=== PATIENT | female | born 1960 | race African-American/Black ===

== ENCOUNTER 2017-07-01 05:39 | Inpatient (IN) | payer MEDICARE, MEDICAID ==
[2017-07-01] VITALS (9 sets, daily range): BP systolic 105–140; BP diastolic 58–97
[~2017-07-01] VITALS: Ht 162.6 cm; Wt 155.6 kg
[~2017-07-01 05:39] MED LIST: DIPH25CA6 PO; ESCI20TA45 PO; FLUT16SP22 NSEACH; HYDR25TA4 PO; POTA10CA43 PO
[2017-07-01] MEDS ORDERED: RT-ALBUTEROL SULF 2.5 MG/3 ML PRE-MIX VIAL INH STA (05:53)
[2017-07-01 06:09] LABS: BASOPHILS % (AUTO) 0 % (0-10); EOSINOPHILS # (AUTO) 0.1 10^3/uL (0.0-0.3); EOSINOPHILS % (AUTO) 1 % (0-10); LYMPHOCYTES # (AUTO) 1.3 X 10^3 (1.0-4.0); LYMPHOCYTES % (AUTO) 9 % (12-44); MEAN CORPUSCULAR HEMOGLOBIN 28 PG (25-34); MEAN CORPUSCULAR HGB CONC 33 G/DL (32-36); MEAN CORPUSCULAR VOLUME 84 FL (80-99); MEAN PLATELET VOLUME 9.3 FL (7.4-10.4); MONOCYTES # (AUTO) 0.5 X 10^3 (0.0-1.0); MONOCYTES % (AUTO) 4 % (0-12); NEUTROPHILS % (AUTO) 86 % (42-75); PLATELET COUNT 298 10^3/uL (130-400); RED BLOOD COUNT 4.79 10^6/uL (4.35-5.85); WHITE BLOOD COUNT 13.9 10^3/uL (4.3-11.0)
[2017-07-01 06:10] LABS: BILIRUBIN,URINE NEGATIVE (NEGATIVE); KETONES,URINE NEGATIVE (NEGATIVE); LEUKOCYTE ESTERASE ,URINE 1+ (NEGATIVE); NITRITE,URINE POSITIVE (NEGATIVE); PH,URINE 6 (5-9); PROTEIN,URINE NEGATIVE (NEGATIVE); UROBILINOGEN,URINE NORMAL (NORMAL)
[2017-07-01] MEDS ORDERED: NS IV 1000 ML 1,000 ML IV ONE (06:19)
[2017-07-01 06:21] LABS: PROTHROMBIN TIME PATIENT 12.8 SEC (12.2-14.7)
--- NOTE | 2017-07-01 06:26 | ED Respiratory ---
General Chief Complaint: Respiratory Problems Stated Complaint: SOB Source: patient, old records (ONLY OTHER VISIT IS 06/18/17--ADMITTED FOR OBSERVATION FOR CHEST PAIN-WORK UP NEGATIVE AT THAT TIME. ) History of Present Illness Time seen by provider: 06:00 Initial Comments ASSUMED CARE FROM DR. STACK PT ARRIVED VIA EMS FROM HOME PT STATES SHE BEGAN HAVING DIFFICULTY BREATHING AROUND 0300 THIS AM--CLAIMS SHE FELT FINE YESTERDAY ( THANKSGIVING ) PT HAS SARCOIDOSIS AND HAS A PERMANENT TRACH AND WEARS O2 AT 3L CONTINUOUSLY-- REPORTEDLY WAS ALMOST OUT OF OXYGEN AT HOME, YET HAS AN OXYGEN CONCENTRATOR. PT HAD NEB TREATMENT PRIOR TO ARRIVAL O2 SAT 88% ON O2 AT SCENE, PER EMS. PT HAS HAD A MILD COUGH PT UNAWARE THAT SHE HAD FEVER--WAS 101.5 ON ARRIVAL TO ER NO SWELLING IN LEGS/FEET PT WAS ADMITTED HERE 06/18/17 FOR CHEST PAIN--WORK UP NEGATIVE AT THAT TIME PCP: DR. VELASCO AT [facility] PT JUST MOVED HERE IN FEBRUARY FROM [place], [place] Allergies and Home Medications Allergies Coded Allergies: No Known Drug Allergies (Unverified , 06/18/17) Home Medications Diphenhydramine HCl 25 Mg Capsule, 25 MG PO HS PRN for ITCHING, (Reported) Escitalopram Oxalate 20 Mg Tablet, 20 MG PO DAILY PRN for ANXIETY, (Reported) Fluticasone Propionate 16 Gm [place].susp, 2 SPRAYS NSEACH HS PRN for ALLERGIES, ( Reported) Hydrochlorothiazide 25 Mg Tablet, 25 MG PO DAILY, (Reported) Potassium Chloride 10 Meq Capsule.er, 10 MEQ PO DAILY, (Reported) Constitutional: weakness EENTM: no symptoms reported Respiratory: see HPI, cough, short of breath Cardiovascular: no symptoms reported, No chest pain, No edema Gastrointestinal: no symptoms reported Genitourinary: no symptoms reported Musculoskeletal: no symptoms reported Skin: no symptoms reported Psychiatric/Neurological: No Symptoms Reported Hematologic/Lymphatic: No Symptoms Reported Immunological/Allergic: no symptoms reported Past Dndwxxm-Etdfiq-Jmkhyw Hx Patient Social History Alcohol Use: Occasionally Uses (HISTORY OF ALCOHOLISM/ABUSE--1/2 PINT TO A QUART OF GIN A DAY PLUS BEER, NOW ONLY DRINKS "OCCASIONALLY"--LAST ETOH WAS A FEW WEEKS AGO, PER PT ON 07/01/17) Recreational Drug Use: Yes (SMOKED CRACK COCAINE. DENIES IV USE. LAST USED 2016, PER PT ON 07/01/17) Smoking Status: Former Smoker (2 PPD, QUIT IN 2003) Type Used: Cigarettes Former Smoker, Quit: December 10, 2003 Recent Foreign Travel: No Contact w/Someone Who Travel: No Recent Hopitalizations: No Physical Abuse: No Sexual Abuse: No Mistreated: No Fear: No Immunizations Up To Date PED Vaccines UTD: Yes Seasonal Allergies Seasonal Allergies: No Surgeries History of Surgeries: Yes (PORT RIGHT CHEST/REMOVED; ABSCESS I&D LEFT AXILLA; PERMANENT TRACHEOSTOMY) Surgeries: Tracheostomy Respiratory History of Respiratory Disorde: Yes (PT HAS TRACH D/T SARCOIDOSIS) Respiratory Disorders: Pneumonia, Chronic Bronchitis, COPD Currently Using CPAP: No Currently Using BIPAP: No Cardiovascular History of Cardiac Disorders: Yes Cardiac Disorders: High Cholesterol, Hypertension Neurological History of Neurological Disord: No Reproductive System HEDDLER TIER History: Menopausal Genitourinary History of Genitourinary Disor: No Gastrointestinal History of Gastrointestinal Di: Yes (hepatitis C treated with Harvoni in 2015- 2016; ANAL CANCER--2011) Gastrointestinal Disorders: Hepatitis Musculoskeletal History of Musculoskeletal Dis: Yes (SARCOIDOSIS) Endocrine History of Endocrine Disorders: Yes ("BORDERLINE DIABETIC"; MORBID OBESITY) HEENT History of HEENT Disorders: Yes (PERMANENT TRACH; EDENTULOUS) Cancer History of Cancer: Yes (RECTAL/ANAL CANCER IN 2011-NO SURGERY--TREATED WITH CHEMO + RADIATION) Cancer: Rectal Did You Recieve Any Treatments: Yes Type of Tx Receive: Chemotherapy, Radiation Psychosocial History of Psychiatric Problem: Yes Behavioral Health Disorders: Anxiety, Depression Suicide Risk Score: 0 Integumentary History of Skin or Integumenta: No Blood Transfusions History of Blood Disorders: No Adverse Reaction to a Blood Tr: No Family Medical History Significant Family History: Hypertension, Lung Disease Family Medial History: Patient reports no known family medical history. Physical Exam Vital Signs Vital Sign - Last 12Hours Capillary Refill : General Appearance: mild distress, obese HEENT: PERRL/EOMI Neck: other (TRACH IN PLACE) Respiratory: respiratory distress, decreased breath sounds, accessory muscle use, wheezing (EXPIRATORY WHEEZING BILATERALLY), other (MILD DISTRESS--SPEAKS IN 1-2 WORD SENTENCES, ) Cardiovascular: no murmur, tachycardia Gastrointestinal: non tender, soft Extremities: no pedal edema, normal capillary refill Neurologic/Psychiatric: wwe wrestler II-XII nml as tested, no motor/sensory deficits, alert, normal mood/affect, oriented x 3 Skin: normal color, warm/dry Focused Exam Evaluation Lactate Level Laboratory Tests 07/01/17 05:54: Lactic Acid Level 1.69 Lactic Acid Level Laboratory Tests Test 07/01/17 05:54 Lactic Acid Level 1.69 MMOL/L (0.50-2.00) Progress/Results/Core Measures Suspected Sepsis SIRS Temperature: Pulse: Respiratory Rate: Laboratory Tests 07/01/17 05:54: White Blood Count 13.9H Blood Pressure / Mean: Laboratory Tests 07/01/17 05:54: Lactic Acid Level 1.69 Laboratory Tests 07/01/17 05:54: Creatinine 0.92, INR Comment 1.0, Platelet Count 298, Total Bilirubin 0.4 Results/Orders Lab Results Laboratory Tests Test 07/01/17 05:50 07/01/17 05:54 07/01/17 06:40 Range/Units Urine Color YELLOW Urine Clarity CLEAR Urine pH 6 5-9 Urine Specific [place] 1.010 L 1.016-1.022 Urine Protein NEGATIVE NEGATIVE Urine Glucose (UA) NEGATIVE NEGATIVE Urine Ketones NEGATIVE NEGATIVE Urine Nitrite POSITIVE H NEGATIVE Urine Bilirubin NEGATIVE NEGATIVE Urine Urobilinogen NORMAL NORMAL MG/DL Urine Leukocyte Esterase 1+ H NEGATIVE Urine RBC (Auto) 1+ H NEGATIVE Urine RBC 2-5 H /HPF Urine WBC 25-50 H /HPF Urine Crystals NONE /LPF Urine Bacteria MODERATE H /HPF Urine Casts NONE /LPF Urine Mucus NEGATIVE /LPF Urine Culture Indicated YES Urine Opiates Screen NEGATIVE NEGATIVE Urine Oxycodone Screen NEGATIVE NEGATIVE Urine Methadone Screen NEGATIVE NEGATIVE Urine Propoxyphene Screen NEGATIVE NEGATIVE Urine Barbiturates Screen NEGATIVE NEGATIVE Ur Tricyclic Antidepressants Screen NEGATIVE NEGATIVE Urine Phencyclidine Screen NEGATIVE NEGATIVE Urine Amphetamines Screen NEGATIVE NEGATIVE Urine Methamphetamines Screen NEGATIVE NEGATIVE Urine Benzodiazepines Screen NEGATIVE NEGATIVE Urine Cocaine Screen NEGATIVE NEGATIVE Urine Cannabinoids Screen NEGATIVE NEGATIVE White Blood Count 13.9 H 4.3-11.0 10^3/uL Red Blood Count 4.79 4.35-5.85 10^6/uL Hemoglobin 13.2 11.5-16.0 G/DL Hematocrit 40 35-52 % Mean Corpuscular Volume 84 80-99 FL Mean Corpuscular Hemoglobin 28 25-34 PG Mean Corpuscular Hemoglobin Concent 33 32-36 G/DL Red Cell Distribution Width 15.0 H 10.0-14.5 % Platelet Count 298 130-400 10^3/uL Mean Platelet Volume 9.3 7.4-10.4 FL Neutrophils (%) (Auto) 86 H 42-75 % Lymphocytes (%) (Auto) 9 L 12-44 % Monocytes (%) (Auto) 4 0-12 % Eosinophils (%) (Auto) 1 0-10 % Basophils (%) (Auto) 0 0-10 % Neutrophils # (Auto) 12.0 H 1.8-7.8 X 10^3 Lymphocytes # (Auto) 1.3 1.0-4.0 X 10^3 Monocytes # (Auto) 0.5 0.0-1.0 X 10^3 Eosinophils # (Auto) 0.1 0.0-0.3 10^3/uL Basophils # (Auto) 0.0 0.0-0.1 10^3/uL Prothrombin Time 12.8 12.2-14.7 SEC INR Comment 1.0 0.8-1.4 Activated Partial Thromboplast Time 28 24-35 SEC Sodium Level 141 135-145 MMOL/L Potassium Level 3.2 L 3.6-5.0 MMOL/L Chloride Level 105 98-107 MMOL/L Carbon Dioxide Level 24 21-32 MMOL/L Anion Gap 12 5-14 MMOL/L Blood Urea Nitrogen 17 7-18 MG/DL Creatinine 0.92 0.60-1.30 MG/DL Estimat Glomerular Filtration Rate > 60 BUN/Creatinine Ratio 18 Glucose Level 111 H 70-105 MG/DL Lactic Acid Level 1.69 0.50-2.00 MMOL/L Calcium Level 9.1 8.5-10.1 MG/DL Magnesium Level 1.7 L 1.8-2.4 MG/DL Total Bilirubin 0.4 0.1-1.0 MG/DL Aspartate Amino Transf (AST/SGOT) 17 5-34 U/L Alanine Aminotransferase (ALT/SGPT) 20 0-55 U/L Alkaline Phosphatase 126 40-136 U/L Troponin I < 0.30 <0.30 NG/ML B-Type Natriuretic Peptide 16.7 <100.0 PG/ML Total Protein 8.3 H 6.4-8.2 GM/DL Albumin 3.6 3.2-4.5 GM/DL Serum Alcohol < 10 <10 MG/DL Blood Gas Puncture Site LT RADIAL Blood Gas Patient Temperature 101.8 Arterial Blood pH 7.39 7.37-7.43 Arterial Blood Partial Pressure CO2 44 35-45 MMHG Arterial Blood Partial Pressure O2 99 H 79-93 MMHG Arterial Blood HCO3 25 23-27 MMOL/L Arterial Blood Total CO2 26.6 21.0-31.0 MMOL/L Arterial Blood Oxygen Saturation 98 94-100 % Arterial Blood Base Excess 1.3 -2.5-2.5 MMOL/L Aj Test YES-POS Blood Gas Ventilator Setting NO Blood Gas Inspired Oxygen 6 (TRACH) Micro Results Microbiology 07/01/17 Influenza Types A,B Antigen (YAMILETH) - Final, Complete My Orders Orders - CHARITY ESPINOZA DO Methylprednisolone Sod Succ (Solu-Medrol (07/01/17 06:30) Arterial Blood Gas (07/01/17 06:19) Influenza A And B Antigens (07/01/17 06:19) Saline Lock/Iv-Start (07/01/17 06:19) Ns Iv 1000 Ml (Sodium Chloride 0.9%) (07/01/17 06:19) Acetaminophen Tablet (Tylenol Tablet) (07/01/17 06:30) Ibuprofen Tablet (Motrin Tablet) (07/01/17 06:30) Albuterol Pre-Mix Nebs (Rt) (Proventil (07/01/17 06:30) Ipratropium 0.02% Neb Solution (Atrovent (07/01/17 06:30) Svn Sm Volume Nebulizer Rt-Rfs (07/01/17 06:22) Alcohol (07/01/17 06:47) Drug Screen Stat (Urine) (07/01/17 06:47) BNP (07/01/17 06:47) Magnesium (07/01/17 06:47) Troponin I (07/01/17 06:47) Ceftriaxone Injection (Rocephin Injectio (07/01/17 07:45) Medications Given in ED Current Medications Medications Dose Ordered Sig/Sandra Route Start Time Stop Time Status Last Admin Dose Admin Acetaminophen 1,000 mg ONCE ONCE PO 07/01/17 06:30 07/01/17 06:50 DC 07/01/17 06:32 1,000 MG Ceftriaxone Sodium 1000 mg/ Sodium Chloride 50 ml @ 100 mls/hr ONCE ONCE IV 07/01/17 07:45 07/01/17 08:14 DC 07/01/17 08:20 100 MLS/HR Ibuprofen 800 mg ONCE ONCE PO 07/01/17 06:30 07/01/17 06:50 DC 07/01/17 06:32 800 MG Ipratropium Farrell 0.5 mg ONCE ONCE IH 07/01/17 06:30 07/01/17 06:50 DC 07/01/17 06:32 0.5 MG Methylprednisolone Sodium Succinate 125 mg ONCE ONCE IVP 07/01/17 06:30 07/01/17 06:31 DC 07/01/17 06:31 125 MG Sodium Chloride 1,000 ml @ 0 mls/hr Q0M ONCE IV 07/01/17 06:19 07/01/17 06:21 DC 07/01/17 06:32 1,000 MLS/HR Vital Signs/I&O Vital Sign - Last 12Hours 07/01/17 07/01/17 07/01/17 07/01/17 05:40 05:40 06:00 06:33 Temp 101.5 Pulse 169 Resp 28 B/P (MAP) 133/97 Pulse Ox 96 96 96 97 O2 Delivery OxyMask OxyMask Trach Collar Trach Collar O2 Flow Rate 6.00 6.00 6.00 6.00 Capillary Refill : Progress Note : Progress Note O2 SATS UP TO 96% DURING NEB TREATMENT., THEN UP TO 98% FOR REMAINDER OF ER STAY AFTER NEB TREATMENT, PT IS LESS DYSPNEIC, INCREASED AERATION, AND PT NOW ABLE TO TALK IN 4-7 WORD SENTENCES. TEMP DOWN TO 99 HEART RATE DOWN TO 130'S NO HYPOTENSION AT ANY TIME. NO DETERIORATION IN PT'S CONDITION DURING ER STAY ECG Initial ECG Impression Time: 06:07 Initial ECG Rate: 157 Initial ECG Rhythm: S.Tach Initial ECG Comparisson: Unchanged (EXCEPT FOR RATE) Diagnostic Imaging Comments CXR--NONSPECIFIC PATCHY BIBASILAR INFILTRATES, INFILTRATES VS EDEMA. POSSIBLY INCREASED IN SIZE FROM PREVIOUS, BUT COULD BE DUE TO BODY HABITUS OR MOTION ARTIFACT--PER RADIOLOGIST REPORT @ 0659 Reviewed: Reviewed by Me Departure Communication (Admissions) Progress Notes 0730--ATTEMPTING TO CONTACT DR. Nishant BULLOCK, [facility] FOR [facility]. MESSAGE LEFT ON CELL ( [facility] PHONE FORWARDS TO HER CELL PHONE ) 0750--ATTEMPTING TO CONTACT DR. Nishant BULLOCK, MESSAGE LEFT ON CELL 0800--ATTEMPTING TO CONTACT DR. Nishant BULLOCK, MESSAGE LEFT ON CELL. CALLED ICU AND MEDICAL FLOORS AND THEY HAVE NOT SEEN HER THIS MORNING 08--CALLED [facility], NO PHYSICIAN IS THERE YET. VERIFIED THAT DR. BULLOCK IS [facility]. THEY HAVE NOT SPOKEN WITH HER THIS MORNING 08--ATTEMPTING TO CONTACT DR. Nishant BULLOCK. MESSAGE LEFT ON CELL. 0815--CALLED [facility] AGAIN. THEY WILL CONTACT DR. AVILA AND HAVE HER CALL ER. 0835--ATTEMPTING TO CONTACT DR. BULLOCK, MESSAGE LEFT ON CELL PHONE 0836--ATTEMPTING TO CONTACT DR. AVILA, MESSAGE LEFT ON CELL PHONE 0837--SPOKE WITH DR. SANCHEZ, HOSPITALIST, ACCEPTS PT FOR ADMIT ON BEHALF OF DR. CANELA. [phone]--DR. Nishant BULLOCK CALLED, ACCEPTS PT FOR ADMIT 0845--CALLED DR. SANCHEZ AND INFORMED HER THAT DR. BULLOCK HAD BEEN CONTACTED AND SHE HAS ACCEPTED PT FOR ADMIT Impression Impression: Primary Impression: Pneumonia Additional Impressions: Hypoxia SARCOIDOSIS WITH PERMANENT TRACHEOSTOMY UTI (urinary tract infection) Sepsis Hypokalemia Hypomagnesemia History of COPD Morbid obesity Disposition: ADMITTED INPATIENT Condition: Improved Admissions Decision to Admit Reason: Admit from ER (General) Decision to Admit/Date: Jul 01, 2017 Time/Decision to Admit Time: 07:35 Departure-Patient Inst. Referrals: BRITT VELASCO MD (PCP/Family) Primary Care Physician CHARITY ESPINOZA DO Jul 01, 2017 06:26
[2017-07-01 06:29] LABS: ALANINE AMINOTRANSFERASE 20 U/L (0-55); ALBUMIN 3.6 GM/DL (3.2-4.5); ANION GAP 12 MMOL/L (5-14); ASPARTATE AMINO TRANSFERASE 17 U/L (5-34); BILIRUBIN,TOTAL 0.4 MG/DL (0.1-1.0); BLOOD UREA NITROGEN 17 MG/DL (7-18); BUN/CREATININE RATIO 18; CALCIUM 9.1 MG/DL (8.5-10.1); CARBON DIOXIDE 24 MMOL/L (21-32); CHLORIDE 105 MMOL/L (98-107); CREATININE SERUM 0.92 MG/DL (0.60-1.30); GFR ESTIMATED > 60; GLUCOSE 111 MG/DL (70-105); POTASSIUM 3.2 MMOL/L (3.6-5.0); SODIUM 141 MMOL/L (135-145); TOTAL PROTEIN 8.3 GM/DL (6.4-8.2)
[2017-07-01 06:29] LABS: WBC,URINE 25-50 /HPF
[2017-07-01] MEDS ORDERED: IBUPROFEN 800 MG (MOTRIN) TAB PO ONE (06:30)
[2017-07-01] MEDS ORDERED: methylPREDNISolone 125 MG (Solu-MEDROL) VIAL IVP ONE (06:30)
[2017-07-01] MEDS ORDERED: RT-IPRATROPIUM (ATROVENT) 0.5MG/2.5ML AMP IH ONE (06:30)
[2017-07-01] MEDS ORDERED: ACETAMINOPHEN 500 MG TAB (TYLENOL) PO ONE (06:30)
[2017-07-01] MEDS ORDERED: RT-ALBUTEROL SULF 2.5 MG/3 ML PRE-MIX VIAL IH SCH (06:30)
[2017-07-01 06:48] LABS: ABG BASE EXCESS 1.3 MMOL/L (-2.5-2.5); ABG HCO3 25 MMOL/L (23-27); ABG OXYGEN SATURATION 98 % (94-100); ABG PCO2 44 MMHG (35-45); ABG PH 7.39 (7.37-7.43); ABG PO2 99 MMHG (79-93); ABG TCO2 26.6 MMOL/L (21.0-31.0)
[2017-07-01 06:50] LABS: ALLENS TEST YES-POS; PATIENT TEMP 101.8
--- NOTE | 2017-07-01 06:55 | Diagnostic Imaging Report ---
INDICATION: Difficulty breathing. COMPARISON: 06/18/2017. FINDINGS: Patchy bibasilar pulmonary opacities appear to mildly progressed, although this could be due to respiratory motion artifact and patient body habitus. No pleural effusion or pneumothorax. Heart is borderline enlarged. Stable tracheostomy. IMPRESSION: 1. Patchy basilar opacities have mildly progressed, although this may be secondary to respiratory motion artifact and summation of soft tissues of patient's large body habitus. Multifocal pneumonia or edema could have this similar appearance in the appropriate setting. Dictated by: Dictated on workstation # [id number]
[2017-07-01 07:16] LABS: ALCOHOL < 10 MG/DL (<10); MAGNESIUM 1.7 MG/DL (1.8-2.4)
[2017-07-01 07:25] LABS: TROPONIN I < 0.30 NG/ML (<0.30)
[2017-07-01] MEDS ORDERED: cefTRIAXone INJECTION 1,000 MG in NS (IVPB) 50 ML IV ONE (07:45)
[2017-07-01] MEDS ORDERED: IBUPROFEN 800 MG (MOTRIN) TAB PO PRN (09:30)
[2017-07-01] MEDS ORDERED: AZITHROMYCIN 500 MG/NS 250 ML IVPB IV NR ×2 (09:30)
[2017-07-01] MEDS ORDERED: ACETAMINOPHEN 500 MG TAB (TYLENOL) PO PRN (09:30)
[2017-07-01] MEDS: D5 1/2 NS W/KCL 20 MEQ/L 1,000 ML IV SCH ×3 (09:46→21:30)
[2017-07-01] MEDS ORDERED: FURO20TA4 PO (10:36)
[2017-07-01] MEDS ORDERED: OMEP20CA12 PO (10:36)
[2017-07-01] MEDS: MAGNESIUM 1 GM/D5W 100 ML IVPB IV SCH ×2 (10:59→12:20)
[2017-07-01] MEDS ORDERED: RT-ALBUTEROL SULF 2.5 MG/3 ML PRE-MIX VIAL IH PRN (11:30)
[2017-07-01] MEDS: methylPREDNISolone 125 MG (Solu-MEDROL) VIAL IV SCH ×2 (12:20→18:38)
--- NOTE | 2017-07-01 14:21 | History & Physicial (CHS) ---
HPI History of Present Illness: 56yo woman with a history of sarcoidosis, trach dependent at 3L, presented to ER via EMS due to shortness of breath and fever. Patient states that her sarcoid acts up around weather changes and that she often requires hospitalizations around this time. She has an increasing cough above her norm. She has had some blood-tinged sputum. Fever to 101 when she arrived. Patient was recently hospitalized for chest pain. She moved to the area in February to live with her daughter. Source: patient Exam Limitations: no limitations Date seen by provider: Jul 01, 2017 Time Seen by Provider: 10:00 Attending Physician Sharifa Bullock MD PCP Britt Dobson MD Consult Date of Admission Jul 01, 2017 at 07:35 Home Medications Home Medications Reviewed patient Home Medication Reconciliation Form Allergies Coded Allergies: No Known Drug Allergies (Unverified , 06/18/17) UIX-Jozekc-Ybmcfy Hx Patient Social History Alcohol Use: Occasionally Uses Recreational Drug Use: Yes (SMOKED CRACK COCAINE. DENIES IV USE. LAST USED 2016, PER PT ON 07/01/17) Drug of Choice: COCAINE Smoking Status: Former Smoker Type Used: Cigarettes Recent Foreign Travel: No Contact w/other who traveled: No Recent Hopitalizations: No Recent Infectious Disease Expo: No Physical Abuse Screen: No Sexual Abuse: No Immunizations Up To Date Date of Influenza Vaccine: Jun 08, 2017 Family Medical History Significant Family History: Hypertension, Lung Disease Family History: Patient reports no known family medical history. Review of Systems (CHC) Constitutional: see HPI All Other Systems Reviewed Negative Unless Noted: Yes (Negative excepted noted.) Reviewed Test Results Reviewed Test Results Lab Laboratory Tests Test 07/01/17 05:50 07/01/17 05:54 07/01/17 06:40 07/02/17 05:00 Range/Units Urine Color YELLOW Urine Clarity CLEAR Urine pH 6 5-9 Urine Specific [place] 1.010 L 1.016-1.022 Urine Protein NEGATIVE NEGATIVE Urine Glucose (UA) NEGATIVE NEGATIVE Urine Ketones NEGATIVE NEGATIVE Urine Nitrite POSITIVE H NEGATIVE Urine Bilirubin NEGATIVE NEGATIVE Urine Urobilinogen NORMAL NORMAL MG/DL Urine Leukocyte Esterase 1+ H NEGATIVE Urine RBC (Auto) 1+ H NEGATIVE Urine RBC 2-5 H /HPF Urine WBC 25-50 H /HPF Urine Crystals NONE /LPF Urine Bacteria MODERATE H /HPF Urine Casts NONE /LPF Urine Mucus NEGATIVE /LPF Urine Culture Indicated YES Urine Opiates Screen NEGATIVE NEGATIVE Urine Oxycodone Screen NEGATIVE NEGATIVE Urine Methadone Screen NEGATIVE NEGATIVE Urine Propoxyphene Screen NEGATIVE NEGATIVE Urine Barbiturates Screen NEGATIVE NEGATIVE Ur Tricyclic Antidepressants Screen NEGATIVE NEGATIVE Urine Phencyclidine Screen NEGATIVE NEGATIVE Urine Amphetamines Screen NEGATIVE NEGATIVE Urine Methamphetamines Screen NEGATIVE NEGATIVE Urine Benzodiazepines Screen NEGATIVE NEGATIVE Urine Cocaine Screen NEGATIVE NEGATIVE Urine Cannabinoids Screen NEGATIVE NEGATIVE White Blood Count 13.9 H 20.7 H 4.3-11.0 10^3/uL Red Blood Count 4.79 4.45 4.35-5.85 10^6/uL Hemoglobin 13.2 12.3 11.5-16.0 G/DL Hematocrit 40 37 35-52 % Mean Corpuscular Volume 84 83 80-99 FL Mean Corpuscular Hemoglobin 28 28 25-34 PG Mean Corpuscular Hemoglobin Concent 33 33 32-36 G/DL Red Cell Distribution Width 15.0 H 15.1 H 10.0-14.5 % Platelet Count 298 305 130-400 10^3/uL Mean Platelet Volume 9.3 9.9 7.4-10.4 FL Neutrophils (%) (Auto) 86 H 93 H 42-75 % Lymphocytes (%) (Auto) 9 L 5 L 12-44 % Monocytes (%) (Auto) 4 2 0-12 % Eosinophils (%) (Auto) 1 0 0-10 % Basophils (%) (Auto) 0 0 0-10 % Neutrophils # (Auto) 12.0 H 19.3 H 1.8-7.8 X 10^3 Lymphocytes # (Auto) 1.3 1.0 1.0-4.0 X 10^3 Monocytes # (Auto) 0.5 0.4 0.0-1.0 X 10^3 Eosinophils # (Auto) 0.1 0.0 0.0-0.3 10^3/uL Basophils # (Auto) 0.0 0.0 0.0-0.1 10^3/uL Prothrombin Time 12.8 12.2-14.7 SEC INR Comment 1.0 0.8-1.4 Activated Partial Thromboplast Time 28 24-35 SEC Sodium Level 141 137 135-145 MMOL/L Potassium Level 3.2 L 3.3 L 3.6-5.0 MMOL/L Chloride Level 105 104 98-107 MMOL/L Carbon Dioxide Level 24 22 21-32 MMOL/L Anion Gap 12 11 5-14 MMOL/L Blood Urea Nitrogen 17 16 7-18 MG/DL Creatinine 0.92 0.84 0.60-1.30 MG/DL Estimat Glomerular Filtration Rate > 60 > 60 BUN/Creatinine Ratio 18 19 Glucose Level 111 H 205 H 70-105 MG/DL Lactic Acid Level 1.69 0.50-2.00 MMOL/L Calcium Level 9.1 9.1 8.5-10.1 MG/DL Magnesium Level 1.7 L 2.4 1.8-2.4 MG/DL Total Bilirubin 0.4 0.4 0.1-1.0 MG/DL Aspartate Amino Transf (AST/SGOT) 17 11 5-34 U/L Alanine Aminotransferase (ALT/SGPT) 20 16 0-55 U/L Alkaline Phosphatase 126 107 40-136 U/L Troponin I < 0.30 <0.30 NG/ML B-Type Natriuretic Peptide 16.7 <100.0 PG/ML Total Protein 8.3 H 7.9 6.4-8.2 GM/DL Albumin 3.6 3.4 3.2-4.5 GM/DL Serum Alcohol < 10 <10 MG/DL Blood Gas Puncture Site LT RADIAL Blood Gas Patient Temperature 101.8 Arterial Blood pH 7.39 7.37-7.43 Arterial Blood Partial Pressure CO2 44 35-45 MMHG Arterial Blood Partial Pressure O2 99 H 79-93 MMHG Arterial Blood HCO3 25 23-27 MMOL/L Arterial Blood Total CO2 26.6 21.0-31.0 MMOL/L Arterial Blood Oxygen Saturation 98 94-100 % Arterial Blood Base Excess 1.3 -2.5-2.5 MMOL/L Aj Test YES-POS Blood Gas Ventilator Setting NO Blood Gas Inspired Oxygen 6 (TRACH) Neutrophils % (Manual) 87 % Lymphocytes % (Manual) 4 % Monocytes % (Manual) 2 % Band Neutrophils 7 % Blood Morphology Comment NORMAL Radiology Date of Exam: 07/01/17 CHEST 1 VIEW, AP/PA ONLY INDICATION: Difficulty breathing. COMPARISON: 06/18/2017. FINDINGS: Patchy bibasilar pulmonary opacities appear to mildly progressed, although this could be due to respiratory motion artifact and patient body habitus. No pleural effusion or pneumothorax. Heart is borderline enlarged. Stable tracheostomy. IMPRESSION: 1. Patchy basilar opacities have mildly progressed, although this may be secondary to respiratory motion artifact and summation of soft tissues of patient's large body habitus. Multifocal pneumonia or edema could have this similar appearance in the appropriate setting. Physical Exam-([facility]) Physical Exam Vital Signs VS - Last 72 Hours, by Label 07/01/17 07/01/17 07/01/17 07/01/17 05:40 05:40 06:00 06:33 Temp 101.5 Pulse 169 Resp 28 B/P (MAP) 133/97 Pulse Ox 96 96 96 97 O2 Delivery OxyMask OxyMask Trach Collar Trach Collar O2 Flow Rate 6.00 6.00 6.00 6.00 07/01/17 07/01/17 07/01/17 07/01/17 09:00 09:30 10:30 11:10 Temp 99.1 97.6 Pulse 115 117 138 Resp 22 20 B/P (MAP) 105/60 126/76 Pulse Ox 97 97 97 O2 Delivery Trach Collar Non Rebreather Trach Collar O2 Flow Rate 6.00 6.00 FiO2 45 07/01/17 07/01/17 07/01/17 07/01/17 11:10 11:30 11:51 12:30 Pulse 131 126 110 B/P (MAP) 116/71 108/76 Pulse Ox 97 96 95 95 O2 Delivery Non Rebreather Trach Collar Non Rebreather O2 Flow Rate 6.00 12.00 6.00 FiO2 45 07/01/17 07/01/17 07/01/17 07/01/17 12:35 14:53 16:03 18:07 Temp 97.2 Pulse 120 99 Resp 20 B/P (MAP) 106/58 Pulse Ox 96 96 95 O2 Delivery Trach Collar Trach Collar FiO2 30 30 07/01/17 07/01/17 07/01/17 07/01/17 18:50 19:00 20:30 21:00 Temp 96.9 96.3 Pulse 101 118 96 Resp 22 20 B/P (MAP) 127/82 131/81 Pulse Ox 97 94 O2 Delivery Non Rebreather Non Rebreather Trach Collar O2 Flow Rate 6.00 6.00 8.00 07/01/17 07/01/17 07/02/17 07/02/17 22:07 23:11 01:00 03:22 Temp 96.9 Pulse 106 88 Resp 22 B/P (MAP) 140/97 Pulse Ox 96 91 96 O2 Delivery Trach Collar Non Rebreather Trach Collar O2 Flow Rate 6.00 FiO2 30 30 07/02/17 07/02/17 07/02/17 07/02/17 04:00 07:00 07:30 08:00 Temp 96.8 97.1 Pulse 89 82 75 Resp 24 20 B/P (MAP) 124/66 134/72 Pulse Ox 97 95 95 O2 Delivery Non Rebreather Trach Collar Non Rebreather O2 Flow Rate 6.00 6.00 6.00 FiO2 30 07/02/17 07/02/17 07/02/17 09:00 11:11 12:00 Temp 97.3 Pulse 84 Resp 20 B/P (MAP) 144/82 Pulse Ox 95 95 96 O2 Delivery Non Rebreather Trach Collar Non Rebreather O2 Flow Rate 6.00 6.00 6.00 FiO2 30 Capillary Refill : Less Than 3 Seconds General Appearance: WD/WN, mild distress (short of breath), obese HEENT: PERRL/EOMI, normal ENT inspection, pharynx normal Neck: non-tender, full range of motion, supple, normal inspection, other ( trach clean, clear) Respiratory: respiratory distress (mild), decreased breath sounds, rhonchi Cardiovascular: regular rate, rhythm, no edema, no gallop, no JVD, no murmur Gastrointestinal: normal bowel sounds, non tender, soft, no organomegaly, no pulsatile mass Back: normal inspection, no CVA tenderness, no vertebral tenderness Extremities: normal range of motion, non-tender, normal inspection, no pedal edema, no calf tenderness, normal capillary refill Neurologic/Psychiatric: pss delivery professional II-XII nml as tested, no motor/sensory deficits, alert, normal mood/affect, oriented x 3 Skin: normal color, warm/dry Clinical Quality Measures DVT/VTE Risk/Contraindication: Risk Factor Score Per Nursin RFS Level Per Nursing on Admit: 4+=Very High Copy Copies To 1: BRITT DOBSON MD Assessment/Plan Assessment/Plan Admission Dx BILATERAL PNEUMONIA, ATYPICAL SARCOIDOSIS TRACH DEPENDENCY ADM: Patient was admitted for bilateral pneumonia. WE will give her steroids as well as Rocephin/Zmax. Our mainspring winder and oiler is not in house, but we will consult him if she is still in hospital when he returns on Tuesday. She appears to be improving already. No sign of sepsis at presentation. ATRIAL FIBRILLATION ADM: metoprolol prn with good response earlier today. DVT PROPH: SCDs ,early ambulation Plan BILATERAL PNEUMONIA, ATYPICAL SARCOIDOSIS TRACH DEPENDENCY ADM: Patient was admitted for bilateral pneumonia. WE will give her steroids as well as Rocephin/Zmax. Our mainspring winder and oiler is not in house, but we will consult him if she is still in hospital when he returns on Tuesday. She appears to be improving already. No sign of sepsis at presentation. ATRIAL FIBRILLATION ADM: metoprolol prn with good response earlier today. DVT PROPH: SCDs ,early ambulation SHARIFA BULLOCK MD Jul 01, 2017 2:21 pm
[2017-07-01] MEDS ORDERED: meTOprolol TARTRATE 25 MG (LOPRESSOR) TABLET PO NR (14:30)
[2017-07-01] MEDS ORDERED: FLUTICASONE NASAL SPRAY (FLONASE) 16 GM BTL NS PRN (14:30)
[2017-07-01] MEDS ORDERED: NON-FORMULARY MEDICATION 1 EA EA (Escitalopram Oxalate 20 MG) PO PRN (14:30)
[2017-07-01] MEDS: RT-ALBUTEROL/IPRATROPIUM 3 ML (DUONEB) VIAL INH SCH ×3 (14:53→22:06)
[2017-07-02] MEDS: methylPREDNISolone 125 MG (Solu-MEDROL) VIAL IV SCH ×3 (00:24→12:01)
[2017-07-02] MEDS: RT-ALBUTEROL/IPRATROPIUM 3 ML (DUONEB) VIAL INH SCH ×6 (03:19→22:24)
[2017-07-02 04:00] VITALS: BP 124/66
[2017-07-02] MEDS: PANTOPRAZOLE 20 MG TABLET (PROTONIX) PO SCH (05:37)
[2017-07-02] MEDS: cefTRIAXone 1 GM/NS 50 ML IVPB IV SCH ×2 (05:37)
[2017-07-02 05:43] LABS: BASOPHILS % (AUTO) 0 % (0-10); EOSINOPHILS % (AUTO) 0 % (0-10); LYMPHOCYTES % (AUTO) 5 % (12-44); MEAN CORPUSCULAR HEMOGLOBIN 28 PG (25-34); MEAN CORPUSCULAR HGB CONC 33 G/DL (32-36); MEAN CORPUSCULAR VOLUME 83 FL (80-99); MEAN PLATELET VOLUME 9.9 FL (7.4-10.4); MONOCYTES # (AUTO) 0.4 X 10^3 (0.0-1.0); MONOCYTES % (AUTO) 2 % (0-12); NEUTROPHILS # (AUTO) 19.3 X 10^3 (1.8-7.8); NEUTROPHILS % (AUTO) 93 % (42-75); PLATELET COUNT 305 10^3/uL (130-400); RED BLOOD COUNT 4.45 10^6/uL (4.35-5.85); RED CELL DISTRIBUTION WIDTH 15.1 % (10.0-14.5); WHITE BLOOD COUNT 20.7 10^3/uL (4.3-11.0)
[2017-07-02 05:46] LABS: ALANINE AMINOTRANSFERASE 16 U/L (0-55); ALBUMIN 3.4 GM/DL (3.2-4.5); ANION GAP 11 MMOL/L (5-14); ASPARTATE AMINO TRANSFERASE 11 U/L (5-34); BILIRUBIN,TOTAL 0.4 MG/DL (0.1-1.0); BLOOD UREA NITROGEN 16 MG/DL (7-18); BUN/CREATININE RATIO 19; CALCIUM 9.1 MG/DL (8.5-10.1); CARBON DIOXIDE 22 MMOL/L (21-32); CHLORIDE 104 MMOL/L (98-107); CREATININE SERUM 0.84 MG/DL (0.60-1.30); GFR ESTIMATED > 60; GLUCOSE 205 MG/DL (70-105); MAGNESIUM 2.4 MG/DL (1.8-2.4); POTASSIUM 3.3 MMOL/L (3.6-5.0); SODIUM 137 MMOL/L (135-145); TOTAL PROTEIN 7.9 GM/DL (6.4-8.2)
[2017-07-02 06:36] LABS: BAND NEUTROPHILS 7 %; LYMPHOCYTES % (MANUAL) 4 %; NEUTROPHILS % (MANUAL) 87 %
[2017-07-02 08:00] VITALS: BP 134/72
[2017-07-02] MEDS ORDERED: OMEPRAZOLE 20 MG (PriLOSEC) CAP NON-FORMULARY PO SCH (09:00)
[2017-07-02] MEDS: AZITHROMYCIN 250 MG TAB (ZITHROMAX) PO SCH (09:02)
[2017-07-02] MEDS: D5 1/2 NS W/KCL 20 MEQ/L 1,000 ML IV SCH ×3 (11:32→23:02)
--- NOTE | 2017-07-02 11:40 | Diagnostic Imaging Report ---
INDICATION: Pneumonia followup. FINDINGS: Two views show heart size and vascularity to be upper normal. There is bilateral discoid atelectasis with no infiltrates or effusions seen. Tracheostomy tube is present. IMPRESSION: There is discoid atelectasis with no infiltrate seen. Dictated by: Dictated on workstation # [id number]
[2017-07-02 12:00] VITALS: BP 144/82
--- NOTE | 2017-07-02 14:51 | Progress Note (SOAP) ---
Subjective Subjective/Events-last exam Patient states she is feeling better this morning. When approached about assisted living, says this is not necessary as she has had the trach for 15 years. Having minor amounts of blood tinged sputum, mostly dark brown sputum. Review of Systems Date Seen by Provider: Jul 02, 2017 Time Seen by Provider: 09:30 Pulmonary: No Dyspnea, Cough Cardiovascular: No: Chest Pain Objective Exam Last Set of Vital Signs Vital Signs Date Time Temp Pulse Resp B/P (MAP) Pulse Ox O2 Delivery O2 Flow Rate FiO2 07/02/17 13:00 89 07/02/17 12:00 97.3 20 144/82 96 Non Rebreather 6.00 07/02/17 11:11 30 Capillary Refill : Less Than 3 Seconds I&O Intake and Output 07/03/17 00:00 Intake Total 1040 ml Balance 1040 ml Intake Oral 1040 ml # Voids 4 General: Alert, Oriented X3, Cooperative, No Acute Distress Lungs: Clear to Auscultation, Normal Air Movement Heart: Regular Rate, Normal S1, Normal S2, No Murmurs, Gallops, Rubs Abdomen: Normal Bowel Sounds, Soft, No Tenderness, No Hepatosplenomegaly, No Masses Extremities: No Clubbing, No Cyanosis, No Edema Psych/Mental Status: Mental Status NL, Mood NL Results/Procedures Lab Laboratory Tests 07/02/17 05:00: White Blood Count 20.7H, Red Blood Count 4.45, Hemoglobin 12.3, Hematocrit 37, Mean Corpuscular Volume 83, Mean Corpuscular Hemoglobin 28, Mean Corpuscular Hemoglobin Concent 33, Red Cell Distribution Width 15.1H, Platelet Count 305, Mean Platelet Volume 9.9, Neutrophils (%) (Auto) 93H, Lymphocytes (%) (Auto) 5L , Monocytes (%) (Auto) 2, Eosinophils (%) (Auto) 0, Basophils (%) (Auto) 0, Neutrophils # (Auto) 19.3H, Lymphocytes # (Auto) 1.0, Monocytes # (Auto) 0.4, Eosinophils # (Auto) 0.0, Basophils # (Auto) 0.0, Neutrophils % (Manual) 87, Lymphocytes % (Manual) 4, Monocytes % (Manual) 2, Band Neutrophils 7, Blood Morphology Comment NORMAL, Sodium Level 137, Potassium Level 3.3L, Chloride Level 104, Carbon Dioxide Level 22, Anion Gap 11, Blood Urea Nitrogen 16, Creatinine 0.84, Estimat Glomerular Filtration Rate > 60, BUN/Creatinine Ratio 19, Glucose Level 205H, Calcium Level 9.1, Magnesium Level 2.4, Total Bilirubin 0.4, Aspartate Amino Transf (AST/SGOT) 11, Alanine Aminotransferase (ALT/SGPT) 16, Alkaline Phosphatase 107, Total Protein 7.9, Albumin 3.4 Microbiology 07/01/17 Influenza Types A,B Antigen (YAMILETH) - Final, Complete 07/01/17 Urine Culture - Final, Complete Escherichia Coli Radiology Date of Exam: 07/01/17 CHEST 1 VIEW, AP/PA ONLY INDICATION: Difficulty breathing. COMPARISON: 06/18/2017. FINDINGS: Patchy bibasilar pulmonary opacities appear to mildly progressed, although this could be due to respiratory motion artifact and patient body habitus. No pleural effusion or pneumothorax. Heart is borderline enlarged. Stable tracheostomy. IMPRESSION: 1. Patchy basilar opacities have mildly progressed, although this may be secondary to respiratory motion artifact and summation of soft tissues of patient's large body habitus. Multifocal pneumonia or edema could have this similar appearance in the appropriate setting. Assessment/Plan Assessment/Plan Plan BILATERAL PNEUMONIA, ATYPICAL SARCOIDOSIS TRACH DEPENDENCY ADM: Patient was admitted for bilateral pneumonia. WE will give her steroids as well as Rocephin/Zmax. Our marketing regional consultant is not in house, but we will consult him if she is still in hospital when he returns on Tuesday. She appears to be improving already. No sign of sepsis at presentation. 07/02 - CXR shows infiltrates resolved. pt improved. wean solumdrol to 40 q8h. GNR, probable Pseudomonas, would be c/w [facility] trach. As pt clinically improved, will contiue w Rocephin and Zmax for now. Will change if Pseudomonas is resistant. ACUTE CYSTITIS 07/02 - present on admission, E coli sens to ceftriaxone. ATRIAL FIBRILLATION ADM: metoprolol prn with good response earlier today. 07/02 - NSR today DVT PROPH: SCDs ,early ambulation Clinical Quality Measures DVT/VTE Risk/Contraindication: Risk Factor Score Per Nursin RFS Level Per Nursing on Admit: 4+=Very High SHARIFA BULLOCK MD Jul 02, 2017 2:51 pm
[2017-07-02 15:34] VITALS: BP 128/72
[2017-07-02 19:11] VITALS: BP 130/83
[2017-07-02] MEDS: methylPREDNISolone 40 MG/ML (Solu-MEDROL) VIAL IV SCH (19:56)
[2017-07-02] MEDS ORDERED: methylPREDNISolone 125 MG (Solu-MEDROL) VIAL IV SCH (20:00)
[2017-07-02 23:30] VITALS: BP 118/65
[2017-07-03] MEDS: RT-ALBUTEROL/IPRATROPIUM 3 ML (DUONEB) VIAL INH SCH ×6 (02:25→21:13)
[2017-07-03] MEDS: methylPREDNISolone 40 MG/ML (Solu-MEDROL) VIAL IV SCH ×3 (04:12→23:51)
[2017-07-03 04:20] VITALS: BP 125/69
[2017-07-03 06:00] LABS: MEAN PLATELET VOLUME 9.7 FL (7.4-10.4); RED BLOOD COUNT 4.28 10^6/uL (4.35-5.85); RED CELL DISTRIBUTION WIDTH 15.5 % (10.0-14.5); WHITE BLOOD COUNT 23.3 10^3/uL (4.3-11.0)
[2017-07-03] MEDS: cefTRIAXone 1 GM/NS 50 ML IVPB IV SCH ×2 (06:01)
[2017-07-03] MEDS: PANTOPRAZOLE 20 MG TABLET (PROTONIX) PO SCH (06:01)
[2017-07-03 06:18] LABS: ANION GAP 7 MMOL/L (5-14); BLOOD UREA NITROGEN 16 MG/DL (7-18); BUN/CREATININE RATIO 20; CALCIUM 8.8 MG/DL (8.5-10.1); CARBON DIOXIDE 24 MMOL/L (21-32); CHLORIDE 108 MMOL/L (98-107); CREATININE SERUM 0.82 MG/DL (0.60-1.30); GFR ESTIMATED > 60; GLUCOSE 233 MG/DL (70-105); SODIUM 139 MMOL/L (135-145)
[2017-07-03] MEDS: D5 1/2 NS W/KCL 20 MEQ/L 1,000 ML IV SCH ×2 (07:33→15:43)
[2017-07-03 08:00] VITALS: BP 130/74
[2017-07-03] MEDS: AZITHROMYCIN 250 MG TAB (ZITHROMAX) PO SCH (08:37)
[2017-07-03] MEDS ORDERED: PREPARATION H OINTMENT 57 GR TUBE PR PRN (11:15)
--- NOTE | 2017-07-03 11:26 | Progress Note (SOAP) ---
Subjective Subjective/Events-last exam Pt sitting up in bed, reports she is doing very well today. Still having dark brown sputum. States her grandkids were all sick last week and she was the last to get it. Has never had Pseudomonas in the past that she is aware of. Review of Systems Date Seen by Provider: Jul 03, 2017 Time Seen by Provider: 10:30 Pulmonary: No Dyspnea Cardiovascular: No: Chest Pain Objective Exam Last Set of Vital Signs Vital Signs Date Time Temp Pulse Resp B/P (MAP) Pulse Ox O2 Delivery O2 Flow Rate FiO2 07/03/17 09:00 96 Trach Collar 8.00 07/03/17 08:00 96.0 77 24 130/74 07/03/17 07:18 30 Capillary Refill : Less Than 3 Seconds I&O Intake and Output 07/04/17 00:00 Intake Total 1150 ml Output Total 100 ml Balance 1050 ml Intake Oral 100 ml IV Total 1050 ml Output Urine Total 100 ml # Voids 1 # Bowel Movements 1 Daily Weight Change No General: Alert, Oriented X3, Cooperative, No Acute Distress Lungs: Clear to Auscultation, Normal Air Movement Heart: Regular Rate, Normal S1, Normal S2, No Murmurs, Gallops, Rubs Abdomen: Normal Bowel Sounds, Soft, No Tenderness, No Hepatosplenomegaly, No Masses Extremities: No Clubbing, No Cyanosis, No Edema Psych/Mental Status: Mental Status NL, Mood NL Results/Procedures Lab Laboratory Tests 07/03/17 05:20: White Blood Count 23.3H, Red Blood Count 4.28L, Hemoglobin 11.8, Hematocrit 36, Mean Corpuscular Volume 84, Mean Corpuscular Hemoglobin 28, Mean Corpuscular Hemoglobin Concent 33, Red Cell Distribution Width 15.5H, Platelet Count 325, Mean Platelet Volume 9.7, Sodium Level 139, Potassium Level 4.0, Chloride Level 108H, Carbon Dioxide Level 24, Anion Gap 7, Blood Urea Nitrogen 16, Creatinine 0.82, Estimat Glomerular Filtration Rate > 60, BUN/Creatinine Ratio 20, Glucose Level 233H, Calcium Level 8.8 Microbiology 07/01/17 Blood Culture - Preliminary, Resulted No growth 07/01/17 Influenza Types A,B Antigen (YAMILETH) - Final, Complete 07/01/17 Urine Culture - Final, Complete Escherichia Coli Radiology Date of Exam: 07/01/17 CHEST 1 VIEW, AP/PA ONLY INDICATION: Difficulty breathing. COMPARISON: 06/18/2017. FINDINGS: Patchy bibasilar pulmonary opacities appear to mildly progressed, although this could be due to respiratory motion artifact and patient body habitus. No pleural effusion or pneumothorax. Heart is borderline enlarged. Stable tracheostomy. IMPRESSION: 1. Patchy basilar opacities have mildly progressed, although this may be secondary to respiratory motion artifact and summation of soft tissues of patient's large body habitus. Multifocal pneumonia or edema could have this similar appearance in the appropriate setting. Assessment/Plan Assessment/Plan Plan BILATERAL PNEUMONIA, ATYPICAL SARCOIDOSIS TRACH DEPENDENCY ADM: Patient was admitted for bilateral pneumonia. WE will give her steroids as well as Rocephin/Zmax. Our artist's representative is not in house, but we will consult him if she is still in hospital when he returns on Tuesday. She appears to be improving already. No sign of sepsis at presentation. 07/02 - CXR shows infiltrates resolved. pt improved. wean solumdrol to 40 q8h. GNR, probable Pseudomonas, would be c/w retirement trach. As pt clinically improved, will contiue w Rocephin and Zmax for now. Will change if Pseudomonas is resistant. 07/03 - Pseudomonas and proteus. Change to levaquin 750 q24h. Wean solumedrol to 40 q12h. Plan for DC tomorrow. Pt states she had home health in [place], will arrange at DC. ACUTE CYSTITIS 07/02 - present on admission, E coli sens to ceftriaxone. 07/03 - sens to levaquin. ATRIAL FIBRILLATION ADM: metoprolol prn with good response earlier today. 07/02 - NSR today DVT PROPH: SCDs ,early ambulation Clinical Quality Measures DVT/VTE Risk/Contraindication: Risk Factor Score Per Nursin RFS Level Per Nursing on Admit: 4+=Very High SHARIFA BULLOCK MD Jul 03, 2017 11:26 am
[2017-07-03 12:00] VITALS: BP 116/75
[2017-07-03 15:46] VITALS: BP 137/71
[2017-07-03] MEDS ORDERED: PRED10TA22 PO (16:20)
[2017-07-03] MEDS ORDERED: LEVO750T9 PO (16:20)
[2017-07-03] MEDS ORDERED: LEVOFLOXACIN 750 MG TAB (LEVAQUIN) PO SCH (16:30)
[2017-07-03 19:51] VITALS: BP 133/72
[2017-07-04 00:37] VITALS: BP 126/75
[2017-07-04] MEDS: RT-ALBUTEROL/IPRATROPIUM 3 ML (DUONEB) VIAL INH SCH ×3 (01:44→10:23)
[2017-07-04 04:12] VITALS: BP 140/71
[2017-07-04] MEDS: PANTOPRAZOLE 20 MG TABLET (PROTONIX) PO SCH (06:04)
[2017-07-04 06:25] LABS: MEAN PLATELET VOLUME 9.5 FL (7.4-10.4); RED BLOOD COUNT 4.3 10^6/uL (4.35-5.85); RED CELL DISTRIBUTION WIDTH 15.7 % (10.0-14.5); WHITE BLOOD COUNT 17.1 10^3/uL (4.3-11.0)
[2017-07-04 06:41] LABS: ANION GAP 8 MMOL/L (5-14); BLOOD UREA NITROGEN 18 MG/DL (7-18); BUN/CREATININE RATIO 23; CALCIUM 8.6 MG/DL (8.5-10.1); CARBON DIOXIDE 23 MMOL/L (21-32); CHLORIDE 109 MMOL/L (98-107); GFR ESTIMATED > 60; GLUCOSE 174 MG/DL (70-105); POTASSIUM 4.2 MMOL/L (3.6-5.0); SODIUM 140 MMOL/L (135-145)
[2017-07-04 08:00] VITALS: BP 132/77
--- NOTE | 2017-07-04 11:12 | D/C HH Face to Face Order ---
D/C Face to Face Orders Instructions for Patient Patient Instructions/FollowUp: --[facility] WILL MAKE AN APPOINTMENT WITH DR OGDEN, THE LUNG SPECIALIST IN [place] --THE NURSE FROM [facility] WILL CALL YOU WITH AN APPOINTMENT WITH DR BULLOCK WELL Physician to follow Patient: KOBE Discharge Diet for Home: Cardiac Diet Patient Problems: SARCOIDOSIS OSAS MORBID OBESITY Goals for Patient: REDUCED HOSPITALIZATIONS INCREASED INDEPENDENCE OF ADL'S AT HOME Patient Data-Allergies,Ht & Wt Patient Allergies: Coded Allergies: No Known Drug Allergies (Unverified , 06/18/17) Height (Feet): 5 Height (Inches): 4.00 Weight (Pounds): 343 Weight (Ounces): 0.0 Home Health Need/Face to Face Date of Face to Face: Jul 04, 2017 Clinical Findings: Immune-compromised, Shortness of breath I have seen Pt [id number]: Yes Discharged To: Home Diagnosis/Conditions: SARCOIDOSIS PROBABLE COPD OSAS Problems/Diagnosis/Condition: Patient is Homebound due to: Shortness of breath/distress OXYGEN AND TRACH DEPENDENT Homebound Status Due to the above stated illness, injury or surgical procedure (medical condition or diagnosis) and associated clinical findings, the patient is homebound because of his/her inability to leave home except with aid of a supportive device and/or person AND leaving the home requires a considerable and taxing effort or is medically contraindicated. Pt req the following assistanc: Aid of another person Home Health Nursing Orders Home Health Services Order: Nursing Services, Investment Banking Associate-Evaluate & Treat, Physical Therapy-Evaluate & Treat Home Health Infusion Therapy Line Start Date: Jul 01, 2017 Line Start Time: 0554 Line Type: Site Location: Therapy Orders Therapy Orders: OT (must have SN or PT order), Physical Therapy, PT to assess for OT Therapy Specific Orders: Eval assistive deivces, Increase strength/endurance Certify Stmt I certify that this patient is under my care and that I, a nurse practitioner or a physician; a assistant import manager working with me, had a face to face encounter that - meets the physician face to face encounter requirements with this patient as dated. Copy Copies To 1: SHARIFA BULLOCK MD, JULIE A MD Jul 03, 2017 4:24 pm
--- NOTE | 2017-07-04 11:18 | Discharge Summary ---
Diagnosis/Chief Complaint Date of Admission Jul 01, 2017 at 7:35 am Date of Discharge July 04, 2017 Admission Diagnosis Admission Diagnosis SEE BELOW Discharge Diagnosis BILATERAL PNEUMONIA, ATYPICAL SARCOIDOSIS TRACH DEPENDENCY ADM: Patient was admitted for bilateral pneumonia. WE will give her steroids as well as Rocephin/Zmax. Our fishing accessories maker is not in house, but we will consult him if she is still in hospital when he returns on Tuesday. She appears to be improving already. No sign of sepsis at presentation. 07/02 - CXR shows infiltrates resolved. pt improved. wean solumdrol to 40 q8h. GNR, probable Pseudomonas, would be c/w [facility] trach. As pt clinically improved, will contiue w Rocephin and Zmax for now. Will change if Pseudomonas is resistant. 07/03 - Pseudomonas and proteus. Change to levaquin 750 q24h. Wean solumedrol to 40 q12h. Plan for DC tomorrow. Pt states she had home health in [place], will arrange at DC. DIS - will DC today. arrange follow up with Dr Menezes as an outpatient and with myself. Steroid taper as well as Levaquin. ACUTE CYSTITIS 07/02 - present on admission, E coli sens to ceftriaxone. 07/03 - sens to levaquin. DIS - levaquin at discharge. ATRIAL FIBRILLATION ADM: metoprolol prn with good response earlier today. 07/02 - NSR today DIS - no further events while in house. Chief Complaint/HPI Chief Complaint/HPI 56yo woman with a history of sarcoidosis, trach dependent at 3L, presented to ER via EMS due to shortness of breath and fever. Patient states that her sarcoid acts up around weather changes and that she often requires hospitalizations around this time. She has an increasing cough above her norm. She has had some blood-tinged sputum. Fever to 101 when she arrived. Patient was recently hospitalized for chest pain. She moved to the area in February to live with her daughter. Discharge Summary-Simple/Stand Consultations Discharge Physical Examination Allergies: Coded Allergies: No Known Drug Allergies (Unverified , 06/18/17) Vitals & I&Os Vital Sign - Last 12Hours Date Time Temp Pulse Resp B/P (MAP) Pulse Ox O2 Delivery O2 Flow Rate FiO2 07/04/17 10:23 96 Trach Collar 8.00 30 07/04/17 08:00 96.0 80 20 132/77 General Appearance: Alert, Oriented X3, Cooperative, No Acute Distress Respiratory: Clear to Auscultation, Normal Air Movement Cardiovascular: Regular Rate, Normal S1, Normal S2, No Murmurs, Gallops, Rubs Abdominal: Normal Bowel Sounds, Soft, No Tenderness, No Hepatosplenomegaly, No Masses Extremities: No Clubbing, No Cyanosis, No Edema Hospital Course See final discharge diagnosis. Labs Laboratory Tests Test 07/02/17 05:00 07/03/17 05:20 07/04/17 06:17 Range/Units White Blood Count 20.7 H 23.3 H 17.1 H 4.3-11.0 10^3/uL Red Blood Count 4.45 4.28 L 4.30 L 4.35-5.85 10^6/uL Hemoglobin 12.3 11.8 11.8 11.5-16.0 G/DL Hematocrit 37 36 37 35-52 % Mean Corpuscular Volume 83 84 85 80-99 FL Mean Corpuscular Hemoglobin 28 28 27 25-34 PG Mean Corpuscular Hemoglobin Concent 33 33 32 32-36 G/DL Red Cell Distribution Width 15.1 H 15.5 H 15.7 H 10.0-14.5 % Platelet Count 305 325 335 130-400 10^3/uL Mean Platelet Volume 9.9 9.7 9.5 7.4-10.4 FL Neutrophils (%) (Auto) 93 H 42-75 % Lymphocytes (%) (Auto) 5 L 12-44 % Monocytes (%) (Auto) 2 0-12 % Eosinophils (%) (Auto) 0 0-10 % Basophils (%) (Auto) 0 0-10 % Neutrophils # (Auto) 19.3 H 1.8-7.8 X 10^3 Lymphocytes # (Auto) 1.0 1.0-4.0 X 10^3 Monocytes # (Auto) 0.4 0.0-1.0 X 10^3 Eosinophils # (Auto) 0.0 0.0-0.3 10^3/uL Basophils # (Auto) 0.0 0.0-0.1 10^3/uL Neutrophils % (Manual) 87 % Lymphocytes % (Manual) 4 % Monocytes % (Manual) 2 % Band Neutrophils 7 % Blood Morphology Comment NORMAL Sodium Level 137 139 140 135-145 MMOL/L Potassium Level 3.3 L 4.0 4.2 3.6-5.0 MMOL/L Chloride Level 104 108 H 109 H 98-107 MMOL/L Carbon Dioxide Level 22 24 23 21-32 MMOL/L Anion Gap 11 7 8 5-14 MMOL/L Blood Urea Nitrogen 16 16 18 7-18 MG/DL Creatinine 0.84 0.82 0.80 0.60-1.30 MG/DL Estimat Glomerular Filtration Rate > 60 > 60 > 60 BUN/Creatinine Ratio 19 20 23 Glucose Level 205 H 233 H 174 H 70-105 MG/DL Calcium Level 9.1 8.8 8.6 8.5-10.1 MG/DL Magnesium Level 2.4 1.8-2.4 MG/DL Total Bilirubin 0.4 0.1-1.0 MG/DL Aspartate Amino Transf (AST/SGOT) 11 5-34 U/L Alanine Aminotransferase (ALT/SGPT) 16 0-55 U/L Alkaline Phosphatase 107 40-136 U/L Total Protein 7.9 6.4-8.2 GM/DL Albumin 3.4 3.2-4.5 GM/DL Radiology Reviewed Date of Exam: 07/01/17 CHEST 1 VIEW, AP/PA ONLY INDICATION: Difficulty breathing. COMPARISON: 06/18/2017. FINDINGS: Patchy bibasilar pulmonary opacities appear to mildly progressed, although this could be due to respiratory motion artifact and patient body habitus. No pleural effusion or pneumothorax. Heart is borderline enlarged. Stable tracheostomy. IMPRESSION: 1. Patchy basilar opacities have mildly progressed, although this may be secondary to respiratory motion artifact and summation of soft tissues of patient's large body habitus. Multifocal pneumonia or edema could have this similar appearance in the appropriate setting. Discharge Instructions to patient/family Please see electronic discharge instructions given to patient. Discharge Medications Reviewed and agree with Discharge Medication list on patient's Discharge Instruction sheet Clinical Quality Measures DVT/VTE Risk/Contraindication: Risk Factor Score Per Nursin RFS Level Per Nursing on Admit: 4+=Very High Copy Copies To 1: STEPHEN MENEZES DO Copies To 2: SHARIFA BULLOCK MD, JULIE A MD Jul 04, 2017 11:18 am
[2017-07-04] MEDS: methylPREDNISolone 40 MG/ML (Solu-MEDROL) VIAL IV SCH (11:24)
[2017-07-04 12:00] VITALS: BP 146/78
[2017-07-04 14:25] VITALS: BP 146/78
--- NOTE | 2017-07-06 08:08 | Physician Query-Pneumonia ---
Physician Query-Pneumonia Query to Physician: We need your assistance to accurately assign a code / DRG. Physician participation is requested in all cases of travel sales consultant uncertainty to minimize errors in code assignment and to avoid compliance issues. Based on documentation of pneumonia in the record, a review of the record revealed: Risk Factors: Permanent Tracheostomy Sarcoidosis Positive sputum culture for: Proteus Mirabilis, Pseudomonas Aeruginosa Treatment: Rocephin, Zithromax, Levaquin and Solu Medrol PHYSICIAN RESPONSE: Specific type of pneumonia: Pseudomonas, Proteus If you have questions please contact: Hardware Engineer: Elin Stallings [facility] Ext:[phone] or [phone] Thank you for your time and cooperation. Clinical Quantitative Analyst/Hardware Engineer This is a permanent part of the medical record ELIN STALLINGS Jul 06, 2017 08:08 SHARIFA BULLOCK MD Jul 09, 2017 12:37
== END 2017-07-04 14:25 | disposition home health service (06) | DRG 178 ==
LOC: EDUNIT# 05:39 → ER 05:40 → 4TH 07:35
PROVIDERS: ADMIT Pediatrics; ATTEND Pediatrics
DX: J15.1 Pneumonia due to Pseudomonas (principal); J15.6 Pneumonia due to other Gram-negative bacteria; R04.2 Hemoptysis; D86.9 Sarcoidosis, unspecified; Z93.0 Tracheostomy status; N30.00 Acute cystitis without hematuria; B96.20 Unspecified Escherichia coli [E. coli] as the cause of diseases classified elsewhere; Z68.43 Body mass index [BMI] 50.0-59.9, adult; R06.03 Acute respiratory distress; R09.02 Hypoxemia; I48.91 Unspecified atrial fibrillation; E87.6 Hypokalemia; E83.42 Hypomagnesemia; J44.9 Chronic obstructive pulmonary disease, unspecified; E66.01 Morbid (severe) obesity due to excess calories; I10 Essential (primary) hypertension; E78.00 Pure hypercholesterolemia, unspecified; F10.20 Alcohol dependence, uncomplicated; F14.10 Cocaine abuse, uncomplicated; K08.109 Complete loss of teeth, unspecified cause, unspecified class; R73.03 Prediabetes; F41.9 Anxiety disorder, unspecified; F32.9 Major depressive disorder, single episode, unspecified; Z99.81 Dependence on supplemental oxygen; Z87.891 Personal history of nicotine dependence; Z86.19 Personal history of other infectious and parasitic diseases; Z85.048 Personal history of other malignant neoplasm of rectum, rectosigmoid junction, and anus; Z92.3 Personal history of irradiation; Z92.21 Personal history of antineoplastic chemotherapy
CPT/HCPCS: 36415; 71010; 71020; 80048; 80053; 80306; 80320; 81000; 82805; 83605; 83735; 83880; 84484; 85007; 85025; 85027; 85610; 85730; 87040; 87070; 87077; 87088; 87186; 87205; 87804; 93005; 94640; 94760; 96361; 96365; 96375

== ENCOUNTER → 2017-07-12 | Outpatient (CLI) | payer MEDICARE, MEDICAID ==
[~2017-07-12] MED LIST changes: +FURO20TA4 PO; +LEVO750T9 PO; +OMEP20CA12 PO; +PRED10TA22 PO
--- NOTE | 2017-07-12 14:05 | Diagnostic Imaging Report ---
EXAMINATION: Hepatic ultrasound. INDICATION: History of hepatitis C. FINDINGS: The visualized portions of the pancreas appear unremarkable. The liver is fairly homogeneous without focal lesion. The craniocaudal diagonal measurement is 20 cm, mildly enlarged. There are multiple gallstones seen with borderline gallbladder wall thickness of 3.4 mm. No pericholecystic fluid. Sonographic Munguia's sign is reportedly positive however. The CBD is obscured by bowel gas. The right kidney is 8 cm in length. No hydronephrosis or focal lesion seen. No fluid collection in the upper right abdomen is noted. IMPRESSION: 1. Cholelithiasis. Sonographic Munguia sign is reportedly positive without pericholecystic fluid. Correlate clinically for possible early mild acute or chronic cholecystitis. 2. Hepatomegaly. Report was faxed to office of Dr. Odilia Dobson by olivia at 2:05 pm. Dictated by: Dictated on workstation # [id number]
== END ==
LOC: RAD 09:32
PROVIDERS: ATTEND Family Medicine
DX: K80.20 Calculus of gallbladder without cholecystitis without obstruction (principal); R16.0 Hepatomegaly, not elsewhere classified; B19.20 Unspecified viral hepatitis C without hepatic coma
CPT/HCPCS: 76705

== ENCOUNTER → 2017-08-17 | Outpatient (CLI) | payer MEDICARE, MEDICAID | LOC: RAD 08:55 | PROVIDERS: ATTEND Physician Assistant | DX: Z12.31 Encounter for screening mammogram for malignant neoplasm of breast (principal) | CPT/HCPCS: 77067 ==

== ENCOUNTER → 2017-08-17 | Outpatient (CLI) | payer MEDICARE, MEDICAID ==
--- NOTE | 2017-08-17 12:53 | Diagnostic Imaging Report ---
EXAMINATION: PA and lateral chest at 12:10 p.m. INDICATION: Shortness of breath. FINDINGS: The borderline cardiomegaly noted on the prior exam of 07/02/2017 is again evident and essentially no different; however, the strands of atelectasis involving the lung bases seen on the prior study have resolved. The central pulmonary vascularity does not seem quite as prominent as on the prior exam either. There is no sign of pneumonia, failure, or of a pleural effusion at this time. The mediastinum is not widened. The osseous structures are intact. The tracheostomy tube seen previously remains in good position. IMPRESSION: The appearance to the chest has improved as both lungs are better aerated. There is still borderline cardiomegaly, but there is no acute cardiopulmonary abnormality identified. Dictated by: Dictated on workstation # [id number]
== END ==
LOC: RAD 11:25
PROVIDERS: ATTEND Nurse Practitioner Family
DX: R06.00 Dyspnea, unspecified (principal); D86.9 Sarcoidosis, unspecified; J44.9 Chronic obstructive pulmonary disease, unspecified
CPT/HCPCS: 71046

== ENCOUNTER → 2017-12-14 | Outpatient (CLI) | payer MEDICARE, MEDICAID ==
[2017-12-14 12:21] LABS: ABG BASE EXCESS 6.2 MMOL/L (-2.5-2.5); ABG OXYGEN SATURATION 99 % (94-100); ABG PCO2 45 MMHG (35-45); ABG PH 7.44 (7.37-7.43); ABG PO2 90 MMHG (79-93); ABG TCO2 31.9 MMOL/L (21.0-31.0)
[2017-12-14 12:24] LABS: ALLENS TEST YES-POS; INSPIRED O2 3; PATIENT TEMP 97.4; VENTILATOR NO
== END ==
LOC: RT 11:56
PROVIDERS: ATTEND Nurse Practitioner Family
DX: J44.9 Chronic obstructive pulmonary disease, unspecified (principal)
CPT/HCPCS: 36600; 82805

== ENCOUNTER 2018-05-23 13:00 | Outpatient (RCR) | payer MEDICARE, MEDICAID ==
[2018-03-28 13:00] VITALS: BP 121/68
[2018-03-30 12:50] VITALS: BP 120/60
[2018-03-30 13:55] VITALS: BP 118/64
[2018-04-06 13:00] VITALS: BP 120/70
[2018-04-06 13:40] VITALS: BP 110/80
[2018-04-13 13:00] VITALS: BP 125/80
[2018-04-13 14:00] VITALS: BP 140/60
[2018-04-18 13:00] VITALS: BP 120/60
[2018-04-18 14:00] VITALS: BP 120/60
[2018-04-20 13:00] VITALS: BP 123/60
[2018-04-20 14:00] VITALS: BP 143/60
[2018-04-25 13:00] VITALS: BP 127/51
[2018-04-25 13:55] VITALS: BP 125/60
[2018-04-27 13:05] VITALS: BP 100/70
[2018-04-27 13:58] VITALS: BP 140/50
[2018-05-04 12:45] VITALS: BP 135/50
[2018-05-04 13:50] VITALS: BP 125/50
[2018-05-18 13:00] VITALS: BP 142/64
[2018-05-18 14:00] VITALS: BP 121/70
[2018-05-23 13:00] VITALS: BP 115/60
[2018-05-23 14:00] VITALS: BP 120/70
[2018-05-30 13:00] VITALS: BP 116/74
[2018-05-30 14:00] VITALS: BP 175/40
== END 2018-05-28 | disposition home or self-care (01) ==
LOC: PULM 13:00
PROVIDERS: ATTEND Nurse Practitioner Family
DX: J45.909 Unspecified asthma, uncomplicated (principal); J44.9 Chronic obstructive pulmonary disease, unspecified; R09.02 Hypoxemia
CPT/HCPCS: 99211

== ENCOUNTER 2018-06-22 13:00 | Outpatient (RCR) | payer MEDICARE, MEDICAID ==
[2018-06-01 13:00] VITALS: BP 158/60
[2018-06-01 13:51] VITALS: BP 125/80
[2018-06-06 13:00] VITALS: BP 145/70
[2018-06-06 14:00] VITALS: BP 122/80
[2018-06-08 13:00] VITALS: BP 132/82
[2018-06-08 14:00] VITALS: BP 136/82
[2018-06-13 13:00] VITALS: BP 118/70
[2018-06-13 13:54] VITALS: BP 110/80
[2018-06-22 13:00] VITALS: BP 136/87
[2018-06-22 14:05] VITALS: BP_SYST 136; BP_SYST 138; BP_DIAS 60; BP_DIAS 87
== END 2018-08-30 | disposition home or self-care (01) ==
LOC: PULM 13:00
PROVIDERS: ATTEND Nurse Practitioner Family
DX: J45.909 Unspecified asthma, uncomplicated (principal); J44.9 Chronic obstructive pulmonary disease, unspecified; R09.02 Hypoxemia

== ENCOUNTER → 2018-09-25 | Outpatient (CLI) | payer MEDICARE, MEDICAID ==
--- NOTE | 2018-09-25 10:44 | Diagnostic Imaging Report ---
INDICATION: Routine screening. Comparison is made with prior mammogram from 08/17/2017 and 03/09/2012. 2-D and 3-D bilateral screening mammography was performed with a Computer Aided Detection (CAD) system. FINDINGS: Both breasts are primarily involutional. There are biopsy marker clips in the left breast. No mass or malignant appearing microcalcifications are seen. Axillae are unremarkable. IMPRESSION: No mammographic features suspicious for malignancy are identified. ACR BI-RADS Category 2: Benign findings. Result letter will be mailed to the patient. Note: At least 10% of breast cancer is not imaged by mammography. Dictated by: Dictated on workstation # [id number]
== END ==
LOC: RAD 08:48
PROVIDERS: ATTEND Pediatrics
DX: Z12.31 Encounter for screening mammogram for malignant neoplasm of breast (principal)
CPT/HCPCS: 77067

== ENCOUNTER 2018-11-25 22:12 | Emergency (ER) | payer MEDICARE, MEDICAID ==
[~2018-11-25] VITALS: Ht 165.1 cm; Wt 152.0 kg
--- OUTSIDE RECORDS SUMMARY | 2018-11-25 22:17 | XMS REPORT ---
Author Author SHARIFA BULLOCK Organization [facility] Address [address] 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 Active 137604582255 Problem Chronic hepatitis C without hepatic coma B18.2 Active 320935212 Problem Rotator cuff syndrome of left shoulder M75.102 Active 923727187166767 Problem Urge incontinence of urine N39.41 Active 47210402 Problem Major depression, chronic F34.1 Active 866794745 Problem Chronic pain G89.29 Active 95846435 Problem Gait instability R26.81 Active 06548629 Problem Body mass index (BMI) of 50-59.9 in adult Z68.43 Active 715115324 Problem Morbid (severe) obesity due to excess calories E66.01 Active 963011065 Problem Sarcoidosis of lung D86.0 Active 94666318 Problem 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 Active 928150877 Problem Essential hypertension I10 Active 03209123 ALLERGIES No Information ENCOUNTERS Encounter Location Date Diagnosis [facility] [id number] [address] Jul, [facility] [id number], [place] [address] Jun, Rotator cuff syndrome of left shoulder M75.102 and Essential hypertension I10 [facility] [id number] [place] [address] 89170- 5948 Jun, Essential hypertension I10 and Chronic hepatitis C without hepatic coma B18.2 [facility] [id number], [place] [address] Jun, Essential hypertension I10 [facility] [id number] [place] [address] 15647- 6037 May, [facility] [address] [address]- [address] May, Essential hypertension I10 ; Sarcoidosis of lung D86.0 ; Major depression, chronic F34.1 ; Morbid (severe) obesity due to excess calories E66.01 ; Reflux esophagitis K21.0 and Left anterior shoulder pain M25.512 [place] [address] [address]- [address] Apr, [place] [address] [address]- 3435 Mar, [place] [address] [address]- 4285 Mar, [place] [address] 57265- 8603 Mar, Sarcoidosis of lung D86.0 ; 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 ; Gait instability R26.81 ; Other complicated headache syndrome G44.59 ; Chronic pain G89.29 and BMI 50.0-59.9, adult Z68.43 [facility] [id number] [place] [address] 20122 -9687 Feb, Shortness of breath R06.02 ; Cough R05 and Bronchitis J40 [facility] [id number] [place] [address] 28513- 0240 Feb, At risk for falls Z91.81 ; Gait instability R26.81 and Urge incontinence of urine N39.41 [facility] [address] [address]- 4486 Feb, [place] [address] [address]- 1227 Feb, [facility] [address] 28414- 7475 Feb, [place] [id number] [place] [address] 62848- 2194 Jan, [place] [address] 29341- 1310 Jan, Sarcoidosis of lung D86.0 ; 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 ; 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 and BMI 50.0-59.9, adult Z68.43 [place] [address] 764[address]- 2027 Jan, [address] [address]- 8166 Jan, Sarcoidosis of lung D86.0 [place] [id number] [place] [address] 35092- 8868 Nov, Medicare annual wellness visit, initial Z00.00 ; Morbid ( severe) obesity due to excess calories E66.01 ; Sarcoidosis of lung D86.0 ; 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 ; Essential hypertension I10 ; Reflux esophagitis K21.0 ; History of anal cancer Z85.048 ; 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 ; Major depression, chronic F34.1 ; Screening for osteoporosis Z13.820 and BMI 50.0-59.9, adult Z68.43 [place] [id number] [place] [address] 23074- 4153 Nov, Sarcoidosis of lung D86.0 [place] [id number] [place] [address] 94562- 9240 Nov, Sarcoidosis of lung D86.0 [place] [id number] [place] [address] 45145- 3474 Oct, Urge incontinence of urine N39.41 ; Sarcoidosis of lung D86.0 ; History of anal cancer Z85.048 ; Dermatitis L30.9 and BMI 50.0-59.9, adult Z68.43 [place] [id number] [place] [address] 49265- 0619 Sep, [facility] [id number] [place] [address] 90829- 2265 29 Jul, 2017 Rash and nonspecific skin eruption R21 ; Skin change R23.9 ; Screening for breast cancer Z12.31 and BMI 50.0-59.9, adult Z68.43 [facility] [id number] [place] [address] 34601- 2422 20 Jul, 2017 History of anal cancer Z85.048 ; Encounter for immunization Z23 ; Sarcoidosis of lung D86.0 ; Essential hypertension I10 and BMI 50.0-59.9, adult Z68.[address] 13671- 0269 05 Jul, 2017 [facility] [address] 37542- 7659 30 Jun, [address] 31059- 1140 14 Jun, 2017 Atypical chest pain R07.89 ; Body mass index (BMI) of 50- 59.9 in adult Z68.43 ; Morbid (severe) obesity due to excess calories E66.01 ; Elevated LFTs R79.89 ; Reflux esophagitis K21.0 and 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 [facility] [id number] [place] [address] 04457- 2196 Jun, [facility] [id number] [place] [address] 64765 -6576 May, Acute exacerbation of chronic obstructive pulmonary disease (COPD) J44.1 [facility] [address] [place] [id number] [place] [address]- 1980 May, [address] 16432- 2047 May, Chronic hepatitis C without hepatic coma B18.2 [place] [id number] [place] [address] 09695- 1133 May, Chronic hepatitis C without hepatic coma B18.2 [facility] [address] [facility] [id number] [place] [address] Apr, Chronic hepatitis C without hepatic coma B18.2 ; 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 ; Sarcoidosis of lung D86.0 ; Screening for diabetes mellitus (DM) Z13.1 ; Screening for lipid disorders Z13.220 ; Essential hypertension I10 ; Body mass index (BMI) of 50-59.9 in adult Z68.43 ; Morbid (severe) obesity due to excess calories E66.01 and Nasal congestion R09.81 [facility] [address] [facility] [id number] [place] [address] Apr, IMMUNIZATIONS No Known Immunizations SOCIAL HISTORY Never Assessed REASON FOR VISIT Lab (walk-in) PLAN OF CARE Activity Details Pending Test LIPID PANEL Pending Test CMP Pending Test CBC Pending Test TSH VITAL SIGNS MEDICATIONS Unknown Medications RESULTS No Results PROCEDURES Procedure Date Ordered Result Body Site LAB NOT BILLED BY [facility] Jun 15, 2018 VENTIM, ROUTINE* Jun 15, 2018 INSTRUCTIONS MEDICATIONS ADMINISTERED No Known Medications MEDICAL (GENERAL) HISTORY Type Description Date Medical History sarcoidosis - trach/oxygen dependent Medical History asthma Medical History hypertension Medical History anemia Medical History depression Medical History 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
--- OUTSIDE RECORDS SUMMARY | 2018-11-25 22:17 | XMS REPORT ---
Author Author SHARIFA BULLOCK Organization [facility] Address [address] 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 Active 532462046136 Problem Chronic hepatitis C without hepatic coma B18.2 Active 864647309 Problem Rotator cuff syndrome of left shoulder M75.102 Active 451671323959712 Problem Urge incontinence of urine N39.41 Active 09922694 Problem Major depression, chronic F34.1 Active 454080490 Problem Chronic pain G89.29 Active 72451835 Problem Gait instability R26.81 Active 92596053 Problem Body mass index (BMI) of 50-59.9 in adult Z68.43 Active 081086699 Problem Morbid (severe) obesity due to excess calories E66.01 Active 931094146 Problem Sarcoidosis of lung D86.0 Active 71297211 Problem 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 Active 912803107 Problem Essential hypertension I10 Active 20306410 ALLERGIES No Information ENCOUNTERS Encounter Location Date Diagnosis [facility] [id number] [address] Jul, [facility] [id number], [place] [address] Jun, Rotator cuff syndrome of left shoulder M75.102 and Essential hypertension I10 [facility] [id number] [place] [address] 36876- 0302 Jun, Essential hypertension I10 and Chronic hepatitis C without hepatic coma B18.2 [facility] [id number], [place] [address] Jun, Essential hypertension I10 [facility] [id number] [place] [address] 19136- 6439 May, [facility] [address] [address]- 6708 May, Essential hypertension I10 ; Sarcoidosis of lung D86.0 ; Major depression, chronic F34.1 ; Morbid (severe) obesity due to excess calories E66.01 ; Reflux esophagitis K21.0 and Left anterior shoulder pain M25.512 [place] [address] [address]- [address]60 Apr, [place] [address] 93756- 0749 Mar, [place] [address] 208[address]- 2742 Mar, [place] [address] 29880- 3762 Mar, Sarcoidosis of lung D86.0 ; 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 ; Gait instability R26.81 ; Other complicated headache syndrome G44.59 ; Chronic pain G89.29 and BMI 50.0-59.9, adult Z68.43 [facility] [id number] [place] [address] 72974 -6830 Feb, Shortness of breath R06.02 ; Cough R05 and Bronchitis J40 [facility] [id number] [place] [address] 60148- 4054 Feb, At risk for falls Z91.81 ; Gait instability R26.81 and Urge incontinence of urine N39.41 [facility] [address] 86101- 1440 Feb, [place] [address] 56802- 1133 Feb, [facility] [address] 36593- 7155 Feb, [place] [id number] [place] [address] 64571- 8015 Jan, [place] [address] 19639- 8767 Jan, Sarcoidosis of lung D86.0 ; 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 ; 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 and BMI 50.0-59.9, adult Z68.43 [place] [address] 20409- 7948 Jan, [address] 7[address]76- 4786 Jan, Sarcoidosis of lung D86.0 [place] [id number] [place] [address] 08910- 2936 Nov, Medicare annual wellness visit, initial Z00.00 ; Morbid ( severe) obesity due to excess calories E66.01 ; Sarcoidosis of lung D86.0 ; 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 ; Essential hypertension I10 ; Reflux esophagitis K21.0 ; History of anal cancer Z85.048 ; 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 ; Major depression, chronic F34.1 ; Screening for osteoporosis Z13.820 and BMI 50.0-59.9, adult Z68.43 [place] [id number] [place] [address] 02558- 7025 Nov, Sarcoidosis of lung D86.0 [place] [id number] [place] [address] 20439- 2266 Nov, Sarcoidosis of lung D86.0 [place] [id number] [place] [address] 90951- 5387 Oct, Urge incontinence of urine N39.41 ; Sarcoidosis of lung D86.0 ; History of anal cancer Z85.048 ; Dermatitis L30.9 and BMI 50.0-59.9, adult Z68.43 [place] [id number] [place] [address] 20312- 3952 Sep, [facility] [id number] [place] [address] 57037- 8103 29 Jul, 2017 Rash and nonspecific skin eruption R21 ; Skin change R23.9 ; Screening for breast cancer Z12.31 and BMI 50.0-59.9, adult Z68.43 [facility] [id number] [place] [address] 82752- 9784 20 Jul, 2017 History of anal cancer Z85.048 ; Encounter for immunization Z23 ; Sarcoidosis of lung D86.0 ; Essential hypertension I10 and BMI 50.0-59.9, adult Z68.[address] 26050- 8875 05 Jul, 2017 [facility] [address] 92265- 7288 30 Jun, [address] 39852- 3154 14 Jun, 2017 Atypical chest pain R07.89 ; Body mass index (BMI) of 50- 59.9 in adult Z68.43 ; Morbid (severe) obesity due to excess calories E66.01 ; Elevated LFTs R79.89 ; Reflux esophagitis K21.0 and 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 [facility] [id number] [place] [address] 70928- 9357 Jun, [facility] [id number] [place] [address] 73890 -4984 May, Acute exacerbation of chronic obstructive pulmonary disease (COPD) J44.1 [facility] [address] [place] [id number] [place] [address] 91007- 2014 May, [address] 55961- 7875 May, Chronic hepatitis C without hepatic coma B18.2 [place] [id number] [place] [address] 90400- 3596 May, Chronic hepatitis C without hepatic coma B18.2 [facility] [address] [facility] [id number] [place] [address] Apr, Chronic hepatitis C without hepatic coma B18.2 ; 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 ; Sarcoidosis of lung D86.0 ; Screening for diabetes mellitus (DM) Z13.1 ; Screening for lipid disorders Z13.220 ; Essential hypertension I10 ; Body mass index (BMI) of 50-59.9 in adult Z68.43 ; Morbid (severe) obesity due to excess calories E66.01 and Nasal congestion R09.81 [facility] [address] [facility] [id number] [place] [address] Apr, IMMUNIZATIONS No Known Immunizations SOCIAL HISTORY Never Assessed REASON FOR VISIT DME Order PLAN OF CARE VITAL SIGNS MEDICATIONS Unknown Medications RESULTS No Results PROCEDURES No Known procedures INSTRUCTIONS MEDICATIONS ADMINISTERED No Known Medications MEDICAL [...] History hepatitis C - successfully treated in [place] Medical History chronic obstructive pulmonary disease (COPD) Surgical History trachiotomy 2003 Surgical History [place] Hospitalization History Surgery(s)/Childbirth(s) Hospitalization History Chest pain - [facility] 06/19/17 Hospitalization History pneumonia, sepsis, hypoxia, uTI, sarcoidosis - [facility] 07/01/17
--- OUTSIDE RECORDS SUMMARY | 2018-11-25 22:17 | XMS REPORT ---
Author Author SHARIFA BULLOCK Organization [facility] Address [address] 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 Active 378581762601 Problem Chronic hepatitis C without hepatic coma B18.2 Active 613218089 Problem Rotator cuff syndrome of left shoulder M75.102 Active 637412780522184 Problem Urge incontinence of urine N39.41 Active 30017744 Problem Major depression, chronic F34.1 Active 681633138 Problem Chronic pain G89.29 Active 18023874 Problem Gait instability R26.81 Active 76144558 Problem Body mass index (BMI) of 50-59.9 in adult Z68.43 Active 847904156 Problem Morbid (severe) obesity due to excess calories E66.01 Active 492483888 Problem Sarcoidosis of lung D86.0 Active 45586868 Problem 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 Active 830934640 Problem Essential hypertension I10 Active 07088477 ALLERGIES No Information ENCOUNTERS Encounter Location Date Diagnosis [facility] [id number], [place] [address] Aug, [facility] [id number], [place] [address]- [address] Jul, Reflux esophagitis K21.0 [facility] [id number] [place] [address] 21014- 2614 Jun, Rotator cuff syndrome of left shoulder M75.102 and Essential hypertension I10 [facility] [id number], [place] [address]- 2374 Jun, Essential hypertension I10 and Chronic hepatitis C without hepatic coma B18.2 [facility] [id number] [place] [address] 14777- 9499 Jun, Essential hypertension I10 [facility] [id number] [place] [address] 49723- 9685 May, [place] [id number] [place] [address] 35367- 7110 May, Essential hypertension I10 ; Sarcoidosis of lung D86.0 ; Major depression, chronic F34.1 ; Morbid (severe) obesity due to excess calories E66.01 ; Reflux esophagitis K21.0 and Left anterior shoulder pain M25.512 [place] [address] 67574- 3858 Apr, [place] [address] 10396- 8804 Mar, [place] [address] 94360- 4114 Mar, [place] [address] 42723- 6635 Mar, Sarcoidosis of lung D86.0 ; 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 ; Gait instability R26.81 ; Other complicated headache syndrome G44.59 ; Chronic pain G89.29 and BMI 50.0-59.9, adult Z68.43 [facility] [id number] [place] [address] 77685 -1707 Feb, Shortness of breath R06.02 ; Cough R05 and Bronchitis J40 [place] [address] 31558- 7763 Feb, At risk for falls Z91.81 ; Gait instability R26.81 and Urge incontinence of urine N39.41 [facility] [address] 18960- 8018 Feb, [place] [address] [place] [address]- 2235 Feb, [facility] [id number] [place] [address] 88362- 2002 Feb, [facility] [id number] [place] [address] 26986- 9835 Jan, [place] [id number] [place] [address] 53311- 9281 Jan, Sarcoidosis of lung D86.0 ; 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 ; 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 and BMI 50.0-59.9, adult Z68.43 [place] [address] 18232- 3231 Jan, [place] [id number] [place] [address] 48300- 7148 Jan, Sarcoidosis of lung D86.0 [place] [id number] [place] [address] 57411- 5504 Nov, Medicare annual wellness visit, initial Z00.00 ; Morbid ( severe) obesity due to excess calories E66.01 ; Sarcoidosis of lung D86.0 ; 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 ; Essential hypertension I10 ; Reflux esophagitis K21.0 ; History of anal cancer Z85.048 ; 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 ; Major depression, chronic F34.1 ; Screening for osteoporosis Z13.820 and BMI 50.0-59.9, adult Z68.43 [place] [address] [place] [address] 64439- 6228 Nov, Sarcoidosis of lung D86.0 [place] [id number] [place] [address] 46734- 8631 Nov, Sarcoidosis of lung D86.0 [place] [id number] [place] [address] 38020- 5139 Oct, Urge incontinence of urine N39.41 ; Sarcoidosis of lung D86.0 ; History of anal cancer Z85.048 ; Dermatitis L30.9 and BMI 50.0-59.9, adult Z68.43 [place] [id number] [place] [address] 22463- 5413 Sep, [place] [address] 27765- 2017 Jul, Rash and nonspecific skin eruption R21 ; Skin change R23.9 ; Screening for breast cancer Z12.31 and BMI 50.0-59.9, adult Z68.43 [place] [address] 85082- 2668 Jul, History of anal cancer Z85.048 ; Encounter for immunization Z23 ; Sarcoidosis of lung D86.0 ; Essential hypertension I10 and BMI 50.0-59.9, adult Z68.43 [place] [address] 95886- 1363 Jul, [address] 20523- 6666 Jun, [address] 98545- 9482 14 Jun, 2017 Atypical chest pain R07.89 ; Body mass index (BMI) of 50- 59.9 in adult Z68.43 ; Morbid (severe) obesity due to excess calories E66.01 ; Elevated LFTs R79.89 ; Reflux esophagitis K21.0 and 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 [place] [id number] [place] [address] 26157- 1819 Jun, [facility] [id number] [place] [address] 99933 -7207 May, Acute exacerbation of chronic obstructive pulmonary disease (COPD) J44.[address] 73722- 4805 May, [address] 05802- 9082 May, Chronic hepatitis C without hepatic coma B18.2 [facility] [address] [facility] [id number] [place] [address] 6483 May, Chronic hepatitis C without hepatic coma B18.2 [facility] [address] [facility] [id number] [address]- 7809 Apr, Chronic hepatitis C without hepatic coma B18.2 ; 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 ; Sarcoidosis of lung D86.0 ; Screening for diabetes mellitus (DM) Z13.1 ; Screening for lipid disorders Z13.220 ; Essential hypertension I10 ; Body mass index (BMI) of 50-59.9 in adult Z68.43 ; Morbid (severe) obesity due to excess calories E66.01 and Nasal congestion R09.81 [facility] [address] [facility] [id number] [address]115 Apr, IMMUNIZATIONS No Known Immunizations SOCIAL HISTORY Never Assessed REASON FOR VISIT [facility] call PLAN OF CARE VITAL SIGNS MEDICATIONS Medication Instructions Dosage Frequency Start Date End Date Duration Status Omeprazole 20 mg Orally Once a day 1 capsule 24h May, 90 days Active RESULTS No Results PROCEDURES No Known procedures [...] History hepatitis C - successfully treated in [place] Medical History chronic obstructive pulmonary disease (COPD) Surgical History trachiotomy 2003 Surgical History [facility] Hospitalization History Surgery(s)/Childbirth(s) Hospitalization History Chest pain - [facility] 06/19/17 Hospitalization History pneumonia, sepsis, hypoxia, uTI, sarcoidosis - [facility] 07/01/17
--- OUTSIDE RECORDS SUMMARY | 2018-11-25 22:18 | XMS REPORT ---
Author Author SHARIFA BULLOCK Organization [facility] Address [address] 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 263460133 Problem Body mass index (BMI) of 50-59.9 in adult Z68.43 Active 003872801 Problem Morbid (severe) obesity due to excess calories E66.01 Active 272509375 Problem Chronic pain G89.29 Active 35250888 Problem Gait instability R26.81 Active 26746939 Problem History of anal cancer Z85.048 Active 789629502947876 Problem 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 Active 602539626248 Problem Urge incontinence of urine N39.41 Active 77305096 Problem Major depression, chronic F34.1 Active 712992960 ALLERGIES No Known Allergies ENCOUNTERS Encounter Location Date Diagnosis [place] [id number] [place] [address] 36439- 3659 Apr, [facility] [address] [place] [address] 10866- 6761 Mar, [facility] [id number] [place] [address] 84916- 0668 Mar, [facility] [address] 15164- 9973 Mar, Sarcoidosis of lung D86.0 ; 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 ; Gait instability R26.81 ; Other complicated headache syndrome G44.59 ; Chronic pain G89.29 and BMI 50.0-59.9, adult Z68.43 [facility] [address] [address] Feb, Shortness of breath R06.02 ; Cough R05 and Bronchitis J40 [facility] [id number] [place] [address] 26686- 0162 Feb, At risk for falls Z91.81 ; Gait instability R26.81 and Urge incontinence of urine N39.41 [place] [address] [id number] [place] [address] 85939- 5271 Feb, [place] [address] [place] [id number] [place] [address] 97507- 3807 Feb, [place] [address] [id number] [place] [address] 58015- 1215 Feb, [place] [address] [address] [id number] [place] [address] 37234- 8740 Jan, [place] [address] [id number] [place] [address] 73013- 4270 Jan, Sarcoidosis of lung D86.0 ; 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 ; 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 and BMI 50.0-59.9, adult Z68.43 [facility] [id number] [place] [address] 97256- 4558 Jan, [place] [address] [address] [id number] [place] [address] 38366- 5227 Jan, Sarcoidosis of lung D86.0 [place] [address] [address] [id number] [place] [address] 44253- 1065 Nov, Medicare annual wellness visit, initial Z00.00 ; Morbid ( severe) obesity due to excess calories E66.01 ; Sarcoidosis of lung D86.0 ; 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 ; Essential hypertension I10 ; Reflux esophagitis K21.0 ; History of anal cancer Z85.048 ; 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 ; Major depression, chronic F34.1 ; Screening for osteoporosis Z13.820 and BMI 50.0-59.9, adult Z68.43 [place] [address] 22607- 0127 Nov, Sarcoidosis of lung D86.0 [place] [address] 02050- 1109 Nov, Sarcoidosis of lung D86.0 [place] [address] 54230- 2218 Oct, Urge incontinence of urine N39.41 ; Sarcoidosis of lung D86.0 ; History of anal cancer Z85.048 ; Dermatitis L30.9 and BMI 50.0-59.9, adult Z68.43 [place] [address] 91036- 2252 Sep, [place] [address] 06711- 4437 Jul, Rash and nonspecific skin eruption R21 ; Skin change R23.9 ; Screening for breast cancer Z12.31 and BMI 50.0-59.9, adult Z68.43 [place] [address] 51357- 5848 20 Jul, 2017 History of anal cancer Z85.048 ; Encounter for immunization Z23 ; Sarcoidosis of lung D86.0 ; Essential hypertension I10 and BMI 50.0-59.9, adult Z68.43 [place] [address] 57489- 4415 Jul, [place] [address] 74529- 1387 Jun, [address] [address]98- 5319 14 Jun, 2017 Atypical chest pain R07.89 ; Body mass index (BMI) of 50- 59.9 in adult Z68.43 ; Morbid (severe) obesity due to excess calories E66.01 ; Elevated LFTs R79.89 ; Reflux esophagitis K21.0 and 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 [facility] [address] [place] [id number] [address] Jun, [facility] [address] [address] May, Acute exacerbation of chronic obstructive pulmonary disease (COPD) J44.1 [facility] [address] [address] 5[address] May, [facility] [id number] [place] [address] 31223- 7124 May, Chronic hepatitis C without hepatic coma B18.2 [place] [address] [id number] [place] [address] 41790- 3645 May, Chronic hepatitis C without hepatic coma B18.2 [facility] [address], [place] [address] 0[address] Apr, Chronic hepatitis C without hepatic coma B18.2 ; 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 pt has had a head injury in 2011 PLAN OF CARE Activity Details Follow Up July Reason: VITAL SIGNS Height 5'7" in 2018-03-15 Weight 325.2 lbs 2018-03-15 Temperature 98.8 degrees Fahrenheit 2018-03-15 Heart Rate 85 bpm 2018-03-15 Respiratory Rate 24 2018-03-15 Oximetry w/ oxygen:95 % 2018-03-15 BMI 50.93 kg/m2 2018-03-15 Blood pressure systolic 118 mmHg 2018-03-15 Blood pressure diastolic 74 mmHg 2018-03-15 MEDICATIONS Medication Instructions Dosage Frequency Start Date End Date Duration Status Oxygen 3LT Active Albuterol (2.5 MG/3ML) 0.083% Inhalation 4 times a day as needed for SOB 2 puffs Jan, Active Bactrim DS 800-160 MG Orally Twice a day 1 tablet 12h Feb,Mar 10 day(s) Active Escitalopram Oxalate 20 MG Orally Once a day 0.5 tablet 24h Active Hydrochlorothiazide 25 MG Orally Once a day 1 tablet in the morning 24h 90 days Active Depend Pant Extra Large - as directed Oct, Active Cyclobenzaprine HCl 5 mg Orally PRN 1 tablet as needed Active Fluticasone Propionate 50 MCG/ACT Nasally Once a day 1 spray in each nostril 24h Active Ibuprofen 800 MG Orally Three times a day 1 tablet with food or milk as needed 8h Active Lasix 20 mg Orally Once a day 1 tablet 24h 90 days Active Ranitidine HCl 150 MG Orally twice a day 1 tablet 12h Active Potassium Bicarb-Citric Acid 10 MEQ Orally Once a day 1 tablet 24h Active Albuterol Sulfate (2.5 MG/3ML) 0.083% Inhalation Three times a day 3 ml 8h 30 days Active RESULTS No Results PROCEDURES Procedure Date Ordered Result Body Site [facility] VISIT ESTABLISHED PATIENT Mar 15, 2018 INSTRUCTIONS MEDICATIONS ADMINISTERED No Known [...] History hepatitis C - successfully treated in [place] Medical History chronic obstructive pulmonary disease (COPD) Surgical History trachiotomy 2003 Surgical History [place] [facility] Hospitalization History Surgery(s)/Childbirth(s) Hospitalization History Chest pain - [facility] 06/19/17 Hospitalization History pneumonia, sepsis, hypoxia, uTI, sarcoidosis - [facility] 07/01/17
--- OUTSIDE RECORDS SUMMARY | 2018-11-25 22:18 | XMS REPORT ---
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 999324868 Problem Body mass index (BMI) of 50-59.9 in adult Z68.43 Active 783620595 Problem Morbid (severe) obesity due to excess calories E66.01 Active 564619652 Problem Chronic pain G89.29 Active 83431650 Problem Gait instability R26.81 Active 16966201 Problem History of anal cancer Z85.048 Active 431885785619455 Problem 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 Active 215943952769 Problem Urge incontinence of urine N39.41 Active 54305848 Problem Major depression, chronic F34.1 Active 804296406 ALLERGIES No Information ENCOUNTERS Encounter Location Date Diagnosis [place] [address] [place] [address] 33109- 4395 Apr, [facility] [address] [id number] [place] [address] 48094- 4134 Mar, [facility] [address] [id number] [place] [address] 88810- 2923 Mar, [facility] [address] 48303- 5135 Mar, Sarcoidosis of lung D86.0 ; 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 ; Gait instability R26.81 ; Other complicated headache syndrome G44.59 ; Chronic pain G89.29 and BMI 50.0-59.9, adult Z68.43 [facility] [address], [place] [address] Feb, Shortness of breath R06.02 ; Cough R05 and Bronchitis J40 [facility] [address] [place] [address] [id number] [place] [address] 45366- 7820 Feb, At risk for falls Z91.81 ; Gait instability R26.81 and Urge incontinence of urine N39.41 [place] [address] [address] [id number] [place] [address] 13918- 2527 Feb, [place] [address] [place] [address] [id number] [place] [address] 94209- 2511 Feb, [place] [address] [place] [address] [id number] [place] [address] 60187- 2906 Feb, [place] [address] [place] [address] [id number] [place] [address] 54221- 6629 Jan, [place] [address] [place] [address] [id number] [place] [address] 89331- 5492 Jan, Sarcoidosis of lung D86.0 ; 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 ; 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 and BMI 50.0-59.9, adult Z68.43 [facility] [address] [address] [id number] [place] [address] 01342- 9254 Jan, [place] [address] [place] [address] [id number] [place] [address] 14109- 0947 Jan, Sarcoidosis of lung D86.0 [place] [address] [place] [address] [id number] [place] [address] 98177- 1212 Nov, Medicare annual wellness visit, initial Z00.00 ; Morbid ( severe) obesity due to excess calories E66.01 ; Sarcoidosis of lung D86.0 ; 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 ; Essential hypertension I10 ; Reflux esophagitis K21.0 ; History of anal cancer Z85.048 ; 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 ; Major depression, chronic F34.1 ; Screening for osteoporosis Z13.820 and BMI 50.0-59.9, adult Z68.43 [place] [address] 79180- 4396 Nov, Sarcoidosis of lung D86.0 [place] [address] 76400- 1796 Nov, Sarcoidosis of lung D86.0 [place] [address] 71469- 7267 Oct, Urge incontinence of urine N39.41 ; Sarcoidosis of lung D86.0 ; History of anal cancer Z85.048 ; Dermatitis L30.9 and BMI 50.0-59.9, adult Z68.43 [place] [address] 09260- 6250 Sep, [place] [address] 75573- 6391 Jul, Rash and nonspecific skin eruption R21 ; Skin change R23.9 ; Screening for breast cancer Z12.31 and BMI 50.0-59.9, adult Z68.43 [place] [address] 83605- 8481 20 Jul, 2017 History of anal cancer Z85.048 ; Encounter for immunization Z23 ; Sarcoidosis of lung D86.0 ; Essential hypertension I10 and BMI 50.0-59.9, adult Z68.43 [place] [address] 93261- 1229 Jul, [place] [address] 42996- 8659 Jun, [address] 56[address]- 6850 14 Jun, 2017 Atypical chest pain R07.89 ; Body mass index (BMI) of 50- 59.9 in adult Z68.43 ; Morbid (severe) obesity due to excess calories E66.01 ; Elevated LFTs R79.89 ; Reflux esophagitis K21.0 and 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 [facility] [address] [place] [id number] [address] Jun, [facility] [address], [place] [address] May, Acute exacerbation of chronic obstructive pulmonary disease (COPD) J44.1 [facility] [address] [place] [address] 87596- 3765 May, [facility] [address] [place] [address] 14211- 5244 May, Chronic hepatitis C without hepatic coma B18.2 [place] [address] [place] [id number] [place] [address] 56520- 8305 May, Chronic hepatitis C without hepatic coma B18.2 [facility] [address], [place] [address]- 3864 Apr, Chronic hepatitis C without hepatic coma B18.2 ; 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 ; Sarcoidosis of lung D86.0 ; Screening for diabetes mellitus (DM) Z13.1 ; Screening for lipid disorders Z13.220 ; Essential hypertension I10 ; Body mass index (BMI) of 50-59.9 in adult Z68.43 ; Morbid (severe) obesity due to excess calories E66.01 and Nasal congestion R09.81 [facility] [address], [place] [address]- 9045 Apr, IMMUNIZATIONS No Known Immunizations SOCIAL HISTORY Never Assessed REASON FOR VISIT Signature on Order needed PLAN OF CARE VITAL SIGNS MEDICATIONS Unknown [...] History hepatitis C - successfully treated in [place] Medical History chronic obstructive pulmonary disease (COPD) Surgical History trachiotomy 2003 Surgical History [place] cath Hospitalization History Surgery(s)/Childbirth(s) Hospitalization History Chest pain - [facility] 06/19/17 Hospitalization History pneumonia, sepsis, hypoxia, uTI, sarcoidosis - [facility] 07/01/17
--- OUTSIDE RECORDS SUMMARY | 2018-11-25 22:18 | XMS REPORT ---
Author Author SHARIFA BULLOCK Organization [facility] Address [address] 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 045998733 Problem Body mass index (BMI) of 50-59.9 in adult Z68.43 Active 541158768 Problem Morbid (severe) obesity due to excess calories E66.01 Active 502067068 Problem Chronic pain G89.29 Active 80827120 Problem Gait instability R26.81 Active 97469376 Problem History of anal cancer Z85.048 Active 793282241162581 Problem 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 Active 165032603648 Problem Urge incontinence of urine N39.41 Active 97494504 Problem Major depression, chronic F34.1 Active 656444190 ALLERGIES No Information ENCOUNTERS Encounter Location Date Diagnosis [facility] [address] [place] [address] 73531- 1197 Mar, [facility] [address] [place] [id number] [place] [address] 80758- 1327 Mar, [facility] [address] [id number] [place] [address] 19944- 6288 Mar, Sarcoidosis of lung D86.0 ; 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 ; Gait instability R26.81 ; Other complicated headache syndrome G44.59 ; Chronic pain G89.29 and BMI 50.0-59.9, adult Z68.43 [facility] [address] [place] [address] 58905 -4067 Feb, Shortness of breath R06.02 ; Cough R05 and Bronchitis J40 [place] [address] [place] [address] [id number] [place] [address] 16862- 9637 Feb, At risk for falls Z91.81 ; Gait instability R26.81 and Urge incontinence of urine N39.41 [place] [address] [place] [id number] [place] [address] 04879- 9072 Feb, [place] [address] 27945- 5866 Feb, [place] [address] 98478- 6119 Feb, [place] [address] 79961- 6203 Jan, [place] [address] [place] [id number] [place] [address] 48157- 4222 Jan, Sarcoidosis of lung D86.0 ; 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 ; 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 and BMI 50.0-59.9, adult Z68.43 [place] [address] 90770- 4814 Jan, [place] [address] [place] [id number] [place] [address] 20946- 6199 Jan, Sarcoidosis of lung D86.0 [place] [address] [place] [id number] [place] [address] 62717- 5152 Nov, Medicare annual wellness visit, initial Z00.00 ; Morbid ( severe) obesity due to excess calories E66.01 ; Sarcoidosis of lung D86.0 ; 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9 and BMI 50.0-59.9, adult Z68.43 [place] [address] 09166- 7018 Sep, [place] [address] 04709- 9368 Jul, Rash and nonspecific skin eruption R21 ; Skin change R23.9 ; Screening for breast cancer Z12.31 and BMI 50.0-59.9, adult Z68.43 [place] [address] 77549- 8705 20 Jul, 2017 History of anal cancer Z85.048 ; Encounter for immunization Z23 ; Sarcoidosis of lung D86.0 ; Essential hypertension I10 and BMI 50.0-59.9, adult Z68.43 [place] [address] 95546- 6396 05 Jul, 2017 [place] [address] 73894- 1500 30 Jun, 2017 [place] [address] 93827- 2170 14 Jun, 2017 Atypical chest pain R07.89 ; Body mass index (BMI) of 50- 59.9 in adult Z68.43 ; Morbid (severe) obesity due to excess calories E66.01 ; Elevated LFTs R79.89 ; Reflux esophagitis K21.0 and 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 [place] [address] 87616- 0669 Jun, [facility] [address] [facility] [id number] [address] May, Acute exacerbation of chronic obstructive pulmonary disease (COPD) J44.1 [facility] [address] [place] [id number] [address]- 3976 May, [facility] [address] [place] [id number]68 May, Chronic hepatitis C without hepatic coma B18.2 [facility] [address] [place] [address] [id number]12 May, Chronic hepatitis C without hepatic coma B18.2 [facility] [address] [address] Apr, Chronic hepatitis C without hepatic coma B18.2 ; 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 ; Sarcoidosis of lung D86.0 ; Screening for diabetes mellitus (DM) Z13.1 ; Screening for lipid disorders Z13.220 ; Essential hypertension I10 ; Body mass index (BMI) of 50-59.9 in adult Z68.43 ; Morbid (severe) obesity due to excess calories E66.01 and Nasal congestion R09.81 [facility] [address] [place] [id number] [address]- 3997 Apr, IMMUNIZATIONS No Known Immunizations SOCIAL HISTORY Never Assessed REASON FOR VISIT CCM note re mobility PLAN OF CARE VITAL SIGNS MEDICATIONS Unknown [...] History hepatitis C - successfully treated in [place] Medical History chronic obstructive pulmonary disease (COPD) Surgical History trachiotomy 2003 Surgical History [place] a cath Hospitalization History Surgery(s)/Childbirth(s) Hospitalization History Chest pain - [facility] 06/19/17 Hospitalization History pneumonia, sepsis, hypoxia, uTI, sarcoidosis - [facility] 07/01/17
--- OUTSIDE RECORDS SUMMARY | 2018-11-25 22:18 | XMS REPORT ---
Author Author SHARIFA BULLOCK Organization [facility] Address [address] 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 086675935 Problem Body mass index (BMI) of 50-59.9 in adult Z68.43 Active 805048842 Problem Morbid (severe) obesity due to excess calories E66.01 Active 028357430 Problem Chronic pain G89.29 Active 10820175 Problem Gait instability R26.81 Active 27595537 Problem History of anal cancer Z85.048 Active 202664733975902 Problem 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 Active 157128238656 Problem Urge incontinence of urine N39.41 Active 09591558 Problem Major depression, chronic F34.1 Active 960151818 ALLERGIES No Information ENCOUNTERS Encounter Location Date Diagnosis [facility] [id number] [place] [address] 99850- 1320 May, [facility] [address] [place] [address] 65108- 2953 Apr, [facility] [address] [place] [address] 47260- 9716 Mar, [facility] [id number] [place] [address] 58772- 1955 Mar, [facility] [address] [place] [address] 24886- 0719 Mar, Sarcoidosis of lung D86.0 ; 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 ; Gait instability R26.81 ; Other complicated headache syndrome G44.59 ; Chronic pain G89.29 and BMI 50.0-59.9, adult Z68.43 [facility] [address] [address] Feb, Shortness of breath R06.02 ; Cough R05 and Bronchitis J40 [facility] [address] 31848- 6275 Feb, At risk for falls Z91.81 ; Gait instability R26.81 and Urge incontinence of urine N39.41 [place] [address] 77063- 9294 Feb, [place] [address] 20649- 7066 Feb, [facility] [address] 46627- 3284 Feb, [facility] [address] 64892- 3664 Jan, [facility] [id number] [place] [address] 06059- 6757 Jan, Sarcoidosis of lung D86.0 ; 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 ; 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 and BMI 50.0-59.9, adult Z68.43 [facility] [id number] [place] [address] 99876- 0850 Jan, [facility] [id number] [place] [address] 20866- 2694 Jan, Sarcoidosis of lung D86.0 [place] [address] 49341- 5044 Nov, Medicare annual wellness visit, initial Z00.00 ; Morbid ( severe) obesity due to excess calories E66.01 ; Sarcoidosis of lung D86.0 ; 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 ; Essential hypertension I10 ; Reflux esophagitis K21.0 ; History of anal cancer Z85.048 ; 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 ; Major depression, chronic F34.1 ; Screening for osteoporosis Z13.820 and BMI 50.0-59.9, adult Z68.[address] 57388- 9673 Nov, Sarcoidosis of lung D86.[address] 88114- 6848 Nov, Sarcoidosis of lung D86.[address] 39271- 7456 Oct, Urge incontinence of urine N39.41 ; Sarcoidosis of lung D86.0 ; History of anal cancer Z85.048 ; Dermatitis L30.9 and BMI 50.0-59.9, adult Z68.[address] 89076- 8112 Sep, [address] 36972- 1211 Jul, Rash and nonspecific skin eruption R21 ; Skin change R23.9 ; Screening for breast cancer Z12.31 and BMI 50.0-59.9, adult Z68.43 [place] [id number] [place] [address] 12321- 9843 Jul, History of anal cancer Z85.048 ; Encounter for immunization Z23 ; Sarcoidosis of lung D86.0 ; Essential hypertension I10 and BMI 50.0-59.9, adult Z68.43 [place] [id number] [place] [address] 72975- 1744 Jul, [address] 75255- 4495 Jun, [address] 85538- 7761 Jun, Atypical chest pain R07.89 ; Body mass index (BMI) of 50- 59.9 in adult Z68.43 ; Morbid (severe) obesity due to excess calories E66.01 ; Elevated LFTs R79.89 ; Reflux esophagitis K21.0 and 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 [facility] [address] [place] [address] 03265- 5689 Jun, [facility] [address] [place] [address] 33467 -7198 May, Acute exacerbation of chronic obstructive pulmonary disease (COPD) J44.1 [facility] [id number] [place] [address] 32973- 2396 May, [facility] [id number] [place] [address] 60684- 6444 May, Chronic hepatitis C without hepatic coma B18.2 [place] [id number] [place] [address] 31098- 0761 May, Chronic hepatitis C without hepatic coma B18.2 [facility] [id number] [place] [address] 54410- 6332 Apr, Chronic hepatitis C without hepatic coma B18.2 ; 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 ; Sarcoidosis of lung D86.0 ; Screening for diabetes mellitus (DM) Z13.1 ; Screening for lipid disorders Z13.220 ; Essential hypertension I10 ; Body mass index (BMI) of 50-59.9 in adult Z68.43 ; Morbid (severe) obesity due to excess calories E66.01 and Nasal congestion R09.81 [facility] [address] [place] [address] 95436- 1685 Apr, IMMUNIZATIONS No Known Immunizations SOCIAL HISTORY Never Assessed REASON FOR VISIT [facility] PLAN OF CARE VITAL SIGNS MEDICATIONS Unknown [...] History hepatitis C - successfully treated in [place] Medical History chronic obstructive pulmonary disease (COPD) Surgical History trachiotomy 2003 Surgical History [place] [facility] Hospitalization History Surgery(s)/Childbirth(s) Hospitalization History Chest pain - [facility] 06/19/17 Hospitalization History pneumonia, sepsis, hypoxia, uTI, sarcoidosis - [facility] 07/01/17
--- OUTSIDE RECORDS SUMMARY | 2018-11-25 22:18 | XMS REPORT ---
Author Author SHARIFA BULLOCK Organization [facility] Address [address] 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 479604321 Problem Body mass index (BMI) of 50-59.9 in adult Z68.43 Active 154824353 Problem Morbid (severe) obesity due to excess calories E66.01 Active 012352415 Problem Chronic pain G89.29 Active 47075035 Problem Gait instability R26.81 Active 49649342 Problem History of anal cancer Z85.048 Active 457183392181068 Problem 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 Active 460522300576 Problem Urge incontinence of urine N39.41 Active 61663017 Problem Major depression, chronic F34.1 Active 434545647 ALLERGIES No Information ENCOUNTERS Encounter Location Date Diagnosis [facility] [id number] [address] 0443 Jun, [facility] [address] [place] [address] 74314- 2822 Jun, Essential hypertension I10 [facility] [id number] [address]- 6311 May, [facility] [address] [place] [address] 30705- 6894 May, Essential hypertension I10 ; Sarcoidosis of lung D86.0 ; Major depression, chronic F34.1 ; Morbid (severe) obesity due to excess calories E66.01 ; Reflux esophagitis K21.0 and Left anterior shoulder pain M25.512 [facility] [id number] [place] [address] 93980- 6555 Apr, [facility] [address] 13977- 9284 Mar, [place] [address] 62640- 6880 Mar, [facility] [address] 36080- 5711 Mar, Sarcoidosis of lung D86.0 ; 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 ; Gait instability R26.81 ; Other complicated headache syndrome G44.59 ; Chronic pain G89.29 and BMI 50.0-59.9, adult Z68.43 [facility] [id number] [place] [address] 03913 -8219 Feb, Shortness of breath R06.02 ; Cough R05 and Bronchitis J40 [place] [address] 89621- 5277 Feb, At risk for falls Z91.81 ; Gait instability R26.81 and Urge incontinence of urine N39.41 [place] [address] 63498- 4664 Feb, [place] [address] 69628- 5429 Feb, [place] [address] 47927- 0200 Feb, [facility] [id number] [place] [address] 44955- 2752 Jan, [place] [address] 08748- 2735 Jan, Sarcoidosis of lung D86.0 ; 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 ; 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 and BMI 50.0-59.9, adult Z68.43 [facility] [address] [place] [address]- 7326 Jan, [place] [id number] [place] [address] 30938- 9857 Jan, Sarcoidosis of lung D86.0 [place] [id number] [place] [address] 01280- 5269 Nov, Medicare annual wellness visit, initial Z00.00 ; Morbid ( severe) obesity due to excess calories E66.01 ; Sarcoidosis of lung D86.0 ; 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 ; Essential hypertension I10 ; Reflux esophagitis K21.0 ; History of anal cancer Z85.048 ; 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 ; Major depression, chronic F34.1 ; Screening for osteoporosis Z13.820 and BMI 50.0-59.9, adult Z68.43 [place] [id number] [place] [address] 15632- 5446 Nov, Sarcoidosis of lung D86.0 [place] [id number] [place] [address] 11574- 4790 Nov, Sarcoidosis of lung D86.0 [place] [address] 30788- 5342 Oct, Urge incontinence of urine N39.41 ; Sarcoidosis of lung D86.0 ; History of anal cancer Z85.048 ; Dermatitis L30.9 and BMI 50.0-59.9, adult Z68.43 [place] [id number] [place] [address] 73455- 2911 Sep, [place] [address] [id number] [place] [address] 29436- 7506 Jul, Rash and nonspecific skin eruption R21 ; Skin change R23.9 ; Screening for breast cancer Z12.31 and BMI 50.0-59.9, adult Z68.43 [place] [id number] [place] [address] 37438- 4642 Jul, History of anal cancer Z85.048 ; Encounter for immunization Z23 ; Sarcoidosis of lung D86.0 ; Essential hypertension I10 and BMI 50.0-59.9, adult Z68.43 [facility] [id number] [place] [address] 78817- 3663 05 Jul, 2017 [facility] [id number] [place] [address] 47609- 3419 30 Jun, 2017 [place] [address] 18236- 8744 14 Jun, 2017 Atypical chest pain R07.89 ; Body mass index (BMI) of 50- 59.9 in adult Z68.43 ; Morbid (severe) obesity due to excess calories E66.01 ; Elevated LFTs R79.89 ; Reflux esophagitis K21.0 and 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 [place] [id number] [place] [address] 39756- 1553 Jun, [facility] [id number] [place] [address] 49696 -4153 May, Acute exacerbation of chronic obstructive pulmonary disease (COPD) J44.1 [place] [id number] [place] [address] 00191- 4194 May, [facility] [id number] [place] [address] 87147- 6844 May, Chronic hepatitis C without hepatic coma B18.2 [place] [id number] [place] [address] 21820- 5728 May, Chronic hepatitis C without hepatic coma B18.2 [facility] [id number] [place] [address] 95119- 3661 Apr, Chronic hepatitis C without hepatic coma B18.2 ; 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 [id number] [address]- 5775 Apr, IMMUNIZATIONS No Known Immunizations SOCIAL HISTORY Never Assessed REASON FOR VISIT [facility] call PLAN OF CARE VITAL SIGNS MEDICATIONS Unknown [...] History hepatitis C - successfully treated in [place] Medical History chronic obstructive pulmonary disease (COPD) Surgical History trachiotomy 2003 Surgical History [place] Hospitalization History Surgery(s)/Childbirth(s) Hospitalization History Chest pain - [facility] 06/19/17 Hospitalization History pneumonia, sepsis, hypoxia, uTI, sarcoidosis - [facility] 07/01/17
--- OUTSIDE RECORDS SUMMARY | 2018-11-25 22:18 | XMS REPORT ---
Author Author SHARIFA BULLOCK Organization [facility] Address [address] 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 322019185 Problem Body mass index (BMI) of 50-59.9 in adult Z68.43 Active 619736951 Problem Morbid (severe) obesity due to excess calories E66.01 Active 523819254 Problem Chronic pain G89.29 Active 84180758 Problem Gait instability R26.81 Active 68967226 Problem History of anal cancer Z85.048 Active 821060230207321 Problem 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 Active 054583989995 Problem Urge incontinence of urine N39.41 Active 33614971 Problem Major depression, chronic F34.1 Active 515015359 ALLERGIES No Information ENCOUNTERS Encounter Location Date Diagnosis [facility] [address] [place] [address] 84141- 7471 Apr, [facility] [id number] [place] [address] 23496- 8957 Mar, [facility] [id number] [place] [address] 92244- 8498 Mar, [facility] [address] 80092- 8012 Mar, Sarcoidosis of lung D86.0 ; 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 ; Gait instability R26.81 ; Other complicated headache syndrome G44.59 ; Chronic pain G89.29 and BMI 50.0-59.9, adult Z68.43 [facility] [address] [place] [address] 14978 -2179 Feb, Shortness of breath R06.02 ; Cough R05 and Bronchitis J40 [facility] [address] [place] [address] [id number] [place] [address] 97040- 2617 Feb, At risk for falls Z91.81 ; Gait instability R26.81 and Urge incontinence of urine N39.41 [place] [id number] [place] [address] 39724- 8939 Feb, [place] [address] [id number] [place] [address] 92461- 3637 Feb, [place] [address] [id number] [place] [address] 12774- 9756 Feb, [place] [id number] [place] [address] 13956- 6288 Jan, [place] [id number] [place] [address] 49455- 0825 Jan, Sarcoidosis of lung D86.0 ; 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 ; 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 and BMI 50.0-59.9, adult Z68.43 [place] [id number] [place] [address] 13208- 4002 Jan, [place] [address] [id number] [place] [address] 43418- 7432 Jan, Sarcoidosis of lung D86.0 [place] [id number] [place] [address] 76641- 2504 Nov, Medicare annual wellness visit, initial Z00.00 ; Morbid ( severe) obesity due to excess calories E66.01 ; Sarcoidosis of lung D86.0 ; 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 ; Essential hypertension I10 ; Reflux esophagitis K21.0 ; History of anal cancer Z85.048 ; 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 ; Major depression, chronic F34.1 ; Screening for osteoporosis Z13.820 and BMI 50.0-59.9, adult Z68.43 [place] [address] 36457- 7217 Nov, Sarcoidosis of lung D86.0 [place] [address] 85512- 6878 Nov, Sarcoidosis of lung D86.0 [place] [address] 81232- 3804 Oct, Urge incontinence of urine N39.41 ; Sarcoidosis of lung D86.0 ; History of anal cancer Z85.048 ; Dermatitis L30.9 and BMI 50.0-59.9, adult Z68.43 [place] [address] 20213- 9025 Sep, [place] [address] 20375- 9788 Jul, Rash and nonspecific skin eruption R21 ; Skin change R23.9 ; Screening for breast cancer Z12.31 and BMI 50.0-59.9, adult Z68.43 [place] [address] 97337- 5699 20 Jul, 2017 History of anal cancer Z85.048 ; Encounter for immunization Z23 ; Sarcoidosis of lung D86.0 ; Essential hypertension I10 and BMI 50.0-59.9, adult Z68.43 [place] [address] 33822- 0910 Jul, [place] [address] 93920- 7292 Jun, [address] 28699- 2279 14 Jun, 2017 Atypical chest pain R07.89 ; Body mass index (BMI) of 50- 59.9 in adult Z68.43 ; Morbid (severe) obesity due to excess calories E66.01 ; Elevated LFTs R79.89 ; Reflux esophagitis K21.0 and 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 [facility] [id number], [place] [address]- 3577 Jun, [facility] [address] [place] [address] -7269 May, Acute exacerbation of chronic obstructive pulmonary disease (COPD) J44.1 [facility] [address] [place] [address] 71026- 6332 May, [facility] [address] [place] [address] 53268- 8241 May, Chronic hepatitis C without hepatic coma B18.2 [place] [id number] [place] [address] 90013- 9966 May, Chronic hepatitis C without hepatic coma B18.2 [facility] [address] [place] [address] 54578- 8895 Apr, Chronic hepatitis C without hepatic coma B18.2 ; 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 ; Sarcoidosis of lung D86.0 ; Screening for diabetes mellitus (DM) Z13.1 ; Screening for lipid disorders Z13.220 ; Essential hypertension I10 ; Body mass index (BMI) of 50-59.9 in adult Z68.43 ; Morbid (severe) obesity due to excess calories E66.01 and Nasal congestion R09.81 [facility] [address] [address]- 4177 Apr, IMMUNIZATIONS No Known Immunizations SOCIAL HISTORY Never Assessed REASON FOR VISIT [facility] PLAN OF CARE VITAL SIGNS MEDICATIONS Unknown [...] History hepatitis C - successfully treated in [place] Medical History chronic obstructive pulmonary disease (COPD) Surgical History trachiotomy 2003 Surgical History [place] Hospitalization History Surgery(s)/Childbirth(s) Hospitalization History Chest pain - [facility] 06/19/17 Hospitalization History pneumonia, sepsis, hypoxia, uTI, sarcoidosis - [facility] 07/01/17
--- OUTSIDE RECORDS SUMMARY | 2018-11-25 22:19 | XMS REPORT ---
Author Author SHARIFA BULLOCK Organization [facility] Address [address] 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 486624008 Problem Body mass index (BMI) of 50-59.9 in adult Z68.43 Active 872120293 Problem Morbid (severe) obesity due to excess calories E66.01 Active 305212170 Problem Chronic pain G89.29 Active 79122213 Problem Gait instability R26.81 Active 38233547 Problem History of anal cancer Z85.048 Active 745006159340787 Problem 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 Active 200081725271 Problem Urge incontinence of urine N39.41 Active 30117676 Problem Major depression, chronic F34.1 Active [id number] ALLERGIES No Information ENCOUNTERS Encounter Location Date Diagnosis [facility] [address] [place] [address] 07653- 3146 Mar, [facility] [id number] [place] [address] 00584- 3943 Mar, [facility] [id number] [place] [address] 16357- 3664 Mar, Sarcoidosis of lung D86.0 ; 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 ; Gait instability R26.81 ; Other complicated headache syndrome G44.59 ; Chronic pain G89.29 and BMI 50.0-59.9, adult Z68.43 [facility] [address] [place] [address]290 -0055 Feb, Shortness of breath R06.02 ; Cough R05 and Bronchitis J40 [place] [id number] [place] [address] 28905- 9954 Feb, At risk for falls Z91.81 ; Gait instability R26.81 and Urge incontinence of urine N39.41 [place] [id number] [place] [address] 22509- 6823 Feb, [place] [address] [address]- 7487 Feb, [place] [address] 0[address]46- 7045 Feb, [place] [address] 80607- 5613 Jan, [place] [id number] [place] [address] 75096- 5026 Jan, Sarcoidosis of lung D86.0 ; 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 ; 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 and BMI 50.0-59.9, adult Z68.43 [place] [address] [address]32- 3920 Jan, [place] [id number] [place] [address] 77736- 5269 Jan, Sarcoidosis of lung D86.0 [place] [id number] [place] [address] 21286- 1480 Nov, Medicare annual wellness visit, initial Z00.00 ; Morbid ( severe) obesity due to excess calories E66.01 ; Sarcoidosis of lung D86.0 ; 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 ; Essential hypertension I10 ; Reflux esophagitis K21.0 ; History of anal cancer Z85.048 ; 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 ; Major depression, chronic F34.1 ; Screening for osteoporosis Z13.820 and BMI 50.0-59.9, adult Z68.43 [place] [id number] [place] [address] 35705- 0192 Nov, Sarcoidosis of lung D86.0 [place] [address] 18928- 9415 Nov, Sarcoidosis of lung D86.0 [place] [address] 95416- 8810 Oct, Urge incontinence of urine N39.41 ; Sarcoidosis of lung D86.0 ; History of anal cancer Z85.048 ; Dermatitis L30.9 and BMI 50.0-59.9, adult Z68.43 [place] [address] 90559- 7151 Sep, [place] [address] 50520- 7963 Jul, Rash and nonspecific skin eruption R21 ; Skin change R23.9 ; Screening for breast cancer Z12.31 and BMI 50.0-59.9, adult Z68.43 [place] [address] 02003- 4269 20 Jul, 2017 History of anal cancer Z85.048 ; Encounter for immunization Z23 ; Sarcoidosis of lung D86.0 ; Essential hypertension I10 and BMI 50.0-59.9, adult Z68.43 [place] [address] 16675- 8617 05 Jul, 2017 [place] [address] 55482- 3232 30 Jun, 2017 [place] [address] 58950- 5743 14 Jun, 2017 Atypical chest pain R07.89 ; Body mass index (BMI) of 50- 59.9 in adult Z68.43 ; Morbid (severe) obesity due to excess calories E66.01 ; Elevated LFTs R79.89 ; Reflux esophagitis K21.0 and 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 [place] [address] 76124- 4678 Jun, [facility] [address] [facility] [id number] [address] May, Acute exacerbation of chronic obstructive pulmonary disease (COPD) J44.1 [facility] [id number] [address] May, [facility] [id number] [address] 5[address] May, Chronic hepatitis C without hepatic coma B18.2 [facility] [id number] May, Chronic hepatitis C without hepatic coma B18.2 [facility] [address] [place] [address] Apr, Chronic hepatitis C without hepatic coma B18.2 ; 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 ; Sarcoidosis of lung D86.0 ; Screening for diabetes mellitus (DM) Z13.1 ; Screening for lipid disorders Z13.220 ; Essential hypertension I10 ; Body mass index (BMI) of 50-59.9 in adult Z68.43 ; Morbid (severe) obesity due to excess calories E66.01 and Nasal congestion R09.81 [facility] [address] [facility] [id number] [address] Apr, IMMUNIZATIONS No Known Immunizations SOCIAL HISTORY Never Assessed REASON FOR VISIT Eye Exam PLAN OF CARE VITAL SIGNS MEDICATIONS Unknown [...] History hepatitis C - successfully treated in [place] Medical History chronic obstructive pulmonary disease (COPD) Surgical History trachiotomy 2003 Surgical History [place] [facility] Hospitalization History Surgery(s)/Childbirth(s) Hospitalization History Chest pain - [facility] 06/19/17 Hospitalization History pneumonia, sepsis, hypoxia, uTI, sarcoidosis - [facility] 07/01/17
--- OUTSIDE RECORDS SUMMARY | 2018-11-25 22:19 | XMS REPORT ---
Author Author SHARIFA BULLOCK Organization [facility] Address [address] 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 416614940 Problem Body mass index (BMI) of 50-59.9 in adult Z68.43 Active 183060055 Problem Morbid (severe) obesity due to excess calories E66.01 Active 908125575 Problem Chronic pain G89.29 Active 82951135 Problem Gait instability R26.81 Active 62689572 Problem History of anal cancer Z85.048 Active 868225739164115 Problem 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 Active 723346798361 Problem Urge incontinence of urine N39.41 Active 95469573 Problem Major depression, chronic F34.1 Active [id number] ALLERGIES No Information ENCOUNTERS Encounter Location Date Diagnosis [facility] [address] [place] [address] 76076- 2326 Mar, [facility] [id number] [place] [address] 59432- 3025 Mar, [facility] [id number] [place] [address] 22523- 5275 Mar, Sarcoidosis of lung D86.0 ; 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 ; Gait instability R26.81 ; Other complicated headache syndrome G44.59 ; Chronic pain G89.29 and BMI 50.0-59.9, adult Z68.43 [facility] [address] [place] [address] 69638 -1243 Feb, Shortness of breath R06.02 ; Cough R05 and Bronchitis J40 [place] [id number] [place] [address] 29017- 1439 Feb, At risk for falls Z91.81 ; Gait instability R26.81 and Urge incontinence of urine N39.41 [place] [id number] [place] [address] 88750- 6444 Feb, [place] [address] 24852- 3502 Feb, [place] [address] 9[address]30- 2329 Feb, [place] [address] 64922- 2647 Jan, [place] [id number] [place] [address] 30197- 4085 Jan, Sarcoidosis of lung D86.0 ; 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 ; 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 and BMI 50.0-59.9, adult Z68.43 [place] [address] 41466- 9719 Jan, [place] [id number] [place] [address] 80387- 2625 Jan, Sarcoidosis of lung D86.0 [place] [id number] [place] [address] 29876- 4169 Nov, Medicare annual wellness visit, initial Z00.00 ; Morbid ( severe) obesity due to excess calories E66.01 ; Sarcoidosis of lung D86.0 ; 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 ; Essential hypertension I10 ; Reflux esophagitis K21.0 ; History of anal cancer Z85.048 ; 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 ; Major depression, chronic F34.1 ; Screening for osteoporosis Z13.820 and BMI 50.0-59.9, adult Z68.43 [place] [id number] [place] [address] 95303- 6112 Nov, Sarcoidosis of lung D86.0 [place] [address] 78512- 3991 Nov, Sarcoidosis of lung D86.0 [place] [address] 19759- 0014 Oct, Urge incontinence of urine N39.41 ; Sarcoidosis of lung D86.0 ; History of anal cancer Z85.048 ; Dermatitis L30.9 and BMI 50.0-59.9, adult Z68.43 [place] [address] 11919- 2980 Sep, [place] [address] 13721- 4399 Jul, Rash and nonspecific skin eruption R21 ; Skin change R23.9 ; Screening for breast cancer Z12.31 and BMI 50.0-59.9, adult Z68.43 [place] [address] 09552- 1396 20 Jul, 2017 History of anal cancer Z85.048 ; Encounter for immunization Z23 ; Sarcoidosis of lung D86.0 ; Essential hypertension I10 and BMI 50.0-59.9, adult Z68.43 [place] [address] 31505- 1027 05 Jul, 2017 [place] [address] 35861- 3881 30 Jun, 2017 [place] [address] 39917- 5975 14 Jun, 2017 Atypical chest pain R07.89 ; Body mass index (BMI) of 50- 59.9 in adult Z68.43 ; Morbid (severe) obesity due to excess calories E66.01 ; Elevated LFTs R79.89 ; Reflux esophagitis K21.0 and 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 [place] [address] 27448- 2892 Jun, [facility] [address] [facility] [id number] [address] May, Acute exacerbation of chronic obstructive pulmonary disease (COPD) J44.1 [facility] [id number] [address]- 8[address] May, [facility] [id number] [address]- 3314 May, Chronic hepatitis C without hepatic coma B18.2 [facility] [address] [address] May, Chronic hepatitis C without hepatic coma B18.2 [facility] [address] [place] [address] 82005- 0798 Apr, Chronic hepatitis C without hepatic coma B18.2 ; 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 ; Sarcoidosis of lung D86.0 ; Screening for diabetes mellitus (DM) Z13.1 ; Screening for lipid disorders Z13.220 ; Essential hypertension I10 ; Body mass index (BMI) of 50-59.9 in adult Z68.43 ; Morbid (severe) obesity due to excess calories E66.01 and Nasal congestion R09.81 [facility] [id number] [address]- [address] Apr, IMMUNIZATIONS No Known Immunizations SOCIAL HISTORY Never Assessed REASON FOR VISIT CCM call/acute appt PLAN OF CARE VITAL SIGNS MEDICATIONS Medication Instructions Dosage Frequency Start Date End Date Duration Status Incontinence Brief Large - as directed 8h Mar, 90 days Active Roller Walker - With seat as directed Mar, Active RESULTS No Results PROCEDURES No Known [...] History Surgery(s)/Childbirth(s) Hospitalization History Chest pain - [facility] 06/19/17 Hospitalization History pneumonia, sepsis, hypoxia, uTI, sarcoidosis - [facility] 07/01/17
--- OUTSIDE RECORDS SUMMARY | 2018-11-25 22:19 | XMS REPORT ---
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 323689879 Problem Body mass index (BMI) of 50-59.9 in adult Z68.43 Active 184906991 Problem Morbid (severe) obesity due to excess calories E66.01 Active 347007718 Problem Chronic pain G89.29 Active 47466418 Problem Gait instability R26.81 Active 33669347 Problem History of anal cancer Z85.048 Active 963902497763747 Problem 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 Active 774926476603 Problem Urge incontinence of urine N39.41 Active 79713586 Problem Major depression, chronic F34.1 Active 174414600 ALLERGIES No Known Allergies ENCOUNTERS Encounter Location Date Diagnosis [facility] [address] [address] Mar, [facility] [id number] [place] [address] 05070- 0843 Mar, [facility] [address] [place] [address] 58113- 2842 Mar, Sarcoidosis of lung D86.0 ; 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 [address] [place] [address] 75809 -5482 Feb, Shortness of breath R06.02 ; Cough R05 and Bronchitis J40 [place] [id number] [place] [address] 87275- 5830 Feb, At risk for falls Z91.81 ; Gait instability R26.81 and Urge incontinence of urine N39.41 [place] [address] 56282- 8801 Feb, [place] [address] 40466- 6199 Feb, [place] [address] 99091- 7080 Feb, [place] [address] 53386- 9635 Jan, [place] [address] 31915- 8529 Jan, Sarcoidosis of lung D86.0 ; 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 ; 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 and BMI 50.0-59.9, adult Z68.43 [place] [address] 62816- 6151 Jan, [place] [id number] [place] [address] 84220- 9921 Jan, Sarcoidosis of lung D86.0 [place] [id number] [place] [address] 81988- 6002 Nov, Medicare annual wellness visit, initial Z00.00 ; Morbid ( severe) obesity due to excess calories E66.01 ; Sarcoidosis of lung D86.0 ; 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 ; Essential hypertension I10 ; Reflux esophagitis K21.0 ; History of anal cancer Z85.048 ; 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 ; Major depression, chronic F34.1 ; Screening for osteoporosis Z13.820 and BMI 50.0-59.9, adult Z68.43 [place] [id number] [place] [address] 63983- 1507 Nov, Sarcoidosis of lung D86.0 [place] [id number] [place] [address] 99724- 6816 Nov, Sarcoidosis of lung D86.0 [place] [id number] [place] [address] 80819- 6420 Oct, Urge incontinence of urine N39.41 ; Sarcoidosis of lung D86.0 ; History of anal cancer Z85.048 ; Dermatitis L30.9 and BMI 50.0-59.9, adult Z68.43 [place] [id number] [place] [address] 89453- 7039 Sep, [place] [address] 38275- 7593 Jul, Rash and nonspecific skin eruption R21 ; Skin change R23.9 ; Screening for breast cancer Z12.31 and BMI 50.0-59.9, adult Z68.43 [place] [id number] [place] [address] 69958- 2408 20 Jul, 2017 History of anal cancer Z85.048 ; Encounter for immunization Z23 ; Sarcoidosis of lung D86.0 ; Essential hypertension I10 and BMI 50.0-59.9, adult Z68.43 [place] [id number] [place] [address] 59805- 8494 05 Jul, 2017 [place] [id number] [place] [address] 84715- 0486 30 Jun, 2017 [place] [id number] [place] [address] 00743- 6253 14 Jun, 2017 Atypical chest pain R07.89 ; Body mass index (BMI) of 50- 59.9 in adult Z68.43 ; Morbid (severe) obesity due to excess calories E66.01 ; Elevated LFTs R79.89 ; Reflux esophagitis K21.0 and 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 [place] [id number] [place] [address] 92333- 5234 Jun, [facility] [id number] [address] May, Acute exacerbation of chronic obstructive pulmonary disease (COPD) J44.1 [facility] [address] [address]- 3687 May, [facility] [id number] [place] [address] 92949- 4827 May, Chronic hepatitis C without hepatic coma B18.2 [facility] [address] [place] [address] 15148- 4689 May, Chronic hepatitis C without hepatic coma B18.2 [facility] [address] [address]- 6942 Apr, Chronic hepatitis C without hepatic coma B18.2 ; 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 ; Sarcoidosis of lung D86.0 ; Screening for diabetes mellitus (DM) Z13.1 ; Screening for lipid disorders Z13.220 ; Essential hypertension I10 ; Body mass index (BMI) of 50-59.9 in adult Z68.43 ; Morbid (severe) obesity due to excess calories E66.01 and Nasal congestion R09.81 [facility] [address] [address]- 5762 Apr, IMMUNIZATIONS No Known Immunizations SOCIAL HISTORY Never Assessed REASON FOR VISIT coug/congestion and green phlegm coming from trach x 4-5 days.--FROYLAN Zhou PLAN OF CARE Activity Details Follow Up prn Reason: VITAL SIGNS Height 5'7" in 2018-03-07 Weight 319.2 lbs 2018-03-07 Temperature 99.0 degrees Fahrenheit 2018-03-07 Heart Rate 84 bpm 2018-03-07 Respiratory Rate 24 2018-03-07 BMI 49.99 kg/m2 2018-03-07 Blood pressure systolic 98 mmHg 2018-03-07 Blood pressure diastolic 64 mmHg 2018-03-07 MEDICATIONS Medication Instructions Dosage Frequency Start Date End Date Duration Status Depend Pant Extra Large - as directed Oct, Active Bactrim DS 800-160 MG Orally Twice a day 1 tablet 12h Feb,Mar 10 day(s) Active Escitalopram Oxalate 20 MG Orally Once a day 0.5 tablet 24h Active Ibuprofen 800 MG Orally Three times a day 1 tablet with food or milk as needed 8h Active Cetirizine HCl 10 mg Orally Once a day 1 tablet 24h Jul, Not -Taking PredniSONE 20 mg Orally twice a day 1 tablet 12h Feb, Mar, 05 days Active Potassium Bicarb-Citric Acid 10 MEQ Orally Once a day 1 tablet 24h Active Albuterol (2.5 MG/3ML) 0.083% Inhalation 4 times a day as needed for SOB 2 puffs Jan, Active Lasix 20 mg Orally Once a day 1 tablet 24h 90 days Active Albuterol Sulfate (2.5 MG/3ML) 0.083% Inhalation Three times a day 3 ml 8h 30 days Not-Taking Cyclobenzaprine HCl 5 mg Orally PRN 1 tablet as needed Active Oxygen 3LT Active Hydrochlorothiazide 25 MG Orally Once a day 1 tablet in the morning 24h 90 days Active Ranitidine HCl 150 MG Orally twice a day 1 tablet 12h Active Fluticasone Propionate 50 MCG/ACT Nasally Once a day 1 spray in each nostril 24h Active RESULTS Name Result Date Reference Range Xray : Chest 2 View (IN HOUSE) 2018-03-07 PROCEDURES Procedure Date Ordered Result Body Site X-RAY EXAM CHEST 2 VIEWS March 07, 2018 [facility] VISIT ESTABLISHED PATIENT March 07, 2018 INSTRUCTIONS MEDICATIONS ADMINISTERED No Known Medications [...] History pneumonia, sepsis, hypoxia, uTI, sarcoidosis - [facility] 07/01/17
--- OUTSIDE RECORDS SUMMARY | 2018-11-25 22:19 | XMS REPORT ---
Author Author SHARIFA BULLOCK Organization [facility] Address [address] 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 408585050 Problem Body mass index (BMI) of 50-59.9 in adult Z68.43 Active 598734179 Problem Morbid (severe) obesity due to excess calories E66.01 Active 295934928 Problem Chronic pain G89.29 Active 88462951 Problem Gait instability R26.81 Active 22521545 Problem History of anal cancer Z85.048 Active 332432769224558 Problem 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 Active 317510431743 Problem Urge incontinence of urine N39.41 Active 48640887 Problem Major depression, chronic F34.1 Active 271004081 ALLERGIES No Information ENCOUNTERS Encounter Location Date Diagnosis [facility] [address] [place] [address] 63810- 1100 Mar, [facility] [id number] [place] [address] 58840- 3041 Mar, [facility] [id number] [place] [address] 85162- 0716 Mar, Sarcoidosis of lung D86.0 ; 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 ; Gait instability R26.81 ; Other complicated headache syndrome G44.59 ; Chronic pain G89.29 and BMI 50.0-59.9, adult Z68.43 [facility] [address] [place] [address] 09079 -9240 Feb, Shortness of breath R06.02 ; Cough R05 and Bronchitis J40 [place] [id number] [place] [address] 58104- 9640 Feb, At risk for falls Z91.81 ; Gait instability R26.81 and Urge incontinence of urine N39.41 [place] [id number] [place] [address] 91737- 0276 Feb, [place] [address] 75198- 5311 Feb, [place] [address] 22592- 3085 Feb, [place] [address] 13194- 4830 Jan, [place] [id number] [place] [address] 49327- 3440 Jan, Sarcoidosis of lung D86.0 ; 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 ; 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 and BMI 50.0-59.9, adult Z68.43 [place] [address] 84228- 6569 Jan, [place] [id number] [place] [address] 30219- 5367 Jan, Sarcoidosis of lung D86.0 [facility] [id number] [place] [address] 50431- 5466 Nov, Medicare annual wellness visit, initial Z00.00 ; Morbid ( severe) obesity due to excess calories E66.01 ; Sarcoidosis of lung D86.0 ; 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 ; Essential hypertension I10 ; Reflux esophagitis K21.0 ; History of anal cancer Z85.048 ; 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 ; Major depression, chronic F34.1 ; Screening for osteoporosis Z13.820 and BMI 50.0-59.9, adult Z68.43 [place] [id number] [place] [address] 63429- 5502 Nov, Sarcoidosis of lung D86.0 [place] [address] 21762- 3905 Nov, Sarcoidosis of lung D86.0 [place] [address] 93753- 9840 Oct, Urge incontinence of urine N39.41 ; Sarcoidosis of lung D86.0 ; History of anal cancer Z85.048 ; Dermatitis L30.9 and BMI 50.0-59.9, adult Z68.43 [place] [address] 80482- 9069 Sep, [place] [address] 80419- 0004 Jul, Rash and nonspecific skin eruption R21 ; Skin change R23.9 ; Screening for breast cancer Z12.31 and BMI 50.0-59.9, adult Z68.43 [place] [address] 14925- 9410 20 Jul, 2017 History of anal cancer Z85.048 ; Encounter for immunization Z23 ; Sarcoidosis of lung D86.0 ; Essential hypertension I10 and BMI 50.0-59.9, adult Z68.43 [place] [address] 49273- 4349 05 Jul, 2017 [place] [address] 70265- 3075 30 Jun, 2017 [place] [address] 40778- 9802 14 Jun, 2017 Atypical chest pain R07.89 ; Body mass index (BMI) of 50- 59.9 in adult Z68.43 ; Morbid (severe) obesity due to excess calories E66.01 ; Elevated LFTs R79.89 ; Reflux esophagitis K21.0 and 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 [place] [address] 97360- 7755 Jun, [facility] [address] [facility] [id number] [address] May, Acute exacerbation of chronic obstructive pulmonary disease (COPD) J44.1 [facility] [id number] [address] May, [facility] [id number] May, Chronic hepatitis C without hepatic coma B18.2 [facility] [id number] [address] May, Chronic hepatitis C without hepatic coma B18.2 [facility] [address] [place] [address] 010561- 4415 Apr, Chronic hepatitis C without hepatic coma B18.2 ; 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 ; Sarcoidosis of lung D86.0 ; Screening for diabetes mellitus (DM) Z13.1 ; Screening for lipid disorders Z13.220 ; Essential hypertension I10 ; Body mass index (BMI) of 50-59.9 in adult Z68.43 ; Morbid (severe) obesity due to excess calories E66.01 and Nasal congestion R09.81 [facility] [id number], [place] [address] Apr, IMMUNIZATIONS No Known Immunizations SOCIAL HISTORY Never Assessed REASON FOR VISIT CCM note re scooter/pulm rehab PLAN OF CARE VITAL SIGNS MEDICATIONS Unknown [...] History Surgery(s)/Childbirth(s) Hospitalization History Chest pain - [facility] 06/19/17 Hospitalization History pneumonia, sepsis, hypoxia, uTI, sarcoidosis - [facility] 07/01/17
--- OUTSIDE RECORDS SUMMARY | 2018-11-25 22:19 | XMS REPORT ---
Author Author SHARIFA BULLOCK Organization [facility] Address [address] 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 826691487 Problem Body mass index (BMI) of 50-59.9 in adult Z68.43 Active 646696984 Problem Morbid (severe) obesity due to excess calories E66.01 Active 577250773 Problem Chronic pain G89.29 Active 47891319 Problem Gait instability R26.81 Active 92033952 Problem History of anal cancer Z85.048 Active 805545982432814 Problem 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 Active 599600371070 Problem Urge incontinence of urine N39.41 Active 17149303 Problem Major depression, chronic F34.1 Active 335164116 ALLERGIES No Known Allergies ENCOUNTERS Encounter Location Date Diagnosis [facility] [id number] [place] [address] 53315- 9449 Mar, [facility] [address] [place] [address] 45819- 8704 Mar, [facility] [id number] [place] [address] 29292- 0040 Mar, Sarcoidosis of lung D86.0 ; 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 ; Gait instability R26.81 ; Other complicated headache syndrome G44.59 ; Chronic pain G89.29 and BMI 50.0-59.9, adult Z68.43 [facility] [address] [place] [address] 05414 -5108 Feb, Shortness of breath R06.02 ; Cough R05 and Bronchitis J40 [place] [id number] [place] [address] 14627- 0732 Feb, At risk for falls Z91.81 ; Gait instability R26.81 and Urge incontinence of urine N39.41 [place] [id number] [place] [address] 16113- 8245 Feb, [place] [address] 53147- 6362 Feb, [place] [address] 09106- 4671 Feb, [place] [address] 95399- 8681 Jan, [place] [id number] [place] [address] 46154- 4436 Jan, Sarcoidosis of lung D86.0 ; 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 ; 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 and BMI 50.0-59.9, adult Z68.[address] 55817- 3856 Jan, [place] [id number] [place] [address] 40952- 3938 Jan, Sarcoidosis of lung D86.0 [place] [id number] [place] [address] 67627- 6311 Nov, Medicare annual wellness visit, initial Z00.00 ; Morbid ( severe) obesity due to excess calories E66.01 ; Sarcoidosis of lung D86.0 ; 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 ; Essential hypertension I10 ; Reflux esophagitis K21.0 ; History of anal cancer Z85.048 ; 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 ; Major depression, chronic F34.1 ; Screening for osteoporosis Z13.820 and BMI 50.0-59.9, adult Z68.[address] 38323- 9414 Nov, Sarcoidosis of lung D86.0 [place] [address] 84406- 1139 Nov, Sarcoidosis of lung D86.0 [place] [address] 16634- 7569 Oct, Urge incontinence of urine N39.41 ; Sarcoidosis of lung D86.0 ; History of anal cancer Z85.048 ; Dermatitis L30.9 and BMI 50.0-59.9, adult Z68.43 [place] [address] 04859- 3602 Sep, [place] [address] 75413- 2505 Jul, Rash and nonspecific skin eruption R21 ; Skin change R23.9 ; Screening for breast cancer Z12.31 and BMI 50.0-59.9, adult Z68.43 [place] [address] 43576- 9728 20 Jul, 2017 History of anal cancer Z85.048 ; Encounter for immunization Z23 ; Sarcoidosis of lung D86.0 ; Essential hypertension I10 and BMI 50.0-59.9, adult Z68.43 [place] [address] 33809- 5280 05 Jul, 2017 [place] [address] 79043- 1595 30 Jun, 2017 [place] [address] 25213- 1360 14 Jun, 2017 Atypical chest pain R07.89 ; Body mass index (BMI) of 50- 59.9 in adult Z68.43 ; Morbid (severe) obesity due to excess calories E66.01 ; Elevated LFTs R79.89 ; Reflux esophagitis K21.0 and 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 [place] [address] 71782- 3222 Jun, [facility] [address] [facility] [id number] [address] May, Acute exacerbation of chronic obstructive pulmonary disease (COPD) J44.1 [facility] [address] [address] May, [facility] [address] [place] [address] 86196- 5027 May, Chronic hepatitis C without hepatic coma B18.2 [facility] [address] [place] [address] 57977- 5074 May, Chronic hepatitis C without hepatic coma B18.2 [facility] [address] [place] [address] 32438- 7952 Apr, Chronic hepatitis C without hepatic coma B18.2 ; 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 ; Sarcoidosis of lung D86.0 ; Screening for diabetes mellitus (DM) Z13.1 ; Screening for lipid disorders Z13.220 ; Essential hypertension I10 ; Body mass index (BMI) of 50-59.9 in adult Z68.43 ; Morbid (severe) obesity due to excess calories E66.01 and Nasal congestion R09.81 [facility] [address] [address] Apr, IMMUNIZATIONS No Known Immunizations SOCIAL HISTORY Never Assessed REASON FOR VISIT Sarcoidosis JASON-FROYLAN, PT is requesting paperwork for the equipment she is currently using for her [employer], PT is requesting a scooter PLAN OF CARE Activity Details Follow Up 3 Months Reason:sarcoidosis VITAL SIGNS Height 5'7" in 2018-01-23 Weight 328 lbs 2018-01-23 Temperature 97.4 degrees Fahrenheit 2018-01-23 Heart Rate 94 bpm 2018-01-23 Respiratory Rate 22 2018-01-23 BMI 51.37 kg/m2 2018-01-23 Blood pressure systolic 118 mmHg 2018-01-23 Blood pressure diastolic 74 mmHg 2018-01-23 MEDICATIONS Medication Instructions Dosage Frequency Start Date End Date Duration Status Oxygen 3LT Active Potassium Bicarb-Citric Acid 10 MEQ Orally Once a day 1 tablet 24h Active Fluticasone Propionate 50 MCG/ACT Nasally Once a day 1 spray in each nostril 24h Active Ibuprofen 800 MG Orally Three times a day 1 tablet with food or milk as needed 8h Active Cyclobenzaprine HCl 5 mg Orally PRN 1 tablet as needed Active Albuterol Sulfate (2.5 MG/3ML) 0.083% Inhalation Three times a day 3 ml 8h 30 days Active Lasix 20 mg Orally Once a day 1 tablet 24h 90 days Active Hydrochlorothiazide 25 MG Orally Once a day 1 tablet in the morning 24h 90 days Active Depend Pant Extra Large - as directed Oct, Active Albuterol (2.5 MG/3ML) 0.083% Inhalation 4 times a day as needed for SOB 2 puffs Jan, Active Escitalopram Oxalate 20 MG Orally Once a day 0.5 tablet 24h Active Ranitidine HCl 150 MG Orally twice a day 1 tablet 12h Active Cetirizine HCl 10 mg Orally Once a day 1 tablet 24h Jul, Not -Taking RESULTS No Results PROCEDURES Procedure Date Ordered Result Body Site [facility] VISIT ESTABLISHED PATIENT January 23, 2018 INSTRUCTIONS MEDICATIONS ADMINISTERED No Known Medications [...] History hepatitis C - successfully treated in [place] Medical History chronic obstructive pulmonary disease (COPD) Surgical History trachiotomy 2003 Surgical History [facility] Hospitalization History Surgery(s)/Childbirth(s) Hospitalization History Chest pain - [facility] 06/19/17 Hospitalization History pneumonia, sepsis, hypoxia, uTI, sarcoidosis - [facility] 07/01/17
--- OUTSIDE RECORDS SUMMARY | 2018-11-25 22:20 | XMS REPORT ---
Author Author SHARIFA BULLOCK Organization [facility] Address [address] 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 845992185 Problem Urge incontinence of urine N39.41 Active 49055312 Problem Major depression, chronic F34.1 Active 247299456 Problem Reflux esophagitis K21.0 Active 986455854 Problem Essential hypertension I10 Active 03908325 Problem History of anal cancer Z85.048 Active 144288082831568 Problem 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 Active 366836588460 ALLERGIES No Information ENCOUNTERS Encounter Location Date Diagnosis [facility] [address] [place] [address] 65822- 0128 Feb, [facility] [address] [place] [address] 63735- 8457 Feb, [facility] [id number] [place] [address] 37160- 7829 Feb, [facility] [id number] [place] [address] 86618- 8222 Jan, [place] [address] [address]- 3450 Jan, Sarcoidosis of lung D86.0 ; 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 ; 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 and BMI 50.0-59.9, adult Z68.43 [facility] [id number] [place] [address] 05028- 7803 Jan, [place] [id number] [place] [address] 57212- 8815 Jan, Sarcoidosis of lung D86.0 [place] [id number] [place] [address] 21699- 6211 Nov, Medicare annual wellness visit, initial Z00.00 ; Morbid ( severe) obesity due to excess calories E66.01 ; Sarcoidosis of lung D86.0 ; 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 ; Essential hypertension I10 ; Reflux esophagitis K21.0 ; History of anal cancer Z85.048 ; 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 ; Major depression, chronic F34.1 ; Screening for osteoporosis Z13.820 and BMI 50.0-59.9, adult Z68.43 [place] [id number] [place] [address] 93495- 5635 Nov, Sarcoidosis of lung D86.0 [place] [id number] [place] [address] 52439- 1274 Nov, Sarcoidosis of lung D86.0 [place] [id number] [place] [address] 94187- 2292 Oct, Urge incontinence of urine N39.41 ; Sarcoidosis of lung D86.0 ; History of anal cancer Z85.048 ; Dermatitis L30.9 and BMI 50.0-59.9, adult Z68.43 [place] [id number] [place] [address] 09362- 2454 Sep, [place] [id number] [place] [address] 96514- 2769 Jul, Rash and nonspecific skin eruption R21 ; Skin change R23.9 ; Screening for breast cancer Z12.31 and BMI 50.0-59.9, adult Z68.43 [place] [address] [place] [address] 64731- 3401 Jul, History of anal cancer Z85.048 ; Encounter for immunization Z23 ; Sarcoidosis of lung D86.0 ; Essential hypertension I10 and BMI 50.0-59.9, adult Z68.43 [facility] [id number] [place] [address] 59011- 9960 05 Jul, 2017 [facility] [id number] [place] [address] 15685- 9973 30 Jun, 2017 [place] [address] 62609- 2643 14 Jun, 2017 Atypical chest pain R07.89 ; Body mass index (BMI) of 50- 59.9 in adult Z68.43 ; Morbid (severe) obesity due to excess calories E66.01 ; Elevated LFTs R79.89 ; Reflux esophagitis K21.0 and 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 [place] [id number] [place] [address] 81793- 8196 Jun, [facility] [id number] [place] [address] 51400 -0273 May, Acute exacerbation of chronic obstructive pulmonary disease (COPD) J44.1 [place] [id number] [place] [address] 18160- 8881 May, [facility] [id number] [place] [address] 34517- 4365 May, Chronic hepatitis C without hepatic coma B18.2 [place] [id number] [place] [address] 47577- 6602 May, Chronic hepatitis C without hepatic coma B18.2 [facility] [id number] [place] [address] 13069- 5512 Apr, Chronic hepatitis C without hepatic coma B18.2 ; 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 ; Sarcoidosis of lung D86.0 ; Screening for diabetes mellitus (DM) Z13.1 ; Screening for lipid disorders Z13.220 ; Essential hypertension I10 ; Body mass index (BMI) of 50-59.9 in adult Z68.43 ; Morbid (severe) obesity due to excess calories E66.01 and Nasal congestion R09.81 [facility] [address] [facility] [id number] [address] Apr, IMMUNIZATIONS No Known Immunizations SOCIAL HISTORY Never Assessed REASON FOR VISIT PLAN OF CARE VITAL SIGNS MEDICATIONS Medication Instructions Dosage Frequency Start Date End Date Duration Status Albuterol Sulfate (2.5 MG/3ML) 0.083% Inhalation Three times a day 3 ml 8h 30 days Active RESULTS No Results PROCEDURES No [...] hepatitis C - successfully treated in [place] Medical History chronic obstructive pulmonary disease (COPD) Surgical History trachiotomy 2003 Surgical History [place] a cath Hospitalization History Surgery(s)/Childbirth(s) Hospitalization History Chest pain - [facility] 06/19/17 Hospitalization History pneumonia, sepsis, hypoxia, uTI, sarcoidosis - [facility] 07/01/17
--- OUTSIDE RECORDS SUMMARY | 2018-11-25 22:20 | XMS REPORT ---
Author Author SHARIFA BULLOCK Organization [facility] Address [address] 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 Active 348725761 Problem Urge incontinence of urine N39.41 Active 43832410 Problem Major depression, chronic F34.1 Active 588045775 Problem Reflux esophagitis K21.0 Active 710588590 Problem Essential hypertension I10 Active 26089549 Problem History of anal cancer Z85.048 Active 055521352444138 Problem 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 Active [id number] ALLERGIES No Information ENCOUNTERS Encounter Location Date Diagnosis [facility] [id number] [place] [address] 58523- 0757 Feb, [facility] [id number] [place] [address] 63437- 8869 Feb, [facility] [id number] [place] [address] 02604- 4994 Jan, [facility] [id number] [place] [address] 66322- 5371 Jan, Sarcoidosis of lung D86.0 ; 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 ; 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 and BMI 50.0-59.9, adult Z68.43 [facility] [id number] [place] [address] 24595- 0254 07 Jan, 2018 [facility] [address] 32535- 8834 Jan, Sarcoidosis of lung D86.0 [place] [address] 38969- 9022 Nov, Medicare annual wellness visit, initial Z00.00 ; Morbid ( severe) obesity due to excess calories E66.01 ; Sarcoidosis of lung D86.0 ; 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 ; Essential hypertension I10 ; Reflux esophagitis K21.0 ; History of anal cancer Z85.048 ; 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 ; Major depression, chronic F34.1 ; Screening for osteoporosis Z13.820 and BMI 50.0-59.9, adult Z68.[address] 5[address]25- 0346 Nov, Sarcoidosis of lung D86.[address] 50650- 3240 Nov, Sarcoidosis of lung D86.0 [place] [address] 18742- 8674 Oct, Urge incontinence of urine N39.41 ; Sarcoidosis of lung D86.0 ; History of anal cancer Z85.048 ; Dermatitis L30.9 and BMI 50.0-59.9, adult Z68.[address] 07459- 3972 Sep, [place] [address] 33660- 9103 Jul, Rash and nonspecific skin eruption R21 ; Skin change R23.9 ; Screening for breast cancer Z12.31 and BMI 50.0-59.9, adult Z68.43 [place] [id number] [place] [address] 59090- 3414 Jul, History of anal cancer Z85.048 ; Encounter for immunization Z23 ; Sarcoidosis of lung D86.0 ; Essential hypertension I10 and BMI 50.0-59.9, adult Z68.43 [place] [id number] [place] [address] 96862- 8821 05 Jul, 2017 [place] [address] 74594- 0755 Jun, [place] [id number] [place] [address] 38778- 3955 Jun, Atypical chest pain R07.89 ; Body mass index (BMI) of 50- 59.9 in adult Z68.43 ; Morbid (severe) obesity due to excess calories E66.01 ; Elevated LFTs R79.89 ; Reflux esophagitis K21.0 and 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 23808- 4124 Jun, [facility] [address] [place], [place] [id number] [place] [address] 14476 -0630 May, Acute exacerbation of chronic obstructive pulmonary disease (COPD) J44.1 [place] [id number] [place] [address] 81510- 0691 May, [address] 77664- 5939 May, Chronic hepatitis C without hepatic coma B18.2 [place] [id number] [place] [address] 20607- 9649 May, Chronic hepatitis C without hepatic coma B18.2 [place] [id number] [place] [address] 68744- 9956 Apr, Chronic hepatitis C without hepatic coma B18.2 ; 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 ; Sarcoidosis of lung D86.0 ; Screening for diabetes mellitus (DM) Z13.1 ; Screening for lipid disorders Z13.220 ; Essential hypertension I10 ; Body mass index (BMI) of 50-59.9 in adult Z68.43 ; Morbid (severe) obesity due to excess calories E66.01 and Nasal congestion R09.81 [place] [id number] [place] [address] [id number] 9066 Apr, IMMUNIZATIONS No Known Immunizations SOCIAL HISTORY Never Assessed REASON FOR VISIT Refill request PLAN OF CARE VITAL SIGNS MEDICATIONS Medication [...] History hepatitis C - successfully treated in [place] Medical History chronic obstructive pulmonary disease (COPD) Surgical History trachiotomy 2003 Surgical History [place] [facility] Hospitalization History Surgery(s)/Childbirth(s) Hospitalization History Chest pain - [facility] 06/19/17 Hospitalization History pneumonia, sepsis, hypoxia, uTI, sarcoidosis - [facility] 07/01/17
--- OUTSIDE RECORDS SUMMARY | 2018-11-25 22:20 | XMS REPORT ---
Author Author SHARIFA BULLOCK Organization [facility] Address [address] 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 Active 613889416 Problem Body mass index (BMI) of 50-59.9 in adult Z68.43 Active 612304635 Problem Morbid (severe) obesity due to excess calories E66.01 Active 271879078 Problem Chronic pain G89.29 Active 69536839 Problem Gait instability R26.81 Active 11439838 Problem History of anal cancer Z85.048 Active 473685509951039 Problem 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 Active 845165882661 Problem Urge incontinence of urine N39.41 Active 19177104 Problem Major depression, chronic F34.1 Active 570989512 ALLERGIES No Information ENCOUNTERS Encounter Location Date Diagnosis [facility] [address] [place] [address] 33806- 4677 Mar, [facility] [id number] [place] [address] 28267- 0222 Mar, [facility] [id number] [place] [address] 69891- 6172 Mar, Sarcoidosis of lung D86.0 ; 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 ; Gait instability R26.81 ; Other complicated headache syndrome G44.59 ; Chronic pain G89.29 and BMI 50.0-59.9, adult Z68.43 [facility] [address] [place] [address] 74971 -5227 Feb, Shortness of breath R06.02 ; Cough R05 and Bronchitis J40 [place] [address] [id number] [place] [address] 84688- 6344 Feb, At risk for falls Z91.81 ; Gait instability R26.81 and Urge incontinence of urine N39.41 [place] [address] [address] [id number] [place] [address] 74457- 6845 Feb, [place] [address] 14519- 4875 Feb, [place] [address] 17115- 4241 Feb, [place] [address] 32081- 7217 Jan, [place] [address] [place] [id number] [place] [address] 38539- 9917 Jan, Sarcoidosis of lung D86.0 ; 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 ; 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 and BMI 50.0-59.9, adult Z68.43 [place] [address] 23635- 9257 Jan, [place] [address] [place] [id number] [place] [address] 67343- 0141 Jan, Sarcoidosis of lung D86.0 [place] [address] [address] [id number] [place] [address] 90590- 0404 Nov, Medicare annual wellness visit, initial Z00.00 ; Morbid ( severe) obesity due to excess calories E66.01 ; Sarcoidosis of lung D86.0 ; 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 ; Essential hypertension I10 ; Reflux esophagitis K21.0 ; History of anal cancer Z85.048 ; 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 ; Major depression, chronic F34.1 ; Screening for osteoporosis Z13.820 and BMI 50.0-59.9, adult Z68.43 [place] [id number] [place] [address] 19100- 9453 Nov, Sarcoidosis of lung D86.0 [place] [address] 21377- 4598 Nov, Sarcoidosis of lung D86.0 [place] [address] 23025- 6063 Oct, Urge incontinence of urine N39.41 ; Sarcoidosis of lung D86.0 ; History of anal cancer Z85.048 ; Dermatitis L30.9 and BMI 50.0-59.9, adult Z68.43 [place] [address] 49734- 3158 Sep, [place] [address] 64996- 4216 Jul, Rash and nonspecific skin eruption R21 ; Skin change R23.9 ; Screening for breast cancer Z12.31 and BMI 50.0-59.9, adult Z68.43 [place] [address] 19940- 9302 20 Jul, 2017 History of anal cancer Z85.048 ; Encounter for immunization Z23 ; Sarcoidosis of lung D86.0 ; Essential hypertension I10 and BMI 50.0-59.9, adult Z68.43 [place] [address] 97045- 7763 05 Jul, 2017 [place] [address] 83780- 4002 30 Jun, 2017 [place] [address] 82961- 6516 14 Jun, 2017 Atypical chest pain R07.89 ; Body mass index (BMI) of 50- 59.9 in adult Z68.43 ; Morbid (severe) obesity due to excess calories E66.01 ; Elevated LFTs R79.89 ; Reflux esophagitis K21.0 and 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 [place] [address] 07023- 5820 Jun, [facility] [address] [facility] [id number] [address] May, Acute exacerbation of chronic obstructive pulmonary disease (COPD) J44.1 [facility] [address] [place] [id number] [address]- 5313 May, [facility] [address] [place] [id number] [address]- 5824 May, Chronic hepatitis C without hepatic coma B18.2 [facility] [address] [place] [id number] [address]- 3094 May, Chronic hepatitis C without hepatic coma B18.2 [facility] [address] [address] 6901 Apr, Chronic hepatitis C without hepatic coma B18.2 ; 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 ; Sarcoidosis of lung D86.0 ; Screening for diabetes mellitus (DM) Z13.1 ; Screening for lipid disorders Z13.220 ; Essential hypertension I10 ; Body mass index (BMI) of 50-59.9 in adult Z68.43 ; Morbid (severe) obesity due to excess calories E66.01 and Nasal congestion R09.81 [facility] [address] [place] [address] [id number] [address]- 3057 Apr, IMMUNIZATIONS No Known Immunizations SOCIAL HISTORY Never Assessed REASON FOR VISIT Enrolled in [facility] PLAN OF CARE VITAL SIGNS MEDICATIONS Unknown [...] History hepatitis C - successfully treated in [place] Medical History chronic obstructive pulmonary disease (COPD) Surgical History trachiotomy 2003 Surgical History [place] Hospitalization History Surgery(s)/Childbirth(s) Hospitalization History Chest pain - [facility] 06/19/17 Hospitalization History pneumonia, sepsis, hypoxia, uTI, sarcoidosis - [facility] 07/01/17
--- OUTSIDE RECORDS SUMMARY | 2018-11-25 22:20 | XMS REPORT ---
Author Author SHARIFA BULLOCK Organization [facility] Address [address] 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 Active 880558221 Problem Body mass index (BMI) of 50-59.9 in adult Z68.43 Active 068396262 Problem Morbid (severe) obesity due to excess calories E66.01 Active 733926218 Problem Chronic pain G89.29 Active 72263324 Problem Gait instability R26.81 Active 84484812 Problem History of anal cancer Z85.048 Active 763918411756316 Problem 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 Active 853625073067 Problem Urge incontinence of urine N39.41 Active 40941613 Problem Major depression, chronic F34.1 Active 805047836 ALLERGIES No Information ENCOUNTERS Encounter Location Date Diagnosis [facility] [address] [place] [address] 28003- 5677 Mar, [facility] [id number] [place] [address] 96673- 3825 Mar, Sarcoidosis of lung D86.0 ; 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 ; Gait instability R26.81 ; Other complicated headache syndrome G44.59 ; Chronic pain G89.29 and BMI 50.0-59.9, adult Z68.43 [facility] [address] [place] [address] 78614 -7940 Feb, Shortness of breath R06.02 ; Cough R05 and Bronchitis J40 [facility] [address] [id number] [place] [address] 48093- 2780 Feb, At risk for falls Z91.81 ; Gait instability R26.81 and Urge incontinence of urine N39.41 [place] [address] [place] [id number] [place] [address] 83162- 7157 Feb, [place] [address] [place] [id number] [place] [address] 03381- 7917 Feb, [place] [address] 29740- 5310 Feb, [place] [address] 46452- 6459 Jan, [place] [address] [place] [id number] [place] [address] 65623- 3060 Jan, Sarcoidosis of lung D86.0 ; 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 ; 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 and BMI 50.0-59.9, adult Z68.43 [place] [address] [place] [id number] [place] [address] 12015- 2572 Jan, [place] [address] 51408- 5884 Jan, Sarcoidosis of lung D86.0 [place] [address] [place] [id number] [place] [address] 90625- 8966 Nov, Medicare annual wellness visit, initial Z00.00 ; Morbid ( severe) obesity due to excess calories E66.01 ; Sarcoidosis of lung D86.0 ; 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 ; Essential hypertension I10 ; Reflux esophagitis K21.0 ; History of anal cancer Z85.048 ; 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 ; Major depression, chronic F34.1 ; Screening for osteoporosis Z13.820 and BMI 50.0-59.9, adult Z68.43 [place] [address] [place] [address] 80109- 3077 Nov, Sarcoidosis of lung D86.0 [place] [address] [place] [address] 67598- 0174 Nov, Sarcoidosis of lung D86.0 [place] [address] 38475- 2243 Oct, Urge incontinence of urine N39.41 ; Sarcoidosis of lung D86.0 ; History of anal cancer Z85.048 ; Dermatitis L30.9 and BMI 50.0-59.9, adult Z68.43 [place] [address] 80198- 8046 Sep, [place] [address] 78834- 5214 29 Jul, 2017 Rash and nonspecific skin eruption R21 ; Skin change R23.9 ; Screening for breast cancer Z12.31 and BMI 50.0-59.9, adult Z68.43 [place] [address] 27060- 0341 20 Jul, 2017 History of anal cancer Z85.048 ; Encounter for immunization Z23 ; Sarcoidosis of lung D86.0 ; Essential hypertension I10 and BMI 50.0-59.9, adult Z68.43 [place] [address] 64408- 8603 05 Jul, 2017 [place] [address] 12767- 2318 30 Jun, 2017 [place] [address] 52843- 1811 14 Jun, 2017 Atypical chest pain R07.89 ; Body mass index (BMI) of 50- 59.9 in adult Z68.43 ; Morbid (severe) obesity due to excess calories E66.01 ; Elevated LFTs R79.89 ; Reflux esophagitis K21.0 and 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 [place] [address] 85917- 7611 13 Jun, 2017 [facility] [address] 97745 -3661 May, Acute exacerbation of chronic obstructive pulmonary disease (COPD) J44.1 [place] [address] [place] [id number] [address]- 7285 May, [place] [address] [place] [address] 66761- 6723 May, Chronic hepatitis C without hepatic coma B18.2 [place] [address] [place] [address] 57900- 3079 May, Chronic hepatitis C without hepatic coma B18.2 [place] [address] [place] [address] 34952- 4713 Apr, Chronic hepatitis C without hepatic coma B18.2 ; 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 ; Sarcoidosis of lung D86.0 ; Screening for diabetes mellitus (DM) Z13.1 ; Screening for lipid disorders Z13.220 ; Essential hypertension I10 ; Body mass index (BMI) of 50-59.9 in adult Z68.43 ; Morbid (severe) obesity due to excess calories E66.01 and Nasal congestion R09.81 [place] [address] [place] [address] 24947- 1590 Apr, IMMUNIZATIONS No Known Immunizations SOCIAL HISTORY Never Assessed REASON FOR VISIT Medication refill request PLAN OF CARE VITAL SIGNS MEDICATIONS Medication Instructions Dosage Frequency Start Date End Date Duration Status Hydrochlorothiazide 25 MG Orally Once a day 1 tablet in the morning 24h 90 days Active Albuterol Sulfate (2.5 MG/3ML) 0.083% Inhalation Three times a day 3 ml 8h 30 days Active Lasix 20 mg Orally Once a day 1 tablet 24h 90 days Active RESULTS No Results PROCEDURES [...] History Surgery(s)/Childbirth(s) Hospitalization History Chest pain - [facility] 06/19/17 Hospitalization History pneumonia, sepsis, hypoxia, uTI, sarcoidosis - [facility] 07/01/17
--- OUTSIDE RECORDS SUMMARY | 2018-11-25 22:20 | XMS REPORT ---
Author Author SHARIFA BULLOCK Organization [facility] Address [address] [place] [address] Care Team Providers Care U.S. 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 274666979 Problem Body mass index (BMI) of 50-59.9 in adult Z68.43 Active 853635499 Problem Gait instability R26.81 Active 12007807 Problem Urge incontinence of urine N39.41 Active 91406838 Problem 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 Active 744079376544 Problem Reflux esophagitis K21.0 Active 049073422 Problem Major depression, chronic F34.1 Active 615694658 Problem History of anal cancer Z85.048 Active [id number] ALLERGIES No Known Allergies ENCOUNTERS Encounter Location Date Diagnosis [facility] [id number] [place] [address] 48756[address]600 Mar, [facility] [id number] [place] [address]32 -[phone] Feb, Shortness of breath R06.02 ; Cough R05 and Bronchitis J40 [facility] [id number] [place] [address] 08405- 4821 Feb, At risk for falls Z91.81 ; Gait instability R26.81 and Urge incontinence of urine N39.41 [facility] [id number] [place] [address] 90838- 9903 Feb, [facility] [address] [address] Feb, [facility] [address] [place] [address] 76146- 2143 Feb, [facility] [id number] [place] [address] 49963- 1211 Jan, [place] [id number] [place] [address] 15824- 7137 Jan, Sarcoidosis of lung D86.0 ; 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0 ; History of anal cancer Z85.048 ; 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 ; Major depression, chronic F34.1 ; Screening for osteoporosis Z13.820 and BMI 50.0-59.9, adult Z68.43 [place] [address] [place] [address] 56740- 9105 Nov, Sarcoidosis of lung D86.0 [place] [id number] [place] [address] 60757- 6407 Nov, Sarcoidosis of lung D86.0 [place] [id number] [place] [address] [id number]- 4081 Oct, Urge incontinence of urine N39.41 ; Sarcoidosis of lung D86.0 ; History of anal cancer Z85.048 ; Dermatitis L30.9 and BMI 50.0-59.9, adult Z68.43 [place] [id number] [place] [address] 62077- 9664 Sep, [address] [address]- [address] Jul, Rash and nonspecific skin eruption R21 ; Skin change R23.9 ; Screening for breast cancer Z12.31 and BMI 50.0-59.9, adult Z68.[address] 55009- 5978 Jul, History of anal cancer Z85.048 ; Encounter for immunization Z23 ; Sarcoidosis of lung D86.0 ; Essential hypertension I10 and BMI 50.0-59.9, adult Z68.43 [place] [id number] [place] [address] 41498- 6325 Jul, [address] [address]37- 3594 Jun, [place] [id number] [place] [address] 55055- 8333 14 Jun, 2017 Atypical chest pain R07.89 ; Body mass index (BMI) of 50- 59.9 in adult Z68.43 ; Morbid (severe) obesity due to excess calories E66.01 ; Elevated LFTs R79.89 ; Reflux esophagitis K21.0 and 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 [place] [id number] [place] [address] 80266- 6753 Jun, [facility] [address] [place] [address] 32100 -5251 May, Acute exacerbation of chronic obstructive pulmonary disease (COPD) J44.[address] 76637- 5528 May, [place] [id number] [place] [address] 02685- 7832 May, Chronic hepatitis C without hepatic coma B18.[address] [facility] [id number] [place] [address] May, Chronic hepatitis C without hepatic coma B18.2 [place] [address] [facility] [id number] [address] Apr, Chronic hepatitis C without hepatic coma B18.2 ; 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 ; Sarcoidosis of lung D86.0 ; Screening for diabetes mellitus (DM) Z13.1 ; Screening for lipid disorders Z13.220 ; Essential hypertension I10 ; Body mass index (BMI) of 50-59.9 in adult Z68.43 ; Morbid (severe) obesity due to excess calories E66.01 and Nasal congestion R09.81 [place] [address] [facility] [id number] [place] [address] Apr, IMMUNIZATIONS No Known Immunizations SOCIAL HISTORY Never Assessed REASON FOR VISIT Medicare AWV - Initial Visit-[facility] PLAN OF CARE Activity Details Follow Up 1 Year Reason: VITAL SIGNS Height 5'7" in 2017-11-30 Weight 329.9 lbs 2017-11-30 Temperature 98.7 degrees Fahrenheit 2017-11-30 Heart Rate 84 bpm 2017-11-30 Respiratory Rate 22 2017-11-30 Oximetry w/ oxygen @ 3L:98 % 2017-11-30 BMI 51.66 kg/m2 2017-11-30 Blood pressure systolic 128 mmHg 2017-11-30 Blood pressure diastolic 82 mmHg 2017-11-30 MEDICATIONS Medication Instructions Dosage Frequency Start Date End Date Duration Status Potassium Bicarb-Citric Acid 10 MEQ Orally Once a day 1 tablet 24h Active Escitalopram Oxalate 20 MG Orally Once a day 0.5 tablet 24h Active Ibuprofen 800 MG Orally Three times a day 1 tablet with food or milk as needed 8h Active Ranitidine HCl 150 MG Orally twice a day 1 tablet 12h Active Oxygen 3LT Active Hydrochlorothiazide 25 MG Orally Once a day 1 tablet in the morning 24h Active Cyclobenzaprine HCl 5 mg Orally PRN 1 tablet as needed Active Cetirizine HCl 10 mg Orally Once a day 1 tablet 24h Jul, Not -Taking Albuterol Sulfate (2.5 MG/3ML) 0.083% Inhalation Three times a day 3 ml 8h 30 days Active Fluticasone Propionate 50 MCG/ACT Nasally Once a day 1 spray in each nostril 24h Active Lasix 20 MG Orally Once a day 1 tablet 24h Active Depend Pant Extra Large - as directed Oct, Active RESULTS Name Result Date Reference Range DEXA 2018-01-26 PROCEDURES Procedure Date Ordered Result Body Site [facility] VISIT IPPE/AWV November 30, 2017 ANNUAL STONE VST; PERSNL PPS INIT November 30, 2017 PT TOBACCO SCREEN RCVD TLK November 30, 2017 FALL RISK ASSESSMENT DOCD November 30, 2017 NEG SCR D PT NOT ELIG F/U/PLN DOC November 30, 2017 INSTRUCTIONS MEDICATIONS ADMINISTERED No Known Medications MEDICAL [...] History hepatitis C - successfully treated in [place] Medical History chronic obstructive pulmonary disease (COPD) Surgical History trachiotomy 2003 Surgical History Port a cath Hospitalization History Surgery(s)/Childbirth(s) Hospitalization History Chest pain - [facility] 06/19/17 Hospitalization History pneumonia, sepsis, hypoxia, uTI, sarcoidosis - [facility] 07/01/17
--- OUTSIDE RECORDS SUMMARY | 2018-11-25 22:20 | XMS REPORT ---
Author Author SHARIFA BULLOCK Organization [facility] Address [address] 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 Active 241827873 Problem Urge incontinence of urine N39.41 Active 90748437 Problem Major depression, chronic F34.1 Active 638259059 Problem Reflux esophagitis K21.0 Active 013031085 Problem Essential hypertension I10 Active 18868866 Problem History of anal cancer Z85.048 Active 451251834634229 Problem 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 Active 180205243499 ALLERGIES No Known Allergies ENCOUNTERS Encounter Location Date Diagnosis [facility] [address] [address]- [address] Feb, [facility] [id number] [place] [address] 54567- 2666 Jan, [facility] [address] [address]- 9510 Jan, Sarcoidosis of lung D86.0 ; 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 ; 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 and BMI 50.0-59.9, adult Z68.43 [facility] [address] 42374- 9136 Jan, [facility] [id number] [place] [address] 79873- 9857 Jan, Sarcoidosis of lung D86.0 [place] [address] [address]- 6427 Nov, Medicare annual wellness visit, initial Z00.00 ; Morbid ( severe) obesity due to excess calories E66.01 ; Sarcoidosis of lung D86.0 ; 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 ; Essential hypertension I10 ; Reflux esophagitis K21.0 ; History of anal cancer Z85.048 ; 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 ; Major depression, chronic F34.1 ; Screening for osteoporosis Z13.820 and BMI 50.0-59.9, adult Z68.43 [place] [address] [address]66- 0232 Nov, Sarcoidosis of lung D86.0 [place] [address] 31740- 0855 Nov, Sarcoidosis of lung D86.[address] 47[address]- 8505 Oct, Urge incontinence of urine N39.41 ; Sarcoidosis of lung D86.0 ; History of anal cancer Z85.048 ; Dermatitis L30.9 and BMI 50.0-59.9, adult Z68.[address] 42934- [address] Sep, [place] [address] 8[address]- 8799 Jul, Rash and nonspecific skin eruption R21 ; Skin change R23.9 ; Screening for breast cancer Z12.31 and BMI 50.0-59.9, adult Z68.[address] 732[address]- 6074 20 Jul, 2017 History of anal cancer Z85.048 ; Encounter for immunization Z23 ; Sarcoidosis of lung D86.0 ; Essential hypertension I10 and BMI 50.0-59.9, adult Z68.[address] 54[address]- 6109 Jul, [facility] [address] [place] [address] 26745- 0832 Jun, [place] [id number] [place] [address] 21110- 2783 Jun, Atypical chest pain R07.89 ; Body mass index (BMI) of 50- 59.9 in adult Z68.43 ; Morbid (severe) obesity due to excess calories E66.01 ; Elevated LFTs R79.89 ; Reflux esophagitis K21.0 and 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 [place] [id number] [place] [address] 86100- 0363 Jun, [facility] [address] [place] [id number] [place] [address] 17125 -1114 May, Acute exacerbation of chronic obstructive pulmonary disease (COPD) J44.1 [place] [id number] [place] [address] 76782- 5967 May, [place] [id number] [place] [address] 78748- 5891 May, Chronic hepatitis C without hepatic coma B18.2 [place] [id number] [place] [address] 72081- 9031 May, Chronic hepatitis C without hepatic coma B18.2 [address] [place] [address] 32789- 3538 Apr, Chronic hepatitis C without hepatic coma B18.2 ; 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 ; Sarcoidosis of lung D86.0 ; Screening for diabetes mellitus (DM) Z13.1 ; Screening for lipid disorders Z13.220 ; Essential hypertension I10 ; Body mass index (BMI) of 50-59.9 in adult Z68.43 ; Morbid (severe) obesity due to excess calories E66.01 and Nasal congestion R09.81 [address] [place] [address] 09525- 5620 Apr, IMMUNIZATIONS No Known Immunizations SOCIAL HISTORY Never Assessed REASON FOR VISIT [facility] PLAN OF CARE Activity Details Follow Up 3 Months Reason:sarcoidosis VITAL SIGNS Height 5'7" in 2017-10-06 Weight 335 lbs 2017-10-06 Temperature 98.5 degrees Fahrenheit 2017-10-06 Heart Rate 96 bpm 2017-10-06 Respiratory Rate 22 2017-10-06 Oximetry w/ oxygen @ 3L:96 % 2017-10-06 BMI 52.46 kg/m2 2017-10-06 Blood pressure systolic 100 mmHg 2017-10-06 Blood pressure diastolic 70 mmHg 2017-10-06 MEDICATIONS Medication Instructions Dosage Frequency Start Date End Date Duration Status Fluticasone Propionate 50 MCG/ACT Nasally Once a day 1 spray in each nostril 24h Active Cyclobenzaprine HCl 5 mg Orally PRN 1 tablet as needed Active Albuterol Sulfate (2.5 MG/3ML) 0.083% Inhalation Three times a day 3 ml 8h Active Depend Pant Extra Large - as directed Oct, Active Cetirizine HCl 10 mg Orally Once a day 1 tablet 24h Jul, Not -Taking Ranitidine HCl 150 MG Orally twice a day 1 tablet 12h Active Lasix 20 MG Orally Once a day 1 tablet 24h Active Potassium Bicarb-Citric Acid 10 MEQ Orally Once a day 1 tablet 24h Active Escitalopram Oxalate 20 MG Orally Once a day 0.5 tablet 24h Active Hydrochlorothiazide 25 MG Orally Once a day 1 tablet in the morning 24h Active Ibuprofen 800 MG Orally Three times a day 1 tablet with food or milk as needed 8h Active Oxygen 3LT Active RESULTS No Results PROCEDURES Procedure Date Ordered Result Body Site [facility] VISIT ESTABLISHED PATIENT October 06, 2017 INSTRUCTIONS MEDICATIONS ADMINISTERED No Known Medications [...] History hepatitis C - successfully treated in [place] Medical History chronic obstructive pulmonary disease (COPD) Surgical History trachiotomy 2003 Surgical History Port a cath Hospitalization History Surgery(s)/Childbirth(s) Hospitalization History Chest pain - [facility] 06/19/17 Hospitalization History pneumonia, sepsis, hypoxia, uTI, sarcoidosis - [facility] 07/01/17
--- OUTSIDE RECORDS SUMMARY | 2018-11-25 22:21 | XMS REPORT ---
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00 ; Morbid ( severe) obesity due to excess calories E66.01 ; Sarcoidosis of lung D86.0 ; 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 ; Essential hypertension I10 ; Reflux esophagitis K21.0 ; History of anal cancer Z85.048 ; 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 ; Major depression, chronic F34.1 ; Screening for osteoporosis Z13.820 and BMI 50.0-59.9, adult Z68.43 [facility] [place] [id number] [place] [address] 36360- 2363 Nov, Sarcoidosis of lung D86.0 [facility] [place] [address] [id number] [address] Nov, Sarcoidosis of lung D86.0 [facility] [place] [address] [address] Oct, Urge incontinence of urine N39.41 ; Sarcoidosis of lung D86.0 ; History of anal cancer Z85.048 ; Dermatitis L30.9 and BMI 50.0-59.9, adult Z68.43 [place] [address] [address]- [address] Sep, [facility] [place] [address] [address]- [address] Jul, Rash and nonspecific skin eruption R21 ; Skin change R23.9 ; Screening for breast cancer Z12.31 and BMI 50.0-59.9, adult Z68.43 [place] [address] 9[address]- 0471 20 Jul, 2017 History of anal cancer Z85.048 ; Encounter for immunization Z23 ; Sarcoidosis of lung D86.0 ; Essential hypertension I10 and BMI 50.0-59.9, adult Z68.43 [place] [address] [address]- [address] 05 Jul, 2017 [place] [address] 00[address]- 9866 30 Jun, 2017 [place] [address] 645[address]- 7977 14 Jun, 2017 Atypical chest pain R07.89 ; Body mass index (BMI) of 50- 59.9 in adult Z68.43 ; Morbid (severe) obesity due to excess calories E66.01 ; Elevated LFTs R79.89 ; Reflux esophagitis K21.0 and 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 [place] [address] 279[address]- 2489 13 Jun, 2017 [facility] [address] [address] May, Acute exacerbation of chronic obstructive pulmonary disease (COPD) J44.1 [place] [address] [facility] [id number] [address]- [address] May, [place] [address] [address]- [address] May, Chronic hepatitis C without hepatic coma B18.2 [place] [address] [address]- 6115 May, Chronic hepatitis C without hepatic coma B18.2 [place] [address] [address]- 4275 Apr, Chronic hepatitis C without hepatic coma B18.2 ; 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 ; Sarcoidosis of lung D86.0 ; Screening for diabetes mellitus (DM) Z13.1 ; Screening for lipid disorders Z13.220 ; Essential hypertension I10 ; Body mass index (BMI) of 50-59.9 in adult Z68.43 ; Morbid (severe) obesity due to excess calories E66.01 and Nasal congestion R09.81 [place] [address] [facility] [id number] [place] [address]- 0580 Apr, IMMUNIZATIONS No Known Immunizations SOCIAL HISTORY Never Assessed REASON FOR VISIT deferred lab PLAN OF CARE VITAL SIGNS MEDICATIONS Unknown [...] History hepatitis C - successfully treated in [place] Medical History chronic obstructive pulmonary disease (COPD) Surgical History trachiotomy 2003 Surgical History Port a cath Hospitalization History Surgery(s)/Childbirth(s) Hospitalization History Chest pain - [facility] 06/19/17 Hospitalization History pneumonia, sepsis, hypoxia, uTI, sarcoidosis - [facility] 07/01/17
--- OUTSIDE RECORDS SUMMARY | 2018-11-25 22:21 | XMS REPORT ---
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 Active 288074564 Problem Urge incontinence of urine N39.41 Active 31347210 Problem Major depression, chronic F34.1 Active 773231953 Problem Reflux esophagitis K21.0 Active 835163111 Problem Essential hypertension I10 Active 96239118 Problem History of anal cancer Z85.048 Active 384311443965432 Problem 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 Active [id number] ALLERGIES No Known Allergies ENCOUNTERS Encounter Location Date Diagnosis [place] [address] [place] [address] 77122- 2710 Jan, [place] [address] [place] [id number] [place] [address] 22419- 1051 Jan, [facility] [address] [place] [id number] [place] [address] 80725- 9007 Jan, [facility] [address] [place] [id number] [place] [address] 19469- 2229 Jan, Sarcoidosis of lung D86.0 [facility] [address] [place] [id number] [place] [address] 38289- 4334 Nov, Medicare annual wellness visit, initial Z00.00 ; Morbid ( severe) obesity due to excess calories E66.01 ; Sarcoidosis of lung D86.0 ; 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 ; Essential hypertension I10 ; Reflux esophagitis K21.0 ; History of anal cancer Z85.048 ; 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 ; Major depression, chronic F34.1 ; Screening for osteoporosis Z13.820 and BMI 50.0-59.9, adult Z68.43 [place] [address] [place] [id number] [place] [address] 46637- 8016 Nov, Sarcoidosis of lung D86.0 [place] [address] 38166- 3296 Nov, Sarcoidosis of lung D86.0 [place] [address] 22240- 1667 Oct, Urge incontinence of urine N39.41 ; Sarcoidosis of lung D86.0 ; History of anal cancer Z85.048 ; Dermatitis L30.9 and BMI 50.0-59.9, adult Z68.43 [place] [address] 31360- 0[address] Sep, [place] [address] 0[address]- 459[address] Jul, Rash and nonspecific skin eruption R21 ; Skin change R23.9 ; Screening for breast cancer Z12.31 and BMI 50.0-59.9, adult Z68.43 [place] [address] 65[address]- 6885 20 Jul, 2017 History of anal cancer Z85.048 ; Encounter for immunization Z23 ; Sarcoidosis of lung D86.0 ; Essential hypertension I10 and BMI 50.0-59.9, adult Z68.43 [place] [address] 64207- 3712 Jul, [place] [address] 52699- 0690 Jun, [place] [address] 70076- 3614 Jun, Atypical chest pain R07.89 ; Body mass index (BMI) of 50- 59.9 in adult Z68.43 ; Morbid (severe) obesity due to excess calories E66.01 ; Elevated LFTs R79.89 ; Reflux esophagitis K21.0 and 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 [facility] [address] [place] [id number] [place] [address] 37566- 5391 Jun, [facility] [address] [place] [id number] [place] [address] 02148 -4756 May, Acute exacerbation of chronic obstructive pulmonary disease (COPD) J44.1 [place] [address] 54626- 3446 May, [facility] [address] [place] [id number] [place] [address] 11822- 5179 May, Chronic hepatitis C without hepatic coma B18.2 [place] [address] [place] [id number] [place] [address] 48503- 0543 May, Chronic hepatitis C without hepatic coma B18.2 [facility] [address] [place] [id number] [place] [address] 85135- 6916 Apr, Chronic hepatitis C without hepatic coma B18.2 ; 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 ; Sarcoidosis of lung D86.0 ; Screening for diabetes mellitus (DM) Z13.1 ; Screening for lipid disorders Z13.220 ; Essential hypertension I10 ; Body mass index (BMI) of 50-59.9 in adult Z68.43 ; Morbid (severe) obesity due to excess calories E66.01 and Nasal congestion R09.81 [facility] [address] [place] [id number] [place] [address] 73247- 3190 Apr, IMMUNIZATIONS No Known Immunizations SOCIAL HISTORY Never Assessed REASON FOR VISIT Rash all over that started 3-4 days ago [facility] PLAN OF CARE Activity Details Follow Up prn Reason: VITAL SIGNS Height 5'7" in 2017-08-05 Weight 340 lbs 2017-08-05 Temperature 97.4 degrees Fahrenheit 2017-08-05 Heart Rate 96 bpm 2017-08-05 Respiratory Rate 24 2017-08-05 BMI 53.25 kg/m2 2017-08-05 Blood pressure systolic 90 mmHg 2017-08-05 Blood pressure diastolic 56 mmHg 2017-08-05 MEDICATIONS Medication Instructions Dosage Frequency Start Date End Date Duration Status Hydrochlorothiazide 25 MG Orally Once a day 1 tablet in the morning 24h Active Lasix 20 MG Orally Once a day 1 tablet 24h Active Ranitidine HCl 150 MG Orally twice a day 1 tablet 12h Active Omeprazole 20 mg Orally Once a day 1 capsule 24h Jun, 30 day(s ) Not-Taking Cetirizine HCl 10 mg Orally Once a day 1 tablet 24h Jul, Active Cyclobenzaprine HCl 5 mg Orally PRN 1 tablet as needed Active Spiriva HandiHaler 18 MCG Inhalation Once a day 1 capsule 24h Not- Taking Escitalopram Oxalate 20 MG Orally Once a day 0.5 tablet 24h Active Albuterol Sulfate (2.5 MG/3ML) 0.083% Inhalation Three times a day 3 ml 8h Active Potassium Bicarb-Citric Acid 10 MEQ Orally Once a day 1 tablet 24h Active Fluticasone Propionate 50 MCG/ACT Nasally Once a day 1 spray in each nostril 24h Active RESULTS Name Result Date Reference Range Mammogram, Bilateral Screening 2017-08-17 PROCEDURES Procedure Date Ordered Result Body Site [facility] VISIT ESTABLISHED PATIENT Aug 05, 2017 INSTRUCTIONS MEDICATIONS ADMINISTERED No Known Medications [...] History hepatitis C - successfully treated in [place] [facility] History chronic obstructive pulmonary disease (COPD) Surgical History trachiotomy 2003 Surgical History [facility] Hospitalization History Surgery(s)/Childbirth(s) Hospitalization History Chest pain - [facility] 06/19/17 Hospitalization History pneumonia, sepsis, hypoxia, uTI, sarcoidosis - [facility] 07/01/17
--- OUTSIDE RECORDS SUMMARY | 2018-11-25 22:21 | XMS REPORT ---
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 574945219 Problem Urge incontinence of urine N39.41 Active 48712668 Problem Major depression, chronic F34.1 Active 350870841 Problem Reflux esophagitis K21.0 Active 300244094 Problem Essential hypertension I10 Active 46894085 Problem History of anal cancer Z85.048 Active 023649198646333 Problem 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 Active [id number] ALLERGIES No Information ENCOUNTERS Encounter Location Date Diagnosis [facility] [address] [place] [address] 31716- 5338 Nov, Medicare annual wellness visit, initial Z00.00 ; Morbid ( severe) obesity due to excess calories E66.01 ; Sarcoidosis of lung D86.0 ; 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 ; Essential hypertension I10 ; Reflux esophagitis K21.0 ; History of anal cancer Z85.048 ; 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 ; Major depression, chronic F34.1 ; Screening for osteoporosis Z13.820 and BMI 50.0-59.9, adult Z68.43 [facility] [address] [place] [id number] [place] [address] 60864- 7031 Nov, Sarcoidosis of lung D86.0 [facility] [address] [place] [id number] [address] Nov, Sarcoidosis of lung D86.0 [facility] [address] 34590- 6541 Oct, Urge incontinence of urine N39.41 ; Sarcoidosis of lung D86.0 ; History of anal cancer Z85.048 ; Dermatitis L30.9 and BMI 50.0-59.9, adult Z68.43 [place] [address] 31627- 4085 Sep, [facility] [address] 94098- 4918 Jul, Rash and nonspecific skin eruption R21 ; Skin change R23.9 ; Screening for breast cancer Z12.31 and BMI 50.0-59.9, adult Z68.43 [place] [address] 79713- 2241 20 Jul, 2017 History of anal cancer Z85.048 ; Encounter for immunization Z23 ; Sarcoidosis of lung D86.0 ; Essential hypertension I10 and BMI 50.0-59.9, adult Z68.43 [place] [address] 29290- 3028 05 Jul, 2017 [place] [address] 19792- 9016 30 Jun, 2017 [place] [address] 96143- 4173 14 Jun, 2017 Atypical chest pain R07.89 ; Body mass index (BMI) of 50- 59.9 in adult Z68.43 ; Morbid (severe) obesity due to excess calories E66.01 ; Elevated LFTs R79.89 ; Reflux esophagitis K21.0 and 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 [place] [address] 09077- 9179 13 Jun, 2017 [facility] [address] 745[address] -1159 May, Acute exacerbation of chronic obstructive pulmonary disease (COPD) J44.1 [place] [address] [facility] [id number] [address] May, [place] [address] [address] 1204 May, Chronic hepatitis C without hepatic coma B18.2 [place] [address] [place] [id number] [address]- 0370 May, Chronic hepatitis C without hepatic coma B18.2 [place] [address] [address] 0769 Apr, Chronic hepatitis C without hepatic coma B18.2 ; 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 ; Sarcoidosis of lung D86.0 ; Screening for diabetes mellitus (DM) Z13.1 ; Screening for lipid disorders Z13.220 ; Essential hypertension I10 ; Body mass index (BMI) of 50-59.9 in adult Z68.43 ; Morbid (severe) obesity due to excess calories E66.01 and Nasal congestion R09.81 [place] [address] [facility] [id number] [address] Apr, IMMUNIZATIONS No Known Immunizations SOCIAL HISTORY Never Assessed REASON FOR VISIT Requests return call PLAN OF CARE VITAL SIGNS MEDICATIONS [...] History Surgery(s)/Childbirth(s) Hospitalization History Chest pain - [facility] 06/19/17 Hospitalization History pneumonia, sepsis, hypoxia, uTI, sarcoidosis - [facility] 07/01/17
--- OUTSIDE RECORDS SUMMARY | 2018-11-25 22:21 | XMS REPORT ---
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 819105796 Problem Urge incontinence of urine N39.41 Active 10366096 Problem Major depression, chronic F34.1 Active 995549751 Problem Reflux esophagitis K21.0 Active 299093722 Problem Essential hypertension I10 Active 33943103 Problem History of anal cancer Z85.048 Active 537867690925270 Problem 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 Active [id number] ALLERGIES No Information ENCOUNTERS Encounter Location Date Diagnosis [facility] [address] [place] [address] 49632- 5784 Jan, [facility] [address] [place] [address] 92301- 6081 18 Jan, 2018 [place] [address] [place] [id number] [place] [address] 45284- 8849 Jan, [facility] [address] [place] [id number] [place] [address] 96615- 7528 Nov, Medicare annual wellness visit, initial Z00.00 ; Morbid ( severe) obesity due to excess calories E66.01 ; Sarcoidosis of lung D86.0 ; 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 ; Essential hypertension I10 ; Reflux esophagitis K21.0 ; History of anal cancer Z85.048 ; 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 ; Major depression, chronic F34.1 ; Screening for osteoporosis Z13.820 and BMI 50.0-59.9, adult Z68.[address] 112[address]- 5338 Nov, Sarcoidosis of lung D86.[address] 55872- 9261 Nov, Sarcoidosis of lung D86.[address] 71020- 0989 Oct, Urge incontinence of urine N39.41 ; Sarcoidosis of lung D86.0 ; History of anal cancer Z85.048 ; Dermatitis L30.9 and BMI 50.0-59.9, adult Z68.[address] 77102- 4260 Sep, [address] 92855- 6762 Jul, Rash and nonspecific skin eruption R21 ; Skin change R23.9 ; Screening for breast cancer Z12.31 and BMI 50.0-59.9, adult Z68.[address] 24834- 5907 Jul, History of anal cancer Z85.048 ; Encounter for immunization Z23 ; Sarcoidosis of lung D86.0 ; Essential hypertension I10 and BMI 50.0-59.9, adult Z68.[address] 93027- 3542 Jul, [address] 279[address]- 1944 Jun, [address] 24350- 5117 Jun, Atypical chest pain R07.89 ; Body mass index (BMI) of 50- 59.9 in adult Z68.43 ; Morbid (severe) obesity due to excess calories E66.01 ; Elevated LFTs R79.89 ; Reflux esophagitis K21.0 and 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 [facility] [address] [place] [address] 26528- 9515 Jun, [facility] [address] [place] [address] 29857 -8595 May, Acute exacerbation of chronic obstructive pulmonary disease (COPD) J44.1 [facility] [address] [place] [id number] [place] [address] 10799- 0622 May, [facility] [address] [place] [id number] [place] [address] 30207- 4977 May, Chronic hepatitis C without hepatic coma B18.2 [place] [address] [place] [id number] [place] [address] 08294- 0921 May, Chronic hepatitis C without hepatic coma B18.2 [facility] [address] [place] [id number] [place] [address] 31347- 1251 Apr, Chronic hepatitis C without hepatic coma B18.2 ; 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 ; Sarcoidosis of lung D86.0 ; Screening for diabetes mellitus (DM) Z13.1 ; Screening for lipid disorders Z13.220 ; Essential hypertension I10 ; Body mass index (BMI) of 50-59.9 in adult Z68.43 ; Morbid (severe) obesity due to excess calories E66.01 and Nasal congestion R09.81 [facility] [address] [place] [address] 21316- 5845 Apr, IMMUNIZATIONS No Known Immunizations SOCIAL HISTORY Never Assessed REASON FOR VISIT FY PLAN OF CARE VITAL SIGNS MEDICATIONS Unknown [...] History Surgery(s)/Childbirth(s) Hospitalization History Chest pain - [facility] 06/19/17 Hospitalization History pneumonia, sepsis, hypoxia, uTI, sarcoidosis - [facility] 07/01/17
--- OUTSIDE RECORDS SUMMARY | 2018-11-25 22:21 | XMS REPORT ---
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 Active 869958552 Problem Urge incontinence of urine N39.41 Active 54233644 Problem Major depression, chronic F34.1 Active 197119540 Problem Reflux esophagitis K21.0 Active 929954928 Problem Essential hypertension I10 Active 27994796 Problem History of anal cancer Z85.048 Active 832934132820922 Problem 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 Active [id number] ALLERGIES No Information ENCOUNTERS Encounter Location Date Diagnosis [facility] [address] [place] [address] 73671- 3199 Nov, Medicare annual wellness visit, initial Z00.00 ; Morbid ( severe) obesity due to excess calories E66.01 ; Sarcoidosis of lung D86.0 ; 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 ; Essential hypertension I10 ; Reflux esophagitis K21.0 ; History of anal cancer Z85.048 ; 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 ; Major depression, chronic F34.1 ; Screening for osteoporosis Z13.820 and BMI 50.0-59.9, adult Z68.43 [facility] [address] [place] [id number] [place] [address] 31830- 5549 Nov, Sarcoidosis of lung D86.0 [facility] [address] [place] [id number] [address]- 8642 Nov, Sarcoidosis of lung D86.0 [facility] [address] 79336- 5773 Oct, Urge incontinence of urine N39.41 ; Sarcoidosis of lung D86.0 ; History of anal cancer Z85.048 ; Dermatitis L30.9 and BMI 50.0-59.9, adult Z68.43 [place] [address] 34441- 3507 Sep, [facility] [address] 03110- 5686 Jul, Rash and nonspecific skin eruption R21 ; Skin change R23.9 ; Screening for breast cancer Z12.31 and BMI 50.0-59.9, adult Z68.43 [place] [address] 78824- 3207 20 Jul, 2017 History of anal cancer Z85.048 ; Encounter for immunization Z23 ; Sarcoidosis of lung D86.0 ; Essential hypertension I10 and BMI 50.0-59.9, adult Z68.43 [place] [address] 18167- 0014 05 Jul, 2017 [place] [address] 23695- 5898 30 Jun, 2017 [place] [address] 37938- 5733 14 Jun, 2017 Atypical chest pain R07.89 ; Body mass index (BMI) of 50- 59.9 in adult Z68.43 ; Morbid (severe) obesity due to excess calories E66.01 ; Elevated LFTs R79.89 ; Reflux esophagitis K21.0 and 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 [place] [address] 86839- 7291 13 Jun, 2017 [facility] [address] [address] May, Acute exacerbation of chronic obstructive pulmonary disease (COPD) J44.1 [place] [address] [facility] [id number] [address] May, [place] [address] [place] [id number] [address] 3020 May, Chronic hepatitis C without hepatic coma B18.2 [place] [address] [place] [id number] [address]- 2643 May, Chronic hepatitis C without hepatic coma B18.2 [place] [address] [place] [id number] [address]- 6537 Apr, Chronic hepatitis C without hepatic coma B18.2 ; 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 ; Sarcoidosis of lung D86.0 ; Screening for diabetes mellitus (DM) Z13.1 ; Screening for lipid disorders Z13.220 ; Essential hypertension I10 ; Body mass index (BMI) of 50-59.9 in adult Z68.43 ; Morbid (severe) obesity due to excess calories E66.01 and Nasal congestion R09.81 [place] [address] [facility] [id number] [address]- 7435 Apr, IMMUNIZATIONS No Known Immunizations SOCIAL HISTORY Never Assessed REASON FOR VISIT Lab (walk-in) PLAN OF CARE VITAL SIGNS MEDICATIONS Unknown Medications RESULTS Name Result Date Reference Range HEP C RNA QUANT ([facility] ONLY) 2017-05-16 PROCEDURES Procedure Date Ordered Result Body Site HEP C RNA QUANT ([place] ONLY) May 16, 2017 VENIPUNCT, ROUTINE* May 16, 2017 INSTRUCTIONS MEDICATIONS ADMINISTERED No Known Medications [...] History Surgery(s)/Childbirth(s) Hospitalization History Chest pain - [facility] 06/19/17 Hospitalization History pneumonia, sepsis, hypoxia, uTI, sarcoidosis - [facility] 07/01/17
--- OUTSIDE RECORDS SUMMARY | 2018-11-25 22:21 | XMS REPORT ---
Author Author SHARIFA BULLOCK Organization [facility] Address [address] 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 Active 886320397 Problem Urge incontinence of urine N39.41 Active 58013332 Problem Major depression, chronic F34.1 Active 752928323 Problem Reflux esophagitis K21.0 Active 372277691 Problem Essential hypertension I10 Active 18213375 Problem History of anal cancer Z85.048 Active 233587786593989 Problem 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 Active [id number] ALLERGIES No Information ENCOUNTERS Encounter Location Date Diagnosis [facility] [id number] [place] [address] 30457- 2410 Jan, [facility] [address] [place] [place] [id number] [place] [address] 75384- 3171 18 Jan, 2018 Sarcoidosis of lung D86.0 ; 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 and 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 [facility] [id number] [place] [address] 42877- 5643 Jan, [facility] [id number] [place] [address] 30999- 3788 Jan, Sarcoidosis of lung D86.0 [facility] [id number] [place] [address] 86602- 5713 Nov, Medicare annual wellness visit, initial Z00.00 ; Morbid ( severe) obesity due to excess calories E66.01 ; Sarcoidosis of lung D86.0 ; 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 ; Essential hypertension I10 ; Reflux esophagitis K21.0 ; History of anal cancer Z85.048 ; 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 ; Major depression, chronic F34.1 ; Screening for osteoporosis Z13.820 and BMI 50.0-59.9, adult Z68.43 [place] [address] [address]- [address] Nov, Sarcoidosis of lung D86.0 [place] [address] 9[address]- 9714 Nov, Sarcoidosis of lung D86.0 [place] [address] 22429- 0682 Oct, Urge incontinence of urine N39.41 ; Sarcoidosis of lung D86.0 ; History of anal cancer Z85.048 ; Dermatitis L30.9 and BMI 50.0-59.9, adult Z68.43 [place] [address] 33[address]- 9501 Sep, [place] [address] 9[address]- 5808 Jul, Rash and nonspecific skin eruption R21 ; Skin change R23.9 ; Screening for breast cancer Z12.31 and BMI 50.0-59.9, adult Z68.43 [place] [address] [address]- [address] Jul, History of anal cancer Z85.048 ; Encounter for immunization Z23 ; Sarcoidosis of lung D86.0 ; Essential hypertension I10 and BMI 50.0-59.9, adult Z68.43 [place] [address] 9[address]- 3423 Jul, [place] [address] [address]- 8658 Jun, [address] [place] [address] 14 Jun, 2017 Atypical chest pain R07.89 ; Body mass index (BMI) of 50- 59.9 in adult Z68.43 ; Morbid (severe) obesity due to excess calories E66.01 ; Elevated LFTs R79.89 ; Reflux esophagitis K21.0 and 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 [facility] [id number] [place] [address] 26815- 9558 Jun, [facility] [id number] [place] [address] 87142 -1457 May, Acute exacerbation of chronic obstructive pulmonary disease (COPD) J44.1 [place] [address] 43677- 3099 May, [facility] [address] 35068- 0[address] May, Chronic hepatitis C without hepatic coma B18.2 [place] [address] 87714- 3657 May, Chronic hepatitis C without hepatic coma B18.2 [place] [id number] [place] [address] 25845- 9906 Apr, Chronic hepatitis C without hepatic coma B18.2 ; 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 ; Sarcoidosis of lung D86.0 ; Screening for diabetes mellitus (DM) Z13.1 ; Screening for lipid disorders Z13.220 ; Essential hypertension I10 ; Body mass index (BMI) of 50-59.9 in adult Z68.43 ; Morbid (severe) obesity due to excess calories E66.01 and Nasal congestion R09.81 [facility] [id number] [place] [address] 71536- 1688 Apr, IMMUNIZATIONS No Known Immunizations SOCIAL HISTORY Never Assessed REASON FOR VISIT Depends rx PLAN OF CARE VITAL SIGNS MEDICATIONS Unknown [...] History hepatitis C - successfully treated in [place] Medical History chronic obstructive pulmonary disease (COPD) Surgical History trachiotomy 2003 Surgical History [place] Hospitalization History Surgery(s)/Childbirth(s) Hospitalization History Chest pain - [facility] 06/19/17 Hospitalization History pneumonia, sepsis, hypoxia, uTI, sarcoidosis - [facility] 07/01/17
--- OUTSIDE RECORDS SUMMARY | 2018-11-25 22:21 | XMS REPORT ---
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 Active 477239892 Problem Urge incontinence of urine N39.41 Active 37334779 Problem Major depression, chronic F34.1 Active 476832141 Problem Reflux esophagitis K21.0 Active 667382933 Problem Essential hypertension I10 Active 94465631 Problem History of anal cancer Z85.048 Active 825183391295207 Problem 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 Active 227044940534 ALLERGIES No Known Allergies ENCOUNTERS Encounter Location Date Diagnosis [place] [id number] [address] Feb, [facility] [id number] [place] [address] 14304- 5634 Jan, [facility] [address] [address]- [address] Jan, Sarcoidosis of lung D86.0 ; 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1 ; Screening for osteoporosis Z13.820 and BMI 50.0-59.9, adult Z68.43 [place] [address] 20104- 1013 Nov, Sarcoidosis of lung D86.0 [place] [address] 34924- 8181 Nov, Sarcoidosis of lung D86.[address] 9[address]62- 3968 Oct, Urge incontinence of urine N39.41 ; Sarcoidosis of lung D86.0 ; History of anal cancer Z85.048 ; Dermatitis L30.9 and BMI 50.0-59.9, adult Z68.[address] 8[address]79- 5220 Sep, [place] [address] 90442- 2518 Jul, Rash and nonspecific skin eruption R21 ; Skin change R23.9 ; Screening for breast cancer Z12.31 and BMI 50.0-59.9, adult Z68.[address] [address]- [address]80 20 Jul, 2017 History of anal cancer Z85.048 ; Encounter for immunization Z23 ; Sarcoidosis of lung D86.0 ; Essential hypertension I10 and BMI 50.0-59.9, adult Z68.[address] 0[address]- 2783 Jul, [facility] [address] [place] [address] 96914- 6429 Jun, [place] [id number] [place] [address] 77391- 3680 Jun, Atypical chest pain R07.89 ; Body mass index (BMI) of 50- 59.9 in adult Z68.43 ; Morbid (severe) obesity due to excess calories E66.01 ; Elevated LFTs R79.89 ; Reflux esophagitis K21.0 and 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 [place] [id number] [place] [address] 07112- 5566 Jun, [facility] [address] [place] [id number] [place] [address] 81589 -3408 May, Acute exacerbation of chronic obstructive pulmonary disease (COPD) J44.1 [place] [id number] [place] [address] 83127- 1712 May, [place] [id number] [place] [address] 32470- 2534 May, Chronic hepatitis C without hepatic coma B18.2 [place] [id number] [place] [address] 95151- 5230 May, Chronic hepatitis C without hepatic coma B18.2 [address] [place] [address] 28638- 2102 Apr, Chronic hepatitis C without hepatic coma B18.2 ; 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 ; Sarcoidosis of lung D86.0 ; Screening for diabetes mellitus (DM) Z13.1 ; Screening for lipid disorders Z13.220 ; Essential hypertension I10 ; Body mass index (BMI) of 50-59.9 in adult Z68.43 ; Morbid (severe) obesity due to excess calories E66.01 and Nasal congestion R09.81 [address] [place] [address] 72754- 4761 Apr, IMMUNIZATIONS No Known Immunizations SOCIAL HISTORY Never Assessed REASON FOR VISIT ER f/u-VC -- mzaldana, ma PLAN OF CARE Activity Details Follow Up 4 Weeks with PCP [place] Reason: VITAL SIGNS Height 5'7" in 2017-06-21 Weight 333.0 lbs 2017-06-21 Temperature 97.8 degrees Fahrenheit 2017-06-21 Heart Rate 125 bpm 2017-06-21 Respiratory Rate 24 2017-06-21 Oximetry 92 % 2017-06-21 BMI 52.15 kg/m2 2017-06-21 Blood pressure systolic 117 mmHg 2017-06-21 Blood pressure diastolic 83 mmHg 2017-06-21 MEDICATIONS Medication Instructions Dosage Frequency Start Date End Date Duration Status Fluticasone Propionate 50 MCG/ACT Nasally Once a day 1 spray in each nostril 24h Active Albuterol Sulfate (2.5 MG/3ML) 0.083% Inhalation Three times a day 3 ml 8h Active Omeprazole 20 mg Orally Once a day 1 capsule 24h Jun, 30 day(s ) Active Spiriva HandiHaler 18 MCG Inhalation Once a day 1 capsule 24h Active Escitalopram Oxalate 20 MG Orally Once a day 0.5 tablet 24h Active Ranitidine HCl 150 MG Orally twice a day 1 tablet at bedtime 12h Active Cyclobenzaprine HCl 5 mg Orally PRN 1 tablet as needed Active Potassium Bicarb-Citric Acid 10 MEQ Orally Once a day 1 tablet 24h Active Lasix 20 MG Orally Once a day 1 tablet 24h Active Hydrochlorothiazide 25 MG Orally Once a day 1 tablet in the morning 24h Active RESULTS Name Result Date Reference Range Ultrasound : Abdomen, LIMITED (specify organ) 2017-07-12 PROCEDURES Procedure Date Ordered Result Body Site MEASURE BLOOD OXYGEN LEVEL Jun 21, 2017 [facility] VISIT ESTABLISHED PATIENT Jun 21, 2017 INSTRUCTIONS MEDICATIONS ADMINISTERED No Known Medications [...] History pneumonia, sepsis, hypoxia, uTI, sarcoidosis - [facility] 07/01/17
--- OUTSIDE RECORDS SUMMARY | 2018-11-25 22:22 | XMS REPORT | Continuity of Care Document ---
Author Organization Unknown Address Unknown Allergies There is no data. Medications There is no data. Problems There is no data. Procedures There is no data. Results Test Result Range HEPATITIS PROFILE - 05/04/17 10:31 Hep A Ab, IgM Negative Negative HBsAg Screen Negative Negative Hep B Core Ab, IgM Negative Negative Hep C Virus Ab 10.1 s/co ratio 0.0-0.9 TSH - 06/15/18 13:14 TSH 3.12 mIU/L NRG Encounters ACCT No. Visit Date/Time Discharge Status Pt. Type Provider Facility Loc./Unit Complaint [id number] 11/22/2018 10:00:00 11/22/2018 23:59:59 [facility] Outpatient PARDEEP DOWD, SHARIFA Frausto [facility] [id number] 06/15/2018 13:00:00 Document Registration [id number] 05/04/2017 09:20:00 Document Registration
--- OUTSIDE RECORDS SUMMARY | 2018-11-25 22:22 | XMS REPORT ---
Author Author SHARIFA BULLOCK Organization [facility] Address [address] 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 Active 519700102 Problem Urge incontinence of urine N39.41 Active 47013999 Problem Major depression, chronic F34.1 Active 187881624 Problem Reflux esophagitis K21.0 Active 661169416 Problem Essential hypertension I10 Active 08604640 Problem History of anal cancer Z85.048 Active 310568870769616 Problem 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 Active 280697661590 ALLERGIES No Known Allergies ENCOUNTERS Encounter Location Date Diagnosis [facility] [address] [place] [address] 40802- [address]90 Jan, [facility] [id number] [place] [address] 83212- 6349 18 Jan, 2018 [facility] [id number] [place] [address] 14056- 6864 Jan, [facility] [id number] [place] [address] 71188- 5895 Jan, Sarcoidosis of lung D86.0 [facility] [id number] [place] [address] 42112- 2123 Nov, Medicare annual wellness visit, initial Z00.00 ; Morbid ( severe) obesity due to excess calories E66.01 ; Sarcoidosis of lung D86.0 ; 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 ; Essential hypertension I10 ; Reflux esophagitis K21.0 ; History of anal cancer Z85.048 ; 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 ; Major depression, chronic F34.1 ; Screening for osteoporosis Z13.820 and BMI 50.0-59.9, adult Z68.43 [place] [address] [id number] [place] [address] 62783- 3658 Nov, Sarcoidosis of lung D86.0 [place] [address] [address]246- [address] Nov, Sarcoidosis of lung D86.[address] [address]- [address] Oct, Urge incontinence of urine N39.41 ; Sarcoidosis of lung D86.0 ; History of anal cancer Z85.048 ; Dermatitis L30.9 and BMI 50.0-59.9, adult Z68.43 [place] [address] [address]- [address] Sep, [place] [address] 25901- 9504 Jul, Rash and nonspecific skin eruption R21 ; Skin change R23.9 ; Screening for breast cancer Z12.31 and BMI 50.0-59.9, adult Z68.43 [place] [address] [id number] [place] [address] 87330- 3199 20 Jul, 2017 History of anal cancer Z85.048 ; Encounter for immunization Z23 ; Sarcoidosis of lung D86.0 ; Essential hypertension I10 and BMI 50.0-59.9, adult Z68.43 [place] [address] 72052- 9478 Jul, [place] [address] 9[address]09- 3323 30 Jun, 2017 [place] [address] 45[address]- 3010 14 Jun, 2017 Atypical chest pain R07.89 ; Body mass index (BMI) of 50- 59.9 in adult Z68.43 ; Morbid (severe) obesity due to excess calories E66.01 ; Elevated LFTs R79.89 ; Reflux esophagitis K21.0 and 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 [facility] [address] [place] [address] 58455- 9802 Jun, [facility] [address] [id number] [place] [address] 16893 -7531 May, Acute exacerbation of chronic obstructive pulmonary disease (COPD) J44.1 [facility] [address] [id number] [place] [address] 91004- 7411 May, [place] [address] [place] [id number] [place] [address] 03366- 5136 May, Chronic hepatitis C without hepatic coma B18.2 [place] [address] [id number] [place] [address] 08806- 6193 May, Chronic hepatitis C without hepatic coma B18.2 [facility] [address] [id number] [place] [address] 58161- 1443 Apr, Chronic hepatitis C without hepatic coma B18.2 ; 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 ; Sarcoidosis of lung D86.0 ; Screening for diabetes mellitus (DM) Z13.1 ; Screening for lipid disorders Z13.220 ; Essential hypertension I10 ; Body mass index (BMI) of 50-59.9 in adult Z68.43 ; Morbid (severe) obesity due to excess calories E66.01 and Nasal congestion R09.81 [facility] [address] [place] [address] 35357- 0807 Apr, IMMUNIZATIONS Vaccine Route Administration Date Status PPSV23 (PNEUMOVAX) IM Intramuscular Jul 27, 2017 Administered SOCIAL HISTORY Never Assessed REASON FOR VISIT Establish Care----DBennettRN PLAN OF CARE Activity Details Follow Up 3 Months Reason:sarcoidosis VITAL SIGNS Height 5'7" in 2017-07-27 Weight 336 lbs 2017-07-27 Temperature 98.7 degrees Fahrenheit 2017-07-27 Heart Rate 90 bpm 2017-07-27 Respiratory Rate 24 2017-07-27 Oximetry w/ oxygen @ 3L:95 % 2017-07-27 BMI 52.62 kg/m2 2017-07-27 Blood pressure systolic 104 mmHg 2017-07-27 Blood pressure diastolic 70 mmHg 2017-07-27 MEDICATIONS Medication Instructions Dosage Frequency Start Date [...] capsule 24h Jun, 30 day(s ) Not-Taking Cyclobenzaprine HCl 5 mg Orally PRN 1 tablet as needed Active Albuterol Sulfate (2.5 MG/3ML) 0.083% Inhalation Three times a day 3 ml 8h Active Potassium Bicarb-Citric Acid 10 MEQ Orally Once a day 1 tablet 24h Active Spiriva HandiHaler 18 MCG Inhalation Once a day 1 capsule 24h Not- Taking Fluticasone Propionate 50 MCG/ACT Nasally Once a day 1 spray in each nostril 24h Active RESULTS No Results PROCEDURES Procedure Date Ordered Result Body Site MEASURE BLOOD OXYGEN LEVEL Jul 27, 2017 PPSV23 (PNEUMOVAX) Jul 27, 2017 SINGLE IMMUNIZATION ADMIN Jul 27, 2017 ADMN PNEUMCOC VAC NO FEE DAY Jul 27, 2017 [facility] VISIT ESTABLISHED PATIENT Jul 27, 2017 INSTRUCTIONS MEDICATIONS ADMINISTERED No Known Medications [...] History hepatitis C - successfully treated in [place] Medical History chronic obstructive pulmonary disease (COPD) Surgical History trachiotomy 2003 Surgical History [place] Hospitalization History Surgery(s)/Childbirth(s) Hospitalization History Chest pain - [facility] 06/19/17 Hospitalization History pneumonia, sepsis, hypoxia, uTI, sarcoidosis - [facility] 07/01/17
--- OUTSIDE RECORDS SUMMARY | 2018-11-25 22:22 | XMS REPORT ---
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 Active 593267233 Problem Urge incontinence of urine N39.41 Active 11866846 Problem Major depression, chronic F34.1 Active 194476603 Problem Reflux esophagitis K21.0 Active 936846076 Problem Essential hypertension I10 Active 51770457 Problem History of anal cancer Z85.048 Active 680572610583759 Problem 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 Active [id number] ALLERGIES No Known Allergies ENCOUNTERS Encounter Location Date Diagnosis [facility] [address] [place] [address] Nov, Medicare annual wellness visit, initial Z00.00 ; Morbid ( severe) obesity due to excess calories E66.01 ; Sarcoidosis of lung D86.0 ; 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 ; Essential hypertension I10 ; Reflux esophagitis K21.0 ; History of anal cancer Z85.048 ; 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 ; Major depression, chronic F34.1 ; Screening for osteoporosis Z13.820 and BMI 50.0-59.9, adult Z68.43 [facility] [id number] [address] Nov, Sarcoidosis of lung D86.0 [facility] [id number] [place] [address] Nov, Sarcoidosis of lung D86.0 [place] [address] [address] Oct, Urge incontinence of urine N39.41 ; Sarcoidosis of lung D86.0 ; History of anal cancer Z85.048 ; Dermatitis L30.9 and BMI 50.0-59.9, adult Z68.43 [place] [address] [address] Sep, [facility] [address] [address] Jul, Rash and nonspecific skin eruption R21 ; Skin change R23.9 ; Screening for breast cancer Z12.31 and BMI 50.0-59.9, adult Z68.43 [place] [address] [address] 20 Jul, 2017 History of anal cancer Z85.048 ; Encounter for immunization Z23 ; Sarcoidosis of lung D86.0 ; Essential hypertension I10 and BMI 50.0-59.9, adult Z68.43 [place] [address] [address] 05 Jul, 2017 [place] [address] [address] 30 Jun, 2017 [place] [address] [address] 14 Jun, 2017 Atypical chest pain R07.89 ; Body mass index (BMI) of 50- 59.9 in adult Z68.43 ; Morbid (severe) obesity due to excess calories E66.01 ; Elevated LFTs R79.89 ; Reflux esophagitis K21.0 and 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 [place] [address] [address] 13 Jun, 2017 [facility] IN [facility] [address] [address] May, Acute exacerbation of chronic obstructive pulmonary disease (COPD) J44.1 [place] [address] [address] [facility] [id number] [address] May, [place] [id number] [address] May, Chronic hepatitis C without hepatic coma B18.2 [place] [id number], [place] [address] May, Chronic hepatitis C without hepatic coma B18.2 [place] [address] [address] [facility] [id number], [place] [address] Apr, Chronic hepatitis C without hepatic coma B18.2 ; 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 States she is coughing up green phlegm which usually indicates an infection in her trach. , Also reports chest pain that happens periodically denies any now. FROYLAN Antonio PLAN OF CARE Activity Details Follow Up prn Reason: VITAL SIGNS Height 5'7" in 2017-05-27 Weight 333 lbs 2017-05-27 Temperature 97.6 degrees Fahrenheit 2017-05-27 Heart Rate 104 bpm 2017-05-27 Respiratory Rate 24 2017-05-27 Oximetry 95 % 2017-05-27 BMI 52.15 kg/m2 2017-05-27 Blood pressure systolic 104 mmHg 2017-05-27 Blood pressure diastolic 78 mmHg 2017-05-27 MEDICATIONS Medication Instructions Dosage Frequency Start Date End Date Duration Status Ranitidine HCl 150 MG Orally twice a day 1 tablet at bedtime 12h Active Hydrochlorothiazide 25 MG Orally Once a day 1 tablet in the morning 24h Active Lasix 20 MG Orally Once a day 1 tablet 24h Active Cyclobenzaprine HCl 5 mg Orally PRN 1 tablet as needed Active Escitalopram Oxalate 20 MG Orally Once a day 0.5 tablet 24h Active PredniSONE 20 MG Orally Once a day 2 tablet 24h May, May, 5 days Active Albuterol Sulfate (2.5 MG/3ML) 0.083% Inhalation Three times a day 3 ml 8h Active Spiriva HandiHaler 18 MCG Inhalation Once a day 1 capsule 24h Active Doxycycline Monohydrate 100 MG Orally every 12 hrs 1 capsule 12h May, May, 7 days Active Potassium Bicarb-Citric Acid 10 MEQ Orally Once a day 1 tablet 24h Active Fluticasone Propionate 50 MCG/ACT Nasally Once a day 1 spray in each nostril 24h Active RESULTS No Results PROCEDURES Procedure Date Ordered Result Body Site MEASURE BLOOD OXYGEN LEVEL May 27, 2017 [facility] VISIT ESTABLISHED PATIENT May 27, 2017 INSTRUCTIONS MEDICATIONS ADMINISTERED No Known [...] History hepatitis C - successfully treated in [place] Medical History chronic obstructive pulmonary disease (COPD) Surgical History trachiotomy 2003 Surgical History Port a cath Hospitalization History Surgery(s)/Childbirth(s) Hospitalization History Chest pain - [facility] 06/19/17 Hospitalization History pneumonia, sepsis, hypoxia, uTI, sarcoidosis - [facility] 07/01/17
--- OUTSIDE RECORDS SUMMARY | 2018-11-25 22:22 | XMS REPORT ---
Author Author SHARIFA BULLOCK Organization [facility] [place] Address [address] 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 Active 285895820 Problem Urge incontinence of urine N39.41 Active 68405426 Problem Major depression, chronic F34.1 Active 497110243 Problem Reflux esophagitis K21.0 Active 220422458 Problem Essential hypertension I10 Active 23790597 Problem History of anal cancer Z85.048 Active 665844805431674 Problem 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 Active 220054757231 ALLERGIES No Information ENCOUNTERS Encounter Location Date Diagnosis [place] [address] [place] [address] Jan, [facility] [place] [address] [place] [address] Jan, [place] [address] [place] [id number] [place] [address] Jan, [place] [address] [place] [id number] [place] [address] Nov, Medicare annual wellness visit, initial Z00.00 ; Morbid ( severe) obesity due to excess calories E66.01 ; Sarcoidosis of lung D86.0 ; 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 ; Essential hypertension I10 ; Reflux esophagitis K21.0 ; History of anal cancer Z85.048 ; 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 ; Major depression, chronic F34.1 ; Screening for osteoporosis Z13.820 and BMI 50.0-59.9, adult Z68.43 [place] [address] [address] Nov, Sarcoidosis of lung D86.0 [place] [address] [address] Nov, Sarcoidosis of lung D86.[address] [address] Oct, Urge incontinence of urine N39.41 ; Sarcoidosis of lung D86.0 ; History of anal cancer Z85.048 ; Dermatitis L30.9 and BMI 50.0-59.9, adult Z68.43 [place] [address] [address] Sep, [address] [address] Jul, Rash and nonspecific skin eruption R21 ; Skin change R23.9 ; Screening for breast cancer Z12.31 and BMI 50.0-59.9, adult Z68.[address] [address] Jul, History of anal cancer Z85.048 ; Encounter for immunization Z23 ; Sarcoidosis of lung D86.0 ; Essential hypertension I10 and BMI 50.0-59.9, adult Z68.43 [place] [address] [address] Jul, [place] [address] [address] Jun, [address] [address] 14 Jun, 2017 Atypical chest pain R07.89 ; Body mass index (BMI) of 50- 59.9 in adult Z68.43 ; Morbid (severe) obesity due to excess calories E66.01 ; Elevated LFTs R79.89 ; Reflux esophagitis K21.0 and 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 [facility] [address] [place] [address] Jun, [facility] IN [facility] [address] [place] [address] May, Acute exacerbation of chronic obstructive pulmonary disease (COPD) J44.1 [facility] [id number] [place] [address] May, [facility] [place] [address] [id number] [place] [address] May, Chronic hepatitis C without hepatic coma B18.2 [place] [address] [id number] [place] [address] May, Chronic hepatitis C without hepatic coma B18.2 [facility] [place] [id number] [place] [address] Apr, Chronic hepatitis C without hepatic coma B18.2 ; 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 ; Sarcoidosis of lung D86.0 ; Screening for diabetes mellitus (DM) Z13.1 ; Screening for lipid disorders Z13.220 ; Essential hypertension I10 ; Body mass index (BMI) of 50-59.9 in adult Z68.43 ; Morbid (severe) obesity due to excess calories E66.01 and Nasal congestion R09.81 [facility] [place] [address] [place] [address] Apr, IMMUNIZATIONS No Known Immunizations SOCIAL HISTORY Never Assessed REASON FOR VISIT PLAN OF CARE VITAL SIGNS MEDICATIONS Unknown [...] History hepatitis C - successfully treated in [place] Medical History chronic obstructive pulmonary disease (COPD) Surgical History trachiotomy 2003 Surgical History Port a cath Hospitalization History Surgery(s)/Childbirth(s) Hospitalization History Chest pain - [facility] 06/19/17 Hospitalization History pneumonia, sepsis, hypoxia, uTI, sarcoidosis - [facility] 07/01/17
--- OUTSIDE RECORDS SUMMARY | 2018-11-25 22:22 | XMS REPORT ---
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 Active 820281522 Problem Urge incontinence of urine N39.41 Active 55513897 Problem Major depression, chronic F34.1 Active 123878329 Problem Reflux esophagitis K21.0 Active 057685083 Problem Essential hypertension I10 Active 82588727 Problem History of anal cancer Z85.048 Active 427231274520578 Problem 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 Active 877390287188 ALLERGIES No Known Allergies ENCOUNTERS Encounter Location Date Diagnosis [facility] [address] [place] [address] Nov, Medicare annual wellness visit, initial Z00.00 ; Morbid ( severe) obesity due to excess calories E66.01 ; Sarcoidosis of lung D86.0 ; 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 ; Essential hypertension I10 ; Reflux esophagitis K21.0 ; History of anal cancer Z85.048 ; 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 ; Major depression, chronic F34.1 ; Screening for osteoporosis Z13.820 and BMI 50.0-59.9, adult Z68.43 [facility] [id number] [place] [address] Nov, Sarcoidosis of lung D86.0 [facility] [id number] [place] [address] Nov, Sarcoidosis of lung D86.0 [facility] [address] [address] Oct, Urge incontinence of urine N39.41 ; Sarcoidosis of lung D86.0 ; History of anal cancer Z85.048 ; Dermatitis L30.9 and BMI 50.0-59.9, adult Z68.43 [place] [address] [address] Sep, [facility] [address] [address] 29 Jul, 2017 Rash and nonspecific skin eruption R21 ; Skin change R23.9 ; Screening for breast cancer Z12.31 and BMI 50.0-59.9, adult Z68.43 [place] [address] [address] 20 Jul, 2017 History of anal cancer Z85.048 ; Encounter for immunization Z23 ; Sarcoidosis of lung D86.0 ; Essential hypertension I10 and BMI 50.0-59.9, adult Z68.43 [place] [address] [address] 05 Jul, 2017 [place] [address] [address] 30 Jun, 2017 [place] [address] [address] 14 Jun, 2017 Atypical chest pain R07.89 ; Body mass index (BMI) of 50- 59.9 in adult Z68.43 ; Morbid (severe) obesity due to excess calories E66.01 ; Elevated LFTs R79.89 ; Reflux esophagitis K21.0 and 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 [place] [address] [address] 13 Jun, 2017 [facility] [id number] [place] [address] May, Acute exacerbation of chronic obstructive pulmonary disease (COPD) J44.1 [place] [address] [facility] [id number] [address] May, [place] [address], [place] [address] May, Chronic hepatitis C without hepatic coma B18.2 [place] [address], [place] [address] May, Chronic hepatitis C without hepatic coma B18.2 [place] [address] [address] Apr, Chronic hepatitis C without hepatic coma B18.2 ; 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 ; Sarcoidosis of lung D86.0 ; Screening for diabetes mellitus (DM) Z13.1 ; Screening for lipid disorders Z13.220 ; Essential hypertension I10 ; Body mass index (BMI) of 50-59.9 in adult Z68.43 ; Morbid (severe) obesity due to excess calories E66.01 and Nasal congestion R09.81 [place] [address] [facility] [id number], [place] [address] Apr, IMMUNIZATIONS No Known Immunizations SOCIAL HISTORY Never Assessed REASON FOR VISIT Establish Care -- félix molina PLAN OF CARE Activity Details Follow Up 3 Months with Olya VASQUEZ Reason: VITAL SIGNS Height 5'7" in 2017-05-04 Weight 331.0 lbs 2017-05-04 Temperature 98.7 degrees Fahrenheit 2017-05-04 Heart Rate 108 bpm 2017-05-04 Respiratory Rate 2017-05-04 BMI 51.84 kg/m2 2017-05-04 Blood pressure systolic 121 mmHg 2017-05-04 Blood pressure diastolic 74 mmHg 2017-05-04 MEDICATIONS Medication Instructions Dosage Frequency Start Date End Date Duration Status Lasix 20 MG Orally Once a day 1 tablet 24h Active Ranitidine HCl 150 MG Orally twice a day 1 tablet at bedtime 12h Active Hydrochlorothiazide 25 MG Orally Once a day 1 tablet in the morning 24h Active Cyclobenzaprine HCl 5 mg Orally PRN 1 tablet as needed Active Augmentin 875-125 MG Orally every 12 hrs 1 tablet 12h Apr, May, 10 day(s) Active Spiriva HandiHaler 18 MCG Inhalation Once a day 1 capsule 24h Active Albuterol Sulfate (2.5 MG/3ML) 0.083% Inhalation Three times a day 3 ml 8h Active Escitalopram Oxalate 20 MG Orally Once a day 0.5 tablet 24h Active Fluticasone Propionate 50 MCG/ACT Nasally Once a day 1 spray in each nostril 24h Active Potassium Bicarb-Citric Acid 10 MEQ Orally Once a day 1 tablet 24h Active RESULTS Name Result Date Reference Range TSH W/ FREE T4 2017-05-04 TSH 3.210 0.450-4.500 T4,Free(Direct) 1.22 0.82-1.77 A1C 2017-05-04 Hemoglobin A1c 6.1 4.8-5.6 CBC 2017-05-04 WBC 4.8 3.4-10.8 RBC 5.13 3.77-5.28 Hemoglobin 14.0 11.1-15.9 Hematocrit 42.9 34.0-46.6 MCV 84 79-97 MCH 27.3 26.6-33.0 MCHC 32.6 31.5-35.7 RDW 14.5 12.3-15.4 Platelets 313 150-379 Neutrophils 53 Lymphs 34 Monocytes 7 Eos 5 Basos 1 Neutrophils (Absolute) 2.6 1.4-7.0 Lymphs (Absolute) 1.7 0.7-3.1 Monocytes(Absolute) 0.3 0.1-0.9 Eos (Absolute) 0.2 0.0-0.4 Baso (Absolute) 0.0 0.0-0.2 Immature Granulocytes 0 Immature Grans (Abs) 0.0 0.0-0.1 MICROALBUMIN/CREATININE RATIO, URINE 2017-05-04 Creatinine, Urine 312.2 Not Estab. Microalbumin, Urine 11.6 Not Estab. Microalb/Creat Ratio 3.7 0.0-30.0 LIPID PANEL 2017-05-04 Cholesterol, Total 221 100-199 Triglycerides 135 0-149 HDL Cholesterol 37 >39 VLDL Cholesterol Umer 27 5-40 LDL Cholesterol Calc 157 0-99 CMP 2017-05-04 Glucose, Serum 94 65-99 BUN 15 6-24 Creatinine, Serum 0.95 0.57-1.00 eGFR If NonAfricn Am 68 >59 eGFR If Africn Am 79 >59 BUN/Creatinine Ratio 16 9-23 Sodium, Serum 143 134-144 Potassium, Serum 3.4 3.5-5.2 Chloride, Serum 97 96-106 Carbon Dioxide, Total 26 18-29 Calcium, Serum 9.4 8.7-10.2 Protein, Total, Serum 8.2 6.0-8.5 Albumin, Serum 4.1 3.5-5.5 Globulin, Total 4.1 1.5-4.5 A/G Ratio 1.0 1.2-2.2 Bilirubin, Total 0.4 0.0-1.2 Alkaline Phosphatase, S 121 39-117 AST (SGOT) 18 0-40 ALT (SGPT) 13 0-32 HEPATITIS PROFILE 2017-05-04 Hep A Ab, IgM Negative Negative HBsAg Screen Negative Negative Hep B Core Ab, IgM Negative Negative Hep C Virus Ab 10.1 0.0-0.9 PROCEDURES Procedure Date Ordered Result Body Site MICROALBUMIN, QUANTITATIVE May 04, 2017 COMPLETE CBC W/AUTO DIFF WBC May 04, 2017 COMPREHEN METABOLIC PANEL May 04, 2017 VENIPUNCT, ROUTINE* May 04, 2017 ASSAY OF FREE THYROXINE May 04, 2017 ASSAY OF URINE CREATININE May 04, 2017 LIPID PANEL May 04, 2017 Hemoglobin Test Send Out 0 dollar May 04, 2017 ASSAY THYROID STIM HORMONE May 04, 2017 ACUTE HEPATITIS PANEL May 04, 2017 INSTRUCTIONS MEDICATIONS ADMINISTERED No Known Medications [...] History hepatitis C - successfully treated in [place] Medical History chronic obstructive pulmonary disease (COPD) Surgical History trachiotomy 2003 Surgical History Port a cath Hospitalization History Surgery(s)/Childbirth(s) Hospitalization History Chest pain - [facility] 06/19/17 Hospitalization History pneumonia, sepsis, hypoxia, uTI, sarcoidosis - [facility] 07/01/17
[2018-11-25] MEDS ORDERED: RT-ALBUTEROL SULF 2.5 MG/3 ML PRE-MIX VIAL ONE (22:29)
[2018-11-25] MEDS ORDERED: RT-ALBUTEROL SULF 2.5 MG/3 ML PRE-MIX VIAL INH STA (22:30)
[2018-11-25] MEDS ORDERED: ONDANSETRON 4 MG/2 ML (SDV) Z0FRAN IVP ONE (22:30)
[2018-11-25] MEDS ORDERED: KETOROLAC 30 MG/ML VIAL IVP STA (22:30)
--- NOTE | 2018-11-25 22:41 | ED General ---
General Chief Complaint: Respiratory Problems Stated Complaint: SOA Nursing Triage Note: PATIENT BROUGHT TO ER ROOM 5 VIA [facility] WITH COMPLAINT OF SHORTNESS OF BREATH THAT BEGAN YESTERDAY. PATIENT IS ALSO COMPLAINING OF A HEADACHE. PATIENT HAS A TRACHEOSTOMY AND WAS GIVEN A DUONEB BY EMS [facility]. PATIENT STATES SHE ALSO TOOK A BREATHING TREATMENT APPROXIMATELY 2 HOURS BEFORE CALLING EMS. PATIENT STATES SHE DOES WEAR OXYGEN AT HOME VIA TRACH MASK. Nursing Sepsis Screen: Possible Sepsis Risk Source of Information: Patient Exam Limitations: No Limitations History of Present Illness Date Seen by Provider: Nov 25, 2018 Time Seen by Provider: 22:26 Initial Comments Here with report of shortness of air and cough with fever over the last 24 hours. Does have tracheostomy in place due to history of tracheomalacia. She tried breathing treatment at home and that wasn't working. She describes overall chest tightness and pain. Complains of constipation but denies vomiting or diarrhea. Does have some nausea. EMS gave duo neb in route and that did help a little bit. Timing/Duration: 1-2 Days Severity: Moderate Modifying Factors: improves with Rest Associated Systoms: Chest Pain (overall tightness with breathing), Cough, Fever /Chills; No Headaches; Nausea/Vomiting; No Rash; Shortness of Air Allergies and Home Medications Allergies Coded Allergies: No Known Drug Allergies (Unverified , 06/18/17) Home Medications Diphenhydramine HCl 25 Mg Capsule, 25 MG PO HS PRN for ITCHING, (Reported) Escitalopram Oxalate 20 Mg Tablet, 20 MG PO DAILY PRN for ANXIETY, (Reported) Fluticasone Propionate 16 Gm [place].susp, 2 SPRAYS NSEACH HS PRN for ALLERGIES, ( Reported) Furosemide 20 Mg Tablet, 20 MG PO DAILY PRN for FLUID RETENTION, (Reported) TAKES FOR WEIGHT GAIN MORE THAN 8 POUNDS IN 3-4 DAYS Hydrochlorothiazide 25 Mg Tablet, 25 MG PO DAILY, (Reported) Levofloxacin 750 Mg Tablet, 750 MG PO DAILY Prescribed by: SHARIFA BULLOCK on 07/03/17 1620 Omeprazole 20 Mg Capsule.dr, 20 MG PO DAILY, (Reported) Potassium Chloride 10 Meq Capsule.er, 10 MEQ PO DAILY, (Reported) Prednisone 10 Mg Tab.ds.pk, 10 MG PO DAILY Take 6 tabs(60mg)daily,decrease by 1 tab(10mg)every other day. Prescribed by: SHARIFA BULLOCK on 07/03/17 1620 Prednisone 20 Mg Tab, 40 MG PO DAILY Prescribed by: TOM STACK on 11/26/18 0026 Patient Home Medication List Home Medication List Reviewed: Yes Review of Systems Review of Systems Constitutional: see HPI; No chills, No diaphoresis EENTM: nose congestion; No throat pain Respiratory: cough, short of breath, wheezing Cardiovascular: see HPI; No palpitations Gastrointestinal: see HPI Genitourinary: no symptoms reported Musculoskeletal: No back pain; muscle pain Skin: no symptoms reported Psychiatric/Neurological: No Symptoms Reported All Other Systems Reviewed Negative Unless Noted: Yes Past Melwnrv-Sjyjnx-Xqtpnr Hx Past Med/Social Hx: Reviewed Nursing Past Med/Soc Hx Patient Social History Alcohol Use: Denies Use Recreational Drug Use: No Drug of Choice: COCAINE Smoking Status: Never a Smoker Type Used: Cigarettes Former Smoker, Quit: December 10, 2003 2nd Hand Smoke Exposure: No Recent Foreign Travel: No Contact w/Someone Who Travel: No Recent Infectious Disease Expo: No Recent Hopitalizations: No Immunizations Up To Date PED Vaccines UTD: Yes Date of Influenza Vaccine: Jun 08, 2017 Seasonal Allergies Seasonal Allergies: No Past Medical History Surgeries: Yes (PORT RIGHT CHEST/REMOVED; ABSCESS I&D LEFT AXILLA; PERMANENT TRACHEOSTOMY) Tracheostomy Respiratory: Yes (PT HAS TRACH D/T SARCOIDOSIS, WEAR OXYGEN AT HOME) Asthma, Pneumonia, Chronic Bronchitis, COPD Currently Using CPAP: No Currently Using BIPAP: No Cardiac: Yes High Cholesterol, Hypertension 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 Genitourinary: No Gastrointestinal: Yes (hepatitis C treated with Harvoni in [id number]; ANAL CANCER--2011) Hepatitis Musculoskeletal: Yes (SARCOIDOSIS) Endocrine: Yes ("BORDERLINE DIABETIC"; MORBID OBESITY) HEENT: Yes (PERMANENT TRACH; EDENTULOUS) Cancer: Yes (RECTAL/ANAL CANCER IN 2011-NO SURGERY--TREATED WITH CHEMO + RADIATION) Rectal Did You Recieve Any Treatments: Yes What Type of Treatment Did You: Chemotherapy, Radiation Psychosocial: Yes Anxiety, Depression Integumentary: No Blood Disorders: No Adverse Reaction/Blood Tranf: No Family Medical History Reviewed Nursing Family Hx Patient reports no known family medical history. Hypertension, Lung Disease Physical Exam-Suspected Sepsis Physical Exam Vital Signs Vital Signs - First Documented 11/25/18 11/25/18 22:12 22:30 Temp 99.7 Pulse 97 Resp 24 B/P (MAP) 143/104 (117) Pulse Ox 99 O2 Delivery Trach Collar O2 Flow Rate 12.00 FiO2 28 Capillary Refill : Less Than 3 Seconds Blood Pressure Mean: 117 Height, Weight, BMI Height: 5'5.00" Weight: 335lbs. 0.4oz. 151.552056px; 53.4 BMI Method:Actual General Appearance: No Apparent Distress, WD/WN, Obese HEENT: PERRL/EOMI, Pharynx Normal Neck: Non Tender, Supple, Other (tracheostomy midline) Respiratory: Decreased Breath Sounds, Expiration, Wheezing Cardiovascular: Regular Rate, Rhythm, No Murmur Gastrointestinal: Non Tender, Soft Back: Normal Inspection, No CVA Tenderness, No Vertebral Tenderness Extremity: Normal Capillary Refill, Normal Range of Motion, Non Tender Neurologic/Psychiatric: Alert, Oriented x3 Skin: normal color, warm/dry Focused Exam Lactate Level 11/25/18 22:30: Lactic Acid Level 1.62 Lactic Acid Level Progress/Results/Core Measures Suspected Sepsis Recent Fever Within 48 Hours: Yes Infection Criteria Present: Suspected New Infection New/Unexplained Altered Menta: No Sepsis Screen: Possible Sepsis Risk SIRS Temperature:99.7 Pulse: 97 Respiratory Rate: 24 Laboratory Tests 11/25/18 22:30: White Blood Count 8.0 Blood Pressure 143 /104 Mean: 117 11/25/18 22:30: Lactic Acid Level 1.62 Laboratory Tests 11/25/18 22:30: Creatinine 1.02, INR Comment 0.9, Platelet Count 268, Total Bilirubin 0.8 Results/Orders Lab Results Laboratory Tests Test 11/25/18 22:30 Range/Units White Blood Count 8.0 4.3-11.0 10^3/uL Red Blood Count 4.80 4.35-5.85 10^6/uL Hemoglobin 13.0 11.5-16.0 G/DL Hematocrit 40 35-52 % Mean Corpuscular Volume 84 80-99 FL Mean Corpuscular Hemoglobin 27 25-34 PG Mean Corpuscular Hemoglobin Concent 32 32-36 G/DL Red Cell Distribution Width 15.4 H 10.0-14.5 % Platelet Count 268 130-400 10^3/uL Mean Platelet Volume 9.5 7.4-10.4 FL Neutrophils (%) (Auto) 67 42-75 % Lymphocytes (%) (Auto) 23 12-44 % Monocytes (%) (Auto) 8 0-12 % Eosinophils (%) (Auto) 2 0-10 % Basophils (%) (Auto) 0 0-10 % Neutrophils # (Auto) 5.4 1.8-7.8 X 10^3 Lymphocytes # (Auto) 1.8 1.0-4.0 X 10^3 Monocytes # (Auto) 0.6 0.0-1.0 X 10^3 Eosinophils # (Auto) 0.1 0.0-0.3 10^3/uL Basophils # (Auto) 0.0 0.0-0.1 10^3/uL Prothrombin Time 12.8 12.2-14.7 SEC INR Comment 0.9 0.8-1.4 Activated Partial Thromboplast Time 25 24-35 SEC Sodium Level 135 135-145 MMOL/L Potassium Level 3.8 3.6-5.0 MMOL/L Chloride Level 100 98-107 MMOL/L Carbon Dioxide Level 23 21-32 MMOL/L Anion Gap 12 5-14 MMOL/L Blood Urea Nitrogen 13 7-18 MG/DL Creatinine 1.02 0.60-1.30 MG/DL Estimat Glomerular Filtration Rate > 60 BUN/Creatinine Ratio 13 Glucose Level 105 70-105 MG/DL Lactic Acid Level 1.62 0.50-2.00 MMOL/L Calcium Level 9.5 8.5-10.1 MG/DL Corrected Calcium 9.4 8.5-10.1 MG/DL Total Bilirubin 0.8 0.1-1.0 MG/DL Aspartate Amino Transf (AST/SGOT) 20 5-34 U/L Alanine Aminotransferase (ALT/SGPT) 20 0-55 U/L Alkaline Phosphatase 111 40-136 U/L B-Type Natriuretic Peptide < 10.0 <100.0 PG/ML Total Protein 8.2 6.4-8.2 GM/DL Albumin 4.1 3.2-4.5 GM/DL Micro Results Microbiology 11/25/18 Influenza Types A,B Antigen (YAMILETH) - Final, Complete My Orders Orders - TOM STACK MD Ondansetron Injection (Zofran Injectio (11/25/18 22:30) Albuterol Pre-Mix Nebs (Rt) (Proventil (11/25/18 22:30) Ketorolac Injection (Toradol Injection) (11/25/18 22:30) Cbc With Automated Diff (11/25/18 22:30) Comprehensive Metabolic Panel (11/25/18 22:30) Blood Culture (11/25/18 22:30) Sputum Culture (11/25/18 22:30) Protime With Inr (11/25/18 22:30) Partial Thromboplastin Time (11/25/18 22:30) Chest 1 View, Ap/Pa Only (11/25/18 22:30) Ed Iv/Invasive Line Start (11/25/18 22:30) Vital Signs Adult Sepsis Patie Q15M (11/25/18 22:30) O2 (11/25/18 22:30) Remove Rings In Anticipation O (11/25/18:30) Lactic Acid Analyzer (11/25/18 22:30) Influenza A And B Antigens (11/25/18 22:30) Svn Small Volume Nebulizer (11/25/18 22:30) BNP (11/25/18 23:04) Fentanyl Injection (Sublimaze Injection (11/25/18 23:24) Methylprednisolone Sod Succ (Solu-Medrol (11/25/18 23:24) Prednisone Tablet (Deltasone Tablet) (11/26/18 00:30) Medications Given in ED Current Medications Medications Dose Ordered Sig/Sandra Route Start Time Stop Time Status Last Admin Dose Admin Ondansetron HCl 4 mg ONCE ONCE IVP 11/25/18 22:30 11/25/18 22:32 DC 11/25/18 22:38 4 MG Prednisone 40 mg ONCE ONCE PO 11/26/18 00:30 11/26/18 00:31 DC 11/26/18 00:36 40 MG Vital Signs/I&O 11/25/18 11/25/18 11/25/18 11/26/18 22:12 22:30 22:48 00:42 Temp 99.7 99.7 Pulse 97 89 86 Resp 24 18 18 B/P (MAP) 143/104 (117) 129/97 (108) 132/85 (101) Pulse Ox 99 98 99 98 O2 Delivery Trach Collar Trach Collar Trach Collar O2 Flow Rate 12.00 10.00 FiO2 28 Capillary Refill : Less Than 3 Seconds Blood Pressure Mean: 117 Progress Note : Progress Note Seen and evaluated. Sepsis order set initiated. Albuterol neb 3 ordered. Zofran 4 mg IV ordered. Monitor patient. 2345: Better after nebs. She did receive Solu-Medrol 125 mg IV. Fentanyl 50 g IV. Return for headache. BNP added after looking chest x-ray. Monitor patient. 0022: Headache is improved. Overall no acute findings for pneumonia or other significant findings. Likely COPD exacerbation in the setting of viral upper respiratory infection. She will need steroids for a few days and I will write a prescription that. She will take it to her doctor on Tuesday. We will initiate prednisone 40 mg by mouth now. She has a few doses of prednisone at home if needed until she can get prescription verified by her doctor. She is due to see Dr. Diaz on Tuesday morning. Discharged home with return precautions. Patient verbalize understanding instructions and agreement with plan. Departure Impression Primary Impression: Upper respiratory infection, viral Additional Impression: COPD exacerbation Disposition: HOME, SELF-CARE Condition: Improved Departure-Patient Inst. Decision time for Depature: 00:24 Referrals: SHARIFA BULLOCK MD (PCP/Family) Primary Care Physician Patient Instructions: Exacerbation of COPD (DC), Viral Upper Respiratory Infection, Adult (DC) Add. Discharge Instructions: All discharge instructions reviewed with patient and/or family. Voiced understanding. Continue home medications as previously prescribed. Initiate new medications as prescribed. Follow-up with your doctor on Tuesday as scheduled.You may take ibuprofen 600 mg every 8 hours as needed for pain or fever. You may also take Tylenol/acetaminophen 1000 mg every 8 hours as needed for pain or fever. Return for worse pain, fever, vomiting, weakness, breathing problems or other concerns as needed. Scripts Prednisone (Prednisone) 20 Mg Tab 40 MG PO DAILY, #8 TAB 0 Refills Prov: TOM STACK MD 11/26/18 Copy Copies To 1: SHARIFA BULLOCK MD, TIMOTHY D MD Nov 25, 2018 22:41
[2018-11-25 22:48] VITALS: BP 129/97
[2018-11-25 22:49] LABS: BASOPHILS % (AUTO) 0 % (0-10); EOSINOPHILS # (AUTO) 0.1 10^3/uL (0.0-0.3); EOSINOPHILS % (AUTO) 2 % (0-10); HEMATOCRIT 40 % (35-52); LYMPHOCYTES # (AUTO) 1.8 X 10^3 (1.0-4.0); LYMPHOCYTES % (AUTO) 23 % (12-44); MEAN CORPUSCULAR HEMOGLOBIN 27 PG (25-34); MEAN CORPUSCULAR HGB CONC 32 G/DL (32-36); MEAN CORPUSCULAR VOLUME 84 FL (80-99); MEAN PLATELET VOLUME 9.5 FL (7.4-10.4); MONOCYTES # (AUTO) 0.6 X 10^3 (0.0-1.0); MONOCYTES % (AUTO) 8 % (0-12); NEUTROPHILS # (AUTO) 5.4 X 10^3 (1.8-7.8); NEUTROPHILS % (AUTO) 67 % (42-75); PLATELET COUNT 268 10^3/uL (130-400); RED CELL DISTRIBUTION WIDTH 15.4 % (10.0-14.5)
[2018-11-25 23:00] LABS: INR 0.9 (0.8-1.4); PROTHROMBIN TIME PATIENT 12.8 SEC (12.2-14.7)
[2018-11-25 23:08] LABS: BUN/CREATININE RATIO 13; CARBON DIOXIDE 23 MMOL/L (21-32); CHLORIDE 100 MMOL/L (98-107); CREATININE SERUM 1.02 MG/DL (0.60-1.30); POTASSIUM 3.8 MMOL/L (3.6-5.0); SODIUM 135 MMOL/L (135-145)
[2018-11-25 23:09] LABS: ALANINE AMINOTRANSFERASE 20 U/L (0-55); ALBUMIN 4.1 GM/DL (3.2-4.5); ALKALINE PHOSPHATASE 111 U/L (40-136); BILIRUBIN,TOTAL 0.8 MG/DL (0.1-1.0); CALCIUM 9.5 MG/DL (8.5-10.1); GFR ESTIMATED > 60; GLUCOSE 105 MG/DL (70-105); TOTAL PROTEIN 8.2 GM/DL (6.4-8.2)
[2018-11-25] MEDS ORDERED: fentaNYL INJECTION 100 MCG/2 ML AMP IVP STA (23:24)
[2018-11-25] MEDS ORDERED: methylPREDNISolone 125 MG (Solu-MEDROL) VIAL IV STA (23:24)
[2018-11-26] MEDS ORDERED: PRD20T PO (00:26)
[2018-11-26] MEDS ORDERED: predniSONE 20 MG TAB PO ONE (00:30)
[2018-11-26 00:42] VITALS: BP 132/85
--- NOTE | 2018-11-26 01:00 | NUR ---
Cab services called for the patient, RT will be setting up the patient to go home on oxygen.
--- NOTE | 2018-11-26 08:36 | Diagnostic Imaging Report ---
INDICATION: Shortness of breath. COMPARISON: 08/17/2017 FINDINGS: There is cardiomegaly. There is no pleural effusion or pneumothorax. The mediastinum is unremarkable. Tracheostomy tube is in place. IMPRESSION: 1. No acute cardiopulmonary abnormality. 2. Mild cardiomegaly. Dictated by: Dictated on workstation # [id number]
== END 2018-11-26 01:37 | disposition home or self-care (01) ==
LOC: EDUNIT# 22:12 → ER 22:13
DX: J06.9 Acute upper respiratory infection, unspecified (principal); J44.1 Chronic obstructive pulmonary disease with (acute) exacerbation; Q32.0 Congenital tracheomalacia; E78.00 Pure hypercholesterolemia, unspecified; B19.20 Unspecified viral hepatitis C without hepatic coma; E66.01 Morbid (severe) obesity due to excess calories; D86.9 Sarcoidosis, unspecified; I10 Essential (primary) hypertension; F41.9 Anxiety disorder, unspecified; F32.9 Major depressive disorder, single episode, unspecified; F14.10 Cocaine abuse, uncomplicated; Z87.891 Personal history of nicotine dependence; Z92.21 Personal history of antineoplastic chemotherapy; Z82.49 Family history of ischemic heart disease and other diseases of the circulatory system; Z85.048 Personal history of other malignant neoplasm of rectum, rectosigmoid junction, and anus; Z87.19 Personal history of other diseases of the digestive system; Z93.0 Tracheostomy status; Z87.01 Personal history of pneumonia (recurrent); Z79.51 Long term (current) use of inhaled steroids; Z79.52 Long term (current) use of systemic steroids
CPT/HCPCS: 36415; 71045; 80053; 83605; 83880; 85025; 85610; 85730; 87040; 87070; 87077; 87186; 87205; 87804; 94640; 94799

== ENCOUNTER → 2019-03-20 | Outpatient (CLI) | payer MEDICARE, MEDICAID ==
[~2019-03-20] MED LIST changes: +HOLD METFORMIN - RECEIVED CONTRAST 20 ML VIAL IV SCH; +IOHEXOL 350 MG/ML 100 ML (OMNIPAQUE 350) VIAL IV ONE; +NS 100 ML (IVPB) BAG IV ONE; -OMEP20CA12 PO; +OMEP20CA13 PO; +PRD20T PO
[2019-03-20 11:53] LABS: BUN/CREATININE RATIO 12; CREATININE SERUM 0.89 MG/DL (0.60-1.30); GFR ESTIMATED > 60
--- NOTE | 2019-03-20 13:36 | Diagnostic Imaging Report ---
PROCEDURE: CT chest with contrast only. TECHNIQUE: Multiple contiguous axial images were obtained through the chest after administration of intravenous contrast. Auto Exposure Controls were utilized during the CT exam to meet ALARA standards for radiation dose reduction. INDICATION: COPD, asthma, dyspnea, and sarcoidosis. COMPARISON: Study compared with 06/18/2017. FINDINGS: Trach tube tip is above the kimmie. There has been reduction in groundglass opacities bilaterally, suggestive of resolution of prior pneumonitis or mild edema. No alveolar consolidation. No mass or lymphadenopathy. No thoracic effusion or pneumothorax. No acute or suspect chest wall pathology. Visualized upper abdomen shows either stone or calcifications associated with the gallbladder wall partially visualized. No biliary dilatation. IMPRESSION: Trach tube in good position. No acute pulmonary infiltrate or adverse development with generalized clearing of previous groundglass opacity, stones, and/or porcelain gallbladder partially visualized. No acute finding is apparent. Dictated by: Dictated on workstation # [id number]
== END ==
LOC: RAD 11:28
PROVIDERS: ATTEND Nurse Practitioner Family
DX: J44.9 Chronic obstructive pulmonary disease, unspecified (principal); D86.9 Sarcoidosis, unspecified; E66.01 Morbid (severe) obesity due to excess calories; R09.02 Hypoxemia; Z93.0 Tracheostomy status
CPT/HCPCS: 36415; 71260; 82565; 84520

== ENCOUNTER → 2019-10-08 | Outpatient (CLI) | payer MEDICARE, MEDICAID ==
[~2019-10-08] MED LIST changes: +DIPH25CA48 PO; -DIPH25CA6 PO; -HOLD METFORMIN - RECEIVED CONTRAST 20 ML VIAL IV SCH; -IOHEXOL 350 MG/ML 100 ML (OMNIPAQUE 350) VIAL IV ONE; -NS 100 ML (IVPB) BAG IV ONE; -OMEP20CA13 PO; +OMEP20CA18 PO
--- NOTE | 2019-10-08 17:58 | Diagnostic Imaging Report ---
EXAMINATION: Digital mammogram bilateral screening. The current study was also evaluated with a Computer Aided Detection (CAD) system. 3-D tomosynthesis was also performed and reviewed. INDICATION: Breast cancer screening. This study was compared to the prior exams of 09/25/2018 and 08/17/2017. At this time, there are no current complaints. FINDINGS: The breasts are predominantly fatty. When compared to the previous studies, there has been no significant change. There is no primary or secondary sign of malignancy noted. The stereotactic clips in the left breast seen previously are again evident and no different. IMPRESSION: There is no evidence for malignancy. ACR BI-RADS Category 1: Negative. Result letter will be mailed to the patient. Note: At least 10% of breast cancer is not imaged by mammography. Dictated by: Dictated on workstation # [id number]
== END ==
LOC: RAD 11:11
PROVIDERS: ATTEND Pediatrics
DX: Z12.31 Encounter for screening mammogram for malignant neoplasm of breast (principal)
CPT/HCPCS: 77067

== ENCOUNTER 2020-08-27 20:25 | Emergency (ER) | payer MEDICARE, MEDICAID ==
[~2020-08-27] VITALS: Ht 165 cm; Wt 153.0 kg
[~2020-08-27 20:25] MED LIST changes: -ESCI20TA45 PO; +ESCI20TA56 PO
[2020-08-27] MEDS ORDERED: ASPIRIN 81 MG CHEW (CHILDREN'S ASA) PO ONE (20:30)
[2020-08-27 20:43] LABS: BASOPHILS % (AUTO) 0 % (0-10); EOSINOPHILS # (AUTO) 0.2 10^3/uL (0.0-0.3); EOSINOPHILS % (AUTO) 2 % (0-10); HEMATOCRIT 39 % (35-52); HEMOGLOBIN 12.3 g/dL (11.5-16.0); LYMPHOCYTES # (AUTO) 2.1 10^3/uL (1.0-4.0); LYMPHOCYTES % (AUTO) 27 % (12-44); MEAN CORPUSCULAR HEMOGLOBIN 27 pg (25-34); MEAN CORPUSCULAR HGB CONC 32 g/dL (32-36); MEAN CORPUSCULAR VOLUME 86 fL (80-99); MEAN PLATELET VOLUME 9.4 fL (9.0-12.2); MONOCYTES # (AUTO) 0.5 10^3/uL (0.0-1.0); MONOCYTES % (AUTO) 6 % (0-12); NEUTROPHILS # (AUTO) 5.1 10^3/uL (1.8-7.8); NEUTROPHILS % (AUTO) 64 % (42-75); PLATELET COUNT 249 10^3/uL (130-400)
--- NOTE | 2020-08-27 20:46 | Diagnostic Imaging Report ---
INDICATION: Chest pain, tracheostomy tube. FINDINGS: Frontal view of the chest is compared to an exam from November 25. Tracheostomy tube remains in place. Heart size within normal limits. Lungs are clear. The vascularity is normal. There are no pleural effusions. IMPRESSION: Tracheostomy tube remains in place with no acute findings. Dictated by: Dictated on workstation # [id number]
--- NOTE | 2020-08-27 20:58 | ED Chest Pain ---
General Chief Complaint: Chest Pain Stated Complaint: CHEST PAIN Nursing Triage Note: BROUGHT IN BY [facility] C/O INTERMITTANT CHEST PAIN RADIATING TO BACK SINCE 1500 324 ASA/NTG X1 GIVEN BY EMS Nursing Sepsis Screen: No Definite Risk Source: patient Exam Limitations: no limitations History of Present Illness Date Seen by Provider: Aug 27, 2020 Time Seen by Provider: 20:28 Initial Comments Here by EMS with report of left-sided chest pain that started at about 3 PM and radiated to her back. It is worse when lying down and better when standing up. Does have history of tracheostomy. Denies fever, chills, sore throat, runny nose, nausea, vomiting or diarrhea. Does have slight cough which is not uncommon for her and states that she has a little bit of green mucus. Does not have significant interactions with the community although does occasionally have to shop for food. She always wears her mask. Chest pain did improve after 1 nitro given by EMS. They also did give 324 mg p.o. of aspirin. Overall doing better currently. Timing/Duration: 4-6 hours, getting worse, gone now Severity/Quality: moderate, sharp Location: central (Left-sided) Radiation: back Activities at Onset: other (Cooking chicken) Prior CP/Workup: no prior cardiac workup ASA po PAPER CLEANER: Yes NTG SL PAPER CLEANER: Yes Associated Symptoms: No abdominal pain; back pain; No diaphoresis, No fever/chills, No nausea/vomiting, No shortness of breath, No weakness Allergies and Home Medications Allergies Coded Allergies: No Known Drug Allergies (Unverified , 06/18/17) Home Medications Diphenhydramine HCl 25 Mg Capsule, 25 MG PO HS PRN for ITCHING, (Reported) Escitalopram Oxalate 20 Mg Tablet, 20 MG PO DAILY PRN for ANXIETY, (Reported) Fluticasone Propionate 16 Gm [place].susp, 2 SPRAYS NSEACH HS PRN for ALLERGIES, (Reported) Furosemide 20 Mg Tablet, 20 MG PO DAILY PRN for FLUID RETENTION, (Reported) TAKES FOR WEIGHT GAIN MORE THAN 8 POUNDS IN 3-4 DAYS Hydrochlorothiazide 25 Mg Tablet, 25 MG PO DAILY, (Reported) Levofloxacin 750 Mg Tablet, 750 MG PO DAILY Prescribed by: SHARIFA BULLOCK on 07/03/17 1620 Omeprazole 20 Mg Capsule.dr, 20 MG PO DAILY, (Reported) Potassium Chloride 10 Meq Capsule.er, 10 MEQ PO DAILY, (Reported) Prednisone 10 Mg Tab.ds.pk, 10 MG PO DAILY Take 6 tabs(60mg)daily,decrease by 1 tab(10mg)every other day. Prescribed by: SHARIFA BULLOCK on 07/03/17 1620 Prednisone 20 Mg Tab, 40 MG PO DAILY Prescribed by: TOM STACK on 11/26/18 0026 Patient Home Medication List Home Medication List Reviewed: Yes Review of Systems Review of Systems Constitutional: see HPI; No chills, No fever EENTM: See HPI Respiratory: See HPI, Cough; Denies Shortness of Air Cardiovascular: Chest Pain; Denies Irregular Heart Rate Gastrointestinal: No Symptoms Reported, See HPI Genitourinary: No Symptoms Reported Musculoskeletal: back pain; No muscle weakness Skin: no symptoms reported Psychiatric/Neurological: No Symptoms Reported All Other Systems Reviewed Negative Unless Noted: Yes Past Edvyajf-Kokgcq-Wuxfrx Hx Past Med/Social Hx: Reviewed Nursing Past Med/Soc Hx Patient Social History Alcohol Use: Denies Use Drug of Choice: DENIES Smoking Status: Former Smoker Type Used: Cigarettes Former Smoker, Quit: December 10, 2003 2nd Hand Smoke Exposure: No Recent Infectious Disease Expo: No Recent Hopitalizations: No Immunizations Up To Date Tetanus Booster (TDap): Unknown PED Vaccines UTD: Yes Date of Influenza Vaccine: Jun 08, 2017 Seasonal Allergies Seasonal Allergies: No Past Medical History Surgeries: Yes (PORT RIGHT CHEST/REMOVED; ABSCESS I&D LEFT AXILLA; PERMANENT TRACHEOSTOMY) Tracheostomy Respiratory: Yes (PT HAS TRACH D/T SARCOIDOSIS, WEAR OXYGEN AT HOME) Asthma, Pneumonia, Chronic Bronchitis, COPD Currently Using CPAP: No Currently Using BIPAP: No Cardiac: Yes High Cholesterol, Hypertension Neurological: No : No 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 Genitourinary: No Gastrointestinal: Yes (hepatitis C treated with Harvoni in [id number]; ANAL CANCER--2011) Hepatitis Musculoskeletal: Yes (SARCOIDOSIS) Endocrine: Yes ("BORDERLINE DIABETIC"; MORBID OBESITY) HEENT: Yes (PERMANENT TRACH; EDENTULOUS) Cancer: Yes (RECTAL/ANAL CANCER IN 2011-NO SURGERY--TREATED WITH CHEMO + RADIATION) Rectal Did You Recieve Any Treatments: Yes What Type of Treatment Did You: Chemotherapy, Radiation Psychosocial: Yes Anxiety, Depression Integumentary: No Blood Disorders: No Adverse Reaction/Blood Tranf: No Family Medical History Reviewed Nursing Family Hx Patient reports no known family medical history. Hypertension, Lung Disease Physical Exam Vital Signs Vital Signs - First Documented Capillary Refill : Less Than 3 Seconds Height, Weight, BMI Height: 5'5.00" Weight: 335lbs. 0.4oz. 151.529128lp; 56.00 BMI Method:Actual General Appearance: No Apparent Distress, WD/WN, Obese HEENT: PERRL/EOMI, Pharynx Normal, Moist Mucous Membranes Neck: Non Tender, Supple Respiratory: Lungs Clear, Normal Breath Sounds Cardiovascular: Regular Rate, Rhythm, No Murmur Gastrointestinal: Non Tender, Soft Extremity: Normal Range of Motion, Non Tender, No Calf Tenderness, No Pedal Edema Neurologic/Psychiatric: Alert, Oriented x3 Skin: Normal Color, Warm/Dry Progress/Results/Core Measures Results/Orders Lab Results Laboratory Tests Test 08/27/20 20:30 08/27/20 22:23 Range/Units White Blood Count 8.0 4.3-11.0 10^3/uL Red Blood Count 4.56 3.80-5.11 10^6/uL Hemoglobin 12.3 11.5-16.0 g/dL Hematocrit 39 35-52 % Mean Corpuscular Volume 86 80-99 fL Mean Corpuscular Hemoglobin 27 25-34 pg Mean Corpuscular Hemoglobin Concent 32 32-36 g/dL Red Cell Distribution Width 14.7 H 10.0-14.5 % Platelet Count 249 130-400 10^3/uL Mean Platelet Volume 9.4 9.0-12.2 fL Immature Granulocyte % (Auto) 1 % Neutrophils (%) (Auto) 64 42-75 % Lymphocytes (%) (Auto) 27 12-44 % Monocytes (%) (Auto) 6 0-12 % Eosinophils (%) (Auto) 2 0-10 % Basophils (%) (Auto) 0 0-10 % Neutrophils # (Auto) 5.1 1.8-7.8 10^3/uL Lymphocytes # (Auto) 2.1 1.0-4.0 10^3/uL Monocytes # (Auto) 0.5 0.0-1.0 10^3/uL Eosinophils # (Auto) 0.2 0.0-0.3 10^3/uL Basophils # (Auto) 0.0 0.0-0.1 10^3/uL Immature Granulocyte # (Auto) 0.0 0.0-0.1 10^3/uL Prothrombin Time 13.5 12.2-14.7 SEC INR Comment 1.0 0.8-1.4 Activated Partial Thromboplast Time 29 24-35 SEC D-Dimer 0.82 H 0.00-0.49 UG/ML Sodium Level 141 135-145 MMOL/L Potassium Level 3.3 L 3.6-5.0 MMOL/L Chloride Level 101 98-107 MMOL/L Carbon Dioxide Level 31 21-32 MMOL/L Anion Gap 9 5-14 MMOL/L Blood Urea Nitrogen 15 7-18 MG/DL Creatinine 0.93 0.60-1.30 MG/DL Estimat Glomerular Filtration Rate > 60 BUN/Creatinine Ratio 16 Glucose Level 108 H 70-105 MG/DL Calcium Level 9.2 8.5-10.1 MG/DL Corrected Calcium 9.3 8.5-10.1 MG/DL Magnesium Level 2.1 1.6-2.4 MG/DL Total Bilirubin 0.8 0.1-1.0 MG/DL Aspartate Amino Transf (AST/SGOT) 186 H 5-34 U/L Alanine Aminotransferase (ALT/SGPT) 56 H 0-55 U/L Alkaline Phosphatase 172 H 40-136 U/L Myoglobin 57.4 10.0-92.0 NG/ML Troponin I < 0.028 < 0.028 <0.028 NG/ML C-Reactive Protein High Sensitivity 1.77 H 0.00-0.50 MG/DL Total Protein 7.7 6.4-8.2 GM/DL Albumin 3.9 3.2-4.5 GM/DL Procalcitonin 0.02 <0.10 NG/ML My Orders Orders - TOM STACK MD Cbc With Automated Diff (08/27/20 20:29) Magnesium (08/27/20 20:29) Chest 1 View, Ap/Pa Only (08/27/20 20:29) Ekg Tracing (08/27/20 20:29) Comprehensive Metabolic Panel (08/27/20 20:29) Myoglobin Serum (08/27/20 20:29) Protime With Inr (08/27/20 20:29) Partial Thromboplastin Time (08/27/20 20:29) O2 (08/27/20 20:29) Monitor-Rhythm Ecg Trace Only (08/27/20 20:29) Lipid Panel (08/28/20 06:00) Ed Iv/Invasive Line Start (08/27/20 20:29) Troponin I (08/27/20 20:29) Aspirin Chewable Tablet (Baby Aspirin Ch (08/27/20 20:30) Hs C Reactive Protein (08/27/20 20:38) Procalcitonin (Pct) (08/27/20 20:38) Fibrin Degradation Products (08/27/20 20:30) Famotidine Injection (Pepcid Injection) (08/27/20 22:07) Troponin I (08/27/20 22:07) Prednisone Tablet (Deltasone Tablet) (08/27/20 23:00) Vital Signs/I&O 08/27/20 08/27/20 08/27/20 20:26 20:26 20:26 Temp 35.5 Pulse 90 Resp 18 B/P (MAP) 151/101 (118) Pulse Ox 98 98 O2 Delivery Trach Collar Trach Collar Trach Collar O2 Flow Rate 3.0 3.0 3.00 Blood Pressure Mean: 118 Progress Progress Note : Progress Note Seen and evaluated. IV by EMS, labs, EKG and chest x-ray ordered. ASA ordered but held as she had had that per EMS. No concerns for Covid or sepsis currently. Pain currently resolved after nitro by EMS. Monitor patient. 2200: Patient without pain and initial sats are negative. No concerning findings so far. No findings of pneumonia. This may be related to patient's sarcoid. Repeat troponin ordered. Monitor patient. 7: Repeat troponin negative. Pr ednisone 40 mg p.o. ordered. Patient is overall feeling better. She will follow up with her primary care doctor, Dr. Sharifa Bullock for further evaluation. Patient may need outpatient stress test. Again this may be related to her sarcoidosis. She has not been on steroids for over a year. We will do a burst dose. I did discuss this with her and she [facility] she will call her doctor to get it authorized. I did let her know that we are not prescribers for there but she felt confident that she can get it authorized after talking with her doctor. I will send the prescription there as requested. First dose given now. Discharged home with return precautions. Patient verbalized understanding of instructions and agreement with plan. Initial ECG Impression Date: Aug 27, 2020 Initial ECG Impression Time: 20:28 Initial ECG Rate: 78 Initial ECG Rhythm: Normal Sinus Comment Sinus rhythm with normal axis. No evidence of ST elevation [place]. Change from previous of 07/01/2017 which was SVT. Interpreted by me. Diagnostic Imaging Diagonstic Imaging: Xray Plain Films/CT/US/NM/MRI: chest Comments [facility] [place], [place] NAME: MARYLOU FLAHERTY [facility] REC#: [id number] PT STATUS: REG ER : 1960 PHYSICIAN: TOM STACK MD ADMIT DATE: 08/27/20/ER Signed Date of Exam:08/27/20 CHEST 1 VIEW, AP/PA ONLY INDICATION: Chest pain, tracheostomy tube. FINDINGS: Frontal view of the chest is compared to an exam from November 25. Tracheostomy tube remains in place. Heart size within normal limits. Lungs are clear. The vascularity is normal. There are no pleural effusions. IMPRESSION: Tracheostomy tube remains in place with no acute findings. Dictated by: Dictated on workstation # [id number] Dict: 08/27/202042 Trans: 08/27/202058 [facility] [id number] Interpreted by: MERLE DE JESUS MD Electronically signed by: MERLE DE JESUS MD 08/27/202058 Reviewed: Reviewed by Me Departure Impression Primary Impression: Chest pain Qualified Codes: R07.9 - Chest pain, unspecified Additional Impression: Sarcoidosis of lung Disposition: HOME, SELF-CARE Condition: Improved Departure-Patient Inst. Decision time for Depature: 23:01 Referrals: SHARIFA BULLOCK MD (PCP/Family) Primary Care Physician Patient Instructions: Sarcoidosis (DC) Add. Discharge Instructions: All discharge instructions reviewed with patient and/or family. Voiced understanding. Take medications as directed. Call your physician tomorrow for follow-up and for approval of your prescription. Return for worse pain, fever, vomiting, weakness, breathing problems, chest pain or other concerns as needed. Scripts Prednisone (Prednisone) 20 Mg Tab 40 MG PO DAILY, #12 TAB 0 Refills Prov: TOM STACK MD 08/27/20 Copy Copies To 1: SHARIFA BULLOCK MD, TIMOTHY D MD Aug 27, 2020 20:58
[2020-08-27 21:00] LABS: ALBUMIN 3.9 GM/DL (3.2-4.5); CHLORIDE 101 MMOL/L (98-107); POTASSIUM 3.3 MMOL/L (3.6-5.0); SODIUM 141 MMOL/L (135-145)
[2020-08-27 21:01] LABS: CALCIUM 9.2 MG/DL (8.5-10.1)
[2020-08-27 21:02] LABS: GLUCOSE 108 MG/DL (70-105); TOTAL PROTEIN 7.7 GM/DL (6.4-8.2)
[2020-08-27 21:03] LABS: FIBRIN DEGRADATION PRODUCTS 0.82 UG/ML (0.00-0.49); PROTHROMBIN TIME PATIENT 13.5 SEC (12.2-14.7)
[2020-08-27 21:04] LABS: BILIRUBIN,TOTAL 0.8 MG/DL (0.1-1.0); CARBON DIOXIDE 31 MMOL/L (21-32)
[2020-08-27 21:06] LABS: ALKALINE PHOSPHATASE 172 U/L (40-136); CREATININE SERUM 0.93 MG/DL (0.60-1.30); GFR ESTIMATED > 60
[2020-08-27 21:07] LABS: BUN/CREATININE RATIO 16
[2020-08-27 21:09] LABS: ALANINE AMINOTRANSFERASE 56 U/L (0-55); MAGNESIUM 2.1 MG/DL (1.6-2.4)
[2020-08-27] MEDS ORDERED: FAMOTIDINE 20MG/2ML IV (PEPCID) IV STA (22:07)
[2020-08-27] MEDS ORDERED: predniSONE 20 MG TAB PO ONE (23:00)
[2020-08-27] MEDS ORDERED: PRD20T PO (23:03)
[2020-08-27 23:08] VITALS: BP 113/82
== END 2020-08-27 23:25 | disposition home or self-care (01) ==
LOC: EDUNIT# 20:25 → ER 20:26
DX: D86.0 Sarcoidosis of lung (principal); I10 Essential (primary) hypertension; J44.9 Chronic obstructive pulmonary disease, unspecified; F41.9 Anxiety disorder, unspecified; F32.9 Major depressive disorder, single episode, unspecified; E66.01 Morbid (severe) obesity due to excess calories; Z68.43 Body mass index [BMI] 50.0-59.9, adult; Z87.891 Personal history of nicotine dependence; Z85.048 Personal history of other malignant neoplasm of rectum, rectosigmoid junction, and anus; Z79.51 Long term (current) use of inhaled steroids; Z79.52 Long term (current) use of systemic steroids
CPT/HCPCS: 36415; 71045; 80053; 83735; 83874; 84145; 84484; 85025; 85379; 85610; 85730; 86141; 93005; 93041

== ENCOUNTER → 2020-09-10 | Outpatient (CLI) | payer MEDICARE, MEDICAID ==
--- NOTE | 2020-09-10 08:52 | Diagnostic Imaging Report ---
INDICATION: PROCEDURE: Ultrasound abdomen complete. TECHNIQUE: Multiple real-time grayscale images were obtained of the abdomen in various projections. INDICATION: Elevated liver enzymes. Cholelithiasis The liver appears normal. The gallbladder is filled with gallstones with no gallbladder wall thickening seen. The wall is upper normal at 2.7 mm. There is no pericholecystic fluid evident. The bile ducts are not dilated. Pancreas appears normal. The tail is obscured by bowel gas. The spleen is normal. No acute abnormality of the aorta or IVC is seen. Kidneys are normal. There is no ascites. IMPRESSION: Cholelithiasis. No acute abnormality is seen. Dictated by: Dictated on workstation # [id number]
== END ==
LOC: RAD 08:00
PROVIDERS: ATTEND Pediatrics
DX: K80.20 Calculus of gallbladder without cholecystitis without obstruction (principal); R74.01 Elevation of levels of liver transaminase levels
CPT/HCPCS: 76700

== ENCOUNTER 2020-09-15 06:25 | Outpatient (RCR) | payer MEDICARE, MEDICAID ==
[~2020-09-15] VITALS: Ht 162.6 cm; Wt 152.3 kg
[2020-09-15] MEDS ORDERED: ROSU40TA23 PO (12:51)
[2020-09-15] MEDS ORDERED: FLUO40CA12 PO (12:51)
[2020-09-15] MEDS ORDERED: RT-ALBUINH INH (12:51)
== END 2020-09-15 14:19 | disposition home or self-care (01) ==
LOC: PREOP 06:25
PROVIDERS: ATTEND Surgery
DX: Z01.812 Encounter for preprocedural laboratory examination (principal); K29.70 Gastritis, unspecified, without bleeding; Z85.048 Personal history of other malignant neoplasm of rectum, rectosigmoid junction, and anus

== ENCOUNTER 2020-09-19 05:33 | Outpatient (RCR) | payer MEDICARE, MEDICAID ==
[~2020-09-19] VITALS: Ht 165.1 cm; Wt 152.3 kg
[~2020-09-19 05:33] MED LIST changes: +ESCI20TA39 PO; -ESCI20TA56 PO; +FLUO40CA12 PO; +ROSU40TA23 PO; +RT-ALBUINH INH
== END 2020-09-23 10:58 | disposition home or self-care (01) ==
LOC: PREOP 05:33
PROVIDERS: ATTEND Surgery
DX: Z01.818 Encounter for other preprocedural examination (principal)

== ENCOUNTER 2020-10-06 07:21 | Day surgery (SDC) | payer MEDICARE, MEDICAID ==
[~2020-10-06] VITALS: Ht 162.6 cm; Wt 152.3 kg
[2020-10-06] VITALS (7 sets, daily range): BP systolic 119–131; BP diastolic 71–85
[2020-10-06] MEDS ORDERED: KETAMINE/NaCl 50 MG/5 ML SYRINGE (ED ONLY) ONE ×2 (07:34→08:54)
[2020-10-06] MEDS ORDERED: MIDAZOLAM 2 MG/2 ML (VERSED) VIAL ONE ×2 (07:34→09:08)
[2020-10-06] MEDS ORDERED: LACTATED RINGERS 1,000 ML IV ONE (07:49)
[2020-10-06] MEDS ORDERED: ceFAZolin INJECTION 0 MG ONE (08:06)
[2020-10-06] MEDS ORDERED: proPOfol 200 MG/20 ML (DIPRIVAN) VIAL IV ONE ×2 (08:06→09:19)
[2020-10-06] MEDS ORDERED: ceFAZolin 2 GM IV Premixed 50 ML ONE (08:08)
--- NOTE | 2020-10-06 08:11 | Progress Note-Pre Operative ---
Pre-Operative Progress Note H&P Reviewed The H&P was reviewed, patient examined and no changes noted. Time Seen by Provider: 08:07 Date H&P Reviewed: Oct 06, 2020 Time H&P Reviewed: 08:08 Pre-Operative Diagnosis: GERD, Hx of anal CA BRENNEN HERCULES DO Oct 06, 2020 08:11
[2020-10-06] MEDS ORDERED: ceFAZolin 2 GM IV Premixed 50 ML IV ONE (08:15)
[2020-10-06] MEDS ORDERED: LACTATED RINGERS 1,000 ML IV PRN (08:15)
[2020-10-06] MEDS ORDERED: HURRICAINE EXT TUBE (BENZOCAINE) XX ONE (08:45)
--- NOTE | 2020-10-06 09:33 | Progress Note-Post Operative ---
Post-Operative Progess Note Surgeon (s)/Music Copyist (s) Surgeon BRENNEN HERCULES DO Music Copyist: CHULA RashidII Pre-Operative Diagnosis GERD, Hx of anal CA Post-Operative Diagnosis Gastritis Gastric Polyp Colon polyp diverticula int hemorrhoids Procedure & Operative Findings Date of Procedure 10/06/20 Procedure Performed/Findings EGD with bx EGD with snare polypectomy Colon with snare Anesthesia Type IV sedation by SOCIAL MEDIA ANALYST Estimated Blood Loss Estimated blood loss (mL): scant Specimens/Packing Specimens Removed Antral bx Body of stomach bx GE jxn bx Gastric polyp x 2 Descending colon polyp BRENNEN HERCULES DO Oct 06, 2020 09:33
--- NOTE | 2020-10-06 09:34 | Endoscopy Discharge Instruct ---
Endo Procedure/Findings Findings 1.: Gastritis, Other Findings (Gasric Polyps) 2.: Polyp 3.: Diverticulosis 4.: Internal Hemorrhoids Discharge Instructions - Activity: You might feel a little sleepy until tomorrow. This is due to the medicine you received to relax you. Until tomorrow, you should: NOT drive a car, operate machinery or power tools. NOT drink any alcoholic beverages. NOT make any important decisions or sign importortant papers. Do not return to work until tomorrow, unless otherwise instructed. Resume previous activities tomorrow. Diet: Start by taking liquids. If you tolerate liquids, advance to solid food. 1.: EGD in 6-8 weeks 2.: Colonscopy in 5 years Notify Physician - If you experience excessive bleeding, unusual abdominal pain, fever, or chest pain, contact your doctor immediately. BRENNEN HERCULES DO Oct 06, 2020 09:34
--- NOTE | 2020-10-06 12:39 | Anesthesia-General Post-Op ---
MAC Patient Condition Mental Status/LOC: Same as Preop Cardiovascular: Satisfactory Nausea/Vomiting: Absent Respiratory: Satisfactory Pain: Controlled Complications: Absent Post Op Complications Complications None Follow Up Care/Instructions Patient Instructions None needed. Anesthesiology Discharge Order Discharge Order Patient is doing well, no complaints, stable vital signs, no apparent adverse anesthesia problems. No complications reported per nursing. MADAI MERINO CRNA Oct 06, 2020 12:39
--- NOTE | 2020-10-07 18:03 | OPERATIVE REPORT ---
DATE OF SERVICE: 10/06/2020 PREOPERATIVE DIAGNOSES: 1. Gastroesophageal reflux disease. 2. History of anal cancer. POSTOPERATIVE DIAGNOSES: Gastritis, gastric polyp, colon polyps, diverticula, internal hemorrhoids. PROCEDURES: 1. EGD with biopsy. 2. EGD with snare polypectomy with heat. 3. Colonoscopy with snare polypectomy. SURGEON: Boyd Danielson DO CHILDREN TEACHER: Jose Sommer MS3. SPECIMEN: 1. Gastric polyps x2. 2. Biopsy of body of stomach, biopsy of the antrum, biopsy of GE junction as well as then a descending colon polyp. BLOOD LOSS: Scant. FLUIDS: Per anesthesia. POSTOPERATIVE CONDITION: Stable. INDICATION FOR PROCEDURE: The patient is a 59-year-old female who has been having some GERD and she has a history of anal cancer, needed a workup. FINDINGS: The patient had a pretty severe gastritis and had polyps in the stomach that did not look necessary like a normal fundic gland polyps, they may have inflammatory and she had a polyp in the descending colon as well as some diverticula and internal hemorrhoids. PROCEDURE NOTE: After informed consent was obtained, the patient was brought to the endoscopy suite, placed in bed in left lateral decubitus position. She was administered IV sedation by the APARTMENT MAINTENANCE SUPERVISOR who then monitored her vitals the entire time, heart rate, blood pressure and pulse ox and we started with placing with the EGD, placed the scope down the mouth through the esophagus into the stomach, noted some pretty severe gastritis and then large polyps that looked like they may have been inflammatory, they did not look like normal fundic gland polyps. Pushing the duodenum, took a picture of this. Pulled back, elected to remove a couple of these pretty severe looking polyps with a snare polypectomy with heat, removed these with a snare and then elected to do biopsies of the antrum, body of the stomach, retroflexed the scope and then took a picture and then pulled the scope into the GE junction, did a biopsy here as well and then pushed the scope back into the stomach, suctioned all the air out. Switched camera, switched gloves, went down below, started the colonoscopy, pushed in to about 160 cm, able to get all the way to the cecum. On the way in, noted a polyp in the descending colon, able to remove this with a snare polypectomy. Pushed all the way to the cecum, took a picture of appendiceal orifice, noted the ileocecal valve, and then slowly withdrew the scope insufflating the circumferential talbert looking the cecum, up the ascending colon to the hepatic flexure, then down the transverse colon, splenic flexure, into the descending colon, saw a polyp here, did a snare polypectomy of this, continued down into the rectum, retroflexed in the rectal vault, saw some minimal internal hemorrhoids, took a picture of this. Also saw some diverticula in the descending and sigmoid colon. Pictures were taken. The patient tolerated the procedure. She was recovered in endoscopy suite. Job ID: [id number] DocumentID: [id number] Dictated Date: 10/07/2020 13:10:34 Accountant Tax Date: 10/07/2020 18:03:00 Dictated By: DO MYRON HERNANDEZ
== END 2020-10-06 10:40 | disposition home or self-care (01) ==
LOC: ENDO 07:21
PROVIDERS: ATTEND Surgery
DX: K31.7 Polyp of stomach and duodenum (principal); K29.50 Unspecified chronic gastritis without bleeding; D12.4 Benign neoplasm of descending colon; K21.00 Gastro-esophageal reflux disease with esophagitis, without bleeding; K57.30 Diverticulosis of large intestine without perforation or abscess without bleeding; K64.8 Other hemorrhoids; I10 Essential (primary) hypertension; J44.9 Chronic obstructive pulmonary disease, unspecified; F41.9 Anxiety disorder, unspecified; F32.9 Major depressive disorder, single episode, unspecified; G47.33 Obstructive sleep apnea (adult) (pediatric); G47.10 Hypersomnia, unspecified; K80.10 Calculus of gallbladder with chronic cholecystitis without obstruction; E66.01 Morbid (severe) obesity due to excess calories; Z68.43 Body mass index [BMI] 50.0-59.9, adult; Z79.51 Long term (current) use of inhaled steroids; Z79.899 Other long term (current) drug therapy; Z85.048 Personal history of other malignant neoplasm of rectum, rectosigmoid junction, and anus

== ENCOUNTER 2020-10-08 06:42 | Day surgery (SDC) | payer MEDICARE, MEDICAID ==
[2020-10-08] VITALS (11 sets, daily range): BP systolic 105–138; BP diastolic 70–97
[~2020-10-08] VITALS: Ht 165 cm; Wt 152.3 kg
[2020-10-08] MEDS ORDERED: ceFAZolin 2 GM IV Premixed 50 ML IV ONE (07:00)
[2020-10-08] MEDS ORDERED: IOPAMIDOL 61% 30 ML (ISOVUE 300) VIAL ONE (07:12)
[2020-10-08] MEDS ORDERED: LIDOCAINE/EPI 1%-1:200,000 (XYLOCAINE) 10 ML VIAL ONE (07:13)
[2020-10-08 07:18] LABS: BASOPHILS % (AUTO) 1 % (0-10); EOSINOPHILS # (AUTO) 0.2 10^3/uL (0.0-0.3); EOSINOPHILS % (AUTO) 3 % (0-10); HEMATOCRIT 39 % (35-52); HEMOGLOBIN 12.4 g/dL (11.5-16.0); LYMPHOCYTES # (AUTO) 1.6 10^3/uL (1.0-4.0); LYMPHOCYTES % (AUTO) 29 % (12-44); MEAN CORPUSCULAR HEMOGLOBIN 27 pg (25-34); MEAN CORPUSCULAR HGB CONC 32 g/dL (32-36); MEAN CORPUSCULAR VOLUME 85 fL (80-99); MEAN PLATELET VOLUME 9.3 fL (9.0-12.2); MONOCYTES # (AUTO) 0.4 10^3/uL (0.0-1.0); MONOCYTES % (AUTO) 7 % (0-12); NEUTROPHILS # (AUTO) 3.4 10^3/uL (1.8-7.8); NEUTROPHILS % (AUTO) 60 % (42-75); PLATELET COUNT 250 10^3/uL (130-400); WHITE BLOOD COUNT 5.7 10^3/uL (4.3-11.0)
[2020-10-08] MEDS ORDERED: SEVOFLURANE (ULTANE) 15 ML INHAL SOLN ONE ×3 (07:19→09:23)
[2020-10-08] MEDS ORDERED: ROCURONIUM 10 MG/ML 5 ML SYRINGE IV ONE (07:19)
[2020-10-08] MEDS ORDERED: proPOfol 200 MG/20 ML (DIPRIVAN) VIAL IV ONE (07:19)
[2020-10-08] MEDS ORDERED: fentaNYL INJECTION 100 MCG/2 ML AMP ONE ×2 (07:20→09:38)
[2020-10-08] MEDS ORDERED: MIDAZOLAM 2 MG/2 ML (VERSED) VIAL ONE (07:20)
[2020-10-08] MEDS ORDERED: ONDANSETRON 4 MG/2 ML (SDV) Z0FRAN ONE ×2 (07:23→09:37)
[2020-10-08] MEDS: LACTATED RINGERS 1,000 ML IV PRN ×2 (07:31→09:59)
[2020-10-08] MEDS ORDERED: KETAMINE/NaCl 50 MG/5 ML SYRINGE (ED ONLY) ONE (07:48)
--- NOTE | 2020-10-08 08:12 | Progress Note-Pre Operative ---
Pre-Operative Progress Note H&P Reviewed The H&P was reviewed, patient examined and no changes noted. Time Seen by Provider: 08:07 Date H&P Reviewed: Oct 08, 2020 Time H&P Reviewed: 08:08 Pre-Operative Diagnosis: cholelithiasis/cholecystitis BRENNEN HERCULES DO Oct 08, 2020 08:11
[2020-10-08] MEDS ORDERED: LIDOCAINE JELLY 2% 6 ML SYRINGE ONE (08:22)
[2020-10-08] MEDS ORDERED: LIDOCAINE PF 2% 5 ML (XYLOCAINE) VIAL ONE (08:22)
[2020-10-08] MEDS ORDERED: ACHYD1T PO (09:24)
--- NOTE | 2020-10-08 09:24 | Progress Note-Post Operative ---
Post-Operative Progess Note Surgeon (s)/Hydro Pneumatic Tester (s) Surgeon BRENNEN HERCULES DO Hydro Pneumatic Tester: Jose Pre-Operative Diagnosis cholelithiasis/cholecystitis Post-Operative Diagnosis same Procedure & Operative Findings Date of Procedure 10/08/20 Procedure Performed/Findings PROCEDURE: Laparoscopic cholecystectomy with intraoperative cholangiogram. COMPLICATIONS: None. PROCEDURE: The patient was taken to the operating suite and was prepped and draped in sterile fashion. A surgical pause was performed. Just superior to the umbilicus, a 12 mm incision was made. Dissection was taken down to the fascia, which was then scored and grasped with a Amanda and the abdomen was then entered. A 0 Vicryl suture was placed in a [id number] fashion and a Null trocar was placed and secured. Pneumoperitoneum was achieved. A 5mm trochar place in the subxyphoid and 2 in the right upper quadrant. The gallbladder was then grasped and elevated. It looked like there was a large stone in the gallbladder making it hard to grasp. There were adhesions noted to the gallbladder which usually indicates previous gallbladder attacks. The cystic duct, and cystic artery were then dissected out. Clip was placed on the distal portion of the cystic duct which was then partially transected. An arrow catheter was inserted into the duct. The cholangiogram was then performed. No filing defects and contrast made its way into the duodenum. Catheter removed. Clips were placed on proximal portion of the cystic duct and then the duct was then transected. Clips were placed along the proximal and distal portion of the cystic artery which was then transected. Hook cautery was used to dissect the gallbladder from the gallbladder fossa achieving hemostasis. The gallbladder was placed in an Endobag and removed through the 12 mm trocar site. The abdomen was then reinspected. Copious amounts of irrigation were used to irrigate the abdomen and there were no signs of active bleeding. Hemostasis had been achieved. The 12 mm fascial defect was then closed with 0 Vicryl suture that had been placed in a [id number] fashion. The abdomen was then desufflated, the trocars were removed. The abdomen was then washed and dried. The skin was then closed using 4-0 Monocryl in a subcuticular fashion. The abdomen was washed and dried and Skin Affix was place over incisions. Patient tolerated the procedure well without any complications and was taken to the recovery room in stable condition. Dr. Garcia assisted on this case helping to make incisions, close incisions, identify anatomy and hold anatomy out of the way. Anesthesia Type GET Estimated Blood Loss Estimated blood loss (mL): appx 20ml Specimens/Packing Specimens Removed GB and contents BRENNEN HERCULES DO Oct 08, 2020 09:24
--- NOTE | 2020-10-08 09:25 | Discharge Inst-Surgical ---
Discharge Inst-Surgical Depart Medication/Instructions New, Converted or Re-Newed RX: RX Given to Pt/Family Patient Instructions Follow up Appt: Make appointment for 1 week. [phone] Instructions: No lifting greater than 20 pounds. No strenuous activity. May shower in 24 hours, no tub bath or soaking. Use incentive spirometer at home as directed. No Smoking Skin/Wound Care: May remove bandages in am. You need to leave the Dermabond on incision it will fall off on it's own. Symptoms to Report: Appetite Changes, Extremity Discoloration, Numbness/Tingling, Swelling Increased, Bleeding Excessive, Eyesight Changes, Pain Increased, Urine Color Change, Constipation(Persistent), Fever over 101 degree F, Pain/Pressure in chest, Urinating Difficulty, Cough Up/Vomit Blood, Heart Beat Irreg/Pounding, Pain/Pressure in jaw, Cramps in feet or legs, Lightheadedness, Pain/Pressure in shoulder, Diarrhea(Persistent), Memory Changes Suddenly, Questions/Concerns, Weight gain consecutive days, Dizziness/Fainting, Nausea/Vomiting, Shortness of Breath, Weight gain over 2 pounds If questions or concerns contact your physician Or seek help at emergency department. Activity Activity as Tolerated: Yes Activity Instructions: Avoid Stress to Incision Driving Instructions: No Driving/Refer to Diet Discharge Diet: Avoid Fatty Foods, Low Fat/Low Cholesterol Diet After 24 Hours: Clear Liquid if Nauseous If Any Problems/Questions/Issu: Contact Your Physician, Go to Emergency Room Skin/Wound Care Infection Signs and Symptoms: Increased Redness, Foul Odor of Wound, Increased Drainage, Skin Itchy or Has a Rash, Increased Swelling, Temperature Above 101 F Wound Care Comment: heating pad to shoulder or neck tonight for pain Bathing Instructions: Shower Stitches/[place]/Dermabond Dis: Dermabond Ice Pack: Ice On and Off Site (as needed for pain at incision sites) BRENNEN HERCULES DO Oct 08, 2020 09:25
[2020-10-08] MEDS ORDERED: fentaNYL INJECTION 100 MCG/2 ML AMP IVP ONE (09:45)
[2020-10-08] MEDS: ONDANSETRON 4 MG/2 ML (SDV) Z0FRAN IVP PRN ×3 (09:49→10:49)
[2020-10-08] MEDS ORDERED: PHENYLEPHRINE 100 MCG/ML 10 ML (ANESTHESIA) SYR ONE (09:49)
--- NOTE | 2020-10-08 10:03 | Diagnostic Imaging Report ---
INDICATION: Cholecystitis. FINDINGS: Intraoperative fluoroscopy was utilized for cholangiogram. Images for review with cine loop shows good opacification of the common duct. There is free flow of contrast into the duodenum. There are no filling defects or strictures. IMPRESSION: Normal-appearing intraoperative cholangiogram. Fluoroscopic time of 13 seconds reported. Dictated by: Dictated on workstation # [id number]
--- NOTE | 2020-10-13 07:21 | Anesthesia-General Post-Op ---
General Significant Intra-Op Events Notes late entry 10/08@ 1030 Patient Condition Mental Status/LOC: Same as Preop Cardiovascular: Satisfactory Nausea/Vomiting: Absent Respiratory: Satisfactory Pain: Controlled Complications: Absent Post Op Complications Complications None Follow Up Care/Instructions Patient Instructions None needed. Anesthesia/Patient Condition Patient Condition Patient is doing well, no complaints, stable vital signs, no apparent adverse anesthesia problems. No complications reported per nursing. QUINN TURNER CRNA Oct 13, 2020 07:20
== END 2020-10-08 12:30 | disposition home or self-care (01) ==
LOC: SDC 06:42
PROVIDERS: ATTEND Surgery
DX: K80.10 Calculus of gallbladder with chronic cholecystitis without obstruction (principal); I10 Essential (primary) hypertension; J44.9 Chronic obstructive pulmonary disease, unspecified; F32.9 Major depressive disorder, single episode, unspecified; K21.9 Gastro-esophageal reflux disease without esophagitis; E66.01 Morbid (severe) obesity due to excess calories; Z68.43 Body mass index [BMI] 50.0-59.9, adult; Z79.899 Other long term (current) drug therapy; Z79.51 Long term (current) use of inhaled steroids; Z85.048 Personal history of other malignant neoplasm of rectum, rectosigmoid junction, and anus
CPT/HCPCS: 36415; 76000; 85025; 87081; 88304

== ENCOUNTER → 2020-10-15 | Outpatient (CLI) | payer MEDICARE, MEDICAID ==
[~2020-10-15] MED LIST changes: +ACHYD1T PO
--- NOTE | 2020-10-15 19:45 | Diagnostic Imaging Report ---
INDICATION: Routine screening. COMPARISON: Prior mammograms from 10/08/2019 and 09/25/2018. EXAMINATION: 2D and 3D bilateral screening mammography was performed with CAD. 3D tomographic images were obtained and reviewed. FINDINGS: Both breasts are primarily involutional. There is a focal density in the central left breast best seen on the CC view just lateral to the nipple line. This appears to be superiorly located on the tomographic images. Additional views are recommended. There are clips in the left breast. Right breast is unremarkable. There are no malignant appearing microcalcifications. Axillae are unremarkable. IMPRESSION: Left breast density. Additional views recommended for further evaluation. ACR BI-RADS Category 0: Incomplete. (Needs additional imaging evaluation). Result letter will be mailed to the patient. Note: At least 10% of breast cancer is not imaged by mammography. Dictated by: Dictated on workstation # [id number]
== END ==
LOC: RAD 10:25
PROVIDERS: ATTEND Pediatrics
DX: Z12.31 Encounter for screening mammogram for malignant neoplasm of breast (principal)
CPT/HCPCS: 77063; 77067

== ENCOUNTER → 2020-10-24 | Outpatient (CLI) | payer MEDICARE, MEDICAID ==
--- NOTE | 2020-10-24 12:28 | Diagnostic Imaging Report ---
INDICATION: Left breast density. Patient presents for additional views. CORRELATION is made with screening study from 10/15/2020. Unilateral left 2-D and 3-D diagnostic mammography was performed with CAD. This includes spot compression CC and ML views as well as conventional 90 degrees lateral views. Additional views confirm the presence of a tiny circumscribed ovoid lesion in the upper left breast at mid to posterior depth. This has fairly benign features. No other abnormalities are seen. IMPRESSION: BI-RADS 0 Tiny ovoid density in the upper left breast mid to posterior depth. Further evaluation with ultrasound is recommended and will be performed today. ACR BI-RADS Category 0: Incomplete. (Needs additional imaging evaluation). Result letter will be mailed to the patient. Note: At least 10% of breast cancer is not imaged by mammography. Dictated by: Dictated on workstation # [id number]
--- NOTE | 2020-10-24 13:52 | Diagnostic Imaging Report ---
Indication: Left breast nodule. Patient presents for further evaluation. Correlation is made with diagnostic mammogram 10/24/2020 and screening mammogram from 10/15/2020. Sonographic interrogation upper left breast demonstrates a tiny hypoechoic nodule at the 11:00 location, 14 cm from the nipple. This does show some thin surrounding peripheral echogenicity measuring 8 mm x 4 mm x 5 mm. This has benign features. No internal vascularity is seen. IMPRESSION: BI-RADS Category 2 Tiny hypoechoic nodule 11:00 location left breast, 14 cm from the nipple. This has benign features. Patient may return to routine annual screening mammography. ACR BI-RADS Category 2: Benign findings. Dictated by: Dictated on workstation # [id number]
== END ==
LOC: RAD 13:45
PROVIDERS: ATTEND Pediatrics
DX: N63.20 Unspecified lump in the left breast, unspecified quadrant (principal); R92.2 Inconclusive mammogram
CPT/HCPCS: 76642; 77065; G0279

== ENCOUNTER 2020-11-06 11:04 | Inpatient (IN) | payer MEDICARE, MEDICAID ==
[~2020-11-06] VITALS: Ht 165 cm; Wt 145.0 kg
[2020-11-06] MEDS ORDERED: VANCOMYCIN INJECTION 2,000 MG in NS IV 500 ML 500 ML IV ONE (11:23)
[2020-11-06] MEDS ORDERED: ALBUTEROL/IPRATROP (COMBIVENT RESPIMAT) 4 GM INHALER IH STA (11:23)
[2020-11-06] MEDS ORDERED: ACETAMINOPHEN 500 MG TAB (TYLENOL) PO PRN (11:30)
[2020-11-06] MEDS ORDERED: CEFEPIME INJECTION 1,000 MG in WATER (STERILE) FOR INJECTION 10 ML IV ONE (11:30)
[2020-11-06] MEDS ORDERED: LACTATED RINGERS 1,000 ML IV ONE ×2 (11:30)
--- NOTE | 2020-11-06 11:31 | ED General ---
General Chief Complaint: Respiratory Problems Stated Complaint: DEHYDRATION, LOW O2 Source of Information: Patient Exam Limitations: No Limitations History of Present Illness Date Seen by Provider: Nov 06, 2020 Time Seen by Provider: 11:19 Initial Comments The patient presents to the ER by private conveyance from [facility] Dr. Sharifa Bullock called ahead and gave report. Patient is on oxygen at 3 L by trachea mask at baseline and usually her oxygen sats are in the upper 90s however in the clinic she is having lots of productive cough for the past 4 days and her oxygen sats are 90 to 94% on her baseline. The patient says she is had to turn her oxygen up at home as well as she has been using her breathing treatments for her asthma/COPD/sarcoid more frequently and does not feel like they are helping as much. She does not feel wheezy just short of breath, headache, malaise, chills and subjective fever. She does not smoke cigarettes. She got her first dose of Covid vaccine on the and 3 or 4 days later over the weekend she started feeling symptoms. She is not on blood thinners and does not have a history of pulmonary embolism. She has had some nausea off and on but is not having any now. She is having no chest pain diarrhea constipation however she does have decreased appetite and fluid intake. She was started on an antibiotic by Dr. Menezes, pulmonology on Tuesday but she said she was unable to keep it down because it caused nausea so she is not taking it. She has not been on steroids recently. She is not on any immunocompromising medication Allergies and Home Medications Allergies Coded Allergies: No Known Drug Allergies (Unverified , 06/18/17) Home Medications Albuterol Sulfate 1 Puff Puff, 2 PUFF INH Q4H, (Reported) 1 PUFF = 90 MCG Fluoxetine HCl 40 Mg Capsule, 40 MG PO DAILY, (Reported) Furosemide 20 Mg Tablet, 20 MG PO DAILY PRN for FLUID RETENTION, (Reported) TAKES FOR WEIGHT GAIN MORE THAN 8 POUNDS IN 3-4 DAYS Hydrochlorothiazide 25 Mg Tablet, 25 MG PO DAILY, (Reported) Hydrocodone Bit/Acetaminophen 1 Ea Tab, 1 TAB PO Q6H Prescribed by: BRENNEN HERCULES on 10/08/20 0924 Rosuvastatin Calcium 40 Mg Tablet, 40 MG PO DAILY, (Reported) Patient Home Medication List Home Medication List Reviewed: Yes Review of Systems Review of Systems Constitutional: chills; No diaphoresis; fever, malaise EENTM: No ear discharge, No ear pain Respiratory: cough, phlegm, short of breath; No wheezing Cardiovascular: No chest pain, No Hx of Intervention, No palpitations Gastrointestinal: No abdominal pain, No constipation, No diarrhea Genitourinary: No discharge, No dysuria Musculoskeletal: No back pain, No joint pain All Other Systems Reviewed Negative Unless Noted: Yes Past [id number] Hx Patient Social History Alcohol Use: Denies Use Drug of Choice: DENIES/ hx of drug use Smoking Status: Former Smoker Type Used: Cigarettes Former Smoker, Quit: December 10, 2003 2nd Hand Smoke Exposure: No Recent Hopitalizations: No Immunizations Up To Date Tetanus Booster (TDap): Unknown PED Vaccines UTD: Yes Date of Influenza Vaccine: Aug 19, 2020 Seasonal Allergies Seasonal Allergies: No Past Medical History Surgeries: Yes (PORT RIGHT CHEST/REMOVED; ABSCESS I&D LEFT AXILLA; PERMANENT TRACHEOSTOMY) Tracheostomy Respiratory: Yes (PT HAS TRACH D/T SARCOIDOSIS, WEAR OXYGEN AT HOME) Asthma, Pneumonia, Chronic Bronchitis, COPD Currently Using CPAP: No Currently Using BIPAP: No Cardiac: Yes High Cholesterol, Hypertension Neurological: No Female Reproductive Disorders: Denies 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 Genitourinary: No Gastrointestinal: Yes (hepatitis C treated with Harvoni in [id number]; ANAL CANCER--2011) Hepatitis Musculoskeletal: Yes (SARCOIDOSIS) Endocrine: Yes ("BORDERLINE DIABETIC"; MORBID OBESITY) HEENT: Yes (PERMANENT TRACH; EDENTULOUS) Loss of Vision: Denies Hearing Impairment: Denies Cancer: Yes (RECTAL/ANAL CANCER IN 2011-NO SURGERY--TREATED WITH CHEMO + RADIATION) Rectal Did You Recieve Any Treatments: Yes What Type of Treatment Did You: Chemotherapy, Radiation Psychosocial: Yes Anxiety, Depression Integumentary: No Blood Disorders: No Adverse Reaction/Blood Tranf: No Family Medical History Patient reports no known family medical history. Hypertension, Lung Disease Physical Exam-Suspected Sepsis Physical Exam Vital Signs Vital Signs - First Documented 11/06/20 11/06/20 11:17 12:00 Temp 39.6 Pulse 114 Resp 26 B/P (MAP) 107/79 (88) Pulse Ox 98 O2 Delivery Nasal Cannula O2 Flow Rate 3.00 FiO2 99 Capillary Refill : Height, Weight, BMI Height: 5'5.00" Weight: 335lbs. 0.4oz. 151.958456xl; 55.94 BMI Method:Actual General Appearance: Moderate Distress, Obese Eyes: Bilateral Eye Normal Inspection, Bilateral Eye PERRL, Bilateral Eye EOMI HEENT: PERRL/EOMI, TMs Normal, Normal ENT Inspection; No Moist Mucous Membranes Neck: Full Range of Motion, Normal Inspection Respiratory: Accessory Muscle Use (Mild); No Rales; Respiratory Distress (Moderate distress with increased work of breathing and respiratory rate of 25 to 30 breaths/min with a trach shield and a fenestrated trach running at 3 L and 97%.), Wheezing (Mild, prolonged expiratory wheeze) Cardiovascular: Regular Rate, Rhythm, No Edema, Normal Peripheral Pulses, Tachycardia (115-120) Gastrointestinal: Normal Bowel Sounds, Non Tender, Soft Extremity: Normal Capillary Refill, Normal Inspection Neurologic/Psychiatric: Alert, Oriented x3 Skin: normal color, warm/dry Focused Exam Lactate Level 11/06/20 11:25: Lactic Acid Level 1.53 Lactic Acid Level Laboratory Tests Test 11/06/20 11:25 Lactic Acid Level 1.53 MMOL/L (0.50-2.00) Progress/Results/Core Measures Suspected Sepsis SIRS Temperature: Pulse: Respiratory Rate: Laboratory Tests 11/06/20 11:25: White Blood Count 12.7H Blood Pressure / Mean: 11/06/20 11:25: Lactic Acid Level 1.53 Laboratory Tests 11/06/20 11:25: Creatinine 1.32H, INR Comment 1.2, Platelet Count 249, Total Bilirubin 0.8 Results/Orders Lab Results Laboratory Tests Test 11/06/20 11:25 11/06/20 11:35 Range/Units White Blood Count 12.7 H 4.3-11.0 10^3/uL Red Blood Count 4.56 3.80-5.11 10^6/uL Hemoglobin 12.4 11.5-16.0 g/dL Hematocrit 39 35-52 % Mean Corpuscular Volume 85 80-99 fL Mean Corpuscular Hemoglobin 27 25-34 pg Mean Corpuscular Hemoglobin Concent 32 32-36 g/dL Red Cell Distribution Width 15.0 H 10.0-14.5 % Platelet Count 249 130-400 10^3/uL Mean Platelet Volume 10.9 9.0-12.2 fL Immature Granulocyte % (Auto) 1 % Neutrophils (%) (Auto) 77 H 42-75 % Lymphocytes (%) (Auto) 13 12-44 % Monocytes (%) (Auto) 9 0-12 % Eosinophils (%) (Auto) 0 0-10 % Basophils (%) (Auto) 1 0-10 % Neutrophils # (Auto) 9.7 H 1.8-7.8 10^3/uL Lymphocytes # (Auto) 1.7 1.0-4.0 10^3/uL Monocytes # (Auto) 1.1 H 0.0-1.0 10^3/uL Eosinophils # (Auto) 0.0 0.0-0.3 10^3/uL Basophils # (Auto) 0.1 0.0-0.1 10^3/uL Immature Granulocyte # (Auto) 0.1 0.0-0.1 10^3/uL Prothrombin Time 15.3 H 12.2-14.7 SEC INR Comment 1.2 0.8-1.4 Activated Partial Thromboplast Time 28 24-35 SEC D-Dimer 3.85 H 0.00-0.49 UG/ML Sodium Level 137 135-145 MMOL/L Potassium Level 3.3 L 3.6-5.0 MMOL/L Chloride Level 95 L 98-107 MMOL/L Carbon Dioxide Level 28 21-32 MMOL/L Anion Gap 14 5-14 MMOL/L Blood Urea Nitrogen 9 7-18 MG/DL Creatinine 1.32 H 0.60-1.30 MG/DL Estimat Glomerular Filtration Rate 50 BUN/Creatinine Ratio 7 Glucose Level 109 H 70-105 MG/DL Lactic Acid Level 1.53 0.50-2.00 MMOL/L Calcium Level 9.1 8.5-10.1 MG/DL Corrected Calcium 9.3 8.5-10.1 MG/DL Total Bilirubin 0.8 0.1-1.0 MG/DL Aspartate Amino Transf (AST/SGOT) 45 H 5-34 U/L Alanine Aminotransferase (ALT/SGPT) 26 0-55 U/L Alkaline Phosphatase 103 40-136 U/L C-Reactive Protein High Sensitivity 29.72 H 0.00-0.50 MG/DL Total Protein 8.7 H 6.4-8.2 GM/DL Albumin 3.8 3.2-4.5 GM/DL Procalcitonin 0.24 H <0.10 NG/ML Coronavirus 2019 (VIVIANE) Negative Negative Blood Gas Puncture Site UNK Blood Gas Patient Temperature 103.1 Arterial Blood pH 7.34 *L 7.37-7.43 Arterial Blood Partial Pressure CO2 65 H 35-45 MMHG Arterial Blood Partial Pressure O2 35 *L 79-93 MMHG Arterial Blood HCO3 33 H 23-27 MMOL/L Arterial Blood Total CO2 34.4 H 21.0-31.0 MMOL/L Arterial Blood Oxygen Saturation 38 L 94-100 % Arterial Blood Base Excess 7.5 H -2.5-2.5 MMOL/L Aj Test YES-POS Blood Gas Ventilator Setting NO Blood Gas Inspired Oxygen 3 Micro Results Microbiology 11/06/20 Influenza Types A,B Antigen (YAMILETH) - Final, Complete My Orders Orders - FAUSTINA MATA Cbc With Automated Diff (11/06/20 11:23) Comprehensive Metabolic Panel (11/06/20 11:23) Blood Culture (11/06/20 11:23) Sputum Culture (11/06/20 11:23) Urinalysis (11/06/20 11:23) Urine Culture (11/06/20 11:23) Protime With Inr (11/06/20 11:23) Partial Thromboplastin Time (11/06/20 11:23) Chest 1 View, Ap/Pa Only (11/06/20 11:23) Acetaminophen Tablet (Tylenol Tablet) (11/06/20 11:30) Ed Iv/Invasive Line Start (11/06/20 11:23) Ed Iv/Invasive Line Start (11/06/20 11:23) Vital Signs Adult Sepsis Patie Q15M (11/06/20 11:23) O2 (11/06/20 11:23) Remove Rings In Anticipation O (11/06/20 11:23) Lactic Acid Analyzer (11/06/20 11:23) Influenza A And B Antigens (11/06/20 11:23) Lactated Ringers (Lr 1000 Ml Iv Solution (11/06/20 11:30) Cefepime Injection (Maxipime Injection) (11/06/20 11:30) Vancomycin Injection (Vancomycin Injecti (11/06/20 11:23) Ed Iv/Invasive Line Start (11/06/20 11:23) Lactated Ringers (Lr 1000 Ml Iv Solution (11/06/20 11:30) Covid 19 Inhouse Test (11/06/20 11:23) Arterial Blood Gas (11/06/20 11:23) Dexamethasone Injection (Decadron Inje (11/06/20 11:30) Albuterol/Ipratropium Inhaler (Combivent (11/06/20 11:23) Fibrin Degradation Products (11/06/20 11:31) Hs C Reactive Protein (11/06/20 11:31) Procalcitonin (Pct) (11/06/20 11:31) Coronavirus Sars-Cov-2 So 2018 (11/06/20 11:25) Coronavirus Sars-Cov-2 So 2018 (11/06/20 12:31) Medications Given in ED Current Medications Medications Dose Ordered Sig/Sandra Route Start Time Stop Time Status Last Admin Dose Admin Acetaminophen 1,000 mg ONCE PRN PO 11/06/20 11:30 11/06/20 11:53 DC 11/06/20 11:42 1,000 MG Cefepime HCl 1000 mg/Sterile Water 10 ml @ 200 mls/hr ONCE ONCE IV 11/06/20 11:30 11/06/20 11:32 DC 11/06/20 11:57 200 MLS/HR Dexamethasone Sodium Phosphate 6 mg ONCE ONCE IV 11/06/20 11:30 11/06/20 11:31 DC 11/06/20 11:41 6 MG Lactated Ringer's 1,000 ml @ 0 mls/hr Q0M ONCE IV 11/06/20 11:30 11/06/20 11:31 DC 11/06/20 11:41 0 MLS/HR Vancomycin HCl 2000 mg/Sodium Chloride 500 ml @ 260 mls/hr 1123 ONCE IV 11/06/20 11:23 11/06/20 13:18 11/06/20 12:05 260 MLS/HR Vital Signs/I&O 11/06/20 11/06/20 11/06/20 11/06/20 11:17 12:00 12:06 12:43 Temp 39.6 Pulse 114 113 117 Resp 26 20 20 B/P (MAP) 107/79 (88) 124/49 (74) 126/89 Pulse Ox 98 99 100 95 O2 Delivery Nasal Cannula Trach Collar Trach Collar Trach Collar O2 Flow Rate 3.00 3.00 FiO2 99 Capillary Refill : Progress Note #1: Time: 11:37 Progress Note Septic work-up, 2 L of fluid which is greater than 20 mL/kg based on an adjusted ideal body weight of 92 kg. Suspect pneumonia versus viral atypical pneumonia so were going to go ahead and cover her with antibiotics cefepime and vancomycin 2 g to start. We will get a swab for Covid influenza and an ABG. Combivent 2 puffs through a spacer as she does have a little bit of expiratory wheeze. Because of suspicion for atypical pneumonia will also get a CRP, procalcitonin and a D-dimer. 6 mg Decadron IV x1. Progress Note #2: Time: 12:05 Progress Note The blood gas appears to be venous however it demonstrates sufficient information. Diagnostic Imaging Diagonstic Imaging: Xray Plain Films/CT/US/NM/MRI: chest Comments No acute cardiopulmonary process noted on 1 view chest x-ray compared to previous x-ray. Reviewed: Reviewed by Me Departure Communication (Admissions) Time/Spoke to Admitting Phy: 13:00 Discussed the case with Dr. Diaz and she agrees to admit the patient to the floor on her baseline oxygen with Lovenox broad-spectrum antibiotics and she will see the patient. Impression Primary Impression: Sepsis Qualified Codes: A41.9 - Sepsis, unspecified organism Additional Impressions: Pneumonia Qualified Codes: J18.9 - Pneumonia, unspecified organism Person under investigation for COVID-19 Disposition: ADMITTED INPATIENT Condition: Stable Admissions Decision to Admit Reason: Admit from ER (General) Decision to Admit/Date: Nov 06, 2020 Time/Decision to Admit Time: 12:00 Departure-Patient Inst. Referrals: SHARIFA BULLOCK MD (PCP/Family) Primary Care Physician FAUSTINA MATA Nov 06, 2020 11:30
[2020-11-06 11:50] LABS: ABG BASE EXCESS 7.5 MMOL/L (-2.5-2.5); ABG OXYGEN SATURATION 38 % (94-100); ABG PCO2 65 MMHG (35-45); ABG TCO2 34.4 MMOL/L (21.0-31.0)
[2020-11-06 11:51] LABS: BASOPHILS # (AUTO) 0.1 10^3/uL (0.0-0.1); BASOPHILS % (AUTO) 1 % (0-10); EOSINOPHILS % (AUTO) 0 % (0-10); HEMATOCRIT 39 % (35-52); HEMOGLOBIN 12.4 g/dL (11.5-16.0); LYMPHOCYTES # (AUTO) 1.7 10^3/uL (1.0-4.0); LYMPHOCYTES % (AUTO) 13 % (12-44); MEAN CORPUSCULAR HEMOGLOBIN 27 pg (25-34); MEAN CORPUSCULAR HGB CONC 32 g/dL (32-36); MEAN CORPUSCULAR VOLUME 85 fL (80-99); MEAN PLATELET VOLUME 10.9 fL (9.0-12.2); MONOCYTES # (AUTO) 1.1 10^3/uL (0.0-1.0); MONOCYTES % (AUTO) 9 % (0-12); NEUTROPHILS # (AUTO) 9.7 10^3/uL (1.8-7.8); NEUTROPHILS % (AUTO) 77 % (42-75); PLATELET COUNT 249 10^3/uL (130-400); WHITE BLOOD COUNT 12.7 10^3/uL (4.3-11.0)
[2020-11-06 11:59] LABS: ABG PH 7.34 (7.37-7.43); ABG PO2 35 MMHG (79-93); ALLENS TEST YES-POS
[2020-11-06 12:00] LABS: INSPIRED O2 3; PATIENT TEMP 103.1; VENTILATOR NO
[2020-11-06 12:14] LABS: FIBRIN DEGRADATION PRODUCTS 3.85 UG/ML (0.00-0.49); INR 1.2 (0.8-1.4); PROTHROMBIN TIME PATIENT 15.3 SEC (12.2-14.7)
[2020-11-06 12:16] LABS: ALBUMIN 3.8 GM/DL (3.2-4.5); BILIRUBIN,TOTAL 0.8 MG/DL (0.1-1.0); CALCIUM 9.1 MG/DL (8.5-10.1); CREATININE SERUM 1.32 MG/DL (0.60-1.30); POTASSIUM 3.3 MMOL/L (3.6-5.0); TOTAL PROTEIN 8.7 GM/DL (6.4-8.2)
--- NOTE | 2020-11-06 13:02 | Diagnostic Imaging Report ---
INDICATION: Shortness of air. Sepsis. COMPARISON: 08/27/2020 FINDINGS: Single frontal radiograph view of the chest was obtained and demonstrates mild enlargement of the cardiac silhouette. This may be exaggerated by portable technique. Pulmonary vasculature is within normal limits. Indwelling tracheostomy tube is also seen with tip at the clavicular heads. Lungs are clear. There is no focal consolidation, large effusion, nor pneumothorax. Osseous structures show no gross acute abnormalities. IMPRESSION: 1. Mild enlargement of the cardiac silhouette, which may be exaggerated by portable technique. There is otherwise no evidence of failure or focal infiltrate. Dictated by: Dictated on workstation # [id number]
[2020-11-06] MEDS ORDERED: ONDANSETRON 4 MG/2 ML (SDV) Z0FRAN IV PRN (14:15)
[2020-11-06] MEDS ORDERED: IBUPROFEN 600 MG (MOTRIN) TAB PO PRN (14:15)
[2020-11-06] MEDS ORDERED: ACETAMINOPHEN 325 MG TABLET PO PRN (14:15)
[2020-11-06 14:24] VITALS: BP 110/71
[2020-11-06] MEDS ORDERED: CATHETER FLUSH 10 ML SYR IV PRN (14:30)
[2020-11-06] MEDS: LACTATED RINGERS 1,000 ML IV SCH (14:35)
[2020-11-06 16:23] VITALS: BP 108/66
[2020-11-06 16:40] VITALS: BP 108/66
[2020-11-06] MEDS ORDERED: RT-ALBUTEROL/IPRATROPIUM 3 ML (DUONEB) VIAL INH PRN (17:00)
[2020-11-06] MEDS ORDERED: CEFEPIME 1,000 MG/SWFI 10 ML IV PUSH IV SCH ×2 (18:00)
[2020-11-06] MEDS: ENOXAPARIN 60 MG/0.6 ML (LOVENOX) SYR SC SCH (18:12)
[2020-11-06 19:53] VITALS: BP 140/66
[2020-11-06] MEDS: CEFDINIR 300 MG (OMNICEF) CAP PO SCH (20:28)
[2020-11-06] MEDS: RT-ALBUTEROL/IPRATROPIUM 3 ML (DUONEB) VIAL INH SCH (21:09)
[2020-11-06 23:50] VITALS: BP 103/65
[2020-11-06] MEDS: VANCOMYCIN 1500 MG/NS 500 ML IVPB IV SCH ×2 (23:53)
[2020-11-07] MEDS: RT-ALBUTEROL/IPRATROPIUM 3 ML (DUONEB) VIAL INH SCH ×4 (02:25→18:43)
[2020-11-07] MEDS: ENOXAPARIN 60 MG/0.6 ML (LOVENOX) SYR SC SCH ×2 (04:09→17:50)
[2020-11-07 04:11] VITALS: BP 114/73
[2020-11-07 05:42] LABS: BASOPHILS % (AUTO) 0 % (0-10); EOSINOPHILS % (AUTO) 0 % (0-10); HEMATOCRIT 39 % (35-52); HEMOGLOBIN 12.3 g/dL (11.5-16.0); LYMPHOCYTES % (AUTO) 7 % (12-44); MEAN CORPUSCULAR HEMOGLOBIN 27 pg (25-34); MEAN CORPUSCULAR HGB CONC 32 g/dL (32-36); MEAN CORPUSCULAR VOLUME 84 fL (80-99); MEAN PLATELET VOLUME 10.3 fL (9.0-12.2); MONOCYTES # (AUTO) 0.7 10^3/uL (0.0-1.0); MONOCYTES % (AUTO) 5 % (0-12); NEUTROPHILS # (AUTO) 12.1 10^3/uL (1.8-7.8); NEUTROPHILS % (AUTO) 87 % (42-75); PLATELET COUNT 232 10^3/uL (130-400)
[2020-11-07 05:58] LABS: ALBUMIN 3.5 GM/DL (3.2-4.5)
[2020-11-07 05:59] LABS: POTASSIUM 3.3 MMOL/L (3.6-5.0)
[2020-11-07 06:01] LABS: TOTAL PROTEIN 8.1 GM/DL (6.4-8.2)
[2020-11-07 06:03] LABS: BILIRUBIN,TOTAL 0.5 MG/DL (0.1-1.0)
[2020-11-07 06:05] LABS: CREATININE SERUM 1.32 MG/DL (0.60-1.30)
--- NOTE | 2020-11-07 07:33 | Diagnostic Imaging Report ---
INDICATION: Pneumonia. COMPARISON: 11/06/2020 FINDINGS: Single frontal radiograph view of the chest was obtained and demonstrates indwelling tracheostomy tube with tip just below the clavicular heads. Cardiac silhouette remains moderately enlarged. Pulmonary vasculature, however is within normal limits. Lungs remain clear. There is no focal consolidation, large effusion, nor pneumothorax. Osseous structures are stable. IMPRESSION: 1. Moderate cardiomegaly, but no evidence of failure or focal infiltrate. Dictated by: Dictated on workstation # [id number]
[2020-11-07] MEDS: LACTATED RINGERS 1,000 ML IV SCH ×3 (07:44→22:19)
[2020-11-07] MEDS ORDERED: KCL 20 MEQ TAB (K-DUR) PO NR (07:48)
[2020-11-07 08:00] VITALS: BP 100/67
[2020-11-07] MEDS: CEFDINIR 300 MG (OMNICEF) CAP PO SCH ×2 (09:42→19:50)
[2020-11-07] MEDS: FLUoxetine HCL 20 MG (PROzac) CAP PO SCH (09:43)
[2020-11-07] MEDS ORDERED: ALBU2.5V4 NEB (10:01)
[2020-11-07] MEDS ORDERED: FLUO40CA PO (10:01)
[2020-11-07] MEDS ORDERED: LIDO700A45 TD (10:01)
[2020-11-07] MEDS ORDERED: CEFU250T80 PO (10:01)
[2020-11-07] MEDS ORDERED: TIOT18CA2 INH (10:01)
[2020-11-07] MEDS ORDERED: POTASSIUM CL 10% PO (10:01)
[2020-11-07] MEDS ORDERED: ACET-2267 PO (10:01)
--- NOTE | 2020-11-07 10:46 | History & Physical ---
HPI History of Present Illness: 59 yo female came to ER due to persistent worsening of symptoms of malaise that started 6 days ago, started feeling tired and weaker. Yesterday was so exhausted and couldn't get up at all, felt dazed, couldn't eat and got dehydrated. Threw up a couple of times. Has had diarrhea as well. Noted her tongue was turning wh ite. She went to see Dr. Aaron at clinic yesterday and she sent her to the ER. She also has been coughing up mucous, possibly blood tinged/brownish from her trach. Has walker but typically doesn't use it most of the time and has needed to use it with this. She was prescribed cefuroxime by Dr. Yuan on 11/03 for her increased sputum and was taking it. She normally uses 3 lpm of supplemental oxygen. She has a tracheostomy secondary to sarcoidosis. She feels much better today. She also notes she had her first dose of COVID vaccine on 10/27. Source: patient Date seen by provider: Nov 07, 2020 Time Seen by Provider: 10:42 Attending Physician Marcia Diaz MD PCP Dorcas Aaron MD Consult Date of Admission Nov 06, 2020 at 12:40 Home Medications Home Medications Reviewed patient Home Medication Reconciliation performed by pharmacy medication reconciliations application technician and/or nursing. Patients Allergies have been reviewed. Allergies Coded Allergies: No Known Drug Allergies (Unverified , 06/18/17) VVU-Lzihaj-Mpwdsg Hx Patient Social History Drug of Choice: DENIES/ hx of drug use Smoking Status: Former Smoker Former smoker/When Quit: Aug 08, 2003 2nd Hand Smoke Exposure: No Recent Hopitalizations: No Alcohol Use?: No (history of alcoholism, quit in 2006) Substance type: Other (history of cocaine, last use February 2017) Have you traveled recently?: No Immunizations Up To Date Tetanus Booster (TDap): Unknown Date of Influenza Vaccine: Jun 08, 2021 Past Medical History PMHx: Sarcoidosis with tracheostomy COPD Asthma HTN Prediabetes SurgHx: Trachostomy placement Family Medical History Significant Family History: Hypertension, Lung Disease Review of Systems ([facility]) Constitutional: chills, fever, malaise, weakness Respiratory: cough Cardiovascular: No chest pain Gastrointestinal: No abdominal pain; diarrhea, nausea, vomiting Genitourinary: dysuria Musculoskeletal: No joint pain, No muscle pain Skin: No rash Reviewed Test Results Reviewed Test Results Lab Laboratory Tests Test 11/06/20 11:25 11/06/20 11:35 11/07/20 05:32 Range/Units White Blood Count 12.7 H 14.0 H 4.3-11.0 10^3/uL Red Blood Count 4.56 4.63 3.80-5.11 10^6/uL Hemoglobin 12.4 12.3 11.5-16.0 g/dL Hematocrit 39 39 35-52 % Mean Corpuscular Volume 85 84 80-99 fL Mean Corpuscular Hemoglobin 27 27 25-34 pg Mean Corpuscular Hemoglobin Concent 32 32 32-36 g/dL Red Cell Distribution Width 15.0 H 14.6 H 10.0-14.5 % Platelet Count 249 232 130-400 10^3/uL Mean Platelet Volume 10.9 10.3 9.0-12.2 fL Immature Granulocyte % (Auto) 1 1 % Neutrophils (%) (Auto) 77 H 87 H 42-75 % Lymphocytes (%) (Auto) 13 7 L 12-44 % Monocytes (%) (Auto) 9 5 0-12 % Eosinophils (%) (Auto) 0 0 0-10 % Basophils (%) (Auto) 1 0 0-10 % Neutrophils # (Auto) 9.7 H 12.1 H 1.8-7.8 10^3/uL Lymphocytes # (Auto) 1.7 1.0 1.0-4.0 10^3/uL Monocytes # (Auto) 1.1 H 0.7 0.0-1.0 10^3/uL Eosinophils # (Auto) 0.0 0.0 0.0-0.3 10^3/uL Basophils # (Auto) 0.1 0.0 0.0-0.1 10^3/uL Immature Granulocyte # (Auto) 0.1 0.1 0.0-0.1 10^3/uL Prothrombin Time 15.3 H 12.2-14.7 SEC INR Comment 1.2 0.8-1.4 Activated Partial Thromboplast Time 28 24-35 SEC D-Dimer 3.85 H 0.00-0.49 UG/ML Sodium Level 137 137 135-145 MMOL/L Potassium Level 3.3 L 3.3 L 3.6-5.0 MMOL/L Chloride Level 95 L 98 98-107 MMOL/L Carbon Dioxide Level 28 25 21-32 MMOL/L Anion Gap 14 14 5-14 MMOL/L Blood Urea Nitrogen 9 19 H 7-18 MG/DL Creatinine 1.32 H 1.32 H 0.60-1.30 MG/DL Estimat Glomerular Filtration Rate 50 50 BUN/Creatinine Ratio 7 14 Glucose Level 109 H 144 H 70-105 MG/DL Lactic Acid Level 1.53 0.50-2.00 MMOL/L Calcium Level 9.1 9.0 8.5-10.1 MG/DL Corrected Calcium 9.3 9.4 8.5-10.1 MG/DL Total Bilirubin 0.8 0.5 0.1-1.0 MG/DL Aspartate Amino Transf (AST/SGOT) 45 H 58 H 5-34 U/L Alanine Aminotransferase (ALT/SGPT) 26 35 0-55 U/L Alkaline Phosphatase 103 107 40-136 U/L C-Reactive Protein High Sensitivity 29.72 H 0.00-0.50 MG/DL Total Protein 8.7 H 8.1 6.4-8.2 GM/DL Albumin 3.8 3.5 3.2-4.5 GM/DL Procalcitonin 0.24 H <0.10 NG/ML Coronavirus (COVID-19)(PCR) Negative Negative Coronavirus 2019 (VIVIANE) Negative Negative Blood Gas Puncture Site UNK Blood Gas Patient Temperature 103.1 Arterial Blood pH 7.34 *L 7.37-7.43 Arterial Blood Partial Pressure CO2 65 H 35-45 MMHG Arterial Blood Partial Pressure O2 35 *L 79-93 MMHG Arterial Blood HCO3 33 H 23-27 MMOL/L Arterial Blood Total CO2 34.4 H 21.0-31.0 MMOL/L Arterial Blood Oxygen Saturation 38 L 94-100 % Arterial Blood Base Excess 7.5 H -2.5-2.5 MMOL/L Aj Test YES-POS Blood Gas Ventilator Setting NO Blood Gas Inspired Oxygen 3 Radiology CXR 11/06: IMPRESSION: 1. Mild enlargement of the cardiac silhouette, which may be exaggerated by portable technique. There is otherwise no evidence of failure or focal infiltrate. Physical Exam-([facility]) Physical Exam Vital Signs VS - Last 72 Hours, by Label 11/06/20 11/06/20 11/06/20 11/06/20 11:17 12:00 12:06 12:43 Temp 39.6 Pulse 114 113 117 Resp 26 20 20 B/P (MAP) 107/79 (88) 124/49 (74) 126/89 Pulse Ox 98 99 100 95 O2 Delivery Nasal Cannula Trach Collar Trach Collar Trach Collar O2 Flow Rate 3.00 3.00 FiO2 99 11/06/20 11/06/20 11/06/20 11/06/20 12:58 14:24 16:23 16:30 Temp 36.4 36.4 Pulse 108 98 92 Resp 20 26 18 B/P (MAP) 129/85 110/71 (84) 108/66 (80) Pulse Ox 96 96 100 O2 Delivery Trach Collar Trach Collar Trach Collar Trach Collar O2 Flow Rate 3.00 5.00 5.00 5.00 11/06/20 11/06/20 11/06/20 11/06/20 16:40 19:53 20:00 21:09 Temp 36.4 30.4 Pulse 92 81 Resp 18 B/P (MAP) 140/66 (90) Pulse Ox 100 96 93 O2 Delivery Trach Collar Trach Collar FI02 O2 Flow Rate 8.00 5.00 FiO2 30 30 11/06/20 11/07/20 11/07/20 11/07/20 23:50 02:25 04:11 08:00 Temp 36.3 36.0 36.0 Pulse 76 84 78 Resp 16 16 20 B/P (MAP) 103/65 (78) 114/73 (87) 100/67 (78) Pulse Ox 93 93 93 91 O2 Delivery Trach Collar FI02 Trach Collar Trach Collar O2 Flow Rate 8.00 8.00 9.00 FiO2 30 11/07/20 11/07/20 11/07/20 08:00 09:00 14:18 Pulse Ox 97 97 95 O2 Delivery Trach Collar Trach Collar Trach Collar O2 Flow Rate 10.00 10.00 10.00 FiO2 99 28 28 Capillary Refill : Less Than 3 Seconds General Appearance: no apparent distress Neck: other (tracheostomy in place) Respiratory: rhonchi Cardiovascular: regular rate, rhythm, no murmur Gastrointestinal: normal bowel sounds, non tender, soft Extremities: No pedal edema Neurologic/Psychiatric: alert, normal mood/affect Skin: normal color, warm/dry Assessment/Plan Assessment/Plan Admission Status: Inpatient Order (span 2 midnights) Reason for Inpatient Admission: Pneumonia with sepsis and severe underlying comorbidities (1) Sepsis Status: Acute Assessment & Plan: Suspect secondary to pneumonia. Qualifiers: Qualified Codes: A41.9 - Sepsis, unspecified organism (2) Pneumonia Status: Acute Assessment & Plan: Started on cefepime and vancomycin, but IV access lost and unable to be recovered last night, given cefdinir PO last night, will resume cefepime and vanc. Qualifiers: Qualified Codes: J18.9 - Pneumonia, unspecified organism (3) Hypertension Status: Chronic Qualifiers: Qualified Codes: I10 - Essential (primary) hypertension (4) COPD (chronic obstructive pulmonary disease) Status: Chronic (5) Person under investigation for COVID-19 Status: Resolved Assessment & Plan: Negative rapid and send-out PCR. (6) Sarcoidosis of lung Status: Chronic (7) Elevated d-dimer Status: Acute Assessment & Plan: Check CTA given worsening hypoxia. (8) Acute and chronic respiratory failure with hypoxia Status: Acute Assessment & Plan: Requiring marked increase in baseline supplemental oxygen. Suspect pneumonia related, but will check CTA also as noted. (9) DVT prophylaxis Status: Acute Assessment & Plan: Enoxaparin MARCIA DIAZ MD Nov 07, 2020 10:46
[2020-11-07] MEDS ORDERED: LIDOCAINE 4% (SALONPAS) PATCH TOP PRN (11:00)
[2020-11-07] MEDS ORDERED: IOHEXOL 350 MG/ML 100 ML (OMNIPAQUE 350) VIAL IV ONE (11:15)
[2020-11-07] MEDS ORDERED: NS 100 ML (IVPB) BAG IV ONE (11:15)
[2020-11-07] MEDS ORDERED: HOLD METFORMIN - RECEIVED CONTRAST 20 ML VIAL IV SCH (11:15)
[2020-11-07 12:00] VITALS: BP 108/47
--- NOTE | 2020-11-07 12:41 | Diagnostic Imaging Report ---
PROCEDURE: CT angiography of the chest with contrast. TECHNIQUE: Multiple contiguous axial images were obtained through the chest after uneventful bolus administration of intravenous contrast. 3D reconstructed CTA MIP acquisitions were also performed. Auto Exposure Controls were utilized during the CT exam to meet ALARA standards for radiation dose reduction. INDICATION: Shortness of breath, hypoxia, elevated D-dimer. FINDINGS: Pulmonary arterial branch is widely patent. No filling defect. No PE. There is an infiltrate in the right lower lobe consistent with pneumonia. There is no effusion or pneumothorax. There is a trach tube tip above the kimmie. A right upper paratracheal mediastinal lymph node measured 1.7 x 1.5 cm. One cm lower right paratracheal mediastinal nodes and 1.5 cm subcarinal nodes partially calcified present. These are not substantially changed. There is some diffuse integumentary edema having become apparent as well as mild adenopathy in the right axilla, the largest node 2.1 x 1.8 cm. No acute bony abnormality. No suspicious soft tissue density lung mass. No suspicious lytic or sclerotic lesion. Visualized upper abdomen nonacute. IMPRESSION: Findings of right lower lobe pneumonia. Negative for PE or acute aortic disease. Mild adenopathy in the mediastinum, not significantly changed. New mild right axillary adenopathy. No soft tissue density lung mass. No chest effusion or pneumothorax. No suspicious bony finding. Dictated by: Dictated on workstation # [id number]
[2020-11-07] MEDS: VANCOMYCIN 1500 MG/NS 500 ML IVPB IV SCH ×4 (12:58→23:29)
[2020-11-07 16:00] VITALS: BP 115/73
[2020-11-07] MEDS: ROSUVASTATIN 20 MG (CRESTOR) TABLET PO SCH (19:50)
[2020-11-07 20:00] VITALS: BP 106/73
[2020-11-07 23:31] VITALS: BP 107/62
[2020-11-08] MEDS: RT-ALBUTEROL/IPRATROPIUM 3 ML (DUONEB) VIAL INH SCH ×4 (02:17→21:23)
[2020-11-08] MEDS: ENOXAPARIN 60 MG/0.6 ML (LOVENOX) SYR SC SCH ×2 (04:24→17:51)
[2020-11-08 04:25] VITALS: BP 128/75
[2020-11-08 04:41] LABS: BASOPHILS % (AUTO) 0 % (0-10); EOSINOPHILS % (AUTO) 0 % (0-10); HEMATOCRIT 36 % (35-52); HEMOGLOBIN 11.4 g/dL (11.5-16.0); LYMPHOCYTES # (AUTO) 1.6 10^3/uL (1.0-4.0); LYMPHOCYTES % (AUTO) 9 % (12-44); MEAN CORPUSCULAR HEMOGLOBIN 27 pg (25-34); MEAN CORPUSCULAR HGB CONC 32 g/dL (32-36); MEAN CORPUSCULAR VOLUME 84 fL (80-99); MEAN PLATELET VOLUME 10.4 fL (9.0-12.2); MONOCYTES # (AUTO) 0.9 10^3/uL (0.0-1.0); MONOCYTES % (AUTO) 6 % (0-12); NEUTROPHILS # (AUTO) 14.3 10^3/uL (1.8-7.8); NEUTROPHILS % (AUTO) 84 % (42-75); PLATELET COUNT 275 10^3/uL (130-400)
[2020-11-08 04:57] LABS: BUN/CREATININE RATIO 20; CALCIUM 8.5 MG/DL (8.5-10.1); CARBON DIOXIDE 25 MMOL/L (21-32); CHLORIDE 101 MMOL/L (98-107); GFR ESTIMATED > 60; GLUCOSE 131 MG/DL (70-105); POTASSIUM 3.4 MMOL/L (3.6-5.0); SODIUM 138 MMOL/L (135-145)
[2020-11-08] MEDS: LACTATED RINGERS 1,000 ML IV SCH ×3 (05:15→11:50)
[2020-11-08 05:41] LABS: BAND NEUTROPHILS 14 %; LYMPHOCYTES % (MANUAL) 6 %; MONOCYTES % (MANUAL) 6 %; NEUTROPHILS % (MANUAL) 74 %
[2020-11-08 05:42] LABS: RBC MORPH NORMAL; TOXIC GRANULATION/VACUOLAZATIO 2+
[2020-11-08 08:00] VITALS: BP 115/66
[2020-11-08] MEDS: CEFDINIR 300 MG (OMNICEF) CAP PO SCH ×2 (09:00→20:30)
[2020-11-08] MEDS: FLUoxetine HCL 20 MG (PROzac) CAP PO SCH (09:00)
[2020-11-08] MEDS: VANCOMYCIN 1500 MG/NS 500 ML IVPB IV SCH ×2 (11:50)
[2020-11-08 12:00] VITALS: BP 106/57
--- NOTE | 2020-11-08 12:20 | Progress Note - Hospitalist ---
Subjective HPI/CC On Admission Date Seen by Provider: Nov 08, 2020 Time Seen by Provider: 11:45 Subjective/Events-last exam Patient is feeling much better and has a lot of her strength back. She does complain of weight gain and increased of edema of her feet and request that the IV fluids be stopped and that she be restarted on her Lasix. Review of Systems Pulmonary: Dyspnea Neurological: Weakness Focused Exam Lactate Level 11/06/20 11:25: Lactic Acid Level 1.53 Objective Exam Vital Signs Vital Signs Date Time Temp Pulse Resp B/P (MAP) Pulse Ox O2 Delivery O2 Flow Rate FiO2 11/08/20 12:00 36.0 71 16 106/57 (73) 93 Trach Collar 9.00 11/08/20 08:46 28 Capillary Refill : Less Than 3 Seconds General Appearance: No Apparent Distress, WD/WN, Obese Neck: Limited Range of Motion Respiratory: Lungs Clear, Normal Breath Sounds, No Accessory Muscle Use, No Respiratory Distress Cardiovascular: Regular Rate, Rhythm, No Gallop, No Murmur Gastrointestinal: Soft Extremity: Pedal Edema Results/Procedures Lab Laboratory Tests 11/08/20 04:25 Patient resulted labs reviewed. Assessment/Plan Assessment and Plan Assess & Plan/Chief Complaint Sepsis resolving Right lower lobe pneumonia day #3 vancomycin and cefdinir-cultures negative Sarcoidosis Edema will Hep-Lock IV fluids give one dose of Lasix Morbid obesity CAROL MAYA MD Nov 08, 2020 12:20
[2020-11-08] MEDS ORDERED: FUROSEMIDE 40 MG/4 ML INJ (LASIX) IVP ONE (14:00)
[2020-11-08 16:03] VITALS: BP 109/66
[2020-11-08 19:06] VITALS: BP 112/67
[2020-11-08] MEDS: ROSUVASTATIN 20 MG (CRESTOR) TABLET PO SCH (20:30)
[2020-11-09 00:19] VITALS: BP 94/58
[2020-11-09] MEDS: VANCOMYCIN 1500 MG/NS 500 ML IVPB IV SCH ×2 (00:23)
[2020-11-09] MEDS: RT-ALBUTEROL/IPRATROPIUM 3 ML (DUONEB) VIAL INH SCH ×4 (03:05→20:54)
[2020-11-09 04:42] VITALS: BP 115/77
[2020-11-09 05:06] LABS: BASOPHILS % (AUTO) 0 % (0-10); EOSINOPHILS # (AUTO) 0.1 10^3/uL (0.0-0.3); EOSINOPHILS % (AUTO) 1 % (0-10); HEMATOCRIT 32 % (35-52); HEMOGLOBIN 10.1 g/dL (11.5-16.0); LYMPHOCYTES # (AUTO) 2.3 10^3/uL (1.0-4.0); LYMPHOCYTES % (AUTO) 22 % (12-44); MEAN CORPUSCULAR HEMOGLOBIN 27 pg (25-34); MEAN CORPUSCULAR HGB CONC 32 g/dL (32-36); MEAN CORPUSCULAR VOLUME 85 fL (80-99); MEAN PLATELET VOLUME 10.1 fL (9.0-12.2); MONOCYTES % (AUTO) 9 % (0-12); NEUTROPHILS # (AUTO) 6.8 10^3/uL (1.8-7.8); NEUTROPHILS % (AUTO) 66 % (42-75); PLATELET COUNT 246 10^3/uL (130-400); WHITE BLOOD COUNT 10.4 10^3/uL (4.3-11.0)
[2020-11-09] MEDS: ENOXAPARIN 60 MG/0.6 ML (LOVENOX) SYR SC SCH ×2 (05:11→17:06)
[2020-11-09 05:28] LABS: ALBUMIN 2.8 GM/DL (3.2-4.5); BILIRUBIN,TOTAL 0.3 MG/DL (0.1-1.0); CREATININE SERUM 1.2 MG/DL (0.60-1.30); TOTAL PROTEIN 6.2 GM/DL (6.4-8.2)
[2020-11-09 08:00] VITALS: BP 105/61
[2020-11-09] MEDS: FLUoxetine HCL 20 MG (PROzac) CAP PO SCH (08:43)
[2020-11-09] MEDS: CEFDINIR 300 MG (OMNICEF) CAP PO SCH ×2 (08:43→19:35)
[2020-11-09 12:00] VITALS: BP 159/67
--- NOTE | 2020-11-09 12:14 | Progress Note - Hospitalist ---
Subjective HPI/CC On Admission Date Seen by Provider: Nov 09, 2020 Time Seen by Provider: 11:30 Subjective/Events-last exam Patient's biggest complaint is about her diet. She agrees to go on a heart healthy diet. Otherwise she is feeling much stronger Review of Systems Pulmonary: Dyspnea Neurological: Weakness Objective Exam Vital Signs Vital Signs Date Time Temp Pulse Resp B/P (MAP) Pulse Ox O2 Delivery O2 Flow Rate FiO2 11/09/20 12:00 36.0 69 24 159/67 (97) 97 Trach Collar 7.00 11/09/20 10:25 28 Capillary Refill : Less Than 3 Seconds General Appearance: No Apparent Distress, Obese Neck: Limited Range of Motion Respiratory: Chest Non Tender, Normal Breath Sounds, No Accessory Muscle Use, No Respiratory Distress, Decreased Breath Sounds Cardiovascular: Regular Rate, Rhythm, No Gallop, No Murmur Gastrointestinal: Normal Bowel Sounds, Soft Extremity: Non Tender, Pedal Edema Results/Procedures Lab Laboratory Tests 11/09/20 04:55 Patient resulted labs reviewed. Assessment/Plan Assessment and Plan Assess & Plan/Chief Complaint Sepsis resolving Right lower lobe pneumonia day #4 vancomycin and cefdinir-cultures negative Sarcoidosis Edema will Hep-Lock IV fluids give one dose of Lasix Morbid obesity We will recheck chest x-ray tomorrow probable discharge Tuesday CAROL MAYA MD Nov 09, 2020 12:14
[2020-11-09 16:00] VITALS: BP 110/52
[2020-11-09 19:19] VITALS: BP 101/66
[2020-11-09] MEDS: ROSUVASTATIN 20 MG (CRESTOR) TABLET PO SCH (19:35)
[2020-11-10] VITALS: BP 109/72
[2020-11-10] MEDS: RT-ALBUTEROL/IPRATROPIUM 3 ML (DUONEB) VIAL INH SCH ×2 (02:24→07:14)
[2020-11-10 03:30] VITALS: BP 102/64
[2020-11-10] MEDS: ENOXAPARIN 60 MG/0.6 ML (LOVENOX) SYR SC SCH (04:44)
[2020-11-10 05:07] LABS: BASOPHILS # (AUTO) 0.1 10^3/uL (0.0-0.1); BASOPHILS % (AUTO) 1 % (0-10); EOSINOPHILS # (AUTO) 0.2 10^3/uL (0.0-0.3); EOSINOPHILS % (AUTO) 2 % (0-10); HEMATOCRIT 34 % (35-52); HEMOGLOBIN 10.6 g/dL (11.5-16.0); LYMPHOCYTES # (AUTO) 2.3 10^3/uL (1.0-4.0); LYMPHOCYTES % (AUTO) 27 % (12-44); MEAN CORPUSCULAR HEMOGLOBIN 26 pg (25-34); MEAN CORPUSCULAR HGB CONC 31 g/dL (32-36); MEAN CORPUSCULAR VOLUME 85 fL (80-99); MEAN PLATELET VOLUME 10.2 fL (9.0-12.2); MONOCYTES # (AUTO) 0.7 10^3/uL (0.0-1.0); MONOCYTES % (AUTO) 8 % (0-12); NEUTROPHILS # (AUTO) 5.1 10^3/uL (1.8-7.8); NEUTROPHILS % (AUTO) 59 % (42-75); PLATELET COUNT 292 10^3/uL (130-400); WHITE BLOOD COUNT 8.7 10^3/uL (4.3-11.0)
[2020-11-10 05:26] LABS: ALBUMIN 3.1 GM/DL (3.2-4.5); BILIRUBIN,TOTAL 0.3 MG/DL (0.1-1.0); CALCIUM 8.1 MG/DL (8.5-10.1); CREATININE SERUM 1.17 MG/DL (0.60-1.30); TOTAL PROTEIN 6.6 GM/DL (6.4-8.2)
[2020-11-10 07:34] VITALS: BP 112/65
[2020-11-10] MEDS: CEFDINIR 300 MG (OMNICEF) CAP PO SCH (08:50)
[2020-11-10] MEDS: FLUoxetine HCL 20 MG (PROzac) CAP PO SCH (08:50)
--- NOTE | 2020-11-10 10:04 | Progress Note - Hospitalist ---
Subjective HPI/CC On Admission Date Seen by Provider: Nov 10, 2020 Objective Exam Vital Signs Vital Signs Date Time Temp Pulse Resp B/P (MAP) Pulse Ox O2 Delivery O2 Flow Rate FiO2 11/10/20 08:00 Trach Collar 10.00 11/10/20 07:34 36.0 78 20 112/65 (81) 96 11/10/20 07:14 28 Capillary Refill : Less Than 3 Seconds Results/Procedures Lab Laboratory Tests 11/10/20 04:45 Patient resulted labs reviewed. ROBINA MELLO DO Nov 10, 2020 10:04
[2020-11-10] MEDS ORDERED: KCL 10 MEQ TAB (MICRO K) PO ONE (10:15)
--- NOTE | 2020-11-10 10:15 | Diagnostic Imaging Report ---
INDICATION: Pneumonia, follow-up. Time of exam 9:40 AM Correlation is made with prior chest from 11/07/2020. Tracheostomy tube has tip above the kimmie. There is some patchy airspace infiltrate in the right lung base, similar to prior exam. There is some linear atelectasis or scarring at the left mid to lower lung field. Otherwise left lung is clear. The pulmonary vascularity is normal. No effusion is detected. There is no pneumothorax. IMPRESSION: Patchy air space pneumonia right lung base, similar to examination from 3 days earlier. Dictated by: Dictated on workstation # [id number]
[2020-11-10] MEDS ORDERED: CEFD300C3 PO (10:27)
--- NOTE | 2020-11-10 10:28 | Discharge Summary ---
Discharge Summary Hospital Course Was the Problem List Reviewed?: Yes Problems/Dx: (1) Acute and chronic respiratory failure with hypoxia Status: Acute (2) Sarcoidosis of lung Status: Chronic (3) Pneumonia Status: Acute Qualifiers: Qualified Codes: J18.9 - Pneumonia, unspecified organism (4) COPD (chronic obstructive pulmonary disease) Status: Chronic (5) Hypertension Status: Chronic Qualifiers: Qualified Codes: I10 - Essential (primary) hypertension (6) Sepsis Status: Acute Qualifiers: Qualified Codes: A41.9 - Sepsis, unspecified organism (7) DVT prophylaxis Status: Acute (8) Elevated d-dimer Status: Acute (9) Person under investigation for COVID-19 Status: Resolved Hospital Course Date of Admission: Nov 06, 2020 at 12:40 Admission Diagnosis : Family Physician/Provider: Dorcas Aaron MD Date of Discharge: 11/10/20 Discharge Diagnosis: acute on chronic resp failure, sepsis, PNA, sarcoidosis, trach in place Hospital Course: Hospital Course: Pt had an uneventful hospital course after she was admitted, ruled out Covid, she remained on oxygen via her trach that she has in place for severe sleep apnea and sarcoidosis. She was placed on antibiotics for right lower lobe pneumonia and she denied any need for PT and OT and she does have skilled and home care that will be restarted and pt overall had no needs at time of DC. Labs and Pending Lab Test: Laboratory Tests 11/10/20 04:45: White Blood Count 8.7, Red Blood Count 4.03, Hemoglobin 10.6L, Hematocrit 34L, Mean Corpuscular Volume 85, Mean Corpuscular Hemoglobin 26, Mean Corpuscular Hemoglobin Concent 31L, Red Cell Distribution Width 15.6H, Platelet Count 292, Mean Platelet Volume 10.2, Immature Granulocyte % (Auto) 4, Neutrophils (%) (Auto) 59, Lymphocytes (%) (Auto) 27, Monocytes (%) (Auto) 8, Eosinophils (%) ( Auto) 2, Basophils (%) (Auto) 1, Neutrophils # (Auto) 5.1, Lymphocytes # (Auto) 2.3, Monocytes # (Auto) 0.7, Eosinophils # (Auto) 0.2, Basophils # (Auto) 0.1, Immature Granulocyte # (Auto) 0.4H, Sodium Level 145, Potassium Level 3.0L, Chloride Level 106, Carbon Dioxide Level 26, Anion Gap 13, Blood Urea Nitrogen 20H, Creatinine 1.17, Estimat Glomerular Filtration Rate 58, BUN/Creatinine Ratio 17, Glucose Level 93, Calcium Level 8.1L, Corrected Calcium 8.8, Total Bilirubin 0.3, Aspartate Amino Transf (AST/SGOT) 17, Alanine Aminotransferase (ALT/SGPT) 25, Alkaline Phosphatase 91, Total Protein 6.6, Albumin 3.1L Microbiology 11/06/20 Blood Culture - Preliminary, Resulted No growth 11/06/20 Influenza Types A,B Antigen (YAMILETH) - Final, Complete Home Meds Active Reported Tylenol Extra Strength (Acetaminophen) 500 Mg Tablet 1,000 Mg PO Q8H PRN [Potassium Cl 10%] 20MEQ/15ML Soln 15 Ml PO DAILY Fluoxetine HCl 40 Mg Capsule 40 Mg PO DAILY Albuterol Sulfate 2.5 Mg/3 Ml Vial.neb 3 Ml NEB Q6H PRN Spiriva (Tiotropium [employer]) 1 Inh Aerp 1 Puff INH DAILY Lidocaine 5% Patch (Lidocaine) 1 Each Adh..patch 1 Patch TD DAILY PRN APPLIES TO SHOULDER OR BACK Cefuroxime (Cefuroxime Axetil) 250 Mg Tablet 250 Mg PO BID FILLED 11-03-2020 #20/10 DAY SUPPLY Rosuvastatin Calcium 40 Mg Tablet 40 Mg PO DAILY Furosemide 20 Mg Tablet 20 Mg PO DAILY Hydrochlorothiazide 25 Mg Tablet 25 Mg PO DAILY Assessment/Pt Instructions [facility] 1 week Discharge Planning: <30 minutes discharge planning Discharge Instructions Discharge Diet: No Restrictions Discharge Physical Examination Vital Signs Vital Signs Date Time Temp Pulse Resp B/P (MAP) Pulse Ox O2 Delivery O2 Flow Rate FiO2 11/10/20 08:00 Trach Collar 10.00 11/10/20 07:34 36.0 78 20 112/65 (81) 96 11/10/20 07:14 28 General Appearance: No Apparent Distress, WD/WN Respiratory: Lungs Clear Cardiovascular: Regular Rate, Rhythm Neurologic/Psychiatric: Alert, Oriented x3, No Motor/Sensory Deficits, Normal Mood/Affect Allergies: Coded Allergies: No Known Drug Allergies (Unverified , 06/18/17) Discharge Summary Date of Admission Nov 06, 2020 at 12:40 Date of Discharge Discharge Date: Nov 10, 2020 ROBINA MELLO DO Nov 10, 2020 10:27
[2020-11-10] MEDS ORDERED: KCL 10 MEQ TAB (MICRO K) PO SCH (18:00)
== END 2020-11-10 11:30 | disposition home or self-care (01) | DRG 871 ==
LOC: EDUNIT# 11:04 → ER 11:05 → 4TH 12:40
PROVIDERS: ADMIT Family Medicine; ATTEND Internal Medicine
DX: A41.9 Sepsis, unspecified organism (principal); J18.9 Pneumonia, unspecified organism; J96.21 Acute and chronic respiratory failure with hypoxia; J44.0 Chronic obstructive pulmonary disease with (acute) lower respiratory infection; C20 Malignant neoplasm of rectum; Z68.43 Body mass index [BMI] 50.0-59.9, adult; Z20.822 Contact with and (suspected) exposure to COVID-19; E78.00 Pure hypercholesterolemia, unspecified; I10 Essential (primary) hypertension; D86.9 Sarcoidosis, unspecified; E66.01 Morbid (severe) obesity due to excess calories; F41.9 Anxiety disorder, unspecified; F32.9 Major depressive disorder, single episode, unspecified; R60.9 Edema, unspecified; G47.39 Other sleep apnea; Z87.891 Personal history of nicotine dependence; Z92.21 Personal history of antineoplastic chemotherapy; Z93.0 Tracheostomy status
CPT/HCPCS: 36410; 36415; 71045; 71046; 71275; 76937; 80048; 80053; 82805; 83605; 84145; 85007; 85025; 85027; 85379; 85610; 85730; 86141; 87040; 87635; 87804; 94640; 94760

== ENCOUNTER → 2021-02-25 | Outpatient (CLI) | payer MEDICARE, MEDICAID ==
[~2021-02-25] MED LIST changes: +ACET-2267 PO; +ALBU2.5V4 NEB; +CEFD300C3 PO; +CEFU250T80 PO; +FLUO40CA PO; +LIDO700A45 TD; +POTASSIUM CL 10% PO; +TIOT18CA2 INH
--- NOTE | 2021-02-25 10:35 | Diagnostic Imaging Report ---
INDICATION: Infiltrates COMPARISON: Radiograph 11/10/2020 FINDINGS: Right basilar infiltrate present on prior has resolved. The lungs clear follow-up. Trach tube above the kimmie. No effusion, pneumothorax or failure pattern. IMPRESSION: Clearance of the right basilar infiltrate, clear lungs at follow-up with no adverse development. Dictated by: Dictated on workstation # [id number]
== END ==
LOC: RAD 09:44
PROVIDERS: ATTEND Nurse Practitioner Family
DX: R91.8 Other nonspecific abnormal finding of lung field (principal)
CPT/HCPCS: 71046

== ENCOUNTER 2021-11-05 06:06 | Outpatient (CLI) | payer MEDICARE, MEDICAID ==
[~2021-11-05] VITALS: Ht 162.6 cm; Wt 153.3 kg
== END 2021-11-06 07:02 | disposition home or self-care (01) ==
LOC: PREOP 06:06
PROVIDERS: ATTEND Surgery
DX: Z01.818 Encounter for other preprocedural examination (principal)

== ENCOUNTER 2021-11-16 11:31 | Day surgery (SDC) | payer MEDICARE, MEDICAID ==
[~2021-11-16] VITALS: Ht 162.6 cm; Wt 153.3 kg
--- NOTE | 2021-11-16 11:45 | Progress Note-Pre Operative ---
Pre-Operative Progress Note H&P Reviewed The H&P was reviewed, patient examined and no changes noted. Time Seen by Provider: 11:42 Date H&P Reviewed: Nov 16, 2021 Time H&P Reviewed: 11:42 Pre-Operative Diagnosis: Rectal pain, Hx of metaplasia of Gastric polyps, c hronic gastritis BRENNEN HERCULES DO Nov 16, 2021 11:45
[2021-11-16] MEDS ORDERED: LACTATED RINGERS 1,000 ML IV STA (12:03)
[2021-11-16] MEDS ORDERED: HURRICAINE EXT TUBE (BENZOCAINE) XX PRN (12:15)
[2021-11-16 12:25] VITALS: BP 131/85
[2021-11-16] MEDS ORDERED: MIDAZOLAM 2 MG/2 ML (VERSED) VIAL ONE (12:36)
[2021-11-16] MEDS ORDERED: HURRICAINE EXT TUBE (BENZOCAINE) ONE (12:42)
[2021-11-16] MEDS ORDERED: proPOfol 200 MG/20 ML (DIPRIVAN) VIAL IV ONE (12:47)
--- NOTE | 2021-11-16 13:07 | Progress Note-Post Operative ---
Post-Operative Progess Note Surgeon (s)/Electrostatic Powder Coating Technician (s) Surgeon BRENNEN HERCULES DO Electrostatic Powder Coating Technician: none Pre-Operative Diagnosis Rectal pain, Hx of metaplasia of Gastric polyps, chronic gastritis Post-Operative Diagnosis Gastritis Gastric polyps Int hemorrhoids Procedure & Operative Findings Date of Procedure 11/16/21 Procedure Performed/Findings EGD with bx Proctoscopy PROCEDURE NOTE: After informed consent was obtained, the patient was brought to the endoscopy suite, placed in bed in supine position. She was administered IV sedation and General anesthesia by the DEVELOPMENT TEAM LEAD (plus the anesthesiologist) who then monitored vitals the entire time, heart rate, blood pressure and pulse ox and the scope was inserted down the mouth through the esophagus into the stomach. Pushed into the stomach and noted some moderate gastritis and polyps. Pushed into the duodenum which looked good. Pulled back and did a biopsy of antrum. Then did a biopsy of polyps just outside antrum and two in the upper portion of stomach. Then retroflexed the scope, did not really see a hiatal hernia, took a picture and then pulled the scope into the GE junction, took a picture of some mild esophagitis. Pushed the scope back into the stomach, suctioned all the air out of the stomach. At this point pulled the scope up the esophagus and out the mouth. Went down below and started the proctoscopy. Pushed into the rectum, did not see any polyps or inflammation. Saw some minimal internal hemorrhoids and took a picture of this. No masses seen or felt near anal opening The patient tolerated the procedure and she recovered in the endoscopy suite. Anesthesia Type General Estimated Blood Loss Estimated blood loss (mL): scant Specimens/Packing Specimens Removed antral bx Body of stomach bx Fundal bx GE jxn bx BRNENEN HERCULES DO Nov 16, 2021 13:06
--- NOTE | 2021-11-16 13:08 | Endoscopy Discharge Instruct ---
Endo Procedure/Findings Findings 1.: Gastritis 2.: Polyp 3.: Internal Hemorrhoids Discharge Instructions - Activity: You might feel a little sleepy until tomorrow. This is due to the medicine you received to relax you. Until tomorrow, you should: NOT drive a car, operate machinery or power tools. NOT drink any alcoholic beverages. NOT make any important decisions or sign importortant papers. Do not return to work until tomorrow, unless otherwise instructed. Resume previous activities tomorrow. Diet: Start by taking liquids. If you tolerate liquids, advance to solid food. 1.: Colonscopy in 5 years 2.: EGD in 1 year Notify Physician - If you experience excessive bleeding, unusual abdominal pain, fever, or chest pain, contact your doctor immediately. BRENNEN HERCULES DO Nov 16, 2021 13:08
[2021-11-16 13:10] VITALS: BP 124/74
[2021-11-16 13:15] VITALS: BP 122/78
--- NOTE | 2021-11-16 13:28 | Anesthesia-General Post-Op ---
General Patient Condition Mental Status/LOC: Same as Preop Cardiovascular: Satisfactory Nausea/Vomiting: Absent Respiratory: Satisfactory Pain: Controlled Complications: Absent Post Op Complications Complications None Follow Up Care/Instructions Patient Instructions None needed. Anesthesia/Patient Condition Patient Condition Patient is doing well, no complaints, stable vital signs, no apparent adverse anesthesia problems. No complications reported per nursing. MADAI MERINO CRNA Nov 16, 2021 13:28
[2021-11-16 13:45] VITALS: BP 129/83
== END 2021-11-16 14:15 | disposition home or self-care (01) ==
LOC: ENDO 11:31
PROVIDERS: ATTEND Surgery
DX: K29.50 Unspecified chronic gastritis without bleeding (principal); K21.00 Gastro-esophageal reflux disease with esophagitis, without bleeding; K31.7 Polyp of stomach and duodenum; K62.89 Other specified diseases of anus and rectum; K64.8 Other hemorrhoids; E66.01 Morbid (severe) obesity due to excess calories; Z93.0 Tracheostomy status; Z85.048 Personal history of other malignant neoplasm of rectum, rectosigmoid junction, and anus; Z68.43 Body mass index [BMI] 50.0-59.9, adult

== ENCOUNTER 2021-12-01 16:19 | Inpatient (IN) | payer MEDICARE, MEDICAID ==
[~2021-12-01] VITALS: Ht 165.1 cm; Wt 155.0 kg
[2021-12-01 16:44] LABS: BASOPHILS % (AUTO) 1 % (0-10); EOSINOPHILS # (AUTO) 0.2 10^3/uL (0.0-0.3); EOSINOPHILS % (AUTO) 3 % (0-10); HEMATOCRIT 41 % (35-52); HEMOGLOBIN 12.6 g/dL (11.5-16.0); LYMPHOCYTES # (AUTO) 2.1 10^3/uL (1.0-4.0); LYMPHOCYTES % (AUTO) 28 % (12-44); MEAN CORPUSCULAR HEMOGLOBIN 27 pg (25-34); MEAN CORPUSCULAR HGB CONC 31 g/dL (32-36); MEAN CORPUSCULAR VOLUME 86 fL (80-99); MEAN PLATELET VOLUME 9.8 fL (9.0-12.2); MONOCYTES # (AUTO) 0.5 10^3/uL (0.0-1.0); MONOCYTES % (AUTO) 7 % (0-12); NEUTROPHILS # (AUTO) 4.5 10^3/uL (1.8-7.8); NEUTROPHILS % (AUTO) 61 % (42-75); PLATELET COUNT 249 10^3/uL (130-400); WHITE BLOOD COUNT 7.4 10^3/uL (4.3-11.0)
[2021-12-01] MEDS ORDERED: RT-ALBUTEROL/IPRATROPIUM 3 ML (DUONEB) VIAL INH ONE (16:45)
--- NOTE | 2021-12-01 17:22 | ED Respiratory ---
General Chief Complaint: Respiratory Problems Stated Complaint: SOB Nursing Triage Note: ARRIVES VIA EMS FROM [facility] TO ROOM 02. A&O X3 EMS ESTABLISHED IV OF A 22 GUAGE IN LEFT WRIST. OXYGEN IS ON AND TO TRACH AT 3 LITERS. Source: patient Exam Limitations: no limitations History of Present Illness Date Seen by Provider: Dec 01, 2021 Time Seen by Provider: 16:20 Initial Comments Here by EMS after being seen at [facility] for shortness of breath. Patient has significant history of sarcoidosis. She has had increasing cough and congestion that is not better despite breathing treatments at home. Symptoms have been going on over the last 1 to 2 weeks but worse over the last 1 to 2 days. She presented for evaluation. She has had COVID vaccination. Denies fever chills. Denies nausea or vomiting. Does not have a history of heart failure. Denies chest pain. 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 Reports that she has not been on steroids recently. Timing/Duration: getting worse, other (Few days) Severity: moderate Prior Episodes/Possible Cause: occasional episodes Modifying Factors: Worse With Activity, Worse With Coughing; Improves With Oxygen, Improves With Rest Associated Symptoms: No chest pain/soreness; cough; No fever/chills, No muscle aches; nasal congestion, shortness of breath, sore throat Allergies and Home Medications Allergies Coded Allergies: No Known Drug Allergies (Unverified , 06/18/17) Patient Home Medication List Home Medication List Reviewed: Yes Acetaminophen (Tylenol Extra Strength) 500 Mg Tablet, 1,000 MG PO Q8H PRN for PAIN-MILD (1-4), (Reported) Entered as Reported by: MIRANDA CRISTOBAL on 11/07/20 1001 Albuterol Sulfate (Albuterol Sulfate) 2.5 Mg/3 Ml Vial.neb, 3 ML NEB Q6H PRN for SHORTNESS OF BREATH, (Reported) Entered as Reported by: MIRANDA CRISTOBAL on 11/07/20 1001 Fluoxetine HCl (Fluoxetine HCl) 40 Mg Capsule, 40 MG PO DAILY, (Reported) Entered as Reported by: MIRANDA CRISTOBAL on 11/07/20 1001 Hydrochlorothiazide (Hydrochlorothiazide) 25 Mg Tablet, 25 MG PO DAILY, (Reported) Entered as Reported by: VIKKI CHOI on 06/19/17 1130 Lidocaine (Lidocaine 5% Patch) 1 Each Adh..patch, 1 PATCH TD DAILY PRN for PAIN- BREAKTHROUGH, (Reported) Entered as Reported by: MIRANDA CRISTOBAL on 11/07/20 1001 Rosuvastatin Calcium (Rosuvastatin Calcium) 40 Mg Tablet, 40 MG PO DAILY, (Reported) Entered as Reported by: SHARIFA GONZÁLES on 09/15/20 1251 Tiotropium [place] (Spiriva) 1 Inh Aerp, 1 PUFF INH DAILY, (Reported) Entered as Reported by: MIRANDA CRISTOBAL on 11/07/20 1001 [Potassium Cl 10%] 20MEQ/15ML SOLN, 15 ML PO DAILY, (Reported) Entered as Reported by: MIRANDA CRISTOBAL on 11/07/20 1001 Review of Systems Review of Systems Constitutional: see HPI; No chills, No fever EENTM: nose congestion, throat pain Respiratory: cough, short of breath, wheezing Cardiovascular: No chest pain, No edema, No palpitations Gastrointestinal: No nausea, No vomiting Genitourinary: no symptoms reported Musculoskeletal: No back pain, No joint pain Skin: no symptoms reported All Other Systems Reviewed Negative Unless Noted: Yes Past Ffqfkmi-Wikmyq-Zyjmky Hx Patient Social History Tobacco Use?: No Use of E-Cig and/or Vaping dev: No Substance use?: No Immunizations Up To Date Tetanus Booster (TDap): Unknown PED Vaccines UTD: Yes First/Initial COVID19 Vaccinat: YES Second COVID19 Vaccination Mickey: YES Third COVID19 Vaccination Date: NO Seasonal Allergies Seasonal Allergies: No Past Medical History Surgeries: Yes (PORT RIGHT CHEST/REMOVED; ABSCESS I&D LEFT AXILLA; PERMANENT TRACHEOSTOMY) Gallbladder, Tracheostomy Respiratory: Yes (PT HAS TRACH D/T SARCOIDOSIS, WEAR OXYGEN AT HOME) Asthma, Pneumonia, Chronic Bronchitis, COPD Currently Using CPAP: No Currently Using BIPAP: No Cardiac: Yes High Cholesterol, Hypertension Neurological: No Female Reproductive Disorders: Denies 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 Genitourinary: No Gastrointestinal: Yes (hepatitis C treated with Harvoni in [id number]; ANAL CANCER--2011) Hepatitis Musculoskeletal: Yes (SARCOIDOSIS) Endocrine: Yes ("BORDERLINE DIABETIC"; MORBID OBESITY) HEENT: Yes (PERMANENT TRACH; EDENTULOUS) Loss of Vision: Denies Hearing Impairment: Denies Cancer: Yes (RECTAL/ANAL CANCER IN 2012-NO SURGERY--TREATED WITH CHEMO + RADIATION) Rectal Did You Recieve Any Treatments: Yes What Type of Treatment Did You: Chemotherapy, Radiation Psychosocial: Yes Anxiety, Depression Integumentary: No Blood Disorders: No Adverse Reaction/Blood Tranf: No Family Medical History Reviewed Nursing Family Hx Patient reports no known family medical history. Hypertension, Lung Disease Physical Exam Vital Signs - First Documented 12/01/21 16:20 Temp 36.8 Pulse 80 Resp 20 B/P (MAP) 139/95 (110) Pulse Ox 98 O2 Delivery Trach Collar O2 Flow Rate 3.00 3.00 Capillary Refill : Height: 5'5.00" Weight: 335lbs. 0.4oz. 151.967793gy; 56.00 BMI Method:Actual General Appearance: WD/WN, no apparent distress HEENT: PERRL/EOMI, other (Mild pharyngeal erythema) Neck: full range of motion, supple Respiratory: crackles, wheezing (Throughout mild but worse in the lower bases bilateral) Cardiovascular: regular rate, rhythm, no murmur Gastrointestinal: non tender, soft Extremities: non-tender Neurologic/Psychiatric: alert, oriented x 3 Skin: normal color, warm/dry Progress/Results/Core Measures Suspected Sepsis SIRS Temperature: Pulse: 80 Respiratory Rate: 20 Laboratory Tests 12/01/21 16:30: White Blood Count 7.4 Blood Pressure 139 /95 Mean: 110 Laboratory Tests 12/01/21 16:30: Platelet Count 249 Results/Orders Lab Results Laboratory Tests Test 12/01/21 16:30 Range/Units White Blood Count 7.4 4.3-11.0 10^3/uL Red Blood Count 4.72 3.80-5.11 10^6/uL Hemoglobin 12.6 11.5-16.0 g/dL Hematocrit 41 35-52 % Mean Corpuscular Volume 86 80-99 fL Mean Corpuscular Hemoglobin 27 25-34 pg Mean Corpuscular Hemoglobin Concent 31 L 32-36 g/dL Red Cell Distribution Width 14.7 H 10.0-14.5 % Platelet Count 249 130-400 10^3/uL Mean Platelet Volume 9.8 9.0-12.2 fL Immature Granulocyte % (Auto) 0 % Neutrophils (%) (Auto) 61 42-75 % Lymphocytes (%) (Auto) 28 12-44 % Monocytes (%) (Auto) 7 0-12 % Eosinophils (%) (Auto) 3 0-10 % Basophils (%) (Auto) 1 0-10 % Neutrophils # (Auto) 4.5 1.8-7.8 10^3/uL Lymphocytes # (Auto) 2.1 1.0-4.0 10^3/uL Monocytes # (Auto) 0.5 0.0-1.0 10^3/uL Eosinophils # (Auto) 0.2 0.0-0.3 10^3/uL Basophils # (Auto) 0.0 0.0-0.1 10^3/uL Immature Granulocyte # (Auto) 0.0 0.0-0.1 10^3/uL B-Type Natriuretic Peptide < 10.0 <100.0 PG/ML My Orders Orders - TMO STACK MD Ed Iv/Invasive Line Start (12/01/21 16:37) Ekg Tracing (12/01/21 16:37) O2 (12/01/21 16:37) Monitor-Rhythm Ecg Trace Only (12/01/21 16:37) Bnp Lay (12/01/21 16:37) Cbc With Automated Diff (12/01/21 16:37) Comprehensive Metabolic Panel (12/01/21 16:37) Hs C Reactive Protein (12/01/21 16:37) Troponin I [place] (12/01/21 16:37) Chest 1 View, Ap/Pa Only (12/01/21 16:37) Albuterol/Ipra Inhalation Soln (Duoneb I (12/01/21 16:45) Svn Small Volume Nebulizer (12/01/21 16:37) Albuterol Pre-Mix Nebs (Rt) (Proventil (12/01/21 18:09) Svn Small Volume Nebulizer (12/01/21 18:09) Methylprednisolone Sod Succ (Solu-Medrol (12/01/21 18:48) Medications Given in ED Current Medications Medications Dose Ordered Sig/Sandra Route Start Time Stop Time Status Last Admin Dose Admin Albuterol/ Ipratropium 3 ml ONCE ONCE INH 12/01/21 16:45 12/01/21 16:46 DC 12/01/21 17:08 3 ML Vital Signs/I&O 12/01/21 12/01/2122 16:20 16:20 18:20 Temp 36.8 Pulse 80 Resp 20 B/P (MAP) 139/95 (110) Pulse Ox 98 100 O2 Delivery Trach Collar Trach Collar O2 Flow Rate 3.00 3.00 3.00 3.00 Capillary Refill : Blood Pressure Mean: 110 Progress Note : Progress Note Seen and evaluated. IV, labs, chest x-ray and EKG ordered. DuoNeb ordered. Monitor patient. 1850: Patient partially responded to DuoNeb. Albuterol nebulizer treatments x3 given. Patient is still dyspneic. She does have significant lung history with sarcoidosis. I believe this is acute exacerbation. Solu-Medrol 125 mg IV ordered. I did discuss the case with Dr. Dobson and she accepts patient for admission, inpatient status. Findings and concerns discussed with patient who agrees with plan. Chemistry specimen hemolyzed but will be followed by inpatient team. This was discussed with Dr. Dobson. ECG Initial ECG Impression Date: Dec 01, 2021 Initial ECG Impression Time: 17:06 Initial ECG Rate: 76 Initial ECG Rhythm: Normal Sinus Initial ECG Comparisson: Unchanged Comment Sinus rhythm with normal axis. No evidence of ST elevation [place]. Similar to previous of 08/27/2020. Interpreted by me. Diagnostic Imaging Diagonstic Imaging: Xray Plain Films/CT/US/NM/MRI: chest Comments [facility]. [place], [place] NAME: MARYLOU FLAHERTY [facility] REC#: [id number] PT STATUS: REG ER : 1960 PHYSICIAN: TOM STACK MD ADMIT DATE: 12/01/21/ER Draft Date of Exam:12/01/21 CHEST 1 VIEW, AP/PA ONLY INDICATION: Shortness of air. TIME OF EXAM: 5:20 p.m. Comparison is made with prior chest from 11/07/2020. FINDINGS: Heart is enlarged but stable. Tracheostomy tube is still above the kimmie. Central congestion is noted. There is no overt failure. No effusion or pneumothorax is seen. IMPRESSION: Cardiomegaly and central congestion. Dictated on workstation # [id number] Dict: 12/01/21 172 Trans: 12/01/21 172 [id number] Interpreted by: BARBARA ELIZABETH MD Electronically signed by: Departure Communication (Admissions) Time/Spoke to Admitting Phy: 18:50 Impression Primary Impression: COPD (chronic obstructive pulmonary disease) Qualified Codes: J44.1 - Chronic obstructive pulmonary disease with (acute) exacerbation Additional Impression: Sarcoidosis of lung Disposition: ADMITTED INPATIENT Condition: Stable Admissions Decision to Admit Reason: Admit from ER (General) Decision to Admit/Date: Dec 01, 2021 Time/Decision to Admit Time: 18:50 Departure-Patient Inst. Referrals: SHARIFA BULLOCK MD (PCP/Family) Primary Care Physician TOM STACK MD Dec 01, 2021 17:22
[2021-12-01] MEDS ORDERED: RT-ALBUTEROL SULF 2.5 MG/3 ML PRE-MIX VIAL INH STA (18:09)
[2021-12-01] MEDS ORDERED: methylPREDNISolone 125 MG (Solu-MEDROL) VIAL IV STA (18:48)
[2021-12-01 19:28] LABS: CHLORIDE 105 MMOL/L (98-107); POTASSIUM 3.9 MMOL/L (3.6-5.0); SODIUM 144 MMOL/L (135-145)
[2021-12-01 19:29] LABS: CALCIUM 9.2 MG/DL (8.5-10.1)
[2021-12-01 19:30] LABS: GLUCOSE 93 MG/DL (70-105); TOTAL PROTEIN 7.9 GM/DL (6.4-8.2)
[2021-12-01 19:31] LABS: CARBON DIOXIDE 24 MMOL/L (21-32)
[2021-12-01 19:32] LABS: BILIRUBIN,TOTAL 0.3 MG/DL (0.1-1.0)
[2021-12-01 19:34] LABS: ALKALINE PHOSPHATASE 88 U/L (40-136); CREATININE SERUM 0.93 MG/DL (0.60-1.30); GFR ESTIMATED 71
[2021-12-01 19:35] LABS: BUN/CREATININE RATIO 12
[2021-12-01 19:37] LABS: ALANINE AMINOTRANSFERASE 19 U/L (0-55)
[2021-12-01 20:21] VITALS: BP 139/95
[2021-12-01] MEDS ORDERED: RT-ALBUTEROL/IPRATROPIUM 3 ML (DUONEB) VIAL INH PRN (20:30)
[2021-12-01] MEDS ORDERED: RT-ALBUTEROL/IPRATROPIUM 3 ML (DUONEB) VIAL ONE (21:34)
[2021-12-01] MEDS: RT-ALBUTEROL/IPRATROPIUM 3 ML (DUONEB) VIAL INH SCH (21:37)
[2021-12-01] MEDS: methylPREDNISolone 40 MG/ML (Solu-MEDROL) VIAL IV SCH (23:25)
[2021-12-02 00:12] VITALS: BP 126/89
[2021-12-02] MEDS: RT-ALBUTEROL/IPRATROPIUM 3 ML (DUONEB) VIAL INH SCH ×6 (01:48→21:27)
[2021-12-02] MEDS ORDERED: ACETAMINOPHEN 500 MG TAB (TYLENOL) ONE (03:08)
[2021-12-02] MEDS ORDERED: ACETAMINOPHEN 500 MG TAB (TYLENOL) PO PRN (03:15)
[2021-12-02 03:55] VITALS: BP 163/77
[2021-12-02] MEDS: CATHETER FLUSH 10 ML SYR IVP SCH ×3 (05:36→21:18)
[2021-12-02] MEDS: methylPREDNISolone 40 MG/ML (Solu-MEDROL) VIAL IV SCH ×3 (05:36→17:48)
[2021-12-02 07:41] VITALS: BP 133/76
[2021-12-02] MEDS ORDERED: FURO20TA4 PO (10:03)
[2021-12-02] MEDS ORDERED: IBUP-1780 PO (10:03)
[2021-12-02] MEDS ORDERED: NAPR220T66 PO (10:03)
[2021-12-02] MEDS ORDERED: CYCL5TAB PO (10:03)
[2021-12-02] MEDS ORDERED: GABA300C PO (10:03)
[2021-12-02] MEDS ORDERED: ALBU18HF2 INH (10:03)
[2021-12-02 10:06] LABS: BASOPHILS % (AUTO) 0 % (0-10); EOSINOPHILS % (AUTO) 0 % (0-10); HEMATOCRIT 42 % (35-52); HEMOGLOBIN 13.1 g/dL (11.5-16.0); LYMPHOCYTES # (AUTO) 0.9 10^3/uL (1.0-4.0); LYMPHOCYTES % (AUTO) 10 % (12-44); MEAN CORPUSCULAR HEMOGLOBIN 27 pg (25-34); MEAN CORPUSCULAR HGB CONC 31 g/dL (32-36); MEAN CORPUSCULAR VOLUME 87 fL (80-99); MEAN PLATELET VOLUME 9.6 fL (9.0-12.2); MONOCYTES # (AUTO) 0.1 10^3/uL (0.0-1.0); MONOCYTES % (AUTO) 1 % (0-12); NEUTROPHILS # (AUTO) 8.4 10^3/uL (1.8-7.8); NEUTROPHILS % (AUTO) 89 % (42-75); PLATELET COUNT 248 10^3/uL (130-400); WHITE BLOOD COUNT 9.5 10^3/uL (4.3-11.0)
[2021-12-02 10:20] LABS: CALCIUM 9.5 MG/DL (8.5-10.1); CREATININE SERUM 0.97 MG/DL (0.60-1.30); POTASSIUM 3.8 MMOL/L (3.6-5.0)
[2021-12-02 11:05] LABS: BAND NEUTROPHILS 0 %; BASOPHILS % (MANUAL) 0 %; EOSINOPHILS % (MANUAL) 0 %; LYMPHOCYTES % (MANUAL) 11 %; MONOCYTES % (MANUAL) 1 %; NEUTROPHILS % (MANUAL) 88 %; RBC MORPH NORMAL
[2021-12-02 11:31] VITALS: BP 132/83
[2021-12-02] MEDS ORDERED: AZITHROMYCIN 250 MG TAB (ZITHROMAX) PO NR (12:00)
[2021-12-02] MEDS: cefTRIAXone 1 GM PRE-MIX 50 ML IV SCH (14:06)
[2021-12-02 16:00] VITALS: BP 167/70
[2021-12-02] MEDS ORDERED: NON-FORMULARY MEDICATION 1 EA EA (Cyclobenzaprine HCl 5 MG) PO PRN (18:45)
--- NOTE | 2021-12-02 18:46 | History & Physical ---
HPI History of Present Illness: 61 yo F that presented to ER with increasing shortness of breath for the last 10 days. States that she had a EGD on the and since then she has had a decompensation of lung function. Patient has a h/o sarcoid lung and is trach dependent. She has not had any recent admissions. Denies any sick contacts. Denies any fever or chills. States that she has had increase in secretions and they are thicker then her normal. Source: patient, RN/MD Exam Limitations: no limitations Date seen by provider: Dec 02, 2021 Time Seen by Provider: 10:15 Attending Physician Odilia Dobson MD PCP Sharifa Bullock MD Consult Date of Admission Dec 01, 2021 at 18:53 Home Medications Home Medications Reviewed patient Home Medication Reconciliation performed by pharmacy medication reconciliations altitude chamber technician and/or nursing. Patients Allergies have been reviewed. Allergies Coded Allergies: No Known Drug Allergies (Unverified , 06/18/17) BRM-Jecdmk-Kisxjn Hx Patient Social History Living Status: independently at home Drug of Choice: DENIES/ hx of drug use Smoking Status: Former Smoker Former smoker/When Quit: Aug 08, 2003 2nd Hand Smoke Exposure: No Recent Hopitalizations: No Alcohol Use?: No Have you traveled recently?: No Immunizations Up To Date Tetanus Booster (TDap): Unknown Influenza Vaccine Up-to-Date: Yes; Up-to-Date First/Initial COVID19 Vaccinat: YES Second COVID19 Vaccination Mickey: YES Third COVID19 Vaccination Date: NO COVID19 Vaccine Inbound Ingredient Logistics Specialist: MODERNA Past Medical History PMHx: Sarcoidosis with tracheostomy COPD Asthma HTN Prediabetes SurgHx: Trachostomy placement Family Medical History Significant Family History: Hypertension, Lung Disease Family History: Patient reports no known family medical history. Review of Systems (CHC) Constitutional: malaise EENTM: nose congestion, throat pain Respiratory: cough, phlegm, short of breath Cardiovascular: no symptoms reported Gastrointestinal: no symptoms reported Genitourinary: no symptoms reported Musculoskeletal: no symptoms reported Skin: no symptoms reported Psychiatric/Neurological: No Symptoms Reported Reviewed Test Results Reviewed Test Results Lab Laboratory Tests Test 12/01/21 19:15 12/02/21 09:50 Range/Units Sodium Level 144 142 135-145 MMOL/L Potassium Level 3.9 3.8 3.6-5.0 MMOL/L Chloride Level 105 106 98-107 MMOL/L Carbon Dioxide Level 24 22 21-32 MMOL/L Anion Gap 15 H 14 5-14 MMOL/L Blood Urea Nitrogen 11 12 7-18 MG/DL Creatinine 0.93 0.97 0.60-1.30 MG/DL Estimat Glomerular Filtration Rate 71 67 BUN/Creatinine Ratio 12 12 Glucose Level 93 287 H 70-105 MG/DL Calcium Level 9.2 9.5 8.5-10.1 MG/DL Corrected Calcium 9.2 8.5-10.1 MG/DL Total Bilirubin 0.3 0.1-1.0 MG/DL Aspartate Amino Transf (AST/SGOT) 16 5-34 U/L Alanine Aminotransferase (ALT/SGPT) 19 0-55 U/L Alkaline Phosphatase 88 40-136 U/L Troponin I < 0.028 <0.028 NG/ML C-Reactive Protein High Sensitivity 2.25 H 0.00-0.50 MG/DL Total Protein 7.9 6.4-8.2 GM/DL Albumin 4.0 3.2-4.5 GM/DL White Blood Count 9.5 4.3-11.0 10^3/uL Red Blood Count 4.82 3.80-5.11 10^6/uL Hemoglobin 13.1 11.5-16.0 g/dL Hematocrit 42 35-52 % Mean Corpuscular Volume 87 80-99 fL Mean Corpuscular Hemoglobin 27 25-34 pg Mean Corpuscular Hemoglobin Concent 31 L 32-36 g/dL Red Cell Distribution Width 14.6 H 10.0-14.5 % Platelet Count 248 130-400 10^3/uL Mean Platelet Volume 9.6 9.0-12.2 fL Immature Granulocyte % (Auto) 1 % Neutrophils (%) (Auto) 89 H 42-75 % Lymphocytes (%) (Auto) 10 L 12-44 % Monocytes (%) (Auto) 1 0-12 % Eosinophils (%) (Auto) 0 0-10 % Basophils (%) (Auto) 0 0-10 % Neutrophils # (Auto) 8.4 H 1.8-7.8 10^3/uL Lymphocytes # (Auto) 0.9 L 1.0-4.0 10^3/uL Monocytes # (Auto) 0.1 0.0-1.0 10^3/uL Eosinophils # (Auto) 0.0 0.0-0.3 10^3/uL Basophils # (Auto) 0.0 0.0-0.1 10^3/uL Immature Granulocyte # (Auto) 0.1 0.0-0.1 10^3/uL Neutrophils % (Manual) 88 % Lymphocytes % (Manual) 11 % Monocytes % (Manual) 1 % Eosinophils % (Manual) 0 % Basophils % (Manual) 0 % Band Neutrophils 0 % Blood Morphology Comment NORMAL Physical Exam-(CHC) Physical Exam Vital Signs VS - Last 72 Hours, by Label 12/01/21 12/01/21 12/01/21 12/01/21 16:20 16:20 18:20 19:57 Temp 36.8 Pulse 80 85 Resp 20 20 B/P (MAP) 139/95 (110) 112/62 Pulse Ox 98 100 87 O2 Delivery Trach Collar Trach Collar Trach Collar O2 Flow Rate 3.00 3.00 3.00 3.00 3.00 3.00 12/01/21 12/01/21 12/01/21 12/02/21 20:21 20:38 21:39 00:12 Temp 36.8 36.4 Pulse 80 90 Resp 20 B/P (MAP) 126/89 (101) Pulse Ox 98 96 95 O2 Delivery Simple Mask Nasal Cannula Trach Collar O2 Flow Rate 5.00 3.00 12/02/21 12/02/21 12/02/21 12/02/21 01:48 03:55 06:16 07:41 Temp 36.3 36.2 Pulse 96 87 Resp 20 18 B/P (MAP) 163/77 (105) 133/76 (95) Pulse Ox 97 95 97 95 O2 Delivery Nasal Cannula Trach Collar Trach Collar Trach Collar O2 Flow Rate 3.00 3.00 3.00 12/02/21 12/02/21 12/02/21 12/02/21 08:00 10:19 11:31 14:41 Temp 36.1 Pulse 107 Resp 18 B/P (MAP) 132/83 (99) Pulse Ox 95 96 97 98 O2 Delivery Trach Collar Trach Collar Trach Collar Trach Collar O2 Flow Rate 3.00 3.00 3.00 3.00 12/02/21 12/02/21 16:00 18:09 Temp 36.0 Pulse 88 Resp 18 B/P (MAP) 167/70 (102) Pulse Ox 93 99 O2 Delivery Trach Collar Trach Collar O2 Flow Rate 3.00 3.00 Capillary Refill : General Appearance: no apparent distress, obese HEENT: PERRL/EOMI Neck: other (Trach with shield in place with mild secretions present) Respiratory: no respiratory distress, no accessory muscle use, wheezing, expiration Cardiovascular: normal peripheral pulses, regular rate, rhythm, no murmur Gastrointestinal: normal bowel sounds, non tender, soft Back: no CVA tenderness, no vertebral tenderness Extremities: normal range of motion, non-tender, no pedal edema, no calf tenderness, normal capillary refill Neurologic/Psychiatric: procurement coordinator II-XII nml as tested, no motor/sensory deficits, alert, oriented x 3 Skin: normal color, warm/dry Lymphatic: no adenopathy Assessment/Plan Assessment/Plan Admission Status: Inpatient Order (span 2 midnights) Reason for Inpatient Admission: Patient requiring aggressive RT treatments and suctioning not able to do at home (1) COPD exacerbation Status: Acute Assessment & Plan: - Started on IV steroids and antibiotics, MAT protocol (2) Sarcoidosis of lung Status: Chronic (3) Tracheostomy dependent Status: Chronic (4) HTN (hypertension) Status: Chronic Assessment & Plan: - Restarted home meds Qualifiers: Qualified Codes: I10 - Essential (primary) hypertension (5) BMI 50.0-59.9, adult Status: Chronic (6) DVT prophylaxis Status: Acute Assessment & Plan: - Leixir Copy Copies To 1: SHARIFA BULLOCK MD, HOLLY R MD Dec 02, 2021 18:46
[2021-12-02] MEDS ORDERED: CYCLOBENZAPRINE 10 MG (FLEXERIL) TAB PO PRN (19:00)
[2021-12-02] MEDS ORDERED: ENOXAPARIN 40 MG/0.4 ML (LOVENOX) SYR SQ SCH (19:00)
[2021-12-02] MEDS: ENOXAPARIN 60 MG/0.6 ML (LOVENOX) SYR SC SCH (19:39)
[2021-12-02] MEDS: GABAPENTIN 300 MG (NEURONTIN) CAP PO SCH (19:39)
[2021-12-02] MEDS: ROSUVASTATIN 20 MG (CRESTOR) TABLET PO SCH (19:39)
[2021-12-02 20:00] VITALS: BP 124/70
[2021-12-02] MEDS ORDERED: NON-FORMULARY MEDICATION 1 EA EA (Rosuvastatin Calcium 40 MG) PO SCH (21:00)
[2021-12-03] VITALS: BP 144/82
[2021-12-03] MEDS: methylPREDNISolone 40 MG/ML (Solu-MEDROL) VIAL IV SCH ×4 (00:05→17:42)
[2021-12-03] MEDS: RT-ALBUTEROL/IPRATROPIUM 3 ML (DUONEB) VIAL INH SCH ×4 (02:01→21:45)
[2021-12-03 04:26] VITALS: BP 110/63
[2021-12-03] MEDS: ENOXAPARIN 60 MG/0.6 ML (LOVENOX) SYR SC SCH ×2 (05:57→17:42)
[2021-12-03] MEDS: CATHETER FLUSH 10 ML SYR IVP SCH ×3 (06:09→20:55)
[2021-12-03 07:41] VITALS: BP 144/76
[2021-12-03] MEDS: cefTRIAXone 1 GM PRE-MIX 50 ML IV SCH (08:57)
[2021-12-03] MEDS: AZITHROMYCIN 250 MG TAB (ZITHROMAX) PO SCH (08:57)
[2021-12-03] MEDS: GABAPENTIN 300 MG (NEURONTIN) CAP PO SCH ×3 (08:58→20:55)
[2021-12-03] MEDS: FLUoxetine HCL 20 MG (PROzac) CAP PO SCH (08:58)
[2021-12-03] MEDS ORDERED: NON-FORMULARY MEDICATION 1 EA EA (Fluoxetine HCl 40 MG) PO SCH (09:00)
[2021-12-03 11:13] VITALS: BP 128/74
[2021-12-03] MEDS: guaiFENesin (MUCINEX) 600 MG TAB PO SCH ×2 (13:44→20:55)
[2021-12-03 15:57] VITALS: BP 115/59
--- NOTE | 2021-12-03 17:34 | Progress Note ---
Subjective Subjective/Events-last exam Patient states she is having alot of mucus but she is not able to suction it out. She is breathing at baseline. Tolerating PO diet and ambulating around the room on her own. Review of Systems Pulmonary: Dyspnea, Cough Objective Exam Last Set of Vital Signs Vital Signs Date Time Temp Pulse Resp B/P (MAP) Pulse Ox O2 Delivery O2 Flow Rate FiO2 12/03/21 15:57 36.4 91 18 115/59 (77) 97 Trach Collar 7.50 12/03/21 11:09 32 Capillary Refill : I&O Intake and Output 12/03/21 00:00 Intake Total 1370 ml Output Total 200 ml Balance 1170 ml Intake Oral 1370 ml Output Urine Total 200 ml # Voids 8 # Bowel Movements 1 General: Alert, Oriented X3, No Acute Distress, Other (morbid obesity) Lungs: Clear to Auscultation, Normal Air Movement Heart: Regular Rate, No Murmurs Abdomen: Normal Bowel Sounds, Soft, No Tenderness, No Masses Extremities: No Edema, No Tenderness/Swelling Neuro: Normal Speech, Cranial Nerves 3-12 NL Assessment/Plan Assessment/Plan (1) COPD exacerbation Status: Acute Assessment & Plan: - Started on IV steroids and antibiotics, MAT protocol 12/03: Added mucinex today to help break up mucus, continue with routine suction, IV steroids and antibiotics, encouraged ambulation (2) Sarcoidosis of lung Status: Chronic (3) Tracheostomy dependent Status: Chronic (4) HTN (hypertension) Status: Chronic Assessment & Plan: - Restarted home meds Qualifiers: Qualified Codes: I10 - Essential (primary) hypertension (5) BMI 50.0-59.9, adult Status: Chronic (6) DVT prophylaxis Status: Acute Assessment & Plan: - BRITT Hernández MD Dec 03, 2021 17:34
[2021-12-03 19:54] VITALS: BP 136/80
[2021-12-03] MEDS: ROSUVASTATIN 20 MG (CRESTOR) TABLET PO SCH (20:55)
[2021-12-04] MEDS: methylPREDNISolone 40 MG/ML (Solu-MEDROL) VIAL IV SCH ×3 (00:20→11:13)
[2021-12-04 00:21] VITALS: BP 118/61
[2021-12-04] MEDS: RT-ALBUTEROL/IPRATROPIUM 3 ML (DUONEB) VIAL INH SCH ×3 (02:17→10:45)
[2021-12-04 04:04] VITALS: BP 131/76
[2021-12-04] MEDS: CATHETER FLUSH 10 ML SYR IVP SCH (06:00)
[2021-12-04] MEDS: ENOXAPARIN 60 MG/0.6 ML (LOVENOX) SYR SC SCH (06:01)
[2021-12-04 06:07] LABS: POTASSIUM 4.2 MMOL/L (3.6-5.0)
[2021-12-04 06:09] LABS: CALCIUM 8.6 MG/DL (8.5-10.1)
[2021-12-04 06:13] LABS: CREATININE SERUM 0.83 MG/DL (0.60-1.30)
[2021-12-04 07:41] VITALS: BP 151/91
[2021-12-04] MEDS: guaiFENesin (MUCINEX) 600 MG TAB PO SCH (08:17)
[2021-12-04] MEDS: AZITHROMYCIN 250 MG TAB (ZITHROMAX) PO SCH (08:17)
[2021-12-04] MEDS: GABAPENTIN 300 MG (NEURONTIN) CAP PO SCH ×2 (08:17→12:36)
[2021-12-04] MEDS: FLUoxetine HCL 20 MG (PROzac) CAP PO SCH (08:17)
[2021-12-04] MEDS: cefTRIAXone 1 GM PRE-MIX 50 ML IV SCH (08:17)
--- NOTE | 2021-12-04 10:47 | Discharge Summary ---
Diagnosis/Chief Complaint Date of Admission Dec 01, 2021 at 18:53 Date of Discharge 12/04/21 Admission Diagnosis Admission Diagnosis See problem list Discharge Diagnosis See below Problems/Diagnosis: (1) COPD exacerbation Assessment & Plan: - Started on IV steroids and antibiotics, MAT protocol 12/03: Added mucinex today to help break up mucus, continue with routine suction, IV steroids and antibiotics, encouraged ambulation 12/04: Doing better with the mucinex, she is ready to d/c home Status: Acute (2) Sarcoidosis of lung Status: Chronic (3) Tracheostomy dependent Status: Chronic (4) HTN (hypertension) Assessment & Plan: - Restarted home meds Qualifiers: Qualified Codes: I10 - Essential (primary) hypertension Status: Chronic (5) BMI 50.0-59.9, adult Status: Chronic (6) DVT prophylaxis Assessment & Plan: - Lovenox Status: Acute Chief Complaint/HPI Chief Complaint/HPI 61 yo F that presented to ER with increasing shortness of breath for the last 10 days. States that she had a EGD on the and since then she has had a decompensation of lung function. Patient has a h/o sarcoid lung and is trach dependent. She has not had any recent admissions. Denies any sick contacts. Denies any fever or chills. States that she has had increase in secretions and they are thicker then her normal. Discharge Summary-Simple/Stand Consultations Discharge Physical Examination Allergies: Coded Allergies: No Known Drug Allergies (Unverified , 06/18/17) Vitals & I&Os Vital Sign - Last 12Hours Date Time Temp Pulse Resp B/P (MAP) Pulse Ox O2 Delivery O2 Flow Rate FiO2 12/04/21 08:00 Trach Collar 7.00 30 12/04/21 07:41 36.4 79 20 151/91 (111) 96 Intake and Output 12/04/21 00:00 Intake Total 2490 ml Balance 2490 ml General Appearance: Alert, Oriented X3, Cooperative, No Acute Distress Respiratory: Clear to Auscultation, Normal Air Movement Cardiovascular: Regular Rate, No Murmurs Abdominal: Normal Bowel Sounds, Soft, No Tenderness, No Masses Extremities: No Edema, No Tenderness/Swelling Neuro: Normal Speech Hospital Course See final discharge diagnosis. Discussion & Recommendations 61 yo F that is tracheostomy dependent that presented with increasing shortness of breath. Patient was started on aggressive RT treatments. She was placed on IV antibiotics and steroids. They were able to suction alot of mucus and patient was feeling much better at time of discharge. Discharge Condition at discharge stable Instructions to patient/family Please see electronic discharge instructions given to patient. Discharge Medications Reviewed and agree with Discharge Medication list on patient's Discharge Instruction sheet BRITT VELASCO MD Dec 04, 2021 10:47
[2021-12-04] MEDS ORDERED: AZIT250T12 PO (10:54)
[2021-12-04] MEDS ORDERED: PRD50T PO (10:54)
[2021-12-04] MEDS ORDERED: GUAI600T43 PO (10:54)
--- NOTE | 2021-12-04 10:55 | Discharge Summary ---
Discharge [facility] Reconcile Patient Problems Problems Reviewed?: Yes Discharge Medications New, Converted or Re-Newed RX: Transmitted to Pharmacy New Medications: Prednisone (Prednisone) 50 Mg Tab 50 MG PO DAILY, #5 TAB Take 1 tab for 3 days and 1/2 tab for 4 days Azithromycin (Azithromycin) 250 Mg Tablet 250 MG PO DAILY, #4 TAB Guaifenesin (Mucinex) 600 Mg Tab.er.12h 600 MG PO BID, #60 TAB Continued Medications: Albuterol Sulfate (Albuterol Sulfate) 2.5 Mg/3 Ml Vial.neb 3 ML NEB Q6H PRN for SHORTNESS OF BREATH, ML Albuterol Sulfate (Ventolin Hfa) 90 Mcg Hfa.aer.ad 2 PUFF INH Q6H PRN for SHORTNESS OF BREATH, EA Cyclobenzaprine HCl (Cyclobenzaprine HCl) 5 Mg Tablet 5 MG PO TID PRN for MUSCLE SPASMS, TAB Fluoxetine HCl (Fluoxetine HCl) 40 Mg Capsule 40 MG PO DAILY, CAP Furosemide (Furosemide) 20 Mg Tablet 20 MG PO DAILY PRN for FLUID RETENTION, TAB Gabapentin (Neurontin) 300 Mg Capsule 300 MG PO TID, CAP Hydrochlorothiazide (Hydrochlorothiazide) 25 Mg Tablet 25 MG PO DAILY, TAB Lidocaine (Lidocaine 5% Patch) 1 Each Adh..patch 1 PATCH TD DAILY PRN for PAIN-BREAKTHROUGH, PATCH APPLIES TO SHOULDER OR BACK Naproxen Sodium (Aleve) 220 Mg Tablet 220-440 MG PO Q8H PRN for PAIN-MILD (1-4), TAB [Potassium Cl 10%] () 20MEQ/15ML SOLN 15 ML PO DAILY PRN for TAKE WITH FUROSEMIDE, ML Rosuvastatin Calcium (Rosuvastatin Calcium) 40 Mg Tablet 40 MG PO HS, TAB Tiotropium [place] (Spiriva) 1 Inh Aerp 1 PUFF INH DAILY PRN for SHORTNESS OF BREATH, EA Discontinued Medications: Ibuprofen (Ibuprofen) 800 Mg Tablet 800 MG PO TID PRN for PAIN-MILD (1-4), TAB Patient Instructions Goal/Follow Up Appt: [address] Dorcas Aaron Patient Instructions: - Make sure to complete you antibiotics and steroids Activity & Diet Discharge Diet: Cardiac Diet Activity as Tolerated: Yes BRITT VELASCO MD Dec 04, 2021 10:55
[2021-12-04 11:09] VITALS: BP 136/79
[2021-12-04 12:41] VITALS: BP 136/79
== END 2021-12-04 13:30 | disposition home or self-care (01) | DRG 191 ==
LOC: EDUNIT# 16:19 → ER 16:22 → 4TH 18:53
PROVIDERS: ADMIT Family Medicine; ATTEND Family Medicine
DX: J44.1 Chronic obstructive pulmonary disease with (acute) exacerbation (principal); Z68.43 Body mass index [BMI] 50.0-59.9, adult; D86.0 Sarcoidosis of lung; Z93.0 Tracheostomy status; E78.00 Pure hypercholesterolemia, unspecified; I10 Essential (primary) hypertension; Z86.19 Personal history of other infectious and parasitic diseases; Z85.048 Personal history of other malignant neoplasm of rectum, rectosigmoid junction, and anus; Z92.3 Personal history of irradiation; Z92.21 Personal history of antineoplastic chemotherapy; F41.9 Anxiety disorder, unspecified; F32.A Depression, unspecified; R73.03 Prediabetes; E66.01 Morbid (severe) obesity due to excess calories
CPT/HCPCS: 36415; 71045; 80048; 80053; 83880; 84484; 85007; 85025; 85027; 86141; 93005; 93041; 94640; 94760

== ENCOUNTER → 2021-12-24 | Outpatient (CLI) | payer MEDICARE, MEDICAID ==
[~2021-12-24] MED LIST changes: +ALBU18HF2 INH; +AZIT250T12 PO; +CYCL5TAB PO; +GABA300C PO; +GUAI600T43 PO; +IBUP-1780 PO; +NAPR220T66 PO; +PRD50T PO
--- NOTE | 2021-12-28 14:40 | Diagnostic Imaging Report ---
Indication: Routine screening. Comparison is made with prior mammogram from 10/15/2020 and 10/08/2019. 2-D and 3-D bilateral screening mammography was performed with CAD. CAD is utilized. The current study was also evaluated with a Computer Aided Detection (CAD) system. Scattered fibroglandular densities are identified bilaterally. Biopsy marker clips in the left breast are again noted. No spiculated mass or malignant-appearing microcalcifications are seen. Axillae are unremarkable. IMPRESSION: BI-RADS Category 2 No mammographic features suspicious for malignancy are identified. ACR BI-RADS Category 2: Benign findings. Result letter will be mailed to the patient. Note: At least 10% of breast cancer is not imaged by mammography. Dictated by: Dictated on workstation # [id number]
== END ==
LOC: RAD 09:04
PROVIDERS: ATTEND Pediatrics
DX: Z12.31 Encounter for screening mammogram for malignant neoplasm of breast (principal)
CPT/HCPCS: 77063; 77067

== ENCOUNTER → 2022-04-02 | Outpatient (CLI) | payer MEDICARE, MEDICAID ==
[~2022-04-02] MED LIST changes: +CATHETER FLUSH 10 ML SYR IV PRN; +HOLD METFORMIN - RECEIVED CONTRAST 20 ML VIAL IV SCH; +IOHEXOL 350 MG/ML 100 ML (OMNIPAQUE 350) VIAL IV ONE; +NS 100 ML (IVPB) BAG IV ONE
--- NOTE | 2022-04-02 12:31 | Diagnostic Imaging Report ---
PROCEDURE: CT chest, abdomen, and pelvis with contrast. TECHNIQUE: Multiple contiguous axial images were obtained through the chest, abdomen, and pelvis after the administration of intravenous contrast. Auto Exposure Controls were utilized during the CT exam to meet ALARA standards for radiation dose reduction. INDICATION: Adenocarcinoma the uterus. Compared with CT angiogram chest 11/07/2020. No prior abdominal pelvic imaging. CHEST: A trach tube tip above the kimmie. Thoracic aorta patent and nonaneurysmal and nonacute. Some slight bibasilar deep dependent partial pulmonary atelectasis with the right lower lobe infiltrate on the prior previous study having resolved. No findings to suggest acute pneumonia or edema. At today's study some heterogeneous air trapping chronic. No pathological-appearing hilar, mediastinal or axillary lymph nodes. No acute or suspect chest wall lesion. ABDOMEN PELVIS: Uterus and adnexa CT appeared unremarkable. There is no bowel, biliary or urinary tract obstruction. No omental infiltration or ascites. Gallbladder absent. The liver and bile ducts appeared normal. Spleen, adrenals and pancreas nonfocal and nonacute. The kidneys unobstructed. Urinary bladder unremarkable. The pelvic sidewalls and ileo-inguinal lymph node chains appeared unremarkable. The right common iliac chain node measuring 8mm long axis is not pathologically enlarged. Inguinal canals normal. The vascular structures appeared patent. No pneumatosis. No free gas. No focal inflammatory changes. No suspicious lytic or sclerotic bony lesion. IMPRESSION: No findings of metastatic disease to the chest, abdomen or pelvis. Resolution of prior right lower lobe pneumonia. No acute chest disease. Abdominal pelvic portion showed no obstructive features, inflammatory processes or acute appearing abnormalities. Dictated by: Dictated on workstation # [id number]
== END ==
LOC: RAD 11:18
PROVIDERS: ATTEND Obstetrics & Gynecology Gynecologic Oncology
DX: C54.1 Malignant neoplasm of endometrium (principal)
CPT/HCPCS: 71260; 74177

== ENCOUNTER 2022-06-04 23:19 | Inpatient (IN) | payer MEDICARE, MEDICAID ==
[~2022-06-04] VITALS: Ht 165 cm; Wt 156.2 kg
[~2022-06-04 23:19] MED LIST changes: -ALBU2.5V4 NEB; +ALBU2.5V4 PO; -CATHETER FLUSH 10 ML SYR IV PRN; -HOLD METFORMIN - RECEIVED CONTRAST 20 ML VIAL IV SCH; -IOHEXOL 350 MG/ML 100 ML (OMNIPAQUE 350) VIAL IV ONE; -NS 100 ML (IVPB) BAG IV ONE
[2022-06-04] MEDS ORDERED: LACTATED RINGERS 1,000 ML IV ONE (23:30)
[2022-06-04] MEDS ORDERED: RT-ALBUTEROL HFA 8.5 GM INHALER IH STA (23:43)
[2022-06-04] MEDS ORDERED: ACETAMINOPHEN 500 MG TAB (TYLENOL) PO ONE (23:45)
[2022-06-04 23:49] LABS: PROTHROMBIN TIME PATIENT 13.7 SEC (12.2-14.7)
[2022-06-04 23:55] LABS: BASOPHILS # (AUTO) 0.1 10^3/uL (0.0-0.1); BASOPHILS % (AUTO) 1 % (0-10); EOSINOPHILS # (AUTO) 0.1 10^3/uL (0.0-0.3); EOSINOPHILS % (AUTO) 1 % (0-10); HEMATOCRIT 35 % (35-52); HEMOGLOBIN 11.2 g/dL (11.5-16.0); LYMPHOCYTES # (AUTO) 0.9 10^3/uL (1.0-4.0); LYMPHOCYTES % (AUTO) 9 % (12-44); MEAN CORPUSCULAR HEMOGLOBIN 27 pg (25-34); MEAN CORPUSCULAR HGB CONC 32 g/dL (32-36); MEAN CORPUSCULAR VOLUME 83 fL (80-99); MEAN PLATELET VOLUME 9.8 fL (9.0-12.2); MONOCYTES # (AUTO) 0.2 10^3/uL (0.0-1.0); MONOCYTES % (AUTO) 2 % (0-12); NEUTROPHILS # (AUTO) 8.1 10^3/uL (1.8-7.8); NEUTROPHILS % (AUTO) 79 % (42-75); PLATELET COUNT 302 10^3/uL (130-400); WHITE BLOOD COUNT 10.2 10^3/uL (4.3-11.0)
[2022-06-04 23:59] LABS: ALBUMIN 3.3 GM/DL (3.2-4.5); BILIRUBIN,TOTAL 0.4 MG/DL (0.1-1.0); CALCIUM 8.7 MG/DL (8.5-10.1); CREATININE SERUM 0.87 MG/DL (0.60-1.30); MAGNESIUM 1.9 MG/DL (1.6-2.4); POTASSIUM 2.9 MMOL/L (3.6-5.0); TOTAL PROTEIN 7.3 GM/DL (6.4-8.2)
[2022-06-05 00:11] LABS: BAND NEUTROPHILS 19 %; BASOPHILS % (MANUAL) 1 %; EOSINOPHILS % (MANUAL) 5 %; LYMPHOCYTES % (MANUAL) 14 %; MONOCYTES % (MANUAL) 1 %; NEUTROPHILS % (MANUAL) 57 %; PROLYMPHOCYTE % 3 %; RBC MORPH NORMAL
[2022-06-05 00:41] LABS: CLARITY,URINE CLEAR; COLOR,URINE YELLOW; PH,URINE 5.5 (5-9)
[2022-06-05 00:42] LABS: BILIRUBIN,URINE NEGATIVE (NEGATIVE); GLUCOSE, URINE (UA) NEGATIVE (NEGATIVE); KETONES,URINE NEGATIVE (NEGATIVE); LEUKOCYTE ESTERASE ,URINE 1+ (NEGATIVE); NITRITE,URINE NEGATIVE (NEGATIVE); PROTEIN,URINE NEGATIVE (NEGATIVE); RBC,URINE 0-2 /HPF
[2022-06-05 00:43] LABS: BACTERIA,URINE TRACE /HPF; SQUAMOUS EPITHELIAL CELL,UR 0-2 /HPF
[2022-06-05] MEDS ORDERED: RT-ALBUTEROL/IPRATROPIUM 3 ML (DUONEB) VIAL INH ONE (01:00)
[2022-06-05] MEDS ORDERED: NS IV 1000 ML 1,000 ML IV ONE (01:00)
[2022-06-05] MEDS ORDERED: CEFEPIME INJECTION 2,000 MG in NS (IVPB) 50 ML IV ONE ×2 (01:00→03:45)
[2022-06-05] MEDS ORDERED: POTASSIUM CL 10MEQ/50ML IVPB 50 ML IV ONE (01:00)
--- NOTE | 2022-06-05 01:30 | ED General ---
General Chief Complaint: Respiratory Problems Stated Complaint: SOA Nursing Triage Note: PT ARRIVED BY [facility] WITH COMPLAINTS OF FEVER, COUGH, AND SOB. PT HAD A HYSTERECTOMY ON May. Source of Information: Patient, EMS, Old Records Exam Limitations: No Limitations History of Present Illness Date Seen by Provider: Jun 04, 2022 Time Seen by Provider: 23:20 Initial Comments This 61 yo woman presents to the ER with high fever, cough and SOA about 10 days after hysterectomy at [facility]. She has COPD, sarcoidosis and a tracheostomy. Hysterectomy was performed by Dr. Cornelius for uterine cancer. She has a general oncology referral for July 05. There were some inaccessible lymphnodes not removed during surgery. Patient uses O2 at 3 lpm via tracheostomy. Patient reports she was prescribed anticoagulation after surgery which she has not yet picked up from pharmacy. According to filling record this was lovenox 40 mg. She is wheezing but is currently stable on her usual 3 lpm. Allergies and Home Medications Allergies Coded Allergies: No Known Drug Allergies (Unverified , 06/18/17) Patient Home Medication List Home Medication List Reviewed: Yes Albuterol Sulfate (Albuterol Sulfate) 2.5 Mg/3 Ml Vial.neb, 3 ML NEB Q6H PRN for SHORTNESS OF BREATH, (Reported) Entered as Reported by: MIRANDA CRISTOBAL on 11/07/20 1001 Albuterol Sulfate (Ventolin Hfa) 90 Mcg Hfa.aer.ad, 2 PUFF INH Q6H PRN for SHORTNESS OF BREATH, (Reported) Entered as Reported by: MIRANDA CRISTOBAL on 12/02/21 1003 Azithromycin (Azithromycin) 250 Mg Tablet, 250 MG PO DAILY Prescribed by: BRITT VELASCO on 12/04/21 1054 Cyclobenzaprine HCl (Cyclobenzaprine HCl) 5 Mg Tablet, 5 MG PO TID PRN for MUSCLE SPASMS, (Reported) Entered as Reported by: MIRANDA CRISTOBAL on 12/02/21 1003 Fluoxetine HCl (Fluoxetine HCl) 40 Mg Capsule, 40 MG PO DAILY, (Reported) Entered as Reported by: MIRANDA CRISTOBAL on 11/07/20 1001 Furosemide (Furosemide) 20 Mg Tablet, 20 MG PO DAILY PRN for FLUID RETENTION, (Reported) Entered as Reported by: MIRANDA CRISTOBAL on 12/02/21 1003 Gabapentin (Neurontin) 300 Mg Capsule, 300 MG PO TID, (Reported) Entered as Reported by: MIRANDA CRISTOBAL on 12/02/21 1003 Guaifenesin (Mucinex) 600 Mg Tab.er.12h, 600 MG PO BID Prescribed by: BRITT VELASCO on 12/04/21 1054 Hydrochlorothiazide (Hydrochlorothiazide) 25 Mg Tablet, 25 MG PO DAILY, (Reported) Entered as Reported by: VIKKI CHOI on 06/19/17 1130 Lidocaine (Lidocaine 5% Patch) 1 Each Adh..patch, 1 PATCH TD DAILY PRN for PAIN- BREAKTHROUGH, (Reported) Entered as Reported by: MIRANDA CRISTOBAL on 11/07/20 1001 Naproxen Sodium (Aleve) 220 Mg Tablet, 220-440 MG PO Q8H PRN for PAIN-MILD (1- 4), (Reported) Entered as Reported by: MIRANDA CRISTOBAL on 12/02/21 1003 Prednisone (Prednisone) 50 Mg Tab, 50 MG PO DAILY Prescribed by: BRITT VELASCO on 12/04/21 1054 Rosuvastatin Calcium (Rosuvastatin Calcium) 40 Mg Tablet, 40 MG PO HS, (Reported) Entered as Reported by: SHARIFA GONZÁLES on 09/15/20 1251 Tiotropium Alfred (Spiriva) 1 Inh Aerp, 1 PUFF INH DAILY PRN for SHORTNESS OF BREATH, (Reported) Entered as Reported by: MIRANDA CRISTOBAL on 11/07/20 1001 [Potassium Cl 10%] 20MEQ/15ML SOLN, 15 ML PO DAILY PRN for TAKE WITH FUROSEMIDE, (Reported) Entered as Reported by: MIRANDA CRISTOBAL on 11/07/20 1001 Review of Systems Review of Systems Constitutional: see HPI EENTM: see HPI Respiratory: see HPI Cardiovascular: see HPI Gastrointestinal: see HPI Genitourinary: see HPI : No Musculoskeletal: no symptoms reported Skin: no symptoms reported Psychiatric/Neurological: No Symptoms Reported Hematologic/Lymphatic: See HPI Past Hpjcclx-Miniwz-Weayaj Hx Patient Social History Tobacco Use?: No Substance use?: No Alcohol Use?: No Immunizations Up To Date Tetanus Booster (TDap): Unknown PED Vaccines UTD: Yes Influenza Vaccine Up-to-Date: Yes; Up-to-Date First/Initial COVID19 Vaccinat: YES Second COVID19 Vaccination Mickey: YES Third COVID19 Vaccination Date: NO Seasonal Allergies Seasonal Allergies: No Past Medical History Surgery/Hospitalization HX: Cholesystectomy (2020) Surgeries: Yes (PORT RIGHT CHEST/REMOVED; ABSCESS I&D LEFT AXILLA; PERMANENT TRACHEOSTOMY) Gallbladder, Hysterectomy, Tracheostomy Respiratory: Yes (PT HAS TRACH D/T SARCOIDOSIS, WEAR OXYGEN AT HOME) Asthma, Pneumonia, Chronic Bronchitis, COPD Currently Using CPAP: No Currently Using BIPAP: No Cardiac: Yes High Cholesterol, Hypertension Neurological: No Female Reproductive Disorders: Denies PARTS PULLER History: Menopausal Genitourinary: No Gastrointestinal: Yes (hepatitis C treated with Harvoni in [id number]; ANAL CANCER--2011) Hepatitis Musculoskeletal: Yes (SARCOIDOSIS) Endocrine: Yes ("BORDERLINE DIABETIC"; MORBID OBESITY) HEENT: Yes (PERMANENT TRACH; EDENTULOUS) Loss of Vision: Denies Hearing Impairment: Denies Cancer: Yes (RECTAL/ANAL CANCER IN 2011-NO SURGERY--TREATED WITH CHEMO + RADIATION) Rectal, Uterine Did You Recieve Any Treatments: Yes What Type of Treatment Did You: Chemotherapy, Radiation, Surgical Intervention Psychosocial: Yes Anxiety, Depression Integumentary: No Blood Disorders: No Adverse Reaction/Blood Tranf: No Family Medical History Patient reports no known family medical history. Hypertension, Lung Disease Physical Exam-Suspected Sepsis Physical Exam Vital Signs Vital Signs - First Documented 06/05/22 06/05/22 01:37 02:04 Resp 24 FiO2 26 Capillary Refill : Blood Pressure Mean: 100 Height, Weight, BMI Height: 5'5.00" Weight: 335lbs. 0.4oz. 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 Norm as Tested Skin: normal color, warm/dry Focused Exam Lactate Level 06/04/22 23:20: Lactic Acid Level 1.32 Lactic Acid Level Progress/Results/Core Measures Suspected Sepsis SIRS Temperature: Pulse: 120 Respiratory Rate: Laboratory Tests 06/04/22 23:20: White Blood Count 10.2 06/05/22 05:20: White Blood Count 11.8H Blood Pressure 112 /94 Mean: 100 06/04/22 23:20: Lactic Acid Level 1.32 Laboratory Tests 06/04/22 23:20: Creatinine 0.87, INR Comment 1.0, Platelet Count 302, Total Bilirubin 0.4 06/05/22 05:20: Creatinine 0.96, Platelet Count 282, Total Bilirubin 0.3 Results/Orders Lab Results Laboratory Tests Test 06/04/22 23:20 06/04/22 23:31 06/04/22 23:50 06/05/22 01:40 Range/Units White Blood Count 10.2 4.3-11.0 10^3/uL Red Blood Count 4.21 3.80-5.11 10^6/uL Hemoglobin 11.2 L 11.5-16.0 g/dL Hematocrit 35 35-52 % Mean Corpuscular Volume 83 80-99 fL Mean Corpuscular Hemoglobin 27 25-34 pg Mean Corpuscular Hemoglobin Concent 32 32-36 g/dL Red Cell Distribution Width 15.2 H 10.0-14.5 % Platelet Count 302 130-400 10^3/uL Mean Platelet Volume 9.8 9.0-12.2 fL Immature Granulocyte % (Auto) 9 % Neutrophils (%) (Auto) 79 H 42-75 % Lymphocytes (%) (Auto) 9 L 12-44 % Monocytes (%) (Auto) 2 0-12 % Eosinophils (%) (Auto) 1 0-10 % Basophils (%) (Auto) 1 0-10 % Neutrophils # (Auto) 8.1 H 1.8-7.8 10^3/uL Lymphocytes # (Auto) 0.9 L 1.0-4.0 10^3/uL Monocytes # (Auto) 0.2 0.0-1.0 10^3/uL Eosinophils # (Auto) 0.1 0.0-0.3 10^3/uL Basophils # (Auto) 0.1 0.0-0.1 10^3/uL Immature Granulocyte # (Auto) 0.9 H 0.0-0.1 10^3/uL Neutrophils % (Manual) 57 % Lymphocytes % (Manual) 14 % Prolymphocyte % 3 % Monocytes % (Manual) 1 % Eosinophils % (Manual) 5 % Basophils % (Manual) 1 % Band Neutrophils 19 % Blood Morphology Comment NORMAL Prothrombin Time 13.7 12.2-14.7 SEC INR Comment 1.0 0.8-1.4 Activated Partial Thromboplast Time 29 24-35 SEC Sodium Level 139 135-145 MMOL/L Potassium Level 2.9 L 3.6-5.0 MMOL/L Chloride Level 99 98-107 MMOL/L Carbon Dioxide Level 26 21-32 MMOL/L Anion Gap 14 5-14 MMOL/L Blood Urea Nitrogen 8 7-18 MG/DL Creatinine 0.87 0.60-1.30 MG/DL Estimat Glomerular Filtration Rate 77 BUN/Creatinine Ratio 9 Glucose Level 123 H 70-105 MG/DL Lactic Acid Level 1.32 0.50-2.00 MMOL/L Calcium Level 8.7 8.5-10.1 MG/DL Corrected Calcium 9.3 8.5-10.1 MG/DL Magnesium Level 1.9 1.6-2.4 MG/DL Total Bilirubin 0.4 0.1-1.0 MG/DL Aspartate Amino Transf (AST/SGOT) 22 5-34 U/L Alanine Aminotransferase (ALT/SGPT) 18 0-55 U/L Alkaline Phosphatase 113 40-136 U/L C-Reactive Protein High Sensitivity 12.59 H 0.00-0.50 MG/DL Total Protein 7.3 6.4-8.2 GM/DL Albumin 3.3 3.2-4.5 GM/DL Procalcitonin 0.16 H <0.10 NG/ML Influenza Type A (RT-PCR) Not Detected Not Detecte Influenza Type B (RT-PCR) Not Detected Not Detecte SARS-CoV-2 RNA (RT-PCR) Not Detected Not Detecte Urine Color YELLOW Urine Clarity CLEAR Urine pH 5.5 5-9 Urine Specific Jewell 1.015 L 1.016-1.022 Urine Protein NEGATIVE NEGATIVE Urine Glucose (UA) NEGATIVE NEGATIVE Urine Ketones NEGATIVE NEGATIVE Urine Nitrite NEGATIVE NEGATIVE Urine Bilirubin NEGATIVE NEGATIVE Urine Urobilinogen 1.0 < = 1.0 MG/DL Urine Leukocyte Esterase 1+ H NEGATIVE Urine RBC (Auto) 1+ H NEGATIVE Urine RBC 0-2 /HPF Urine WBC 2-5 /HPF Urine Squamous Epithelial Cells 0-2 /HPF Urine Crystals NONE /LPF Urine Bacteria TRACE /HPF Urine Casts NONE /LPF Urine Mucus NEGATIVE /LPF Urine Culture Indicated NO D-Dimer 9.98 H 0.00-0.49 UG/ML Test 06/05/22 05:20 Range/Units White Blood Count 11.8 H 4.3-11.0 10^3/uL Red Blood Count 3.90 3.80-5.11 10^6/uL Hemoglobin 10.5 L 11.5-16.0 g/dL Hematocrit 33 L 35-52 % Mean Corpuscular Volume 84 80-99 fL Mean Corpuscular Hemoglobin 27 25-34 pg Mean Corpuscular Hemoglobin Concent 32 32-36 g/dL Red Cell Distribution Width 15.3 H 10.0-14.5 % Platelet Count 282 130-400 10^3/uL Mean Platelet Volume 9.7 9.0-12.2 fL Immature Granulocyte % (Auto) 5 % Neutrophils (%) (Auto) 80 H 42-75 % Lymphocytes (%) (Auto) 12 12-44 % Monocytes (%) (Auto) 3 0-12 % Eosinophils (%) (Auto) 1 0-10 % Basophils (%) (Auto) 0 0-10 % Neutrophils # (Auto) 9.5 H 1.8-7.8 10^3/uL Lymphocytes # (Auto) 1.4 1.0-4.0 10^3/uL Monocytes # (Auto) 0.3 0.0-1.0 10^3/uL Eosinophils # (Auto) 0.1 0.0-0.3 10^3/uL Basophils # (Auto) 0.1 0.0-0.1 10^3/uL Immature Granulocyte # (Auto) 0.5 H 0.0-0.1 10^3/uL Sodium Level 139 135-145 MMOL/L Potassium Level 2.9 L 3.6-5.0 MMOL/L Chloride Level 102 98-107 MMOL/L Carbon Dioxide Level 26 21-32 MMOL/L Anion Gap 11 5-14 MMOL/L Blood Urea Nitrogen 7 7-18 MG/DL Creatinine 0.96 0.60-1.30 MG/DL Estimat Glomerular Filtration Rate 68 BUN/Creatinine Ratio 7 Glucose Level 136 H 70-105 MG/DL Calcium Level 8.1 L 8.5-10.1 MG/DL Corrected Calcium 8.9 8.5-10.1 MG/DL Phosphorus Level 2.7 2.3-4.7 MG/DL Magnesium Level 2.1 1.6-2.4 MG/DL Total Bilirubin 0.3 0.1-1.0 MG/DL Aspartate Amino Transf (AST/SGOT) 25 5-34 U/L Alanine Aminotransferase (ALT/SGPT) 16 0-55 U/L Alkaline Phosphatase 92 40-136 U/L Total Protein 6.5 6.4-8.2 GM/DL Albumin 3.0 L 3.2-4.5 GM/DL My Orders Orders - CHELSEA DOUGLAS MD Cbc With Automated Diff (06/04/22 23:) Comprehensive Metabolic Panel (06/04/22 23:) Blood Culture (06/04/22 23:) Sputum Culture (06/04/22:) Urinalysis (06/04/22:) Urine Culture (06/04/22:27) Protime With Inr (06/04/22:) Partial Thromboplastin Time (06/04/22 23:27) Ed Iv/Invasive Line Start (06/04/22:27) O2 (06/04/22:) Remove Rings In Anticipation O (06/04/22 23:) Lactic Acid Analyzer (06/04/22 23:27) Hs C Reactive Protein (06/04/22:) Magnesium (06/04/22 23:27) Procalcitonin (Pct) (06/04/22 23:27) Covid 19 Inhouse Test (06/04/22 23:27) Influenza A And B By Pcr (06/04/22 23:27) Lactated Ringers (Lr 1000 Ml Iv Solution (06/04/22 23:30) Albuterol Inhaler (Albuterol) (06/04/22 23:43) Acetaminophen Tablet (Tylenol Tablet) (06/04/22 23:45) Chest 1 View, Ap/Pa Only (06/05/22 00:01) Manual Differential (06/04/22 23:20) Albuterol/Ipra Inhalation Soln (Duoneb I (06/05/22 01:00) Svn Small Volume Nebulizer (06/05/22 00:46) Potassium Cl 10meq/50ml Ivpb (Kcl 10 Meq (06/05/22 01:00) Ns Iv 1000 Ml (Sodium Chloride 0.9%) (06/05/22 01:00) Cefepime Injection (Maxipime Injection) (06/05/22 01:00) Fibrin Degradation Products (06/05/22 01:37) Cefepime Injection (Maxipime Injection) (06/05/22 03:45) Ns Iv 1000 Ml (Sodium Chloride 0.9%) (06/05/22 05:00) Potassium Cl 10meq/50ml Ivpb (Kcl 10 Meq (06/05/22 04:30) Medications Given in ED Current Medications Medications Dose Ordered Sig/Sandra Route Start Time Stop Time Status Last Admin Dose Admin Acetaminophen 1,000 mg ONCE ONCE PO 06/04/22 23:45 06/04/22 23:46 DC 06/04/22 23:58 1,000 MG Albuterol/ Ipratropium 3 ml ONCE ONCE INH 06/05/22 01:00 06/05/22 01:01 DC 06/05/22 01:37 3 ML Lactated Ringer's 1,000 ml @ 0 mls/hr Q0M ONCE IV 06/04/22 23:30 06/04/22 23:32 DC 06/04/22 23:36 0 MLS/HR Potassium Chloride 50 ml @ 50 mls/hr ONCE ONCE IV 06/05/22 01:00 06/05/22 01:59 DC 06/05/22 01:10 50 MLS/HR Sodium Chloride 1,000 ml @ 100 mls/hr Q10H ONCE IV 06/05/22 01:00 06/05/22 05:07 DC 06/05/22 01:10 100 MLS/HR Vital Signs/I&O 06/04/22 06/04/22 06/04/22 06/05/22 23:20 23:20 23:20 01:11 Temp 39.4 Pulse 120 B/P (MAP) 112/94 (100) Pulse Ox 94 94 98 O2 Delivery Nasal Cannula Trach Collar Trach Collar Trach Collar O2 Flow Rate 2.00 2.00 10/29/06/05/22 06/05/22 06/05/22 01:37 02:04 02:15 02:28 Pulse 117 110 108 Resp 24 B/P (MAP) 103/76 129/84 (99) Pulse Ox 96 95 95 O2 Delivery Trach Collar Room Air Nasal Cannula Venturi Mask O2 Flow Rate 3.00 28.00 FiO2 26 06/05/22 06/05/22 06/05/22 06/05/22 02:30 02:30 02:39 02:45 Temp 39.4 Pulse 110 120 112 Resp 24 20 B/P (MAP) 85/63 (70) 89/54 (66) Pulse Ox 95 93 94 96 O2 Delivery Nasal Cannula Trach Collar Nasal Cannula Venturi Mask Venturi Mask O2 Flow Rate 3.00 3.00 28.00 28.00 FiO2 28 06/05/22 06/05/22 06/05/22 06/05/22 03:00 03:30 04:00 04:00 Pulse 108 105 104 Resp 21 B/P (MAP) 90/43 (59) 81/43 (56) 108/69 (82) Pulse Ox 92 92 94 96 O2 Delivery Nasal Cannula Nasal Cannula Trach Collar Nasal Cannula Venturi Mask Venturi Mask Venturi Mask O2 Flow Rate 3.00 3.00 3.00 28.00 28.00 28.00 FiO2 28 06/05/22 06/05/22 05:00 06:00 Pulse 100 98 Resp 21 19 B/P (MAP) 120/82 (95) 106/72 (83) Pulse Ox 96 96 O2 Delivery Nasal Cannula Nasal Cannula Venturi Mask Venturi Mask O2 Flow Rate 3.00 3.00 28.00 28.00 Capillary Refill : Blood Pressure Mean: 100 Progress Note : Progress Note Patient was first treated with albuterol inhaler. She was later treated with DuoNeb after COVID-19 swab returned negative. She was negative for both COVID- 19 and influenza. There were no symptoms to suggest infection was from her surgical sites. Source is more likely pneumonia. Antibiotic therapy was started with cefepime. Hypokalemia was noted and potassium replacement was started by IV route. After discussion with Dr. Lynne, D-dimer was ordered. Result was pending at the time of admission. It was later noted D-dimer was elevated and Dr. Lynne was notified. I discussed CODE STATUS with the patient, and she elected full code. Report was given to eICU. Diagnostic Imaging Diagonstic Imaging: Xray Plain Films/CT/US/NM/MRI: chest Comments Chest x-ray viewed by me. Report not yet available. There appears to be right lower lobe infiltrate when compared with prior. Departure Communication (Admissions) Time/Spoke to Admitting Phy: 01:30 Dr. Lynne Impression Primary Impression: Sepsis Qualified Codes: A41.9 - Sepsis, unspecified organism Additional Impressions: Right lower lobe pneumonia Qualified Codes: J18.9 - Pneumonia, unspecified organism COPD exacerbation Hypokalemia Elevated d-dimer Disposition: ADMITTED INPATIENT Condition: Improved Admissions Decision to Admit Reason: Admit from ER (General) Decision to Admit/Date: Jun 05, 2022 Time/Decision to Admit Time: 01:30 Departure-Patient Inst. Referrals: SHARIFA BULLOCK MD (PCP/Family) Primary Care Physician Copy Copies To 1: SHARIFA BULLOCK MD, JOSHUA T MD Jun 05, 2022 01:30
[2022-06-05] MEDS ORDERED: NS IV 1000 ML 1,000 ML ONE (02:35)
[2022-06-05 02:39] VITALS: BP 112/94
[2022-06-05] MEDS ORDERED: POTASSIUM CL 10MEQ/50ML IVPB 200 ML IV ONE (02:40)
[2022-06-05] MEDS: POTASSIUM CL 10MEQ/50ML IVPB 50 ML IV SCH ×4 (04:45→06:52)
[2022-06-05] MEDS: NS IV 1000 ML 1,000 ML IV SCH ×3 (05:00→21:58)
[2022-06-05 05:28] LABS: BASOPHILS # (AUTO) 0.1 10^3/uL (0.0-0.1); BASOPHILS % (AUTO) 0 % (0-10); EOSINOPHILS # (AUTO) 0.1 10^3/uL (0.0-0.3); EOSINOPHILS % (AUTO) 1 % (0-10); HEMATOCRIT 33 % (35-52); HEMOGLOBIN 10.5 g/dL (11.5-16.0); LYMPHOCYTES # (AUTO) 1.4 10^3/uL (1.0-4.0); LYMPHOCYTES % (AUTO) 12 % (12-44); MEAN CORPUSCULAR HEMOGLOBIN 27 pg (25-34); MEAN CORPUSCULAR HGB CONC 32 g/dL (32-36); MEAN CORPUSCULAR VOLUME 84 fL (80-99); MEAN PLATELET VOLUME 9.7 fL (9.0-12.2); MONOCYTES # (AUTO) 0.3 10^3/uL (0.0-1.0); MONOCYTES % (AUTO) 3 % (0-12); NEUTROPHILS # (AUTO) 9.5 10^3/uL (1.8-7.8); NEUTROPHILS % (AUTO) 80 % (42-75); PLATELET COUNT 282 10^3/uL (130-400); WHITE BLOOD COUNT 11.8 10^3/uL (4.3-11.0)
[2022-06-05 05:47] LABS: POTASSIUM 2.9 MMOL/L (3.6-5.0)
[2022-06-05 05:49] LABS: CALCIUM 8.1 MG/DL (8.5-10.1)
[2022-06-05 05:50] LABS: TOTAL PROTEIN 6.5 GM/DL (6.4-8.2)
[2022-06-05 05:52] LABS: BILIRUBIN,TOTAL 0.3 MG/DL (0.1-1.0)
[2022-06-05 05:53] LABS: CREATININE SERUM 0.96 MG/DL (0.60-1.30); PHOSPHORUS 2.7 MG/DL (2.3-4.7)
[2022-06-05 05:56] LABS: MAGNESIUM 2.1 MG/DL (1.6-2.4)
[2022-06-05] MEDS: MAGNESIUM 1 GM/100 ML IVPB 100 ML IV SCH (06:00)
[2022-06-05] MEDS: KCL 20 MEQ TAB (K-DUR) PO SCH (06:00)
[2022-06-05] MEDS ORDERED: NS IV 500 ML 500 ML IV PRN (06:00)
[2022-06-05] MEDS ORDERED: POTASSIUM CL 10 MEQ/50 ML IVPB (PRE-MIX) IV SCH ×2 (06:30→08:30)
[2022-06-05] MEDS ORDERED: ACETAMINOPHEN 500 MG TAB (TYLENOL) PO PRN (06:30)
[2022-06-05] MEDS ORDERED: CEFEPIME 1,000 MG/NS 50 ML IVPB IV SCH ×2 (06:30)
[2022-06-05] MEDS ORDERED: NS IV 1000 ML 1,000 ML IV SCH ×2 (06:30→10:00)
[2022-06-05] MEDS ORDERED: ONDANSETRON 4 MG/2 ML (SDV) Z0FRAN IV PRN (06:30)
[2022-06-05] MEDS: RT-ALBUTEROL/IPRATROPIUM 3 ML (DUONEB) VIAL INH SCH ×5 (07:10→21:46)
--- NOTE | 2022-06-05 07:17 | Diagnostic Imaging Report ---
EXAMINATION: Chest radiograph, portable AP view. DATE: 06/05/2022 12:09 AM INDICATION: 61-year-old female, fever. COMPARISON: December 01, 2021. FINDINGS: There is a tracheostomy tube again noted. Heart size and mediastinal contours are unchanged. There is no identified pneumothorax. There is no large pleural effusion. There is no identified interval focal airspace consolidation. There are technical limitations of the exam relating to patient body habitus and difficulties with exposure. IMPRESSION: 1. No radiographically apparent interval acute cardiopulmonary abnormality. Dictated by: Dictated on workstation # [id number]
--- NOTE | 2022-06-05 08:11 | History & Physical-Hospitalist ---
History of Present Illness HPI/Chief Complaint Chief complaint: Respiratory failure acute on chronic HPI: This is a 61-year-old female who presented to the ER with shortness of breath and found to have pneumonia and respiratory failure superimposed on chronic respiratory failure with tracheostomy due to sarcoidosis end-stage. Patient is currently much improved. Labs reviewed. Antibiotics maintained. Elevated D-dimer will require CT angiogram and I did give therapeutic dose Lovenox until that result is back. Source: patient Exam Limitations: no limitations Date Seen 06/05/22 Time Seen by a Provider: 11:00 Attending Physician Dorcas Aaron MD PCP Admitting Physician: Coretta Lynne DO Attending Physician: Coretta Lynne DO Referring Physician Date of Admission Jun 05, 2022 at 01:30 Home Medications & Allergies Home Medications Reviewed patient Home Medication Reconciliation performed by pharmacy medication reconciliations research technician and/or nursing. Patients Allergies have been reviewed. Allergies Allergies Coded Allergies No Known Drug Allergies (Gdayjddkug64/11/17) Past Bvmzaxg-Lgdzio-Idpczi Hx Patient Social History Marrital Status: single Employed/Student: unemployed Tobacco Use?: No Smoking Status: Never a Smoker Smokeless Tobacco Frequency: Never a User Use of E-Cig and/or Vaping dev: No Substance use?: No Alcohol Use?: No Pt feels they are or have been: No Immunizations Up To Date Date of Influenza Vaccine: May 08, 2022 First/Initial COVID19 Vaccinat: YES Second COVID19 Vaccination Mickey: YES Tetanus Booster (TDap): Unknown Hepatitis A: No Hepatitis B: No PED Vaccines UTD: Yes Seasonal Allergies Seasonal Allergies: No Current Status status: No status: No Advance Directives: No Communicates: Verbally Primary Language: Iranian Preferred Spoken Language: Iranian Is interpretation needed?: No Implanted or Applied Medical D: Other Past Medical History Surgeries: Gallbladder, Hysterectomy, Tracheostomy Asthma, Pneumonia, Chronic Bronchitis, COPD Currently Using CPAP: No Currently Using BIPAP: No 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 Hypertension, Lung Disease Review of Systems Constitutional: see HPI Respiratory: cough, dyspnea on exertion, short of breath Physical Exam Physical Exam Vital Signs Vital Signs - First Documented 06/05/22 06/05/22 01:37 02:04 Resp 24 FiO2 26 Capillary Refill : Height, Weight, BMI Height: 5'5.00" Weight: 335lbs. 0.4oz. 151.612200oe; 57.19 BMI Method:Actual General Appearance: No Apparent Distress, Chronically ill, Obese Eyes: Right Eye Normal Inspection, Right Eye PERRL HEENT: PERRL/EOMI, Normal ENT Inspection, Pharynx Normal, Moist Mucous Membranes Neck: Full Range of Motion, Normal Inspection, Non Tender, Other (trach) Respiratory: Chest Non Tender, Lungs Clear, No Accessory Muscle Use, No Respiratory Distress, Decreased Breath Sounds Cardiovascular: Regular Rate, Rhythm, No Edema, No Gallop, No JVD, No Murmur, Normal Peripheral Pulses Gastrointestinal: Normal Bowel Sounds, No Organomegaly, No Pulsatile Mass, Non Tender, Soft Back: Normal Inspection, No CVA Tenderness, No Vertebral Tenderness Extremity: Normal Capillary Refill, Normal Inspection, Normal Range of Motion, Non Tender, No Calf Tenderness, No Pedal Edema Neurologic/Psychiatric: Alert, Oriented x3, No Motor/Sensory Deficits, Normal Mood/Affect Skin: Normal Color, Warm/Dry Lymphatic: No Adenopathy Results Results/Procedures Labs Laboratory Tests 06/04/22 23:20 06/05/22 05:20 06/05/22 09:54 Patient resulted labs reviewed. Assessment/Plan Admission Diagnosis Assessment: Acute on chronic respiratory failure Pneumonia Tracheostomy status Sarcoidosis severe Obesity Hypertension Elevated D-dimer with no DVT on venous Doppler ultrasound and no PE on CT angiogram Plan: Supportive care Monitor closely Admission Status: Inpatient Order (span 2 midnights) Reason for Inpatient Admission: Respiratory failure CORETTA LYNNE DO Jun 05, 2022 08:11
[2022-06-05] MEDS ORDERED: guaiFENesin/CODEINE (ROBITUSSIN AC) 10ML UDC PO PRN (08:30)
[2022-06-05] MEDS ORDERED: DOCUSATE SODIUM 100 MG (COLACE) CAP PO PRN (08:30)
[2022-06-05] MEDS ORDERED: ACETAMINOPHEN 325 MG TABLET PO PRN (08:30)
[2022-06-05] MEDS ORDERED: morphine INJ 10 MG/ML 1ML (SYR OR VIAL) IVP PRN (08:30)
[2022-06-05] MEDS ORDERED: ONDANSETRON 4 MG (ZOFRAN) ORAL DISSOLVE TAB PO PRN (08:30)
[2022-06-05] MEDS ORDERED: FLEET ENEMA ADULT 1 EA BTL PR PRN (08:30)
[2022-06-05] MEDS ORDERED: ONDANSETRON 4 MG/2 ML (SDV) Z0FRAN IVP PRN (08:30)
[2022-06-05] MEDS ORDERED: ALPRAZolam 0.25 MG (XANAX) TAB PO PRN (08:30)
[2022-06-05] MEDS ORDERED: LOPERAMIDE 2 MG (IMODIUM) TABLET PO PRN (08:30)
[2022-06-05] MEDS ORDERED: MENTHOL/ZINC OXIDE (CALMOSEPTINE) 113 GM TUBE TP PRN (08:30)
[2022-06-05] MEDS ORDERED: LACTULOSE SYRUP 10GM/15ML (ENULOSE) 30ML UDC PO PRN (08:30)
[2022-06-05] MEDS ORDERED: BISACODYL 10 MG SUPP (DULCOLAX) PR PRN (08:30)
[2022-06-05] MEDS ORDERED: MELATONIN 3 MG TABLET PO PRN (08:30)
[2022-06-05] MEDS ORDERED: HYDROcodone/APAP 5 MG/325 MG (LORTAB) TAB PO PRN (08:30)
[2022-06-05] MEDS ORDERED: diphenhydrAMINE 25 MG TAB (BENADRYL) PO PRN (08:30)
[2022-06-05] MEDS ORDERED: CALCIUM CARBONATE 500 MG (TUMS) TAB.CHEW PO PRN (08:30)
[2022-06-05] MEDS ORDERED: ENOXAPARIN 150 MG/ML (LOVENOX) SYR SQ SCH (09:00)
[2022-06-05 09:14] VITALS: BP 109/79
[2022-06-05] MEDS ORDERED: IOHEXOL 350 MG/ML 100 ML (OMNIPAQUE 350) VIAL IV ONE (09:30)
[2022-06-05] MEDS ORDERED: HOLD METFORMIN - RECEIVED CONTRAST 20 ML VIAL IV SCH (09:30)
[2022-06-05] MEDS ORDERED: NS 100 ML (IVPB) BAG IV ONE (09:30)
[2022-06-05] MEDS ORDERED: CATHETER FLUSH 10 ML SYR IV PRN (09:30)
--- NOTE | 2022-06-05 09:52 | Diagnostic Imaging Report ---
EXAM: US VENOUS LOWER EXT LOGAN INDICATION: Lower extremity pain bilaterally. COMPARISON: None. TECHNIQUE: Duplex, garcia-scale and color-flow imaging of the bilateral lower extremities venous system was performed FINDINGS: The bilateral common femoral vein, superficial femoral vein, profunda femoris, and popliteal veins are normal. These vessels show normal compressibility, color flow, and doppler augmentation. The deep calf veins demonstrate no distinct intraluminal thrombus where seen. IMPRESSION: No evidence of deep venous thrombosis in the bilateral lower extremities. Dictated by: Dictated on workstation # [id number]
[2022-06-05] MEDS: CEFEPIME 1,000 MG/NS 50 ML IVPB IV SCH ×6 (10:13→21:57)
[2022-06-05] MEDS: SENNA W/DOCUSATE (SENOKOT S) TABLET PO SCH ×2 (10:14→21:00)
[2022-06-05] MEDS: polyethylene glycoL POWDER 17 GM (MIRALAX) PACK PO SCH ×2 (10:14→21:00)
[2022-06-05 10:22] LABS: CREATININE SERUM 0.89 MG/DL (0.60-1.30)
--- NOTE | 2022-06-05 10:28 | Tele-ICU Consult ---
History of Present Illness History of Present Illness Date Seen by Provider: Jun 05, 2022 Time Seen by Provider: 10:26 Date of Admission (Tele-ICU Physician , consultation as per request of PCP Service provided via interactive audio and video telecommunications E-CARE system to a patient admitted to ICU bed in [facility]. Available chart/ vitals / labs / Images reviewed H&P is from ER notes Patient's information available about PMH, Shx, Fhx allergy reviewed inEMR. ROS as per chart and RN report Now in ICU, hemodynamically stable Video assessment done using teleICU camera, rest of exam as per RN Discussed with RN. Consultants: Hospital course: (06/05) 61yr F admitted for Sepsis Pneumonia. A/P Acute resp failure - s/p recent sx/ + CA and elev Ddimer - at risk for PE , = asper chart : prescribed lovenox 40 after surgery which she has not yet picked up from pharm acy - to r/o PE - ct chest pending , US - 06/05 neg for dvt - on full dose lovenox now - reassess after CT chronic hypoxix resp failure - O2 at 3 lpm via tracheostom - baseline needs AECOPD - Started on nebs and antibiotics _ MIGHT NEED STEROIDS , id wheezing or steroids dependent Fever, LRTI suspected. possible PNA - NEG covid, flu - cont abx - will review CT images for PNA signs h/o Sarcoidosis of lung - not on immunomodulators , ? chronic steroids s/p Tracheostomy - not vent dependent Hypokalemia Replace lytes s/p 10 days after hysterectomy or uterine cancer - pain coplans as per oncology / pcpc ntroled - h/o RECTAL/ANAL CANCER IN 2011-NO SURGERY--TREATED WITH CHEMO + RADIATION Lines : , (Central Line Necessity Reviewed) Espinal: OG: Nutrition: Analgesia: Anxiety/ delirium VTE Prophylaxis: Stress Ulcer Prophylaxis: Glycemic Control: Plans in collaboration with bedside consultants and IM MDs. Discussed with RN to reach out if any questions or concerns A total of _ minutes of critical care time was devoted to this patient today, required to treat and/or prevent further deterioration of critical care condition ( as above ) . I am remotely monitoring this patient from another state. I am unable to do the bedside exam, and history/physical and pertinent information is taken from other notes in the computer and bedside staff. Allergies and Home Medications Allergies Coded Allergies: No Known Drug Allergies (Unverified , 06/18/17) Home Medications Albuterol Sulfate 2.5 Mg/3 Ml Vial.neb, 3 ML NEB Q6H PRN for SHORTNESS OF BREATH, (Reported) Albuterol Sulfate 90 Mcg Hfa.aer.ad, 2 PUFF INH Q6H PRN for SHORTNESS OF BREATH, (Reported) Azithromycin 250 Mg Tablet, 250 MG PO DAILY Prescribed by: BRITT VELASCO on 12/04/21 105 Cyclobenzaprine HCl 5 Mg Tablet, 5 MG PO TID PRN for MUSCLE SPASMS, (Reported) Fluoxetine HCl 40 Mg Capsule, 40 MG PO DAILY, (Reported) Furosemide 20 Mg Tablet, 20 MG PO DAILY PRN for FLUID RETENTION, (Reported) Gabapentin 300 Mg Capsule, 300 MG PO TID, (Reported) Guaifenesin 600 Mg Tab.er.12h, 600 MG PO BID Prescribed by: BRITT VELASCO on 12/04/21 105 Hydrochlorothiazide 25 Mg Tablet, 25 MG PO DAILY, (Reported) Lidocaine 1 Each Adh..patch, 1 PATCH TD DAILY PRN for PAIN-BREAKTHROUGH, (Reported) APPLIES TO SHOULDER OR BACK Naproxen Sodium 220 Mg Tablet, 220-440 MG PO Q8H PRN for PAIN-MILD (1-4), (Reported) Prednisone 50 Mg Tab, 50 MG PO DAILY Take 1 tab for 3 days and 1/2 tab for 4 days Prescribed by: BRITT VELASCO on 12/04/21 105 Rosuvastatin Calcium 40 Mg Tablet, 40 MG PO HS, (Reported) Tiotropium [place] 1 Inh Aerp, 1 PUFF INH DAILY PRN for SHORTNESS OF BREATH, (Reported) [Potassium Cl 10%] 20MEQ/15ML SOLN, 15 ML PO DAILY PRN for TAKE WITH FUROSEMIDE, (Reported) Past Medical/Social/Family Hx Patient Social History Tobacco Use?: No Smoking Status: Never a Smoker Smokeless Tobacco Frequency: Never a User Use of E-Cig and/or Vaping dev: No Substance use?: No Alcohol Use?: No Pt stated abuse/neglect: No Immunizations Up To Date Influenza Vaccine Up-to-Date: Yes; Up-to-Date First/Initial COVID19 Vaccinat: YES Second COVID19 Vaccination Mickey: YES Tetanus Booster (TDap): Unknown Hepatitis A: No Hepatitis B: No TB Skin Test: None Current Status status: No status: No Advance Directives: No Communicates: Verbally Primary Language: Burmese Preferred Spoken Language: Burmese Is interpretation needed?: No Implanted or Applied Medical D: Other Past Medical History PMHx: Sarcoidosis with tracheostomy COPD Asthma HTN Prediabetes SurgHx: Trachostomy placement Review of Systems Constitutional: see HPI Focused Exam Lactate Level 06/04/22 23:20: Lactic Acid Level 1.32 Height, Weight, BMI Height: 5'5.00" Weight: 335lbs. 0.4oz. 151.400002aq; 57.19 BMI Method:Actual Exam Exam Patient acknowledged, consented, and participated in this virtual visit which was conducted using real time audio/video Vital Signs Date Time Temp Pulse Resp B/P (MAP) Pulse Ox O2 Delivery O2 Flow Rate FiO2 06/05/22 09:14 36.2 92 97 06/05/22 09:00 100 26 111/72 (85) 95 Nasal Cannula 3.00 Venturi Mask 28.00 06/05/22 08:00 92 22 109/79 (89) 98 Nasal Cannula 3.00 Venturi Mask 28.00 06/05/22 08:00 97 Trach Collar 28 06/05/22 08:00 36.2 06/05/22 08:00 96 Trach Collar 10.00 35 06/05/22 07:00 98 23 110/72 (85) 99 Nasal Cannula 3.00 Venturi Mask 28.00 06/05/22 07:00 92 06/05/22 06:00 98 19 106/72 (83) 96 Nasal Cannula 3.00 Venturi Mask 28.00 06/05/22 05:00 100 21 120/82 (95) 96 Nasal Cannula 3.00 Venturi Mask 28.00 06/05/22 04:00 104 21 108/69 (82) 96 Nasal Cannula 3.00 Venturi Mask 28.00 06/05/22 04:00 94 Trach Collar 28 06/05/22 03:30 105 22 81/43 (56) 92 Nasal Cannula 3.00 Venturi Mask 28.00 06/05/22 03:00 108 21 90/43 (59) 92 Nasal Cannula 3.00 Venturi Mask 28.00 06/05/22 02:45 112 20 89/54 (66) 96 Nasal Cannula 3.00 Venturi Mask 28.00 06/05/22 02:39 39.4 120 94 26 06/05/22 02:30 93 Trach Collar 28 06/05/22 02:30 110 24 85/63 (70) 95 Nasal Cannula 3.00 Venturi Mask 28.00 06/05/22 02:28 108 06/05/22 02:15 110 24 129/84 (99) 95 Nasal Cannula 3.00 Venturi Mask 28.00 06/05/22 02:04 117 24 103/76 95 Room Air 06/05/22 01:37 96 Trach Collar 26 06/05/22 01:11 98 Trach Collar 06/04/22 23:20 94 Trach Collar 2.00 06/04/22 23:20 39.4 120 112/94 (100) 94 Trach Collar 06/04/22 23:20 Nasal Cannula 2.00 I & O 06/05/22 07:00 Intake Total 130 ml Output Total 550 ml Balance -420 ml Height & Weight Height: 5'5.00" Weight: 335lbs. 0.4oz. 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
--- NOTE | 2022-06-05 11:32 | Diagnostic Imaging Report ---
PROCEDURE: CT angiography of the chest with contrast. TECHNIQUE: Multiple contiguous axial images were obtained through the chest after uneventful bolus administration of intravenous contrast. 3D reconstructed CTA MIP acquisitions were also performed. Auto Exposure Controls were utilized during the CT exam to meet ALARA standards for radiation dose reduction. DATE: June 05, 2022. COMPARISON: CT chest, abdomen and pelvis April 02, 2022. INDICATION: 61-year-old female, concern for pulmonary embolus. FINDINGS: There are linear opacities in the right and left lower lobes compatible with atelectasis. There is no identified pulmonary nodule or lung mass. There is no additional focal airspace consolidation. There is no pneumothorax. There is no pleural effusion. There is no identified pulmonary embolus. The heart is not enlarged. There is no pericardial effusion. There is no identified abnormally enlarged mediastinal, hilar, or axillary lymph node meeting CT size criteria for adenopathy. The gallbladder is surgically absent. There are multilevel degenerative changes of the spine. There is no identified acute bony abnormality. IMPRESSION: CT CHEST. 1. No identified pulmonary embolus or other acute cardiopulmonary abnormality. Dictated by: Dictated on workstation # [id number]
[2022-06-05] MEDS ORDERED: CYCLOBENZAPRINE 10 MG (FLEXERIL) TAB PO PRN (20:45)
[2022-06-05] MEDS: ROSUVASTATIN 20 MG (CRESTOR) TABLET PO SCH (21:57)
[2022-06-06] MEDS: CEFEPIME 1,000 MG/NS 50 ML IVPB IV SCH ×8 (04:45→22:40)
[2022-06-06 05:20] LABS: BASOPHILS % (AUTO) 0 % (0-10); EOSINOPHILS # (AUTO) 0.3 10^3/uL (0.0-0.3); EOSINOPHILS % (AUTO) 4 % (0-10); HEMATOCRIT 32 % (35-52); LYMPHOCYTES % (AUTO) 29 % (12-44); MEAN CORPUSCULAR HEMOGLOBIN 27 pg (25-34); MEAN CORPUSCULAR HGB CONC 31 g/dL (32-36); MEAN CORPUSCULAR VOLUME 86 fL (80-99); MEAN PLATELET VOLUME 9.9 fL (9.0-12.2); MONOCYTES # (AUTO) 0.6 10^3/uL (0.0-1.0); MONOCYTES % (AUTO) 9 % (0-12); NEUTROPHILS # (AUTO) 3.9 10^3/uL (1.8-7.8); NEUTROPHILS % (AUTO) 57 % (42-75); PLATELET COUNT 284 10^3/uL (130-400)
[2022-06-06 05:48] LABS: BILIRUBIN,TOTAL 0.2 MG/DL (0.1-1.0); CALCIUM 8.3 MG/DL (8.5-10.1); CREATININE SERUM 0.82 MG/DL (0.60-1.30); MAGNESIUM 2.1 MG/DL (1.6-2.4); POTASSIUM 3.2 MMOL/L (3.6-5.0); TOTAL PROTEIN 6.5 GM/DL (6.4-8.2)
[2022-06-06] MEDS: MAGNESIUM 1 GM/100 ML IVPB 100 ML IV SCH (06:00)
[2022-06-06] MEDS: POTASSIUM CL 10MEQ/50ML IVPB 50 ML IV SCH (06:00)
[2022-06-06] MEDS: KCL 20 MEQ TAB (K-DUR) PO SCH ×3 (06:00→08:17)
[2022-06-06] MEDS ORDERED: POTASSIUM CL 10MEQ/50ML IVPB 50 ML IV SCH (06:00)
[2022-06-06] MEDS: PANTOPRAZOLE 40 MG (PROTONIX) TAB PO SCH (06:25)
--- NOTE | 2022-06-06 06:29 | Progress Note - Hospitalist ---
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 Patient is currently much improved. Labs reviewed. Antibiotics maintained. Elevated D-dimer will require CT angiogram and I did give therapeutic dose Lovenox until that result is back. Subjective/Events-last exam Patient doing a little better Flare of sarcoidosis will require IV steroids No other pain reported Bowels are moving Review of Systems General: Fatigue, Malaise Pulmonary: Dyspnea Focused Exam Lactate Level 06/04/22 23:20: Lactic Acid Level 1.32 Objective Exam Vital Signs Vital Signs Date Time Temp Pulse Resp B/P (MAP) Pulse Ox O2 Delivery O2 Flow Rate FiO2 06/06/22 14:43 97 Trach Collar 10.00 35 06/06/22 14:00 65 131/84 (100) 06/06/22 12:48 36.8 06/06/22 04:00 23 Capillary Refill : General Appearance: No Apparent Distress, WD/WN, Chronically ill Respiratory: No Accessory Muscle Use, No Respiratory Distress, Decreased Breath Sounds, Wheezing Cardiovascular: Regular Rate, Rhythm Neurologic/Psychiatric: Alert, Oriented x3, No Motor/Sensory Deficits, Normal Mood/Affect Results/Procedures Lab Laboratory Tests 06/06/22 04:40 Patient resulted labs reviewed. Assessment/Plan Assessment and Plan Assess & Plan/Chief Complaint Assessment: Acute on chronic respiratory failure Pneumonia Tracheostomy status Sarcoidosis severe Obesity Hypertension Elevated D-dimer with no DVT on venous Doppler ultrasound and no PE on CT angiogram Plan: Supportive care Monitor closely Add IV steroids due to sarcoidosis flare ROBINA MELLO DO Jun 06, 2022 06:29
[2022-06-06] MEDS: RT-ALBUTEROL/IPRATROPIUM 3 ML (DUONEB) VIAL INH SCH ×5 (07:16→21:54)
[2022-06-06] MEDS: FLUoxetine HCL 20 MG (PROzac) CAP PO SCH (08:17)
[2022-06-06] MEDS: ENOXAPARIN 60 MG/0.6 ML (LOVENOX) SYR SC SCH ×2 (08:17→20:49)
[2022-06-06] MEDS: polyethylene glycoL POWDER 17 GM (MIRALAX) PACK PO SCH ×2 (09:06→21:00)
[2022-06-06] MEDS: SENNA W/DOCUSATE (SENOKOT S) TABLET PO SCH ×2 (09:07→21:00)
--- NOTE | 2022-06-06 09:53 | Tele-ICU Progress Note ---
Subjective Date Seen by a Provider: Jun 06, 2022 Subjective/Events-last exam This virtual visit was conducted using real time audio/video. Thank you for asking us to see this patient for respiratory insufficiency due to endstage sarcoid, pna and sepsis Recent events: increasing O2 needs. PE: VSS. O2 sat 96% on 10 LPM. HEENT: No obvious masses, adenopathy or JVD. Chest: wheezes on auscultation. CV: RRR S1 S2 No murmur or added sounds. Abd: Non-tender. Bowel sounds Y. : Unremarkable. Espinal removed . 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 No obvious focal findings. Extremities:No edema. Capillary refill < 3 seconds. Skin: unremarkable. Results: Decreased Hb 10.0, K 3.2. CXR: hyperinflated, poor quality. Duplex neg for DVT, CTAC neg for PE. Available chart/ vitals / labs / images reviewed. Video assessment done using teleICU camera, rest of exam as per RN. A/P: Respiratory insufficiency: Continue present management with O2, duonebs Monitor for increasing oxygenation needs and/or need for intubation. Critical Care: critically ill patient. Cont. abx, PPI, statin, gabriel. Replace K. Discussed with RN Jim. Asked RN to reach out to eICU if any questions or concerns later. Time spent with patient/coordination of care with other health professionals (mins): 31 Sepsis Event Evaluation Height, Weight, BMI Height: 5'5.00" Weight: 335lbs. 0.4oz. 151.355965cb; 58.18 BMI Method:Actual Focused Exam Lactate Level 06/04/22 23:20: Lactic Acid Level 1.32 Exam Exam Patient acknowledged, consented, and participated in this virtual visit which was conducted using real time audio/video Vital Signs Date Time Temp Pulse Resp B/P (MAP) Pulse Ox O2 Delivery O2 Flow Rate FiO2 06/06/22 08:00 93 110/61 (77) 97 Trach Collar 28.00 06/06/22 07:44 36.8 06/06/22 07:42 97 Trach Collar 10.00 35 06/06/22 07:16 97 Trach Collar 10.00 35 06/06/22 07:00 111 92 Trach Collar 28.00 06/06/22 07:00 89 06/06/22 06:00 88 104/63 (77) 99 Trach Collar 28.00 06/06/22 05:00 93 111/88 (96) 100 Trach Collar 28.00 06/06/22 04:00 97 23 100 Trach Collar 28.00 06/06/22 04:00 97 Trach Collar 10.00 35 06/06/22 03:00 90 21 90/56 (67) 100 Trach Collar 28.00 06/06/22 02:00 88 19 114/82 (93) 99 Trach Collar 28.00 06/06/22 01:00 94 18 94/63 (73) 100 Trach Collar 28.00 06/06/22 01:00 90 06/06/22 00:00 99 20 120/74 (89) 98 Trach Collar 28.00 06/05/22 23:59 98 Trach Collar 10.00 35 06/05/22 23:00 96 21 80/45 (57) 99 Trach Collar 28.00 06/05/22 22:00 104 18 94/60 (71) 99 Trach Collar 28.00 06/05/22 21:46 100 Trach Collar 10.00 35 06/05/22 21:00 91 21 107/66 (80) 98 Trach Collar 28.00 06/05/22 20:00 96 Trach Collar 10.00 35 06/05/22 20:00 105 21 106/68 (81) 100 Trach Collar 28.00 06/05/22 19:54 36.6 06/05/22 19:00 105 06/05/22 19:00 107 16 108/84 (92) 98 Trach Collar 28.00 06/05/22 18:53 97 Trach Collar 10.00 35 06/05/22 17:00 100 15 114/78 (90) 98 Trach Collar 28.00 06/05/22 16:01 36.8 06/05/22 16:00 107 21 104/73 (83) 96 Trach Collar 28.00 06/05/22 15:50 97 Trach Collar 28 06/05/22 15:00 108 25 128/96 (107) 97 Trach Collar 35.00 06/05/22 14:54 94 Trach Collar 10.00 35 06/05/22 14:00 96 20 97/69 (78) 100 Trach Collar 28.00 06/05/22 13:00 103 20 98/74 (82) 99 Trach Collar 28.00 06/05/22 12:56 101 06/05/22 12:00 36.4 06/05/22 12:00 97 Trach Collar 28 06/05/22 12:00 92 21 124/95 (105) 99 Trach Collar 28.00 06/05/22 11:00 94 27 114/79 (91) 97 Trach Collar 35.00 06/05/22 10:47 96 Trach Collar 10.00 35 06/05/22 10:00 93 16 103/66 (78) 99 Trach Collar 35.00 I & O 06/06/22 07:00 Intake Total 3500 ml Output Total 1275 ml Balance 2225 ml Height & Weight Height: 5'5.00" Weight: 335lbs. 0.4oz. 151.509437en; 58.18 BMI Method:Actual General Appearance: No Apparent Distress, WD/WN, Mild Distress, Obese HEENT: PERRL/EOMI, Normal ENT Inspection Neck: No JVD; Other (Tracheostomy clean and dry with normal skin surrounding) Respiratory: No Accessory Muscle Use, No Respiratory Distress; No Crackles; Wheezing Cardiovascular: No Edema, No Murmur, Tachycardia Extremity: Normal Inspection, No Calf Tenderness, No Pedal Edema Neurologic/Psychiatric: Alert, Oriented x3, No Motor/Sensory Deficits, Normal Mood/Affect, bi manager II-XII Norm as Tested Skin: Normal Color, Warm/Dry Lymphatic: No Adenopathy Results Lab Laboratory Tests 06/04/22 23:20 06/05/22 05:20 06/05/22 09:54 06/06/22 04:40 Assessment/Plan Assessment/Plan See free text. Critical Care: Critically Ill Patient NOE CORTES MD Jun 06, 2022 09:53
[2022-06-06] MEDS ORDERED: FUROSEMIDE 40 MG/4 ML INJ (LASIX) IVP ONE (12:00)
[2022-06-06] MEDS: methylPREDNISolone 40 MG/ML (Solu-MEDROL) VIAL IV SCH ×2 (12:14→20:49)
[2022-06-06] MEDS: ROSUVASTATIN 20 MG (CRESTOR) TABLET PO SCH (20:49)
[2022-06-07] MEDS: RT-ALBUTEROL/IPRATROPIUM 3 ML (DUONEB) VIAL INH SCH ×6 (02:26→22:10)
[2022-06-07] MEDS: CEFEPIME 1,000 MG/NS 50 ML IVPB IV SCH ×8 (04:53→21:16)
[2022-06-07 05:34] LABS: BASOPHILS % (AUTO) 0 % (0-10); EOSINOPHILS % (AUTO) 0 % (0-10); HEMATOCRIT 34 % (35-52); HEMOGLOBIN 10.6 g/dL (11.5-16.0); LYMPHOCYTES # (AUTO) 0.9 10^3/uL (1.0-4.0); LYMPHOCYTES % (AUTO) 14 % (12-44); MEAN CORPUSCULAR HEMOGLOBIN 27 pg (25-34); MEAN CORPUSCULAR HGB CONC 32 g/dL (32-36); MEAN CORPUSCULAR VOLUME 85 fL (80-99); MEAN PLATELET VOLUME 9.7 fL (9.0-12.2); MONOCYTES # (AUTO) 0.1 10^3/uL (0.0-1.0); MONOCYTES % (AUTO) 2 % (0-12); NEUTROPHILS # (AUTO) 5.7 10^3/uL (1.8-7.8); NEUTROPHILS % (AUTO) 83 % (42-75); PLATELET COUNT 314 10^3/uL (130-400); WHITE BLOOD COUNT 6.8 10^3/uL (4.3-11.0)
[2022-06-07 05:49] LABS: ALBUMIN 3.2 GM/DL (3.2-4.5); BILIRUBIN,TOTAL 0.2 MG/DL (0.1-1.0); CALCIUM 8.8 MG/DL (8.5-10.1); CREATININE SERUM 0.81 MG/DL (0.60-1.30); MAGNESIUM 2.2 MG/DL (1.6-2.4); PHOSPHORUS 2.6 MG/DL (2.3-4.7); POTASSIUM 4.1 MMOL/L (3.6-5.0)
--- NOTE | 2022-06-07 05:53 | Progress Note - Hospitalist ---
Subjective HPI/CC On Admission Date Seen by Provider: Jun 07, 2022 Time Seen by Provider: 09:00 Chief complaint: Respiratory failure acute on chronic HPI: This is a 61-year-old female who presented to the ER with shortness of breath and found to have pneumonia and respiratory failure superimposed on chron ic respiratory failure with tracheostomy due to sarcoidosis end-stage. Patient is currently much improved. Labs reviewed. Antibiotics maintained. Elevated D-dimer will require CT angiogram and I did give therapeutic dose Lovenox until that result is back. Subjective/Events-last exam Pt is doing pretty well Transferring to 4th floor Remains on trach collar oxygen Continues IV steroids Review of Systems General: Fatigue, Malaise Pulmonary: Dyspnea Focused Exam Lactate Level Objective Exam Vital Signs Vital Signs Date Time Temp Pulse Resp B/P (MAP) Pulse Ox O2 Delivery O2 Flow Rate FiO2 06/08/22 03:06 36.0 76 20 120/73 (89) 98 Trach Collar 10.00 06/08/22 02:13 35 Capillary Refill : General Appearance: No Apparent Distress, WD/WN, Chronically ill, Obese Respiratory: Lungs Clear, Normal Breath Sounds, Decreased Breath Sounds Cardiovascular: Regular Rate, Rhythm Neurologic/Psychiatric: Alert, Oriented x3, No Motor/Sensory Deficits, Normal Mood/Affect Results/Procedures Lab Patient resulted labs reviewed. Assessment/Plan Assessment and Plan Assess & Plan/Chief Complaint Assessment: Acute on chronic respiratory failure Pneumonia Tracheostomy status Sarcoidosis severe Obesity Hypertension Elevated D-dimer with no DVT on venous Doppler ultrasound and no PE on CT angiogram Plan: Supportive care Monitor closely Decreased but maintain IV steroids due to sarcoidosis flare Transfer to fourth floor Critical Care Critically Ill Patient RIAZROBINA HORNE Jun 07, 2022 05:53
[2022-06-07 05:55] LABS: TOTAL PROTEIN 7.2 GM/DL (6.4-8.2)
[2022-06-07] MEDS: MAGNESIUM 1 GM/100 ML IVPB 100 ML IV SCH (06:00)
[2022-06-07] MEDS: KCL 20 MEQ TAB (K-DUR) PO SCH (06:00)
[2022-06-07] MEDS: POTASSIUM CL 10MEQ/50ML IVPB 50 ML IV SCH (06:00)
[2022-06-07] MEDS: PANTOPRAZOLE 40 MG (PROTONIX) TAB PO SCH (06:16)
[2022-06-07] MEDS: polyethylene glycoL POWDER 17 GM (MIRALAX) PACK PO SCH ×2 (08:25→20:26)
[2022-06-07] MEDS: FLUoxetine HCL 20 MG (PROzac) CAP PO SCH (08:25)
[2022-06-07] MEDS: SENNA W/DOCUSATE (SENOKOT S) TABLET PO SCH ×2 (08:26→20:26)
[2022-06-07] MEDS: methylPREDNISolone 40 MG/ML (Solu-MEDROL) VIAL IV SCH ×2 (08:34→21:16)
[2022-06-07] MEDS: ENOXAPARIN 60 MG/0.6 ML (LOVENOX) SYR SC SCH ×2 (08:35→21:16)
[2022-06-07 09:40] VITALS: BP 148/82
--- NOTE | 2022-06-07 10:00 | Physical Therapy Evaluation ---
PT Evaluation-General Medical Diagnosis Admission Date Jun 05, 2022 at 01:30 Medical Diagnosis: resp. failure, pneumonia Onset Date: Jun 05, 2022 Therapy Diagnosis Therapy Diagnosis: impaired mobility Height/Weight Height (Feet): 5 Height (Inches): 5.00 Weight (Pounds): 335 Weight (Ounces): 0.4 Precautions Precautions/Isolations: Aspiration, Fall Prevention, Standard Precautions Referral Physician: Coretta Lynne DO Reason for Referral: Evaluation/Treatment Medical History Additional Medical History Past Medical History Surgeries: Gallbladder, Hysterectomy, Tracheostomy Asthma, Pneumonia, Chronic Bronchitis, COPD Currently Using CPAP: No Currently Using BIPAP: No High Cholesterol, Hypertension 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 4-Imwddobabz-vrmcujn completes the activity by him/herself with no assistance from a helper. 5-Set-up or Clean-up Assistance-helper sets up or cleans up; patient completes activity. [place] assists only prior to or following the activity. 4-Supervision or Touching Assistance-helper provides verbal cues and/or touching/steadying and/or contact guard assistance as patient completes activit y. Assistance may be provided throughout the activity or intermittently. 3-Partial/Moderate Assistance-helper does LESS THAN HALF the effort. [place] lifts, holds or supports trunk or limbs, but provides less than half the effort. 2-Substantial/Maximal Assistance-helper does MORE THAN HALF the effort. [place] lifts or holds trunk or limbs and provides more than half the effort. 6-Kwxrcbdcn-tadlpq does ALL the effort. Patient does none of the effort to complete the activity. Or, the assistance of 2 or more helpers is required for the patient to complete the activity. If activity was not attempted, code reason: 7-Patient Refused. 9-Not Applicable-not attempted and the patient did not perform the activity before the current illness, exacerbation or injury. 10-Not Attempted due to Environmental Limitations-(lack of equipment, weather restraints, etc.). 88-Not Attempted due to Medical Conditions or Safety Concerns. Bed Mobility: 6 Transfers (B,C,W/C): 6 Gait: 6 Indoor Mobility (Ambulation): Independent Prior Devices Use: Walker PT Evaluation-Current Subjective Patient sitting EOB pre tx, agrees to PT, has no complaints of pain. Patient is currently performing her trach care and is not open to try to ambulate at this time. Pt/Family Goals to be independent at home Objective Patient Orientation: Person, Place, Situation Attachments: Oxygen (trach) ROM/Strength ROM Lower Extremities WNL Strength Lower Extremities grossly 5/5 BLE Sensory Hearing: Functional Sensation Right Lower Extremit: Intact Sensation Left Lower Extremity: Intact Transfers Roll Left to Right (QC): 6 Sit to Lying (QC): 6 Lying to Sitting/Side of Bed(Q: 6 Sit to Stand (QC): 4 SBA for sit to stand Balance Sitting Static: Normal Sitting Dynamic: Normal Standing Static: Normal Treatment BLE seated exercises x20 (AP, LAQ) Assessment/Needs Patient sitting EOB post tx with nurse call, phone, tray, continuing to perform her trach care. Patient has impaired mobility, SBA for standing. Rehab Potential: Fair PT Malter Operator Goals Malter Operator Goals PT Malter Operator Goals Time Frame: Jun 14, 2022 Roll Left & Right (QC): 6 Sit to Lying (QC): 6 Lying-Sitting on Side/Bed(QC): 6 Sit to Stand (QC): 6 Chair/Vqa-jx-Tiuxz Xfer(QC): 6 Walk 10 feet (QC): 6 Walk 50ft with 2 Turns (QC): 6 PT Plan Problem List Problem List: Activity Tolerance, Functional Strength, Safety, Balance, Gait, Transfer, Bed Mobility, ROM Treatment/Plan Treatment Plan: Continue Plan of Care Treatment Plan: Bed Mobility, Education, Functional Activity Ambar, Functional Strength, Gait, Safety, Therapeutic Exercise, Transfers Treatment Duration: Jun 14, 2022 Frequency: 6 times per week Estimated Hrs Per Day: .25 hour per day Patient and/or Family Agrees t: Yes Safety Risks/Education Patient Education: Correct Positioning, Safety Issues Teaching Recipient: Patient Teaching Methods: Demonstration, Discussion Response to Teaching: Reinforcement Needed Discharge Recommendations Plan Patient will perform bed mobility and transfer training, balance and endurance training ,functional strengthening, gait training, and education, to improve functional mobility and independence at home. Therapy Discharge Recommendati: Home & Family, Post Acute PT Time Time In: 915 Time Out: 925 Total Billed Treatment Time: 10 Total Billed Treatment 1 visit BARBARA ROGEL PT Jun 07, 2022 10:00
--- NOTE | 2022-06-07 10:59 | Occ Therapy Progress Note ---
Therapy Progress Note OT orders received and chart reviewed. Upon arrival, pt was standing up fixing the chair to sit up in the recliner. She stated that she had just taken herself to the bathroom as well. Pt reported that she does not feel like she needs OT at this time as she is at baseline for ADLs and has a self-direct caregiver that comes and helps as needed. OT will d/c at this time. 1 visit Shannon Avila OT Jun 07, 2022 10:59
[2022-06-07 11:29] VITALS: BP 144/73
[2022-06-07] MEDS ORDERED: ERGO1250 PO (12:37)
[2022-06-07] MEDS ORDERED: DOCU100C37 PO (12:37)
[2022-06-07] MEDS ORDERED: OXYC5TAB PO (12:37)
[2022-06-07] MEDS ORDERED: POLY238P32 PO (12:37)
[2022-06-07] MEDS ORDERED: TIOT18CA2 PO (12:38)
[2022-06-07] MEDS ORDERED: MULT-610 PO (12:41)
[2022-06-07] MEDS ORDERED: OMEP40CA6 PO (12:41)
[2022-06-07 16:00] VITALS: BP 114/77
[2022-06-07 19:42] VITALS: BP 125/75
[2022-06-07] MEDS: ROSUVASTATIN 20 MG (CRESTOR) TABLET PO SCH (21:17)
[2022-06-07 23:12] VITALS: BP 130/78
[2022-06-08] MEDS: RT-ALBUTEROL/IPRATROPIUM 3 ML (DUONEB) VIAL INH SCH ×2 (02:13→07:00)
[2022-06-08 03:06] VITALS: BP 120/73
[2022-06-08] MEDS: CEFEPIME 1,000 MG/NS 50 ML IVPB IV SCH ×6 (04:21→16:58)
[2022-06-08] MEDS: PANTOPRAZOLE 40 MG (PROTONIX) TAB PO SCH (05:08)
[2022-06-08 05:54] LABS: BASOPHILS % (AUTO) 0 % (0-10); EOSINOPHILS % (AUTO) 0 % (0-10); HEMATOCRIT 35 % (35-52); HEMOGLOBIN 11.2 g/dL (11.5-16.0); LYMPHOCYTES % (AUTO) 10 % (12-44); MEAN CORPUSCULAR HEMOGLOBIN 27 pg (25-34); MEAN CORPUSCULAR HGB CONC 32 g/dL (32-36); MEAN CORPUSCULAR VOLUME 84 fL (80-99); MEAN PLATELET VOLUME 10.1 fL (9.0-12.2); MONOCYTES # (AUTO) 0.4 10^3/uL (0.0-1.0); MONOCYTES % (AUTO) 4 % (0-12); NEUTROPHILS # (AUTO) 8.7 10^3/uL (1.8-7.8); NEUTROPHILS % (AUTO) 85 % (42-75); PLATELET COUNT 411 10^3/uL (130-400); WHITE BLOOD COUNT 10.2 10^3/uL (4.3-11.0)
[2022-06-08 06:13] LABS: ALBUMIN 3.4 GM/DL (3.2-4.5)
[2022-06-08 06:15] LABS: CALCIUM 8.8 MG/DL (8.5-10.1)
[2022-06-08 06:16] LABS: TOTAL PROTEIN 7.5 GM/DL (6.4-8.2)
[2022-06-08 06:18] LABS: BILIRUBIN,TOTAL 0.2 MG/DL (0.1-1.0)
[2022-06-08 06:20] LABS: CREATININE SERUM 0.76 MG/DL (0.60-1.30)
[2022-06-08 06:23] LABS: MAGNESIUM 2.4 MG/DL (1.6-2.4)
[2022-06-08 07:36] VITALS: BP 123/78
[2022-06-08] MEDS ORDERED: PRED10TA22 PO (08:44)
[2022-06-08] MEDS ORDERED: FLUO20CA48 PO (08:44)
[2022-06-08] MEDS ORDERED: CEFD300C3 PO (08:44)
--- NOTE | 2022-06-08 08:44 | Discharge Summary ---
Discharge Summary Hospital Course Was the Problem List Reviewed?: Yes Problems/Dx: (1) Right lower lobe pneumonia Status: Acute Qualifiers: Qualified Codes: J18.9 - Pneumonia, unspecified organism (2) Elevated d-dimer Status: Acute (3) COPD exacerbation Status: Acute (4) Tracheostomy dependent Status: Chronic (5) HTN (hypertension) Status: Chronic (6) Sarcoidosis of lung Status: Chronic Hospital Course Date of Admission: Jun 05, 2022 at 01:30 Admission Diagnosis : Family Physician/Provider: Dorcas Aaron MD Date of Discharge: 06/08/22 Discharge Diagnosis: [ ] Hospital Course: Pt had an uneventful 4 day hospital course after she was admitted for sepsis with pneumonia, exacerbation of sarcoid, COPD, obesity hypoventilation syndrome on trach. She was maintained on Cefepime and IV steroids. Overall she had no decomposition during hospital course. She improved and was ready for discharge. Labs and Pending Lab Test: Laboratory Tests 06/08/22 05:44: White Blood Count 10.2, Red Blood Count 4.13, Hemoglobin 11.2L, Hematocrit 35, Mean Corpuscular Volume 84, Mean Corpuscular Hemoglobin 27, Mean Corpuscular Hemoglobin Concent 32, Red Cell Distribution Width 15.1H, Platelet Count 411H, Mean Platelet Volume 10.1, Immature Granulocyte % (Auto) 2, Neutrophils (%) (Auto) 85H, Lymphocytes (%) (Auto) 10L, Monocytes (%) (Auto) 4, Eosinophils (%) (Auto) 0, Basophils (%) (Auto) 0, Neutrophils # (Auto) 8.7H, Lymphocytes # (Auto) 1.0, Monocytes # (Auto) 0.4, Eosinophils # (Auto) 0.0, Basophils # (Auto) 0.0, Immature Granulocyte # (Auto) 0.2H, Sodium Level 140, Potassium Level 4.0, Chloride Level 106, Carbon Dioxide Level 24, Anion Gap 10, Blood Urea Nitrogen 14, Creatinine 0.76, Estimat Glomerular Filtration Rate 90, BUN/Creatinine Ratio 18, Glucose Level 147H, Calcium Level 8.8, Corrected Calcium 9.3, Magnesium Level 2.4, Total Bilirubin 0.2, Aspartate Amino Transf (AST/SGOT) 23, Alanine Aminotransferase (ALT/SGPT) 19, Alkaline Phosphatase 92, Total Protein 7.5, A lbumin 3.4 Microbiology 06/05/22 MRSA Screen - Final, Complete MRSA not isolated 06/04/22 Urine Culture - Preliminary, Resulted 3 or more isolates Probable E.coli 06/04/22 Blood Culture - Preliminary, Resulted No growth Home Meds Active Reported Multivitamins with Iron (Multivitamin W/Iron, Minerals) 1 Each Tab.chew 1 Each PO DAILY Omeprazole 40 Mg Capsule.dr 40 Mg PO DAILY PRN Spiriva (Tiotropium [place]) 18 Mcg Aerp 1 Puff PO DAILY PRN Vitamin D2 (Ergocalciferol (Vitamin D2)) 1,250 Mcg (58944 Unit) Capsule 1,250 Mcg PO ONCE WEEKLY TAKES ON TUESDAY [id number] (Polyethylene Glycol 3350) 17 Gram/Dose Powder 17 Gm PO DAILY PRN Docusate Sodium 100 Mg Capsule 100 Mg PO DAILY PRN Oxycodone HCl 5 Mg Tablet 5 Mg PO Q4H PRN FILLED 06-01-2022 #30/5 DAY SUPPLY Aleve (Naproxen Sodium) 220 Mg Tablet 220 Mg PO Q8H PRN Furosemide 20 Mg Tablet 20 Mg PO DAILY PRN Cyclobenzaprine HCl 5 Mg Tablet 5 Mg PO TID PRN Ventolin Hfa (Albuterol Sulfate) 90 Mcg Hfa.aer.ad 2 Puff INH Q6H PRN Albuterol Sulfate 2.5 Mg/3 Ml (0.083 %) Vial.neb 1 Vial PO Q4H PRN Lidocaine 5% Patch (Lidocaine) 1 Each Adh..patch 1 Patch TD DAILY PRN APPLIES TO SHOULDER OR BACK Rosuvastatin Calcium 40 Mg Tablet 40 Mg PO DAILY Hydrochlorothiazide 25 Mg Tablet 25 Mg PO DAILY Assessment/Pt Instructions PCP in 1 week Discharge Planning: <30 minutes discharge planning Discharge Instructions Discharge Diet: No Restrictions Discharge Physical Examination Vital Signs Vital Signs Date Time Temp Pulse Resp B/P (MAP) Pulse Ox O2 Delivery O2 Flow Rate FiO2 06/08/22 07:36 36.0 66 20 123/78 (93) 99 Trach Collar 10.00 06/08/22 02:13 35 General Appearance: Chronically ill, Obese Respiratory: No Accessory Muscle Use, No Respiratory Distress, Decreased Breath Sounds Cardiovascular: Regular Rate, Rhythm (The) Neurologic/Psychiatric: Alert, Oriented x3 Allergies: Coded Allergies: No Known Drug Allergies (Unverified , 06/18/17) Discharge Summary Date of Admission Jun 05, 2022 at 01:30 Date of Discharge Discharge Date: Jun 08, 2022 Admission Diagnosis Assessment: Acute on chronic respiratory failure Pneumonia Tracheostomy status Sarcoidosis severe Obesity Hypertension Elevated D-dimer with no DVT on venous Doppler ultrasound and no PE on CT angiogram Plan: Supportive care Monitor closely Discharge Diagnosis Assessment: Acute on chronic respiratory failure Pneumonia Tracheostomy status Sarcoidosis severe Obesity Hypertension Elevated D-dimer with no DVT on venous Doppler ultrasound and no PE on CT a ngiogram Plan: Supportive care Monitor closely Decreased but maintain IV steroids due to sarcoidosis flare Transfer to fourth floor ROBINA MELLO DO Jun 08, 2022 08:44
--- NOTE | 2022-06-08 08:46 | Physical Therapy Progress Note ---
Therapy Progress Note Patient is up independently and declined continued PT. PT to dismiss patient from services at this time 1 visit/DC NAZARIO ELIAS PT Jun 08, 2022 08:46
[2022-06-08] MEDS: methylPREDNISolone 40 MG/ML (Solu-MEDROL) VIAL IV SCH (09:32)
[2022-06-08] MEDS: ENOXAPARIN 60 MG/0.6 ML (LOVENOX) SYR SC SCH (09:45)
[2022-06-08] MEDS: polyethylene glycoL POWDER 17 GM (MIRALAX) PACK PO SCH (09:46)
[2022-06-08] MEDS: FLUoxetine HCL 20 MG (PROzac) CAP PO SCH (09:46)
[2022-06-08] MEDS: SENNA W/DOCUSATE (SENOKOT S) TABLET PO SCH (09:46)
[2022-06-08 11:45] VITALS: BP 135/76
[2022-06-08 16:00] VITALS: BP 121/72
[2022-06-08 17:30] VITALS: BP 121/72
== END 2022-06-08 17:30 | disposition home or self-care (01) | DRG 871 ==
LOC: EDUNIT# 23:19 → ER 23:20 → ICU 06-05 01:30 → 4TH 06-07 09:13
PROVIDERS: ADMIT Internal Medicine; ATTEND Internal Medicine
DX: A41.9 Sepsis, unspecified organism (principal); J18.9 Pneumonia, unspecified organism; J96.20 Acute and chronic respiratory failure, unspecified whether with hypoxia or hypercapnia; J44.1 Chronic obstructive pulmonary disease with (acute) exacerbation; J44.0 Chronic obstructive pulmonary disease with (acute) lower respiratory infection; E66.2 Morbid (severe) obesity with alveolar hypoventilation; Z68.43 Body mass index [BMI] 50.0-59.9, adult; D86.0 Sarcoidosis of lung; Z93.0 Tracheostomy status; I10 Essential (primary) hypertension; E78.00 Pure hypercholesterolemia, unspecified; F41.9 Anxiety disorder, unspecified; F32.A Depression, unspecified; Z92.21 Personal history of antineoplastic chemotherapy; Z92.3 Personal history of irradiation; Z85.42 Personal history of malignant neoplasm of other parts of uterus; Z85.048 Personal history of other malignant neoplasm of rectum, rectosigmoid junction, and anus; E87.6 Hypokalemia; Z20.822 Contact with and (suspected) exposure to COVID-19
CPT/HCPCS: 36415; 71045; 71275; 80048; 80053; 81000; 83605; 83735; 84100; 84145; 85007; 85025; 85027; 85379; 85610; 85730; 86141; 87040; 87081; 87088; 87636; 93970; 94640; 94760

== ENCOUNTER 2022-07-14 05:36 | Outpatient (CLI) | payer MEDICARE, MEDICAID ==
[~2022-07-14] VITALS: Ht 165.1 cm; Wt 148.6 kg
[~2022-07-14 05:36] MED LIST changes: +DOCU100C37 PO; +ERGO1250 PO; +FLUO20CA48 PO; +MULT-610 PO; +OMEP40CA6 PO; +OXYC5TAB PO; +POLY238P32 PO; +TIOT18CA2 PO
== END 2022-07-14 11:45 | disposition home or self-care (01) ==
LOC: PREOP 05:36
PROVIDERS: ATTEND Surgery
DX: Z01.818 Encounter for other preprocedural examination (principal); C48.2 Malignant neoplasm of peritoneum, unspecified

== ENCOUNTER 2022-07-16 12:40 | Day surgery (SDC) | payer MEDICARE, MEDICAID ==
[~2022-07-16] VITALS: Ht 165 cm; Wt 148.6 kg
[2022-07-16] VITALS (7 sets, daily range): BP systolic 121–130; BP diastolic 73–85
[2022-07-16] MEDS ORDERED: LACTATED RINGERS 1,000 ML IV PRN (13:30)
[2022-07-16] MEDS ORDERED: ceFAZolin INJECTION 2,000 MG in NS (IVPB) 50 ML IV ONE (13:30)
[2022-07-16] MEDS ORDERED: 0.9% SODIUM CHLORIDE PF INJ 20 ML VIAL ONE (13:55)
[2022-07-16] MEDS ORDERED: HEParin (CENTRAL IV FLUSH) 500 UNIT/5 ML SYR ONE (13:55)
[2022-07-16] MEDS ORDERED: LIDOCAINE 1% INJ 20 ML VIAL ONE (13:55)
[2022-07-16] MEDS ORDERED: fentaNYL INJ 100 MCG/2 ML AMP ONE (14:10)
[2022-07-16] MEDS ORDERED: PROPOFOL INJECTION 50 ML IV ONE (14:10)
[2022-07-16] MEDS ORDERED: MIDAZOLAM 2 MG/2 ML (VERSED) VIAL ONE (14:11)
[2022-07-16] MEDS ORDERED: KETAMINE 50 MG/5 ML SYRINGE ONE (14:11)
--- NOTE | 2022-07-16 15:54 | Progress Note-Pre Operative ---
Pre-Operative Progress Note Date of Available H&P: Jul 13, 2022 Date H&P Reviewed: Jul 16, 2022 Time H&P Reviewed: 15:54 History & Physical: H&P Reviewed, Patient Examed, No changes noted Pre-Operative Diagnosis: Peritoneal CA, Venous insufficiency BRENNEN HERCULES DO Jul 16, 2022 15:54
--- NOTE | 2022-07-16 16:45 | Progress Note-Post Operative ---
Post-Operative Progess Note Surgeon (s)/Ammonium Nitrate Neutralizer (s) Surgeon BRENNEN HERCULES DO Ammonium Nitrate Neutralizer: Aurelia Medley Pre-Operative Diagnosis Peritoneal CA, Venous insufficiency Post-Operative Diagnosis same Procedure & Operative Findings Date of Procedure 07/16/22 Procedure Performed/Findings PROCEDURE: The patient was taken to the operating suite, was prepped and draped in the sterile fashion. A surgical pause was performed. Local anesthetic was infiltrated at the clavicle and along the tract to the right anterior chest, where more local was placed so the pocket could be created. Using an 18 gauge finder needle with negative inspiration the left subclavian vein was accessed on the first attempt and dark nonpulsatile blood was withdrawn. The wire was inserted and fluoroscopy assured proper placement. The needle was removed. The regular wire was inserted and fluoroscopy assured proper placement. The wire was then secured. A #11 blade scalpel was used to make an incision over the right chest and along guidewire. Cautery was used to dissect down close to the pectoral fascia. A 3-0 Prolene stitch was placed to be able to suture the port in place. A pocket was created with blunt dissection. The dilator sheath was then advanced over the wire under fluoroscopy and the dilator and wire were removed. The [place] catheter was inserted through the sheath and the sheath was then removed. The [place] wire was removed. The catheter was then tunneled to the left chest pocket. Fluoroscopy was used to cut to length and this was then attached to the port which was then placed within the pocket. The port was then accessed without difficulty. It was then flushed with saline and then heparin. Sutured the port with the 3-0 Prolent and then the subcutaneous tissues were reapproximated using 3-0 Vicryl. Finally the skin was closed with 4-0 undyed monocryl, 3 interrupted sutures. The areas were then washed and dried. Skin Affix was placed over incision and the insertion point of the needle. The patient tolerated the procedure well without complication and was taken to recovery room in stable condition. Anesthesia Type IV sedation by RELATIONS MANAGER Estimated Blood Loss Estimated blood loss (mL): scant Specimens/Packing Specimens Removed none BRENNEN HERCULES DO Jul 16, 2022 16:45
--- NOTE | 2022-07-16 16:47 | Discharge Inst-Surgical ---
Discharge Inst-Surgical Depart Medication/Instructions New, Converted or Re-Newed RX: Other (use home meds) Patient Instructions Follow up Appt: Make appointment for 1 week. [phone] Instructions: May shower in 24 hours, no tub bath or soaking. Use incentive spirometer at home as directed. No Smoking Skin/Wound Care: May remove bandages in am. You need to leave the Dermabond on incision it will fall off on it's own. Symptoms to Report: Appetite Changes, Extremity Discoloration, Numbness/Tingling, Swelling Increased, Bleeding Excessive, Eyesight Changes, Pain Increased, Urine Color Change, Constipation(Persistent), Fever over 101 degree F, Pain/Pressure in chest, Urinating Difficulty, Cough Up/Vomit Blood, Heart Beat Irreg/Pounding, P ain/Pressure in jaw, Cramps in feet or legs, Lightheadedness, Pain/Pressure in shoulder, Diarrhea(Persistent), Memory Changes Suddenly, Questions/Concerns, Weight gain consecutive days, Dizziness/Fainting, Nausea/Vomiting, Shortness of Breath, Weight gain over 2 pounds If questions or concerns contact your physician Or seek help at emergency department. Activity Activity as Tolerated: Yes Activity Instructions: Avoid Stress to Incision Driving Instructions: No Driving/Refer to Dr. Quiroga Discharge Diet: No Restrictions Diet After 24 Hours: Clear Liquid if Nauseous If Any Problems/Questions/Issu: Contact Your Physician, Go to Emergency Room Skin/Wound Care Infection Signs and Symptoms: Increased Redness, Foul Odor of Wound, Increased Drainage, Skin Itchy or Has a Rash, Increased Swelling, Temperature Above 101 F Bathing Instructions: Shower Stitches/[place]/Dermabond Dis: BRENNEN Guzman DO Jul 16, 2022 16:46
[2022-07-16] MEDS ORDERED: morphine INJ 10 MG/ML 1ML (SYR OR VIAL) IVP ONE (17:00)
[2022-07-16] MEDS ORDERED: ONDANSETRON 4 MG/2 ML (SDV) Z0FRAN IVP PRN (17:00)
--- NOTE | 2022-07-16 17:05 | Anesthesia-General Post-Op ---
MAC Patient Condition Mental Status/LOC: Same as Preop Cardiovascular: Satisfactory Nausea/Vomiting: Absent Respiratory: Satisfactory Pain: Controlled Complications: Absent Post Op Complications Complications None Follow Up Care/Instructions Patient Instructions None needed. Anesthesiology Discharge Order Discharge Order Patient is doing well, no complaints, stable vital signs, no apparent adverse anesthesia problems. No complications reported per nursing. AYANNA WELLS CRNA Jul 16, 2022 17:05
--- NOTE | 2022-07-16 17:32 | Diagnostic Imaging Report ---
Reason for exam: Port placement. Comparison: 06/05/2022. Technique: 2 intraoperative fluoroscopic images of the chest. Fluoroscopic Time: 6.4 seconds Findings/ Impression: Intraoperative fluoroscopic images were obtained during port placement. Dictated by: Dictated on workstation # [id number]
== END 2022-07-16 18:15 | disposition home or self-care (01) ==
LOC: SDC 12:40
PROVIDERS: ATTEND Surgery
DX: C54.1 Malignant neoplasm of endometrium (principal); C48.2 Malignant neoplasm of peritoneum, unspecified; I87.2 Venous insufficiency (chronic) (peripheral); Z87.891 Personal history of nicotine dependence; E66.01 Morbid (severe) obesity due to excess calories; Z85.048 Personal history of other malignant neoplasm of rectum, rectosigmoid junction, and anus; Z93.0 Tracheostomy status; Z68.43 Body mass index [BMI] 50.0-59.9, adult
CPT/HCPCS: 36561; 76000; 87081; C1788

== ENCOUNTER → 2022-07-21 | Outpatient (CLI) | payer MEDICARE, MEDICAID ==
[~2022-07-21] VITALS: Ht 165 cm; Wt 148.6 kg
--- NOTE | 2022-07-21 13:06 | Diagnostic Imaging Report ---
HISTORY: Port, mechanical complication of device. COMPARISON: CT chest from 06/05/2022. Chest x-ray from 06/04/2022. TECHNIQUE: Two views of the chest. FINDINGS: The tracheostomy tube is about 5.5 cm above the kimmie. The left Port-A-Cath tip projects over the mid SVC. The cardiac silhouette is stable in size. Linear opacity in the left midlung likely represents atelectasis. There is no pleural effusion or pneumothorax. IMPRESSION: 1. Left Port-A-Cath with the tip at the mid SVC. No acute abnormality is seen. Dictated by: Dictated on workstation # [id number]
[2022-07-21 13:35] VITALS: BP 0/0
== END ==
LOC: SDC 12:27
PROVIDERS: ATTEND Surgery
DX: T85.898D Other specified complication of other internal prosthetic devices, implants and grafts, subsequent encounter (principal); Z95.828 Presence of other vascular implants and grafts
CPT/HCPCS: 71046; 96523

== ENCOUNTER 2022-12-07 19:23 | Inpatient (IN) | payer MEDICARE, MEDICAID ==
[~2022-12-07] VITALS: Ht 165 cm; Wt 134.8 kg
[~2022-12-07 19:23] MED LIST changes: +DIPH-1122 PO; -DIPH25CA48 PO; -POTA10CA43 PO; +POTA10CA44 PO
--- NOTE | 2022-12-07 19:39 | ED Abdominal Pain ---
General Stated Complaint: BACK PAIN Source of Information: Patient, EMS History of Present Illness Date Seen by Provider: December 07, 2022 Time Seen by Provider: 19:27 Initial Comments Patient is a 62-year-old female history of endometrial cancer, sarcoidosis with a tracheostomy presents to the emergency room with a chief complaint of epigastric, right upper quadrant and right flank pain. She states it has been going on for couple of days. Her urine has been very "dark". She has had nausea and vomiting with decreased appetite. No diarrhea, black or bloody stools. (cannot remember last BM). No blood in her vomit. She has had prior hysterectomy and cholecystectomy. Still has her appendix. No fevers or chills. No URI symptoms. EMS started fluids but did not give any pain meds. She currently rates her pain at a "10". She is mildly nauseated currently. No history of kidney stone. Scheduled to start chemotherapy December 15. Timing/Duration: 2-3 Days Severity/Quality: Severe, Aching Location: RUQ, Epigastric, Flank (right) Radiation: Back Activities at Onset: None Modifying Factors: Worsens With Palpation Associated Symptoms: Nausea/Vomiting Allergies and Home Medications Allergies Coded Allergies: No Known Drug Allergies (Unverified , 07/16/22) Patient Home Medication List Home Medication List Reviewed: Yes Albuterol Sulfate (Albuterol Sulfate) 2.5 Mg/3 Ml (0.083 %) Vial.neb, 1 VIAL PO Q6H PRN for SHORTNESS OF BREATH, (Reported) Entered as Reported by: MIRANDA CRISTOBAL on 11/07/20 1001 Last Action: Reviewed Albuterol Sulfate (Ventolin Hfa) 90 Mcg Hfa.aer.ad, 2 PUFF INH Q6H PRN for SHORTNESS OF BREATH, (Reported) Entered as Reported by: MIRANDA CRISTOBAL on 12/02/21 1003 Last Action: Reviewed Cyclobenzaprine HCl (Cyclobenzaprine HCl) 5 Mg Tablet, 5 MG PO TID PRN for MUSCLE SPASMS, (Reported) Entered as Reported by: MIRANDA CRISTOBAL on 12/02/21 100 Last Action: Reviewed Furosemide (Furosemide) 20 Mg Tablet, 20 MG PO DAILY PRN for FLUID RETENTION, (Reported) Entered as Reported by: MIRANDA CRISTOBAL on 12/02/21 1003 Last Action: Reviewed Hydrochlorothiazide (Hydrochlorothiazide) 25 Mg Tablet, 25 MG PO DAILY, (Reporte d) Entered as Reported by: VIKKI CHOI on 06/19/17 1130 Last Action: Reviewed Polyethylene Glycol 3350 ([id number]) 17 Gram/Dose Powder, 17 GM PO DAILY PRN for CONSTIPATION-1ST LINE, (Reported) Entered as Reported by: MEY CHILDRESS on 06/07/22 1237 Last Action: Reviewed Rosuvastatin Calcium (Rosuvastatin Calcium) 40 Mg Tablet, 40 MG PO DAILY, (Reported) Entered as Reported by: SHARIFA GONZÁLES on 09/15/20 1251 Last Action: Reviewed Sennosides (Ex-Lax) 15 Mg Tablet, 15-30 MG PO BID PRN for CONSTIPATION-5TH LINE, (Reported) Entered as Reported by: MIRANDA CRISTOBAL on 12/08/22 112 Last Action: Reviewed Tiotropium [place] (Spiriva) 18 Mcg Aerp, 1 PUFF PO DAILY PRN for SHORTNESS OF BREATH, (Reported) Entered as Reported by: MEY CHILDRESS on 06/07/22 1238 Last Action: Reviewed [Potassium Cl Liquid] 20MEQ/15ML SOLUTION, 15 ML PO DAILY, (Reported) Entered as Reported by: MIRANDA CRISTOBAL on 12/08/221126 Last Action: Reviewed Discontinued Medications Docusate Sodium (Docusate Sodium) 100 Mg Capsule, 100 MG PO DAILY PRN for CONSTIPATION-1ST LINE, (Reported) Discontinued Reason: No Longer Taking Entered as Reported by: MEY CHILDRESS on 06/07/22 1237 Last Action: Discontinued Ergocalciferol (Vitamin D2) (Vitamin D2) 1,250 Mcg (56195 Unit) Capsule, 1,250 MCG PO ONCE WEEKLY, (Reported) Discontinued Reason: No Longer Taking Entered as Reported by: MEY CHILDRESS on 06/07/22 1237 Last Action: Discontinued Fluoxetine HCl (Fluoxetine HCl) 20 Mg Capsule, 40 MG PO DAILY Discontinued Reason: No Longer Taking Prescribed by: ROBINA MELLO on 06/08/22 0899 Last Action: Discontinued Lidocaine (Lidocaine 5% Patch) 1 Each Adh..patch, 1 PATCH TD DAILY PRN for PAIN- BREAKTHROUGH, (Reported) Discontinued Reason: No Longer Taking Entered as Reported by: MIRANDA CRISTOBAL on 11/07/20 1001 Last Action: Discontinued Multivitamin W/Iron, Minerals (Multivitamins with Iron) 1 Each Tab.chew, 1 EACH PO DAILY, (Reported) Discontinued Reason: No Longer Taking Entered as Reported by: MEY CHILDRESS on 06/07/22 1241 Last Action: Discontinued Naproxen Sodium (Aleve) 220 Mg Tablet, 220 MG PO Q8H PRN for PAIN-MILD (1-4), (Reported) Discontinued Reason: No Longer Taking Entered as Reported by: MIRANDA CRISTOBAL on 12/02/21 1003 Last Action: Discontinued Omeprazole (Omeprazole) 40 Mg Capsule.dr, 40 MG PO DAILY PRN for ACID REFLUX, (Reported) Discontinued Reason: No Longer Taking Entered as Reported by: MEY CHILDRESS on 06/07/22 1241 Last Action: Discontinued Oxycodone HCl (Oxycodone HCl) 5 Mg Tablet, 5 MG PO Q4H PRN for PAIN-SEVERE (8- 10), (Reported) Discontinued Reason: No Longer Taking Entered as Reported by: MEY CHILDRESS on 06/07/22 1237 Last Action: Discontinued Review of Systems Review of Systems Constitutional: see HPI EENTM: No Symptoms Reported Respiratory: No Symptoms Reported Cardiovascular: No Symptoms Reported Gastrointestinal: Abdominal Pain, Constipated ((unable to remember last BM)), Nausea, Poor Appetite, Vomiting Genitourinary: Other (dark urine) Musculoskeletal: back pain (right flank) Skin: no symptoms reported All Other Systems Reviewed Negative Unless Noted: Yes Past Dnsovyc-Eovgdi-Thefen Hx Immunizations Up To Date Tetanus Booster (TDap): Unknown PED Vaccines UTD: Yes First/Initial COVID19 Vaccinat: 2020 Second COVID19 Vaccination Mickey: 2020 Third COVID19 Vaccination Date: 12/2021 Seasonal Allergies Seasonal Allergies: No Past Medical History Surgery/Hospitalization HX: HYSTERECTOMY/CHOLECYSTECTOMY/TRACHEOSTOMY/PNUMONIA/SEPSIS Surgeries: Yes (PORT RIGHT CHEST/REMOVED; ABSCESS I&D LEFT AXILLA; PERMANENT TRACHEOSTOMY) Gallbladder, Hysterectomy, Tracheostomy Respiratory: Yes (PT HAS TRACH D/T SARCOIDOSIS, WEAR OXYGEN AT HOME 3L) Asthma, Pneumonia, Chronic Bronchitis, COPD Currently Using CPAP: No Currently Using BIPAP: No Cardiac: Yes High Cholesterol, Hypertension Neurological: No Female Reproductive Disorders: Denies 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, 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 Genitourinary: No Gastrointestinal: Yes (hepatitis C treated with Harvoni in [id number]; ANAL CANCER--2011) Gastroesophageal Reflux, Hepatitis, Gall Bladder Disease Musculoskeletal: Yes (SARCOIDOSIS, CARPAL TUNNEL BILAT) Arthritis Endocrine: Yes ("BORDERLINE DIABETIC"; MORBID OBESITY) HEENT: Yes (PERMANENT TRACH; EDENTULOUS) Loss of Vision: Denies Hearing Impairment: Denies Cancer: Yes (RECTAL/ANAL CANCER IN 2011-NO SURGERY--TREATED WITH CHEMO + RADIATION) Rectal, Ovarian, Uterine Did You Recieve Any Treatments: Yes What Type of Treatment Did You: Chemotherapy, Radiation, Surgical Intervention Psychosocial: Yes Anxiety, Depression Integumentary: No Blood Disorders: No Adverse Reaction/Blood Tranf: No Family Medical History Patient reports no known family medical history. Hypertension, Lung Disease Physical Exam Vital Signs Vital Signs - First Documented 12/07/22 19:30 Temp 36.0 Pulse 122 Resp 18 B/P (MAP) 119/84 (96) Pulse Ox 94 Capillary Refill : Height/Weight/BMI Height: 5'5.00" Weight: 335lbs. 0.4oz. 151.908482tx; 54.58 BMI Method:Actual General Appearance: no apparent distress, obese HEENT: PERRL/EOMI Neck: other (tracheostomy in place) Respiratory: lungs clear, normal breath sounds, no respiratory distress, no accessory muscle use Cardiovascular: regular rate, rhythm, tachycardia (132), other (infusaport left chest) Gastrointestinal: abnormal bowel sounds (hypoactive), guarding, tenderness (epigastrum; RUQ; +CVA tenderness) Back: CVA tenderness (R) Neurologic/Psychiatric: alert, normal mood/affect, oriented x 3 Skin: normal color, warm/dry Focused Exam Lactate Level 12/07/22 21:43: Lactic Acid Level 0.82 Lactic Acid Level Laboratory Tests Test 12/07/22 21:43 Lactic Acid Level 0.82 MMOL/L (0.50-2.00) Progress/Results/Core Measures Results/Orders Lab Results Laboratory Tests Test 12/07/22 19:39 12/07/22 20:00 12/07/22 21:43 Range/Units White Blood Count 13.8 H 4.3-11.0 10^3/uL Red Blood Count 4.91 3.80-5.11 10^6/uL Hemoglobin 12.6 11.5-16.0 g/dL Hematocrit 41 35-52 % Mean Corpuscular Volume 83 80-99 fL Mean Corpuscular Hemoglobin 26 25-34 pg Mean Corpuscular Hemoglobin Concent 31 L 32-36 g/dL Red Cell Distribution Width 14.5 10.0-14.5 % Platelet Count 315 130-400 10^3/uL Mean Platelet Volume 9.7 9.0-12.2 fL Immature Granulocyte % (Auto) 0 % Neutrophils (%) (Auto) 80 H 42-75 % Lymphocytes (%) (Auto) 14 12-44 % Monocytes (%) (Auto) 5 0-12 % Eosinophils (%) (Auto) 1 0-10 % Basophils (%) (Auto) 0 0-10 % Neutrophils # (Auto) 11.0 H 1.8-7.8 10^3/uL Lymphocytes # (Auto) 1.9 1.0-4.0 10^3/uL Monocytes # (Auto) 0.7 0.0-1.0 10^3/uL Eosinophils # (Auto) 0.1 0.0-0.3 10^3/uL Basophils # (Auto) 0.1 0.0-0.1 10^3/uL Immature Granulocyte # (Auto) 0.1 0.0-0.1 10^3/uL Sodium Level 140 135-145 MMOL/L Potassium Level 3.6 3.6-5.0 MMOL/L Chloride Level 100 98-107 MMOL/L Carbon Dioxide Level 24 21-32 MMOL/L Anion Gap 16 H 5-14 MMOL/L Blood Urea Nitrogen 26 H 7-18 MG/DL Creatinine 1.76 H 0.60-1.30 MG/DL Estimat Glomerular Filtration Rate 33 BUN/Creatinine Ratio 15 Glucose Level 110 H 70-105 MG/DL Calcium Level 10.3 H 8.5-10.1 MG/DL Corrected Calcium 10.5 H 8.5-10.1 MG/DL Total Bilirubin 1.3 H 0.1-1.0 MG/DL Aspartate Amino Transf (AST/SGOT) 72 H 5-34 U/L Alanine Aminotransferase (ALT/SGPT) 67 H 0-55 U/L Alkaline Phosphatase 160 H 40-136 U/L Total Protein 8.6 H 6.4-8.2 GM/DL Albumin 3.7 3.2-4.5 GM/DL Urine Color ORANGE Urine Clarity CLOUDY Urine pH 6.0 5-9 Urine Specific [place] 1.025 H 1.016-1.022 Urine Protein 2+ H NEGATIVE Urine Glucose (UA) NEGATIVE NEGATIVE Urine Ketones 1+ H NEGATIVE Urine Nitrite POSITIVE H NEGATIVE Urine Bilirubin 3+ H NEGATIVE Urine Urobilinogen >=8.0 < = 1.0 MG/DL Urine Leukocyte Esterase NEGATIVE NEGATIVE Urine RBC (Auto) TRACE-I H NEGATIVE Urine RBC 2-5 H /HPF Urine WBC 0-2 /HPF Urine Squamous Epithelial Cells 25-50 H /HPF Urine Crystals PRESENT H /LPF Urine Amorphous Sediment FEW ENMANUEL URATES H /LPF Urine Bacteria LARGE H /HPF Urine Casts PRESENT /LPF Urine Hyaline Casts 2-5 H /LPF Urine Mucus SMALL H /LPF Urine Culture Indicated YES Lactic Acid Level 0.82 0.50-2.00 MMOL/L Micro Results Microbiology 12/07/22 Blood Culture - Preliminary, Resulted No growth 12/07/22 Blood Culture - Preliminary, Resulted No growth My Orders Orders - ANGEL WAY MD Ed Iv/Invasive Line Start (12/07/22 19:44) Cbc With Automated Diff (12/07/22 19:44) Comprehensive Metabolic Panel (12/07/22 19:44) Ua Culture If Indicated (12/07/22 19:44) Ct Abd/Pelvis Wo(Kidney Stone) (12/07/22 19:44) Morphine Injection (Morphine Injection (12/07/22 19:44) Ondansetron Injection (Zofran Injectio (12/07/22 19:45) Urine Culture (12/07/22 20:00) Ns Iv 1000 Ml (Sodium Chloride 0.9%) (12/07/22 20:47) Blood Culture (12/07/22 21:24) Lactic Acid Analyzer (12/07/22 21:24) Piperacillin Sodium/Tazobactam (Zosyn Vi (12/07/22 21:30) Morphine Injection (Morphine Injection (12/07/22 21:24) Ed Admission (Communication) (12/07/22 21:24) Blood Culture (12/07/22 21:52) Medications Given in ED Vital Signs/I&O 12/07/22 12/07/22 19:30 22:27 Temp 36.0 Pulse 122 Resp 18 18 B/P (MAP) 119/84 (96) 122/81 Pulse Ox 94 99 Admisison Planning May Need Admission (Planning): 21:17 Progress Progress Note : Time: 21:17 Progress Note Patient seen and evaluated by me. Evaluation today includes physical exam, CBC, Chem-12, urinalysis, blood cultures, lactic acid and CT scan of the abdomen and pelvis without contrast. Pertinent physical exam findings well-developed well- nourished obese black female in mild distress due to abdominal pain, nausea. Abdomen is distended, tender to palpation in the mid epigastrium almost with induration present. Hypoactive bowel sounds, no high-pitched or tinkling bowel sounds are auscultated. Lungs are clear, heart is regular, tachycardic. No lo wer extremity edema. She is afebrile. Differential diagnosis based on history and physical exam, small bowel obstruction, perforated viscus, acute appendicitis, dehydration. Labs reviewed by me include CBC which is pertinent for white blood cell count of 13.8, hemoglobin of 12.6, hematocrit of 41, platelet count of 315. Chemistry shows increased BUN and creatinine at 26 and 1.76. Patient also has mild elevation in her liver functions. Urine is pertinent for increased overall specific gravity at 1.025 with 2+ protein, 1+ ketones, positive for nitrites. 3+ bilirubin 2-5 red blood cells and 25-50 white blood cells. Large bacteria. CT scan of the abdomen and pelvis is concerning for partial versus complete small bowel obstruction. Patient is treated in the emergency department with normal saline, IV morphine and Zofran. She is given Zosyn for her urinary tract infection. Case was discussed with Dr. Jose martin for general surgery, as the patient has been seen by Dr. Danielson in the past we will consult him in the morning. Case was also discussed with Dr. Maged martin as the hospitalist for [facility] who accepts patient for admission. Diagnostic Imaging Diagonstic Imaging: CT Comments [facility], [place] NAME: MARYLOU [facility] REC#: [id number] PT STATUS: REG ER : 1960 PHYSICIAN: ANGEL WAY MD ADMIT DATE: 12/07/22/ER Signed Date of Exam:12/07/22 CT ABD/PELVIS WO(KIDNEY STONE) PROCEDURE: CT urinary tract, rule out kidney stone. TECHNIQUE: Multiple contiguous axial images were obtained through the abdomen and pelvis without the use of intravenous contrast. Auto Exposure Controls were utilized during the CT exam to meet ALARA standards for radiation dose reduction. INDICATION: Right lower pelvic pain. COMPARISON: CT abdomen pelvis 04/02/2022. FINDINGS: Included views of the lung bases demonstrate bibasilar subsegmental atelectasis. The liver, spleen, pancreas, and adrenal glands are normal. Postcholecystectomy changes. Moderate left hydronephrosis without evidence of nephrolithiasis. There is a phlebolith in the pelvis. The urinary bladder is decompressed. The right kidney is normal. Diffuse small bowel distention with corporate representative small bowel loop measuring 3.8 cm. Some of these bowels demonstrate air-fluid levels. There is relative decompressed: There are multiple enlarged mesenteric lymph nodes with surrounding fat stranding. One of the lymph nodes measures 1.3 x 1.3 cm multiple other enlarged mesenteric lymph nodes are identified. Enlarged pelvic lymph nodes are also seen, for instance left pelvic lymph node measuring 1.4 x 1.4 cm (image 131 series 2). Enlarged retroperitoneal lymph nodes, measuring 2.1 x 1.5 cm. The osseous structures demonstrate no lytic or sclerotic bone lesions. Moderate multilevel facet arthritis in the lumbar spine. Small fat-containing umbilical hernia. IMPRESSION: Diffuse small bowel distention may represent small bowel obstruction or ileus. Moderate left hydronephrosis without evidence of nephrolithiasis. This may be seen with an infectious process, neoplasm, or other etiologies. Consider correlation with urinalysis and postcontrast CT of the abdomen and pelvis for further assessment. Enlarged mesenteric, retroperitoneal, and pelvic lymph nodes concerning for malignancy. Continued workup is required which may include a PET scan. Dictated by: Dictated on workstation # [id number] Dict: 12/07/222048 Trans: 12/07/222058 [facility] [place] [id number] Interpreted by: NATANAEL MARTELL DO Electronically signed by: NATANAEL MARTELL DO 12/07/222058 Departure Communication (Admissions) Time/Spoke to Admitting Phy: 21:[address] Mello (Hospitalist for [facility]) Time/Spoke to Consulting Phy: 21:[address] Garcia - general surgery; will consult (to Jagjit) Impression Primary Impression: Small bowel obstruction Additional Impressions: Endometrial cancer Urinary tract infection Qualified Codes: N39.0 - Urinary tract infection, site not specified Acute kidney injury Disposition: ADMITTED INPATIENT Condition: Stable Admissions Decision to Admit Reason: Admit from ER (General) Decision to Admit/Date: December 07, 2022 Time/Decision to Admit Time: 21:16 Departure-Patient Inst. Referrals: SHARIFA BULLOCK MD (PCP/Family) Primary Care Physician ANGEL WAY MD December 07, 2022 19:39
[2022-12-07] MEDS ORDERED: morphine INJ 10 MG/ML 1ML (SYR OR VIAL) IVP STA ×2 (19:44→21:24)
[2022-12-07] MEDS ORDERED: ONDANSETRON 4 MG/2 ML (SDV) Z0FRAN IVP ONE (19:45)
[2022-12-07 20:06] LABS: BASOPHILS # (AUTO) 0.1 10^3/uL (0.0-0.1); BASOPHILS % (AUTO) 0 % (0-10); EOSINOPHILS # (AUTO) 0.1 10^3/uL (0.0-0.3); EOSINOPHILS % (AUTO) 1 % (0-10); HEMATOCRIT 41 % (35-52); HEMOGLOBIN 12.6 g/dL (11.5-16.0); LYMPHOCYTES # (AUTO) 1.9 10^3/uL (1.0-4.0); LYMPHOCYTES % (AUTO) 14 % (12-44); MEAN CORPUSCULAR HEMOGLOBIN 26 pg (25-34); MEAN CORPUSCULAR HGB CONC 31 g/dL (32-36); MEAN CORPUSCULAR VOLUME 83 fL (80-99); MEAN PLATELET VOLUME 9.7 fL (9.0-12.2); MONOCYTES # (AUTO) 0.7 10^3/uL (0.0-1.0); MONOCYTES % (AUTO) 5 % (0-12); NEUTROPHILS % (AUTO) 80 % (42-75); PLATELET COUNT 315 10^3/uL (130-400); WHITE BLOOD COUNT 13.8 10^3/uL (4.3-11.0)
[2022-12-07 20:09] LABS: ALBUMIN 3.7 GM/DL (3.2-4.5); POTASSIUM 3.6 MMOL/L (3.6-5.0)
[2022-12-07 20:11] LABS: CALCIUM 10.3 MG/DL (8.5-10.1)
[2022-12-07 20:12] LABS: TOTAL PROTEIN 8.6 GM/DL (6.4-8.2)
[2022-12-07 20:14] LABS: BILIRUBIN,TOTAL 1.3 MG/DL (0.1-1.0)
[2022-12-07 20:15] LABS: CREATININE SERUM 1.76 MG/DL (0.60-1.30)
[2022-12-07 20:20] LABS: CLARITY,URINE CLOUDY; COLOR,URINE ORANGE; GLUCOSE, URINE (UA) NEGATIVE (NEGATIVE); KETONES,URINE 1+ (NEGATIVE); LEUKOCYTE ESTERASE ,URINE NEGATIVE (NEGATIVE); NITRITE,URINE POSITIVE (NEGATIVE); PROTEIN,URINE 2+ (NEGATIVE)
[2022-12-07 20:30] LABS: AMORPHOUS SEDIMENT,UR FEW AMOR URATES /LPF; BACTERIA,URINE LARGE /HPF; SQUAMOUS EPITHELIAL CELL,UR 25-50 /HPF; WBC,URINE 0-2 /HPF
[2022-12-07 20:31] LABS: BILIRUBIN,URINE 3+ (NEGATIVE)
[2022-12-07] MEDS ORDERED: NS IV 1000 ML 1,000 ML IV STA (20:47)
--- NOTE | 2022-12-07 21:01 | Diagnostic Imaging Report ---
PROCEDURE: CT urinary tract, rule out kidney stone. TECHNIQUE: Multiple contiguous axial images were obtained through the abdomen and pelvis without the use of intravenous contrast. Auto Exposure Controls were utilized during the CT exam to meet ALARA standards for radiation dose reduction. INDICATION: Right lower pelvic pain. COMPARISON: CT abdomen pelvis 04/02/2022. FINDINGS: Included views of the lung bases demonstrate bibasilar subsegmental atelectasis. The liver, spleen, pancreas, and adrenal glands are normal. Postcholecystectomy changes. Moderate left hydronephrosis without evidence of nephrolithiasis. There is a phlebolith in the pelvis. The urinary bladder is decompressed. The right kidney is normal. Diffuse small bowel distention with international account representative small bowel loop measuring 3.8 cm. Some of these bowels demonstrate air-fluid levels. There is relative decompressed: There are multiple enlarged mesenteric lymph nodes with surrounding fat stranding. One of the lymph nodes measures 1.3 x 1.3 cm multiple other enlarged mesenteric lymph nodes are identified. Enlarged pelvic lymph nodes are also seen, for instance left pelvic lymph node measuring 1.4 x 1.4 cm (image 131 series 2). Enlarged retroperitoneal lymph nodes, measuring 2.1 x 1.5 cm. The osseous structures demonstrate no lytic or sclerotic bone lesions. Moderate multilevel facet arthritis in the lumbar spine. Small fat-containing umbilical hernia. IMPRESSION: Diffuse small bowel distention may represent small bowel obstruction or ileus. Moderate left hydronephrosis without evidence of nephrolithiasis. This may be seen with an infectious process, neoplasm, or other etiologies. Consider correlation with urinalysis and postcontrast CT of the abdomen and pelvis for further assessment. Enlarged mesenteric, retroperitoneal, and pelvic lymph nodes concerning for malignancy. Continued workup is required which may include a PET scan. Dictated by: Dictated on workstation # [id number]
[2022-12-07] MEDS ORDERED: PIPERACILLIN SODIUM/TAZOBACTAM 4.5 GM in NS (IVPB) 100 ML IV ONE (21:30)
[2022-12-07 22:51] VITALS: BP 140/93
[2022-12-07] MEDS ORDERED: ACETAMINOPHEN 325 MG TABLET PO PRN (23:15)
[2022-12-07] MEDS ORDERED: diphenhydrAMINE 50 MG/ML INJ (BENADRYL) IVP PRN (23:15)
[2022-12-07] MEDS ORDERED: MELATONIN 3 MG TABLET PO PRN (23:15)
[2022-12-07] MEDS ORDERED: diphenhydrAMINE 25 MG TAB (BENADRYL) PO PRN (23:15)
[2022-12-07] MEDS ORDERED: polyethylene glycoL POWDER 17 GM (MIRALAX) PACK PO PRN (23:15)
[2022-12-07] MEDS ORDERED: MILK OF MAGNESIA 400 MG/5 ML 30 ML UDC PO PRN (23:15)
[2022-12-07] MEDS ORDERED: BISACODYL 10 MG SUPP (DULCOLAX) PR PRN (23:15)
[2022-12-07] MEDS ORDERED: ANTACID SUSP 30 ML UDC (MYLANTA) PO PRN (23:15)
[2022-12-07] MEDS ORDERED: LACTULOSE SYRUP 10GM/15ML (ENULOSE) 30ML UDC PO PRN (23:15)
[2022-12-07] MEDS: NS IV 1000 ML 1,000 ML IV SCH (23:26)
[2022-12-07 23:38] VITALS: BP 138/88
[2022-12-08] MEDS: HYDROmorphone 2 MG/ML VIAL (DILAUDID) IV PRN ×3 (01:34→19:53)
[2022-12-08] MEDS ORDERED: RT-ALBUTEROL SULF 2.5 MG/3 ML PRE-MIX VIAL INH SCH (02:00)
[2022-12-08 03:12] VITALS: BP 137/83
[2022-12-08] MEDS: PIPERACILLIN SODIUM/TAZOBACTAM 4.5 GM in NS (IVPB) 100 ML IV SCH ×3 (03:54→19:53)
[2022-12-08 05:56] LABS: BASOPHILS % (AUTO) 0 % (0-10); EOSINOPHILS # (AUTO) 0.1 10^3/uL (0.0-0.3); EOSINOPHILS % (AUTO) 1 % (0-10); HEMATOCRIT 37 % (35-52); HEMOGLOBIN 11.6 g/dL (11.5-16.0); LYMPHOCYTES # (AUTO) 1.6 10^3/uL (1.0-4.0); LYMPHOCYTES % (AUTO) 15 % (12-44); MEAN CORPUSCULAR HEMOGLOBIN 26 pg (25-34); MEAN CORPUSCULAR HGB CONC 31 g/dL (32-36); MEAN CORPUSCULAR VOLUME 84 fL (80-99); MEAN PLATELET VOLUME 10.2 fL (9.0-12.2); MONOCYTES # (AUTO) 0.8 10^3/uL (0.0-1.0); MONOCYTES % (AUTO) 7 % (0-12); NEUTROPHILS % (AUTO) 76 % (42-75); PLATELET COUNT 280 10^3/uL (130-400); WHITE BLOOD COUNT 10.5 10^3/uL (4.3-11.0)
[2022-12-08 06:12] LABS: ALBUMIN 3.2 GM/DL (3.2-4.5); POTASSIUM 3.7 MMOL/L (3.6-5.0)
[2022-12-08 06:14] LABS: TOTAL PROTEIN 7.2 GM/DL (6.4-8.2)
[2022-12-08 06:16] LABS: BILIRUBIN,TOTAL 1.5 MG/DL (0.1-1.0)
[2022-12-08 06:18] LABS: CREATININE SERUM 1.85 MG/DL (0.60-1.30)
[2022-12-08] MEDS: RT-ALBUTEROL SULF 2.5 MG/3 ML PRE-MIX VIAL INH PRN ×2 (07:10→19:16)
[2022-12-08 08:00] VITALS: BP 116/73
[2022-12-08] MEDS: DOCUSATE SODIUM 100 MG (COLACE) CAP PO SCH ×2 (08:47→19:53)
[2022-12-08] MEDS: SENNOSIDES 8.6 MG (SENOKOT) TAB PO SCH ×2 (08:47→19:53)
[2022-12-08] MEDS: ENOXAPARIN 60 MG/0.6 ML (LOVENOX) SYR SC SCH ×2 (08:47→19:53)
[2022-12-08] MEDS: NS IV 1000 ML 1,000 ML IV SCH ×2 (08:50→19:07)
[2022-12-08] MEDS ORDERED: SENN15TA PO (11:27)
[2022-12-08] MEDS ORDERED: POTASSIUM CL PO (11:27)
--- NOTE | 2022-12-08 13:49 | History & Physical-Hospitalist ---
[facility] 12/08/22 1349: History of Present Illness HPI/Chief Complaint CC: SBO and UTI Patient is a 62 yo F w/ history of endometrial cancer, sarcoidosis with a tracheostomy who presented to the ED with cc of epigastric, right upper quadrant and right flank pain. She states it has been going on for couple of days. Her urine has been "c[place] dark". She has had nausea and vomiting with decreased appetite, unable to keep liquids or solids down. No diarrhea, black or bloody stools (cannot remember last BM). No blood in her vomit. She has had prior cholecystectomy and recently had radical hysterectomy for her endometrial cancer but has been informed there were mets "left behind". Still has her appendix. No fevers or chills. No URI symptoms. EMS started fluids but did not give any pain meds. On exam today, patient has recently been given Dilaudid that has her pain reasonably well controlled. She has had UOP but no BM. She is less nauseous than before but still somewhat though she has not vomited since admission. Currently receiving IVF and 8L O2 through trach Date Seen 12/08/22 Time Seen by a Provider: 11:00 Attending Physician Dorcas Aaron MD PCP Admitting Physician: Coretta Lynne DO Attending Physician: Coretta Lynne DO Referring Physician Date of Admission December 07, 2022 at 22:31 Home Medications & Allergies Home Medications Reviewed patient Home Medication Reconciliation performed by pharmacy medication reconciliations sound technician and/or nursing. Patients Allergies have been reviewed. Allergies Allergies Coded Allergies No Known Drug Allergies ([id number]/9/22) Past Khlimoy-Tmrfgi-Zkchzd Hx Patient Social History Tobacco Use?: No Substance use?: No Alcohol Use?: No Pt feels they are or have been: No Immunizations Up To Date Date of Influenza Vaccine: May 08, 2022 First/Initial COVID19 Vaccinat: 2020 Second COVID19 Vaccination Mickey: 2020 Tetanus Booster (TDap): Unknown Hepatitis A: No Hepatitis B: No PED Vaccines UTD: Yes Seasonal Allergies Seasonal Allergies: No Current Status Advance Directives: No Communicates: Verbally Primary Language: Turkish Preferred Spoken Language: Turkish Is interpretation needed?: No Implanted or Applied Medical D: Central venous access Past Medical History Surgeries: Gallbladder, Hysterectomy, Tracheostomy Asthma, Pneumonia, Chronic Bronchitis, COPD Currently Using CPAP: No Currently Using BIPAP: No High Cholesterol, Hypertension 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 Hypertension, Lung Disease Review of Systems Constitutional: see HPI EENTM: no symptoms reported Respiratory: no symptoms reported Cardiovascular: no symptoms reported Gastrointestinal: RUQ (pain), see HPI, loss of appetite, nausea, vomiting Genitourinary: see HPI Musculoskeletal: back pain (right flank) Skin: no symptoms reported Psychiatric/Neurological: No Symptoms Reported Physical Exam Physical Exam Vital Signs Vital Signs - First Documented 12/07/22 12/07/22 12/07/22 19:30 22:51 23:00 Temp 36.0 Pulse 122 Resp 18 B/P (MAP) 119/84 (96) Pulse Ox 94 O2 Delivery Trach Collar O2 Flow Rate 3.00 FiO2 30 Capillary Refill : Less Than 3 Seconds Height, Weight, BMI Height: 5'5.00" Weight: 335lbs. 0.4oz. [id number]; 49.51 BMI Method:Actual General Appearance: No Apparent Distress, Obese HEENT: PERRL/EOMI, Normal ENT Inspection, Pharynx Normal, Moist Mucous Membranes Neck: Full Range of Motion, Non Tender, Supple, Other (tracheostomy in place without redness or swelling) Respiratory: Chest Non Tender, Lungs Clear, Normal Breath Sounds, No Accessory Muscle Use, No Respiratory Distress Cardiovascular: Regular Rate, Rhythm, No Gallop, No Murmur, Normal Peripheral Pulses Gastrointestinal: Abnormal Bowel Sounds (hypoactive), Tenderness (epigastrum, RUQ, and RCVA tenderness) Back: CVA Tenderness (R) Skin: Normal Color, Warm/Dry Results Results/Procedures Labs Laboratory Tests 12/07/22 19:39 12/08/22 05:19 Patient resulted labs reviewed. Imaging: Reviewed Imaging Report Assessment/Plan Admission Diagnosis SBO and UTI Assessment and Plan SBO - multiple days n/v unable to tolerate liquids or solids - CT abd suggestive of SBO - recent (05/2022) radical hysterectomy for endometrial cancer, high likelihood SBO 2/2 adhesions - no vomiting since admission, no blood in vomit or stool, pt hemodynamically stable, CT did not suggest incarceration - consult surgery for interventional vs. conservative management, appreciate recs - continue NPO and supportive fluids - cont pain mngmt UTI ALEKSANDRA 2/2 UTI/dehydration - UA + nitrites and bacteria - Cr 1.85, BL unknown - pt without sufficient PO hydration for multiple days with n/v - given zosyn in ED - cx's pending - cont abx - cont IVF Endometrial cancer with mets - Recent radical hysterectomy - multiple reactive lymph nodes on CT abd - scheduled for chemo starting December 15 CORETTA LYNNE DO 12/08/222046: History of Present Illness Source: patient Past Tfrvlzq-Qhfzzd-Zvjggj Hx Family Medical History Patient reports no known family medical history. Review of Systems Constitutional: see HPI Physical Exam Physical Exam General Appearance: No Apparent Distress, Chronically ill Respiratory: Lungs Clear, Normal Breath Sounds Cardiovascular: Regular Rate, Rhythm Assessment/Plan Admission Diagnosis Admission Status: Inpatient Order (span 2 midnights) Reason for Inpatient Admission: sepsis Supervisory-Addendum Brief Verification & Attestation Participated in pt care: history, MDM, physical Personally performed: exam, history, MDM, supervision of care Care discussed with: Medical Student Procedures: n/a Results interpretation: Verified all documentation Verification and Attestation of Medical Student E/M Service A medical student performed and documented this service in my presence. I reviewed and verified all information documented by the medical student and made modifications to such information, when appropriate. I personally performed the physical exam and medical decision making. Coretta Lynne, December 08, 2022,20:47 [facility] December 08, 2022 13:49 CORETTA LYNNE DO December 08, 2022 20:47
--- NOTE | 2022-12-08 14:27 | Consultation - Surgery ---
History of Present Illness History of Present Illness Patient Consulted On(rosie/time) 12/08/22 14:22 Time Seen by Provider: 13:36 History of Present Illness Surgery asked to consult regarding PSBO. HPI per ED: Patient is a 62-year-old female history of endometrial cancer, sarcoidosis with a tracheostomy presents to the emergency room with a chief complaint of epigastric, right upper quadrant and right flank pain. She states it has been going on for couple of days. Her urine has been very "dark". She has had nausea and vomiting with decreased appetite. No diarrhea, black or bloody stools. (cannot remember last BM). No blood in her vomit. She has had prior hysterectomy and cholecystectomy. Still has her appendix. No fevers or chills. No URI symptoms. EMS started fluids but did not give any pain meds. She currently rates her pain at a "10". She is mildly nauseated currently. No history of kidney stone. When I saw pt she was lying comfortably in her bed. She states the pain is a little better and asking for sips of liquids. She denies BMs. Pt rated her pain when I saw her as 3-4 out of 10, mostly with movements or palpation of abdomen. 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 She still has some nausea, but no emesis since admission. She was told when they did her hysterectomy that "they left cancer behind". Allergies and Home Medications Allergies Coded Allergies: No Known Drug Allergies (Unverified , 07/16/22) Patient Home Medication List Home Medication List Reviewed: Yes Albuterol Sulfate (Albuterol Sulfate) 2.5 Mg/3 Ml (0.083 %) Vial.neb, 1 VIAL PO Q6H PRN for SHORTNESS OF BREATH, (Reported) Entered as Reported by: MIRANDA CRISTOBAL on 11/07/20 1001 Last Action: Reviewed Albuterol Sulfate (Ventolin Hfa) 90 Mcg Hfa.aer.ad, 2 PUFF INH Q6H PRN for SHORTNESS OF BREATH, (Reported) Entered as Reported by: MIRANDA CRISTOBAL on 12/02/21 1003 Last Action: Reviewed Cyclobenzaprine HCl (Cyclobenzaprine HCl) 5 Mg Tablet, 5 MG PO TID PRN for MUSCLE SPASMS, (Reported) Entered as Reported by: MIRANDA CRISTOBAL on 12/02/21 1003 Last Action: Reviewed Furosemide (Furosemide) 20 Mg Tablet, 20 MG PO DAILY PRN for FLUID RETENTION, (Reported) Entered as Reported by: MIRANDA CRISTOBAL on 12/02/21 1003 Last Action: Reviewed Hydrochlorothiazide (Hydrochlorothiazide) 25 Mg Tablet, 25 MG PO DAILY, (Reported) Entered as Reported by: VIKKI CHOI on 06/19/17 1130 Last Action: Reviewed Polyethylene Glycol 3350 ([id number]) 17 Gram/Dose Powder, 17 GM PO DAILY PRN for CONSTIPATION-1ST LINE, (Reported) Entered as Reported by: MEY CHILDRESS on 06/07/22 123 Last Action: Reviewed Rosuvastatin Calcium (Rosuvastatin Calcium) 40 Mg Tablet, 40 MG PO DAILY, (Reported) Entered as Reported by: SHARIFA GONZÁLES on 09/15/20 1251 Last Action: Reviewed Sennosides (Ex-Lax) 15 Mg Tablet, 15-30 MG PO BID PRN for CONSTIPATION-5TH LINE, (Reported) Entered as Reported by: MIRANDA CRISTOBAL on 12/08/22 112 Last Action: Reviewed Tiotropium [place] (Spiriva) 18 Mcg Aerp, 1 PUFF PO DAILY PRN for SHORTNESS OF BREATH, (Reported) Entered as Reported by: MEY CHILDRESS on 06/07/22 1238 Last Action: Reviewed [Potassium Cl Liquid] 20MEQ/15ML SOLUTION, 15 ML PO DAILY, (Reported) Entered as Reported by: MIRANDA CRISTOBAL on 12/08/22 112 Last Action: Reviewed Discontinued Medications Docusate Sodium (Docusate Sodium) 100 Mg Capsule, 100 MG PO DAILY PRN for CONSTIPATION-1ST LINE, (Reported) Discontinued Reason: No Longer Taking Entered as Reported by: MEY CHILDRESS on 06/07/22 1237 Last Action: Discontinued Ergocalciferol (Vitamin D2) (Vitamin D2) 1,250 Mcg (61231 Unit) Capsule, 1,250 MCG PO ONCE WEEKLY, (Reported) Discontinued Reason: No Longer Taking Entered as Reported by: MEY CHILDRESS on 06/07/22 1237 Last Action: Discontinued Fluoxetine HCl (Fluoxetine HCl) 20 Mg Capsule, 40 MG PO DAILY Discontinued Reason: No Longer Taking Prescribed by: ROBINA MELLO on 06/08/22 0844 Last Action: Discontinued Lidocaine (Lidocaine 5% Patch) 1 Each Adh..patch, 1 PATCH TD DAILY PRN for PAIN- BREAKTHROUGH, (Reported) Discontinued Reason: No Longer Taking Entered as Reported by: MIRANDA CRISTOBAL on 11/07/20 1001 Last Action: Discontinued Multivitamin W/Iron, Minerals (Multivitamins with Iron) 1 Each Tab.chew, 1 EACH PO DAILY, (Reported) Discontinued Reason: No Longer Taking Entered as Reported by: MEY CHILDRESS on 06/07/22 1241 Last Action: Discontinued Naproxen Sodium (Aleve) 220 Mg Tablet, 220 MG PO Q8H PRN for PAIN-MILD (1-4), (Reported) Discontinued Reason: No Longer Taking Entered as Reported by: MIRANDA CRISTOBAL on 12/02/21 1003 Last Action: Discontinued Omeprazole (Omeprazole) 40 Mg Capsule.dr, 40 MG PO DAILY PRN for ACID REFLUX, (Reported) Discontinued Reason: No Longer Taking Entered as Reported by: MEY CHILDRESS on 06/07/22 1241 Last Action: Discontinued Oxycodone HCl (Oxycodone HCl) 5 Mg Tablet, 5 MG PO Q4H PRN for PAIN-SEVERE (8- 10), (Reported) Discontinued Reason: No Longer Taking Entered as Reported by: MEY CHILDRESS on 06/07/22 1237 Last Action: Discontinued Past Cbsovgm-Snmizu-Ckohcj Hx Patient Social History Drug of Choice: DENIES/ hx of drug use Smoking Status: Never a Smoker Former Smoker, Quit: December 10, 2003 Type Used: Cigarettes 2nd Hand Smoke Exposure: No Recent Hopitalizations: No Alcohol Use?: No Have you traveled recently?: No Immunizations Up To Date Tetanus Booster (TDap): Unknown PED Vaccines UTD: Yes Date of Influenza Vaccine: May 08, 2022 Seasonal Allergies Seasonal Allergies: No Surgeries History of Surgeries: Yes (PORT RIGHT CHEST/REMOVED; ABSCESS I&D LEFT AXILLA; PERMANENT TRACHEOSTOMY) Surgeries: Gallbladder, Hysterectomy, Tracheostomy Respiratory History of Respiratory Disorde: Yes (PT HAS TRACH D/T SARCOIDOSIS, WEAR OXYGEN AT HOME 3L) Respiratory Disorders: Asthma, Pneumonia, Chronic Bronchitis, COPD Cardiovascular History of Cardiac Disorders: Yes Cardiac Disorders: High Cholesterol, Hypertension Neurological History of Neurological Disord: No Reproductive System Female Reproductive Disorders: Denies 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, 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 Genitourinary History of Genitourinary Disor: No Gastrointestinal History of Gastrointestinal Di: Yes (hepatitis C treated with Harvoni in 2015- 2016; ANAL CANCER--2011) Gastrointestinal Disorders: Gastroesophageal Reflux, Hepatitis, Gall Bladder Disease Musculoskeletal History of Musculoskeletal Dis: Yes (SARCOIDOSIS, CARPAL TUNNEL BILAT) Musculoskeletal Disorders: Arthritis Endocrine History of Endocrine Disorders: Yes ("BORDERLINE DIABETIC"; MORBID OBESITY) HEENT History of HEENT Disorders: Yes (PERMANENT TRACH; EDENTULOUS) Loss of Vision: Denies Hearing Impairment: Denies Cancer History of Cancer: Yes (RECTAL/ANAL CANCER IN 2011-NO SURGERY--TREATED WITH CHEMO + RADIATION) Cancer: Ovarian, Uterine Psychosocial History of Psychiatric Problem: Yes Behavioral Health Disorders: Anxiety, Depression Integumentary History of Skin or Integumenta: No Blood Transfusions History of Blood Disorders: No Adverse Reaction to a Blood Tr: No Family Medical History Significant Family History: Hypertension, Lung Disease Review of Systems-General Constitutional: No diaphoresis; fever, malaise EENTM: No blurred vision, No double vision, No mouth swelling Respiratory: No cough; dyspnea on exertion, other (pt has trach and on home O2) Cardiovascular: No chest pain, No palpitations Gastrointestinal: abdominal pain; No jaundice; loss of appetite, nausea, vomiting Musculoskeletal: back pain, joint pain, joint swelling Skin: No change in color, No change in hair/nails Psychiatric/Neurological: Anxiety, Depressed; Denies Seizure Physical Exam-General Problems Physical Exam Vital Signs Vital Signs - First Documented 12/07/22 12/07/22 12/07/22 19:30 22:51 23:00 Temp 36.0 Pulse 122 Resp 18 B/P (MAP) 119/84 (96) Pulse Ox 94 O2 Delivery Trach Collar O2 Flow Rate 3.00 FiO2 30 Capillary Refill : Less Than 3 Seconds General Appearance: no apparent distress, obese (morbidly) Eyes: Bilateral Eye PERRL, Bilateral Eye EOMI HEENT: pharynx normal; No scleral icterus (R), No scleral icterus (L); other (trach in place) Neck: non-tender, supple Respiratory: normal breath sounds (at bases), no respiratory distress, no accessory muscle use Cardiovascular: no murmur, tachycardia Gastrointestinal: soft, no organomegaly, guarding (voluntary), tenderness (RUQ and epigastric, kind of feels like fullness), hernia (small umbilical) Extremities: no pedal edema, no calf tenderness, normal capillary refill 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, alert, oriented x 3 Skin: normal color, warm/dry Lymphatic: no adenopathy (neck or groin) Data Review Labs Laboratory Tests 12/07/22 19:39: White Blood Count 13.8H, Red Blood Count 4.91, Hemoglobin 12.6, Hematocrit 41, Mean Corpuscular Volume 83, Mean Corpuscular Hemoglobin 26, Mean Corpuscular Hemoglobin Concent 31L, Red Cell Distribution Width 14.5, Platelet Count 315, Mean Platelet Volume 9.7, Immature Granulocyte % (Auto) 0, Neutrophils (%) (Auto) 80H, Lymphocytes (%) (Auto) 14, Monocytes (%) (Auto) 5, Eosinophils (%) (Auto) 1, Basophils (%) (Auto) 0, Neutrophils # (Auto) 11.0H, Lymphocytes # (Auto) 1.9, Monocytes # (Auto) 0.7, Eosinophils # (Auto) 0.1, Basophils # (Auto) 0.1, Immature Granulocyte # (Auto) 0.1, Sodium Level 140, Potassium Level 3.6, Chloride Level 100, Carbon Dioxide Level 24, Anion Gap 16H, Blood Urea Nitrogen 26H, Creatinine 1.76H, Estimat Glomerular Filtration Rate 33, BUN/Creatinine Ratio 15, Glucose Level 110H, Calcium Level 10.3H, Corrected Calcium 10.5H, Total Bilirubin 1.3H, Aspartate Amino Transf (AST/SGOT) 72H, Alanine Aminotransferase (ALT/SGPT) 67H, Alkaline Phosphatase 160H, Total Protein 8.6H, Albumin 3.7 12/07/22 20:00: Urine Color ORANGE, Urine Clarity CLOUDY, Urine pH 6.0, Urine Specific [place] 1.025H, Urine Protein 2+H, Urine Glucose (UA) NEGATIVE, Urine Ketones 1+H, Urine Nitrite POSITIVEH, Urine Bilirubin 3+H, Urine Urobilinogen >=8.0, Urine Leukocyte Esterase NEGATIVE, Urine RBC (Auto) TRACE-IH, Urine RBC 2-5H, Urine WBC 0-2, Urine Squamous Epithelial Cells 25-50H, Urine Crystals PRESENTH, Urine Amorphous Sediment FEW ENMANUEL URATESH, Urine Bacteria LARGEH, Urine Casts PRESENT, Urine Hyaline Casts 2-5H, Urine Mucus SMALLH, Urine Culture Indicated YES 12/07/22 21:43: Lactic Acid Level 0.82 12/08/22 05:19: White Blood Count 10.5, Red Blood Count 4.40, Hemoglobin 11.6, Hematocrit 37, Mean Corpuscular Volume 84, Mean Corpuscular Hemoglobin 26, Mean Corpuscular Hemoglobin Concent 31L, Red Cell Distribution Width 14.6H, Platelet Count 280, Mean Platelet Volume 10.2, Immature Granulocyte % (Auto) 1, Neutrophils (%) (Auto) 76H, Lymphocytes (%) (Auto) 15, Monocytes (%) (Auto) 7, Eosinophils (%) (Auto) 1, Basophils (%) (Auto) 0, Neutrophils # (Auto) 8.0H, Lymphocytes # (Auto) 1.6, Monocytes # (Auto) 0.8, Eosinophils # (Auto) 0.1, Basophils # (Auto) 0.0, Immature Granulocyte # (Auto) 0.1, Sodium Level 142, Potassium Level 3.7, Chloride Level 104, Carbon Dioxide Level 23, Anion Gap 15H, Blood Urea Nitrogen 25H, Creatinine 1.85H, Estimat Glomerular Filtration Rate 31, BUN/Creatinine Ratio 14, Glucose Level 103, Calcium Level 9.0, Corrected Calcium 9.6, Total Bilirubin 1.5H, Aspartate Amino Transf (AST/SGOT) 66H, Alanine Aminotransferase (ALT/SGPT) 62H, Alkaline Phosphatase 137H, Total Protein 7.2, Albumin 3.2 Microbiology 12/07/22 Blood Culture - Preliminary, Resulted No growth Radiology Date of Exam:12/07/22 CT ABD/PELVIS WO(KIDNEY STONE) PROCEDURE: CT urinary tract, rule out kidney stone. TECHNIQUE: Multiple contiguous axial images were obtained through the abdomen and pelvis without the use of intravenous contrast. Auto Exposure Controls were utilized during the CT exam to meet ALARA standards for radiation dose reduction. INDICATION: Right lower pelvic pain. COMPARISON: CT abdomen pelvis 04/02/2022. FINDINGS: Included views of the lung bases demonstrate bibasilar subsegmental atelectasis. The liver, spleen, pancreas, and adrenal glands are normal. Postcholecystectomy changes. Moderate left hydronephrosis without evidence of nephrolithiasis. There is a phlebolith in the pelvis. The urinary bladder is decompressed. The right kidney is normal. Diffuse small bowel distention with registration representative small bowel loop measuring 3.8 cm. Some of these bowels demonstrate air-fluid levels. There is relative decompressed: There are multiple enlarged mesenteric lymph nodes with surrounding fat stranding. One of the lymph nodes measures 1.3 x 1.3 cm multiple other enlarged mesenteric lymph nodes are identified. Enlarged pelvic lymph nodes are also seen, for instance left pelvic lymph node measuring 1.4 x 1.4 cm (image 131 series 2). Enlarged retroperitoneal lymph nodes, measuring 2.1 x 1.5 cm. The osseous structures demonstrate no lytic or sclerotic bone lesions. Moderate multilevel facet arthritis in the lumbar spine. Small fat-containing umbilical hernia. IMPRESSION: Diffuse small bowel distention may represent small bowel obstruction or ileus. Moderate left hydronephrosis without evidence of nephrolithiasis. This may be seen with an infectious process, neoplasm, or other etiologies. Consider correlation with urinalysis and postcontrast CT of the abdomen and pelvis for further assessment. Enlarged mesenteric, retroperitoneal, and pelvic lymph nodes concerning for malignancy. Continued workup is required which may include a PET scan. Dictated by: Dictated on workstation # [id number] Dict: 12/07/222048 Trans: 12/07/222058 [facility] [place] [id number] Interpreted by: NATANAEL MARTELL DO Electronically signed by: NATANAEL MARTELL DO 12/07/222058 Assessment/Plan Assessment/Plan Assessment/Plan Partial small bowel Obstruction Metastatic Endometrial CA with increase LN in abdomen Morbid Obesity Umbilical hernia I reviewed the CT myself and discussed case with primary physician. I see a subcutaneous mass (above the fascia) on the right side of abdomen that was not t here on last CT. I also see dilated loops of small bowel and some decompressed small bowel, with decompressed large bowel as well. I would treat this conservatively for now because she is getting a little better. OK to have sips and ice chips, but no more than that and encourage ambulation. If she does not improve, then she may need a SBFT. Would continue IVF, supplemental O2 and pain meds as needed. BRENNEN HERCULES DO December 08, 2022 14:27
--- NOTE | 2022-12-08 15:07 | Progress Note - Surgery ---
Subjective Date Seen by a Provider: December 08, 2022 Time Seen by a Provider: 14:45 Subjective/Events-last exam Patient states that she initially came to the hospital due to vomiting and constant abdominal pain. She states that she was able to handle the pain for one week. The patient reports that her last BM was on Tuesday and states it was brown and soft with mucus. Today, the patient states that her abdominal pain has improved to a 5/10. The patient describes the pain as in the upper and mid abdomen. She states that the pain is always there, but doesn't radiate elsewhere. Patient reports that she is currently experiencing nausea, but has not vomited since prior to admission. The patient states that she is able to walk to the bathroom by herself. Review of Systems General: No Night Sweats; Fatigue HEENT: No Head Aches, No Visual Changes Pulmonary: No Dyspnea Cardiovascular: No: Chest Pain, Palpitations Gastrointestinal: Nausea, Abdominal Pain, Constipation Genitourinary: Frequency; No Incontinence Neurological: No: Change in speech, Confusion Focused Exam Lactate Level 12/07/22 21:43: Lactic Acid Level 0.82 Objective Exam Vital Signs Date Time Temp Pulse Resp B/P (MAP) Pulse Ox O2 Delivery O2 Flow Rate FiO2 12/08/22 13:40 107 12/08/22 11:42 36.2 103 18 98 Trach Collar 8.00 12/08/22 08:00 36.2 105 18 116/73 (87) 97 Trach Collar 8.00 12/08/22 07:50 Trach Collar 8.00 12/08/22 07:09 Trach Collar 8.00 30 12/08/22 07:06 106 12/08/22 03:12 36.3 110 20 137/83 (101) 95 Trach Collar 3.00 3.00 12/08/22 01:00 114 12/08/22 00:11 97 30 12/07/22 23:43 114 12/07/22 23:38 36.5 120 20 138/88 (105) 97 Trach Collar 3.00 3.00 12/07/22 23:15 Trach Collar 3.00 12/07/22 23:00 Trach Collar 30 12/07/22 22:51 36.8 122 20 140/93 (109) 98 Trach Collar 3.00 12/07/22 22:27 18 122/81 99 12/07/22 19:30 36.0 122 18 119/84 (47) 94 I & O 12/08/22 07:00 Intake Total 2000 ml Output Total 100 ml Balance 1900 ml Capillary Refill : Less Than 3 Seconds General Appearance: No Apparent Distress, Obese HEENT: PERRL/EOMI, Moist Mucous Membranes Neck: Full Range of Motion, Non Tender, Supple, Other (tracheostomy in place ) Respiratory: Chest Non Tender, Lungs Clear, No Accessory Muscle Use Cardiovascular: Regular Rate, Rhythm Gastrointestinal: soft, guarding (voluntary), tenderness (RUQ and epigastric tenderness to palpation) Neurologic/Psychiatric: Alert, Oriented x3 Skin: Warm/Dry Results Lab Laboratory Tests 12/07/22 19:39: White Blood Count 13.8H, Red Blood Count 4.91, Hemoglobin 12.6, Hematocrit 41, Mean Corpuscular Volume 83, Mean Corpuscular Hemoglobin 26, Mean Corpuscular Hemoglobin Concent 31L, Red Cell Distribution Width 14.5, Platelet Count 315, Mean Platelet Volume 9.7, Immature Granulocyte % (Auto) 0, Neutrophils (%) (Auto) 80H, Lymphocytes (%) (Auto) 14, Monocytes (%) (Auto) 5, Eosinophils (%) (Auto) 1, Basophils (%) (Auto) 0, Neutrophils # (Auto) 11.0H, Lymphocytes # (Auto) 1.9, Monocytes # (Auto) 0.7, Eosinophils # (Auto) 0.1, Basophils # (Auto) 0.1, Immature Granulocyte # (Auto) 0.1, Sodium Level 140, Potassium Level 3.6, Chloride Level 100, Carbon Dioxide Level 24, Anion Gap 16H, Blood Urea Nitrogen 26H, Creatinine 1.76H, Estimat Glomerular Filtration Rate 33, BUN/Creatinine Ratio 15, Glucose Level 110H, Calcium Level 10.3H, Corrected Calcium 10.5H, Total Bilirubin 1.3H, Aspartate Amino Transf (AST/SGOT) 72H, Alanine Aminotransferase (ALT/SGPT) 67H, Alkaline Phosphatase 160H, Total Protein 8.6H, Albumin 3.7 12/07/22 20:00: Urine Color ORANGE, Urine Clarity CLOUDY, Urine pH 6.0, Urine Specific Rupert 1.025H, Urine Protein 2+H, Urine Glucose (UA) NEGATIVE, Urine Ketones 1+H, Urine Nitrite POSITIVEH, Urine Bilirubin 3+H, Urine Urobilinogen >=8.0, Urine Leukocyte Esterase NEGATIVE, Urine RBC (Auto) TRACE-IH, Urine RBC 2-5H, Urine WBC 0-2, Urine Squamous Epithelial Cells 25-50H, Urine Crystals PRESENTH, Urine Amorphous Sediment FEW ENMANUEL URATESH, Urine Bacteria LARGEH, Urine Casts PRESENT, Urine Hyaline Casts 2-5H, Urine Mucus SMALLH, Urine Culture Indicated YES 12/07/22 21:43: Lactic Acid Level 0.82 12/08/22 05:19: White Blood Count 10.5, Red Blood Count 4.40, Hemoglobin 11.6, Hematocrit 37, Mean Corpuscular Volume 84, Mean Corpuscular Hemoglobin 26, Mean Corpuscular Hemoglobin Concent 31L, Red Cell Distribution Width 14.6H, Platelet Count 280, Mean Platelet Volume 10.2, Immature Granulocyte % (Auto) 1, Neutrophils (%) (Auto) 76H, Lymphocytes (%) (Auto) 15, Monocytes (%) (Auto) 7, Eosinophils (%) (Auto) 1, Basophils (%) (Auto) 0, Neutrophils # (Auto) 8.0H, Lymphocytes # (Auto) 1.6, Monocytes # (Auto) 0.8, Eosinophils # (Auto) 0.1, Basophils # (Auto) 0.0, Immature Granulocyte # (Auto) 0.1, Sodium Level 142, Potassium Level 3.7, Chloride Level 104, Carbon Dioxide Level 23, Anion Gap 15H, Blood Urea Nitrogen 25H, Creatinine 1.85H, Estimat Glomerular Filtration Rate 31, BUN/Creatinine Ratio 14, Glucose Level 103, Calcium Level 9.0, Corrected Calcium 9.6, Total Bilirubin 1.5H, Aspartate Amino Transf (AST/SGOT) 66H, Alanine Aminotransferase (ALT/SGPT) 62H, Alkaline Phosphatase 137H, Total Protein 7.2, Albumin 3.2 Microbiology 12/07/22 Blood Culture - Preliminary, Resulted No growth Assessment/Plan Assessment/Plan Assessment/Plan Partial small bowel Obstruction Metastatic Endometrial CA with increase LN in abdomen Morbid Obesity Patient abdominal pain is improving since admission, would recommend patient be ambulating. Patient agreeable and eager to ambulate. Would recommend patient continue supplemental O2 and IV fluids. HAILEY PUENTE December 08, 2022 15:07
[2022-12-08 16:08] VITALS: BP 125/82
[2022-12-08 20:00] VITALS: BP 108/59
[2022-12-08 23:57] VITALS: BP 113/63
[2022-12-09] MEDS: HYDROmorphone 2 MG/ML VIAL (DILAUDID) IV PRN ×2 (02:52→16:04)
[2022-12-09 03:04] VITALS: BP 115/76
[2022-12-09] MEDS: PIPERACILLIN SODIUM/TAZOBACTAM 4.5 GM in NS (IVPB) 100 ML IV SCH ×3 (03:54→19:34)
[2022-12-09] MEDS: NS IV 1000 ML 1,000 ML IV SCH ×3 (05:23→19:34)
[2022-12-09 05:50] LABS: BASOPHILS % (AUTO) 0 % (0-10); EOSINOPHILS # (AUTO) 0.2 10^3/uL (0.0-0.3); EOSINOPHILS % (AUTO) 1 % (0-10); HEMATOCRIT 38 % (35-52); HEMOGLOBIN 11.5 g/dL (11.5-16.0); LYMPHOCYTES # (AUTO) 1.6 10^3/uL (1.0-4.0); LYMPHOCYTES % (AUTO) 15 % (12-44); MEAN CORPUSCULAR HEMOGLOBIN 26 pg (25-34); MEAN CORPUSCULAR HGB CONC 30 g/dL (32-36); MEAN CORPUSCULAR VOLUME 87 fL (80-99); MEAN PLATELET VOLUME 9.8 fL (9.0-12.2); MONOCYTES # (AUTO) 0.8 10^3/uL (0.0-1.0); MONOCYTES % (AUTO) 7 % (0-12); NEUTROPHILS # (AUTO) 8.1 10^3/uL (1.8-7.8); NEUTROPHILS % (AUTO) 76 % (42-75); PLATELET COUNT 245 10^3/uL (130-400); WHITE BLOOD COUNT 10.6 10^3/uL (4.3-11.0)
[2022-12-09 05:59] LABS: POTASSIUM 3.8 MMOL/L (3.6-5.0)
[2022-12-09 06:01] LABS: TOTAL PROTEIN 7.1 GM/DL (6.4-8.2)
[2022-12-09 06:03] LABS: BILIRUBIN,TOTAL 1.2 MG/DL (0.1-1.0)
[2022-12-09 06:05] LABS: CREATININE SERUM 2.23 MG/DL (0.60-1.30)
[2022-12-09] MEDS: RT-ALBUTEROL SULF 2.5 MG/3 ML PRE-MIX VIAL INH PRN (07:39)
[2022-12-09 07:44] VITALS: BP 116/83
[2022-12-09] MEDS: ENOXAPARIN 60 MG/0.6 ML (LOVENOX) SYR SC SCH ×2 (08:32→19:34)
[2022-12-09] MEDS: DOCUSATE SODIUM 100 MG (COLACE) CAP PO SCH ×3 (08:34→19:34)
[2022-12-09] MEDS: SENNOSIDES 8.6 MG (SENOKOT) TAB PO SCH ×2 (08:34→19:34)
--- NOTE | 2022-12-09 10:04 | Progress Note - Surgery ---
HAILEY PUENTE 12/09/22 1004: Subjective Date Seen by a Provider: December 09, 2022 Time Seen by a Provider: 09:30 Subjective/Events-last exam Ayah, a 62 year old female states that her abdominal pain is still a 5/10, but states it has improved since yesterday and she is able to rest comfortably. Arsenio paredes states she is not nauseated today and has had no vomiting. Patient admits that she has not had a bowel movement yet. Patient states that she walked around her room multiple times yesterday evening and that made her feel better. Patient was grateful that she is able to have ice chips. Review of Systems General: No Chills, No Night Sweats HEENT: No Head Aches, No Visual Changes Pulmonary: No Cough Cardiovascular: No: Chest Pain, Palpitations Gastrointestinal: Abdominal Pain; No: Nausea, Vomiting Genitourinary: No Dysuria, No Frequency Neurological: No: Change in speech, Confusion Focused Exam Lactate Level 12/07/22 21:43: Lactic Acid Level 0.82 Objective Exam Vital Signs Date Time Temp Pulse Resp B/P (MAP) Pulse Ox O2 Delivery O2 Flow Rate FiO2 12/09/22 08:00 Trach Collar 8.00 12/09/22 07:44 36.5 101 18 116/83 (94) 100 Trach Collar 8.00 12/09/22 07:39 97 Trach Collar 8.00 30 12/09/22 07:00 100 12/09/22 03:04 36.3 96 20 115/76 (89) 98 Trach Collar 30.00 8.00 12/09/22 02:41 Trach Collar 8.00 30 12/09/22 01:00 108 12/08/22 23:57 36.3 100 18 113/63 (80) 98 Trach Collar 30.00 8.00 12/08/22 20:00 36.1 100 18 108/59 (75) 97 Trach Collar 8.00 12/08/22 19:55 Trach Collar 8.00 12/08/22 19:20 Trach Collar 8.00 30 12/08/22 19:00 102 12/08/22 16:08 36.2 105 20 125/82 (96) 92 Trach Collar 8.00 12/08/22 13:40 107 12/08/22 11:42 36.2 103 18 98 Trach Collar 8.00 I & O 12/09/22 07:00 Intake Total 3800 ml Output Total 200 ml Balance 3600 ml Capillary Refill : Less Than 3 Seconds General Appearance: No Apparent Distress HEENT: PERRL/EOMI, Moist Mucous Membranes Neck: Full Range of Motion, Non Tender, Supple, Other (tracheostomy in place ) Respiratory: Lungs Clear, No Accessory Muscle Use Cardiovascular: No Murmur, Tachycardia Peripheral Pulses: 3+ Dorsalis Pedis (R), 3+ Left Dors-Pedis (L), 3+ Radial Pulses (R), 3+ Radial Pulses (L) Gastrointestinal: abnormal bowel sounds (hypoactive), guarding, tenderness (epigastrum) Extremity: No Pedal Edema Neurologic/Psychiatric: Alert, Oriented x3 Skin: Warm/Dry Lymphatic: No Adenopathy Results Lab Laboratory Tests 12/09/22 05:12: White Blood Count 10.6, Red Blood Count 4.41, Hemoglobin 11.5, Hematocrit 38, Mean Corpuscular Volume 87, Mean Corpuscular Hemoglobin 26, Mean Corpuscular Hemoglobin Concent 30L, Red Cell Distribution Width 14.9H, Platelet Count 245, Mean Platelet Volume 9.8, Immature Granulocyte % (Auto) 0, Neutrophils (%) (Auto) 76H, Lymphocytes (%) (Auto) 15, Monocytes (%) (Auto) 7, Eosinophils (%) (Auto) 1, Basophils (%) (Auto) 0, Neutrophils # (Auto) 8.1H, Lymphocytes # (Auto) 1.6, Monocytes # (Auto) 0.8, Eosinophils # (Auto) 0.2, Basophils # (Auto) 0.0, Immature Granulocyte # (Auto) 0.0, Sodium Level 144, Potassium Level 3.8, Chloride Level 109H, Carbon Dioxide Level 21, Anion Gap 14, Blood Urea Nitrogen 25H, Creatinine 2.23H, Estimat Glomerular Filtration Rate 25, BUN/Creatinine Ratio 11, Glucose Level 81, Calcium Level 9.0, Corrected Calcium 9.8, Total Bilirubin 1.2H, Aspartate Amino Transf (AST/SGOT) 53H, Alanine Aminotransferase (ALT/SGPT) 60H, Alkaline Phosphatase 135, Total Protein 7.1, Albumin 3.0L Microbiology 12/07/22 Blood Culture - Preliminary, Resulted No growth 12/07/22 Urine Culture - Preliminary, Resulted Culture In Progress Assessment/Plan Assessment/Plan Assessment/Plan Partial small bowel Obstruction Metastatic Endometrial CA with increase LN in abdomen Morbid Obesity Patient abdominal pain has been improving daily since admission, however, patient has not had a bowel movement yet. Would continue ambulation, supplemental O2 and IV fluids. BRENNEN DANIELSON DO 12/09/22 1131: Subjective Time Seen by a Provider: 11:19 Subjective/Events-last exam Pt seen and examined, denies increased pain but still has pain. She denies any flatus or BM. Review of Systems General: No Chills, No Night Sweats Pulmonary: No Cough Cardiovascular: No: Chest Pain, Palpitations Gastrointestinal: No: Nausea, Vomiting, Abdominal Pain Objective Exam General Appearance: No Apparent Distress, Obese HEENT: PERRL/EOMI, Moist Mucous Membranes Neck: Other (tracheostomy in place ) Respiratory: Lungs Clear, No Accessory Muscle Use, No Respiratory Distress Cardiovascular: No Murmur, Tachycardia Gastrointestinal: abnormal bowel sounds (hypoactive), guarding (involuntary), tenderness (epigastrum) Assessment/Plan Assessment/Plan Assessment/Plan Partial small bowel Obstruction Metastatic Endometrial CA with increase LN in abdomen Morbid Obesity Patient abdominal pain has been improving daily since admission, however, patient has not had a bowel movement yet. Would continue ambulation, supplemental O2 and IV fluids. Will order SBFT to rule out complete obstruction Supervisory-Addendum Brief Verification & Attestation Participated in pt care: history, MDM, physical Personally performed: exam, history, MDM, supervision of care Care discussed with: Medical Student Procedures: n/a Verification and Attestation of Medical Student E/M Service A medical student performed and documented this service. I then reviewed and verified all information documented by the medical student and made modifications to such information, when appropriate. I personally performed a physical exam, medical decision making and then discussed any differences between the notes and made revisions as necessary to create one note. Brennen Danielson , 12/09/22 , 11:31 HAILEY PUENTE December 09, 2022 10:04 BRENNEN DANIELSON DO December 09, 2022 11:31
[2022-12-09 11:23] VITALS: BP 122/80
[2022-12-09] MEDS ORDERED: DIATRIZOATE MEGLUM/SODIUM 37% 120 ML (GASTROGRAFIN) PO ONE (12:45)
--- NOTE | 2022-12-09 13:21 | Progress Note - Hospitalist ---
[facility] [place] 12/09/22 1321: Subjective HPI/CC On Admission Date Seen by Provider: December 09, 2022 Time Seen by Provider: 11:00 CC: SBO and UTI Subjective/Events-last exam Pt doing better today although notes she is hungry. She has not had pain this am nor required pain medication. She has had no vomiting in last 24hrs and denies nausea at this time. She has had good UOP but no BM or flatus. She has been ambulating some in room. Surgery hopes to continue managing conservatively but plan to initiate SBFT Focused Exam Lactate Level 12/07/22 21:43: Lactic Acid Level 0.82 Objective Exam Vital Signs Vital Signs Date Time Temp Pulse Resp B/P (MAP) Pulse Ox O2 Delivery O2 Flow Rate FiO2 12/09/22 12:43 95 12/09/22 11:23 36.6 18 122/80 (94) 99 Trach Collar 8.00 12/09/22 07:39 30 Capillary Refill : Less Than 3 Seconds General Appearance: No Apparent Distress, Obese HEENT: PERRL/EOMI, Normal ENT Inspection, Pharynx Normal Neck: Full Range of Motion, Normal Inspection (Tracheostomy in place without redness or swelling), Non Tender, Supple Respiratory: Chest Non Tender, Lungs Clear, Normal Breath Sounds, No Accessory Muscle Use, No Respiratory Distress Cardiovascular: Regular Rate, Rhythm, No Edema, No Gallop, No JVD, No Murmur, Normal Peripheral Pulses Gastrointestinal: Abnormal Bowel Sounds (hypoactive), Tenderness Extremity: Normal Capillary Refill, Normal Inspection, Normal Range of Motion, Non Tender, No Calf Tenderness Skin: Normal Color, Warm/Dry Results/Procedures Lab Laboratory Tests 12/09/22 05:12 Patient resulted labs reviewed. Imaging: Reviewed Imaging Report Assessment/Plan Assessment and Plan Assess & Plan/Chief Complaint SBO - multiple days n/v unable to tolerate liquids or solids - CT abd suggestive of SBO - recent (05/2022) radical hysterectomy for endometrial cancer, high likelihood SBO 2/2 adhesions - no vomiting since admission, no blood in vomit or stool, pt hemodynamically stable, CT did not suggest incarceration - surgery consulted, appreciate recs - continue NPO and supportive fluids - cont pain mngmt - per surgery, concern with lack of BM and flatus, will do SBFT UTI - UA + nitrites and bacteria - given zosyn in ED - cx's pending - cont zosyn - cont IVF ALEKSANDRA - Cr increased to 2.23 - CT demonstrated some hydronephrosis but no nephrolithiasis - probably 2/2 cancer mets - will likely need op f/u with urology for stent evaluation - not urgent at this time - cont IVF and ctm closely Endometrial cancer with mets - Recent radical hysterectomy - multiple reactive lymph nodes on CT abd - scheduled for chemo starting December 15 CORETTA MELLO DO 12/10/22 0525: Supervisory-Addendum Brief Verification & Attestation Participated in pt care: history, MDM, physical Personally performed: exam, history, MDM, supervision of care Care discussed with: Medical Student Procedures: n/a Results interpretation: Verified all documentation Verification and Attestation of Medical Student E/M Service A medical student performed and documented this service in my presence. I reviewed and verified all information documented by the medical student and made modifications to such information, when appropriate. I personally performed the physical exam and medical decision making. Coretta Mello December 10, 2022,05:25 [place] [place] December 09, 2022 13:21 CORETTA MELLO DO December 10, 2022 05:25
--- NOTE | 2022-12-09 13:57 | Occ Therapy Progress Note ---
Therapy Progress Note OT order received, Patient out of room for procedure. OT will attempt at first available opportunity AMBER CHAUDHARY OT December 09, 2022 13:57
--- NOTE | 2022-12-09 14:18 | Physical Therapy Progress Note ---
Therapy Progress Note Patient unavailable due to procedure. PT will begin tomorrow NAZARIO Salvador PT December 09, 2022 14:18
[2022-12-09] MEDS: ONDANSETRON 4 MG/2 ML (SDV) Z0FRAN IV PRN ×2 (16:04→21:53)
[2022-12-09 16:07] VITALS: BP 144/79
[2022-12-09 19:32] VITALS: BP 132/69
[2022-12-09 23:36] VITALS: BP 120/75
[2022-12-10] MEDS ORDERED: ONDANSETRON 4 MG/2 ML (SDV) Z0FRAN IVP ONE (00:45)
[2022-12-10] MEDS: LORazepam INJ 2 MG/ML (ATIVAN) VIAL IVP PRN ×2 (00:51→05:36)
[2022-12-10] MEDS: PIPERACILLIN SODIUM/TAZOBACTAM 4.5 GM in NS (IVPB) 100 ML IV SCH ×3 (03:56→19:54)
[2022-12-10 03:59] VITALS: BP 130/77
[2022-12-10] MEDS: ONDANSETRON 4 MG/2 ML (SDV) Z0FRAN IV PRN ×2 (05:36→11:51)
[2022-12-10 05:55] LABS: EOSINOPHILS % (AUTO) 1 % (0-10); HEMOGLOBIN 11.1 g/dL (11.5-16.0); LYMPHOCYTES % (AUTO) 15 % (12-44)
[2022-12-10 05:57] LABS: BASOPHILS % (AUTO) 0 % (0-10); EOSINOPHILS # (AUTO) 0.1 10^3/uL (0.0-0.3); HEMATOCRIT 37 % (35-52); LYMPHOCYTES # (AUTO) 1.8 10^3/uL (1.0-4.0); MEAN CORPUSCULAR HEMOGLOBIN 26 pg (25-34); MEAN CORPUSCULAR HGB CONC 30 g/dL (32-36); MEAN CORPUSCULAR VOLUME 88 fL (80-99); MEAN PLATELET VOLUME 10.5 fL (9.0-12.2); MONOCYTES # (AUTO) 0.7 10^3/uL (0.0-1.0); MONOCYTES % (AUTO) 5 % (0-12); NEUTROPHILS # (AUTO) 9.5 10^3/uL (1.8-7.8); NEUTROPHILS % (AUTO) 78 % (42-75); PLATELET COUNT 234 10^3/uL (130-400); WHITE BLOOD COUNT 12.1 10^3/uL (4.3-11.0)
[2022-12-10 05:58] LABS: SMEAR SCAN COMMENT YES
[2022-12-10 06:05] LABS: ALBUMIN 3.2 GM/DL (3.2-4.5); POTASSIUM 3.9 MMOL/L (3.6-5.0)
[2022-12-10 06:06] LABS: CALCIUM 9.5 MG/DL (8.5-10.1)
[2022-12-10 06:08] LABS: TOTAL PROTEIN 7.6 GM/DL (6.4-8.2)
[2022-12-10 06:11] LABS: CREATININE SERUM 2.16 MG/DL (0.60-1.30)
[2022-12-10 07:30] VITALS: BP 134/69
--- NOTE | 2022-12-10 07:40 | Progress Note - Surgery ---
HAILEY PUENTE 12/10/22 0740: Subjective Date Seen by a Provider: December 10, 2022 Time Seen by a Provider: 07:20 Subjective/Events-last exam Ayah, a 62 year old female states that overnight she had three episodes of vomiting. Patient states that she is nauseated. Reports her abdominal pain as a 6/10 today, but states she feels the same as yesterday. Patient states that she has not had a bowel movement or passed gas. The patient states that she is still eating her ice chips, which does help her feel better. Review of Systems General: No Chills, No Night Sweats HEENT: No Head Aches, No Visual Changes Pulmonary: No Dyspnea, No Cough Cardiovascular: No: Chest Pain, Palpitations Gastrointestinal: Nausea, Vomiting, Abdominal Pain; No: Diarrhea Genitourinary: No Dysuria, No Frequency Neurological: No: Change in speech, Confusion Focused Exam Lactate Level 12/07/22 21:43: Lactic Acid Level 0.82 Objective Exam Vital Signs Date Time Temp Pulse Resp B/P (MAP) Pulse Ox O2 Delivery O2 Flow Rate FiO2 12/10/22 07:12 Trach Collar 8.00 30 12/10/22 03:59 36.4 97 18 130/77 (94) 99 Trach Collar 30.00 8.00 12/10/22 02:18 Trach Collar 8.00 30 12/10/22 01:00 101 12/09/22 23:36 36.3 89 20 120/75 (90) 97 Trach Collar 30.00 8.00 12/09/22 19:35 Trach Collar 8.00 30 12/09/22 19:32 36.4 95 18 132/69 (90) 97 Trach Collar 8.00 12/09/22 19:00 91 12/09/22 18:52 Trach Collar 8.00 30 12/09/22 16:07 36.5 102 18 144/79 (100) 100 Trach Collar 8.00 12/09/22 12:43 95 12/09/22 11:23 36.6 98 18 122/80 (94) 99 Trach Collar 8.00 12/09/22 08:00 Trach Collar 8.00 12/09/22 07:44 36.5 101 18 116/83 (94) 100 Trach Collar 8.00 12/09/22 07:39 97 Trach Collar 8.00 30 I & O 12/10/22 07:00 Intake Total 1200 ml Output Total 1400 ml Balance -200 ml Capillary Refill : Less Than 3 Seconds General Appearance: No Apparent Distress, Obese HEENT: PERRL/EOMI, Moist Mucous Membranes Neck: Non Tender, Supple, Limited Range of Motion (placement of tracheostomy) Respiratory: Chest Non Tender, Lungs Clear, No Accessory Muscle Use, No Respiratory Distress Cardiovascular: No Edema, No Murmur, Tachycardia Peripheral Pulses: 3+ Dorsalis Pedis (R), 3+ Left Dors-Pedis (L), 3+ Radial Pulses (R), 3+ Radial Pulses (L) Gastrointestinal: soft, abnormal bowel sounds (hypoactive), tenderness (epigastrum) Extremity: Normal Capillary Refill, Non Tender, No Calf Tenderness, No Pedal Edema Neurologic/Psychiatric: Alert, Oriented x3 Skin: Warm/Dry Lymphatic: No Adenopathy Results Lab Laboratory Tests 12/10/22 05:42: White Blood Count 12.1H, Red Blood Count 4.22, Hemoglobin 11.1L, Hematocrit 37, Mean Corpuscular Volume 88, Mean Corpuscular Hemoglobin 26, Mean Corpuscular Hemoglobin Concent 30L, Red Cell Distribution Width 15.0H, Platelet Count 234, Mean Platelet Volume 10.5, Immature Granulocyte % (Auto) 1, Neutrophils (%) (Auto) 78H, Lymphocytes (%) (Auto) 15, Monocytes (%) (Auto) 5, Eosinophils (%) (Auto) 1, Basophils (%) (Auto) 0, Neutrophils # (Auto) 9.5H, Lymphocytes # (Auto) 1.8, Monocytes # (Auto) 0.7, Eosinophils # (Auto) 0.1, Basophils # (Auto) 0.0, Immature Granulocyte # (Auto) 0.1, Percent Immature Platelet Fraction 2.2, Sodium Level 148H, Potassium Level 3.9, Chloride Level 112H, Carbon Dioxide Level 18L, Anion Gap 18H, Blood Urea Nitrogen 26H, Creatinine 2.16H, Estimat Glomerular Filtration Rate 26, BUN/Creatinine Ratio 12, Glucose Level 79, Calcium Level 9.5, Corrected Calcium 10.1, Total Bilirubin 1.0, Aspartate Amino Transf (AST/SGOT) 37H, Alanine Aminotransferase (ALT/SGPT) 51, Alkaline Phosphatase 139H, Total Protein 7.6, Albumin 3.2, Smear Scan YES Microbiology 12/07/22 Blood Culture - Preliminary, Resulted No growth 12/07/22 Urine Culture - Preliminary, Resulted Proteus mirabilis Mixed Bacterial Genie See Comments Assessment/Plan Assessment/Plan Assessment/Plan Partial small bowel Obstruction Metastatic Endometrial CA with increase LN in abdomen Morbid Obesity Patient had episodes of vomiting overnight, but reports her abdominal pain is still the same as yesterday. Patient has not had BM or passed gas. Recommend to continue ambulation, supplemental O2 and IV fluids at this time. BRENNEN DANIELSON DO 12/10/22 1034: Subjective Time Seen by a Provider: 10:16 Subjective/Events-last exam Pt seen and examined, states she feels a little better but still has abdominal pain. Pt still has not had any flatus or BM. Review of Systems Pulmonary: No Dyspnea, No Cough Cardiovascular: No: Chest Pain, Palpitations Gastrointestinal: Nausea, Vomiting, Abdominal Pain Genitourinary: No Dysuria, No Frequency Objective Exam General Appearance: No Apparent Distress, Obese HEENT: PERRL/EOMI, Moist Mucous Membranes Respiratory: Chest Non Tender, Lungs Clear, Normal Breath Sounds, No Accessory Muscle Use, No Respiratory Distress Gastrointestinal: soft, abnormal bowel sounds (hypoactive), tenderness (epigastrum) Extremity: Non Tender, No Calf Tenderness Neurologic/Psychiatric: Alert, Oriented x3 Assessment/Plan Assessment/Plan Assessment/Plan Partial small bowel Obstruction Metastatic Endometrial CA with increase LN in abdomen Morbid Obesity Patient had episodes of vomiting overnight, but reports her abdominal pain is still the same as yesterday. Patient has not had BM or passed gas. Recommend to continue ambulation, supplemental O2 and IV fluids at this time. I reviewed the SBFT and I think I see contrast in Ascending colon, I will go over with Radiologist. My plan would still be to wait, increase ambulation, chew gum and try to get some return of bowel function. If no improvement would then have to discuss options with pt; Surgery, transfer for surgery or even hospice. Supervisory-Addendum Brief Verification & Attestation Participated in pt care: history, MDM, physical Personally performed: exam, history, MDM, supervision of care Care discussed with: Medical Student Procedures: n/a Verification and Attestation of Medical Student E/M Service A medical student performed and documented this service. I then reviewed and verified all information documented by the medical student and made modifications to such information, when appropriate. I personally performed a physical exam, medical decision making and then discussed any differences between the notes and made revisions as necessary to create one note. Brennen Danielson , 12/10/22 , 10:34 HAILEY PUENTE December 10, 2022 07:40 BRENNEN DANIELSON DO December 10, 2022 10:34
--- NOTE | 2022-12-10 08:50 | Diagnostic Imaging Report ---
INDICATION: Small bowel obstruction. Patient was administered 120 mL gastrografin contrast mixed with 120 mL water. Serial radiographs of the abdomen were then obtained. Preliminary radiograph of the abdomen does show some moderate gaseous distention of small bowel loops in the central abdomen. There is a surgical clip in the gallbladder fossa. No convincing evidence of contrast within the colon is seen on the 19 hour film, features are highly suggestive of small bowel obstruction. IMPRESSION: Findings suggestive of small bowel obstruction. Loops in the central abdomen on the postingestion radiographs. Dictated by: Dictated on workstation # [id number]
[2022-12-10] MEDS: DOCUSATE SODIUM 100 MG (COLACE) CAP PO SCH ×2 (09:00→20:47)
[2022-12-10] MEDS: SENNOSIDES 8.6 MG (SENOKOT) TAB PO SCH ×2 (09:00→20:47)
[2022-12-10] MEDS: ENOXAPARIN 60 MG/0.6 ML (LOVENOX) SYR SC SCH ×2 (09:28→19:54)
--- NOTE | 2022-12-10 11:01 | Physical Therapy Evaluation ---
PT Evaluation-General Medical Diagnosis Admission Date December 07, 2022 at 22:31 Medical Diagnosis: endrometrial cancer/SBO Onset Date: December 07, 2022 Therapy Diagnosis Therapy Diagnosis: debility Height/Weight Height (Feet): 5 Height (Inches): 5.00 Weight (Pounds): 335 Weight (Ounces): 0.4 Precautions Precautions/Isolations: Fall Prevention, Standard Precautions Referral Physician: Maged Reason for Referral: Evaluation/Treatment Medical History Pertinent Medical History: COPD, HTN Additional Medical History cancer Current History ER with epigastric pain Reviewed History: Yes Social History Home: Apartment Current Living Status: Alone Prior Prior Level of Function SCALE: Activities may be completed with or without assistive devices. 1-Ykhgnhoois-qpjpodx completes the activity by him/herself with no assistance from a helper. 5-Set-up or Clean-up Assistance-helper sets up or cleans up; patient completes activity. [place] assists only prior to or following the activity. 4-Supervision or Touching Assistance-helper provides verbal cues and/or touching/steadying and/or contact guard assistance as patient completes activity. Assistance may be provided throughout the activity or intermittently. 3-Partial/Moderate Assistance-helper does LESS THAN HALF the effort. [place] lifts, holds or supports trunk or limbs, but provides less than half the effort. 2-Substantial/Maximal Assistance-helper does MORE THAN HALF the effort. [place] lifts or holds trunk or limbs and provides more than half the effort. 9-Kewpdjham-mtwecd does ALL the effort. Patient does none of the effort to complete the activity. Or, the assistance of 2 or more helpers is required for the patient to complete the activity. If activity was not attempted, code reason: 7-Patient Refused. 9-Not Applicable-not attempted and the patient did not perform the activity before the current illness, exacerbation or injury. 10-Not Attempted due to Environmental Limitations-(lack of equipment, weather restraints, etc.). 88-Not Attempted due to Medical Conditions or Safety Concerns. Bed Mobility: 6 Transfers (B,C,W/C): 6 Gait: 6 Indoor Mobility (Ambulation): Independent Stairs: Not [place] Prior Devices Use: Manual wheelchair, Motorized scooter, Walker PT Evaluation-Current Subjective Patient agrees to PT. Objective Patient Orientation: Normal For Age Attachments: Oxygen, IV ROM/Strength ROM Lower Extremities bilateral LE WFL Strength Lower Extremities 4/5 grossly bilateral LE all planes Integumentary/Posture Bowel Incontinence: No Bladder Incontinence: No Posture WFL Neuromuscular (Tone, Coordination, Reflexes) grossly intact Sensory Vision: Functional Hearing: Functional Transfers Sit to Lying (QC): 6 Lying to Sitting/Side of Bed(Q: 6 Sit to Stand (QC): 6 Gait Mode of Locomotion: Walk Anticipated Mode of Locomotion: Walk Walk 10 feet (QC): 6 Walk 50 ft with 2 Turns(QC): 6 Walk 150 ft (QC): 6 Distance: >500' Gait Assistive Device: FWW Comments/Gait Description safe and functional with no deviation Balance Sitting Static: Normal Sitting Dynamic: Normal Standing Static: Normal Standing Dynamic: Normal Assessment/Needs Patient is currently at independent [facility] with all gross motor skills safely and does not require skilled PT intervention. Rehab Potential: Fair PT Plan Treatment/Plan Treatment Plan: Discontinue PT, goals met Treatment Duration: December 10, 2022 Frequency: 1 time per week Estimated Hrs Per Day: .25 hour per day Patient and/or Family Agrees t: Yes Time Time In: 855 Time Out: 910 DATE: December 10, 2022 Total Billed Treatment Time: 15 Total Billed Treatment 1 visit [facility] 15 min NAZARIO ELIAS PT December 10, 2022 11:01
--- NOTE | 2022-12-10 11:24 | Occ Therapy Progress Note ---
Therapy Progress Note OT observed bronwynqamar ambulating in halls w/ FWW w/ PT. Interview w/ patent determines no OT needs at this time. Please discontinue OT order. AMBER CHAUDHARY OT December 10, 2022 11:24
[2022-12-10] MEDS: NS IV 1000 ML 1,000 ML IV SCH ×2 (11:45→21:18)
[2022-12-10 12:00] VITALS: BP 156/81
--- NOTE | 2022-12-10 12:10 | Progress Note - Hospitalist ---
[place] 12/10/22 1210: Subjective HPI/CC On Admission Date Seen by Provider: December 10, 2022 Time Seen by Provider: 10:30 CC: SBO and UTI Subjective/Events-last exam Pt doing okay this am. After administration of gastrografin for SBFT she did not have flatus or BM and had 3 episodes of vomiting. KUB demonstrated no evidence of contrast in colon. She endorses mild pain in RUQ but has not needed pain medicaitons. She has been up and working with PT. In discussion of pt's partial ureter obstruction, she reports that she met with her oncologist on 12/06 and her PET scan results demonstrated no cancerous lesions in her abdominal cavity, obstruction thus more likely 2/2 radiation or surgical scarring. Focused Exam Lactate Level 12/07/22 21:43: Lactic Acid Level 0.82 Objective Exam Vital Signs Vital Signs Date Time Temp Pulse Resp B/P (MAP) Pulse Ox O2 Delivery O2 Flow Rate FiO2 12/10/22 08:40 Trach Collar 8.00 30 12/10/22 07:30 36.5 104 20 134/69 (90) 97 Capillary Refill : Less Than 3 Seconds General Appearance: No Apparent Distress, Obese HEENT: PERRL/EOMI, Normal ENT Inspection, Pharynx Normal Neck: Full Range of Motion, Normal Inspection (tracheostomy in place), Non Tender, Supple Respiratory: Chest Non Tender, Lungs Clear, Normal Breath Sounds, No Accessory Muscle Use, No Respiratory Distress Cardiovascular: Regular Rate, Rhythm, No Edema, No Gallop, No JVD, No Murmur, Normal Peripheral Pulses Gastrointestinal: Abnormal Bowel Sounds (hypoactive), Tenderness (RUQ) Extremity: Normal Capillary Refill, Normal Inspection, Normal Range of Motion, Non Tender, No Calf Tenderness Skin: Normal Color, Warm/Dry Results/Procedures Lab Laboratory Tests 12/10/22 05:42 Patient resulted labs reviewed. Imaging: Reviewed Imaging Report Assessment/Plan Assessment and Plan Assess & Plan/Chief Complaint SBO - multiple days n/v unable to tolerate liquids or solids - CT abd suggestive of SBO - recent (05/2022) radical hysterectomy for endometrial cancer, high likelihood SBO 2/2 adhesions - no vomiting since admission (except post gastrografin administration), no blood in vomit or stool, pt hemodynamically stable, CT did not suggest incarceration - surgery consulted and managing, appreciate recs - continue NPO and supportive fluids - cont pain mngmt - surgery to evaluate SBFT and determine need for surgery UTI - UA + nitrites and bacteria - ucx +ve for Proteus mirabilis - cont zosyn - cont IVF - narrow abx as indicated by susceptibilities ALEKSANDRA - Cr down to 2.16 (12/10) - CT demonstrated some hydronephrosis but no nephrolithiasis - probably 2/2 surgical or radiation induced scarring - will likely need op f/u with urology for stent evaluation - not urgent at this time - cont IVF and ctm closely Endometrial cancer with mets - Recent radical hysterectomy - multiple reactive lymph nodes on CT abd - scheduled for chemo starting December 15 CORETTA MELLO DO 12/10/222122: Supervisory-Addendum Brief Verification & Attestation Participated in pt care: history, MDM, physical Personally performed: exam, history, MDM, supervision of care Care discussed with: Medical Student Procedures: n/a Results interpretation: Verified all documentation Verification and Attestation of Medical Student E/M Service A medical student performed and documented this service in my presence. I reviewed and verified all information documented by the medical student and made modifications to such information, when appropriate. I personally performed the physical exam and medical decision making. Coretta Mello, December 10, 2022,21:22 [place] December 10, 2022 12:10 CORETTA MELLO DO December 10, 2022 21:23
[2022-12-10] MEDS: HYDROmorphone 2 MG/ML VIAL (DILAUDID) IV PRN (12:16)
[2022-12-10] MEDS ORDERED: ONDANSETRON 4 MG/2 ML (SDV) Z0FRAN IVP NR (14:30)
[2022-12-10 15:09] VITALS: BP 132/75
[2022-12-10] MEDS: RT-ALBUTEROL SULF 2.5 MG/3 ML PRE-MIX VIAL INH PRN (15:33)
--- NOTE | 2022-12-10 16:46 | Diagnostic Imaging Report ---
INDICATION: Bowel obstruction. Follow-up. COMPARISON: 12/09/2022. FINDINGS: Two frontal radiographic views of the abdomen were obtained and again show multiple contrast-filled dilated loops of small bowel. There does appear to be some contrast now within the right colon. There is no large collection of free intraperitoneal air. Osseous structures show age-related degenerative changes. IMPRESSION: 1. There does appear to be interval migration of contrast into the right colon, although multiple abnormally dilated loops of small bowel persist. Findings are suggestive of possible partial obstruction. Dictated by: Dictated on workstation # [id number]
--- NOTE | 2022-12-10 19:30 | Physician Query Clarification ---
Physician Query-General Query to Physician: Clinical Validation Clarification Dr Alexey Lynne Sepsis has been documented once in the medical record as the reason for inpatient admission, with no further documentation. After study, has Sepsis been ruled out? If it has been ruled out, please document Sepsis ruled out" in the progress notes and/or discharge summary. Yes/Agreed, Sepsis ruled out/is not clinically valid Not agreed, Sepsis has not been ruled out/is clinically valid* *Please document the clinical evidence supportive of this diagnosis (even if now resolved) in the Progress Notes and Discharge Summary Other, with explanation of the clinical findings Clinically undetermined, no explanation for the clinical findings Additional information: Admitted with SBO, UTI, and ALEKSANDRA, Hx of endometrial cancer with mets, Admission VS/LABS: HR 122, RR 18, BP 119/84, SpO2 94% sat on room air, T 36.0, WBC 13.8, Lactic acid 0.82 Treatment: ER: normal saline 1 L, Zosyn IV, In responding to this query, please exercise your independent professional judgment. The purpose of this communication is to more accurately reflect the complexity of your patients condition. The fact that a question is asked does not imply that any particular answer is desired or expected. Thank you for your timely response to this clarification. Emily Gusman MSN, RN Clinical Firearms Assembly Supervisor [email or web address] PHYSICIAN RESPONSE: Based on the clinical findings in the record, please respond to the query above on this document as an addendum. Physician Response: Physician Response no sepsis If you have questions please contact: Handmade Tile Artist: Ext: Thank you for your time and cooperation. Clinical Firearms Assembly Supervisor/Handmade Tile Artist This is a permanent part of the medical record EMILY GUSMAN December 10, 2022 19:30 ROBINA LYNNE DO December 10, 2022 21:04
[2022-12-10 19:38] VITALS: BP 132/92
[2022-12-11 00:01] VITALS: BP 123/76
[2022-12-11] MEDS: NS IV 1000 ML 1,000 ML IV SCH ×2 (00:05→10:40)
[2022-12-11 03:51] VITALS: BP 131/80
[2022-12-11] MEDS: HYDROmorphone 2 MG/ML VIAL (DILAUDID) IV PRN ×2 (03:52→20:56)
[2022-12-11] MEDS: PIPERACILLIN SODIUM/TAZOBACTAM 4.5 GM in NS (IVPB) 100 ML IV SCH ×3 (03:53→20:14)
[2022-12-11 06:31] LABS: BASOPHILS % (AUTO) 0 % (0-10); EOSINOPHILS # (AUTO) 0.1 10^3/uL (0.0-0.3); EOSINOPHILS % (AUTO) 1 % (0-10); HEMATOCRIT 36 % (35-52); HEMOGLOBIN 11.1 g/dL (11.5-16.0); LYMPHOCYTES # (AUTO) 1.9 10^3/uL (1.0-4.0); LYMPHOCYTES % (AUTO) 17 % (12-44); MEAN CORPUSCULAR HEMOGLOBIN 27 pg (25-34); MEAN CORPUSCULAR HGB CONC 31 g/dL (32-36); MEAN CORPUSCULAR VOLUME 86 fL (80-99); MEAN PLATELET VOLUME 10.6 fL (9.0-12.2); MONOCYTES # (AUTO) 0.8 10^3/uL (0.0-1.0); MONOCYTES % (AUTO) 7 % (0-12); NEUTROPHILS # (AUTO) 8.6 10^3/uL (1.8-7.8); NEUTROPHILS % (AUTO) 75 % (42-75); PLATELET COUNT 353 10^3/uL (130-400); WHITE BLOOD COUNT 11.6 10^3/uL (4.3-11.0)
[2022-12-11 06:39] LABS: ALBUMIN 3.2 GM/DL (3.2-4.5)
[2022-12-11 06:40] LABS: CALCIUM 9.5 MG/DL (8.5-10.1)
[2022-12-11 06:42] LABS: TOTAL PROTEIN 7.5 GM/DL (6.4-8.2)
[2022-12-11 06:43] LABS: BILIRUBIN,TOTAL 0.9 MG/DL (0.1-1.0)
[2022-12-11 06:45] LABS: CREATININE SERUM 2.12 MG/DL (0.60-1.30)
--- NOTE | 2022-12-11 06:53 | Progress Note - Hospitalist ---
Subjective HPI/CC On Admission Date Seen by Provider: December 11, 2022 Time Seen by Provider: 11:00 CC: SBO and UTI Subjective/Events-last exam Had a small BM Decreased pain Monitoring closely Labs reviewed Review of Systems Gastrointestinal: Abdominal Pain Objective Exam Vital Signs Vital Signs Date Time Temp Pulse Resp B/P (MAP) Pulse Ox O2 Delivery O2 Flow Rate FiO2 12/11/22 11:27 36.2 90 18 141/79 (99) 98 Trach Collar 30.00 8.00 12/11/22 10:03 30 Capillary Refill : Less Than 3 Seconds General Appearance: No Apparent Distress, WD/WN, Chronically ill Respiratory: Lungs Clear, Normal Breath Sounds Cardiovascular: Regular Rate, Rhythm Neurologic/Psychiatric: Alert, Oriented x3 Results/Procedures Lab Laboratory Tests 12/11/22 06:20 Patient resulted labs reviewed. Imaging: Reviewed Imaging Report Assessment/Plan Assessment and Plan Assess & Plan/Chief Complaint Assess & Plan/Chief Complaint SBO - multiple days n/v unable to tolerate liquids or solids - CT abd suggestive of SBO - recent (05/2022) radical hysterectomy for endometrial cancer, high likelihood SBO 2/2 adhesions - no vomiting since admission (except post gastrografin administration), no blood in vomit or stool, pt hemodynamically stable, CT did not suggest incarceration - surgery consulted and managing, appreciate recs - continue NPO and supportive fluids - cont pain mngmt - surgery to evaluate SBFT and determine need for surgery UTI - UA + nitrites and bacteria - ucx +ve for Proteus mirabilis - cont zosyn - cont IVF - narrow abx as indicated by susceptibilities ALEKSANDRA - Cr down to 2.16 (5/5) - CT demonstrated some hydronephrosis but no nephrolithiasis - probably 2/2 surgical or radiation induced scarring - will likely need op f/u with urology for stent evaluation - not urgent at this time - cont IVF and ctm closely Endometrial cancer with mets - Recent radical hysterectomy - multiple reactive lymph nodes on CT abd - scheduled for chemo starting December 15 ROBINA MELLO DO December 11, 2022 06:53
[2022-12-11 07:34] VITALS: BP 151/84
[2022-12-11] MEDS: ENOXAPARIN 60 MG/0.6 ML (LOVENOX) SYR SC SCH ×2 (08:15→20:14)
[2022-12-11] MEDS: DOCUSATE SODIUM 100 MG (COLACE) CAP PO SCH ×2 (08:15→20:14)
[2022-12-11] MEDS: SENNOSIDES 8.6 MG (SENOKOT) TAB PO SCH ×2 (08:16→20:14)
--- NOTE | 2022-12-11 09:14 | Progress Note - Surgery ---
HAILEY PUENTE 12/11/22 0914: Subjective Date Seen by a Provider: December 11, 2022 Time Seen by a Provider: 08:30 Subjective/Events-last exam Patient reports 5/10 abdominal pain today and vomiting overnight. No nausea. No BM or passing gas. Patient reports she is still eating ice chips. Reports she is still ambulating to the commode and trying to walk around her room. Review of Systems General: No Chills, No Night Sweats HEENT: No Head Aches, No Visual Changes Pulmonary: No Dyspnea, No Cough Cardiovascular: No: Chest Pain, Palpitations Gastrointestinal: Abdominal Pain, Constipation; No: Nausea, Vomiting Genitourinary: No Dysuria, No Frequency Musculoskeletal: No: neck pain Neurological: No: Change in speech, Confusion Objective Exam Vital Signs Date Time Temp Pulse Resp B/P (MAP) Pulse Ox O2 Delivery O2 Flow Rate FiO2 12/11/22 08:53 98 Trach Collar 8.00 30 12/11/22 07:38 Trach Collar 8.00 30 12/11/22 07:34 36.4 88 20 151/84 (106) 98 Trach Collar 30.00 8.00 12/11/22 07:22 98 Trach Collar 6.00 30 12/11/22 03:51 36.0 92 20 131/80 (97) 96 Trach Collar 6.00 12/11/22 03:06 92 Trach Collar 6.00 30 12/11/22 00:01 36.3 98 20 123/76 (92) 95 Trach Collar 6.00 12/10/22 21:35 94 Trach Collar 8.00 30 12/10/22 19:55 Trach Collar 6.00 30 12/10/22 19:38 36.5 100 22 132/92 (105) 99 Trach Collar 6.00 12/10/22 18:38 85 Trach Collar 8.00 30 12/10/22 15:34 Trach Collar 8.00 30 12/10/22 15:09 36.8 103 20 132/75 (94) 92 Trach Collar 6.00 12/10/22 12:00 36.5 101 20 156/81 (106) 94 Trach Collar 6.00 12/10/22 11:30 Trach Collar 8.00 30 I & O 12/11/22 07:00 Intake Total 1340 ml Output Total 1900 ml Balance -560 ml Capillary Refill : Less Than 3 Seconds General Appearance: No Apparent Distress, Obese HEENT: PERRL/EOMI, Moist Mucous Membranes Neck: Normal Inspection (tracheostomy in place), Non Tender, Supple Respiratory: Chest Non Tender, Lungs Clear, Normal Breath Sounds, No Accessory Muscle Use, No Respiratory Distress Cardiovascular: Regular Rate, Rhythm, No Murmur Peripheral Pulses: 3+ Dorsalis Pedis (R), 3+ Left Dors-Pedis (L), 3+ Radial Pulses (R), 3+ Radial Pulses (L) Gastrointestinal: soft, abnormal bowel sounds (hypoactive), tenderness (epigastrum) Extremity: Normal Capillary Refill, Normal Inspection, No Calf Tenderness, No Pedal Edema Neurologic/Psychiatric: Alert, Oriented x3 Skin: Normal Color, Warm/Dry Results Lab Laboratory Tests 12/11/22 06:20: White Blood Count 11.6H, Red Blood Count 4.16, Hemoglobin 11.1L, Hematocrit 36, Mean Corpuscular Volume 86, Mean Corpuscular Hemoglobin 27, Mean Corpuscular Hemoglobin Concent 31L, Red Cell Distribution Width 15.2H, Platelet Count 353, Mean Platelet Volume 10.6, Immature Granulocyte % (Auto) 1, Neutrophils (%) (Auto) 75, Lymphocytes (%) (Auto) 17, Monocytes (%) (Auto) 7, Eosinophils (%) (Auto) 1, Basophils (%) (Auto) 0, Neutrophils # (Auto) 8.6H, Lymphocytes # (Auto) 1.9, Monocytes # (Auto) 0.8, Eosinophils # (Auto) 0.1, Basophils # (Auto) 0.0, Immature Granulocyte # (Auto) 0.1, Sodium Level 153H, Potassium Level 4.0, Chloride Level 116H, Carbon Dioxide Level 21, Anion Gap 16H, Blood Urea Nitrogen 25H, Creatinine 2.12H, Estimat Glomerular Filtration Rate 26, BUN/Creatinine Ratio 12, Glucose Level 77, Calcium Level 9.5, Corrected Calcium 10.1, Total Bilirubin 0.9, Aspartate Amino Transf (AST/SGOT) 33, Alanine Aminotransferase (ALT/SGPT) 45, Alkaline Phosphatase 131, Total Protein 7.5, Albumin 3.2 Microbiology 12/07/22 Blood Culture - Preliminary, Resulted No growth 12/07/22 Urine Culture - Final, Complete Proteus mirabilis Mixed Bacterial Genie See Comments Assessment/Plan Assessment/Plan Assessment/Plan Partial small bowel Obstruction Metastatic Endometrial CA with increase LN in abdomen Morbid Obesity Patient expressed frustration over being inpatient for four days with no progress. Did encourage ambulation to help have BM or pass gas. Recommend to continue supplemental O2 and IV fluids at this time. . BOYD DANIELSON DO 12/11/22 1250: Subjective Time Seen by a Provider: 12:21 Subjective/Events-last exam Pt seen and examined, she is very frustrated that "nothing is going on". Nurse told me just before I saw pt that she had small BM. She denies nausea, but stated she did have some vomiting over night. Review of Systems Pulmonary: No Dyspnea, No Cough Cardiovascular: No: Chest Pain, Palpitations Gastrointestinal: Nausea, Vomiting, Abdominal Pain Objective Exam General Appearance: No Apparent Distress, Obese (morbidly) HEENT: PERRL/EOMI, Moist Mucous Membranes Neck: Other (tracheostomy) Respiratory: Lungs Clear, Normal Breath Sounds, No Accessory Muscle Use, No Respiratory Distress Cardiovascular: Regular Rate, Rhythm, No Murmur Gastrointestinal: soft (??better than yesterday), abnormal bowel sounds (hypoactive), tenderness (epigastric area) Extremity: No Calf Tenderness Neurologic/Psychiatric: Alert, Oriented x3 Assessment/Plan Assessment/Plan Assessment/Plan Partial small bowel Obstruction - secondary to diagnosis below, possibly improving Metastatic Endometrial CA with increase LN in abdomen Morbid Obesity Patient expressed frustration over being inpatient for four days with no progress. Did encourage ambulation to help have BM or pass gas. Recommend to continue supplemental O2 and IV fluids at this time. I talked to her about her options; continue current, surgery or go home. Surgery is not a good option because it is only temporary and she may not even be a surgical candidate. Going home risks her coming right back if she gets worse. I told her hopefully we are starting to get some movement with her bowels, because she had a BM. It is still just a wait and see, she seemed to understand and had no other questions. Supervisory-Addendum Brief Verification & Attestation Participated in pt care: history, MDM, physical Personally performed: exam, history, MDM, supervision of care Care discussed with: Medical Student Procedures: n/a Verification and Attestation of Medical Student E/M Service A medical student performed and documented this service. I then reviewed and verified all information documented by the medical student and made modifications to such information, when appropriate. I personally performed a physical exam, medical decision making and then discussed any differences between the notes and made revisions as necessary to create one note. Boyd Danielson , 12/11/22 , 12:50 [place]ILEY PU[place] December 11, 2022 09:14 BOYD DANIELSON DO December 11, 2022 12:50
[2022-12-11 11:27] VITALS: BP 141/79
[2022-12-11] MEDS: 1/2 NS IV SOLUTION 1,000 ML IV SCH (14:35)
[2022-12-11] MEDS: RT-ALBUTEROL SULF 2.5 MG/3 ML PRE-MIX VIAL INH PRN (15:45)
[2022-12-11 16:01] VITALS: BP 143/98
[2022-12-11] MEDS: ONDANSETRON 4 MG/2 ML (SDV) Z0FRAN IV PRN (20:14)
[2022-12-11 20:25] VITALS: BP 142/92
[2022-12-12] VITALS (8 sets, daily range): BP systolic 129–154; BP diastolic 80–96
[2022-12-12] MEDS: 1/2 NS IV SOLUTION 1,000 ML IV SCH ×3 (01:45→20:46)
[2022-12-12] MEDS: PIPERACILLIN SODIUM/TAZOBACTAM 4.5 GM in NS (IVPB) 100 ML IV SCH ×3 (03:01→20:46)
[2022-12-12] MEDS: HYDROmorphone 2 MG/ML VIAL (DILAUDID) IV PRN ×2 (03:01→23:28)
[2022-12-12 05:19] LABS: BASOPHILS % (AUTO) 0 % (0-10); EOSINOPHILS # (AUTO) 0.1 10^3/uL (0.0-0.3); EOSINOPHILS % (AUTO) 1 % (0-10); HEMATOCRIT 37 % (35-52); HEMOGLOBIN 10.9 g/dL (11.5-16.0); LYMPHOCYTES # (AUTO) 1.3 10^3/uL (1.0-4.0); LYMPHOCYTES % (AUTO) 15 % (12-44); MEAN CORPUSCULAR HEMOGLOBIN 26 pg (25-34); MEAN CORPUSCULAR HGB CONC 30 g/dL (32-36); MEAN CORPUSCULAR VOLUME 86 fL (80-99); MONOCYTES # (AUTO) 0.5 10^3/uL (0.0-1.0); MONOCYTES % (AUTO) 6 % (0-12); NEUTROPHILS # (AUTO) 6.3 10^3/uL (1.8-7.8); NEUTROPHILS % (AUTO) 77 % (42-75); PLATELET COUNT 269 10^3/uL (130-400); WHITE BLOOD COUNT 8.2 10^3/uL (4.3-11.0)
[2022-12-12 05:28] LABS: ALBUMIN 3.1 GM/DL (3.2-4.5); POTASSIUM 3.8 MMOL/L (3.6-5.0)
[2022-12-12 05:29] LABS: CALCIUM 9.3 MG/DL (8.5-10.1)
[2022-12-12 05:31] LABS: TOTAL PROTEIN 7.6 GM/DL (6.4-8.2)
[2022-12-12 05:34] LABS: CREATININE SERUM 1.99 MG/DL (0.60-1.30)
--- NOTE | 2022-12-12 07:02 | Progress Note - Hospitalist ---
Subjective HPI/CC On Admission Date Seen by Provider: December 12, 2022 Time Seen by Provider: 11:00 CC: SBO and UTI Subjective/Events-last exam Nausea and vomiting has recurred No pain reported Labs improved Thinks she is overloaded with fluid so 1 dose of Lasix given at her request Review of Systems General: Fatigue, Malaise Objective Exam Vital Signs Vital Signs Date Time Temp Pulse Resp B/P (MAP) Pulse Ox O2 Delivery O2 Flow Rate FiO2 12/12/22 11:25 36.3 99 20 137/94 (108) 97 Trach Collar 30.00 8.00 12/12/22 11:01 30 Capillary Refill : Less Than 3 Seconds General Appearance: No Apparent Distress, WD/WN, Chronically ill Respiratory: Lungs Clear, Normal Breath Sounds Cardiovascular: Regular Rate, Rhythm Neurologic/Psychiatric: Alert, Oriented x3, Depressed Affect Results/Procedures Lab Laboratory Tests 12/12/22 05:10 Patient resulted labs reviewed. Imaging: Reviewed Imaging Report Assessment/Plan Assessment and Plan Assess & Plan/Chief Complaint Assess & Plan/Chief Complaint SBO - multiple days n/v unable to tolerate liquids or solids - CT abd suggestive of SBO - recent (05/2022) radical hysterectomy for endometrial cancer, high likelihood SBO 2/2 adhesions - no vomiting since admission (except post gastrografin administration), no blood in vomit or stool, pt hemodynamically stable, CT did not suggest incarceration - surgery consulted and managing, appreciate recs - continue NPO and supportive fluids - cont pain mngmt - surgery to evaluate SBFT and determine need for surgery UTI - UA + nitrites and bacteria - ucx +ve for Proteus mirabilis - cont zosyn - cont IVF - narrow abx as indicated by susceptibilities ALEKSANDRA - Cr down to 2.16 (/) - CT demonstrated some hydronephrosis but no nephrolithiasis - probably 2/2 surgical or radiation induced scarring - will likely need op f/u with urology for stent evaluation - not urgent at this time - cont IVF and ctm closely Endometrial cancer with mets - Recent radical hysterectomy - multiple reactive lymph nodes on CT abd - scheduled for chemo starting December 15 ROBINA MELLO DO December 12, 2022 06:53
[2022-12-12] MEDS: SENNOSIDES 8.6 MG (SENOKOT) TAB PO SCH ×2 (07:55→20:46)
--- NOTE | 2022-12-12 08:16 | Progress Note - Surgery ---
HAILEY PUENTE 12/12/22 0816: Subjective Date Seen by a Provider: December 12, 2022 Time Seen by a Provider: 08:00 Subjective/Events-last exam patient admits to two episodes of vomiting in the last 24 hours (around dinner last night and around midnight). Currently, patient reports no nausea. Describes her abdominal pain as located all over the abdomen. States the abdominal pain is crampy and does not radiate. States that the pain comes and goes throughout the day. Patient reports no bowel movement since yesterday and has not passed gas since then. Review of Systems General: No Chills, No Night Sweats HEENT: No Head Aches, No Visual Changes Pulmonary: No Dyspnea, No Cough Cardiovascular: No: Chest Pain, Palpitations Gastrointestinal: Vomiting (dinner yesterday and midnight), Abdominal Pain (crampy); No: Nausea Genitourinary: No Dysuria, No Frequency Musculoskeletal: No: neck pain, shoulder pain Neurological: No: Change in speech, Confusion Objective Exam Vital Signs Date Time Temp Pulse Resp B/P (MAP) Pulse Ox O2 Delivery O2 Flow Rate FiO2 12/12/22 03:10 36.1 89 18 129/80 (96) 94 Trach Collar 30.00 8.00 12/12/22 00:15 36.9 87 18 136/84 (101) 95 Trach Collar 30.00 8.00 12/11/22 21:48 97 Trach Collar 8.00 30 12/11/22 20:25 36.4 98 18 142/92 (109) 93 Trach Collar 30.00 8.00 12/11/22 20:00 Trach Collar 6.00 30 12/11/22 16:01 36.3 99 18 143/98 (113) 97 Trach Collar 30.00 8.00 12/11/22 15:45 99 Trach Collar 8.00 30 12/11/22 11:27 36.2 90 18 141/79 (99) 98 Trach Collar 30.00 8.00 12/11/22 10:03 100 Trach Collar 8.00 30 12/11/22 08:53 98 Trach Collar 8.00 30 I & O 12/12/22 07:00 Intake Total 2830 ml Balance 2830 ml Capillary Refill : Less Than 3 Seconds General Appearance: No Apparent Distress HEENT: PERRL/EOMI, Moist Mucous Membranes Neck: Other (tracheostomy) Respiratory: Lungs Clear, Normal Breath Sounds, No Respiratory Distress Cardiovascular: Regular Rate, Rhythm, No Murmur Peripheral Pulses: 3+ Dorsalis Pedis (R), 3+ Left Dors-Pedis (L), 3+ Radial Pulses (R), 3+ Radial Pulses (L) Gastrointestinal: soft (better than yesterday), abnormal bowel sounds (hypoactive), tenderness (epigastric and hypogastric area to deep palpation) Extremity: No Calf Tenderness, No Pedal Edema Neurologic/Psychiatric: Alert, Oriented x3 Skin: Normal Color, Warm/Dry Results Lab Laboratory Tests 12/12/22 05:10: White Blood Count 8.2, Red Blood Count 4.28, Hemoglobin 10.9L, Hematocrit 37, Mean Corpuscular Volume 86, Mean Corpuscular Hemoglobin 26, Mean Corpuscular Hemoglobin Concent 30L, Red Cell Distribution Width 15.2H, Platelet Count 269, Mean Platelet Volume 10.0, Immature Granulocyte % (Auto) 0, Neutrophils (%) (Auto) 77H, Lymphocytes (%) (Auto) 15, Monocytes (%) (Auto) 6, Eosinophils (%) (Auto) 1, Basophils (%) (Auto) 0, Neutrophils # (Auto) 6.3, Lymphocytes # (Auto) 1.3, Monocytes # (Auto) 0.5, Eosinophils # (Auto) 0.1, Basophils # (Auto) 0.0, Immature Granulocyte # (Auto) 0.0, Sodium Level 149H, Potassium Level 3.8, Chloride Level 114H, Carbon Dioxide Level 23, Anion Gap 12, Blood Urea Nitrogen 22H, Creatinine 1.99H, Estimat Glomerular Filtration Rate 28, BUN/Creatinine Ratio 11, Glucose Level 108H, Calcium Level 9.3, Corrected Calcium 10.0, Total Bilirubin 1.0, Aspartate Amino Transf (AST/SGOT) 55H, Alanine Aminotransferase (ALT/SGPT) 57H, Alkaline Phosphatase 129, Total Protein 7.6, Albumin 3.1L Microbiology 12/07/22 Blood Culture - Preliminary, Resulted No growth 12/07/22 Urine Culture - Final, Complete Proteus mirabilis Mixed Bacterial Genie See Comments Assessment/Plan Assessment/Plan Assessment/Plan Partial small bowel Obstruction - secondary to diagnosis below, possibly improving Metastatic Endometrial CA with increase LN in abdomen Morbid Obesity Patient encouraged ambulation to continue to have a bowel movements. Had BM yesterday, but none since. Recommend to continue supplemental O2 and IV fluids at this time. . BOYD DANIELSON DO 12/12/22 1205: Subjective Time Seen by a Provider: 11:41 Subjective/Events-last exam Pt seen and examined, she is sitting up in chair....just had a large amount of bilious vomiting; which I saw in bucket. She states "I vomit and feel better and then I fill up and feel bad again, until I vomit". She has not had another BM and no flatus. Review of Systems Pulmonary: No Dyspnea, No Cough Cardiovascular: No: Chest Pain, Palpitations Gastrointestinal: Nausea, Vomiting (dinner yesterday and midnight), Abdominal Pain (crampy) Objective Exam General Appearance: No Apparent Distress, Obese HEENT: PERRL/EOMI, Moist Mucous Membranes Neck: Other (tracheostomy) Respiratory: Lungs Clear, Normal Breath Sounds, No Accessory Muscle Use, No Respiratory Distress Cardiovascular: Regular Rate, Rhythm, No Murmur Gastrointestinal: soft (better than yesterday), abnormal bowel sounds (hypoactive), tenderness (epigastric and hypogastric area to deep palpation) Extremity: No Calf Tenderness, No Pedal Edema Neurologic/Psychiatric: Alert, Oriented x3 Assessment/Plan Assessment/Plan Assessment/Plan Partial small bowel Obstruction - secondary to diagnosis below Metastatic Endometrial CA with increase LN in abdomen Morbid Obesity Patient encouraged ambulation to continue to have a bowel movements. Had BM yesterday, but none since. Recommend to continue supplemental O2 and IV fluids at this time. I spoke to pt regarding her options and told her I want to get an X-ray today. My concern is that she is not improving and I told her we are not going to do anything today. Options include doing nothing except supportive care and surgery. 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 If everything goes great we can lyse the adhesions and she will have bowel function; but need to recover from a major surgery (which would halt chemotherapy scheduled for Tuesday) and it would definitely reoccur because of her metastatic CA. I could open her up and see how bad it is and have to close up without doing anything. Finally, I could get in start to lyse adhesions and then cause worse problems; i.e. enterotomies and cause her to get sicker and even possibly . I think we should try and get in touch with her Oncologic surgeon tomorrow and her O ncologist. Maybe we can get her up to [facility] where they did the surgery and they can help her or maybe start chemortherapy early and that will help her. She understood and we will talk again tomorrow when she has had more time to think and we can hopefully get more information. Supervisory-Addendum Brief Verification & Attestation Participated in pt care: history, MDM, physical Personally performed: exam, history, MDM, supervision of care Care discussed with: Medical Student Procedures: n/a Verification and Attestation of Medical Student E/M Service A medical student performed and documented this service. I then reviewed and verified all information documented by the medical student and made modifications to such information, when appropriate. I personally performed a physical exam, medical decision making and then discussed any differences between the notes and made revisions as necessary to create one note. Boyd Danielson , 12/12/22 , 12:05 HAILEY PUENTE December 12, 2022 08:16 BOYD DANIELSON DO December 12, 2022 12:05
[2022-12-12] MEDS: ONDANSETRON 4 MG/2 ML (SDV) Z0FRAN IV PRN ×2 (08:41→15:57)
[2022-12-12] MEDS: ENOXAPARIN 60 MG/0.6 ML (LOVENOX) SYR SC SCH ×2 (08:41→20:46)
[2022-12-12] MEDS: DOCUSATE SODIUM 100 MG (COLACE) CAP PO SCH ×2 (08:41→20:46)
[2022-12-12] MEDS ORDERED: FUROSEMIDE 40 MG/4 ML INJ (LASIX) IVP NR (10:30)
[2022-12-12] MEDS: RT-ALBUTEROL/IPRATROPIUM 3 ML (DUONEB) VIAL INH SCH ×2 (15:25→18:47)
--- NOTE | 2022-12-12 16:45 | Diagnostic Imaging Report ---
INDICATION: Small bowel obstruction. COMPARISON: 12/10/2022. TECHNIQUE: Five radiographs of the abdomen dated December 12, 2022. FINDINGS: Left-sided Port-A-Cath is partially visualized. Bibasilar interstitial opacities are present. Multiple dilated loops of small bowel are identified within the central abdomen. These loops of small bowel are predominantly gas-filled. Multiple air-fluid levels are present. No significant gas or stool within the colon. Surgical clips within the right upper abdomen. No free air. No acute osseous abnormality with scattered osseous degenerative changes present. IMPRESSION: Persistent small bowel dilatation with a generalized paucity of colonic gas and stool. Findings are concerning for potential small bowel obstruction. Recommend correlation. No free air. Bibasilar atelectasis and/or pneumonitis. Dictated by: Dictated on workstation # [id number]
[2022-12-13 03:45] VITALS: BP 127/78
[2022-12-13 05:32] LABS: BASOPHILS % (AUTO) 0 % (0-10); EOSINOPHILS # (AUTO) 0.1 10^3/uL (0.0-0.3); EOSINOPHILS % (AUTO) 1 % (0-10); HEMATOCRIT 37 % (35-52); HEMOGLOBIN 11.1 g/dL (11.5-16.0); LYMPHOCYTES # (AUTO) 1.6 10^3/uL (1.0-4.0); LYMPHOCYTES % (AUTO) 17 % (12-44); MEAN CORPUSCULAR HEMOGLOBIN 26 pg (25-34); MEAN CORPUSCULAR HGB CONC 30 g/dL (32-36); MEAN CORPUSCULAR VOLUME 85 fL (80-99); MEAN PLATELET VOLUME 9.7 fL (9.0-12.2); MONOCYTES # (AUTO) 0.6 10^3/uL (0.0-1.0); MONOCYTES % (AUTO) 6 % (0-12); NEUTROPHILS % (AUTO) 75 % (42-75); PLATELET COUNT 263 10^3/uL (130-400); WHITE BLOOD COUNT 9.4 10^3/uL (4.3-11.0)
[2022-12-13 05:42] LABS: ALBUMIN 3.1 GM/DL (3.2-4.5)
[2022-12-13 05:43] LABS: POTASSIUM 3.7 MMOL/L (3.6-5.0)
[2022-12-13 05:44] LABS: CALCIUM 9.6 MG/DL (8.5-10.1)
[2022-12-13 05:45] LABS: TOTAL PROTEIN 7.7 GM/DL (6.4-8.2)
[2022-12-13 05:49] LABS: CREATININE SERUM 2.13 MG/DL (0.60-1.30)
[2022-12-13] MEDS: 1/2 NS IV SOLUTION 1,000 ML IV SCH ×2 (06:22→15:43)
[2022-12-13] MEDS: RT-ALBUTEROL SULF 2.5 MG/3 ML PRE-MIX VIAL INH PRN ×2 (06:39→10:22)
--- NOTE | 2022-12-13 06:46 | Progress Note - Surgery ---
HAILEY PUENTE 12/13/22 0646: Subjective Date Seen by a Provider: December 13, 2022 Time Seen by a Provider: 06:30 Subjective/Events-last exam patient reports abdominal pain that comes and goes throughout the day/night. it is not located to one specific location. patient states that she had one episode of vomiting overnight, but is not currently nauseated. Did not have BM yesterday or overnight and has not passed gas. Review of Systems General: No Chills, No Night Sweats HEENT: No Head Aches, No Visual Changes Pulmonary: No Dyspnea, No Cough Cardiovascular: No: Chest Pain, Palpitations Gastrointestinal: Abdominal Pain (crampy); No: Nausea, Vomiting Genitourinary: No Dysuria, No Frequency Musculoskeletal: No: neck pain, shoulder pain Neurological: No: Change in speech, Confusion Objective Exam Vital Signs Date Time Temp Pulse Resp B/P (MAP) Pulse Ox O2 Delivery O2 Flow Rate FiO2 12/13/22 03:45 36.4 93 18 127/78 (94) 96 Trach Collar 30.00 8.00 12/12/22 23:30 36.5 98 18 139/82 (101) 95 Trach Collar 30.00 8.00 12/12/22 20:40 95 Trach Collar 8.00 30 12/12/22 20:23 36.4 101 20 154/95 (114) 95 Trach Collar 8.00 12/12/22 18:47 98 Trach Collar 8.00 30 12/12/22 16:17 36.1 98 20 138/96 (110) 97 Trach Collar 30.00 8.00 12/12/22 11:25 36.3 99 20 137/94 (108) 97 Trach Collar 30.00 8.00 12/12/22 11:10 36.2 87 97 12/12/22 11:01 97 Trach Collar 8.00 30 12/12/22 08:00 Trach Collar 8.00 30 12/12/22 07:39 36.2 87 20 138/90 (106) 98 Trach Collar 30.00 8.00 I & O 12/13/22 06:59 Intake Total 1420 ml Output Total 2602 ml Balance -1182 ml Capillary Refill : Less Than 3 Seconds General Appearance: No Apparent Distress, WD/WN, Chronically ill HEENT: PERRL/EOMI, Moist Mucous Membranes Neck: Other (tracheostomy) Respiratory: Lungs Clear, Normal Breath Sounds Cardiovascular: Regular Rate, Rhythm Peripheral Pulses: 3+ Dorsalis Pedis (R), 3+ Left Dors-Pedis (L), 3+ Radial Pulses (R), 3+ Radial Pulses (L) Gastrointestinal: soft (better than yesterday), abnormal bowel sounds (hypoactive), tenderness (epigastric and hypogastric area to deep palpation) Extremity: No Calf Tenderness, No Pedal Edema Neurologic/Psychiatric: Alert, Oriented x3, Depressed Affect Skin: Normal Color, Warm/Dry Results Lab Laboratory Tests 12/13/22 05:18: White Blood Count 9.4, Red Blood Count 4.36, Hemoglobin 11.1L, Hematocrit 37, Mean Corpuscular Volume 85, Mean Corpuscular Hemoglobin 26, Mean Corpuscular Hemoglobin Concent 30L, Red Cell Distribution Width 15.2H, Platelet Count 263, Mean Platelet Volume 9.7, Immature Granulocyte % (Auto) 1, Neutrophils (%) (Auto) 75, Lymphocytes (%) (Auto) 17, Monocytes (%) (Auto) 6, Eosinophils (%) (Auto) 1, Basophils (%) (Auto) 0, Neutrophils # (Auto) 7.0, Lymphocytes # (Auto) 1.6, Monocytes # (Auto) 0.6, Eosinophils # (Auto) 0.1, Basophils # (Auto) 0.0, Immature Granulocyte # (Auto) 0.1, Sodium Level 145, Potassium Level 3.7, Chloride Level 110H, Carbon Dioxide Level 21, Anion Gap 14, Blood Urea Nitrogen 20H, Creatinine 2.13H, Estimat Glomerular Filtration Rate 26, BUN/Creatinine Ratio 9, Glucose Level 98, Calcium Level 9.6, Corrected Calcium 10.3H, Total Bilirubin 1.0, Aspartate Amino Transf (AST/SGOT) 86H, Alanine Aminotransferase (ALT/SGPT) 85H, Alkaline Phosphatase 134, Total Protein 7.7, Albumin 3.1L Microbiology 12/07/22 Blood Culture - Preliminary, Resulted No growth 12/07/22 Urine Culture - Final, Complete Proteus mirabilis Mixed Bacterial Genie See Comments Assessment/Plan Assessment/Plan Assessment/Plan Partial small bowel Obstruction - secondary to diagnosis below Metastatic Endometrial CA with increase LN in abdomen Morbid Obesity Patient had abdominal xray yesterday which showed small bowel dilatation. Encourged ambulation. Continue supplemental o2 and IV fluids. DELISABRENNEN DO 12/13/22 1625: Subjective Time Seen by a Provider: 14:16 Subjective/Events-last exam Pt seen and examined, still not having any flatus or BM. She is still having episodes of emesis. Review of Systems Pulmonary: No Dyspnea, No Cough Cardiovascular: No: Chest Pain, Palpitations Gastrointestinal: Nausea, Vomiting, Abdominal Pain (crampy) Genitourinary: No Dysuria, No Frequency Objective Exam General Appearance: No Apparent Distress, Chronically ill, Obese HEENT: PERRL/EOMI, Moist Mucous Membranes Respiratory: Lungs Clear, Normal Breath Sounds, No Accessory Muscle Use, No Respiratory Distress Cardiovascular: Regular Rate, Rhythm, No Murmur Gastrointestinal: soft (better than yesterday), abnormal bowel sounds (hypoactive), distended, tenderness (epigastric and hypogastric area to deep palpation) Extremity: No Calf Tenderness Neurologic/Psychiatric: Alert, Oriented x3, Depressed Affect Assessment/Plan Assessment/Plan Assessment/Plan Partial small bowel Obstruction - secondary to diagnosis below Metastatic Endometrial CA with increase LN in abdomen Morbid Obesity Patient had abdominal xray yesterday which showed small bowel dilatation. Encourged ambulation. Continue supplemental o2 and IV fluids. I called and talked to Dr. Cornelius (surgeon who did original surgery), Dr. Blood her Oncologist and Dr. Dobson. Overall I spent an hour of time coordinating care. Her options are to attempt inpt chemo, could send her up to [facility] for the Colorectal surgeons to possibly do a bypass (recommended as an option, but not a good one, also because it would be Laparoscopic). Dr. Blood does not think surgery is good option. Will discuss more with pt. Supervisory-Addendum Brief Verification & Attestation Participated in pt care: history, MDM, physical Personally performed: exam, history, MDM, supervision of care Care discussed with: Medical Student Procedures: n/a Verification and Attestation of Medical Student E/M Service A medical student performed and documented this service. I then reviewed and verified all information documented by the medical student and made modifications to such information, when appropriate. I personally performed a physical exam, medical decision making and then discussed any differences between the notes and made revisions as necessary to create one note. Brennen Hercules , 12/13/22 , 16:25 HAILEY PUENTE December 13, 2022 06:46 BRENNEN HERCULES DO December 13, 2022 16:25
[2022-12-13 08:39] VITALS: BP 126/86
[2022-12-13] MEDS: SENNOSIDES 8.6 MG (SENOKOT) TAB PO SCH ×3 (08:50→20:24)
[2022-12-13] MEDS: DOCUSATE SODIUM 100 MG (COLACE) CAP PO SCH ×3 (08:50→20:24)
[2022-12-13] MEDS: RT-ALBUTEROL/IPRATROPIUM 3 ML (DUONEB) VIAL INH SCH ×3 (08:50→20:58)
[2022-12-13] MEDS: ENOXAPARIN 60 MG/0.6 ML (LOVENOX) SYR SC SCH ×2 (09:03→20:24)
[2022-12-13] MEDS: ONDANSETRON 4 MG/2 ML (SDV) Z0FRAN IV PRN (10:16)
[2022-12-13 11:22] VITALS: BP 132/96
[2022-12-13] MEDS: CALCIUM CARBONATE 500 MG (TUMS) TAB.CHEW PO PRN (13:12)
--- NOTE | 2022-12-13 13:47 | Progress Note ---
Subjective Subjective/Events-last exam Patient having nausea this AM and spitting up. Denies any pain. Unable to tolerate diet at this time Review of Systems General: Fatigue Pulmonary: No Dyspnea Cardiovascular: Edema; No: Chest Pain, Palpitations Gastrointestinal: Nausea, Vomiting Neurological: Weakness Objective Exam Last Set of Vital Signs Vital Signs Date Time Temp Pulse Resp B/P (MAP) Pulse Ox O2 Delivery O2 Flow Rate FiO2 12/13/22 11:22 36.7 101 20 132/96 (108) 96 Trach Collar 8.00 12/13/22 10:22 30 Capillary Refill : Less Than 3 Seconds I&O Intake and Output 12/13/22 00:00 Intake Total 2570 ml Output Total 1902 ml Balance 668 ml Intake Oral 1570 ml IV Total 1000 ml Output Urine Total 902 ml Emesis 1000 ml # Voids 1 # Emeses 2 General: Alert, Oriented X3, Mild Distress (with vomiting) Lungs: Clear to Auscultation, Other (Trach shield in place) Heart: Regular Rate, No Murmurs Abdomen: Soft Extremities: Other (2+ pitting edema) Results/Procedures Lab Laboratory Tests 12/13/22 05:18: White Blood Count 9.4, Red Blood Count 4.36, Hemoglobin 11.1L, Hematocrit 37, Mean Corpuscular Volume 85, Mean Corpuscular Hemoglobin 26, Mean Corpuscular Hemoglobin Concent 30L, Red Cell Distribution Width 15.2H, Platelet Count 263, Mean Platelet Volume 9.7, Immature Granulocyte % (Auto) 1, Neutrophils (%) (Auto) 75, Lymphocytes (%) (Auto) 17, Monocytes (%) (Auto) 6, Eosinophils (%) (Auto) 1, Basophils (%) (Auto) 0, Neutrophils # (Auto) 7.0, Lymphocytes # (Auto) 1.6, Monocytes # (Auto) 0.6, Eosinophils # (Auto) 0.1, Basophils # (Auto) 0.0, Immature Granulocyte # (Auto) 0.1, Sodium Level 145, Potassium Level 3.7, Chloride Level 110H, Carbon Dioxide Level 21, Anion Gap 14, Blood Urea Nitrogen 20H, Creatinine 2.13H, Estimat Glomerular Filtration Rate 26, BUN/Creatinine Ratio 9, Glucose Level 98, Calcium Level 9.6, Corrected Calcium 10.3H, Total Bilirubin 1.0, Aspartate Amino Transf (AST/SGOT) 86H, Alanine Aminotransferase (ALT/SGPT) 85H, Alkaline Phosphatase 134, Total Protein 7.7, Albumin 3.1L Microbiology 12/07/22 Blood Culture - Preliminary, Resulted No growth 12/07/22 Urine Culture - Final, Complete Proteus mirabilis Mixed Bacterial Genie See Comments Radiology Date of Exam:12/07/22 CT ABD/PELVIS WO(KIDNEY STONE) PROCEDURE: CT urinary tract, rule out kidney stone. TECHNIQUE: Multiple contiguous axial images were obtained through the abdomen and pelvis without the use of intravenous contrast. Auto Exposure Controls were utilized during the CT exam to meet ALARA standards for radiation dose reduction. INDICATION: Right lower pelvic pain. COMPARISON: CT abdomen pelvis 04/02/2022. FINDINGS: Included views of the lung bases demonstrate bibasilar subsegmental atelectasis. The liver, spleen, pancreas, and adrenal glands are normal. Postcholecystectomy changes. Moderate left hydronephrosis without evidence of nephrolithiasis. There is a phlebolith in the pelvis. The urinary bladder is decompressed. The right kidney is normal. Diffuse small bowel distention with patient accounting representative small bowel loop measuring 3.8 cm. Some of these bowels demonstrate air-fluid levels. There is relative decompressed: There are multiple enlarged mesenteric lymph nodes with surrounding fat stranding. One of the lymph nodes measures 1.3 x 1.3 cm multiple other enlarged mesenteric lymph nodes are identified. Enlarged pelvic lymph nodes are also seen, for instance left pelvic lymph node measuring 1.4 x 1.4 cm (image 131 series 2). Enlarged retroperitoneal lymph nodes, measuring 2.1 x 1.5 cm. The osseous structures demonstrate no lytic or sclerotic bone lesions. Moderate multilevel facet arthritis in the lumbar spine. Small fat-containing umbilical hernia. IMPRESSION: Diffuse small bowel distention may represent small bowel obstruction or ileus. Moderate left hydronephrosis without evidence of nephrolithiasis. This may be seen with an infectious process, neoplasm, or other etiologies. Consider correlation with urinalysis and postcontrast CT of the abdomen and pelvis for further assessment. Enlarged mesenteric, retroperitoneal, and pelvic lymph nodes concerning for malignancy. Continued workup is required which may include a PET scan. Dictated by: Dictated on workstation # [id number] Dict: 12/07/222048 Trans: 12/07/222058 [facility] [place] [id number] Interpreted by: NATANAEL MARTELL DO Electronically signed by: NATANAEL MARTELL DO 12/07/222058 Assessment/Plan Assessment/Plan (1) Small bowel obstruction Status: Acute Assessment & Plan: 12/13: NPO, bowel rest, General surgery consulted, appreciate recommendations, [place] to call Surgical Oncologist (2) Urinary tract infection Status: Acute Assessment & Plan: 12/13: Continue IV antibiotics Qualifiers: Qualified Codes: N39.0 - Urinary tract infection, site not specified (3) Acute on chronic renal failure Status: Acute (4) Endometrial cancer Status: Acute (5) COPD (chronic obstructive pulmonary disease) Status: Chronic BRITT VELASCO MD December 13, 2022 13:47
[2022-12-13 15:45] VITALS: BP 122/86
[2022-12-13 19:49] VITALS: BP 124/82
[2022-12-13] MEDS: HYDROmorphone 2 MG/ML VIAL (DILAUDID) IV PRN (20:24)
[2022-12-13] MEDS: ONDANSETRON 4 MG (ZOFRAN) ORAL DISSOLVE TAB PO PRN (20:24)
[2022-12-14] VITALS (7 sets, daily range): BP systolic 125–147; BP diastolic 79–100
[2022-12-14] MEDS: 1/2 NS IV SOLUTION 1,000 ML IV SCH ×3 (04:06→22:51)
--- NOTE | 2022-12-14 06:31 | Progress Note - Surgery ---
HAILEY PUENTE 12/14/22 0631: Subjective Date Seen by a Provider: December 14, 2022 Time Seen by a Provider: 06:15 Subjective/Events-last exam Patient complaining of increased LUQ pain this morning. Rates the pain as an 8/10. States the pain is the worst in the LUQ, but reports generalized abdominal pain as well. States the pain comes and goes. One episode of emesis yesterday. Nauseated this morning. No gas and no BM. Review of Systems General: No Chills, No Night Sweats HEENT: No Head Aches, No Visual Changes Pulmonary: No Dyspnea, No Cough Cardiovascular: No: Chest Pain, Palpitations Gastrointestinal: Nausea, Vomiting (yesterday), Abdominal Pain (generalized) Genitourinary: No Dysuria, No Frequency Musculoskeletal: No: neck pain, shoulder pain Neurological: No: Change in speech, Confusion Objective Exam Vital Signs Date Time Temp Pulse Resp B/P (MAP) Pulse Ox O2 Delivery O2 Flow Rate FiO2 12/14/22 04:07 36.2 100 20 141/95 (110) 95 Trach Collar 7.00 12/14/22 02:24 Trach Collar 8.00 30 12/14/22 00:00 36.4 100 18 132/84 (100) 97 Trach Collar 7.00 12/13/22 20:58 96 Trach Collar 8.00 30 12/13/22 20:00 100 Trach Collar 8.00 12/13/22 19:49 36.9 102 20 124/82 (96) 96 Trach Collar 8.00 12/13/22 15:45 36.4 95 20 122/86 (98) 96 Trach Collar 8.00 12/13/22 14:37 99 Trach Collar 8.00 30 12/13/22 11:22 36.7 101 20 132/96 (108) 96 Trach Collar 8.00 12/13/22 10:22 94 Trach Collar 8.00 30 12/13/22 08:39 36.5 93 20 126/86 (99) 98 Trach Collar 8.00 12/13/22 08:00 98 Trach Collar 8.00 12/13/22 06:40 97 Trach Collar 8.00 30 I & O 12/14/22 07:00 Intake Total 3800 ml Output Total 500 ml Balance 3300 ml Capillary Refill : Less Than 3 Seconds General Appearance: No Apparent Distress, Chronically ill, Obese HEENT: PERRL/EOMI, Moist Mucous Membranes Neck: Other (tracheostomy) Respiratory: Lungs Clear, Normal Breath Sounds, No Accessory Muscle Use, No Respiratory Distress Cardiovascular: Regular Rate, Rhythm, No Murmur Peripheral Pulses: 3+ Dorsalis Pedis (R), 3+ Left Dors-Pedis (L), 3+ Radial Pulses (R), 3+ Radial Pulses (L) Gastrointestinal: soft, abnormal bowel sounds (hypoactive), distended, tendern ess (LUQ tender to deep palpation. ) Extremity: No Calf Tenderness, No Pedal Edema Neurologic/Psychiatric: Alert, Oriented x3 Skin: Normal Color, Warm/Dry Results Lab Microbiology 12/07/22 Blood Culture - Final, Complete No growth 12/07/22 Urine Culture - Final, Complete Proteus mirabilis Mixed Bacterial Genie See Comments Assessment/Plan Assessment/Plan Assessment/Plan Partial small bowel Obstruction - secondary to diagnosis below Metastatic Endometrial CA with increase LN in abdomen Morbid Obesity Patient complaining of increased abdominal pain today. No BM or flatus. Encouraged ambulation. Continue supplemental o2 and IV fluids. . BRENNEN DANIELSON DO 12/14/22 1347: Subjective Time Seen by a Provider: 11:24 Subjective/Events-last exam Pt seen and examined, has some increased abdominal pain but is not in any distress. Still no flatus or BM. Nurse states now her "port is not working, couldn't draw blood and now can't even flush it". Review of Systems Pulmonary: No Dyspnea, No Cough Cardiovascular: No: Chest Pain, Palpitations Gastrointestinal: Nausea, Vomiting (yesterday), Abdominal Pain (generalized) Genitourinary: No Dysuria, No Frequency Objective Exam General Appearance: No Apparent Distress, Chronically ill, Obese HEENT: PERRL/EOMI, Moist Mucous Membranes Neck: Other (tracheostomy) Respiratory: Lungs Clear, Normal Breath Sounds, No Accessory Muscle Use, No Respiratory Distress Cardiovascular: Regular Rate, Rhythm, No Murmur Gastrointestinal: soft, abnormal bowel sounds (hypoactive), distended, tenderness (LUQ tender to deep palpation. ) Extremity: No Calf Tenderness, No Pedal Edema Neurologic/Psychiatric: Alert, Oriented x3 Skin: Normal Color, Warm/Dry Assessment/Plan Assessment/Plan Assessment/Plan Partial small bowel Obstruction - secondary to diagnosis below Metastatic Endometrial CA with increase LN in abdomen Morbid Obesity Patient complaining of increased abdominal pain today. No BM or flatus. Encouraged ambulation. Continue supplemental o2 and IV fluids. Will try to start some inpt chemotherapy to hopefully free up the bowel obstruction, she is a poor surgical candidate with bery poor outcomes from surgery expected. Will order Vashti-gram to asses function of port. Supervisory-Addendum Brief Verification & Attestation Participated in pt care: history, MDM, physical Personally performed: exam, history, MDM, supervision of care Care discussed with: Medical Student Procedures: n/a Verification and Attestation of Medical Student E/M Service A medical student performed and documented this service. I then reviewed and verified all information documented by the medical student and made modifications to such information, when appropriate. I personally performed a physical exam, medical decision making and then discussed any differences between the notes and made revisions as necessary to create one note. Brennen Danielson , 12/14/22 , 13:47 HAILEY PUENTE December 14, 2022 06:31 BRENNEN DANIELSON DO December 14, 2022 13:47
[2022-12-14] MEDS: RT-ALBUTEROL/IPRATROPIUM 3 ML (DUONEB) VIAL INH SCH ×4 (06:45→20:02)
[2022-12-14] MEDS: DOCUSATE SODIUM 100 MG (COLACE) CAP PO SCH ×2 (08:21→20:27)
[2022-12-14] MEDS: SENNOSIDES 8.6 MG (SENOKOT) TAB PO SCH ×2 (08:21→20:27)
[2022-12-14] MEDS: ENOXAPARIN 60 MG/0.6 ML (LOVENOX) SYR SC SCH ×2 (08:31→20:27)
[2022-12-14] MEDS: ONDANSETRON 4 MG (ZOFRAN) ORAL DISSOLVE TAB PO PRN ×2 (08:44→20:27)
[2022-12-14] MEDS: HYDROmorphone 2 MG/ML VIAL (DILAUDID) IV PRN (08:44)
[2022-12-14 09:25] LABS: ALBUMIN 3.1 GM/DL (3.2-4.5); POTASSIUM 3.4 MMOL/L (3.6-5.0)
[2022-12-14 09:26] LABS: CALCIUM 8.6 MG/DL (8.5-10.1)
[2022-12-14 09:28] LABS: TOTAL PROTEIN 7.4 GM/DL (6.4-8.2)
[2022-12-14 09:29] LABS: BILIRUBIN,TOTAL 0.7 MG/DL (0.1-1.0)
[2022-12-14 09:31] LABS: CREATININE SERUM 1.82 MG/DL (0.60-1.30)
[2022-12-14] MEDS ORDERED: ALTEPLASE 2 MG (CATHFLO) IV ONE (10:00)
[2022-12-14 10:32] LABS: BASOPHILS % (AUTO) 0 % (0-10); EOSINOPHILS # (AUTO) 0.1 10^3/uL (0.0-0.3); EOSINOPHILS % (AUTO) 1 % (0-10); HEMATOCRIT 38 % (35-52); HEMOGLOBIN 11.4 g/dL (11.5-16.0); LYMPHOCYTES % (AUTO) 17 % (12-44); MEAN CORPUSCULAR HEMOGLOBIN 26 pg (25-34); MEAN CORPUSCULAR HGB CONC 30 g/dL (32-36); MEAN CORPUSCULAR VOLUME 85 fL (80-99); MEAN PLATELET VOLUME 10.5 fL (9.0-12.2); MONOCYTES # (AUTO) 0.7 10^3/uL (0.0-1.0); MONOCYTES % (AUTO) 6 % (0-12); NEUTROPHILS # (AUTO) 8.4 10^3/uL (1.8-7.8); NEUTROPHILS % (AUTO) 74 % (42-75); PLATELET COUNT 280 10^3/uL (130-400); WHITE BLOOD COUNT 11.3 10^3/uL (4.3-11.0)
--- NOTE | 2022-12-14 10:38 | Diagnostic Imaging Report ---
INDICATION: Port check. TECHNIQUE: An AP view of the chest was obtained. FINDINGS: Since 06/04/2022, there has been placement of a left anterior chest wall port with the catheter extending into the lower superior vena cava. There is mild cardiomegaly with linear density in the perihilar regions, likely representing atelectasis. No pneumothorax is seen and there is no significant pleural fluid. A tracheostomy tube is in place. IMPRESSION: Cardiomegaly with mild bilateral atelectasis. No complication is radiographically evident along the course of the left chest wall port and catheter. Dictated by: Dictated on workstation # [id number]
[2022-12-14] MEDS ORDERED: HOLD METFORMIN - RECEIVED CONTRAST 20 ML VIAL IV SCH (14:00)
[2022-12-14] MEDS ORDERED: IOHEXOL 300 MG/ML 50 ML (OMNIPAQUE 300) VIAL IV ONE (14:00)
--- NOTE | 2022-12-14 17:14 | Progress Note ---
Subjective Subjective/Events-last exam States that she is having increased pain today. She has been vomiting green/brown fluid. Review of Systems General: Fatigue, Malaise Pulmonary: Dyspnea Cardiovascular: Edema; No: Chest Pain, Palpitations Gastrointestinal: Nausea, Vomiting, Abdominal Pain Neurological: Weakness, Incoordination Objective Exam Last Set of Vital Signs Vital Signs Date Time Temp Pulse Resp B/P (MAP) Pulse Ox O2 Delivery O2 Flow Rate FiO2 12/14/22 16:15 36.5 107 20 142/94 (110) 95 Trach Collar 8.00 12/14/22 15:32 30 Capillary Refill : Less Than 3 Seconds I&O Intake and Output 12/14/22 00:00 Intake Total 2860 ml Output Total 1050 ml Balance 1810 ml Intake Oral 1760 ml IV Total 1100 ml Output Urine Total 550 ml Emesis 500 ml # Voids 1 # Emeses 1 General: Alert, Oriented X3, No Acute Distress Lungs: Clear to Auscultation, Normal Air Movement, Other (chronic trach in place) Heart: Regular Rate Abdomen: Soft, Other (diffuse ttp, no gaurding or rebound) Neuro: Normal Speech Results/Procedures Lab Laboratory Tests 12/14/22 09:00: Sodium Level 142, Potassium Level 3.4L, Chloride Level 108H, Carbon Dioxide Level 22, Anion Gap 12, Blood Urea Nitrogen 18, Creatinine 1.82H, Estimat Glomerular Filtration Rate 31, BUN/Creatinine Ratio 10, Glucose Level 98, Calci um Level 8.6, Corrected Calcium 9.3, Total Bilirubin 0.7, Aspartate Amino Transf (AST/SGOT) 89H, Alanine Aminotransferase (ALT/SGPT) 104H, Alkaline Phosphatase 133, Total Protein 7.4, Albumin 3.1L 12/14/22 10:20: White Blood Count 11.3H, Red Blood Count 4.47, Hemoglobin 11.4L, Hematocrit 38, Mean Corpuscular Volume 85, Mean Corpuscular Hemoglobin 26, Mean Corpuscular Hemoglobin Concent 30L, Red Cell Distribution Width 15.2H, Platelet Count 280, Mean Platelet Volume 10.5, Immature Granulocyte % (Auto) 1, Neutrophils (%) (Auto) 74, Lymphocytes (%) (Auto) 17, Monocytes (%) (Auto) 6, Eosinophils (%) (Auto) 1, Basophils (%) (Auto) 0, Neutrophils # (Auto) 8.4H, Lymphocytes # (Auto) 2.0, Monocytes # (Auto) 0.7, Eosinophils # (Auto) 0.1, Basophils # (Auto) 0.0, Immature Granulocyte # (Auto) 0.1 Microbiology 12/07/22 Blood Culture - Final, Complete No growth 12/07/22 Urine Culture - Final, Complete Proteus mirabilis Mixed Bacterial Genie See Comments Radiology Date of Exam:12/07/22 CT ABD/PELVIS WO(KIDNEY STONE) PROCEDURE: CT urinary tract, rule out kidney stone. TECHNIQUE: Multiple contiguous axial images were obtained through the abdomen and pelvis without the use of intravenous contrast. Auto Exposure Controls were utilized during the CT exam to meet ALARA standards for radiation dose reduction. INDICATION: Right lower pelvic pain. COMPARISON: CT abdomen pelvis 04/02/2022. FINDINGS: Included views of the lung bases demonstrate bibasilar subsegmental atelectasis. The liver, spleen, pancreas, and adrenal glands are normal. Postcholecystectomy changes. Moderate left hydronephrosis without evidence of nephrolithiasis. There is a phlebolith in the pelvis. The urinary bladder is decompressed. The right kidney is normal. Diffuse small bowel distention with patient service representative small bowel loop measuring 3.8 cm. Some of these bowels demonstrate air-fluid levels. There is relative decompressed: There are multiple enlarged mesenteric lymph nodes with surrounding fat stranding. One of the lymph nodes measures 1.3 x 1.3 cm multiple other enlarged mesenteric lymph nodes are identified. Enlarged pelvic lymph nodes are also seen, for instance left pelvic lymph node measuring 1.4 x 1.4 cm (image 131 series 2). Enlarged retroperitoneal lymph nodes, measuring 2.1 x 1.5 cm. The osseous structures demonstrate no lytic or sclerotic bone lesions. Moderate multilevel facet arthritis in the lumbar spine. Small fat-containing umbilical hernia. IMPRESSION: Diffuse small bowel distention may represent small bowel obstruction or ileus. Moderate left hydronephrosis without evidence of nephrolithiasis. This may be seen with an infectious process, neoplasm, or other etiologies. Consider correlation with urinalysis and postcontrast CT of the abdomen and pelvis for further assessment. Enlarged mesenteric, retroperitoneal, and pelvic lymph nodes concerning for malignancy. Continued workup is required which may include a PET scan. Dictated by: Dictated on workstation # [id number] Dict: 12/07/222048 Trans: 12/07/222058 [facility] [id number] Interpreted by: NATANAEL MARTELL DO Electronically signed by: NATANAEL MARTELL DO 12/07/222058 Assessment/Plan Assessment/Plan (1) Small bowel obstruction Status: Acute Assessment & Plan: 12/13: NPO, bowel rest, General surgery consulted, appreciate recommendations, Jagjit to call Surgical Oncologist 12/14: Jagjit spoke with Antoine and not a good surgical candidate, Plan to try and start chemo while in hospital to help with resolution of SBO (2) Urinary tract infection Status: Acute Assessment & Plan: 12/13: Continue IV antibiotics Qualifiers: Qualified Codes: N39.0 - Urinary tract infection, site not specified (3) Acute on chronic renal failure Status: Acute Assessment & Plan: 12/14: Improved, trending down close to baseline (4) Endometrial cancer Status: Acute (5) COPD (chronic obstructive pulmonary disease) Status: Chronic BRITT VELASCO MD December 14, 2022 17:14
[2022-12-15] VITALS (11 sets, daily range): BP systolic 116–156; BP diastolic 69–98
[2022-12-15 05:34] LABS: BASOPHILS % (AUTO) 0 % (0-10); EOSINOPHILS # (AUTO) 0.1 10^3/uL (0.0-0.3); EOSINOPHILS % (AUTO) 0 % (0-10); HEMATOCRIT 38 % (35-52); HEMOGLOBIN 11.6 g/dL (11.5-16.0); LYMPHOCYTES # (AUTO) 1.8 10^3/uL (1.0-4.0); LYMPHOCYTES % (AUTO) 15 % (12-44); MEAN CORPUSCULAR HEMOGLOBIN 26 pg (25-34); MEAN CORPUSCULAR HGB CONC 31 g/dL (32-36); MEAN CORPUSCULAR VOLUME 85 fL (80-99); MEAN PLATELET VOLUME 10.7 fL (9.0-12.2); MONOCYTES # (AUTO) 0.8 10^3/uL (0.0-1.0); MONOCYTES % (AUTO) 6 % (0-12); NEUTROPHILS % (AUTO) 76 % (42-75); PLATELET COUNT 285 10^3/uL (130-400); WHITE BLOOD COUNT 11.8 10^3/uL (4.3-11.0)
[2022-12-15 05:55] LABS: ALBUMIN 3.3 GM/DL (3.2-4.5); BILIRUBIN,TOTAL 0.6 MG/DL (0.1-1.0); CALCIUM 9.7 MG/DL (8.5-10.1); POTASSIUM 3.7 MMOL/L (3.6-5.0); TOTAL PROTEIN 8.1 GM/DL (6.4-8.2)
--- NOTE | 2022-12-15 06:39 | Progress Note - Surgery ---
HAILEY PUENTE 12/15/22 0639: Subjective Date Seen by a Provider: December 15, 2022 Time Seen by a Provider: 06:25 Subjective/Events-last exam Patient reports episode of vomiting overnight. Rates abdominal pain as a 4/10. Pain located over entire abdomen. Reports occasional nausea that comes and goes. patient denies having BM or passing gas. Review of Systems General: No Chills, No Night Sweats HEENT: No Head Aches, No Visual Changes Pulmonary: No Dyspnea, No Cough Cardiovascular: No: Chest Pain, Palpitations Gastrointestinal: Nausea, Vomiting, Abdominal Pain (diffuse) Genitourinary: No Dysuria, No Frequency Musculoskeletal: No: neck pain, shoulder pain Neurological: No: Change in speech, Confusion Objective Exam Vital Signs Date Time Temp Pulse Resp B/P (MAP) Pulse Ox O2 Delivery O2 Flow Rate FiO2 12/15/22 04:00 36.5 101 18 136/72 (93) 97 Trach Collar 8.00 8.00 12/14/22 23:12 37.0 102 18 125/79 (94) 97 Trach Collar 8.00 8.00 12/14/22 20:02 98 Trach Collar 8.00 30 12/14/22 20:00 95 Trach Collar 8.00 30 12/14/22 19:29 36.4 105 18 147/100 (116) 98 Trach Collar 8.00 12/14/22 16:15 36.5 107 20 142/94 (110) 95 Trach Collar 8.00 12/14/22 15:32 99 Trach Collar 8.00 30 12/14/22 11:36 36.2 97 18 130/90 (103) 98 Trach Collar 8.00 12/14/22 08:15 35.9 111 19 145/94 (111) 94 Trach Collar 8.00 12/14/22 08:00 94 Trach Collar 8.00 30 12/14/22 06:46 99 Trach Collar 8.00 30 I & O 12/15/22 07:00 Intake Total 1030 ml Output Total 520 ml Balance 510 ml Capillary Refill : Less Than 3 Seconds General Appearance: No Apparent Distress, Chronically ill, Obese HEENT: PERRL/EOMI, Moist Mucous Membranes Neck: Other (tracheostomy in place) Respiratory: Lungs Clear, Normal Breath Sounds, No Accessory Muscle Use, No Respiratory Distress Cardiovascular: Regular Rate, Rhythm, No Murmur Peripheral Pulses: 3+ Dorsalis Pedis (R), 3+ Left Dors-Pedis (L), 3+ Radial Pulses (R), 3+ Radial Pulses (L) Gastrointestinal: soft, abnormal bowel sounds (hypoactive), tenderness (LUQ tender to deep palpation. ) Extremity: No Calf Tenderness, No Pedal Edema Neurologic/Psychiatric: Alert, Oriented x3 Skin: Normal Color, Warm/Dry Results Lab Laboratory Tests 12/14/22 09:00: Sodium Level 142, Potassium Level 3.4L, Chloride Level 108H, Carbon Dioxide Level 22, Anion Gap 12, Blood Urea Nitrogen 18, Creatinine 1.82H, Estimat Glomerular Filtration Rate 31, BUN/Creatinine Ratio 10, Glucose Level 98, Calcium Level 8.6, Corrected Calcium 9.3, Total Bilirubin 0.7, Aspartate Amino Transf (AST/SGOT) 89H, Alanine Aminotransferase (ALT/SGPT) 104H, Alkaline Leonides sphatase 133, Total Protein 7.4, Albumin 3.1L 12/14/22 10:20: White Blood Count 11.3H, Red Blood Count 4.47, Hemoglobin 11.4L, Hematocrit 38, Mean Corpuscular Volume 85, Mean Corpuscular Hemoglobin 26, Mean Corpuscular Hemoglobin Concent 30L, Red Cell Distribution Width 15.2H, Platelet Count 280, Mean Platelet Volume 10.5, Immature Granulocyte % (Auto) 1, Neutrophils (%) (Auto) 74, Lymphocytes (%) (Auto) 17, Monocytes (%) (Auto) 6, Eosinophils (%) (Auto) 1, Basophils (%) (Auto) 0, Neutrophils # (Auto) 8.4H, Lymphocytes # (Auto) 2.0, Monocytes # (Auto) 0.7, Eosinophils # (Auto) 0.1, Basophils # (Auto) 0.0, Immature Granulocyte # (Auto) 0.1 12/15/22 05:20: Sodium Level 145, Potassium Level 3.7, Chloride Level 103, Carbon Dioxide Level 25, Anion Gap 17H, Blood Urea Nitrogen 21H, Creatinine 2.00H, Estimat Glomerular Filtration Rate 28, BUN/Creatinine Ratio 11, Glucose Level 88, Calcium Level 9.7, Corrected Calcium 10.3H, Total Bilirubin 0.6, Aspartate Amino Transf (AST/SGOT) 71H, Alanine Aminotransferase (ALT/SGPT) 100H, Alkaline Phosphatase 141H, Total Protein 8.1, Albumin 3.3, White Blood Count 11.8H, Red Blood Count 4.47, Hemoglobin 11.6, Hematocrit 38, Mean Corpuscular Volume 85, Mean Corpuscular Hemoglobin 26, Mean Corpuscular Hemoglobin Concent 31L, Red Cell Distribution Width 15.2H, Platelet Count 285, Mean Platelet Volume 10.7, Immature Granulocyte % (Auto) 1, Neutrophils (%) (Auto) 76H, Lymphocytes (%) (Auto) 15, Monocytes (%) (Auto) 6, Eosinophils (%) (Auto) 0, Basophils (%) (Auto) 0, Neutrophils # (Auto) 9.0H, Lymphocytes # (Auto) 1.8, Monocytes # (Auto) 0.8, Eosinophils # (Auto) 0.1, Basophils # (Auto) 0.0, Immature Granuloc yte # (Auto) 0.2H Microbiology 12/07/22 Blood Culture - Final, Complete No growth 12/07/22 Urine Culture - Final, Complete Proteus mirabilis Mixed Bacterial Genie See Comments Assessment/Plan Assessment/Plan Assessment/Plan Partial small bowel Obstruction - secondary to diagnosis below Metastatic Endometrial CA with increase LN in abdomen Morbid Obesity Vashti-gram did show leakage and possible hole in catheter. No BM or flatus. patient was encouraged to ambulate. Continue supplemental O2 and IV fluids. BRENNEN DANIELSON DO 12/15/22 1329: Subjective Time Seen by a Provider: 13:21 Subjective/Events-last exam Pt seen down in [facility], no new complaints. Vashti-gram yesterday showed leaking from port (malfunctioning). Review of Systems Pulmonary: No Dyspnea, No Cough Cardiovascular: No: Chest Pain, Palpitations Gastrointestinal: Nausea, Vomiting, Abdominal Pain (diffuse) Genitourinary: No Dysuria, No Frequency Objective Exam General Appearance: No Apparent Distress, Chronically ill, Obese HEENT: PERRL/EOMI, Moist Mucous Membranes Neck: Other (tracheostomy in place) Respiratory: Lungs Clear, Normal Breath Sounds, No Accessory Muscle Use, No Respiratory Distress Cardiovascular: Regular Rate, Rhythm Gastrointestinal: soft, abnormal bowel sounds (hypoactive), tenderness (LUQ tender to deep palpation. ) Extremity: No Calf Tenderness, No Pedal Edema Neurologic/Psychiatric: Alert Assessment/Plan Assessment/Plan Assessment/Plan Malfunctioning Vashti-Cath Partial small bowel Obstruction - secondary to diagnosis below Metastatic Endometrial CA with increase LN in abdomen Morbid Obesity Pt still with no BM or flatus. patient was encouraged to ambulate. Continue supplemental O2 and IV fluids. Plan to remove port on left and place one on the right. Discussed this with pt and went over risks and complications with pt, including but not limited to pain, bleeding, infection, scar, damage to vessels or even pneumothorax. All questions answered to her satisfaction. Supervisory-Addendum Brief Verification & Attestation Participated in pt care: history, MDM, physical Personally performed: exam, history, MDM, supervision of care Care discussed with: Medical Student Procedures: n/a Verification and Attestation of Medical Student E/M Service A medical student performed and documented this service. I then reviewed and verified all information documented by the medical student and made modifications to such information, when appropriate. I personally performed a physical exam, medical decision making and then discussed any differences between the notes and made revisions as necessary to create one note. Brennen Danielson , 12/15/22 , 13:29 HAILEY PUENTE December 15, 2022 06:39 BRENNEN DANIELSON DO December 15, 2022 13:29
[2022-12-15] MEDS: RT-ALBUTEROL/IPRATROPIUM 3 ML (DUONEB) VIAL INH SCH ×4 (07:17→20:18)
[2022-12-15] MEDS: 1/2 NS IV SOLUTION 1,000 ML IV SCH ×3 (08:24→23:50)
[2022-12-15] MEDS: ONDANSETRON 4 MG/2 ML (SDV) Z0FRAN IV PRN ×2 (08:24→18:46)
[2022-12-15] MEDS: SENNOSIDES 8.6 MG (SENOKOT) TAB PO SCH ×2 (08:25→20:29)
[2022-12-15] MEDS: DOCUSATE SODIUM 100 MG (COLACE) CAP PO SCH ×2 (08:25→20:29)
[2022-12-15] MEDS: ENOXAPARIN 60 MG/0.6 ML (LOVENOX) SYR SC SCH ×2 (08:26→20:29)
[2022-12-15] MEDS: HYDROmorphone 2 MG/ML VIAL (DILAUDID) IV PRN ×2 (11:28→18:42)
[2022-12-15] MEDS ORDERED: 0.9% SODIUM CHLORIDE PF INJ 20 ML VIAL ONE (13:03)
[2022-12-15] MEDS ORDERED: HEParin (CENTRAL IV FLUSH) 500 UNIT/5 ML SYR ONE (13:03)
[2022-12-15] MEDS ORDERED: BUP/EPI 0.5% 1:200,000 (SENSORCAINE) 30 ML VIAL ONE (13:04)
[2022-12-15] MEDS ORDERED: ceFAZolin INJECTION 1,000 MG ONE (13:11)
[2022-12-15] MEDS ORDERED: ceFAZolin INJECTION 2,000 MG ONE (13:11)
[2022-12-15] MEDS ORDERED: proPOfol 200 MG/20 ML (DIPRIVAN) VIAL IV ONE (13:24)
[2022-12-15] MEDS ORDERED: MIDAZOLAM 2 MG/2 ML (VERSED) VIAL ONE (13:24)
[2022-12-15] MEDS ORDERED: KETAMINE 50 MG/5 ML SYRINGE ONE (13:24)
[2022-12-15] MEDS ORDERED: ceFAZolin INJECTION 1,000 MG VIAL IV ONE (13:30)
--- NOTE | 2022-12-15 13:56 | Progress Note ---
Subjective Subjective/Events-last exam States that her pain is improved this AM. She is NPO for her procedure later today. Review of Systems General: Fatigue Pulmonary: No Dyspnea, No Cough Cardiovascular: No: Chest Pain, Palpitations Gastrointestinal: Nausea, Abdominal Pain; No: Diarrhea, Constipation Neurological: No: Weakness, Incoordination Objective Exam Last Set of Vital Signs Vital Signs Date Time Temp Pulse Resp B/P (MAP) Pulse Ox O2 Delivery O2 Flow Rate FiO2 12/15/22 11:47 36.6 106 20 116/72 (87) 98 Trach Collar 8.00 12/15/22 11:14 30 Capillary Refill : Less Than 3 Seconds I&O Intake and Output 12/14/22 23:59 Intake Total 2170 ml Output Total 500 ml Balance 1670 ml Intake Oral 1170 ml IV Total 1000 ml Output Urine Total 300 ml Emesis 200 ml # Voids 3 General: Alert, Oriented X3, No Acute Distress Lungs: Clear to Auscultation, Normal Air Movement, Other (Trach shield in place) Heart: Regular Rate, No Murmurs Abdomen: Soft, Other (diffuse ttp, no rebound or gaurding) Extremities: No Tenderness/Swelling Neuro: Normal Speech Results/Procedures Lab Laboratory Tests 12/15/22 05:20: White Blood Count 11.8H, Red Blood Count 4.47, Hemoglobin 11.6, Hematocrit 38, Mean Corpuscular Volume 85, Mean Corpuscular Hemoglobin 26, Mean Corpuscular Hemoglobin Concent 31L, Red Cell Distribution Width 15.2H, Platelet Count 285, Mean Platelet Volume 10.7, Immature Granulocyte % (Auto) 1, Neutrophils (%) (Auto) 76H, Lymphocytes (%) (Auto) 15, Monocytes (%) (Auto) 6, Eosinophils (%) (Auto) 0, Basophils (%) (Auto) 0, Neutrophils # (Auto) 9.0H, Lymphocytes # (Auto) 1.8, Monocytes # (Auto) 0.8, Eosinophils # (Auto) 0.1, Basophils # (Auto) 0.0, Immature Granulocyte # (Auto) 0.2H, Sodium Level 145, Potassium Level 3.7, Chloride Level 103, Carbon Dioxide Level 25, Anion Gap 17H, Blood Urea Nitrogen 21H, Creatinine 2.00H, Estimat Glomerular Filtration Rate 28, BUN/Creatinine Ratio 11, Glucose Level 88, Calcium Level 9.7, Corrected Calcium 10.3H, Total Bilirubin 0.6, Aspartate Amino Transf (AST/SGOT) 71H, Alanine Aminotransferase (ALT/SGPT) 100H, Alkaline Phosphatase 141H, Total Protein 8.1, Albumin 3.3 Microbiology 12/07/22 Blood Culture - Final, Complete No growth 12/07/22 Urine Culture - Final, Complete Proteus mirabilis Mixed Bacterial Genie See Comments Radiology Date of Exam:12/07/22 CT ABD/PELVIS WO(KIDNEY STONE) PROCEDURE: CT urinary tract, rule out kidney stone. TECHNIQUE: Multiple contiguous axial images were obtained through the abdomen and pelvis without the use of intravenous contrast. Auto Exposure Controls were utilized during the CT exam to meet ALARA standards for radiation dose reduction. INDICATION: Right lower pelvic pain. COMPARISON: CT abdomen pelvis 04/02/2022. FINDINGS: Included views of the lung bases demonstrate bibasilar subsegmental atelectasis. The liver, spleen, pancreas, and adrenal glands are normal. Postcholecystectomy changes. Moderate left hydronephrosis without evidence of nephrolithiasis. There is a phlebolith in the pelvis. The urinary bladder is decompressed. The right kidney is normal. Diffuse small bowel distention with herbicide service sales representative small bowel loop measuring 3.8 cm. Some of these bowels demonstrate air-fluid levels. There is relative decompressed: There are multiple enlarged mesenteric lymph nodes with surrounding fat stranding. One of the lymph nodes measures 1.3 x 1.3 cm multiple other enlarged mesenteric lymph nodes are identified. Enlarged pelvic lymph nodes are also seen, for instance left pelvic lymph node measuring 1.4 x 1.4 cm (image 131 series 2). Enlarged retroperitoneal lymph nodes, measuring 2.1 x 1.5 cm. The osseous structures demonstrate no lytic or sclerotic bone lesions. Moderate multilevel facet arthritis in the lumbar spine. Small fat-containing umbilical hernia. IMPRESSION: Diffuse small bowel distention may represent small bowel obstruction or ileus. Moderate left hydronephrosis without evidence of nephrolithiasis. This may be seen with an infectious process, neoplasm, or other etiologies. Consider correlation with urinalysis and postcontrast CT of the abdomen and pelvis for further assessment. Enlarged mesenteric, retroperitoneal, and pelvic lymph nodes concerning for malignancy. Continued workup is required which may include a PET scan. Dictated by: Dictated on workstation # [id number] Dict: 12/07/222048 Trans: 12/07/222058 [facility] [place] [id number] Interpreted by: NATANAEL MARTELL DO Electronically signed by: NATANAEL MARTELL DO 12/07/222058 Assessment/Plan Assessment/Plan (1) Small bowel obstruction Status: Acute Assessment & Plan: 12/13: NPO, bowel rest, General surgery consulted, appreciate recommendations, Jagjit to call Surgical Oncologist 12/14: Jagjit spoke with Antoine and not a good surgical candidate, Plan to try and start chemo while in hospital to help with resolution of SBO 12/15: Replacing port today, consult placed for oncology (2) Urinary tract infection Status: Acute Assessment & Plan: 12/13: Continue IV antibiotics Qualifiers: Qualified Codes: N39.0 - Urinary tract infection, site not specified (3) Acute on chronic renal failure Status: Acute Assessment & Plan: 12/14: Improved, trending down close to baseline (4) Endometrial cancer Status: Acute Assessment & Plan: 12/15: Not a good surgical candidate (5) COPD (chronic obstructive pulmonary disease) Status: Chronic BRITT VELASCO MD December 15, 2022 13:56
[2022-12-15] MEDS ORDERED: LACTATED RINGERS 1,000 ML IV PRN (14:00)
--- NOTE | 2022-12-15 14:33 | Progress Note-Post Operative ---
Post-Operative Progess Note Surgeon (s)/Emergency Services Professional (s) Surgeon BRENNEN HERCULES DO Emergency Services Professional: MELISSA Pascal student Pre-Operative Diagnosis Malfunctioning Port, Peritoneal CA, Venous insufficiency Post-Operative Diagnosis same Procedure & Operative Findings Date of Procedure 12/15/22 Procedure Performed/Findings PROCEDURE: Removal of port PROCEDURE: The patient was taken to the operating suite and was prepped and draped in sterile fashion. A surgical pause was performed. Local anesthetic was infiltrated to the area around the port. A #15 blade scalpel was used to make an incision. Cautery was used to dissect down to the port which was then grasped and then dissected around. The catheter was removed in its entirety. The port was then able to be dissected out of the pocket and elevated. The wound was then irrigated with copious amounts of irrigation. Hemostasis had been achieved. The subcutaneous tissues were then reapproximated using 3-0 Vicryl. Skin was then closed using 4-0 Vicryl in a running fashion. The area was then washed and dried and Skin Affix placed over the incision. PROCEDURE: Local anesthetic was infiltrated at the clavicle and along the tract to the right anterior chest, where more local was placed so the pocket could be created. Using an 18 gauge finder needle with negative inspiration the right subclavian vein was accessed on the first attempt and dark nonpulsatile blood was withdrawn. The wire was inserted and fluoroscopy assured proper placement. The needle was removed. The regular wire was inserted and fluoroscopy assured proper placement. The wire was then secured. A #11 blade scalpel was used to make an incision over the right chest and along guidewire. Cautery was used to dissect down to the pectoral fascia. A pocket was created with blunt dissection. The dilator sheath was then advanced over the wire under fluoroscopy and the dilator and wire were removed. The Groshong catheter was inserted through the sheath and the sheath was then removed. The Groshong wire was removed. The catheter was then tunneled to the right chest pocket. Fluoroscopy was used to cut to length and this was then attached to the port which was then placed within the pocket. The port was then accessed without difficulty. It was then flushed with saline and then heparin. The port was sewn in place with 3-0 prolene suture on the right side of port. The subcutaneous tissues were then reapproximated using 3-0 Vicryl. Finally the skin was closed with 4-0 undyed monocryl, 3 interrupted sutures. The areas were then washed and dried. Skin Affix was placed over incision. The insertion point of the neck Skin Affix was placed over the incision. The patient tolerated the procedure well without complication and was taken to recovery room in stable condition. Anesthesia Type IV sedation by PLASTIC MAKER Estimated Blood Loss Estimated blood loss (mL): less than 10ml Specimens/Packing Specimens Removed chaka-cath, not sent to BRENNEN Denis DO December 15, 2022 14:33
--- NOTE | 2022-12-15 14:39 | Anesthesia-General Post-Op ---
MAC Patient Condition Mental Status/LOC: Same as Preop Cardiovascular: Satisfactory Nausea/Vomiting: Absent Respiratory: Satisfactory Pain: Controlled Complications: Absent Post Op Complications Complications None Follow Up Care/Instructions Patient Instructions None needed. Anesthesiology Discharge Order Discharge Order Patient is doing well, no complaints, stable vital signs, no apparent adverse anesthesia problems. No complications reported per nursing. MADAI MERINO CRNA December 15, 2022 14:39
[2022-12-15] MEDS ORDERED: ONDANSETRON 4 MG/2 ML (SDV) Z0FRAN IVP PRN (14:45)
[2022-12-15] MEDS ORDERED: fentaNYL INJ 100 MCG/2 ML AMP IVP ONE (14:45)
--- NOTE | 2022-12-15 17:26 | Diagnostic Imaging Report ---
INDICATION: Port-A-Cath placement. Intraoperative fluoroscopy views obtained with the portable intensifier in surgery. Two views were obtained, 4.8 seconds of fluoroscopy time was used. Intraoperative fluoroscopic views demonstrate a Port-A-Cath over the right chest with catheter entering the right internal jugular vein, with the tip overlying the SVC. IMPRESSION: Intraoperative views demonstrate Port-A-Cath placement as above. Dictated by: Dictated on workstation # [id number]
[2022-12-16] MEDS: CALCIUM CARBONATE 500 MG (TUMS) TAB.CHEW PO PRN (00:44)
[2022-12-16] MEDS: ONDANSETRON 4 MG/2 ML (SDV) Z0FRAN IV PRN (01:24)
[2022-12-16] MEDS: HYDROmorphone 2 MG/ML VIAL (DILAUDID) IV PRN ×3 (04:04→19:37)
[2022-12-16 04:13] VITALS: BP 144/84
[2022-12-16 04:58] LABS: BASOPHILS % (AUTO) 0 % (0-10); EOSINOPHILS # (AUTO) 0.1 10^3/uL (0.0-0.3); EOSINOPHILS % (AUTO) 0 % (0-10); HEMATOCRIT 35 % (35-52); HEMOGLOBIN 10.9 g/dL (11.5-16.0); LYMPHOCYTES # (AUTO) 1.8 10^3/uL (1.0-4.0); LYMPHOCYTES % (AUTO) 15 % (12-44); MEAN CORPUSCULAR HEMOGLOBIN 26 pg (25-34); MEAN CORPUSCULAR HGB CONC 31 g/dL (32-36); MEAN CORPUSCULAR VOLUME 84 fL (80-99); MEAN PLATELET VOLUME 10.7 fL (9.0-12.2); MONOCYTES # (AUTO) 0.7 10^3/uL (0.0-1.0); MONOCYTES % (AUTO) 6 % (0-12); NEUTROPHILS # (AUTO) 9.4 10^3/uL (1.8-7.8); NEUTROPHILS % (AUTO) 78 % (42-75); PLATELET COUNT 279 10^3/uL (130-400)
[2022-12-16 05:14] LABS: ALBUMIN 3.1 GM/DL (3.2-4.5); POTASSIUM 3.5 MMOL/L (3.6-5.0)
[2022-12-16 05:16] LABS: TOTAL PROTEIN 7.6 GM/DL (6.4-8.2)
[2022-12-16 05:18] LABS: BILIRUBIN,TOTAL 0.5 MG/DL (0.1-1.0)
[2022-12-16 05:20] LABS: CREATININE SERUM 1.84 MG/DL (0.60-1.30)
--- NOTE | 2022-12-16 06:48 | Progress Note - Surgery ---
HAILEY PUENTE 12/16/22 0648: Subjective Date Seen by a Provider: December 16, 2022 Time Seen by a Provider: 06:30 Subjective/Events-last exam Patient complains of soreness over incision sites where her port was removed and a new one placed yesterday. Also complains of abdominal pain all over that comes and goes. Patient reports no nausea, but did have an episode of vomiting early this morning. No BM or flatus. Review of Systems General: No Chills, No Night Sweats HEENT: No Head Aches, No Visual Changes Pulmonary: No Dyspnea, No Cough Cardiovascular: No: Chest Pain, Palpitations Gastrointestinal: Vomiting (one time this morning.), Abdominal Pain (comes and goes); No: Nausea Genitourinary: No Dysuria, No Frequency Musculoskeletal: No: neck pain, shoulder pain Neurological: No: Change in speech, Confusion Objective Exam Vital Signs Date Time Temp Pulse Resp B/P (MAP) Pulse Ox O2 Delivery O2 Flow Rate FiO2 12/16/22 04:13 37.0 105 16 144/84 (104) 95 Trach Collar 12/16/22 02:16 93 Trach Collar 8.00 30 12/15/22 23:50 100 18 118/80 (93) 93 8.00 12/15/22 22:42 93 Trach Collar 8.00 30 12/15/22 20:18 97 Trach Collar 8.00 30 12/15/22 19:53 36.6 96 20 127/75 (92) 96 Trach Collar 8.00 12/15/22 19:30 Trach Collar 8.00 12/15/22 15:37 36.4 90 19 123/69 (87) 97 Nasal Cannula 8.00 12/15/22 15:15 Trach Collar 8.00 12/15/22 15:05 Trach Collar 8.00 12/15/22 15:00 15 144/96 (112) 100 Trach Collar 8.00 12/15/22 14:50 19 156/98 (117) 100 Trach Collar 10.00 12/15/22 14:50 Trach Collar 10.00 12/15/22 14:40 16 145/89 (107) 100 Trach Collar 10.00 12/15/22 14:34 Trach Collar 10.00 12/15/22 14:34 37.6 21 147/92 (110) 99 Trach Collar 10.00 12/15/22 13:49 36.6 106 98 30 12/15/22 11:47 36.6 106 20 116/72 (87) 98 Trach Collar 8.00 12/15/22 11:14 99 Trach Collar 8.00 30 12/15/22 08:46 36.6 120 20 133/90 (104) 97 Trach Collar 8.00 12/15/22 08:00 Trach Collar 8.00 30 12/15/22 07:18 99 Trach Collar 8.00 30 I & O 12/16/22 07:00 Intake Total 1230 ml Balance 1230 ml Capillary Refill : Less Than 3 Seconds General Appearance: No Apparent Distress, Chronically ill, Obese HEENT: PERRL/EOMI, Moist Mucous Membranes Neck: Other (tracheostomy in place) Respiratory: Lungs Clear, Normal Breath Sounds, No Accessory Muscle Use, No Respiratory Distress Cardiovascular: No Murmur, Tachycardia Peripheral Pulses: 3+ Dorsalis Pedis (R), 3+ Left Dors-Pedis (L), 3+ Radial Pulses (R), 3+ Radial Pulses (L) Gastrointestinal: soft, abnormal bowel sounds (hypoactive), tenderness (LUQ tender to deep palpation. ) Extremity: No Calf Tenderness, No Pedal Edema Neurologic/Psychiatric: Alert Skin: Normal Color, Warm/Dry Results Lab Laboratory Tests 12/16/22 04:15: White Blood Count 12.0H, Red Blood Count 4.21, Hemoglobin 10.9L, Hematocrit 35, Mean Corpuscular Volume 84, Mean Corpuscular Hemoglobin 26, Mean Corpuscular Hemoglobin Concent 31L, Red Cell Distribution Width 15.4H, Platelet Count 279, Mean Platelet Volume 10.7, Immature Granulocyte % (Auto) 1, Neutrophils (%) (Auto) 78H, Lymphocytes (%) (Auto) 15, Monocytes (%) (Auto) 6, Eosinophils (%) (Auto) 0, Basophils (%) (Auto) 0, Neutrophils # (Auto) 9.4H, Lymphocytes # (Auto) 1.8, Monocytes # (Auto) 0.7, Eosinophils # (Auto) 0.1, Basophils # (Auto) 0.0, Immature Granulocyte # (Auto) 0.1, Sodium Level 140, Potassium Level 3.5L, Chloride Level 106, Carbon Dioxide Level 24, Anion Gap 10, Blood Urea Nitrogen 18, Creatinine 1.84H, Estimat Glomerular Filtration Rate 31, BUN/Creatinine Ratio 10, Glucose Level 91, Calcium Level 9.0, Corrected Calcium 9.7, Total Bilirubin 0.5, Aspartate Amino Transf (AST/SGOT) 51H, Alanine Aminotransferase (ALT/SGPT) 64H, Alkaline Phosphatase 131, Total Protein 7.6, Albumin 3.1L Microbiology 12/07/22 Blood Culture - Final, Complete No growth 12/07/22 Urine Culture - Final, Complete Proteus mirabilis Mixed Bacterial Genie See Comments Assessment/Plan Assessment/Plan Assessment/Plan Partial small bowel Obstruction - secondary to diagnosis below Metastatic Endometrial CA with increase LN in abdomen Morbid Obesity New Vashti-cath placed yesterday on right side. Patient having soreness but no pain. No BM or flatus. Patient encouraged to ambulate and is to continue supplemental O2 and IV fluids. BRENNEN DANIELSON DO 12/16/22 0958: Subjective Time Seen by a Provider: 09:44 Subjective/Events-last exam Pt seen and examined, no new complaints. Nurse states port is working great. Pt states still no flatus or BM, but does not feel bloated. Review of Systems Pulmonary: No Dyspnea, No Cough Cardiovascular: No: Chest Pain, Palpitations Gastrointestinal: Vomiting (one time this morning.), Abdominal Pain (comes and goes); No: Nausea Genitourinary: No Dysuria, No Frequency Musculoskeletal: shoulder pain Objective Exam General Appearance: No Apparent Distress, Chronically ill, Obese HEENT: PERRL/EOMI, Moist Mucous Membranes Respiratory: Lungs Clear, Normal Breath Sounds, No Accessory Muscle Use, No Respiratory Distress Cardiovascular: No Murmur, Tachycardia Gastrointestinal: soft, abnormal bowel sounds (hypoactive), tenderness (LUQ tender to deep palpation. ) Extremity: No Calf Tenderness, No Pedal Edema Neurologic/Psychiatric: Alert, Oriented x3 Assessment/Plan Assessment/Plan Assessment/Plan Complete small bowel Obstruction - secondary to diagnosis below Metastatic Endometrial CA with increase LN in abdomen Morbid Obesity New Vashti-cath placed yesterday on right side. Patient having soreness but no pain. No BM or flatus. Patient encouraged to ambulate and is to continue supplemental O2 and IV fluids. Hopefully starting chemo today, may need TPN but pt still deciding what she wants to do. Supervisory-Addendum Brief Verification & Attestation Participated in pt care: history, MDM, physical Personally performed: exam, history, MDM, supervision of care Care discussed with: Medical Student Procedures: n/a Verification and Attestation of Medical Student E/M Service A medical student performed and documented this service. I then reviewed and verified all information documented by the medical student and made modifications to such information, when appropriate. I personally performed a physical exam, medical decision making and then discussed any differences between the notes and made revisions as necessary to create one note. Brennen Danielson , 12/16/22 , 09:58 HAILEY PUENTE December 16, 2022 06:48 BRENNEN DANIELSON DO December 16, 2022 09:58
[2022-12-16 07:24] VITALS: BP 131/81
[2022-12-16] MEDS: DOCUSATE SODIUM 100 MG (COLACE) CAP PO SCH ×2 (08:14→19:52)
[2022-12-16] MEDS: ENOXAPARIN 60 MG/0.6 ML (LOVENOX) SYR SC SCH (08:14)
[2022-12-16] MEDS: SENNOSIDES 8.6 MG (SENOKOT) TAB PO SCH ×2 (08:14→19:53)
[2022-12-16] MEDS: RT-ALBUTEROL/IPRATROPIUM 3 ML (DUONEB) VIAL INH SCH ×4 (08:15→18:44)
[2022-12-16] MEDS: 1/2 NS IV SOLUTION 1,000 ML IV SCH ×2 (10:01→19:46)
[2022-12-16 11:38] VITALS: BP 146/94
--- NOTE | 2022-12-16 11:51 | Diagnostic Imaging Report ---
CHEST 1 VIEW, AP/PA ONLY Indication: NG tube placement. Comparison: 12/14/2021 Findings: NG tube has tip and side-port terminating in the proximal stomach. Stable tracheostomy tube. Bibasilar linear atelectasis noted. No pleural effusion or pneumothorax. Normal heart size. Left-sided Port-A-Cath has been replaced with a right-sided Port-A-Cath. Impression: 1. Well-positioned NG tube. Dictated by: Dictated on workstation # [id number]
--- NOTE | 2022-12-16 15:23 | Progress Note ---
Subjective Subjective/Events-last exam Patient feeling much better this AM. She had no nausea overnight but some this AM. Pain is better controlled this AM. She is taking sips of water Review of Systems General: Fatigue Pulmonary: No Dyspnea, No Cough Cardiovascular: No: Chest Pain, Palpitations, Edema Gastrointestinal: Nausea, Vomiting, Abdominal Pain; No: Diarrhea, Constipation Neurological: Weakness Objective Exam Last Set of Vital Signs Vital Signs Date Time Temp Pulse Resp B/P (MAP) Pulse Ox O2 Delivery O2 Flow Rate FiO2 12/16/22 11:38 36.5 109 18 146/94 (111) 96 Trach Collar 12/16/22 11:09 8.00 30 Capillary Refill : Less Than 3 Seconds I&O Intake and Output 12/16/22 00:00 Intake Total 930 ml Output Total 170 ml Balance 760 ml Intake Oral 930 ml Output Urine Total 170 ml # Voids 4 # Emeses 1 General: Alert, Oriented X3 Lungs: Clear to Auscultation, Normal Air Movement Heart: Regular Rate, No Murmurs Abdomen: Soft Extremities: No Tenderness/Swelling Neuro: Normal Speech Results/Procedures Lab Laboratory Tests 12/16/22 04:15: White Blood Count 12.0H, Red Blood Count 4.21, Hemoglobin 10.9L, Hematocrit 35, Mean Corpuscular Volume 84, Mean Corpuscular Hemoglobin 26, Mean Corpuscular Hemoglobin Concent 31L, Red Cell Distribution Width 15.4H, Platelet Count 279, Mean Platelet Volume 10.7, Immature Granulocyte % (Auto) 1, Neutrophils (%) (Auto) 78H, Lymphocytes (%) (Auto) 15, Monocytes (%) (Auto) 6, Eosinophils (%) (Auto) 0, Basophils (%) (Auto) 0, Neutrophils # (Auto) 9.4H, Lymphocytes # (Auto) 1.8, Monocytes # (Auto) 0.7, Eosinophils # (Auto) 0.1, Basophils # (Auto) 0.0, Immature Granulocyte # (Auto) 0.1, Sodium Level 140, Potassium Level 3.5L, Chloride Level 106, Carbon Dioxide Level 24, Anion Gap 10, Blood Urea Nitrogen 18, Creatinine 1.84H, Estimat Glomerular Filtration Rate 31, BUN/Creatinine Ratio 10, Glucose Level 91, Calcium Level 9.0, Corrected Calcium 9.7, Total Bilirubin 0.5, Aspartate Amino Transf (AST/SGOT) 51H, Alanine Aminotransferase (ALT/SGPT) 64H, Alkaline Phosphatase 131, Total Protein 7.6, Albumin 3.1L Microbiology 12/07/22 Blood Culture - Final, Complete No growth 12/07/22 Urine Culture - Final, Complete Proteus mirabilis Mixed Bacterial Genie See Comments Radiology Date of Exam:12/07/22 CT ABD/PELVIS WO(KIDNEY STONE) PROCEDURE: CT urinary tract, rule out kidney stone. TECHNIQUE: Multiple contiguous axial images were obtained through the abdomen and pelvis without the use of intravenous contrast. Auto Exposure Controls were utilized during the CT exam to meet ALARA standards for radiation dose reduction. INDICATION: Right lower pelvic pain. COMPARISON: CT abdomen pelvis 04/02/2022. FINDINGS: Included views of the lung bases demonstrate bibasilar subsegmental atelectasis. The liver, spleen, pancreas, and adrenal glands are normal. Postcholecystectomy changes. Moderate left hydronephrosis without evidence of nephrolithiasis. There is a phlebolith in the pelvis. The urinary bladder is decompressed. The right kidney is normal. Diffuse small bowel distention with agency service representative small bowel loop measuring 3.8 cm. Some of these bowels demonstrate air-fluid levels. There is relative decompressed: There are multiple enlarged mesenteric lymph nodes with surrounding fat stranding. One of the lymph nodes measures 1.3 x 1.3 cm multiple other enlarged mesenteric lymph nodes are identified. Enlarged pelvic lymph nodes are also seen, for instance left pelvic lymph node measuring 1.4 x 1.4 cm (image 131 series 2). Enlarged retroperitoneal lymph nodes, measuring 2.1 x 1.5 cm. The osseous structures demonstrate no lytic or sclerotic bone lesions. Moderate multilevel facet arthritis in the lumbar spine. Small fat-containing umbilical hernia. IMPRESSION: Diffuse small bowel distention may represent small bowel obstruction or ileus. Moderate left hydronephrosis without evidence of nephrolithiasis. This may be seen with an infectious process, neoplasm, or other etiologies. Consider correlation with urinalysis and postcontrast CT of the abdomen and pelvis for further assessment. Enlarged mesenteric, retroperitoneal, and pelvic lymph nodes concerning for malignancy. Continued workup is required which may include a PET scan. Dictated by: Dictated on workstation # [id number] Dict: 12/07/222048 Trans: 12/07/222058 [facility] [id number] Interpreted by: NATANAEL MARTELL DO Electronically signed by: NATANAEL MARTELL DO 12/07/222058 Assessment/Plan Assessment/Plan (1) Small bowel obstruction Status: Acute Assessment & Plan: 12/13: NPO, bowel rest, General surgery consulted, appreciate recommendations, Jagjit to call Surgical Oncologist 12/14: Jagjit spoke with Antoine and not a good surgical candidate, Plan to try and start chemo while in hospital to help with resolution of SBO 12/15: Replacing port today, consult placed for oncology 12/16: Port replaced and functioning, plan for palliative chemotherapy in the AM (2) Urinary tract infection Status: Acute Assessment & Plan: 12/13: Continue IV antibiotics 12/16: Completed antibiotics Qualifiers: Qualified Codes: N39.0 - Urinary tract infection, site not specified (3) Acute on chronic renal failure Status: Acute Assessment & Plan: 12/14: Improved, trending down close to baseline (4) Endometrial cancer Status: Acute Assessment & Plan: 12/15: Not a good surgical candidate (5) COPD (chronic obstructive pulmonary disease) Status: Chronic BRITT VELASCO MD December 16, 2022 15:23
[2022-12-16 15:40] VITALS: BP 146/97
--- NOTE | 2022-12-16 17:33 | CONSULTATION REPORT ---
The patient is admitted to room 405. PHYSICIAN REQUESTING CONSULTATION: Dr. Odilia Dobson. PRIMARY PHYSICIAN: Dorcas Aaron MD. IMPRESSION: 1. A 62-year-old -[place] female admitted to the hospital with abdominal pain, nausea and vomiting and found to have bowel obstruction due to peritoneal carcinomatosis and omental caking. 2. Previous history of serous papillary carcinoma of the endometrium, diagnosed in mid 2021. She underwent a TAHBSO with debulking and pelvic washings in May 2022 with positive pelvic washings. She was recommended adjuvant chemotherapy and took one course of treatment with carboplatin and paclitaxel regimen in July 2022. She had a minor allergic reaction to Taxol, which was stopped and received only the carboplatin dose. The patient decided to discontinue chemotherapy. Recently, she was noted to have increasing abdominal pain and restaging scans showed evidence of omental caking with elevated CA-125 level indicating peritoneal carcinomatosis. She was being prepared for outpatient chemotherapy, but presented to the emergency room with abdominal pain, nausea and vomiting and evidence of obstruction. She was admitted to the hospital with bowel rest, but has not had any bowel movements or flatus over the past few days. Medical oncology consultation was requested for further recommendations and options. PAST MEDICAL HISTORY: Significant for hypertension, COPD, sarcoidosis of the lung, hepatitis C, which was treated in 2005 with clearance of virus and history of anal cancer, underwent chemoradiation in 2011 with [ ]. PAST SURGICAL HISTORY: Prior surgeries include cholecystectomy in 2020, laparoscopic hysterectomy and bilateral salpingo-oophorectomy in 2021, tracheostomy in 2003 which is still maintained. FAMILY HISTORY: Significant for hypertension in her mother and sister, cardiovascular disease in her sister, nephew with hypertension. No other malignancies in the family that the patient knows of. SOCIAL HISTORY: The patient is and lives alone in [place], [place]. She has 2 children, a son and a daughter, both of whom live in [place]. 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 She is a former smoker, smoking 2 packs of cigarettes a day for more than 20 years and quit in 2003. She has used alcohol in the past, but quit in 2016. No recreational drug use. PHYSICAL EXAMINATION: GENERAL: Showed an elderly female, obese, awake and oriented, in mild distress due to nausea. HEENT: Normocephalic, extraocular muscles intact. Conjunctivae pink, oral mucosa slightly dry. NECK: Supple with no JVD. Tracheostomy present with oxygen delivered through a mask. NODES: No cervical, supraclavicular or axillary lymphadenopathy palpable. CHEST: Symmetrical. LUNGS: With diminished breath sounds bilaterally without wheezes or rales. CARDIOVASCULAR: Regular in rate and rhythm. No murmurs or gallops heard. ABDOMEN: Obese, soft with mild diffuse tenderness. No definite hepatosplenomegaly or other masses palpable. Abdominal sounds were significantly diminished with few tympanitic sounds. EXTREMITIES: Showed no edema. NEUROLOGIC: Showed no focal motor deficits. CBC done today showed WBC 12.0, hemoglobin 10.9, platelet count 279,000 with neutrophil count 9.4, lymphocyte count 1.8, monocyte count 0.7. Chemistry panel showed normal electrolytes except potassium level of 3.5. BUN was 18 and creatinine 1.84 with GFR 31 mL per minute. AST was minimally elevated at 51 and ALT 64 with rest of the liver function studies within normal limits. Serum albumin was 3.1. The patient had a CT scan of the abdomen and pelvis on 12/07/2022 at the Emergency Room, which showed diffuse small bowel distention, which may represent obstruction or ileus. Moderate left hydronephrosis without evidence of nephrolithiasis. Enlarged mesenteric, retroperitoneal and pelvic lymph nodes concerning for malignancy. Small fat-containing umbilical hernia. Small bowel x-rays showed evidence of small-bowel obstruction, no evidence of contrast within the colon at 1900 hours is highly suggestive of obstruction. IMPRESSION: 1. Serous papillary carcinoma of the endometrium, status post laparoscopic hysterectomy and bilateral salpingo-oophorectomy in May 2022 with positive pelvic washings. 2. Adjuvant chemotherapy with carboplatin and paclitaxel x1 in July 2022. The patient had mild allergic reaction to paclitaxel, which was discontinued, but received full dose of carboplatin. The patient decided not to continue adjuvant chemotherapy. 3. Recent increased abdominal pain and restaging scans with evidence of omental caking. She also had elevated CA-125 level, indicating recurrent malignancy with peritoneal carcinomatosis. 4. Progressive metastatic disease with small-bowel obstruction and hydronephrosis. Discussed options and surgery is not an option. Dr. Danielson had contacted Dr. Peyton Cornelius who concurred with this opinion. 5. Palliative chemotherapy with weekly carboplatin and Abraxane regimen could be tried with the hope of debulking the [ ] and relieving the obstruction. The chance that this would work is more. Only other option is continued best supportive care with hospice. 6. After discussing the pros and cons, the patient was willing to try the weekly chemotherapy. I discussed the case with Dr. Dobson and nursing administration. Orders were written including appropriate premedications. Chemotherapy will start on 12/17/2022. 7. Consider NG tube with low intermittent suction to prevent vomiting and for comfort. 8. Her overall prognosis is guarded and the patient understands this. I will follow the patient with you and make appropriate recommendations. CC: Dorcas Aaron MD ? requested, unable to deliver Job ID: [id number] DocumentID: [id number] Dictated Date: 12/16/2022 16:49:31 Block Captain Date: 12/16/2022 17:32:00 Dictated By: MARLO HAWKINS MD
[2022-12-16 19:17] VITALS: BP 147/89
[2022-12-16 23:33] VITALS: BP 149/89
[2022-12-17] VITALS (8 sets, daily range): BP systolic 126–147; BP diastolic 77–98
[2022-12-17] MEDS: ENOXAPARIN 60 MG/0.6 ML (LOVENOX) SYR SC SCH ×3 (00:55→20:32)
[2022-12-17 04:21] LABS: BASOPHILS % (AUTO) 0 % (0-10); EOSINOPHILS # (AUTO) 0.1 10^3/uL (0.0-0.3); EOSINOPHILS % (AUTO) 0 % (0-10); HEMATOCRIT 35 % (35-52); HEMOGLOBIN 10.6 g/dL (11.5-16.0); LYMPHOCYTES # (AUTO) 1.9 10^3/uL (1.0-4.0); LYMPHOCYTES % (AUTO) 16 % (12-44); MEAN CORPUSCULAR HEMOGLOBIN 26 pg (25-34); MEAN CORPUSCULAR HGB CONC 30 g/dL (32-36); MEAN CORPUSCULAR VOLUME 84 fL (80-99); MONOCYTES # (AUTO) 0.8 10^3/uL (0.0-1.0); MONOCYTES % (AUTO) 7 % (0-12); NEUTROPHILS % (AUTO) 75 % (42-75); PLATELET COUNT 251 10^3/uL (130-400); WHITE BLOOD COUNT 11.9 10^3/uL (4.3-11.0)
[2022-12-17 04:43] LABS: ALBUMIN 2.9 GM/DL (3.2-4.5); BILIRUBIN,TOTAL 0.5 MG/DL (0.1-1.0); CALCIUM 8.6 MG/DL (8.5-10.1); CREATININE SERUM 1.75 MG/DL (0.60-1.30); POTASSIUM 3.4 MMOL/L (3.6-5.0); TOTAL PROTEIN 7.2 GM/DL (6.4-8.2)
[2022-12-17] MEDS: 1/2 NS IV SOLUTION 1,000 ML IV SCH ×3 (05:56→23:45)
[2022-12-17] MEDS: RT-ALBUTEROL/IPRATROPIUM 3 ML (DUONEB) VIAL INH SCH ×4 (07:07→19:23)
--- NOTE | 2022-12-17 07:29 | Progress Note - Surgery ---
CINDIARYAHAILEY 12/17/22 0729: Subjective Date Seen by a Provider: December 17, 2022 Time Seen by a Provider: 07:15 Subjective/Events-last exam Patient reports she had an episode of abdominal pain last night and received pain medication. Reports no abdominal pain since. States that she had her NG t ube placed yesterday. Reports no nausea, vomiting or abdominal pain. No BM or flatus Nurse reports the port is working well. Review of Systems General: No Chills, No Night Sweats HEENT: No Head Aches, No Visual Changes Pulmonary: No Dyspnea, No Cough Cardiovascular: No: Chest Pain, Palpitations Gastrointestinal: No: Nausea, Vomiting, Abdominal Pain Genitourinary: No Dysuria, No Frequency Musculoskeletal: No: neck pain, shoulder pain Neurological: No: Change in speech, Confusion Objective Exam Vital Signs Date Time Temp Pulse Resp B/P (MAP) Pulse Ox O2 Delivery O2 Flow Rate FiO2 12/17/22 07:08 99 Trach Collar 8.00 30 12/17/22 03:43 35.8 99 16 130/82 (98) 95 Trach Collar 8.00 12/16/22 23:33 36.6 99 16 149/89 (109) 96 Trach Collar 8.00 12/16/22 19:30 Trach Collar 12/16/22 19:17 36.5 120 18 147/89 (108) 96 Trach Collar 30.00 8.00 12/16/22 18:44 95 Trach Collar 8.00 30 12/16/22 15:40 36.2 122 20 146/97 (113) 97 Trach Collar 30.00 8.00 12/16/22 15:28 Trach Collar 8.00 30 12/16/22 11:38 36.5 109 18 146/94 (111) 96 Trach Collar 12/16/22 11:09 94 Trach Collar 8.00 30 12/16/22 08:20 94 Trach Collar 8.00 30 12/16/22 08:15 Trach Collar 8.00 I & O 12/17/22 06:59 Intake Total 895 ml Output Total 2825 ml Balance -1930 ml Capillary Refill : Less Than 3 Seconds General Appearance: No Apparent Distress, Chronically ill, Obese HEENT: PERRL/EOMI, Moist Mucous Membranes, Other (NG tube present in left nare) Neck: Other (tracheostomy in place) Respiratory: Lungs Clear, Normal Breath Sounds, No Accessory Muscle Use, No Respiratory Distress Cardiovascular: No Murmur, Tachycardia Peripheral Pulses: 3+ Dorsalis Pedis (R), 3+ Left Dors-Pedis (L), 3+ Radial Pulses (R), 3+ Radial Pulses (L) Gastrointestinal: soft, abnormal bowel sounds (hypoactive); No guarding, No tenderness Extremity: No Calf Tenderness, No Pedal Edema Neurologic/Psychiatric: Alert, Oriented x3 Skin: Normal Color, Warm/Dry Results Lab Laboratory Tests 12/17/22 04:16: White Blood Count 11.9H, Red Blood Count 4.16, Hemoglobin 10.6L, Hematocrit 35, Mean Corpuscular Volume 84, Mean Corpuscular Hemoglobin 26, Mean Corpuscular Hemoglobin Concent 30L, Red Cell Distribution Width 15.3H, Platelet Count 251, Mean Platelet Volume 10.0, Immature Granulocyte % (Auto) 2, Neutrophils (%) (Aut o) 75, Lymphocytes (%) (Auto) 16, Monocytes (%) (Auto) 7, Eosinophils (%) (Auto) 0, Basophils (%) (Auto) 0, Neutrophils # (Auto) 9.0H, Lymphocytes # (Auto) 1.9, Monocytes # (Auto) 0.8, Eosinophils # (Auto) 0.1, Basophils # (Auto) 0.0, Immature Granulocyte # (Auto) 0.2H, Sodium Level 140, Potassium Level 3.4L, Chloride Level 104, Carbon Dioxide Level 21, Anion Gap 15H, Blood Urea Nitrogen 19H, Creatinine 1.75H, Estimat Glomerular Filtration Rate 33, BUN/Creatinine Ratio 11, Glucose Level 81, Calcium Level 8.6, Corrected Calcium 9.5, Total Bilirubin 0.5, Aspartate Amino Transf (AST/SGOT) 28, Alanine Aminotransferase (ALT/SGPT) 36, Alkaline Phosphatase 130, Total Protein 7.2, Albumin 2.9L Microbiology 12/07/22 Blood Culture - Final, Complete No growth 12/07/22 Urine Culture - Final, Complete Proteus mirabilis Mixed Bacterial Genie See Comments Assessment/Plan Assessment/Plan Assessment/Plan Complete small bowel Obstruction - secondary to diagnosis below Metastatic Endometrial CA with increase LN in abdomen Morbid Obesity Possibility of starting chemo today. No BM or flatus. Patient encouraged to ambulate and continue supplemental O2 and IV fluids. BRENNEN HERCULES DO 12/17/22 1014: Subjective Time Seen by a Provider: 09:42 Subjective/Events-last exam Pt seen and examined, had NGT placed last night. She denies abdominal pain, but also no flatus or BM. Review of Systems Pulmonary: No Dyspnea, No Cough Cardiovascular: No: Chest Pain, Palpitations Gastrointestinal: Nausea (last night), Vomiting (last night); No: Abdominal Pain Genitourinary: No Dysuria, No Frequency Objective Exam General Appearance: No Apparent Distress, Chronically ill, Obese HEENT: PERRL/EOMI, Moist Mucous Membranes, Other (NG tube present in left nare) Neck: Other (tracheostomy in place) Respiratory: Lungs Clear, Normal Breath Sounds, No Accessory Muscle Use, No Respiratory Distress Cardiovascular: No Murmur, Tachycardia Gastrointestinal: soft, abnormal bowel sounds (hypoactive); No guarding, No tenderness Extremity: No Calf Tenderness, No Pedal Edema Neurologic/Psychiatric: Alert, Oriented x3 Assessment/Plan Assessment/Plan Assessment/Plan Complete small bowel Obstruction - secondary to diagnosis below Metastatic Endometrial CA with increase LN in abdomen Morbid Obesity Starting chemo today at around 10 am. Pain control and anti-emetics as needed. NGT to LIWS. Patient encouraged to ambulate and continue supplemental O2 and IV fluids. I had a discussion with Dr. Dobson regarding her care, long-term prognosis and other options. Dr. Dobson is talking to pt about hospice. Supervisory-Addendum Brief Verification & Attestation Participated in pt care: history, MDM, physical Personally performed: exam, history, MDM, supervision of care Care discussed with: Medical Student Procedures: n/a Verification and Attestation of Medical Student E/M Service A medical student performed and documented this service. I then reviewed and verified all information documented by the medical student and made modifications to such information, when appropriate. I personally performed a physical exam, medical decision making and then discussed any differences between the notes and made revisions as necessary to create one note. Brennen Hercules , 12/17/22 , 10:13 HAILEY PUENTE December 17, 2022 07:29 BRENNEN HERCULES DO December 17, 2022 10:14
[2022-12-17] MEDS ORDERED: PALONOSETRON HCL 0.25 MG, dexAMETHasone INJECTION 10 MG in NS (IVPB) 50 ML IV SCH (08:00)
[2022-12-17] MEDS ORDERED: NS IV 1000 ML (CANCER CTR) IV SCH (08:00)
[2022-12-17] MEDS ORDERED: CARBOPLATIN IV SCH (08:00)
[2022-12-17] MEDS ORDERED: NS IV SCH (08:00)
[2022-12-17] MEDS ORDERED: PACLitaxel PROTEIN 160 MG in EMPTY IV BAG (PVC) CANCER CTR 1 EA IV SCH (08:00)
[2022-12-17] MEDS: HYDROmorphone 2 MG/ML VIAL (DILAUDID) IV PRN (08:11)
[2022-12-17] MEDS: SENNOSIDES 8.6 MG (SENOKOT) TAB PO SCH ×2 (08:16→20:27)
[2022-12-17] MEDS: DOCUSATE SODIUM 100 MG (COLACE) CAP PO SCH ×2 (08:16→20:27)
--- NOTE | 2022-12-17 10:06 | Progress Note ---
Subjective Subjective/Events-last exam Patient doing well this AM. NG in place. She states that pain is well controlled. Review of Systems General: Fatigue Pulmonary: No Dyspnea, No Cough Cardiovascular: No: Chest Pain, Palpitations, Edema Gastrointestinal: Nausea; No: Vomiting, Abdominal Pain, Diarrhea, Constipation Objective Exam Last Set of Vital Signs Vital Signs Date Time Temp Pulse Resp B/P (MAP) Pulse Ox O2 Delivery O2 Flow Rate FiO2 12/17/22 08:00 36.7 123 20 129/77 (94) 94 Room Air 12/17/22 07:08 8.00 30 Capillary Refill : Less Than 3 Seconds I&O Intake and Output 12/17/22 00:00 Intake Total 1395 ml Output Total 1525 ml Balance -130 ml Intake Oral 1395 ml Output Urine Total 275 ml Gastric Drainage Total 1250 ml # Voids 4 General: Alert, Oriented X3, No Acute Distress HEENT: Other (NG in place draining bilious fluid) Lungs: Clear to Auscultation, Normal Air Movement Heart: Regular Rate, No Murmurs Abdomen: Soft, No Tenderness Neuro: Normal Speech Results/Procedures Lab Laboratory Tests 12/17/22 04:16: White Blood Count 11.9H, Red Blood Count 4.16, Hemoglobin 10.6L, Hematocrit 35, Mean Corpuscular Volume 84, Mean Corpuscular Hemoglobin 26, Mean Corpuscular Hemoglobin Concent 30L, Red Cell Distribution Width 15.3H, Platelet Count 251, Mean Platelet Volume 10.0, Immature Granulocyte % (Auto) 2, Neutrophils (%) (Auto) 75, Lymphocytes (%) (Auto) 16, Monocytes (%) (Auto) 7, Eosinophils (%) (Auto) 0, Basophils (%) (Auto) 0, Neutrophils # (Auto) 9.0H, Lymphocytes # (Auto) 1.9, Monocytes # (Auto) 0.8, Eosinophils # (Auto) 0.1, Basophils # (Auto) 0.0, Immature Granulocyte # (Auto) 0.2H, Sodium Level 140, Potassium Level 3.4L, Chloride Level 104, Carbon Dioxide Level 21, Anion Gap 15H, Blood Urea Nitrogen 19H, Creatinine 1.75H, Estimat Glomerular Filtration Rate 33, BUN/Creatinine Ratio 11, Glucose Level 81, Calcium Level 8.6, Corrected Calcium 9.5, Total Bilirubin 0.5, Aspartate Amino Transf (AST/SGOT) 28, Alanine Aminotransferase (ALT/SGPT) 36, Alkaline Phosphatase 130, Total Protein 7.2, Albumin 2.9L Microbiology 12/07/22 Blood Culture - Final, Complete No growth 12/07/22 Urine Culture - Final, Complete Proteus mirabilis Mixed Bacterial Genie See Comments Radiology Date of Exam:12/07/22 CT ABD/PELVIS WO(KIDNEY STONE) PROCEDURE: CT urinary tract, rule out kidney stone. TECHNIQUE: Multiple contiguous axial images were obtained through the abdomen and pelvis without the use of intravenous contrast. Auto Exposure Controls were utilized during the CT exam to meet ALARA standards for radiation dose reduction. INDICATION: Right lower pelvic pain. COMPARISON: CT abdomen pelvis 04/02/2022. FINDINGS: Included views of the lung bases demonstrate bibasilar subsegmental atelectasis. The liver, spleen, pancreas, and adrenal glands are normal. Postcholecystectomy changes. Moderate left hydronephrosis without evidence of nephrolithiasis. There is a phlebolith in the pelvis. The urinary bladder is decompressed. The right kidney is normal. Diffuse small bowel distention with quality control representative small bowel loop measuring 3.8 cm. Some of these bowels demonstrate air-fluid levels. There is relative decompressed: There are multiple enlarged mesenteric lymph nodes with surrounding fat stranding. One of the lymph nodes measures 1.3 x 1.3 cm multiple other enlarged mesenteric lymph nodes are identified. Enlarged pelvic lymph nodes are also seen, for instance left pelvic lymph node measuring 1.4 x 1.4 cm (image 131 series 2). Enlarged retroperitoneal lymph nodes, measuring 2.1 x 1.5 cm. The osseous structures demonstrate no lytic or sclerotic bone lesions. Moderate multilevel facet arthritis in the lumbar spine. Small fat-containing umbilical hernia. IMPRESSION: Diffuse small bowel distention may represent small bowel obstruction or ileus. Moderate left hydronephrosis without evidence of nephrolithiasis. This may be seen with an infectious process, neoplasm, or other etiologies. Consider correlation with urinalysis and postcontrast CT of the abdomen and pelvis for further assessment. Enlarged mesenteric, retroperitoneal, and pelvic lymph nodes concerning for malignancy. Continued workup is required which may include a PET scan. Dictated by: Dictated on workstation # [id number] Dict: 12/07/222048 Trans: 12/07/222058 [facility] [id number] Interpreted by: NATANAEL MARTELL DO Electronically signed by: NATANAEL MARTELL DO 12/07/222058 Assessment/Plan Assessment/Plan (1) Small bowel obstruction Status: Acute Assessment & Plan: 12/13: NPO, bowel rest, General surgery consulted, appreciate recommendations, Jagjit to call Surgical Oncologist 12/14: Jagjit spoke with Antoine and not a good surgical candidate, Plan to try and start chemo while in hospital to help with resolution of SBO 12/15: Replacing port today, consult placed for oncology 12/16: Port replaced and functioning, plan for palliative chemotherapy in the AM 12/17: NG in place draining bilious fluid, plan for chemo today (2) Urinary tract infection Status: Resolved Assessment & Plan: 12/13: Continue IV antibiotics 12/16: Completed antibiotics Qualifiers: Qualified Codes: N39.0 - Urinary tract infection, site not specified (3) Acute on chronic renal failure Status: Acute Assessment & Plan: 12/14: Improved, trending down close to baseline 12/17: Cr continues to improve, near baseline (4) Endometrial cancer Status: Acute Assessment & Plan: 12/15: Not a good surgical candidate (5) COPD (chronic obstructive pulmonary disease) Status: Chronic BRITT VELASCO MD December 17, 2022 10:06
[2022-12-17] MEDS ORDERED: ACETAMINOPHEN 500 MG TAB (TYLENOL) PO PRN (11:15)
[2022-12-17] MEDS ORDERED: methylPREDNISolone 125 MG (Solu-MEDROL) VIAL IM PRN (11:15)
[2022-12-18 03:48] VITALS: BP 158/98
[2022-12-18] MEDS: HYDROmorphone 2 MG/ML VIAL (DILAUDID) IV PRN ×2 (03:48→21:34)
[2022-12-18 04:13] LABS: BASOPHILS % (AUTO) 0 % (0-10); EOSINOPHILS % (AUTO) 0 % (0-10); HEMATOCRIT 34 % (35-52); HEMOGLOBIN 10.6 g/dL (11.5-16.0); LYMPHOCYTES # (AUTO) 1.6 10^3/uL (1.0-4.0); LYMPHOCYTES % (AUTO) 12 % (12-44); MEAN CORPUSCULAR HEMOGLOBIN 26 pg (25-34); MEAN CORPUSCULAR HGB CONC 31 g/dL (32-36); MEAN CORPUSCULAR VOLUME 83 fL (80-99); MEAN PLATELET VOLUME 10.8 fL (9.0-12.2); MONOCYTES # (AUTO) 0.6 10^3/uL (0.0-1.0); MONOCYTES % (AUTO) 4 % (0-12); NEUTROPHILS # (AUTO) 10.6 10^3/uL (1.8-7.8); NEUTROPHILS % (AUTO) 81 % (42-75); PLATELET COUNT 267 10^3/uL (130-400); WHITE BLOOD COUNT 13.1 10^3/uL (4.3-11.0)
[2022-12-18 04:33] LABS: ALBUMIN 2.9 GM/DL (3.2-4.5); BILIRUBIN,TOTAL 0.4 MG/DL (0.1-1.0); CREATININE SERUM 1.53 MG/DL (0.60-1.30); POTASSIUM 3.6 MMOL/L (3.6-5.0); TOTAL PROTEIN 7.2 GM/DL (6.4-8.2)
--- NOTE | 2022-12-18 06:01 | Progress Note - Hospitalist ---
Subjective HPI/CC On Admission Date Seen by Provider: December 18, 2022 Time Seen by Provider: 09:00 CC: SBO and UTI Subjective/Events-last exam No major changes TPN discussed No falls No pain reported NGT in place Review of Systems General: Fatigue, Malaise Objective Exam Vital Signs Vital Signs Date Time Temp Pulse Resp B/P (MAP) Pulse Ox O2 Delivery O2 Flow Rate FiO2 12/18/22 11:07 36.2 102 20 146/98 (114) 95 Trach Collar 8.00 12/18/22 08:00 30 Capillary Refill : Less Than 3 Seconds General Appearance: No Apparent Distress, WD/WN, Chronically ill Respiratory: Lungs Clear, Normal Breath Sounds Cardiovascular: Regular Rate, Rhythm Neurologic/Psychiatric: Alert, Oriented x3, No Motor/Sensory Deficits, Normal Mood/Affect Results/Procedures Lab Laboratory Tests 12/18/22 04:00 Patient resulted labs reviewed. Imaging: Reviewed Imaging Report Assessment/Plan Assessment and Plan Assess & Plan/Chief Complaint Assess & Plan/Chief Complaint SBO -not a surgical candidate Palliative chemotherapy yesterday UTI - UA + nitrites and bacteria - ucx +ve for Proteus mirabilis - cont zosyn - cont IVF - narrow abx as indicated by susceptibilities ALEKSANDRA - Cr down to 2.16 (/) - CT demonstrated some hydronephrosis but no nephrolithiasis - probably 2/2 surgical or radiation induced scarring - will likely need op f/u with urology for stent evaluation - not urgent at this time - cont IVF and ctm closely Endometrial cancer with mets - Recent radical hysterectomy - multiple reactive lymph nodes on CT abd - scheduled for chemo starting December 15 ROBINA MELLO DO December 18, 2022 06:01
[2022-12-18] MEDS: RT-ALBUTEROL/IPRATROPIUM 3 ML (DUONEB) VIAL INH SCH ×3 (06:47→21:17)
[2022-12-18 07:29] VITALS: BP 136/87
--- NOTE | 2022-12-18 08:07 | Progress Note - Surgery ---
JULES POWELL 12/18/22 0807: Subjective Date Seen by a Provider: December 18, 2022 Time Seen by a Provider: 07:59 Subjective/Events-last exam Pt was seen lying uncomfortably on her left side, stating it was because she was trying to alleviate tension from her trach and NG tube. She had her first round of chemo yesterday and said she felt like it went fine. She doesnt complain of any abd pain, but says that staff keeps messing with her NGT and that it feels like it isnt in the stomach and it causes mild discomfort. She says that today it hasnt been suctioning out as much as yesterday and that yesterday she thinks there was blood in the fluid collection. Today her suction looked light brown mixed with light green bile. She says she hasnt eaten or had anything since the NGT was placed. she denies n/v/d/c/f, chest pain, peripheral pain, SOB, lightheadedness, or anxiety. She endorses esophageal discomfort. Review of Systems General: No Chills, No Night Sweats HEENT: No Head Aches, No Visual Changes; Dysphasia (due to Trach and NG tube), Sore Throat Pulmonary: No Cough, No Pleuritic Chest Pain Cardiovascular: No: Chest Pain, Palpitations, Edema, Lt Headedness Gastrointestinal: Constipation; No: Nausea, Vomiting, Abdominal Pain Genitourinary: Dysuria, Retention Musculoskeletal: No: other, neck pain, shoulder pain, arm pain, back pain, hand pain, leg pain, foot pain Neurological: No: Weakness, Numbness, Confusion Objective Exam Vital Signs Date Time Temp Pulse Resp B/P (MAP) Pulse Ox O2 Delivery O2 Flow Rate FiO2 12/18/22 07:29 36.6 98 18 136/87 (103) 97 Trach Collar 8.00 12/18/22 03:48 36.9 109 18 158/98 (118) 95 Trach Collar 8.00 12/17/22 23:41 36.8 110 18 143/88 (106) 97 Trach Collar 8.00 12/17/22 20:44 Trach Collar 8.00 12/17/22 20:39 112 12/17/22 19:31 97 Trach Collar 8.00 30 12/17/22 19:30 36.4 115 20 146/98 (114) 96 Trach Collar 30.00 8.00 12/17/22 19:00 Trach Collar 8.00 30 12/17/22 18:11 115 140/81 (100) 12/17/22 17:39 36.8 121 24 147/95 (112) 94 Trach Collar 30.00 8.00 12/17/22 16:36 37.5 112 16 126/83 (97) 94 Trach Collar 30.00 8.00 12/17/22 15:17 97 Trach Collar 8.00 30 12/17/22 12:00 36.6 119 20 135/84 (101) 97 Trach Collar 8.00 12/17/22 10:58 95 Trach Collar 8.00 30 12/17/22 10:22 Trach Collar 12/17/22 08:00 36.7 123 20 129/77 (94) 94 Room Air I & O 12/18/22 07:00 Intake Total 0 ml Output Total 2500 ml Balance -2500 ml Capillary Refill : Less Than 3 Seconds General Appearance: Chronically ill, Mild Distress, Obese HEENT: PERRL/EOMI, Moist Mucous Membranes; No Photophobia; Other (NG tube present in left nare) Neck: Other (tracheostomy in place) Respiratory: Lungs Clear, No Accessory Muscle Use, No Respiratory Distress Cardiovascular: No Murmur, Tachycardia Peripheral Pulses: 3+ Radial Pulses (R), 3+ Radial Pulses (L) Gastrointestinal: soft, distended; No guarding, No tenderness Extremity: No Calf Tenderness, No Pedal Edema Neurologic/Psychiatric: Alert, Oriented x3 Skin: Normal Color, Warm/Dry; No Diaphoresis, No Ecchymosis Results Lab Laboratory Tests 12/18/22 04:00: White Blood Count 13.1H, Red Blood Count 4.09, Hemoglobin 10.6L, Hematocrit 34L, Mean Corpuscular Volume 83, Mean Corpuscular Hemoglobin 26, Mean Corpuscular Hemoglobin Concent 31L, Red Cell Distribution Width 15.2H, Platelet Count 267, Mean Platelet Volume 10.8, Immature Granulocyte % (Auto) 2, Neutrophils (%) (Auto) 81H, Lymphocytes (%) (Auto) 12, Monocytes (%) (Auto) 4, Eosinophils (%) (Auto) 0, Basophils (%) (Auto) 0, Neutrophils # (Auto) 10.6H, Lymphocytes # (Auto) 1.6, Monocytes # (Auto) 0.6, Eosinophils # (Auto) 0.0, Basophils # (Auto) 0.0, Immature Granulocyte # (Auto) 0.3H, Sodium Level 139, Potassium Level 3.6, Chloride Level 104, Carbon Dioxide Level 19L, Anion Gap 16H, Blood Urea Nitrogen 20H, Creatinine 1.53H, Estimat Glomerular Filtration Rate 39, BUN/Creatinine Ratio 13, Glucose Level 80, Calcium Level 9.0, Corrected Calcium 9.9, Total Bilirubin 0.4, Aspartate Amino Transf (AST/SGOT) 26, Alanine Aminotransferase (ALT/SGPT) 29, Alkaline Phosphatase 126, Total Protein 7.2, Albumin 2.9L Microbiology 12/07/22 Blood Culture - Final, Complete No growth 12/07/22 Urine Culture - Final, Complete Proteus mirabilis Mixed Bacterial Genie See Comments Assessment/Plan Assessment/Plan Assessment/Plan Complete small bowel Obstruction - secondary to diagnosis below Metastatic Endometrial CA with increase LN in abdomen Morbid Obesity * Pain control and anti-emetics as needed. * NGT to LIWS. * Patient encouraged to ambulate and continue supplemental O2 and IV fluids. * Establish with IM nutritional plan * Consider EGD if she continues to have blood in gastric drainage (currently she appears to be stable) LEONARD GARCIA DO 12/18/22 1031: Subjective Subjective/Events-last exam No flatus or stool. Ng tube in place. Chemo yesterday when okay. Has lump on right side of abdomen, slight tenderness. Near where she had some shots. Denies fever sweats chills shortness of breath or chest pain at this time. Objective Exam General Appearance: No Apparent Distress, Chronically ill; No Mild Distress; Obese HEENT: PERRL/EOMI, Normal ENT Inspection, Other (NG tube present in left nare) Neck: Non Tender, Supple, Other (tracheostomy in place) Respiratory: Chest Non Tender, No Accessory Muscle Use, No Respiratory Distress Cardiovascular: Regular Rate, Rhythm, No JVD Gastrointestinal: soft; No tenderness; other (obese, subcutaneous mass ruq- likely hematoma from shot) Extremity: No Calf Tenderness Neurologic/Psychiatric: Alert, Oriented x3, Depressed Affect Skin: Normal Color, Warm/Dry Lymphatic: No Adenopathy Assessment/Plan Assessment/Plan Assessment/Plan small bowel Obstruction - secondary to Metastatic Endometrial CA with increase LN in abdomen Morbid Obesity * Pain control and anti-emetics as needed. * NGT to LIWS. * Patient encouraged to ambulate and continue supplemental O2 and IV fluids. * Poor surgical candidate. * Hopefully chemo will help open but overall likely poor prognosis. Supervisory-Addendum Brief Verification & Attestation Participated in pt care: history, MDM, physical Personally performed: exam, history, MDM, supervision of care Care discussed with: Medical Student Procedures: n/a Results interpretation: Verified all documentation Verification and Attestation of Medical Student E/M Service A medical student performed and documented this service in my presence. I reviewed and verified all information documented by the medical student and made modifications to such information, when appropriate. I personally performed the physical exam and medical decision making. Leonard Garcia, December 18, 2022,10:31 JULES POWELL December 18, 2022 08:07 LEONARD GARCIA DO December 18, 2022 10:31
[2022-12-18 09:30] VITALS: BP 136/87
[2022-12-18] MEDS: 1/2 NS IV SOLUTION 1,000 ML IV SCH ×2 (09:45→19:58)
[2022-12-18] MEDS: SENNOSIDES 8.6 MG (SENOKOT) TAB PO SCH ×2 (09:59→19:39)
[2022-12-18] MEDS: ENOXAPARIN 60 MG/0.6 ML (LOVENOX) SYR SC SCH ×2 (09:59→20:00)
[2022-12-18] MEDS: DOCUSATE SODIUM 100 MG (COLACE) CAP PO SCH ×2 (10:00→19:39)
[2022-12-18 11:07] VITALS: BP 146/98
[2022-12-18 15:25] VITALS: BP 145/99
[2022-12-18 19:54] VITALS: BP 128/79
[2022-12-19 00:01] VITALS: BP 142/72
[2022-12-19 03:45] VITALS: BP 149/71
--- NOTE | 2022-12-19 07:27 | Progress Note - Hospitalist ---
Subjective HPI/CC On Admission Date Seen by Provider: December 19, 2022 Time Seen by Provider: 11:00 CC: SBO and UTI Subjective/Events-last exam No major issues Pain controlled Chemotherapy tolerated no anaphylaxis No falls NGT in place Review of Systems General: Fatigue, Malaise Gastrointestinal: Abdominal Pain Objective Exam Vital Signs Vital Signs Date Time Temp Pulse Resp B/P (MAP) Pulse Ox O2 Delivery O2 Flow Rate FiO2 12/19/22 11:02 36.6 100 18 127/75 (92) 95 Trach Collar 8.00 12/19/22 09:00 30 Capillary Refill : Less Than 3 Seconds General Appearance: No Apparent Distress, WD/WN, Chronically ill, Obese Respiratory: Lungs Clear, Normal Breath Sounds Cardiovascular: Regular Rate, Rhythm Neurologic/Psychiatric: Alert, Oriented x3, No Motor/Sensory Deficits, De pressed Affect Results/Procedures Lab Laboratory Tests 12/19/22 08:31 Patient resulted labs reviewed. Imaging: Reviewed Imaging Report Assessment/Plan Assessment and Plan Assess & Plan/Chief Complaint Assess & Plan/Chief Complaint SBO -not a surgical candidate -Palliative chemotherapy Tuesday UTI -s/p treatment ALEKSANDRA - Cr down to 2.16 (/) - CT demonstrated some hydronephrosis but no nephrolithiasis - probably 2/2 surgical or radiation induced scarring - will likely need op f/u with urology for stent evaluation - not urgent at this time - cont IVF and ctm closely Endometrial cancer with mets - Recent radical hysterectomy - multiple reactive lymph nodes on CT ROBINA Chase DO December 19, 2022 07:27
[2022-12-19] MEDS: DOCUSATE SODIUM 100 MG (COLACE) CAP PO SCH ×2 (07:42→20:16)
[2022-12-19] MEDS: SENNOSIDES 8.6 MG (SENOKOT) TAB PO SCH ×2 (07:43→20:16)
[2022-12-19] MEDS: RT-ALBUTEROL/IPRATROPIUM 3 ML (DUONEB) VIAL INH SCH ×3 (07:47→19:08)
[2022-12-19 07:48] VITALS: BP 121/78
[2022-12-19 08:42] LABS: ALBUMIN 2.8 GM/DL (3.2-4.5); POTASSIUM 3.3 MMOL/L (3.6-5.0)
[2022-12-19 08:43] LABS: CALCIUM 8.8 MG/DL (8.5-10.1)
[2022-12-19 08:44] LABS: TOTAL PROTEIN 6.8 GM/DL (6.4-8.2)
[2022-12-19 08:46] LABS: BILIRUBIN,TOTAL 0.5 MG/DL (0.1-1.0)
[2022-12-19 08:48] LABS: CREATININE SERUM 1.45 MG/DL (0.60-1.30)
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
[2022-12-19 09:08] LABS: BASOPHILS % (AUTO) 0 % (0-10); EOSINOPHILS % (AUTO) 0 % (0-10); HEMATOCRIT 34 % (35-52); HEMOGLOBIN 10.3 g/dL (11.5-16.0); LYMPHOCYTES # (AUTO) 1.2 10^3/uL (1.0-4.0); LYMPHOCYTES % (AUTO) 10 % (12-44); MEAN CORPUSCULAR HEMOGLOBIN 25 pg (25-34); MEAN CORPUSCULAR HGB CONC 31 g/dL (32-36); MEAN CORPUSCULAR VOLUME 84 fL (80-99); MEAN PLATELET VOLUME 10.8 fL (9.0-12.2); MONOCYTES # (AUTO) 0.5 10^3/uL (0.0-1.0); MONOCYTES % (AUTO) 5 % (0-12); NEUTROPHILS # (AUTO) 9.6 10^3/uL (1.8-7.8); NEUTROPHILS % (AUTO) 83 % (42-75); PLATELET COUNT 273 10^3/uL (130-400); WHITE BLOOD COUNT 11.5 10^3/uL (4.3-11.0)
[2022-12-19] MEDS: ENOXAPARIN 60 MG/0.6 ML (LOVENOX) SYR SC SCH ×2 (09:21→20:20)
[2022-12-19] MEDS: 1/2 NS IV SOLUTION 1,000 ML IV SCH ×2 (09:22→20:20)
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
[2022-12-19 11:02] VITALS: BP 127/75
[2022-12-19] MEDS: POTASSIUM CL 10MEQ/50ML IVPB 50 ML IV SCH ×3 (12:00→14:02)
[2022-12-19 15:19] VITALS: BP 114/80
[2022-12-19 19:45] VITALS: BP 142/93
[2022-12-20] VITALS (7 sets, daily range): BP systolic 114–136; BP diastolic 64–87
[2022-12-20] MEDS: HYDROmorphone 2 MG/ML VIAL (DILAUDID) IV PRN ×2 (00:51→17:17)
[2022-12-20] MEDS: 1/2 NS IV SOLUTION 1,000 ML IV SCH ×2 (04:46→15:13)
--- NOTE | 2022-12-20 05:20 | Progress Note - Hospitalist ---
Subjective HPI/CC On Admission Date Seen by Provider: December 20, 2022 Time Seen by Provider: 10:00 CC: SBO and UTI Subjective/Events-last exam No events Swing bed eval No pain NGT still in place Chemotherapy was tolerated Review of Systems General: Fatigue, Malaise Objective Exam Vital Signs Vital Signs Date Time Temp Pulse Resp B/P (MAP) Pulse Ox O2 Delivery O2 Flow Rate FiO2 12/20/22 20:02 Trach Collar 8.00 30 12/20/22 19:36 36.6 100 19 114/64 (81) 99 Capillary Refill : Less Than 3 Seconds General Appearance: No Apparent Distress, WD/WN, Chronically ill Respiratory: Lungs Clear, Normal Breath Sounds Cardiovascular: Regular Rate, Rhythm Neurologic/Psychiatric: Alert, Oriented x3, Depressed Affect Results/Procedures Lab Laboratory Tests 12/20/22 05:14 Patient resulted labs reviewed. Imaging: Reviewed Imaging Report Assessment/Plan Assessment and Plan Assess & Plan/Chief Complaint Assess & Plan/Chief Complaint SBO -not a surgical candidate -Palliative chemotherapy Tuesday UTI -s/p treatment ALEKSANDRA - Cr down to 1.5 - CT demonstrated some hydronephrosis but no nephrolithiasis - probably 2/2 surgical or radiation induced scarring - will likely need op f/u with urology for stent evaluation - not urgent at this time - cont IVF and ctm closely Endometrial cancer with mets - Recent radical hysterectomy - multiple reactive lymph nodes on CT ROBINA Chase DO December 20, 2022 05:20
[2022-12-20 05:25] LABS: BASOPHILS % (AUTO) 0 % (0-10); EOSINOPHILS # (AUTO) 0.1 10^3/uL (0.0-0.3); EOSINOPHILS % (AUTO) 1 % (0-10); HEMATOCRIT 32 % (35-52); LYMPHOCYTES # (AUTO) 1.4 10^3/uL (1.0-4.0); LYMPHOCYTES % (AUTO) 14 % (12-44); MEAN CORPUSCULAR HEMOGLOBIN 26 pg (25-34); MEAN CORPUSCULAR HGB CONC 31 g/dL (32-36); MEAN CORPUSCULAR VOLUME 83 fL (80-99); MEAN PLATELET VOLUME 10.7 fL (9.0-12.2); MONOCYTES # (AUTO) 0.4 10^3/uL (0.0-1.0); MONOCYTES % (AUTO) 4 % (0-12); NEUTROPHILS # (AUTO) 7.8 10^3/uL (1.8-7.8); NEUTROPHILS % (AUTO) 80 % (42-75); PLATELET COUNT 246 10^3/uL (130-400); WHITE BLOOD COUNT 9.8 10^3/uL (4.3-11.0)
[2022-12-20 05:41] LABS: ALBUMIN 2.7 GM/DL (3.2-4.5); BILIRUBIN,TOTAL 0.6 MG/DL (0.1-1.0); CALCIUM 8.7 MG/DL (8.5-10.1); CREATININE SERUM 1.5 MG/DL (0.60-1.30); POTASSIUM 3.4 MMOL/L (3.6-5.0); TOTAL PROTEIN 6.5 GM/DL (6.4-8.2)
--- NOTE | 2022-12-20 06:59 | Progress Note - Surgery ---
CINDIHAILEY 12/20/22 0659: Subjective Date Seen by a Provider: December 20, 2022 Time Seen by a Provider: 06:45 Subjective/Events-last exam Patient lying in bed resting. Patient states chemo is going well for her. Denies abodminal pain, nausea or vomiting. Patient reports no BM or passing gas. Patient was grateful for being allowed to have sips of water and popsicles. Review of Systems General: No Chills, No Night Sweats HEENT: No Head Aches, No Visual Changes Pulmonary: No Dyspnea, No Cough Cardiovascular: No: Chest Pain, Palpitations Gastrointestinal: No: Nausea, Vomiting, Abdominal Pain Genitourinary: No Dysuria, No Frequency Musculoskeletal: No: neck pain, shoulder pain Neurological: No: Change in speech, Confusion Objective Exam Vital Signs Date Time Temp Pulse Resp B/P (MAP) Pulse Ox O2 Delivery O2 Flow Rate FiO2 12/20/22 06:51 Trach Collar 8.00 30 12/20/22 04:04 36.6 115 20 123/83 (96) 98 Trach Collar 8.00 12/20/22 02:42 Trach Collar 8.00 30 12/20/22 00:02 36.6 115 20 136/82 (100) 96 Trach Collar 8.00 12/19/22 20:20 Trach Collar 8.00 30 12/19/22 19:45 36.9 120 20 142/93 (109) 96 Trach Collar 8.00 12/19/22 19:08 96 Trach Collar 8.00 30 12/19/22 15:47 Trach Collar 8.00 30 12/19/22 15:19 36.8 127 18 114/80 (91) 97 Room Air 12/19/22 11:02 36.6 100 18 127/75 (92) 95 Trach Collar 8.00 12/19/22 09:00 Trach Collar 8.00 30 12/19/22 07:49 97 Trach Collar 8.00 30 12/19/22 07:48 36.5 106 18 121/78 (92) 96 Trach Collar 8.00 I & O 12/20/22 06:59 Intake Total 2390 ml Output Total 1950 ml Balance 440 ml Capillary Refill : Less Than 3 Seconds General Appearance: No Apparent Distress, WD/WN, Chronically ill, Obese HEENT: PERRL/EOMI, Other (NG tube present in left nare) Neck: Non Tender, Supple, Other (tracheostomy in place) Respiratory: Lungs Clear, Normal Breath Sounds Cardiovascular: Regular Rate, Rhythm, No Murmur Peripheral Pulses: 2+ Radial Pulses (R), 2+ Radial Pulses (L) Gastrointestinal: soft, distended; No tenderness; other (obese) Extremity: Non Tender, No Calf Tenderness Neurologic/Psychiatric: Alert, Oriented x3, Depressed Affect Skin: Normal Color, Warm/Dry Results Lab Laboratory Tests 12/19/22 08:31: White Blood Count 11.5H, Red Blood Count 4.05, Hemoglobin 10.3L, Hematocrit 34L, Mean Corpuscular Volume 84, Mean Corpuscular Hemoglobin 25, Mean Corpuscular Hemoglobin Concent 31L, Red Cell Distribution Width 15.3H, Platelet Count 273, Mean Platelet Volume 10.8, Immature Granulocyte % (Auto) 1, Neutrophils (%) (Auto) 83H, Lymphocytes (%) (Auto) 10L, Monocytes (%) (Auto) 5, Eosinophils (%) (Auto) 0, Basophils (%) (Auto) 0, Neutrophils # (Auto) 9.6H, Lymphocytes # (Aut o) 1.2, Monocytes # (Auto) 0.5, Eosinophils # (Auto) 0.0, Basophils # (Auto) 0.0, Immature Granulocyte # (Auto) 0.1, Sodium Level 140, Potassium Level 3.3L, Chloride Level 105, Carbon Dioxide Level 21, Anion Gap 14, Blood Urea Nitrogen 17, Creatinine 1.45H, Estimat Glomerular Filtration Rate 41, BUN/Creatinine Ratio 12, Glucose Level 91, Calcium Level 8.8, Corrected Calcium 9.8, Total Bilirubin 0.5, Aspartate Amino Transf (AST/SGOT) 25, Alanine Aminotransferase (ALT/SGPT) 28, Alkaline Phosphatase 129, Total Protein 6.8, Albumin 2.8L 12/20/22 05:14: White Blood Count 9.8, Red Blood Count 3.85, Hemoglobin 10.0L, Hematocrit 32L, Mean Corpuscular Volume 83, Mean Corpuscular Hemoglobin 26, Mean Corpuscular Hemoglobin Concent 31L, Red Cell Distribution Width 15.4H, Platelet Count 246, Mean Platelet Volume 10.7, Immature Granulocyte % (Auto) 1, Neutrophils (%) (Auto) 80H, Lymphocytes (%) (Auto) 14, Monocytes (%) (Auto) 4, Eosinophils (%) (Auto) 1, Basophils (%) (Auto) 0, Neutrophils # (Auto) 7.8, Lymphocytes # (Auto) 1.4, Monocytes # (Auto) 0.4, Eosinophils # (Auto) 0.1, Basophils # (Auto) 0.0, Immature Granulocyte # (Auto) 0.1, Sodium Level 139, Potassium Level 3.4L, Chloride Level 105, Carbon Dioxide Level 19L, Anion Gap 15H, Blood Urea Nitrogen 15, Creatinine 1.50H, Estimat Glomerular Filtration Rate 40, BUN/Creatinine Ratio 10, Glucose Level 87, Calcium Level 8.7, Corrected Calcium 9.7, Total Bilirubin 0.6, Aspartate Amino Transf (AST/SGOT) 27, Alanine Aminotransferase (ALT/SGPT) 22, Alkaline Phosphatase 120, Total Protein 6.5, Albumin 2.7L Microbiology 12/07/22 Blood Culture - Final, Complete No growth 12/07/22 Urine Culture - Final, Complete Proteus mirabilis Mixed Bacterial Genie See Comments Assessment/Plan Assessment/Plan Assessment/Plan small bowel Obstruction - secondary to Metastatic Endometrial CA with increase LN in abdomen Morbid Obesity Patient was encouraged to continue ambulate and to continue supplemental O2 and IV fluids. Anti-emetics as needed. Hopefully, chemo will end up allowing for bowel movement. BRENNEN DANIELSON DO 12/20/22 1314: Subjective Time Seen by a Provider: 13:05 Subjective/Events-last exam Pt seen and examined, sitting up at side of bed. Denies flatus or BM Review of Systems General: No Chills, No Night Sweats; Fatigue, Malaise Pulmonary: No Dyspnea, No Cough Cardiovascular: No: Chest Pain, Palpitations Gastrointestinal: No: Nausea, Vomiting, Abdominal Pain Objective Exam General Appearance: No Apparent Distress, Chronically ill, Obese HEENT: PERRL/EOMI, Other (NG tube present in left nare) Neck: Other (tracheostomy in place) Respiratory: Lungs Clear, Normal Breath Sounds Cardiovascular: Regular Rate, Rhythm, No Murmur Gastrointestinal: soft, distended; No tenderness Neurologic/Psychiatric: Alert, Oriented x3, Depressed Affect Assessment/Plan Assessment/Plan Assessment/Plan Complete small bowel Obstruction - secondary to Metastatic Endometrial CA with increase LN in abdomen Morbid Obesity Patient was encouraged to continue ambulate and to continue supplemental O2 and IV fluids. Anti-emetics as needed. Hopefully, chemo will shrink tumor and allow obstruction to release for bowel movement. Supervisory-Addendum Brief Verification & Attestation Participated in pt care: history, MDM, physical Personally performed: exam, history, MDM, supervision of care Care discussed with: Medical Student Procedures: n/a Verification and Attestation of Medical Student E/M Service A medical student performed and documented this service. I then reviewed and verified all information documented by the medical student and made modifications to such information, when appropriate. I personally performed a physical exam, medical decision making and then discussed any differences between the notes and made revisions as necessary to create one note. Brennen Danielson , 12/20/22 , 13:14 HAILEY PUENET December 20, 2022 06:59 BRENNEN DANIELSON DO December 20, 2022 13:14
[2022-12-20] MEDS: DOCUSATE SODIUM 100 MG (COLACE) CAP PO SCH ×2 (08:12→19:44)
[2022-12-20] MEDS: ENOXAPARIN 60 MG/0.6 ML (LOVENOX) SYR SC SCH ×2 (08:12→19:44)
[2022-12-20] MEDS: SENNOSIDES 8.6 MG (SENOKOT) TAB PO SCH ×2 (08:13→19:44)
[2022-12-20] MEDS: RT-ALBUTEROL/IPRATROPIUM 3 ML (DUONEB) VIAL INH SCH ×3 (09:51→20:02)
[2022-12-20] MEDS: ONDANSETRON 4 MG/2 ML (SDV) Z0FRAN IV PRN (17:17)
--- NOTE | 2022-12-21 05:15 | Progress Note - Hospitalist ---
Subjective HPI/CC On Admission Date Seen by Provider: December 21, 2022 Time Seen by Provider: 10:00 CC: SBO and UTI Subjective/Events-last exam NO major changes No BM NGT in place IVF maintained Labs reviewed Review of Systems General: Fatigue, Malaise Objective Exam Vital Signs Vital Signs Date Time Temp Pulse Resp B/P (MAP) Pulse Ox O2 Delivery O2 Flow Rate FiO2 12/21/22 07:44 94 Trach Collar 8.00 30 12/21/22 07:02 36.5 106 18 119/65 (83) Capillary Refill : Less Than 3 Seconds General Appearance: No Apparent Distress, WD/WN, Obese Respiratory: No Accessory Muscle Use, No Respiratory Distress, Decreased Breath Sounds Cardiovascular: Regular Rate, Rhythm Results/Procedures Lab Laboratory Tests 12/21/22 05:30 Patient resulted labs reviewed. Imaging: Reviewed Imaging Report Assessment/Plan Assessment and Plan Assess & Plan/Chief Complaint Assess & Plan/Chief Complaint SBO -not a surgical candidate -Palliative chemotherapy Tuesday UTI -s/p treatment ALEKSANDRA - Cr down to 1.5 - CT demonstrated some hydronephrosis but no nephrolithiasis - probably 2/2 surgical or radiation induced scarring - will likely need op f/u with urology for stent evaluation - not urgent at this time - cont IVF and ctm closely Endometrial cancer with mets - Recent radical hysterectomy - multiple reactive lymph nodes on CT ROBINA Chase DO December 21, 2022 05:15
[2022-12-21] MEDS: 1/2 NS IV SOLUTION 1,000 ML IV SCH (05:24)
[2022-12-21 05:37] LABS: BASOPHILS % (AUTO) 0 % (0-10); EOSINOPHILS # (AUTO) 0.1 10^3/uL (0.0-0.3); EOSINOPHILS % (AUTO) 1 % (0-10); HEMATOCRIT 32 % (35-52); HEMOGLOBIN 9.7 g/dL (11.5-16.0); LYMPHOCYTES # (AUTO) 1.1 10^3/uL (1.0-4.0); LYMPHOCYTES % (AUTO) 10 % (12-44); MEAN CORPUSCULAR HEMOGLOBIN 26 pg (25-34); MEAN CORPUSCULAR HGB CONC 31 g/dL (32-36); MEAN CORPUSCULAR VOLUME 83 fL (80-99); MEAN PLATELET VOLUME 10.6 fL (9.0-12.2); MONOCYTES # (AUTO) 0.5 10^3/uL (0.0-1.0); MONOCYTES % (AUTO) 4 % (0-12); NEUTROPHILS # (AUTO) 9.2 10^3/uL (1.8-7.8); NEUTROPHILS % (AUTO) 84 % (42-75); PLATELET COUNT 263 10^3/uL (130-400); WHITE BLOOD COUNT 10.9 10^3/uL (4.3-11.0)
[2022-12-21 05:56] LABS: ALBUMIN 2.7 GM/DL (3.2-4.5); BILIRUBIN,TOTAL 0.6 MG/DL (0.1-1.0); CALCIUM 8.7 MG/DL (8.5-10.1); CREATININE SERUM 1.5 MG/DL (0.60-1.30); POTASSIUM 3.3 MMOL/L (3.6-5.0); TOTAL PROTEIN 6.4 GM/DL (6.4-8.2)
[2022-12-21 07:02] VITALS: BP 119/65
--- NOTE | 2022-12-21 07:26 | Progress Note - Surgery ---
HAILEY PUENTE 12/21/22 0725: Subjective Date Seen by a Provider: December 21, 2022 Time Seen by a Provider: 07:00 Subjective/Events-last exam Patient reports occasional, crampy abdominal pain. Not currently having abdominal pain. When the pain does it's not in one specific location. Patient states she has not had a BM or passed gas. Patient stats that she has been taking occasional sips of water and has a popsicle. patient states that she was able to tolerate the chemo. Denies Nausea or vomiting. Review of Systems General: No Chills, No Night Sweats HEENT: No Head Aches, No Visual Changes Pulmonary: No Dyspnea, No Cough Cardiovascular: No: Chest Pain, Palpitations Gastrointestinal: No: Nausea, Vomiting, Abdominal Pain Genitourinary: No Dysuria, No Frequency Musculoskeletal: No: neck pain, shoulder pain Neurological: No: Change in speech, Confusion Objective Exam Vital Signs Date Time Temp Pulse Resp B/P (MAP) Pulse Ox O2 Delivery O2 Flow Rate FiO2 12/21/22 07:02 36.5 106 18 119/65 (83) 95 Trach Collar 8.00 12/20/22 23:12 37.2 123 19 120/75 (90) 100 Trach Collar 12/20/22 20:02 Trach Collar 8.00 30 12/20/22 19:45 Trach Collar 8.00 30 12/20/22 19:36 36.6 100 19 114/64 (81) 99 Trach Collar 12/20/22 15:39 36.5 100 18 132/81 (98) 98 Trach Collar 12/20/22 14:44 Trach Collar 8.00 30 12/20/22 12:30 36.8 130 16 121/87 (98) 97 Trach Collar 30.00 8.00 12/20/22 09:52 96 Trach Collar 8.00 30 12/20/22 08:10 36.4 102 16 119/73 (88) 96 Trach Collar 30.00 8.00 12/20/22 08:00 Trach Collar 8.00 30 I & O 12/21/22 07:00 Intake Total 0 ml Output Total 1550 ml Balance -1550 ml Capillary Refill : Less Than 3 Seconds General Appearance: No Apparent Distress, WD/WN, Chronically ill HEENT: PERRL/EOMI, Other (NG tube present in left nare) Neck: Other (tracheostomy in place) Respiratory: Lungs Clear, Normal Breath Sounds Cardiovascular: Regular Rate, Rhythm Peripheral Pulses: 2+ Radial Pulses (R), 2+ Radial Pulses (L) Gastrointestinal: soft, distended; No tenderness Extremity: Non Tender, No Calf Tenderness, No Pedal Edema Neurologic/Psychiatric: Alert, Oriented x3, Depressed Affect Skin: Normal Color, Warm/Dry Results Lab Laboratory Tests 12/21/22 05:30: White Blood Count 10.9, Red Blood Count 3.80, Hemoglobin 9.7L, Hematocrit 32L, Mean Corpuscular Volume 83, Mean Corpuscular Hemoglobin 26, Mean Corpuscular Hemoglobin Concent 31L, Red Cell Distribution Width 15.6H, Platelet Count 263, Mean Platelet Volume 10.6, Immature Granulocyte % (Auto) 1, Neutrophils (%) (Auto) 84H, Lymphocytes (%) (Auto) 10L, Monocytes (%) (Auto) 4, Eosinophils (%) (Auto) 1, Basophils (%) (Auto) 0, Neutrophils # (Auto) 9.2H, Lymphocytes # (Auto) 1.1, Monocytes # (Auto) 0.5, Eosinophils # (Auto) 0.1, Basophils # (Auto) 0.0, Immature Granulocyte # (Auto) 0.1, Sodium Level 138, Potassium Level 3.3L, Chloride Level 105, Carbon Dioxide Level 20L, Anion Gap 13, Blood Urea Nitrogen 15, Creatinine 1.50H, Estimat Glomerular Filtration Rate 40, BUN/Creatinine Ratio 10, Glucose Level 82, Calcium Level 8.7, Corrected Calcium 9.7, Total Bilirubin 0.6, Aspartate Amino Transf (AST/SGOT) 25, Alanine Aminotransferase (ALT/SGPT) 20, Alkaline Phosphatase 118, Total Protein 6.4, Albumin 2.7L Microbiology 12/07/22 Blood Culture - Final, Complete No growth 12/07/22 Urine Culture - Final, Complete Proteus mirabilis Mixed Bacterial Genie See Comments Assessment/Plan Assessment/Plan Assessment/Plan Complete small bowel Obstruction - secondary to Metastatic Endometrial CA with increase LN in abdomen Morbid Obesity Patient to receive anti-emetics as needed and to continue supplemental O2 and IV fluids. Ambulation was encouraged. Hopeful that chemo will allow obstruction to release and allow patient to have bowel movement. BOYD DANIELSON DO 12/21/22 1044: Subjective Time Seen by a Provider: 09:51 Subjective/Events-last exam Pt seen and examined, no new changes. Still no flatus or BM. Denied abdominal pain. Review of Systems Pulmonary: No Dyspnea, No Cough Cardiovascular: No: Chest Pain, Palpitations Gastrointestinal: No: Nausea, Vomiting, Abdominal Pain Objective Exam General Appearance: No Apparent Distress, Chronically ill, Obese HEENT: PERRL/EOMI, Other (NG tube present in left nare) Neck: Other (tracheostomy in place) Respiratory: Lungs Clear, Normal Breath Sounds, No Accessory Muscle Use, No Respiratory Distress Cardiovascular: Regular Rate, Rhythm, No Murmur Gastrointestinal: non tender, soft, distended Extremity: No Calf Tenderness, No Pedal Edema Neurologic/Psychiatric: Alert, Oriented x3, Depressed Affect Assessment/Plan Assessment/Plan Assessment/Plan Complete small bowel Obstruction - secondary to Metastatic Endometrial CA with increase LN in abdomen Morbid Obesity Patient to receive anti-emetics as needed and to continue supplemental O2 and IV fluids. Ambulation was encouraged. Hopeful that chemo will allow obstruction to release and allow patient to have bowel movement. Will increase IV fluids to prevent dehydration, she is not currently getting enough. Supervisory-Addendum Brief Verification & Attestation Participated in pt care: history, MDM, physical Personally performed: exam, history, MDM, supervision of care Care discussed with: Medical Student Procedures: n/a Verification and Attestation of Medical Student E/M Service A medical student performed and documented this service. I then reviewed and verified all information documented by the medical student and made modifications to such information, when appropriate. I personally performed a physical exam, medical decision making and then discussed any differences between the notes and made revisions as necessary to create one note. Boyd Danielson , 12/21/22 , 10:44 HAILEY PUENTE December 21, 2022 07:25 BOYD DANIELSON DO December 21, 2022 10:44
[2022-12-21] MEDS: RT-ALBUTEROL/IPRATROPIUM 3 ML (DUONEB) VIAL INH SCH ×3 (07:43→19:23)
[2022-12-21] MEDS: DOCUSATE SODIUM 100 MG (COLACE) CAP PO SCH ×2 (08:53→19:44)
[2022-12-21] MEDS: SENNOSIDES 8.6 MG (SENOKOT) TAB PO SCH ×2 (08:53→19:44)
[2022-12-21] MEDS: ENOXAPARIN 60 MG/0.6 ML (LOVENOX) SYR SC SCH ×2 (08:53→19:40)
[2022-12-21] MEDS: LACTATED RINGERS 1,000 ML IV SCH ×4 (11:22→22:49)
[2022-12-21 14:09] VITALS: BP 119/65
[2022-12-21 16:23] VITALS: BP 135/89
[2022-12-21] MEDS: HYDROmorphone 2 MG/ML VIAL (DILAUDID) IV PRN (19:40)
[2022-12-21 23:06] VITALS: BP 130/83
[2022-12-22] MEDS: LACTATED RINGERS 1,000 ML IV SCH ×4 (04:30→21:14)
[2022-12-22 04:40] LABS: BASOPHILS % (AUTO) 0 % (0-10); EOSINOPHILS % (AUTO) 0 % (0-10); HEMATOCRIT 30 % (35-52); HEMOGLOBIN 9.4 g/dL (11.5-16.0); LYMPHOCYTES % (AUTO) 10 % (12-44); MEAN CORPUSCULAR HEMOGLOBIN 26 pg (25-34); MEAN CORPUSCULAR HGB CONC 32 g/dL (32-36); MEAN CORPUSCULAR VOLUME 82 fL (80-99); MEAN PLATELET VOLUME 10.4 fL (9.0-12.2); MONOCYTES # (AUTO) 0.4 10^3/uL (0.0-1.0); MONOCYTES % (AUTO) 4 % (0-12); NEUTROPHILS # (AUTO) 8.1 10^3/uL (1.8-7.8); NEUTROPHILS % (AUTO) 84 % (42-75); PLATELET COUNT 255 10^3/uL (130-400); WHITE BLOOD COUNT 9.6 10^3/uL (4.3-11.0)
[2022-12-22 05:00] LABS: ALBUMIN 2.6 GM/DL (3.2-4.5); BILIRUBIN,TOTAL 0.6 MG/DL (0.1-1.0); CALCIUM 8.5 MG/DL (8.5-10.1); CREATININE SERUM 1.42 MG/DL (0.60-1.30); POTASSIUM 3.4 MMOL/L (3.6-5.0); TOTAL PROTEIN 6.2 GM/DL (6.4-8.2)
--- NOTE | 2022-12-22 05:15 | Progress Note - Hospitalist ---
Subjective HPI/CC On Admission Date Seen by Provider: December 22, 2022 Time Seen by Provider: 11:00 CC: SBO and UTI Subjective/Events-last exam TPN will be started PICC line will be placed for TPN since chemo is via port No concerns 6 weeks of chemo is needed Dr Lai is not hopeful this will have long lasting effects Review of Systems General: Fatigue, Malaise Objective Exam Vital Signs Vital Signs Date Time Temp Pulse Resp B/P (MAP) Pulse Ox O2 Delivery O2 Flow Rate FiO2 12/22/22 08:34 97 Trach Collar 8.00 30 12/22/22 07:23 36.1 118 20 132/86 (101) Capillary Refill : Less Than 3 Seconds General Appearance: No Apparent Distress, WD/WN, Chronically ill Respiratory: Lungs Clear, Normal Breath Sounds Cardiovascular: Regular Rate, Rhythm Results/Procedures Lab Laboratory Tests 12/22/22 04:34 Patient resulted labs reviewed. Imaging: Reviewed Imaging Report Assessment/Plan Assessment and Plan Assess & Plan/Chief Complaint Assess & Plan/Chief Complaint SBO -not a surgical candidate -Palliative chemotherapy Fridays -Start TPN UTI -s/p treatment ALEKSANDRA - Cr down to 1.5 - CT demonstrated some hydronephrosis but no nephrolithiasis - probably 2/2 surgical or radiation induced scarring - will likely need op f/u with urology for stent evaluation - not urgent at this time - cont IVF and ctm closely Endometrial cancer with mets - Recent radical hysterectomy - multiple reactive lymph nodes on CT ROBINA Chase DO December 22, 2022 05:14
--- NOTE | 2022-12-22 06:50 | Progress Note - Surgery ---
HAILEY PUENTE 12/22/22 0650: Subjective Date Seen by a Provider: December 22, 2022 Time Seen by a Provider: 06:30 Subjective/Events-last exam Patient reports crampy abdominal pain overnight that comes and goes. Nausea overnight, but no vomiting. No BM or flatus. Patient reports she has been taking small sips of water. Review of Systems General: No Chills, No Night Sweats HEENT: No Head Aches, No Visual Changes Pulmonary: No Dyspnea, No Cough Cardiovascular: No: Chest Pain, Palpitations Gastrointestinal: Nausea, Abdominal Pain (intermittent); No: Vomiting Genitourinary: No Dysuria, No Frequency Musculoskeletal: No: neck pain, shoulder pain Neurological: No: Change in speech, Confusion Objective Exam Vital Signs Date Time Temp Pulse Resp B/P (MAP) Pulse Ox O2 Delivery O2 Flow Rate FiO2 12/21/22 23:06 36.2 114 20 130/83 (99) 98 Trach Collar 8.00 12/21/22 19:45 Trach Collar 8.00 12/21/22 19:23 93 Trach Collar 8.00 30 12/21/22 16:23 36.2 122 18 135/89 (104) 95 Trach Collar 8.00 12/21/22 15:08 93 Trach Collar 8.00 30 12/21/22 14:09 36.5 106 94 12/21/22 10:55 Trach Collar 8.00 30 12/21/22 08:00 94 Trach Collar 8.00 12/21/22 07:44 94 Trach Collar 8.00 30 12/21/22 07:02 36.5 106 18 119/65 (83) 95 Trach Collar 8.00 I & O 12/22/22 07:00 Intake Total 1000 ml Output Total 2050 ml Balance -1050 ml Capillary Refill : Less Than 3 Seconds General Appearance: No Apparent Distress, Chronically ill, Obese HEENT: PERRL/EOMI, Other (NG tube present in left nare) Neck: Other (tracheostomy in place) Respiratory: Lungs Clear, Normal Breath Sounds, No Accessory Muscle Use, No Respiratory Distress Cardiovascular: Regular Rate, Rhythm, No Murmur Peripheral Pulses: 2+ Radial Pulses (R), 2+ Radial Pulses (L) Gastrointestinal: non tender, soft, distended Extremity: No Calf Tenderness, No Pedal Edema Neurologic/Psychiatric: Alert, Oriented x3, Depressed Affect Skin: Normal Color, Warm/Dry Results Lab Laboratory Tests 12/22/22 04:34: White Blood Count 9.6, Red Blood Count 3.61L, Hemoglobin 9.4L, Hematocrit 30L, Mean Corpuscular Volume 82, Mean Corpuscular Hemoglobin 26, Mean Corpuscular Hemoglobin Concent 32, Red Cell Distribution Width 15.5H, Platelet Count 255, Mean Platelet Volume 10.4, Immature Granulocyte % (Auto) 1, Neutrophils (%) (Auto) 84H, Lymphocytes (%) (Auto) 10L, Monocytes (%) (Auto) 4, Eosinophils (%) (Auto) 0, Basophils (%) (Auto) 0, Neutrophils # (Auto) 8.1H, Lymphocytes # (Auto) 1.0, Monocytes # (Auto) 0.4, Eosinophils # (Auto) 0.0, Basophils # (Auto) 0.0, Immature Granulocyte # (Auto) 0.1, Sodium Level 140, Potassium Level 3.4L, Chloride Level 106, Carbon Dioxide Level 21, Anion Gap 13, Blood Urea Nitrogen 14, Creatinine 1.42H, Estimat Glomerular Filtration Rate 42, BUN/Creatinine Ratio 10, Glucose Level 86, Calcium Level 8.5, Corrected Calcium 9.6, Total Bilirubin 0.6, Aspartate Amino Transf (AST/SGOT) 24, Alanine Aminotransferase (ALT/SGPT) 18, Alkaline Phosphatase 112, Total Protein 6.2L, Albumin 2.6L Microbiology 12/07/22 Blood Culture - Final, Complete No growth 12/07/22 Urine Culture - Final, Complete Proteus mirabilis Mixed Bacterial Genie See Comments Assessment/Plan Assessment/Plan Assessment/Plan Complete small bowel Obstruction - secondary to Metastatic Endometrial CA with increase LN in abdomen Morbid Obesity Patient should continue to receive IV fluids to prevent dehydration and continue supplemental O2. Patient was encouraged to ambulate. Anti-emetics PRN. BOYD DANIELSON DO 12/23/22 1217: Subjective Time Seen by a Provider: 15:11 Subjective/Events-last exam Pt seen and examined, no changes. Review of Systems Pulmonary: No Dyspnea, No Cough Cardiovascular: No: Chest Pain, Palpitations Gastrointestinal: Abdominal Pain (intermittent); No: Nausea, Vomiting Objective Exam General Appearance: No Apparent Distress, Chronically ill, Obese HEENT: PERRL/EOMI, Other (NG tube present in left nare) Neck: Other (tracheostomy in place) Respiratory: Lungs Clear, Normal Breath Sounds, No Accessory Muscle Use, No Respiratory Distress Cardiovascular: Regular Rate, Rhythm, No Murmur Gastrointestinal: non tender, soft, distended Neurologic/Psychiatric: Alert, Oriented x3, Depressed Affect Assessment/Plan Assessment/Plan Assessment/Plan Complete small bowel Obstruction - secondary to Metastatic Endometrial CA with increase LN in abdomen Morbid Obesity Patient should continue to receive IV fluids to prevent dehydration and continue supplemental O2. Patient was encouraged to ambulate. Anti-emetics PRN. Pt seen yesterday but note finished today Supervisory-Addendum Brief Verification & Attestation Participated in pt care: history, MDM, physical Personally performed: exam, history, MDM, supervision of care Care discussed with: Medical Student Procedures: n/a Verification and Attestation of Medical Student E/M Service A medical student performed and documented this service. I then reviewed and verified all information documented by the medical student and made modifications to such information, when appropriate. I personally performed a physical exam, medical decision making and then discussed any differences between the notes and made revisions as necessary to create one note. Boyd Danielson , 12/23/22 , 12:16 HAILEY PUENTE December 22, 2022 06:50 BOYD DANIELSON DO December 23, 2022 12:17
[2022-12-22 07:23] VITALS: BP 132/86
[2022-12-22] MEDS: RT-ALBUTEROL/IPRATROPIUM 3 ML (DUONEB) VIAL INH SCH ×3 (08:34→20:50)
[2022-12-22] MEDS: ENOXAPARIN 60 MG/0.6 ML (LOVENOX) SYR SC SCH ×2 (10:14→20:05)
[2022-12-22] MEDS: SENNOSIDES 8.6 MG (SENOKOT) TAB PO SCH ×2 (10:14→19:44)
[2022-12-22] MEDS: DOCUSATE SODIUM 100 MG (COLACE) CAP PO SCH ×2 (10:14→19:44)
[2022-12-22 13:19] LABS: MAGNESIUM 1.8 MG/DL (1.6-2.4)
[2022-12-22] MEDS: HYDROmorphone 2 MG/ML VIAL (DILAUDID) IV PRN (15:56)
[2022-12-22] MEDS: POTASSIUM CL 10MEQ/50ML IVPB 50 ML IV SCH ×4 (15:56→17:42)
[2022-12-22 16:38] VITALS: BP 114/73
[2022-12-22 23:15] VITALS: BP 122/72
[2022-12-23] MEDS: LACTATED RINGERS 1,000 ML IV SCH ×2 (01:55→09:08)
[2022-12-23] MEDS: ONDANSETRON 4 MG/2 ML (SDV) Z0FRAN IV PRN (01:55)
[2022-12-23] MEDS: HYDROmorphone 2 MG/ML VIAL (DILAUDID) IV PRN (01:55)
--- NOTE | 2022-12-23 05:10 | Progress Note - Hospitalist ---
Subjective HPI/CC On Admission Date Seen by Provider: December 23, 2022 Time Seen by Provider: 11:00 CC: SBO and UTI Objective Exam Vital Signs Vital Signs Date Time Temp Pulse Resp B/P (MAP) Pulse Ox O2 Delivery O2 Flow Rate FiO2 12/23/22 08:00 Trach Collar 8.00 30 12/23/22 07:19 36.2 110 20 113/63 (80) 95 Capillary Refill : Less Than 3 Seconds Results/Procedures Lab Laboratory Tests 12/23/22 05:40 Patient resulted labs reviewed. Imaging: Reviewed Imaging Report Assessment/Plan Assessment and Plan Assess & Plan/Chief Complaint Assess & Plan/Chief Complaint SBO -not a surgical candidate -Palliative chemotherapy Fridays -Start TPN UTI -s/p treatment ALEKSANDRA - Cr down to 1.5 - CT demonstrated some hydronephrosis but no nephrolithiasis - probably 2/2 surgical or radiation induced scarring - will likely need op f/u with urology for stent evaluation - not urgent at this time - cont IVF and ctm closely Endometrial cancer with mets - Recent radical hysterectomy - multiple reactive lymph nodes on CT ROBINA Chase DO December 23, 2022 05:10
[2022-12-23 05:49] LABS: BASOPHILS % (AUTO) 1 % (0-10); EOSINOPHILS # (AUTO) 0.1 10^3/uL (0.0-0.3); EOSINOPHILS % (AUTO) 1 % (0-10); HEMATOCRIT 29 % (35-52); HEMOGLOBIN 9.1 g/dL (11.5-16.0); LYMPHOCYTES % (AUTO) 12 % (12-44); MEAN CORPUSCULAR HEMOGLOBIN 26 pg (25-34); MEAN CORPUSCULAR HGB CONC 32 g/dL (32-36); MEAN CORPUSCULAR VOLUME 83 fL (80-99); MEAN PLATELET VOLUME 9.9 fL (9.0-12.2); MONOCYTES # (AUTO) 0.5 10^3/uL (0.0-1.0); MONOCYTES % (AUTO) 6 % (0-12); NEUTROPHILS # (AUTO) 6.7 10^3/uL (1.8-7.8); NEUTROPHILS % (AUTO) 80 % (42-75); PLATELET COUNT 240 10^3/uL (130-400); WHITE BLOOD COUNT 8.4 10^3/uL (4.3-11.0)
[2022-12-23 06:18] LABS: ALBUMIN 2.4 GM/DL (3.2-4.5); BILIRUBIN,TOTAL 0.6 MG/DL (0.1-1.0); CALCIUM 8.7 MG/DL (8.5-10.1); CREATININE SERUM 1.34 MG/DL (0.60-1.30); MAGNESIUM 1.6 MG/DL (1.6-2.4); PHOSPHORUS 2.8 MG/DL (2.3-4.7); POTASSIUM 3.6 MMOL/L (3.6-5.0); TOTAL PROTEIN 5.8 GM/DL (6.4-8.2)
[2022-12-23] MEDS: RT-ALBUTEROL/IPRATROPIUM 3 ML (DUONEB) VIAL INH SCH (06:53)
--- NOTE | 2022-12-23 06:54 | Progress Note - Surgery ---
HAILEY PUENTE 12/23/22 0654: Subjective Date Seen by a Provider: December 23, 2022 Time Seen by a Provider: 06:30 Subjective/Events-last exam Patient reports she has been more nauseated, but has not had emesis. Occasional abdominal pain. No BM or flatus. Review of Systems General: No Chills, No Night Sweats HEENT: No Head Aches, No Visual Changes Pulmonary: No Dyspnea, No Cough Cardiovascular: No: Chest Pain, Palpitations Gastrointestinal: Nausea, Abdominal Pain (come and goes); No: Vomiting Genitourinary: No Dysuria, No Frequency Musculoskeletal: No: neck pain, shoulder pain Neurological: No: Change in speech, Confusion Objective Exam Vital Signs Date Time Temp Pulse Resp B/P (MAP) Pulse Ox O2 Delivery O2 Flow Rate FiO2 12/23/22 02:28 Trach Collar 8.00 30 12/22/22 23:15 36.1 112 18 122/72 (89) 96 Trach Collar 30.00 8.00 12/22/22 20:50 Trach Collar 8.00 30 12/22/22 19:45 Trach Collar 8.00 30 12/22/22 16:38 37.0 117 18 114/73 (87) 94 Trach Collar 8.00 12/22/22 14:22 98 Trach Collar 8.00 30 12/22/22 08:34 97 Trach Collar 8.00 30 12/22/22 08:00 97 Trach Collar 8.00 12/22/22 07:23 36.1 118 20 132/86 (101) 96 Trach Collar 8.00 I & O 12/23/22 07:00 Intake Total 2330 ml Output Total 1850 ml Balance 480 ml Capillary Refill : Less Than 3 Seconds General Appearance: No Apparent Distress, WD/WN, Chronically ill HEENT: PERRL/EOMI, Other (NG tube present in left nare) Neck: Other (tracheostomy in place) Respiratory: Lungs Clear, Normal Breath Sounds Cardiovascular: Regular Rate, Rhythm, No Murmur Peripheral Pulses: 2+ Radial Pulses (R), 2+ Radial Pulses (L) Gastrointestinal: non tender, soft, distended Extremity: No Calf Tenderness, No Pedal Edema Neurologic/Psychiatric: Alert, Oriented x3, Depressed Affect Skin: Normal Color, Warm/Dry Results Lab Laboratory Tests 12/23/22 05:40: White Blood Count 8.4, Red Blood Count 3.49L, Hemoglobin 9.1L, Hematocrit 29L, Mean Corpuscular Volume 83, Mean Corpuscular Hemoglobin 26, Mean Corpuscular Hemoglobin Concent 32, Red Cell Distribution Width 15.8H, Platelet Count 240, Mean Platelet Volume 9.9, Immature Granulocyte % (Auto) 1, Neutrophils (%) (Auto) 80H, Lymphocytes (%) (Auto) 12, Monocytes (%) (Auto) 6, Eosinophils (%) (Auto) 1, Basophils (%) (Auto) 1, Neutrophils # (Auto) 6.7, Lymphocytes # (Auto) 1.0, Monocytes # (Auto) 0.5, Eosinophils # (Auto) 0.1, Basophils # (Auto) 0.0, Immature Granulocyte # (Auto) 0.1, Sodium Level 140, Potassium Level 3.6, Chloride Level 107, Carbon Dioxide Level 22, Anion Gap 11, Blood Urea Nitrogen 13, Creatinine 1.34H, Estimat Glomerular Filtration Rate 45, BUN/Creatinine Ratio 10, Glucose Level 79, Calcium Level 8.7, Corrected Calcium 10.0, Phosphorus Level 2.8, Magnesium Level 1.6, Total Bilirubin 0.6, Aspartate Amino Transf (AST/SGOT) 26, Alanine Aminotransferase (ALT/SGPT) 14, Alkaline Phosphatase 123, Total Protein 5.8L, Albumin 2.4L Microbiology 12/07/22 Blood Culture - Final, Complete No growth 12/07/22 Urine Culture - Final, Complete Proteus mirabilis Mixed Bacterial Genie See Comments Assessment/Plan Assessment/Plan Assessment/Plan Complete small bowel Obstruction - secondary to Metastatic Endometrial CA with increase LN in abdomen Morbid Obesity Patient should continue to receive IV fluids to prevent dehydration and continue supplemental O2. Ambulation was encouraged. Anti-emetics PRN. BOYD DANIELSON DO 12/23/22 1219: Subjective Time Seen by a Provider: 11:47 Subjective/Events-last exam Pt seen and examined, no changes. States she is supposed to start TPN today and get another round of Chemo tomorrow. Review of Systems Pulmonary: No Dyspnea, No Cough Cardiovascular: No: Chest Pain, Palpitations Gastrointestinal: Abdominal Pain (come and goes); No: Nausea, Vomiting Objective Exam General Appearance: No Apparent Distress, Chronically ill, Obese HEENT: PERRL/EOMI, Other (NG tube present in left nare) Neck: Other (tracheostomy in place) Respiratory: Lungs Clear, Normal Breath Sounds, No Accessory Muscle Use, No Respiratory Distress Cardiovascular: Regular Rate, Rhythm, No Murmur Gastrointestinal: non tender, soft, distended Extremity: No Calf Tenderness Neurologic/Psychiatric: Depressed Affect Assessment/Plan Assessment/Plan Assessment/Plan Complete small bowel Obstruction - secondary to Metastatic Endometrial CA with increase LN in abdomen (still waiting for it to hopefully release, in the meantime will be starting TPN) Morbid Obesity Patient should continue to receive IV fluids to prevent dehydration and continue supplemental O2. Ambulation was encouraged. Anti-emetics PRN. Hopefully chemo tomorrow will shrink the tumor enough. Supervisory-Addendum Brief Verification & Attestation Participated in pt care: history, MDM, physical Personally performed: exam, history, MDM, supervision of care Care discussed with: Medical Student Procedures: n/a Verification and Attestation of Medical Student E/M Service A medical student performed and documented this service. I then reviewed and verified all information documented by the medical student and made modifications to such information, when appropriate. I personally performed a physical exam, medical decision making and then discussed any differences between the notes and made revisions as necessary to create one note. Boyd Danielson , 12/23/22 , 12:19 HAILEY PUENTE December 23, 2022 06:54 BOYD DANIELSON DO December 23, 2022 12:19
[2022-12-23 07:19] VITALS: BP 113/63
[2022-12-23] MEDS: DOCUSATE SODIUM 100 MG (COLACE) CAP PO SCH (09:07)
[2022-12-23] MEDS: ENOXAPARIN 60 MG/0.6 ML (LOVENOX) SYR SC SCH (09:07)
[2022-12-23] MEDS: SENNOSIDES 8.6 MG (SENOKOT) TAB PO SCH (09:07)
--- NOTE | 2022-12-23 10:40 | Physician Query Clarification ---
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 Please include clinical findings supporting your diagnosis. Emily Turner, MSN, RN Clinical Office Rental Clerk [phone] [email or web address] PHYSICIAN RESPONSE: Based on the clinical findings in the record, please respond to the query above on this document as an addendum. Physician Response: Physician Response Acute and chronic respiratory failure, with Hypoxia, present on admission If you have questions please contact: C[employer]: Ext: Thank you for your time and cooperation. Clinical Office Rental Clerk/C[employer] This is a permanent part of the medical record EMILY TURNER December 23, 2022 10:40 ROBINA MELLO DO December 23, 2022 11:36
--- NOTE | 2022-12-23 11:02 | Discharge Summary ---
Discharge Summary Hospital Course Was the Problem List Reviewed?: Yes Problems/Dx: (1) Cancer of peritoneum (2) Acute kidney injury Status: Acute (3) Small bowel obstruction Status: Acute (4) Endometrial cancer Status: Acute (5) COPD (chronic obstructive pulmonary disease) Status: Chronic (6) Acute on chronic renal failure Status: Acute (7) Urinary tract infection Status: Resolved Qualifiers: Qualified Codes: N39.0 - Urinary tract infection, site not specified Hospital Course Date of Admission: December 07, 2022 at 22:31 Admission Diagnosis : Family Physician/Provider: Dorcas Aaron MD Date of Discharge: 12/23/22 Discharge Diagnosis: [ ] Hospital Course: Uneventful course after she was admitted for SBO due to endometrial cancer with mets was the source for SBO. General surgery assessed her to not be a surgical candidate and Dr Cornelius CNA PCT agreed so she received chemotherapy once a week and TPN started after IV abx finished for UTI and she was deemed stable for SB. Labs and Pending Lab Test: Laboratory Tests 12/23/22 05:40: White Blood Count 8.4, Red Blood Count 3.49L, Hemoglobin 9.1L, Hematocrit 29L, Mean Corpuscular Volume 83, Mean Corpuscular Hemoglobin 26, Mean Corpuscular Hemoglobin Concent 32, Red Cell Distribution Width 15.8H, Platelet Count 240, Mean Platelet Volume 9.9, Immature Granulocyte % (Auto) 1, Neutrophils (%) (Auto) 80H, Lymphocytes (%) (Auto) 12, Monocytes (%) (Auto) 6, Eosinophils (%) (Auto) 1, Basophils (%) (Auto) 1, Neutrophils # (Auto) 6.7, Lymphocytes # (Auto) 1.0, Monocytes # (Auto) 0.5, Eosinophils # (Auto) 0.1, Basophils # (Auto) 0.0, Immature Granulocyte # (Auto) 0.1, Sodium Level 140, Potassium Level 3.6, Chloride Level 107, Carbon Dioxide Level 22, Anion Gap 11, Blood Urea Nitrogen 13, Creatinine 1.34H, Estimat Glomerular Filtration Rate 45, BUN/Creatinine Ratio 10, Glucose Level 79, Calcium Level 8.7, Corrected Calcium 10.0, Phosphoru s Level 2.8, Magnesium Level 1.6, Total Bilirubin 0.6, Aspartate Amino Transf (AST/SGOT) 26, Alanine Aminotransferase (ALT/SGPT) 14, Alkaline Phosphatase 123, Total Protein 5.8L, Albumin 2.4L, Prealbumin [Pending] Microbiology 12/07/22 Blood Culture - Final, Complete No growth 12/07/22 Urine Culture - Final, Complete Proteus mirabilis Mixed Bacterial Genie See Comments Home Meds Active Reported Ex-Lax (Sennosides) 15 Mg Tablet 15-30 Mg PO BID PRN [Potassium Cl Liquid] 20MEQ/15ML Solution 15 Ml PO DAILY Spiriva (Tiotropium [place]) 18 Mcg Aerp 1 Puff PO DAILY PRN Fig9631 (Polyethylene Glycol 3350) 17 Gram/Dose Powder 17 Gm PO DAILY PRN Furosemide 20 Mg Tablet 20 Mg PO DAILY PRN Cyclobenzaprine HCl 5 Mg Tablet 5 Mg PO TID PRN Ventolin Hfa (Albuterol Sulfate) 90 Mcg Hfa.aer.ad 2 Puff INH Q6H PRN Albuterol Sulfate 2.5 Mg/3 Ml (0.083 %) Vial.neb 1 Vial PO Q6H PRN Rosuvastatin Calcium 40 Mg Tablet 40 Mg PO DAILY Hydrochlorothiazide 25 Mg Tablet 25 Mg PO DAILY Assessment/Pt Instructions SB Discharge Planning: <30 minutes discharge planning Discharge Physical Examination Vital Signs Vital Signs Date Time Temp Pulse Resp B/P (MAP) Pulse Ox O2 Delivery O2 Flow Rate FiO2 12/23/22 08:00 Trach Collar 8.00 30 12/23/22 07:19 36.2 110 20 113/63 (80) 95 General Appearance: No Apparent Distress, WD/WN, Chronically ill, Obese Allergies: Coded Allergies: No Known Drug Allergies (Unverified , 07/16/22) Discharge Summary Date of Admission December 07, 2022 at 22:31 Date of Discharge Discharge Date: December 23, 2022 Admission Diagnosis Discharge Diagnosis Assess & Plan/Chief Complaint SBO -not a surgical candidate -Palliative chemotherapy Fridays -Start TPN UTI -s/p treatment ALEKSANDRA - Cr down to 1.5 - CT demonstrated some hydronephrosis but no nephrolithiasis - probably 2/2 surgical or radiation induced scarring - will likely need op f/u with urology for stent evaluation - not urgent at this time - cont IVF and ctm closely Endometrial cancer with mets - Recent radical hysterectomy - multiple reactive lymph nodes on CT abd ROBINA MELLO DO December 23, 2022 11:02
== END 2022-12-23 11:03 | disposition swing bed (61) | DRG 357 ==
LOC: EDUNIT# 19:23 → ER 19:25 → 4TH 22:31
PROVIDERS: ADMIT Internal Medicine; ATTEND Internal Medicine
PROC: 02HV33Z Insertion of Infusion Device into Superior Vena Cava, Percutaneous Approach (ICD-10-PCS; 2022-12-15)
PROC: 0JPT0WZ Removal of Totally Implantable Vascular Access Device from Trunk Subcutaneous Tissue and Fascia, Open Approach (ICD-10-PCS; 2022-12-15)
PROC: 0JH60WZ Insertion of Totally Implantable Vascular Access Device into Chest Subcutaneous Tissue and Fascia, Open Approach (ICD-10-PCS; principal; 2022-12-15 14:03)
DX: C78.6 Secondary malignant neoplasm of retroperitoneum and peritoneum (principal); K56.690 Other partial intestinal obstruction; T82.514A Breakdown (mechanical) of infusion catheter, initial encounter; N17.9 Acute kidney failure, unspecified; N39.0 Urinary tract infection, site not specified; N13.30 Unspecified hydronephrosis; Z68.42 Body mass index [BMI] 45.0-49.9, adult; E86.0 Dehydration; D86.9 Sarcoidosis, unspecified; Z93.0 Tracheostomy status; K59.00 Constipation, unspecified; J44.9 Chronic obstructive pulmonary disease, unspecified; E78.00 Pure hypercholesterolemia, unspecified; I12.9 Hypertensive chronic kidney disease with stage 1 through stage 4 chronic kidney disease, or unspecified chronic kidney disease; N18.9 Chronic kidney disease, unspecified; K21.9 Gastro-esophageal reflux disease without esophagitis; M19.90 Unspecified osteoarthritis, unspecified site; E66.01 Morbid (severe) obesity due to excess calories; F41.9 Anxiety disorder, unspecified; F32.A Depression, unspecified; E87.70 Fluid overload, unspecified; K42.9 Umbilical hernia without obstruction or gangrene; Z85.42 Personal history of malignant neoplasm of other parts of uterus; Z85.048 Personal history of other malignant neoplasm of rectum, rectosigmoid junction, and anus; Z87.891 Personal history of nicotine dependence; Z79.899 Other long term (current) drug therapy
CPT/HCPCS: 36415; 36598; 71045; 74018; 74019; 74176; 74250; 76000; 80053; 81000; 83605; 83735; 84100; 84134; 84478; 85025; 87040; 87077; 87088; 87186; 94640; 94760; 96361; 96374; 96375; 96376

== ENCOUNTER 2022-12-23 00:40 | Inpatient (IN) | payer MEDICARE, MEDICAID ==
[~2022-12-23] VITALS: Ht 165 cm; Wt 126.3 kg
[~2022-12-23 00:40] MED LIST changes: +POTASSIUM CL PO; +SENN15TA PO
[2022-12-23] MEDS ORDERED: ANTACID SUSP 30 ML UDC (MYLANTA) PO PRN (11:30)
[2022-12-23] MEDS ORDERED: MILK OF MAGNESIA 400 MG/5 ML 30 ML UDC PO PRN (11:30)
[2022-12-23] MEDS ORDERED: diphenhydrAMINE 50 MG/ML INJ (BENADRYL) IVP PRN (11:30)
[2022-12-23] MEDS ORDERED: BISACODYL 10 MG SUPP (DULCOLAX) PR PRN (11:30)
[2022-12-23] MEDS ORDERED: CALCIUM CARBONATE 500 MG (TUMS) TAB.CHEW PO PRN (11:30)
[2022-12-23] MEDS ORDERED: LACTULOSE SYRUP 10GM/15ML (ENULOSE) 30ML UDC PO PRN (11:30)
[2022-12-23] MEDS ORDERED: LORazepam INJ 2 MG/ML (ATIVAN) VIAL IVP PRN (11:30)
[2022-12-23] MEDS ORDERED: polyethylene glycoL POWDER 17 GM (MIRALAX) PACK PO PRN (11:30)
[2022-12-23] MEDS ORDERED: MELATONIN 3 MG TABLET PO PRN (11:30)
[2022-12-23] MEDS ORDERED: ACETAMINOPHEN 500 MG TAB (TYLENOL) PO PRN (11:30)
[2022-12-23] MEDS ORDERED: methylPREDNISolone 125 MG (Solu-MEDROL) VIAL IM PRN (11:30)
[2022-12-23] MEDS ORDERED: ACETAMINOPHEN 325 MG TABLET PO PRN (11:30)
[2022-12-23] MEDS ORDERED: diphenhydrAMINE 25 MG TAB (BENADRYL) PO PRN (11:30)
[2022-12-23] MEDS ORDERED: LACTATED RINGERS 1,000 ML IV SCH (11:30)
[2022-12-23] MEDS: ONDANSETRON 4 MG/2 ML (SDV) Z0FRAN IV PRN ×2 (13:27→20:30)
[2022-12-23] MEDS: HYDROmorphone 2 MG/ML VIAL (DILAUDID) IV PRN ×2 (13:27→20:31)
[2022-12-23] MEDS: RT-ALBUTEROL/IPRATROPIUM 3 ML (DUONEB) VIAL INH SCH ×2 (14:50→22:01)
[2022-12-23] MEDS: LACTATED RINGERS 1,000 ML IV SCH ×2 (14:54→22:34)
[2022-12-23 16:17] VITALS: BP 121/68
[2022-12-23] MEDS ORDERED: POTASSIUM PHOSPHATE IV SCH ×10 (17:00)
[2022-12-23] MEDS ORDERED: [UNRECOGNIZED DRUG - OTHER] IV SCH ×10 (17:00)
[2022-12-23] MEDS ORDERED: SODIUM ACETATE IV SCH ×10 (17:00)
[2022-12-23] MEDS ORDERED: POTASSIUM CHLORIDE IV SCH ×10 (17:00)
[2022-12-23 17:55] VITALS: BP 121/68
[2022-12-23] MEDS: SENNOSIDES 8.6 MG (SENOKOT) TAB PO SCH (20:14)
[2022-12-23] MEDS: DOCUSATE SODIUM 100 MG (COLACE) CAP PO SCH (20:14)
[2022-12-23] MEDS: ENOXAPARIN 60 MG/0.6 ML (LOVENOX) SYR SC SCH (20:15)
[2022-12-24] MEDS: ONDANSETRON 4 MG/2 ML (SDV) Z0FRAN IV PRN (03:33)
[2022-12-24] MEDS: HYDROmorphone 2 MG/ML VIAL (DILAUDID) IV PRN (03:34)
--- NOTE | 2022-12-24 04:52 | Progress Note - Hospitalist ---
Subjective HPI/CC On Admission Date Seen by Provider: December 24, 2022 Time Seen by Provider: 11:00 Subjective/Events-last exam No major issues Chemo today TPN tolerated Review of Systems General: Fatigue, Malaise Objective Exam Vital Signs Vital Signs Date Time Temp Pulse Resp B/P (MAP) Pulse Ox O2 Delivery O2 Flow Rate FiO2 12/24/22 08:42 36.2 111 20 133/85 (101) 99 Room Air 12/24/22 08:20 6.00 28 Capillary Refill : General Appearance: No Apparent Distress, WD/WN, Chronically ill Respiratory: Lungs Clear, Normal Breath Sounds Cardiovascular: Regular Rate, Rhythm Results/Procedures Lab Laboratory Tests 12/24/22 07:29 Patient resulted labs reviewed. Assessment/Plan Assessment and Plan Assess & Plan/Chief Complaint (1) Cancer of peritoneum (2) Acute kidney injury Status: Acute (3) Small bowel obstruction Status: Acute (4) Endometrial cancer Status: Acute (5) COPD (chronic obstructive pulmonary disease) Status: Chronic (6) Acute on chronic renal failure Status: Acute (7) Urinary tract infection Status: Resolved ROBINA MELLO DO December 24, 2022 04:52
[2022-12-24] MEDS: LACTATED RINGERS 1,000 ML IV SCH ×3 (05:39→17:56)
[2022-12-24 07:38] LABS: BASOPHILS % (AUTO) 0 % (0-10); EOSINOPHILS # (AUTO) 0.1 10^3/uL (0.0-0.3); EOSINOPHILS % (AUTO) 1 % (0-10); HEMATOCRIT 29 % (35-52); HEMOGLOBIN 9.2 g/dL (11.5-16.0); LYMPHOCYTES # (AUTO) 1.4 10^3/uL (1.0-4.0); LYMPHOCYTES % (AUTO) 16 % (12-44); MEAN CORPUSCULAR HEMOGLOBIN 26 pg (25-34); MEAN CORPUSCULAR HGB CONC 32 g/dL (32-36); MEAN CORPUSCULAR VOLUME 82 fL (80-99); MEAN PLATELET VOLUME 10.3 fL (9.0-12.2); MONOCYTES # (AUTO) 0.6 10^3/uL (0.0-1.0); MONOCYTES % (AUTO) 7 % (0-12); NEUTROPHILS # (AUTO) 6.7 10^3/uL (1.8-7.8); NEUTROPHILS % (AUTO) 75 % (42-75); PLATELET COUNT 273 10^3/uL (130-400); WHITE BLOOD COUNT 8.9 10^3/uL (4.3-11.0)
[2022-12-24] MEDS ORDERED: PALONOSETRON HCL 0.25 MG, dexAMETHasone INJECTION 10 MG in NS (IVPB) 50 ML IV SCH (08:00)
[2022-12-24] MEDS ORDERED: PACLitaxel PROTEIN 160 MG in EMPTY IV BAG (PVC) CANCER CTR 1 EA IV SCH (08:00)
[2022-12-24] MEDS ORDERED: NS IV SCH (08:00)
[2022-12-24] MEDS ORDERED: CARBOPLATIN IV SCH (08:00)
[2022-12-24 08:03] LABS: ALBUMIN 2.5 GM/DL (3.2-4.5)
[2022-12-24 08:04] LABS: POTASSIUM 3.9 MMOL/L (3.6-5.0)
[2022-12-24 08:05] LABS: CALCIUM 8.8 MG/DL (8.5-10.1)
[2022-12-24 08:08] LABS: BILIRUBIN,TOTAL 0.5 MG/DL (0.1-1.0)
[2022-12-24 08:10] LABS: CREATININE SERUM 1.46 MG/DL (0.60-1.30)
[2022-12-24] MEDS: RT-ALBUTEROL/IPRATROPIUM 3 ML (DUONEB) VIAL INH SCH ×2 (08:20→21:15)
[2022-12-24 08:35] LABS: PHOSPHORUS 3.3 MG/DL (2.3-4.7)
[2022-12-24 08:37] LABS: MAGNESIUM 1.7 MG/DL (1.6-2.4)
[2022-12-24 08:42] VITALS: BP 133/85
[2022-12-24] MEDS: SENNOSIDES 8.6 MG (SENOKOT) TAB PO SCH ×2 (08:42→20:04)
[2022-12-24] MEDS: DOCUSATE SODIUM 100 MG (COLACE) CAP PO SCH ×2 (08:42→20:04)
[2022-12-24] MEDS: ENOXAPARIN 60 MG/0.6 ML (LOVENOX) SYR SC SCH ×2 (08:43→20:10)
--- NOTE | 2022-12-24 09:11 | Progress Note - Surgery ---
Subjective Time Seen by a Provider: 08:51 Subjective/Events-last exam Pt seen and examined, sitting up at bedside. States she has been coughing/vomiting up mucous. Thinks her belly is less distended but still some "tiny pain". No BM or flatus Review of Systems HEENT: No Head Aches, No Visual Changes Pulmonary: No Dyspnea, No Cough Cardiovascular: No: Chest Pain, Palpitations Gastrointestinal: Nausea, Vomiting, Abdominal Pain Objective Exam Vital Signs Date Time Temp Pulse Resp B/P (MAP) Pulse Ox O2 Delivery O2 Flow Rate FiO2 12/24/22 08:42 36.2 111 20 133/85 (101) 99 Room Air 12/24/22 08:20 Trach Collar 6.00 28 12/24/22 02:53 Trach Collar 6.00 28 12/23/22 22:01 Trach Collar 6.00 28 12/23/22 20:20 96 Trach Collar 8.00 30 12/23/22 19:12 Trach Collar 6.00 28 12/23/22 17:55 36.6 116 18 121/68 (85) 96 Trach Collar 8.00 12/23/22 14:54 Trach Collar 6.00 28 I & O 12/24/22 06:59 Intake Total 2000 ml Output Total 1650 ml Balance 350 ml Capillary Refill : General Appearance: Chronically ill, Obese HEENT: PERRL/EOMI, Other (NG tube in place with bilious output) Neck: Other (tracheostomy) Respiratory: Lungs Clear, Normal Breath Sounds, No Accessory Muscle Use, No Respiratory Distress Cardiovascular: No Murmur, Tachycardia Gastrointestinal: soft; No guarding, No rebound Neurologic/Psychiatric: Alert, Oriented x3 Results Lab Laboratory Tests 12/23/22 23:39: Glucometer 98 12/24/22 05:07: Glucometer 103 12/24/22 07:29: White Blood Count 8.9, Red Blood Count 3.53L, Hemoglobin 9.2L, Hematocrit 29L, Mean Corpuscular Volume 82, Mean Corpuscular Hemoglobin 26, Mean Corpuscular Hemoglobin Concent 32, Red Cell Distribution Width 15.9H, Platelet Count 273, Mean Platelet Volume 10.3, Immature Granulocyte % (Auto) 1, Neutrophils (%) (Auto) 75, Lymphocytes (%) (Auto) 16, Monocytes (%) (Auto) 7, Eosinophils (%) (Auto) 1, Basophils (%) (Auto) 0, Neutrophils # (Auto) 6.7, Lymphocytes # (Auto) 1.4, Monocytes # (Auto) 0.6, Eosinophils # (Auto) 0.1, Basophils # (Auto) 0.0, Immature Granulocyte # (Auto) 0.1, Sodium Level 144, Potassium Level 3.9, Chloride Level 109H, Carbon Dioxide Level 24, Anion Gap 11, Blood Urea Nitrogen 14, Creatinine 1.46H, Estimat Glomerular Filtration Rate 41, BUN/Creatinine Ratio 10, Glucose Level 110H, Calcium Level 8.8, Corrected Calcium 10.0, Phosphorus Level 3.3, Magnesium Level 1.7, Total Bilirubin 0.5, Aspartate Amino Transf (AST/SGOT) 33, Alanine Aminotransferase (ALT/SGPT) 20, Alkaline Phosphatase 115, Total Protein 6.0L, Albumin 2.5L Assessment/Plan Assessment/Plan Assessment/Plan Complete Small bowel obstruction - secondary to Metastatic Disease Malnutrition Pt is getting chemo again today, hopefully that will shrink some of the cancer and allow her bowel obstruction to clear. She is getting TPN for nutrition. Continue supportive care, pt is a very poor surgical candidate. I will sign off and can reassess the pt if needed. BRENNEN HERCULES DO December 24, 2022 09:11
[2022-12-24] MEDS ORDERED: NS IV 500 ML 500 ML ONE (09:42)
[2022-12-24 15:12] VITALS: BP 133/85
[2022-12-24] MEDS ORDERED: POTASSIUM PHOSPHATE IV SCH ×9 (17:00)
[2022-12-24] MEDS ORDERED: [UNRECOGNIZED DRUG - OTHER] IV SCH ×9 (17:00)
[2022-12-24] MEDS ORDERED: POTASSIUM ACETATE IV SCH ×9 (17:00)
[2022-12-24 19:38] VITALS: BP 152/104
--- NOTE | 2022-12-24 19:45 | Diagnostic Imaging Report ---
INDICATION: NG tube placement. EXAMINATION: Chest, 12/24/2022. COMPARISON: 12/16/2022. FINDINGS: There is focal atelectasis versus developing infiltrate at the left lung base. Linear atelectasis or scar seen in the right lung base. Heart and pulmonary vasculature stable from previous imaging. Right chest port is stable. Tracheostomy tube unchanged. There has been placement of an enteric tube with the tip in the left upper quadrant, likely in the stomach. IMPRESSION: Enteric tube, as above, with other findings as noted. Worsened appearance of the left lung base could be worsening atelectasis with infiltrate not excluded. Dictated by: Dictated on workstation # [id number]
[2022-12-25] MEDS: LACTATED RINGERS 1,000 ML IV SCH ×3 (01:17→16:17)
[2022-12-25] MEDS: HYDROmorphone 2 MG/ML VIAL (DILAUDID) IV PRN ×3 (01:57→16:21)
[2022-12-25 05:37] LABS: MAGNESIUM 1.8 MG/DL (1.6-2.4); PHOSPHORUS 3.3 MG/DL (2.3-4.7)
[2022-12-25 07:29] VITALS: BP 125/80
[2022-12-25] MEDS: RT-ALBUTEROL/IPRATROPIUM 3 ML (DUONEB) VIAL INH SCH ×2 (07:40→19:02)
[2022-12-25] MEDS: DOCUSATE SODIUM 100 MG (COLACE) CAP PO SCH ×2 (07:50→20:22)
[2022-12-25] MEDS: SENNOSIDES 8.6 MG (SENOKOT) TAB PO SCH ×2 (07:50→20:22)
[2022-12-25] MEDS: ENOXAPARIN 60 MG/0.6 ML (LOVENOX) SYR SC SCH ×2 (07:50→20:22)
[2022-12-25 10:41] LABS: ALBUMIN 2.6 GM/DL (3.2-4.5); POTASSIUM 3.9 MMOL/L (3.6-5.0)
[2022-12-25 10:42] LABS: CALCIUM 8.9 MG/DL (8.5-10.1)
[2022-12-25 10:44] LABS: TOTAL PROTEIN 6.2 GM/DL (6.4-8.2)
[2022-12-25 10:45] LABS: BILIRUBIN,TOTAL 0.4 MG/DL (0.1-1.0)
[2022-12-25 10:47] LABS: CREATININE SERUM 1.47 MG/DL (0.60-1.30)
[2022-12-25 16:08] VITALS: BP 141/93
[2022-12-25] MEDS ORDERED: POTASSIUM ACETATE IV SCH ×9 (17:00)
[2022-12-25] MEDS ORDERED: [UNRECOGNIZED DRUG - OTHER] IV SCH ×9 (17:00)
[2022-12-25] MEDS ORDERED: POTASSIUM PHOSPHATE IV SCH ×9 (17:00)
[2022-12-25 20:00] VITALS: BP 135/82
[2022-12-26] MEDS: HYDROmorphone 2 MG/ML VIAL (DILAUDID) IV PRN ×3 (01:08→17:44)
[2022-12-26] MEDS: ONDANSETRON 4 MG/2 ML (SDV) Z0FRAN IV PRN (01:11)
[2022-12-26] MEDS: LACTATED RINGERS 1,000 ML IV SCH ×2 (03:10→13:16)
[2022-12-26 07:48] VITALS: BP 133/82
[2022-12-26] MEDS: SENNOSIDES 8.6 MG (SENOKOT) TAB PO SCH ×2 (08:23→20:07)
[2022-12-26] MEDS: DOCUSATE SODIUM 100 MG (COLACE) CAP PO SCH ×2 (08:23→20:07)
[2022-12-26] MEDS: RT-ALBUTEROL/IPRATROPIUM 3 ML (DUONEB) VIAL INH SCH ×2 (08:53→21:34)
[2022-12-26] MEDS: ENOXAPARIN 60 MG/0.6 ML (LOVENOX) SYR SC SCH ×2 (09:24→20:07)
[2022-12-26 12:12] LABS: ALBUMIN 2.7 GM/DL (3.2-4.5); POTASSIUM 4.3 MMOL/L (3.6-5.0)
[2022-12-26 12:13] LABS: CALCIUM 8.9 MG/DL (8.5-10.1)
[2022-12-26 12:15] LABS: TOTAL PROTEIN 6.3 GM/DL (6.4-8.2)
[2022-12-26 12:16] LABS: BILIRUBIN,TOTAL 0.3 MG/DL (0.1-1.0)
[2022-12-26 12:18] LABS: CREATININE SERUM 1.55 MG/DL (0.60-1.30); PHOSPHORUS 4.7 MG/DL (2.3-4.7)
[2022-12-26 12:22] LABS: MAGNESIUM 1.9 MG/DL (1.6-2.4)
[2022-12-26] MEDS: 1/2 NS IV SOLUTION 1,000 ML IV SCH ×2 (14:18→23:19)
[2022-12-26] MEDS ORDERED: SODIUM PHOSPHATE IV SCH ×9 (17:00)
[2022-12-26] MEDS ORDERED: POTASSIUM ACETATE IV SCH ×9 (17:00)
[2022-12-26] MEDS ORDERED: [UNRECOGNIZED DRUG - OTHER] IV SCH ×9 (17:00)
[2022-12-26 20:00] VITALS: BP 146/88
[2022-12-27] MEDS: HYDROmorphone 2 MG/ML VIAL (DILAUDID) IV PRN ×3 (02:48→22:54)
[2022-12-27 04:57] LABS: ALBUMIN 2.5 GM/DL (3.2-4.5); POTASSIUM 4.3 MMOL/L (3.6-5.0)
[2022-12-27 04:58] LABS: CALCIUM 8.4 MG/DL (8.5-10.1)
[2022-12-27 04:59] LABS: TOTAL PROTEIN 5.9 GM/DL (6.4-8.2)
[2022-12-27 05:01] LABS: BILIRUBIN,TOTAL 0.4 MG/DL (0.1-1.0)
[2022-12-27 05:03] LABS: CREATININE SERUM 1.61 MG/DL (0.60-1.30); PHOSPHORUS 4.8 MG/DL (2.3-4.7)
[2022-12-27 05:05] LABS: MAGNESIUM 1.9 MG/DL (1.6-2.4)
[2022-12-27] MEDS: RT-ALBUTEROL/IPRATROPIUM 3 ML (DUONEB) VIAL INH SCH ×2 (07:10→22:07)
[2022-12-27 07:48] VITALS: BP 134/78
[2022-12-27] MEDS: SENNOSIDES 8.6 MG (SENOKOT) TAB PO SCH ×2 (08:36→19:33)
[2022-12-27] MEDS: DOCUSATE SODIUM 100 MG (COLACE) CAP PO SCH ×2 (08:36→19:33)
[2022-12-27] MEDS: ENOXAPARIN 60 MG/0.6 ML (LOVENOX) SYR SC SCH ×2 (08:53→19:30)
[2022-12-27] MEDS: 1/2 NS IV SOLUTION 1,000 ML IV SCH ×2 (08:53→18:12)
--- NOTE | 2022-12-27 15:01 | Progress Note ---
Subjective Subjective/Events-last exam Pt seen at 1010. Trach in [address], nods and shakes head to questions. Denies concerns or pain. No BM. Objective Exam Last Set of Vital Signs Vital Signs Date Time Temp Pulse Resp B/P (MAP) Pulse Ox O2 Delivery O2 Flow Rate FiO2 12/27/22 08:00 Trach Collar 6.00 28 12/27/22 07:48 36.6 103 18 134/78 (96) 99 Capillary Refill : I&O Intake and Output 12/27/22 00:00 Output Total 2430 ml Balance -2430 ml Output Urine Total 2430 ml Gastric Drainage Total 0 ml General: Alert, No Acute Distress Lungs: Clear to Auscultation, Normal Air Movement Heart: Regular Rate, No Murmurs Abdomen: Normal Bowel Sounds, Soft Psych/Mental Status: Mood NL Results/Procedures Lab Laboratory Tests 12/27/22 04:38: Sodium Level 144, Potassium Level 4.3, Chloride Level 110H, Carbon Dioxide Level 25, Anion Gap 9, Blood Urea Nitrogen 32H, Creatinine 1.61H, Estimat Glomerular Filtration Rate 36, BUN/Creatinine Ratio 20, Glucose Level 106H, Calcium Level 8.4L, Corrected Calcium 9.6, Phosphorus Level 4.8H, Magnesium Level 1.9, Total Bilirubin 0.4, Aspartate Amino Transf (AST/SGOT) 28, Alanine Aminotransferase (ALT/SGPT) 22, Alkaline Phosphatase 113, Total Protein 5.9L, Albumin 2.5L 12/27/22 11:30: Glucometer 102 Assessment/Plan Assessment/Plan (1) Small bowel obstruction Status: Acute Assessment & Plan: Not a surgical candidate, SBO due to cancer mets, receiving TPN, NG in place and receiving chemo. (2) Endometrial cancer Status: Chronic Assessment & Plan: Treatment per Oncology (3) Cancer of peritoneum Status: Chronic (4) Tracheostomy dependent Status: Chronic (5) HTN (hypertension) Status: Chronic MARCIA ALCANTAR MD December 27, 2022 15:01
[2022-12-27] MEDS: SODIUM PHOSPHATE IV SCH ×9 (18:11)
[2022-12-27] MEDS: POTASSIUM ACETATE IV SCH ×9 (18:11)
[2022-12-27] MEDS: [UNRECOGNIZED DRUG - OTHER] IV SCH ×9 (18:11)
[2022-12-27 19:26] VITALS: BP 121/80
[2022-12-27] MEDS: ONDANSETRON 4 MG/2 ML (SDV) Z0FRAN IV PRN (22:54)
[2022-12-28] MEDS: 1/2 NS IV SOLUTION 1,000 ML IV SCH ×2 (03:59→14:13)
[2022-12-28 07:44] VITALS: BP 131/90
[2022-12-28] MEDS: RT-ALBUTEROL/IPRATROPIUM 3 ML (DUONEB) VIAL INH SCH ×2 (08:08→20:22)
[2022-12-28] MEDS: ENOXAPARIN 60 MG/0.6 ML (LOVENOX) SYR SC SCH ×2 (08:19→20:01)
[2022-12-28] MEDS: DOCUSATE SODIUM 100 MG (COLACE) CAP PO SCH ×2 (08:20→20:01)
[2022-12-28] MEDS: SENNOSIDES 8.6 MG (SENOKOT) TAB PO SCH ×2 (08:20→20:01)
[2022-12-28] MEDS: ONDANSETRON 4 MG/2 ML (SDV) Z0FRAN IV PRN ×2 (09:20→17:52)
[2022-12-28 10:47] LABS: HEMATOCRIT 28 % (35-52); HEMOGLOBIN 8.7 g/dL (11.5-16.0); MEAN CORPUSCULAR HEMOGLOBIN 26 pg (25-34); MEAN CORPUSCULAR HGB CONC 31 g/dL (32-36); MEAN CORPUSCULAR VOLUME 82 fL (80-99); MEAN PLATELET VOLUME 10.6 fL (9.0-12.2); PLATELET COUNT 273 10^3/uL (130-400)
[2022-12-28] MEDS: HYDROmorphone 2 MG/ML VIAL (DILAUDID) IV PRN ×2 (10:50→17:52)
[2022-12-28 10:55] LABS: POTASSIUM 4.5 MMOL/L (3.6-5.0)
[2022-12-28 10:56] LABS: CALCIUM 8.5 MG/DL (8.5-10.1)
[2022-12-28 11:01] LABS: CREATININE SERUM 1.72 MG/DL (0.60-1.30)
--- NOTE | 2022-12-28 15:40 | Progress Note ---
Subjective Subjective/Events-last exam Afebrile, family at bedside. She denies pain. Sitting up in bed with open Bible on stand, on questioning reports Psalm 23 is favorite passage. Has not had a BM. They are wondering when they will know if chemo is helping. Objective Exam Last Set of Vital Signs Vital Signs Date Time Temp Pulse Resp B/P (MAP) Pulse Ox O2 Delivery O2 Flow Rate FiO2 12/28/22 09:24 Trach Collar 6.00 28 12/28/22 08:10 99 12/28/22 07:44 36.8 106 18 131/90 (104) Capillary Refill : I&O Intake and Output 12/28/22 00:00 Output Total 1830 ml Balance -1830 ml Output Urine Total 1830 ml General: Alert, No Acute Distress Psych/Mental Status: Mood NL Results/Procedures Lab Laboratory Tests 12/28/22 10:38: White Blood Count 6.0, Red Blood Count 3.39L, Hemoglobin 8.7L, Hematocrit 28L, Mean Corpuscular Volume 82, Mean Corpuscular Hemoglobin 26, Mean Corpuscular Hemoglobin Concent 31L, Red Cell Distribution Width 16.5H, Platelet Count 273, Mean Platelet Volume 10.6, Sodium Level 143, Potassium Level 4.5, Chloride Level 109H, Carbon Dioxide Level 24, Anion Gap 10, Blood Urea Nitrogen 36H, Creatinine 1.72H, Estimat Glomerular Filtration Rate 34, BUN/Creatinine Ratio 21, Glucose Level 100, Calcium Level 8.5 12/28/22 11:12: Glucometer 110 Assessment/Plan Assessment/Plan (1) Small bowel obstruction Status: Acute Assessment & Plan: Not a surgical candidate, SBO due to cancer mets, receiving TPN, NG in place and receiving chemo. (2) Endometrial cancer Status: Chronic Assessment & Plan: Treatment per Oncology with weekly chemo. Family wondering how long before they will know if effective, discussed that is uncertain, they do recognize that the other option is comfort goals and hospice and I did remind Ayah she can choose that at any point if she wants to. (3) Cancer of peritoneum Status: Chronic (4) Tracheostomy dependent Status: Chronic (5) HTN (hypertension) Status: Chronic MARCIA ALCANTAR MD December 28, 2022 15:40
[2022-12-28] MEDS: POTASSIUM ACETATE IV SCH ×9 (17:15)
[2022-12-28] MEDS: SODIUM PHOSPHATE IV SCH ×9 (17:15)
[2022-12-28] MEDS: [UNRECOGNIZED DRUG - OTHER] IV SCH ×9 (17:15)
[2022-12-28 19:22] VITALS: BP 103/70
[2022-12-29] MEDS: 1/2 NS IV SOLUTION 1,000 ML IV SCH ×4 (00:14→19:50)
[2022-12-29] MEDS: HYDROmorphone 2 MG/ML VIAL (DILAUDID) IV PRN ×4 (01:52→21:50)
[2022-12-29 07:32] VITALS: BP 134/89
[2022-12-29] MEDS: RT-ALBUTEROL/IPRATROPIUM 3 ML (DUONEB) VIAL INH SCH (07:39)
[2022-12-29] MEDS: DOCUSATE SODIUM 100 MG (COLACE) CAP PO SCH ×2 (08:15→19:27)
[2022-12-29] MEDS: ENOXAPARIN 60 MG/0.6 ML (LOVENOX) SYR SC SCH ×2 (08:15→19:28)
[2022-12-29] MEDS: SENNOSIDES 8.6 MG (SENOKOT) TAB PO SCH ×2 (08:16→19:27)
[2022-12-29] MEDS: ONDANSETRON 4 MG/2 ML (SDV) Z0FRAN IV PRN ×2 (08:55→15:00)
--- NOTE | 2022-12-29 11:09 | Physical Therapy Evaluation ---
PT Evaluation-General Medical Diagnosis Admission Date December 23, 2022 at 11:16 Medical Diagnosis: SBO Onset Date: December 22, 2022 Therapy Diagnosis Therapy Diagnosis: Gait deficit, strength deficit Height/Weight Height (Feet): 5 Height (Inches): 5.00 Weight (Pounds): 335 Weight (Ounces): 0.4 Precautions Precautions/Isolations: Chemo Precautions, Fall Prevention, Standard Precautions Weight Bear Status Right Lower Extremity: Right Full Weight Bearing Left Lower Extremity: Left Full Weight Bearing Referral Physician: Dr. Diaz Reason for Referral: Evaluation/Treatment Medical History Pertinent Medical History: COPD, HTN Social History Home: Apartment Current Living Status: Alone Entry Into Home: Level Entry Prior Prior Level of Function SCALE: Activities may be completed with or without assistive devices. 9-Hqgpcwnesm-jqguzum completes the activity by him/herself with no assistance from a helper. 5-Set-up or Clean-up Assistance-helper sets up or cleans up; patient completes activity. [place] assists only prior to or following the activity. 4-Supervision or Touching Assistance-helper provides verbal cues and/or touching/steadying and/or contact guard assistance as patient completes activity. Assistance may be provided throughout the activity or intermittently. 3-Partial/Moderate Assistance-helper does LESS THAN HALF the effort. [place] lifts, holds or supports trunk or limbs, but provides less than half the effort. 2-Substantial/Maximal Assistance-helper does MORE THAN HALF the effort. [place] l ifts or holds trunk or limbs and provides more than half the effort. 1-Aphyxfhhq-qoxgju does ALL the effort. Patient does none of the effort to complete the activity. Or, the assistance of 2 or more helpers is required for the patient to complete the activity. If activity was not attempted, code reason: 7-Patient Refused. 9-Not Applicable-not attempted and the patient did not perform the activity before the current illness, exacerbation or injury. 10-Not Attempted due to Environmental Limitations-(lack of equipment, weather restraints, etc.). 88-Not Attempted due to Medical Conditions or Safety Concerns. Bed Mobility: 6 Transfers (B,C,W/C): 6 Gait: 6 Stairs: 6 Indoor Mobility (Ambulation): Independent Stairs: Independent Prior Devices Use: None Has a FWW and cane at home. PT Evaluation-Current Subjective Patient left sidelying in bed with family in the room upon PT arrival, agreeable to treatment. Patient rates pain at 0/10 currently. Pain Section J - Health Conditions 1. Rarely or not at all 2. Occasionally 3. Frequently 4. Almost constantly 8. Unable to answer Pain Effect on Sleep: 1 Pain Interference with Therapy: 1 Pain Interference w/Day-to-Day: 1 Objective Patient Orientation: Person, Place Attachments: NG Tube, Oxygen, IV trach ROM/Strength ROM Lower Extremities WFLs BLEs all planes Strength Lower Extremities 4-/5 BLEs all planes Sensory Vision: Functional Hearing: Functional Sensation Right Lower Extremit: Intact Sensation Left Lower Extremity: Intact Transfers Roll Left & Right (QC): 3 Sit to Lying (QC): 3 Lying to Sitting/Side of Bed(Q: 3 Sit to Stand (QC): 4 Chair/Pdp-km-Neyku Xfer(QC): 4 Toilet Transfer (QC): 88 Car Transfer (QC): 88 Gait Does the Patient Walk?: Yes Mode of Locomotion: Walk Walk 10 feet (QC): 4 Walk 50 ft with 2 Turns(QC): 4 Walk 150 ft (QC): 88 Walking 10ft/uneven surface-QC: 88 Distance: 120 feet Gait Assistive Device: FWW Wheelchair Training Does the Pt Use a Wheelchair?: No Wheel 50 ft with 2 turns (QC): 9 Wheel 150 ft (QC): 9 Stairs 1 Step (curb) (QC): 88 4 Steps (QC): 88 12 Steps (QC): 88 Balance Sitting Static: Good Sitting Dynamic: Good Standing Static: Fair Standing Dynamic: Fair Picking up an Object (QC): 88 Assessment/Needs Patient tolerated treatment well. Performs all bed mobility with min A. Performs all transfers with SBA. Patient ambulates 120 feet with FWW, with SBA and verbal cues for safety, progression, posture and conservation of energy. Arsenio paredes ambulates with forward trunk posture, with rounded shoulders and tends to keep the FWW too far away from her body at times. Patient in bed post treatment sitting on the edge as she requires a change of gown. Nursing getting supplies. Call light in reach, family in the room and all needs met. Rehab Potential: Fair PT Custodial Goals Custodial Goals PT Custodial Goals Time Frame: Feb 04, 2023 Roll Left to Right (QC): 6 Sit to Lying (QC): 6 Lying-Sitting on Side/Bed(QC): 6 Sit to Stand (QC): 6 Chair/Izh-hh-Lrysl Xfer(QC): 6 Toilet/Commode Transfer (QC): 6 Car Transfer (QC): 6 Does the Patient Walk: Yes Walk 10 feet (QC): 6 Walk 10ft-Uneven Surface(QC): 6 Walk 50ft with 2 Turns (QC): 6 Walk 150 ft (QC): 6 Does the Pt use WC or Scooter?: No Wheel 50 feet with 2 turns (QC: 9 Wheel 150 feet: 9 1 Step (curb) (QC): 9 4 Steps (QC): 9 12 Steps (QC): 9 Picking up an Object (QC): 4 PT Plan Problem List Problem List: Activity Tolerance, Functional Strength, Safety, Balance, Gait, Transfer, Bed Mobility, ROM Treatment/Plan Treatment Plan: Continue Plan of Care Treatment Plan: Bed Mobility, Education, Functional Activity Ambar, Functional Strength, Group Therapy, Gait, Safety, Therapeutic Exercise, Transfers Treatment Duration: Feb 04, 2023 Frequency: 6 times per week Estimated Hrs Per Day: .25 hour per day Patient and/or Family Agrees t: Yes Safety Risks/Education Patient Education: Gait Training, Transfer Techniques Teaching Recipient: Patient Teaching Methods: Demonstration, Discussion Response to Teaching: Verbalize Understanding, Return Demonstration Time Time In: 1022 Time Out: 1050 DATE: December 29, 2022 Total Billed Treatment Time: 28 Total Billed Treatment Visit, [place] OJEDA JOHN A PT December 29, 2022 11:09
--- NOTE | 2022-12-29 11:39 | Occupational Therapy Eval ---
OT Evaluation-General/PLF Medical Diagnosis Admission Date December 23, 2022 at 11:16 Medical Diagnosis: SBO Onset Date: December 22, 2022 Therapy Diagnosis Therapy Diagnosis: weakness, debility, disocmfort Height/Weight Height (Feet): 5 Height (Inches): 5.00 Weight (Pounds): 335 Weight (Ounces): 0.4 Precautions Precautions/Isolations: Chemo Precautions, Fall Prevention, Standard Precautions Referral Physician: Dr. Diaz Referral Reason: Activity Tolerance, Self Care, Evaluation/Treatment Referral Comments SWB was discussed with Dr. Lynne and then f/u with Dr. Lai. After talking with Dr. Lai, it sounds as though the patient will need to have 2 cycles of chemotherapy (6weeks) before we will know how the plan of care should proceed. She will need Swing Bed support for her daily skilled needs for this 6week apblo eframe. Patient is experiencing uncontrolled nausea and vomiting d/t partial vs. full bowel obstruction r/t to her cancer. He indicated that the patient will need intermittent suction for the duration of this trial along with nutritional support of TPN. The hope is for the chemotherapy to shrink the cancer enough to allow her bowels to begin to move and therefore alleviate her nausea and vomiting. We would then be able to d/c her NG tube with suction and she would be able to eat on her own. We also visited about the Chemotherapy regimen Medical History Pertinent Medical History: COPD, HTN Additional Medical History Released from CHEMO precautions, chemo 5 days ago Social History Home: Apartment Current Living Status: Alone (daughter is SKILL worker for her mother) Entry Into Home: Level Entry ADL-Prior Level of Function SCALE: Activities may be completed with or without assistive devices. 2-Jqkctbpwxa-dxmtbwi completes the activity by him/herself with no assistance from a helper. 5-Set-up or Clean-up Assistance-helper sets up or cleans up; patient completes activity. [place] assists only prior to or following the activity. 4-Supervision or Touching Assistance-helper provides verbal cues and/or touching/steadying and/or contact guard assistance as patient completes activity. Assistance may be provided throughout the activity or intermittently. 3-Partial/Moderate Assistance-helper does LESS THAN HALF the effort. [place] lifts, holds or supports trunk or limbs, but provides less than half the effort. 2-Substantial/Maximal Assistance-helper does MORE THAN HALF the effort. [place] lifts or holds trunk or limbs and provides more than half the effort. 6-Tlozucbxw-kqbmfi does ALL the effort. Patient does none of the effort to complete the activity. Or, the assistance of 2 or more helpers is required for the patient to complete the activity. If activity was not attempted, code reason: 7-Patient Refused. 9-Not Applicable-not attempted and the patient did not perform the activity before the current illness, exacerbation or injury. 10-Not Attempted due to Environmental Limitations-(lack of equipment, weather restraints, etc.). 88-Not Attempted due to Medical Conditions or Safety Concerns. Self Care: Needed Some Help Functional Cognition: Needed Some Help DME/Equipment: Bedside Commode Drive Self: No OT Current Status Subjective Patient nods and gives hand gestures to answer questions, detailed question deferred to daughter in room. Mental Status/Objective Patient Orientation: Person, Place, Time, Situation Attachments: IV, NG Tube, PEG Tube Current Upper Extremity ROM BUE ROM WFLS, close joint approximation is limited by excessive soft tissue Upper Extremity Coordination WFLs Upper Extremity Sensation intact Upper Extremity Strength BUEs _4/5 strength, river boat captain 4/5 composite ADL-Treatment Eating (QC): 88 (NPO, GT, PEG) Oral Hygiene (QC): 4 (swabs) Shower/Bathe Self (QC): 88 Upper Body Dressing (QC): 3 Lower Body Dressing (QC): 3 On/Off Footwear (QC): 4 (slippers) Toileting Hygiene (QC): 4 (BSC) Education OT Patient Education: Correct positioning, Modified ADL techniques, Progress toward Goal/Update tx plan, Purpose of tx/functional activities, Reviewed precautions, Rehab process, Safety issues, Transfer techniques, Use of adapted equipment Teaching Recipient: Patient, Family Teaching Methods: Demonstration, Discussion Response to Teaching: Verbalize Understanding BIMS CAM BIMS Expression of Ideas and Wants: Difficulty Understanding Verbal Content: Usually Understands Brief Interview/Mental Status: No (patient is non verbal, uses write board and family provides discussion) Should Staff Asses. Mental St.: No Notes: no concerns w/ mentallity of patient, patient points to answers on board, trach w/o valve, unable to speak Memory/Recall Ability: Current Season, That He/She in Hospitall OT Career Agent Goals Career Agent Goals Eating (QC): 4 (if medically able) Oral Hygiene (QC): 5 Toileting Hygiene (QC): 6 Shower/Bathe Self (QC): 4 Upper Body Dressing (QC): 5 Lower Body Dressing (QC): 5 On/Off Footwear (QC): 6 1=Demonstrate adherence to instructed precautions during ADL tasks. 2=Patient will verbalize/demonstrate understanding of assistive devices/modifications for ADL. 3=Patient will improve strength/tolerance for activity to enable patient to perform ADL's. OT Education/Plan Problem List/Assessment Assessment: Decreased Activ Tolerance, Impaired Self-Care Skills Discharge Recommendations Plan/Recommendations: Continue POC Treatment Plan/Plan of Care Treatment,Training & Education: Yes Patient would benefit from OT for education, treatment and training to promote independence in ADL's, mobility, safety and/or upper extremity function for ADL's. Plan of Care: ADL Retraining, Functional Mobility, Group Exercise/Act as Ind, UE Funct Exercise/Act Treatment Duration: Feb 04, 2023 Frequency: 5 times per week Estimated Hrs Per Day: .25 hour per day Agreement: Yes Rehab Potential: Fair Patient returned to bed by lifting gown and crawling onto knees and rolling into bed Time Start Time: 08:25 Stop Time: 08:40 DATE: December 29, 2022 Total Time Billed (hr/min): 15 Billed Treatment Time EVM 15 min AMBER CHAUDHARY OT December 29, 2022 11:39
[2022-12-29] MEDS: POTASSIUM ACETATE IV SCH ×9 (17:20)
[2022-12-29] MEDS: [UNRECOGNIZED DRUG - OTHER] IV SCH ×9 (17:20)
[2022-12-29] MEDS: SODIUM PHOSPHATE IV SCH ×9 (17:20)
[2022-12-29 19:52] VITALS: BP 114/77
[2022-12-30] MEDS: HYDROmorphone 2 MG/ML VIAL (DILAUDID) IV PRN ×3 (04:35→23:10)
[2022-12-30] MEDS: 1/2 NS IV SOLUTION 1,000 ML IV SCH ×4 (05:50→21:46)
[2022-12-30 07:07] LABS: HEMATOCRIT 29 % (35-52); HEMOGLOBIN 9.1 g/dL (11.5-16.0); MEAN CORPUSCULAR HEMOGLOBIN 26 pg (25-34); MEAN CORPUSCULAR HGB CONC 32 g/dL (32-36); MEAN CORPUSCULAR VOLUME 82 fL (80-99); MEAN PLATELET VOLUME 10.1 fL (9.0-12.2); PLATELET COUNT 271 10^3/uL (130-400); WHITE BLOOD COUNT 4.9 10^3/uL (4.3-11.0)
[2022-12-30 07:17] LABS: ALBUMIN 2.6 GM/DL (3.2-4.5); BILIRUBIN,TOTAL 0.5 MG/DL (0.1-1.0); CALCIUM 8.7 MG/DL (8.5-10.1); CREATININE SERUM 1.93 MG/DL (0.60-1.30); MAGNESIUM 2.1 MG/DL (1.6-2.4); PHOSPHORUS 3.4 MG/DL (2.3-4.7); POTASSIUM 4.9 MMOL/L (3.6-5.0); TOTAL PROTEIN 6.3 GM/DL (6.4-8.2)
[2022-12-30] MEDS: ONDANSETRON 4 MG/2 ML (SDV) Z0FRAN IV PRN ×2 (07:44→11:43)
[2022-12-30 07:49] VITALS: BP 133/85
[2022-12-30] MEDS: RT-ALBUTEROL/IPRATROPIUM 3 ML (DUONEB) VIAL INH SCH ×2 (07:58→22:17)
[2022-12-30] MEDS: ENOXAPARIN 60 MG/0.6 ML (LOVENOX) SYR SC SCH ×2 (09:02→19:57)
[2022-12-30] MEDS: DOCUSATE SODIUM 100 MG (COLACE) CAP PO SCH ×2 (09:33→19:36)
[2022-12-30] MEDS: SENNOSIDES 8.6 MG (SENOKOT) TAB PO SCH ×2 (09:34→19:36)
--- NOTE | 2022-12-30 10:22 | Progress Note ---
Subjective Subjective/Events-last exam Patient states she is okay. She states she isn't concerned whether we think chemo is working because only God will determine what will happen to her. Objective Exam Last Set of Vital Signs Vital Signs Date Time Temp Pulse Resp B/P (MAP) Pulse Ox O2 Delivery O2 Flow Rate FiO2 12/30/22 08:00 Trach Collar 8.00 28 12/30/22 07:59 99 12/30/22 07:49 36.5 92 18 133/85 (101) Capillary Refill : I&O Intake and Output 12/30/22 00:00 Intake Total 1030 ml Output Total 4700 ml Balance -3670 ml Intake Oral 30 ml IV Total 1000 ml Output Urine Total 4700 ml General: Alert, No Acute Distress Lungs: Clear to Auscultation, Normal Air Movement Heart: Regular Rate, No Murmurs Abdomen: Other (NG in place, brown fecal appearing drainage in cannister) Psych/Mental Status: Mood NL Results/Procedures Lab Laboratory Tests 12/29/22 11:27: Glucometer 110 12/30/22 04:26: White Blood Count 4.9, Red Blood Count 3.50L, Hemoglobin 9.1L, Hematocrit 29L, Mean Corpuscular Volume 82, Mean Corpuscular Hemoglobin 26, Mean Corpuscular Hemoglobin Concent 32, Red Cell Distribution Width 16.7H, Platelet Count 271, Mean Platelet Volume 10.1, Sodium Level 143, Potassium Level 4.9, Chloride Level 108H, Carbon Dioxide Level 23, Anion Gap 12, Blood Urea Nitrogen 38H, Creatinine 1.93H, Estimat Glomerular Filtration Rate 29, BUN/Creatinine Ratio 20, Glucose Level 96, Calcium Level 8.7, Corrected Calcium 9.8, Phosphorus Level 3.4, Magnesium Level 2.1, Total Bilirubin 0.5, Aspartate Amino Transf (AST/SGOT) 64H, Alanine Aminotransferase (ALT/SGPT) 38, Alkaline Phosphatase 177H, Total Protein 6.3L, Albumin 2.6L, Triglycerides Level 159H Assessment/Plan Assessment/Plan (1) Small bowel obstruction Status: Acute Assessment & Plan: Not a surgical candidate, SBO due to cancer mets, receiving TPN, NG in place and receiving chemo. (2) Endometrial cancer Status: Chronic Assessment & Plan: Treatment per Oncology with weekly chemo. Family wondering how long before they will know if effective, discussed that is uncertain, they do recognize that the other option is comfort goals and hospice and I did remind Ayah she can choose that at any point if she wants to. (3) Cancer of peritoneum Status: Chronic (4) Tracheostomy dependent Status: Chronic (5) HTN (hypertension) Status: Chronic MARCIA ALCANTAR MD December 30, 2022 10:22
--- NOTE | 2022-12-30 10:25 | Physical Therapy Daily Note ---
PT Daily Note-Current Subjective Patient agrees to therapy. PT/OT cotreat due to patients functional tolerance Pain Section J - Health Conditions 1. Rarely or not at all 2. Occasionally 3. Frequently 4. Almost constantly 8. Unable to answer Pain Effect on Sleep: 1 Pain Interference with Therapy: 1 Pain Interference w/Day-to-Day: 1 Mental Status Patient Orientation: Normal For Age Attachments: Central Line, NG Tube, Oxygen (trach) Transfers SCALE: Activities may be completed with or without assistive devices. 8-Rhnyapoyri-uvfzlem completes the activity by him/herself with no assistance from a helper. 5-Set-up or Clean-up Assistance-helper sets up or cleans up; patient completes activity. [place] assists only prior to or following the activity. 4-Supervision or Touching Assistance-helper provides verbal cues and/or touching/steadying and/or contact guard assistance as patient completes activity. Assistance may be provided throughout the activity or intermittently. 3-Partial/Moderate Assistance-helper does LESS THAN HALF the effort. [place] lif ts, holds or supports trunk or limbs, but provides less than half the effort. 2-Substantial/Maximal Assistance-helper does MORE THAN HALF the effort. [place] lifts or holds trunk or limbs and provides more than half the effort. 8-Lxislhepj-lvgzak does ALL the effort. Patient does none of the effort to complete the activity. Or, the assistance of 2 or more helpers is required for the patient to complete the activity. If activity was not attempted, code reason: 7-Patient Refused. 9-Not Applicable-not attempted and the patient did not perform the activity before the current illness, exacerbation or injury. 10-Not Attempted due to Environmental Limitations-(lack of equipment, weather restraints, etc.). 88-Not Attempted due to Medical Conditions or Safety Concerns. Sit to Stand (QC): 4 Toilet Transfer (QC): 4 Weight Bearing Right Lower Extremity: Right Full Weight Bearing Left Lower Extremity: Left Full Weight Bearing Gait Training Distance: 25' x 2 Walk 10 feet (QC): 4 Gait Assistive Device: FWW slow, steady Assessment Patient requires standing recovery period due to fatigue/weakness. Patient able to toilet independently. Patient remains sitting EOB after session. PT/OT to increase activity as tolerated by patient. PT Nursing Home Goals Nursing Home Goals PT Overlay Operator Goals Time Frame: Feb 04, 2023 Roll Left & Right (QC): 6 Sit to Lying (QC): 6 Lying-Sitting on Side/Bed(QC): 6 Sit to Stand (QC): 6 Chair/Qha-ad-Kglbg Xfer(QC): 6 Toilet Transfer (QC): 6 Car Transfer (QC): 6 Does the Patient Walk: Yes Walk 10 feet (QC): 6 Walk 50ft with 2 Turns (QC): 6 Walk 150 ft (QC): 6 Walking 10ft on Uneven Surface: 6 1 Step (curb) (QC): 9 4 Steps (QC): 9 12 Steps (QC): 9 Picking up an Object (QC): 4 Does the Pt use WC or Scooter?: No Wheel 50 feet with 2 turns (QC: 9 Wheel 150 feet: 9 PT Plan Treatment/Plan Treatment Plan: Continue Plan of Care Treatment Plan: Bed Mobility, Education, Functional Activity Ambar, Functional Strength, Group Therapy, Gait, Safety, Therapeutic Exercise, Transfers Treatment Duration: Feb 04, 2023 Frequency: 6 times per week Estimated Hrs Per Day: .25 hour per day Patient and/or Family Agrees t: Yes Time Time In: 931 Time Out: 946 DATE: December 30, 2022 Total Billed Treatment Time: 15 Total Billed Treatment 1 visit FA 15 min (cotreat with OT) NAZARIO ELIAS PT December 30, 2022 10:25
--- NOTE | 2022-12-30 11:41 | Occupational Ther Daily Note ---
OT Current Status-Daily Note Subjective Sitting EOB agreeable to OT Mental Status/Objective Patient Orientation: Person, Place, Time, Situation Attachments: IV, Oxygen, Telemetry, Other-See Comments (TPN) ADL-Treatment Therapy Code Descriptions/Definitions Functional [place] Measure: 0=Not Assessed/NA 4=Minimal Assistance 1=Total Assistance 5=Supervision or Setup 2=Maximal Assistance 6=Modified [place] 3=Moderate Assistance 7=Complete IndependenceSCALE: Activities may be completed with or without assistive devices. 3-Zcyjcujvcg-zaszwdj completes the activity by him/herself with no assistance from a helper. 5-Set-up or Clean-up Assistance-helper sets up or cleans up; patient completes activity. Goodman assists only prior to or following the activity. 4-Supervision or Touching Assistance-helper provides verbal cues and/or touching/steadying and/or contact guard assistance as patient completes activity. Assistance may be provided throughout the activity or intermittently. 3-Partial/Moderate Assistance-helper does LESS THAN HALF the effort. Goodman lifts, holds or supports trunk or limbs, but provides less than half the effort. 2-Substantial/Maximal Assistance-helper does MORE THAN HALF the effort. Goodman lifts or holds trunk or limbs and provides more than half the effort. 2-Xxcrwnlvw-yplebi does ALL the effort. Patient does none of the effort to complete the activity. Or, the assistance of 2 or more helpers is required for the patient to complete the activity. If activity was not attempted, code reason: 7-Patient Refused. 9-Not Applicable-not attempted and the patient did not perform the activity before the current illness, exacerbation or injury. 10-Not Attempted due to Environmental Limitations-(lack of equipment, weather restraints, etc.). 88-Not Attempted due to Medical Conditions or Safety Concerns. Oral Hygiene (QC): 5 Shower/Bathe Self (QC): 5 (sponge bath) Upper Body Dressing (QC): 5 Lower Body Dressing (QC): 5 On/Off Footwear: 5 Toileting Hygiene (QC): 5 Toilet Transfer (QC): 4 (d/t environmental restrictions) Education OT Patient Education: Correct positioning, Exercise program, Modified ADL techniques, Progress toward Goal/Update tx plan, Purpose of tx/functional activities, Reviewed precautions, Rehab process, Safety issues, Transfer techniques, Use of adapted equipment Teaching Recipient: Patient Teaching Methods: Demonstration Response to Teaching: Reinforcement Needed OT Intermediate Goals Community Health Promoter Goals Eating (QC): 4 (if medically able) Oral Hygiene (QC): 5 Toileting Hygiene (QC): 6 Shower/Bathe Self (QC): 4 Upper Body Dressing (QC): 5 Lower Body Dressing (QC): 5 On/Off Footwear (QC): 6 1=Demonstrate adherence to instructed precautions during ADL tasks. 2=Patient will verbalize/demonstrate understanding of assistive devices/modifications for ADL. 3=Patient will improve strength/tolerance for activity to enable patient to perform ADL's. OT Education/Plan Problem List/Assessment Assessment: Decreased Activ Tolerance, Impaired Self-Care Skills Discharge Recommendations Plan/Recommendations: Continue POC Treatment Plan/Plan of Care Patient would benefit from OT for education, treatment and training to promote independence in ADL's, mobility, safety and/or upper extremity function for ADL's. Plan of Care: ADL Retraining, Functional Mobility, Group Exercise/Act as Ind, UE Funct Exercise/Act Treatment Duration: Feb 04, 2023 Frequency: 5 times per week Estimated Hrs Per Day: .25 hour per day Agreement: Yes Rehab Potential: Fair Time Start Time: 09:31 Stop Time: 09:46 DATE: December 30, 2022 Total Time Billed (hr/min): 15 Billed Treatment Time CO TX d//t excessive AD needed for mobility FA 15 min AMBER CHAUDHARY OT December 30, 2022 11:41
[2022-12-30] MEDS ORDERED: HEMORRHOIDAL SUPP (PREPARATION H) PR PRN (12:30)
[2022-12-30] MEDS ORDERED: PREPARATION H OINTMENT 57 GR TUBE PR PRN (14:00)
[2022-12-30] MEDS: POTASSIUM ACETATE IV SCH ×10 (17:22)
[2022-12-30] MEDS: SODIUM PHOSPHATE IV SCH ×10 (17:22)
[2022-12-30] MEDS: [UNRECOGNIZED DRUG - OTHER] IV SCH ×10 (17:22)
[2022-12-30] MEDS: SODIUM ACETATE IV SCH ×10 (17:22)
[2022-12-30 19:50] VITALS: BP 132/83
[2022-12-31] MEDS: ONDANSETRON 4 MG/2 ML (SDV) Z0FRAN IV PRN ×3 (03:23→20:51)
[2022-12-31] MEDS: HYDROmorphone 2 MG/ML VIAL (DILAUDID) IV PRN ×2 (03:23→12:59)
[2022-12-31] MEDS: 1/2 NS IV SOLUTION 1,000 ML IV SCH ×2 (06:15→14:11)
[2022-12-31] MEDS: RT-ALBUTEROL/IPRATROPIUM 3 ML (DUONEB) VIAL INH SCH ×2 (07:28→21:24)
[2022-12-31] MEDS: SENNOSIDES 8.6 MG (SENOKOT) TAB PO SCH ×2 (08:17→21:21)
[2022-12-31] MEDS: ENOXAPARIN 60 MG/0.6 ML (LOVENOX) SYR SC SCH ×2 (08:17→20:51)
[2022-12-31] MEDS: DOCUSATE SODIUM 100 MG (COLACE) CAP PO SCH ×2 (08:17→21:21)
[2022-12-31 08:44] LABS: HEMATOCRIT 29 % (35-52); HEMOGLOBIN 9.3 g/dL (11.5-16.0); MEAN CORPUSCULAR HEMOGLOBIN 26 pg (25-34); MEAN CORPUSCULAR HGB CONC 32 g/dL (32-36); MEAN CORPUSCULAR VOLUME 82 fL (80-99); MEAN PLATELET VOLUME 10.2 fL (9.0-12.2); PLATELET COUNT 252 10^3/uL (130-400); WHITE BLOOD COUNT 4.7 10^3/uL (4.3-11.0)
[2022-12-31 08:52] VITALS: BP 134/90
[2022-12-31 08:56] LABS: CALCIUM 8.4 MG/DL (8.5-10.1); CREATININE SERUM 1.93 MG/DL (0.60-1.30); POTASSIUM 4.3 MMOL/L (3.6-5.0)
--- NOTE | 2022-12-31 09:46 | Physical Therapy Progress Note ---
Therapy Progress Note Patient declined PT at this time due to being up all night and just wanting to rest. PT may attempt later today or tomorrow. 1 ref NAZARIO ELIAS PT December 31, 2022 09:46
--- NOTE | 2022-12-31 09:58 | Progress Note ---
Subjective Subjective/Events-last exam Pt indicates by hand motions answers to questions. Says "so so" to how she is feeling. No BM. Abdominal pain is "so so". Objective Exam Last Set of Vital Signs Vital Signs Date Time Temp Pulse Resp B/P (MAP) Pulse Ox O2 Delivery O2 Flow Rate FiO2 12/31/22 08:54 Trach Collar 6.00 28 12/31/22 08:52 36.0 99 16 134/90 (105) 99 Capillary Refill : I&O Intake and Output 12/31/22 00:00 Intake Total 1000 ml Output Total 1075 ml Balance -75 ml Intake Oral 0 ml IV Total 1000 ml Output Urine Total 475 ml Gastric Drainage Total 600 ml # Voids 3 General: Alert, No Acute Distress Psych/Mental Status: Mood NL Results/Procedures Lab Laboratory Tests 12/30/22 11:24: Glucometer 113H 12/31/22 08:30: White Blood Count 4.7, Red Blood Count 3.56L, Hemoglobin 9.3L, Hematocrit 29L, Mean Corpuscular Volume 82, Mean Corpuscular Hemoglobin 26, Mean Corpuscular Hemoglobin Concent 32, Red Cell Distribution Width 16.8H, Platelet Count 252, Mean Platelet Volume 10.2, Sodium Level 140, Potassium Level 4.3, Chloride Level 107, Carbon Dioxide Level 24, Anion Gap 9, Blood Urea Nitrogen 37H, Creatinine 1.93H, Estimat Glomerular Filtration Rate 29, BUN/Creatinine Ratio 19, Glucose Level 112H, Calcium Level 8.4L Assessment/Plan Assessment/Plan (1) Small bowel obstruction Status: Acute Assessment & Plan: Not a surgical candidate, SBO due to cancer mets, receiving TPN, NG in place and receiving chemo. (2) Endometrial cancer Status: Chronic Assessment & Plan: Treatment per Oncology with weekly chemo. Family wondering how long before they will know if effective, discussed that is uncertain, they do recognize that the other option is comfort goals and hospice and I did remind Ayah she can choose that at any point if she wants to. 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
--- NOTE | 2022-12-31 10:51 | Physical Therapy Daily Note ---
PT Daily Note-Current Subjective Patient remains very confused with difficulty following simple direction. Patient incontinent urine and BM requiring dependent assist to cleanse and change Pain Section J - Health Conditions 1. Rarely or not at all 2. Occasionally 3. Frequently 4. Almost constantly 8. Unable to answer Pain Effect on Sleep: 1 Pain Interference with Therapy: 1 Pain Interference w/Day-to-Day: 1 Mental Status Patient Orientation: Confused Attachments: Oxygen, IV Transfers SCALE: Activities may be completed with or without assistive devices. 2-Cfuhtzcuvi-qqxqmba completes the activity by him/herself with no assistance from a helper. 5-Set-up or Clean-up Assistance-helper sets up or cleans up; patient completes activity. [place] assists only prior to or following the activity. 4-Supervision or Touching Assistance-helper provides verbal cues and/or touching/steadying and/or contact guard assistance as patient completes activity. Assistance may be provided throughout the activity or intermittently. 3-Partial/Moderate Assistance-helper does LESS THAN HALF the effort. Crow[place] lifts, holds or supports trunk or limbs, but provides less than half the effort. 2-Substantial/Maximal Assistance-helper does MORE THAN HALF the effort. [place] lifts or holds trunk or limbs and provides more than half the effort. 9-Pgtbygrmm-zjdvyg does ALL the effort. Patient does none of the effort to complete the activity. Or, the assistance of 2 or more helpers is required for the patient to complete the activity. If activity was not attempted, code reason: 7-Patient Refused. 9-Not Applicable-not attempted and the patient did not perform the activity before the current illness, exacerbation or injury. 10-Not Attempted due to Environmental Limitations-(lack of equipment, weather restraints, etc.). 88-Not Attempted due to Medical Conditions or Safety Concerns. Lying to Sitting/Side of Bed(Q: 3 Sit to Stand (QC): 3 Chair/Zrn-uv-Zodhl Xfer(QC): 3 Toilet Transfer (QC): 3 Weight Bearing Right Lower Extremity: Right Full Weight Bearing Left Lower Extremity: Left Full Weight Bearing Gait Training Distance: 15' x 2 Walk 10 feet (QC): 3 Gait Assistive Device: FWW mod assist with patient demonstrating ataxia with mobility Assessment Patient in recliner with chair alarm activated and family present. Patient remains very confused and unaware of incontinence of BM and urine. PT to increase activity as tolerated by patient. PT Residential Goals Commercial Portfolio Manager Goals PT Residential Goals Time Frame: Feb 04, 2023 Roll Left & Right (QC): 6 Sit to Lying (QC): 6 Lying-Sitting on Side/Bed(QC): 6 Sit to Stand (QC): 6 Chair/Zmj-to-Kqupj Xfer(QC): 6 Toilet Transfer (QC): 6 Car Transfer (QC): 6 Does the Patient Walk: Yes Walk 10 feet (QC): 6 Walk 50ft with 2 Turns (QC): 6 Walk 150 ft (QC): 6 Walking 10ft on Uneven Surface: 6 1 Step (curb) (QC): 9 4 Steps (QC): 9 12 Steps (QC): 9 Picking up an Object (QC): 4 Does the Pt use WC or Scooter?: No Wheel 50 feet with 2 turns (QC: 9 Wheel 150 feet: 9 PT Plan Treatment/Plan Treatment Plan: Continue Plan of Care Treatment Plan: Bed Mobility, Education, Functional Activity Ambar, Functional Strength, Group Therapy, Gait, Safety, Therapeutic Exercise, Transfers Treatment Duration: Feb 04, 2023 Frequency: 6 times per week Estimated Hrs Per Day: .25 hour per day Patient and/or Family Agrees t: Yes Time Time In: 1020 Time Out: 1035 DATE: December 31, 2022 Total Billed Treatment Time: 15 Total Billed Treatment 1 visit FA 15 min NAZARIO ELIAS PT December 31, 2022 10:51
--- NOTE | 2022-12-31 11:21 | Occ Therapy Progress Note ---
Therapy Progress Note Per RN, patient had decline n medical status and did not rest will overnight, patient and nurse request hold for therapy this date, OT will attempt when appropriate. AMBER CHAUDHARY OT December 31, 2022 11:21
--- NOTE | 2022-12-31 11:27 | Physical Therapy Progress Note ---
Therapy Progress Note Patient wanting to rest. PT will resume tomorrow. RN aware and agrees. NAZARIO ELIAS PT December 31, 2022 11:27
[2022-12-31] MEDS: [UNRECOGNIZED DRUG - OTHER] IV SCH ×10 (18:07)
[2022-12-31] MEDS: POTASSIUM ACETATE IV SCH ×10 (18:07)
[2022-12-31] MEDS: SODIUM PHOSPHATE IV SCH ×10 (18:07)
[2022-12-31] MEDS: SODIUM ACETATE IV SCH ×10 (18:07)
[2022-12-31 20:05] VITALS: BP 141/94
[2023-01-01] MEDS: HYDROmorphone 2 MG/ML VIAL (DILAUDID) IV PRN (00:03)
[2023-01-01] MEDS: 1/2 NS IV SOLUTION 1,000 ML IV SCH ×2 (01:51→07:42)
--- NOTE | 2023-01-01 06:15 | Progress Note - Hospitalist ---
Subjective HPI/CC On Admission Date Seen by Provider: January 01, 2023 Time Seen by Provider: 11:00 Subjective/Events-last exam Small bowel obstruction continues Central line will be placed since PICC line cannot be used TPN was still running in Prognosis poor Review of Systems General: Fatigue, Malaise Objective Exam Vital Signs Vital Signs Date Time Temp Pulse Resp B/P (MAP) Pulse Ox O2 Delivery O2 Flow Rate FiO2 01/01/23 10:34 Trach Collar 6.00 28 01/01/23 07:27 36.8 108 20 136/79 (98) 95 Capillary Refill : General Appearance: No Apparent Distress, WD/WN, Chronically ill Respiratory: Lungs Clear, Normal Breath Sounds Cardiovascular: Regular Rate, Rhythm Neurologic/Psychiatric: Alert, Oriented x3, Depressed Affect Results/Procedures Lab Laboratory Tests 01/01/23 06:00 Patient resulted labs reviewed. Assessment/Plan Assessment and Plan Assess & Plan/Chief Complaint (1) Cancer of peritoneum (2) Acute kidney injury Status: Acute (3) Small bowel obstruction Status: Acute (4) Endometrial cancer Status: Acute (5) COPD (chronic obstructive pulmonary disease) Status: Chronic (6) Acute on chronic renal failure Status: Acute (7) Urinary tract infection Status: Resolved Plan: TPN ROBINA MELLO DO January 01, 2023 06:15
[2023-01-01] MEDS: RT-ALBUTEROL/IPRATROPIUM 3 ML (DUONEB) VIAL INH SCH ×2 (06:28→20:15)
[2023-01-01 06:35] LABS: HEMATOCRIT 27 % (35-52); HEMOGLOBIN 8.6 g/dL (11.5-16.0); MEAN CORPUSCULAR HEMOGLOBIN 26 pg (25-34); MEAN CORPUSCULAR HGB CONC 32 g/dL (32-36); MEAN CORPUSCULAR VOLUME 82 fL (80-99); MEAN PLATELET VOLUME 10.3 fL (9.0-12.2); PLATELET COUNT 233 10^3/uL (130-400); WHITE BLOOD COUNT 5.4 10^3/uL (4.3-11.0)
[2023-01-01 06:52] LABS: CALCIUM 8.2 MG/DL (8.5-10.1); CREATININE SERUM 1.96 MG/DL (0.60-1.30); POTASSIUM 4.3 MMOL/L (3.6-5.0)
[2023-01-01 07:27] VITALS: BP 136/79
[2023-01-01] MEDS: ENOXAPARIN 60 MG/0.6 ML (LOVENOX) SYR SC SCH ×2 (07:41→20:39)
[2023-01-01] MEDS: DOCUSATE SODIUM 100 MG (COLACE) CAP PO SCH ×2 (07:41→20:39)
[2023-01-01] MEDS: SENNOSIDES 8.6 MG (SENOKOT) TAB PO SCH ×2 (07:41→20:39)
--- NOTE | 2023-01-01 09:09 | Physical Therapy Progress Note ---
Therapy Progress Note Patient in bed with mother present. Patient declined PT on this date. RN is aware. Will attempt on Tuesday. 1 ref NAZARIO ELIAS PT January 01, 2023 09:09
--- NOTE | 2023-01-01 14:34 | Progress Note - Surgery ---
Subjective Time Seen by a Provider: 11:55 Subjective/Events-last exam I was asked to see pt regarding central line. She was lying in bed, appeared comfortable and denied pain. I also spoke with all her family members in the room. Still no flatus or BM. Review of Systems HEENT: Other (Permanent Tracheostomy) Pulmonary: Dyspnea; No Cough Cardiovascular: No: Chest Pain, Palpitations Gastrointestinal: Other (NGT in place); No: Nausea, Vomiting Objective Exam Vital Signs Date Time Temp Pulse Resp B/P (MAP) Pulse Ox O2 Delivery O2 Flow Rate FiO2 01/01/23 10:34 Trach Collar 6.00 28 01/01/23 08:00 Trach Collar 8.00 30 01/01/23 07:27 36.8 108 20 136/79 (98) 95 Trach Collar 8.00 01/01/23 06:29 96 Trach Collar 6.00 28 01/01/23 02:48 Trach Collar 8.00 28 12/31/22 21:31 Trach Collar 6.00 28 12/31/22 20:05 36.9 101 18 141/94 (110) 99 Trach Collar 6.00 12/31/22 20:00 Trach Collar 8.00 28 I & O 01/01/23 07:00 Intake Total 0 ml Output Total 5350 ml Balance -5350 ml Capillary Refill : General Appearance: No Apparent Distress, Chronically ill, Obese (super morbidly) HEENT: PERRL/EOMI, Other (NG tube in place with bilious output) Neck: Other (tracheostomy) Respiratory: Lungs Clear, Normal Breath Sounds Cardiovascular: Regular Rate, Rhythm Gastrointestinal: soft Neurologic/Psychiatric: Alert, Oriented x3, Depressed Affect Results Lab Laboratory Tests 01/01/23 06:00: White Blood Count 5.4, Red Blood Count 3.31L, Hemoglobin 8.6L, Hematocrit 27L, Mean Corpuscular Volume 82, Mean Corpuscular Hemoglobin 26, Mean Corpuscular Hemoglobin Concent 32, Red Cell Distribution Width 16.9H, Platelet Count 233, Mean Platelet Volume 10.3, Sodium Level 140, Potassium Level 4.3, Chloride Level 106, Carbon Dioxide Level 24, Anion Gap 10, Blood Urea Nitrogen 37H, Creatinine 1.96H, Estimat Glomerular Filtration Rate 29, BUN/Creatinine Ratio 19, Glucose Level 110H, Calcium Level 8.2L 01/01/23 11:46: Glucometer 112H Assessment/Plan Assessment/Plan Assessment/Plan Complete Small bowel obstruction - secondary to Metastatic Disease Malnutrition -getting TPN Venous Insufficiciency Pt is still getting chemo; unfortunately, it has not seemed to shrink some of the cancer and allow her bowel obstruction to clear. She is getting TPN for nutrition. Continue supportive care, pt is a very poor surgical candidate. I realize she needs some more IV access for all that she is getting, but believe there is more risk putting a central line and would rather we "limp along" and wait for PICC line placement Tuesday. An option would be to get a peripheral or switch to pain patch, etc. I am around all weekend if she needs one urgently. BRENNEN HERCULES DO January 01, 2023 14:34
[2023-01-01] MEDS: ONDANSETRON 4 MG (ZOFRAN) ORAL DISSOLVE TAB PO PRN (14:38)
[2023-01-01] MEDS: [UNRECOGNIZED DRUG - OTHER] IV SCH ×10 (17:02)
[2023-01-01] MEDS: SODIUM ACETATE IV SCH ×10 (17:02)
[2023-01-01] MEDS: SODIUM PHOSPHATE IV SCH ×10 (17:02)
[2023-01-01] MEDS: POTASSIUM ACETATE IV SCH ×10 (17:02)
[2023-01-01 19:29] VITALS: BP 111/57
--- NOTE | 2023-01-02 07:15 | Progress Note - Hospitalist ---
Subjective HPI/CC On Admission Date Seen by Provider: January 02, 2023 Time Seen by Provider: 11:00 Subjective/Events-last exam No major changes No bowels are moving Maintained on TPN [place] port is working PICC line is dysfunctional so we will replace on Tuesday Review of Systems General: Fatigue, Malaise Objective Exam Vital Signs Vital Signs Date Time Temp Pulse Resp B/P (MAP) Pulse Ox O2 Delivery O2 Flow Rate FiO2 01/02/23 14:53 Trach Collar 6.00 28 01/02/23 08:44 36.6 102 93 01/02/23 07:44 20 134/71 (92) Capillary Refill : General Appearance: No Apparent Distress, WD/WN, Chronically ill, Obese Respiratory: Lungs Clear, Normal Breath Sounds Cardiovascular: Regular Rate, Rhythm Neurologic/Psychiatric: Alert, Oriented x3, No Motor/Sensory Deficits, Normal Mood/Affect Results/Procedures Lab Patient resulted labs reviewed. Assessment/Plan Assessment and Plan Assess & Plan/Chief Complaint (1) Cancer of peritoneum (2) Acute kidney injury Status: Acute (3) Small bowel obstruction Status: Acute (4) Endometrial cancer Status: Acute (5) COPD (chronic obstructive pulmonary disease) Status: Chronic (6) Acute on chronic renal failure Status: Acute (7) Urinary tract infection Status: Resolved Plan: TPN ROBINA MELLO DO January 02, 2023 07:15
[2023-01-02] MEDS: RT-ALBUTEROL/IPRATROPIUM 3 ML (DUONEB) VIAL INH SCH (07:19)
[2023-01-02 07:44] VITALS: BP 134/71
[2023-01-02 08:44] VITALS: BP 134/71
[2023-01-02] MEDS: SENNOSIDES 8.6 MG (SENOKOT) TAB PO SCH ×2 (09:01→20:24)
[2023-01-02] MEDS: DOCUSATE SODIUM 100 MG (COLACE) CAP PO SCH ×2 (09:01→20:24)
[2023-01-02] MEDS: 1/2 NS IV SOLUTION 1,000 ML IV SCH ×2 (09:04→13:36)
[2023-01-02] MEDS: ENOXAPARIN 60 MG/0.6 ML (LOVENOX) SYR SC SCH ×2 (09:05→20:24)
[2023-01-02] MEDS: POTASSIUM ACETATE IV SCH ×10 (17:00)
[2023-01-02] MEDS: SODIUM PHOSPHATE IV SCH ×10 (17:00)
[2023-01-02] MEDS: [UNRECOGNIZED DRUG - OTHER] IV SCH ×10 (17:00)
[2023-01-02] MEDS: SODIUM ACETATE IV SCH ×10 (17:00)
[2023-01-02] MEDS: RT-ALBUTEROL SULF 2.5 MG/3 ML PRE-MIX VIAL INH PRN (18:53)
[2023-01-02 19:58] VITALS: BP 115/70
[2023-01-02] MEDS: ONDANSETRON 4 MG (ZOFRAN) ORAL DISSOLVE TAB PO PRN (20:51)
[2023-01-03] MEDS: 1/2 NS IV SOLUTION 1,000 ML IV SCH ×4 (00:35→20:38)
--- NOTE | 2023-01-03 06:00 | Progress Note - Hospitalist ---
Subjective HPI/CC On Admission Date Seen by Provider: January 03, 2023 Time Seen by Provider: 11:00 Subjective/Events-last exam Patient doing the same Walked with therapy Denies any new issues Review of Systems General: Fatigue, Malaise Objective Exam Vital Signs Vital Signs Date Time Temp Pulse Resp B/P (MAP) Pulse Ox O2 Delivery O2 Flow Rate FiO2 01/03/23 08:10 35.8 103 20 147/81 (103) 99 Trach Collar 01/03/23 08:00 6.00 28 Capillary Refill : General Appearance: No Apparent Distress, WD/WN, Chronically ill Respiratory: Lungs Clear, Normal Breath Sounds Neurologic/Psychiatric: Alert, Oriented x3, No Motor/Sensory Deficits, Depres sed Affect Results/Procedures Lab Patient resulted labs reviewed. Assessment/Plan Assessment and Plan Assess & Plan/Chief Complaint (1) Cancer of peritoneum (2) Acute kidney injury Status: Acute (3) Small bowel obstruction Status: Acute (4) Endometrial cancer Status: Acute (5) COPD (chronic obstructive pulmonary disease) Status: Chronic (6) Acute on chronic renal failure Status: Acute (7) Urinary tract infection Status: Resolved Plan: TPN ROBINA MELLO DO January 03, 2023 06:00
[2023-01-03] MEDS: RT-ALBUTEROL/IPRATROPIUM 3 ML (DUONEB) VIAL INH SCH ×2 (07:21→18:43)
[2023-01-03] MEDS: SENNOSIDES 8.6 MG (SENOKOT) TAB PO SCH ×2 (07:49→20:37)
[2023-01-03] MEDS: DOCUSATE SODIUM 100 MG (COLACE) CAP PO SCH ×2 (07:49→20:38)
[2023-01-03] MEDS: ENOXAPARIN 60 MG/0.6 ML (LOVENOX) SYR SC SCH ×2 (08:03→20:37)
[2023-01-03 08:10] VITALS: BP 147/81
--- NOTE | 2023-01-03 10:25 | Occupational Ther Daily Note ---
OT Current Status-Daily Note Subjective No pain reported. Appearance Pt. is sitting on EOB when OT enters room. Mental Status/Objective Patient Orientation: Person, Place, Time, Situation ADL-Treatment Therapy Code Descriptions/Definitions Functional [place] Measure: 0=Not Assessed/NA 4=Minimal Assistance 1=Total Assistance 5=Supervision or Setup 2=Maximal Assistance 6=Modified [place] 3=Moderate Assistance 7=Complete IndependenceSCALE: Activities may be completed with or without assistive devices. 3-Jtbtarypsk-ikxkjog completes the activity by him/herself with no assistance from a helper. 5-Set-up or Clean-up Assistance-helper sets up or cleans up; patient completes activity. [place] assists only prior to or following the activity. 4-Supervision or Touching Assistance-helper provides verbal cues and/or touching/steadying and/or contact guard assistance as patient completes activity. Assistance may be provided throughout the activity or intermittently. 3-Partial/Moderate Assistance-helper does LESS THAN HALF the effort. [place] lifts, holds or supports trunk or limbs, but provides less than half the effort. 2-Substantial/Maximal Assistance-helper does MORE THAN HALF the effort. [place] lifts or holds trunk or limbs and provides more than half the effort. 9-Wkxczcfpe-lextmk does ALL the effort. Patient does none of the effort to complete the activity. Or, the assistance of 2 or more helpers is required for the patient to complete the activity. If activity was not attempted, code reason: 7-Patient Refused. 9-Not Applicable-not attempted and the patient did not perform the activity before the current illness, exacerbation or injury. 10-Not Attempted due to Environmental Limitations-(lack of equipment, weather restraints, etc.). 88-Not Attempted due to Medical Conditions or Safety Concerns. Other Treatment Pt. is sitting EOB. Due to trach she does not verbalize very much. She is able to communicate with nodding and pointing. OT introduces self. OT offers to assist pt. to BSC if needed. She indicates that she is doing this on her own. OT offers to assist her with self care/bath. Pt. places a finger over her stoma to state that she had a good shower yesterday. OT asks if pt. needs more ice. She does. OT also asks if pt. would like some things for UE exercises. Pt. is able to speak, "that would be nice." OT brings pt. ice, oranger theraband, and blue therapy sponge. Pt. is educated on and completes bilateral hand squeezes x 10. She is also educated on and return demonstrates orange theraband exercises for bicep curls, elbow extension, and shoulder retraction. Equipment left with pt. to complete exercises throughout the day on her own. Pt. verbalizes understanding. All needs met. Education OT Patient Education: Correct positioning, Exercise program, Progress toward Goal/Update tx plan, Purpose of tx/functional activities, Reviewed precautions, Rehab process, Transfer techniques Teaching Recipient: Patient Teaching Methods: Demonstration, Discussion Response to Teaching: Verbalize Understanding, Return Demonstration OT Layer Off Goals Layer Off Goals Eating (QC): 4 (if medically able) Oral Hygiene (QC): 5 Toileting Hygiene (QC): 6 Shower/Bathe Self (QC): 4 Upper Body Dressing (QC): 5 Lower Body Dressing (QC): 5 On/Off Footwear (QC): 6 1=Demonstrate adherence to instructed precautions during ADL tasks. 2=Patient will verbalize/demonstrate understanding of assistive device s/modifications for ADL. 3=Patient will improve strength/tolerance for activity to enable patient to perform ADL's. OT Education/Plan Problem List/Assessment Assessment: Decreased Activ Tolerance Discharge Recommendations Plan/Recommendations: Continue POC Therapy Discharge Recommendati: Post Acute OT Treatment Plan/Plan of Care Treatment,Training & Education: Yes Patient would benefit from OT for education, treatment and training to promote independence in ADL's, mobility, safety and/or upper extremity function for ADL's. Plan of Care: ADL Retraining, Functional Mobility, Group Exercise/Act as Ind, UE Funct Exercise/Act Treatment Duration: Feb 04, 2023 Frequency: 5 times per week Estimated Hrs Per Day: .25 hour per day Agreement: Yes Rehab Potential: Fair Time Start Time: 08:55 Stop Time: 09:10 DATE: January 03, 2023 Total Time Billed (hr/min): 15 Billed Treatment Time 1, Ex x 15minutes THERESE WALL OT January 03, 2023 10:25
--- NOTE | 2023-01-03 15:42 | Physical Therapy Daily Note ---
PT Daily Note-Current Subjective Patient lying on left side in bed upon PT arrival, agreeable to treatment. Patient rates pain at 0/10 currently. Pain Section J - Health Conditions 1. Rarely or not at all 2. Occasionally 3. Frequently 4. Almost constantly 8. Unable to answer Pain Effect on Sleep: 1 Pain Interference with Therapy: 1 Pain Interference w/Day-to-Day: 1 Mental Status Patient Orientation: Person, Place, Time, Situation Transfers SCALE: Activities may be completed with or without assistive devices. 4-Ahiwrsghjj-envyvie completes the activity by him/herself with no assistance from a helper. 5-Set-up or Clean-up Assistance-helper sets up or cleans up; patient completes activity. [place] assists only prior to or following the activity. 4-Supervision or Touching Assistance-helper provides verbal cues and/or touc gary/steadying and/or contact guard assistance as patient completes activity. Assistance may be provided throughout the activity or intermittently. 3-Partial/Moderate Assistance-helper does LESS THAN HALF the effort. [place] lifts, holds or supports trunk or limbs, but provides less than half the effort. 2-Substantial/Maximal Assistance-helper does MORE THAN HALF the effort. [place] lifts or holds trunk or limbs and provides more than half the effort. 1-Hddpexpoi-kilusu does ALL the effort. Patient does none of the effort to complete the activity. Or, the assistance of 2 or more helpers is required for the patient to complete the activity. If activity was not attempted, code reason: 7-Patient Refused. 9-Not Applicable-not attempted and the patient did not perform the activity before the current illness, exacerbation or injury. 10-Not Attempted due to Environmental Limitations-(lack of equipment, weather restraints, etc.). 88-Not Attempted due to Medical Conditions or Safety Concerns. Roll Left & Right (QC): 4 Sit to Lying (QC): 4 Lying to Sitting/Side of Bed(Q: 4 Sit to Stand (QC): 4 Chair/Rue-nk-Lpqpi Xfer(QC): 4 Weight Bearing Right Lower Extremity: Right Full Weight Bearing Left Lower Extremity: Left Full Weight Bearing Gait Training Does the Patient Walk?: Yes Distance: 300' Walk 10 feet (QC): 4 Walk 50 ft with 2 Turns(QC): 4 Walk 150 ft (QC): 4 Gait Persons Needed: 1 Gait Assistive Device: FWW Assessment Current Status: Fair Progress Patient tolerated treatment well. Performs all bed mobility and all transfers w ith SBA. Patient ambulates 300 feet with FWW, with SBA and verbal cues for safety, progression, posture and conservation of energy. Patient ambulates with forward trunk posture, with rounded shoulders and tends to keep the FWW too far away from her body at times. Patient in bed post treatment sitting on the edge per her request. Call light in reach, nursing notified and all needs met. PT Centerless Grinder Tender Goals Centerless Grinder Tender Goals PT Centerless Grinder Tender Goals Time Frame: Feb 04, 2023 Roll Left & Right (QC): 6 Sit to Lying (QC): 6 Lying-Sitting on Side/Bed(QC): 6 Sit to Stand (QC): 6 Chair/Sub-is-Pjbzm Xfer(QC): 6 Toilet Transfer (QC): 6 Car Transfer (QC): 6 Does the Patient Walk: Yes Walk 10 feet (QC): 6 Walk 50ft with 2 Turns (QC): 6 Walk 150 ft (QC): 6 Walking 10ft on Uneven Surface: 6 1 Step (curb) (QC): 9 4 Steps (QC): 9 12 Steps (QC): 9 Picking up an Object (QC): 4 Does the Pt use WC or Scooter?: No Wheel 50 feet with 2 turns (QC: 9 Wheel 150 feet: 9 PT Plan Treatment/Plan Treatment Plan: Continue Plan of Care Treatment Plan: Bed Mobility, Education, Functional Activity Ambar, Functional Strength, Group Therapy, Gait, Safety, Therapeutic Exercise, Transfers Treatment Duration: Feb 04, 2023 Frequency: 6 times per week Estimated Hrs Per Day: .25 hour per day Patient and/or Family Agrees t: Yes Safety Risks/Education Patient Education: Gait Training, Transfer Techniques Teaching Recipient: Patient Teaching Methods: Demonstration, Discussion Response to Teaching: Verbalize Understanding, Return Demonstration Time Time In: 1035 Time Out: 1055 DATE: January 03, 2023 Total Billed Treatment Time: 20 Total Billed Treatment Visit, MIRELLA GOMEZ PT January 03, 2023 15:42
[2023-01-03] MEDS: [UNRECOGNIZED DRUG - OTHER] IV SCH ×10 (16:59)
[2023-01-03] MEDS: SODIUM ACETATE IV SCH ×10 (16:59)
[2023-01-03] MEDS: POTASSIUM ACETATE IV SCH ×10 (16:59)
[2023-01-03] MEDS: SODIUM PHOSPHATE IV SCH ×10 (16:59)
[2023-01-03 19:46] VITALS: BP 146/65
[2023-01-04 05:57] LABS: BASOPHILS % (AUTO) 0 % (0-10); EOSINOPHILS # (AUTO) 0.1 10^3/uL (0.0-0.3); EOSINOPHILS % (AUTO) 1 % (0-10); HEMATOCRIT 29 % (35-52); HEMOGLOBIN 8.9 g/dL (11.5-16.0); LYMPHOCYTES # (AUTO) 2.5 10^3/uL (1.0-4.0); LYMPHOCYTES % (AUTO) 28 % (12-44); MEAN CORPUSCULAR HEMOGLOBIN 26 pg (25-34); MEAN CORPUSCULAR HGB CONC 31 g/dL (32-36); MEAN CORPUSCULAR VOLUME 82 fL (80-99); MEAN PLATELET VOLUME 10.1 fL (9.0-12.2); MONOCYTES # (AUTO) 1.2 10^3/uL (0.0-1.0); MONOCYTES % (AUTO) 13 % (0-12); NEUTROPHILS % (AUTO) 55 % (42-75); PLATELET COUNT 247 10^3/uL (130-400)
[2023-01-04 06:11] LABS: ALBUMIN 2.5 GM/DL (3.2-4.5); POTASSIUM 3.8 MMOL/L (3.6-5.0)
--- NOTE | 2023-01-04 06:11 | Progress Note - Hospitalist ---
Subjective HPI/CC On Admission Date Seen by Provider: January 04, 2023 Time Seen by Provider: 09:00 Subjective/Events-last exam Patient doing about the same Asking to have something to eat Obstruction is still present Review of Systems General: Fatigue, Malaise Objective Exam Vital Signs Vital Signs Date Time Temp Pulse Resp B/P (MAP) Pulse Ox O2 Delivery O2 Flow Rate FiO2 01/04/23 20:14 36.4 99 18 126/60 (82) 98 Trach Collar 10.00 01/04/23 19:46 40 Capillary Refill : General Appearance: No Apparent Distress, WD/WN, Chronically ill Respiratory: Lungs Clear, Normal Breath Sounds Cardiovascular: Regular Rate, Rhythm Neurologic/Psychiatric: Alert, Oriented x3, Depressed Affect Results/Procedures Lab Laboratory Tests 01/04/23 05:50 Patient resulted labs reviewed. Assessment/Plan Assessment and Plan Assess & Plan/Chief Complaint (1) Cancer of peritoneum (2) Acute kidney injury Status: Acute (3) Small bowel obstruction Status: Acute (4) Endometrial cancer Status: Acute (5) COPD (chronic obstructive pulmonary disease) Status: Chronic (6) Acute on chronic renal failure Status: Acute (7) Urinary tract infection Status: Resolved Plan: TPN ROBINA MELLO DO January 04, 2023 06:11
[2023-01-04 06:12] LABS: CALCIUM 8.7 MG/DL (8.5-10.1)
[2023-01-04 06:14] LABS: TOTAL PROTEIN 6.5 GM/DL (6.4-8.2)
[2023-01-04 06:15] LABS: BILIRUBIN,TOTAL 0.5 MG/DL (0.1-1.0)
[2023-01-04 06:16] LABS: SMEAR SCAN COMMENT YES
[2023-01-04 06:17] LABS: CREATININE SERUM 1.77 MG/DL (0.60-1.30)
[2023-01-04] MEDS: 1/2 NS IV SOLUTION 1,000 ML IV SCH ×3 (07:35→22:52)
[2023-01-04 07:37] VITALS: BP 136/93
[2023-01-04 07:58] LABS: PHOSPHORUS 4.5 MG/DL (2.3-4.7)
[2023-01-04 08:01] LABS: MAGNESIUM 2.3 MG/DL (1.6-2.4)
[2023-01-04 08:33] VITALS: BP 138/92
[2023-01-04] MEDS: DOCUSATE SODIUM 100 MG (COLACE) CAP PO SCH ×2 (08:57→20:04)
[2023-01-04] MEDS: SENNOSIDES 8.6 MG (SENOKOT) TAB PO SCH ×2 (08:57→20:04)
[2023-01-04] MEDS: RT-ALBUTEROL/IPRATROPIUM 3 ML (DUONEB) VIAL INH SCH ×2 (09:05→19:46)
[2023-01-04] MEDS: ENOXAPARIN 60 MG/0.6 ML (LOVENOX) SYR SC SCH ×2 (09:33→20:03)
--- NOTE | 2023-01-04 11:41 | Physical Therapy Daily Note ---
PT Daily Note-Current Subjective Patient agrees to PT/OT cotreat. Pain Section J - Health Conditions 1. Rarely or not at all 2. Occasionally 3. Frequently 4. Almost constantly 8. Unable to answer Pain Effect on Sleep: 1 Pain Interference with Therapy: 1 Pain Interference w/Day-to-Day: 1 Mental Status Patient Orientation: Normal For Age Attachments: Central Line, NG Tube, Oxygen Transfers SCALE: Activities may be completed with or without assistive devices. 3-Kyynpvcbda-qbkebdu completes the activity by him/herself with no assistance from a helper. 5-Set-up or Clean-up Assistance-helper sets up or cleans up; patient completes activity. [place] assists only prior to or following the activity. 4-Supervision or Touching Assistance-helper provides verbal cues and/or touching/steadying and/or contact guard assistance as patient completes activity. Assistance may be provided throughout the activity or intermittently. 3-Partial/Moderate Assistance-helper does LESS THAN HALF the effort. [place] lifts, holds or supports trunk or limbs, but provides less than half the effort. 2-Substantial/Maximal Assistance-helper does MORE THAN HALF the effort. [place] lifts or holds trunk or limbs and provides more than half the effort. 5-Hjimyrdvn-jouyeb does ALL the effort. Patient does none of the effort to complete the activity. Or, the assistance of 2 or more helpers is required for the patient to complete the activity. If activity was not attempted, code reason: 7-Patient Refused. 9-Not Applicable-not attempted and the patient did not perform the activity be fore the current illness, exacerbation or injury. 10-Not Attempted due to Environmental Limitations-(lack of equipment, weather restraints, etc.). 88-Not Attempted due to Medical Conditions or Safety Concerns. Sit to Stand (QC): 4 Weight Bearing Right Lower Extremity: Right Full Weight Bearing Left Lower Extremity: Left Full Weight Bearing Gait Training Distance: 200' Walk 10 feet (QC): 4 Walk 50 ft with 2 Turns(QC): 4 Walk 150 ft (QC): 4 Gait Assistive Device: FWW safe and functional/slight extended UE's with FWW use Assessment NG tube began to leak during session. Ambulated back to room to change clothing. PT/OT cotreat due to patient's decreased functional endurance. PT Automation Architect Goals Halfway Goals PT Automation Architect Goals Time Frame: Feb 04, 2023 Roll Left & Right (QC): 6 Sit to Lying (QC): 6 Lying-Sitting on Side/Bed(QC): 6 Sit to Stand (QC): 6 Chair/Lat-dx-Hkcns Xfer(QC): 6 Toilet Transfer (QC): 6 Car Transfer (QC): 6 Does the Patient Walk: Yes Walk 10 feet (QC): 6 Walk 50ft with 2 Turns (QC): 6 Walk 150 ft (QC): 6 Walking 10ft on Uneven Surface: 6 1 Step (curb) (QC): 9 4 Steps (QC): 9 12 Steps (QC): 9 Picking up an Object (QC): 4 Does the Pt use WC or Scooter?: No Wheel 50 feet with 2 turns (QC: 9 Wheel 150 feet: 9 PT Plan Treatment/Plan Treatment Plan: Continue Plan of Care Treatment Plan: Bed Mobility, Education, Functional Activity Ambar, Functional Strength, Group Therapy, Gait, Safety, Therapeutic Exercise, Transfers Treatment Duration: Feb 04, 2023 Frequency: 6 times per week Estimated Hrs Per Day: .25 hour per day Patient and/or Family Agrees t: Yes Time Time In: 1110 Time Out: 1125 DATE: January 04, 2023 Total Billed Treatment Time: 15 Total Billed Treatment 1 visit FA 15 min NAZARIO ELIAS PT January 04, 2023 11:41
--- NOTE | 2023-01-04 11:48 | Occupational Ther Daily Note ---
OT Current Status-Daily Note Subjective Sitting upright unsupported EOB on hold with a director customer.Agreeable to OT Mental Status/Objective Patient Orientation: Person, Situation Attachments: Central Line ADL-Treatment Change gown d/t leak on NG tube. Therapy Code Descriptions/Definitions Functional [place] Measure: 0=Not Assessed/NA 4=Minimal Assistance 1=Total Assistance 5=Supervision or Setup 2=Maximal Assistance 6=Modified [place] 3=Moderate Assistance 7=Complete IndependenceSCALE: Activities may be completed with or without assistive devices. 1-Xepulpshqy-hemtfup completes the activity by him/herself with no assistance from a helper. 5-Set-up or Clean-up Assistance-helper sets up or cleans up; patient completes activity. [place] assists only prior to or following the activity. 4-Supervision or Touching Assistance-helper provides verbal cues and/or touching/steadying and/or contact guard assistance as patient completes activity. Assistance may be provided throughout the activity or intermittently. 3-Partial/Moderate Assistance-helper does LESS THAN HALF the effort. [place] lifts, holds or supports trunk or limbs, but provides less than half the effort. 2-Substantial/Maximal Assistance-helper does MORE THAN HALF the effort. [place] lifts or holds trunk or limbs and provides more than half the effort. 5-Yxufsfzfk-ctvkdu does ALL the effort. Patient does none of the effort to complete the activity. Or, the assistance of 2 or more helpers is required for the patient to complete the activity. If activity was not attempted, code reason: 7-Patient Refused. 9-Not Applicable-not attempted and the patient did not perform the activity before the current illness, exacerbation or injury. 10-Not Attempted due to Environmental Limitations-(lack of equipment, weather restraints, etc.). 88-Not Attempted due to Medical Conditions or Safety Concerns. Eating (QC): 88 Oral Hygiene (QC): 5 (sponge swab) Shower/Bathe Self (QC): 5 (sponge) Upper Body Dressing (QC): 4 Lower Body Dressing (QC): 5 On/Off Footwear: 5 Toileting Hygiene (QC): 5 Toilet Transfer (QC): 5 Education OT Patient Education: Energy conservation, Modified ADL techniques, Progress toward Goal/Update tx plan, Purpose of tx/functional activities, Reviewed precautions, Rehab process, Safety issues, Transfer techniques Teaching Recipient: Patient Teaching Methods: Demonstration, Discussion Response to Teaching: Return Demonstration OT Investigator Utility Bill Complaints Goals Investigator Utility Bill Complaints Goals Eating (QC): 4 (if medically able) Oral Hygiene (QC): 5 Toileting Hygiene (QC): 6 Shower/Bathe Self (QC): 4 Upper Body Dressing (QC): 5 Lower Body Dressing (QC): 5 On/Off Footwear (QC): 6 1=Demonstrate adherence to instructed precautions during ADL tasks. 2=Patient will verbalize/demonstrate understanding of assistive devices/modifications for ADL. 3=Patient will improve strength/tolerance for activity to enable patient to perform ADL's. OT Education/Plan Discharge Recommendations Plan/Recommendations: Continue POC Treatment Plan/Plan of Care Treatment,Training & Education: Yes Patient would benefit from OT for education, treatment and training to promote independence in ADL's, mobility, safety and/or upper extremity function for ADL's. Plan of Care: ADL Retraining, Functional Mobility, Group Exercise/Act as Ind, UE Funct Exercise/Act Treatment Duration: Feb 04, 2023 Frequency: 5 times per week Estimated Hrs Per Day: .25 hour per day Agreement: Yes Rehab Potential: Fair Time Start Time: 11:10 Stop Time: 11:25 DATE: January 04, 2023 Total Time Billed (hr/min): 15 Billed Treatment Time ADL 15 min AMBER CHAUDHARY OT January 04, 2023 11:48
[2023-01-04 12:00] VITALS: BP 132/83
--- NOTE | 2023-01-04 12:41 | Diagnostic Imaging Report ---
CHEST 1 VIEW, AP/PA ONLY Indication: Chest pain around stoma Comparison: 12/24/2022 Findings: Stable position of tracheostomy tube. The tip of the enteric tube is not well seen on this examination but appears to terminate in the proximal stomach. Stable right Port-A-Cath. Scattered areas of bandlike atelectasis in the mid and lower lung zones are unchanged. No new pulmonary opacities. No pleural effusion or pneumothorax. Stable cardiomegaly. Impression: 1. Stable support devices. Dictated by: Dictated on workstation # [id number]
[2023-01-04] MEDS ORDERED: SODIUM ACETATE IV SCH ×10 (17:00)
[2023-01-04] MEDS ORDERED: SODIUM PHOSPHATE IV SCH ×10 (17:00)
[2023-01-04] MEDS ORDERED: [UNRECOGNIZED DRUG - OTHER] IV SCH ×10 (17:00)
[2023-01-04] MEDS ORDERED: POTASSIUM ACETATE IV SCH ×10 (17:00)
[2023-01-04 20:14] VITALS: BP 126/60
[2023-01-04] MEDS: ONDANSETRON 4 MG (ZOFRAN) ORAL DISSOLVE TAB PO PRN (22:28)
--- NOTE | 2023-01-05 06:00 | Progress Note - Hospitalist ---
Subjective HPI/CC On Admission Date Seen by Provider: January 05, 2023 Time Seen by Provider: 11:00 Subjective/Events-last exam Patient doing much better No major issues Check meds and labs Objective Exam Vital Signs Vital Signs Date Time Temp Pulse Resp B/P (MAP) Pulse Ox O2 Delivery O2 Flow Rate FiO2 01/05/23 19:36 36.4 105 18 132/85 (101) 99 Trach Collar 13.00 01/05/23 14:30 40 Capillary Refill : General Appearance: No Apparent Distress, WD/WN Respiratory: Lungs Clear, Normal Breath Sounds Cardiovascular: Regular Rate, Rhythm Results/Procedures Lab Patient resulted labs reviewed. Assessment/Plan Assessment and Plan Assess & Plan/Chief Complaint (1) Cancer of peritoneum (2) Acute kidney injury Status: Acute (3) Small bowel obstruction Status: Acute (4) Endometrial cancer Status: Acute (5) COPD (chronic obstructive pulmonary disease) Status: Chronic (6) Acute on chronic renal failure Status: Acute (7) Urinary tract infection Status: Resolved Plan: TPN ROBINA MELLO DO January 05, 2023 06:00
[2023-01-05] MEDS: 1/2 NS IV SOLUTION 1,000 ML IV SCH ×2 (07:58→15:38)
[2023-01-05 08:09] VITALS: BP 130/94
[2023-01-05] MEDS: RT-ALBUTEROL/IPRATROPIUM 3 ML (DUONEB) VIAL INH SCH ×2 (08:10→21:43)
[2023-01-05] MEDS: SENNOSIDES 8.6 MG (SENOKOT) TAB PO SCH ×2 (09:20→19:25)
[2023-01-05] MEDS: ENOXAPARIN 60 MG/0.6 ML (LOVENOX) SYR SC SCH ×2 (09:20→19:50)
[2023-01-05] MEDS: DOCUSATE SODIUM 100 MG (COLACE) CAP PO SCH ×2 (09:20→19:25)
--- NOTE | 2023-01-05 10:19 | Physical Therapy Progress Note ---
Therapy Progress Note Attempted to see patient for PT treatment. She reports she doesn't want to right now, but maybe later this afternoon. Will attempt again as time permits. MIRELLA ODONNELL PT January 05, 2023 10:19
--- NOTE | 2023-01-05 15:37 | Occupational Ther Daily Note ---
OT Current Status-Daily Note Subjective Sitting EOB agreeable to OT Mental Status/Objective Patient Orientation: Situation Attachments: IV, NG Tube, Oxygen ADL-Treatment Therapy Code Descriptions/Definitions Functional [place] Measure: 0=Not Assessed/NA 4=Minimal Assistance 1=Total Assistance 5=Supervision or Setup 2=Maximal Assistance 6=Modified [place] 3=Moderate Assistance 7=Complete IndependenceSCALE: Activities may be completed with or without assistive devices. 1-Ommvgqcidh-jxpkmuo completes the activity by him/herself with no assistance from a helper. 5-Set-up or Clean-up Assistance-helper sets up or cleans up; patient completes activity. [place] assists only prior to or following the activity. 4-Supervision or Touching Assistance-helper provides verbal cues and/or touching/steadying and/or contact guard assistance as patient completes activity. Assistance may be provided throughout the activity or intermittently. 3-Partial/Moderate Assistance-helper does LESS THAN HALF the effort. [place] lifts, holds or supports trunk or limbs, but provides less than half the effort. 2-Substantial/Maximal Assistance-helper does MORE THAN HALF the effort. [place] lifts or holds trunk or limbs and provides more than half the effort. 5-Zyklnkscw-zopwro does ALL the effort. Patient does none of the effort to complete the activity. Or, the assistance of 2 or more helpers is required for the patient to complete the activity. If activity was not attempted, code reason: 7-Patient Refused. 9-Not Applicable-not attempted and the patient did not perform the activity before the current illness, exacerbation or injury. 10-Not Attempted due to Environmental Limitations-(lack of equipment, weather restraints, etc.). 88-Not Attempted due to Medical Conditions or Safety Concerns. Does not perform ADLS this session Other Treatment Red therapy median resistance band BUE shoulder/elbow flex/ex/ abd exercise 10 r eps each for endurance and sustaining strength for ADLS and transfers, reduced tension of left Shoulder d/t pain. Patent tolerated ther ex well, band left in room for continued use Education OT Patient Education: Exercise program, Modified ADL techniques, Progress toward Goal/Update tx plan, Purpose of tx/functional activities, Reviewed precautions, Rehab process, Use of adapted equipment Teaching Recipient: Patient Teaching Methods: Demonstration, Discussion Response to Teaching: Return Demonstration OT [facility] Goals Communications Administrator Goals Eating (QC): 4 (if medically able) Oral Hygiene (QC): 5 Toileting Hygiene (QC): 6 Shower/Bathe Self (QC): 4 Upper Body Dressing (QC): 5 Lower Body Dressing (QC): 5 On/Off Footwear (QC): 6 1=Demonstrate adherence to instructed precautions during ADL tasks. 2=Patient will verbalize/demonstrate understanding of assistive devices/[place] fications for ADL. 3=Patient will improve strength/tolerance for activity to enable patient to perform ADL's. OT Education/Plan Problem List/Assessment Assessment: Decreased Activ Tolerance Discharge Recommendations Plan/Recommendations: Continue POC Treatment Plan/Plan of Care Patient would benefit from OT for education, treatment and training to promote independence in ADL's, mobility, safety and/or upper extremity function for ADL's. Plan of Care: ADL Retraining, Functional Mobility, Group Exercise/Act as Ind, UE Funct Exercise/Act Treatment Duration: Feb 04, 2023 Frequency: 5 times per week Estimated Hrs Per Day: .25 hour per day Agreement: Yes Rehab Potential: Fair Time Start Time: 14:00 Stop Time: 14:20 DATE: January 05, 2023 Total Time Billed (hr/min): 20 Billed Treatment Time EX 20 min AMBER CHAUDHARY OT January 05, 2023 15:37
[2023-01-05] MEDS: SODIUM PHOSPHATE IV SCH ×10 (16:46)
[2023-01-05] MEDS: SODIUM ACETATE IV SCH ×10 (16:46)
[2023-01-05] MEDS: POTASSIUM ACETATE IV SCH ×10 (16:46)
[2023-01-05] MEDS: [UNRECOGNIZED DRUG - OTHER] IV SCH ×10 (16:46)
[2023-01-05 19:36] VITALS: BP 132/85
[2023-01-06 00:29] VITALS: BP 130/94
[2023-01-06] MEDS: 1/2 NS IV SOLUTION 1,000 ML IV SCH ×3 (00:32→17:01)
--- NOTE | 2023-01-06 05:17 | Progress Note - Hospitalist ---
Subjective HPI/CC On Admission Date Seen by Provider: Jan 06, 2023 Time Seen by Provider: 11:00 Subjective/Events-last exam No major problems Wants to eat and drink Conferred with Dr. Danielson and last BM occurs she cannot consume any solid food Review of Systems General: Fatigue, Malaise Objective Exam Vital Signs Vital Signs Date Time Temp Pulse Resp B/P (MAP) Pulse Ox O2 Delivery O2 Flow Rate FiO2 01/06/23 20:32 Trach Collar 8.00 30 01/06/23 19:30 36.4 107 18 126/64 (84) 97 Capillary Refill : General Appearance: No Apparent Distress, WD/WN, Chronically ill, Obese Respiratory: Lungs Clear, Normal Breath Sounds Cardiovascular: Regular Rate, Rhythm Neurologic/Psychiatric: Alert, Oriented x3, No Motor/Sensory Deficits, Depressed Affect Results/Procedures Lab Patient resulted labs reviewed. Assessment/Plan Assessment and Plan Assess & Plan/Chief Complaint (1) Cancer of peritoneum (2) Acute kidney injury Status: Acute (3) Small bowel obstruction Status: Acute (4) Endometrial cancer Status: Acute (5) COPD (chronic obstructive pulmonary disease) Status: Chronic (6) Acute on chronic renal failure Status: Acute (7) Urinary tract infection Status: Resolved Plan: TPN Await bowel function return Chemotherapy ROBINA MELLO DO Jan 06, 2023 05:17
[2023-01-06] MEDS: RT-ALBUTEROL/IPRATROPIUM 3 ML (DUONEB) VIAL INH SCH ×2 (07:02→20:32)
[2023-01-06 07:53] VITALS: BP 140/98
[2023-01-06] MEDS: SENNOSIDES 8.6 MG (SENOKOT) TAB PO SCH ×2 (07:59→19:41)
[2023-01-06] MEDS: DOCUSATE SODIUM 100 MG (COLACE) CAP PO SCH ×2 (07:59→19:41)
[2023-01-06] MEDS: ENOXAPARIN 60 MG/0.6 ML (LOVENOX) SYR SC SCH ×2 (09:00→20:58)
--- NOTE | 2023-01-06 11:36 | Physical Therapy Daily Note ---
PT Daily Note-Current Subjective Patient agrees to PT/OT cotreat. Pain Section J - Health Conditions 1. Rarely or not at all 2. Occasionally 3. Frequently 4. Almost constantly 8. Unable to answer Pain Effect on Sleep: 1 Pain Interference with Therapy: 1 Pain Interference w/Day-to-Day: 1 Mental Status Patient Orientation: Normal For Age Attachments: NG Tube, Oxygen, IV Transfers SCALE: Activities may be completed with or without assistive devices. 5-Dlkpqrmzxv-wkxyhda completes the activity by him/herself with no assistance from a helper. 5-Set-up or Clean-up Assistance-helper sets up or cleans up; patient completes activity. [place] assists only prior to or following the activity. 4-Supervision or Touching Assistance-helper provides verbal cues and/or touching/steadying and/or contact guard assistance as patient completes activity. Assistance may be provided throughout the activity or intermittently. 3-Partial/Moderate Assistance-helper does LESS THAN HALF the effort. [place] lifts, holds or supports trunk or limbs, but provides less than half the effort. 2-Substantial/Maximal Assistance-helper does MORE THAN HALF the effort. [place] lifts or holds trunk or limbs and provides more than half the effort. 7-Tovonsqej-lhvvyu does ALL the effort. Patient does none of the effort to complete the activity. Or, the assistance of 2 or more helpers is required for the patient to complete the activity. If activity was not attempted, code reason: 7-Patient Refused. 9-Not Applicable-not attempted and the patient did not perform the activity before the current illness, exacerbation or injury. 10-Not Attempted due to Environmental Limitations-(lack of equipment, weather restraints, etc.). 88-Not Attempted due to Medical Conditions or Safety Concerns. Sit to Stand (QC): 5 Weight Bearing Right Lower Extremity: Right Full Weight Bearing Left Lower Extremity: Left Full Weight Bearing Gait Training Distance: 275' Walk 10 feet (QC): 5 Walk 50 ft with 2 Turns(QC): 5 Walk 150 ft (QC): 5 Gait Assistive Device: FWW safe and functional with no deviation Assessment Patient does fatigue with minimal activity and requires standing recovery periods due to this. PT/OT cotreat to conserve patient's functional endurance. Patient returned to sitting EOB with needs met. PT Retirement Goals Car Distributor Goals PT Retirement Goals Time Frame: Feb 04, 2023 Roll Left & Right (QC): 6 Sit to Lying (QC): 6 Lying-Sitting on Side/Bed(QC): 6 Sit to Stand (QC): 6 Chair/Ycq-wx-Norml Xfer(QC): 6 Toilet Transfer (QC): 6 Car Transfer (QC): 6 Does the Patient Walk: Yes Walk 10 feet (QC): 6 Walk 50ft with 2 Turns (QC): 6 Walk 150 ft (QC): 6 Walking 10ft on Uneven Surface: 6 1 Step (curb) (QC): 9 4 Steps (QC): 9 12 Steps (QC): 9 Picking up an Object (QC): 4 Does the Pt use WC or Scooter?: No Wheel 50 feet with 2 turns (QC: 9 Wheel 150 feet: 9 PT Plan Treatment/Plan Treatment Plan: Continue Plan of Care Treatment Plan: Bed Mobility, Education, Functional Activity Ambar, Functional Strength, Group Therapy, Gait, Safety, Therapeutic Exercise, Transfers Treatment Duration: Feb 04, 2023 Frequency: 6 times per week Estimated Hrs Per Day: .25 hour per day Patient and/or Family Agrees t: Yes Time Time In: 1038 Time Out: 1053 DATE: Jan 06, 2023 Total Billed Treatment Time: 15 Total Billed Treatment 1 visit FA 15 min NAZARIO ELIAS PT Jan 06, 2023 11:36
--- NOTE | 2023-01-06 14:40 | Occupational Ther Daily Note ---
OT Current Status-Daily Note Subjective Up EOB sitting, agreeable to therapy Appearance Patient demonstrated humorous comments and jokes this visit Mental Status/Objective Patient Orientation: Situation Attachments: Central Line, NG Tube ADL-Treatment Therapy Code Descriptions/Definitions Functional [place] Measure: 0=Not Assessed/NA 4=Minimal Assistance 1=Total Assistance 5=Supervision or Setup 2=Maximal Assistance 6=Modified [place] 3=Moderate Assistance 7=Complete IndependenceSCALE: Activities may be completed with or without assistive devices. 2-Vopppqdock-znmhjgr completes the activity by him/herself with no assistance from a helper. 5-Set-up or Clean-up Assistance-helper sets up or cleans up; patient completes activity. [place] assists only prior to or following the activity. 4-Supervision or Touching Assistance-helper provides verbal cues and/or touching/steadying and/or contact guard assistance as patient completes activity. Assistance may be provided throughout the activity or intermittently. 3-Partial/Moderate Assistance-helper does LESS THAN HALF the effort. [place] lifts, holds or supports trunk or limbs, but provides less than half the effort. 2-Substantial/Maximal Assistance-helper does MORE THAN HALF the effort. [place] lifts or holds trunk or limbs and provides more than half the effort. 3-Iegjojjto-viicnn does ALL the effort. Patient does none of the effort to complete the activity. Or, the assistance of 2 or more helpers is required for the patient to complete the activity. If activity was not attempted, code reason: 7-Patient Refused. 9-Not Applicable-not attempted and the patient did not perform the activity before the current illness, exacerbation or injury. 10-Not Attempted due to Environmental Limitations-(lack of equipment, weather restraints, etc.). 88-Not Attempted due to Medical Conditions or Safety Concerns. Shower/Bathe Self (QC): 7 (Patient sponge bathes, OT recommend patient positionon shower seat and allow assistance for shower hose w/ bathing) Upper Body Dressing (QC): 4 Lower Body Dressing (QC): 5 On/Off Footwear: 5 Toileting Hygiene (QC): 5 Toilet Transfer (QC): 5 Other Treatment Functional endurance activity performed in standing Education OT Patient Education: Correct positioning, Exercise program, Modified ADL techniques, Progress toward Goal/Update tx plan, Purpose of tx/functional activities, Reviewed precautions, Rehab process, Safety issues Teaching Recipient: Patient Teaching Methods: Discussion Response to Teaching: Verbalize Understanding OT Prison Goals First Aid Officer Goals Eating (QC): 4 (if medically able) Oral Hygiene (QC): 5 Toileting Hygiene (QC): 6 Shower/Bathe Self (QC): 4 Upper Body Dressing (QC): 5 Lower Body Dressing (QC): 5 On/Off Footwear (QC): 6 1=Demonstrate adherence to instructed precautions during ADL tasks. 2=Patient will verbalize/demonstrate understanding of assistive devices/modifications for ADL. 3=Patient will improve strength/tolerance for activity to enable patient to perform ADL's. OT Education/Plan Problem List/Assessment Assessment: Decreased Activ Tolerance, Impaired Self-Care Skills Discharge Recommendations Plan/Recommendations: Continue POC Treatment Plan/Plan of Care Patient would benefit from OT for education, treatment and training to promote independence in ADL's, mobility, safety and/or upper extremity function for ADL's. Plan of Care: ADL Retraining, Functional Mobility, Group Exercise/Act as Ind, UE Funct Exercise/Act Treatment Duration: Feb 04, 2023 Frequency: 5 times per week Estimated Hrs Per Day: .25 hour per day Agreement: Yes Rehab Potential: Fair Time Start Time: 10:38 Stop Time: 10:53 DATE: Jan 06, 2023 Total Time Billed (hr/min): 15 Billed Treatment Time FA 15 min, co-tx AMBER CHAUDHARY OT Jan 06, 2023 14:40
[2023-01-06] MEDS: SODIUM PHOSPHATE IV SCH ×10 (17:01)
[2023-01-06] MEDS: ONDANSETRON 4 MG/2 ML (SDV) Z0FRAN IV PRN (17:01)
[2023-01-06] MEDS: POTASSIUM ACETATE IV SCH ×10 (17:01)
[2023-01-06] MEDS: [UNRECOGNIZED DRUG - OTHER] IV SCH ×10 (17:01)
[2023-01-06] MEDS: SODIUM ACETATE IV SCH ×10 (17:01)
[2023-01-06 19:30] VITALS: BP 126/64
[2023-01-07 06:25] LABS: ALBUMIN 2.6 GM/DL (3.2-4.5); POTASSIUM 3.9 MMOL/L (3.6-5.0)
[2023-01-07 06:26] LABS: CALCIUM 8.9 MG/DL (8.5-10.1)
[2023-01-07 06:29] LABS: BILIRUBIN,TOTAL 0.6 MG/DL (0.1-1.0)
[2023-01-07 06:31] LABS: CREATININE SERUM 1.74 MG/DL (0.60-1.30); PHOSPHORUS 3.7 MG/DL (2.3-4.7)
[2023-01-07 06:34] LABS: MAGNESIUM 2.3 MG/DL (1.6-2.4)
[2023-01-07] MEDS: RT-ALBUTEROL/IPRATROPIUM 3 ML (DUONEB) VIAL INH SCH ×2 (07:30→21:05)
[2023-01-07] MEDS ORDERED: PALONOSETRON HCL 0.25 MG, dexAMETHasone INJECTION 10 MG in NS (IVPB) 50 ML IV SCH (08:15)
[2023-01-07] MEDS ORDERED: PACLitaxel PROTEIN 160 MG in EMPTY IV BAG (PVC) CANCER CTR 1 EA IV SCH (08:15)
[2023-01-07] MEDS ORDERED: NS IV SCH (08:15)
[2023-01-07] MEDS ORDERED: CARBOPLATIN IV SCH (08:15)
--- NOTE | 2023-01-07 08:27 | Progress Note - Hospitalist ---
Subjective HPI/CC On Admission Date Seen by Provider: Jan 07, 2023 Time Seen by Provider: 11:00 Subjective/Events-last exam No significant changes No BM or flatus Chemotherapy scheduled Flat affect Review of Systems General: Fatigue, Malaise Objective Exam Vital Signs Vital Signs Date Time Temp Pulse Resp B/P (MAP) Pulse Ox O2 Delivery O2 Flow Rate FiO2 01/07/23 21:06 96 Trach Collar 8.00 30 01/07/23 19:04 36.5 110 19 169/104 (125) Capillary Refill : General Appearance: No Apparent Distress, WD/WN, Chronically ill Respiratory: Lungs Clear, Normal Breath Sounds Cardiovascular: Regular Rate, Rhythm Neurologic/Psychiatric: Alert, Oriented x3, Depressed Affect Results/Procedures Lab Laboratory Tests 01/07/23 06:02 Patient resulted labs reviewed. Assessment/Plan Assessment and Plan Assess & Plan/Chief Complaint (1) Cancer of peritoneum (2) Acute kidney injury Status: Acute (3) Small bowel obstruction Status: Acute (4) Endometrial cancer Status: Acute (5) COPD (chronic obstructive pulmonary disease) Status: Chronic (6) Acute on chronic renal failure Status: Acute (7) Urinary tract infection Status: Resolved Plan: TPN Await bowel function return Chemotherapy ROBINA MELLO DO Jan 07, 2023 08:27
[2023-01-07 08:49] VITALS: BP 121/91
[2023-01-07] MEDS ORDERED: NS IV 500 ML 500 ML ONE (09:14)
[2023-01-07] MEDS: DOCUSATE SODIUM 100 MG (COLACE) CAP PO SCH ×2 (09:34→20:57)
[2023-01-07] MEDS: SENNOSIDES 8.6 MG (SENOKOT) TAB PO SCH ×2 (09:34→20:57)
[2023-01-07] MEDS: 1/2 NS IV SOLUTION 1,000 ML IV SCH ×3 (09:36→15:36)
[2023-01-07] MEDS: ENOXAPARIN 60 MG/0.6 ML (LOVENOX) SYR SC SCH ×2 (10:59→21:10)
[2023-01-07] MEDS: ONDANSETRON 4 MG/2 ML (SDV) Z0FRAN IV PRN (10:59)
--- NOTE | 2023-01-07 13:59 | Physical Therapy Progress Note ---
Therapy Progress Note Patient reports extreme fatigue due to receiving chemo on this date. PT will attempt tomorrow. 1 ref NAZARIO ELIAS PT Jan 07, 2023 13:59
--- NOTE | 2023-01-07 14:34 | Occupational Ther Daily Note ---
OT Current Status-Daily Note Subjective Up EOB sitting working on puzzle, agreeable to OT and Rec therapy, Puzzle placed aside and ADLS performed Mental Status/Objective Patient Orientation: Person, Place, Time, Situation Attachments: NG Tube, Oxygen ADL-Treatment Therapy Code Descriptions/Definitions Functional [place] Measure: 0=Not Assessed/NA 4=Minimal Assistance 1=Total Assistance 5=Supervision or Setup 2=Maximal Assistance 6=Modified [place] 3=Moderate Assistance 7=Complete IndependenceSCALE: Activities may be completed with or without assistive devices. 3-Ooxjlsubuw-eiwkdgo completes the activity by him/herself with no assistance from a helper. 5-Set-up or Clean-up Assistance-helper sets up or cleans up; patient completes activity. [place] assists only prior to or following the activity. 4-Supervision or Touching Assistance-helper provides verbal cues and/or touching/steadying and/or contact guard assistance as patient completes activity. Assistance may be provided throughout the activity or intermittently. 3-Partial/Moderate Assistance-helper does LESS THAN HALF the effort. [place] lifts, holds or supports trunk or limbs, but provides less than half the effort. 2-Substantial/Maximal Assistance-helper does MORE THAN HALF the effort. [place] lifts or holds trunk or limbs and provides more than half the effort. 1-Qgkqnjjxx-igbzeo does ALL the effort. Patient does none of the effort to complete the activity. Or, the assistance of 2 or more helpers is required for the patient to complete the activity. If activity was not attempted, code reason: 7-Patient Refused. 9-Not Applicable-not attempted and the patient did not perform the activity before the current illness, exacerbation or injury. 10-Not Attempted due to Environmental Limitations-(lack of equipment, weather restraints, etc.). 88-Not Attempted due to Medical Conditions or Safety Concerns. Hair grooming performed w/ Patient involvement for braid design, patient sutton thorugh hair w/ wide tooth comb OT provided. OT lawanda 4 separate romansh lawanda connecting to one at base. During hair grooming OT notes loss of hair and discusses with patient, Patient reports chemo is causing her to loss her hair. P alhaji is pleased and grateful for hair grooming Education OT Patient Education: Modified ADL techniques, Safety issues Teaching Recipient: Patient Teaching Methods: Discussion Response to Teaching: Verbalize Understanding OT Sn[employer] Goals Manager Product Management Goals Eating (QC): 4 (if medically able) Oral Hygiene (QC): 5 Toileting Hygiene (QC): 6 Shower/Bathe Self (QC): 4 Upper Body Dressing (QC): 5 Lower Body Dressing (QC): 5 On/Off Footwear (QC): 6 1=Demonstrate adherence to instructed precautions during ADL tasks. 2=Patient will verbalize/demonstrate understanding of assistive devices/modifications for ADL. 3=Patient will improve strength/tolerance for activity to enable patient to perform ADL's. OT Education/Plan Discharge Recommendations Plan/Recommendations: Continue POC Treatment Plan/Plan of Care Patient would benefit from OT for education, treatment and training to promote independence in ADL's, mobility, safety and/or upper extremity function for ADL's. Plan of Care: ADL Retraining, Functional Mobility, Group Exercise/Act as Ind, UE Funct Exercise/Act Treatment Duration: Feb 04, 2023 Frequency: 5 times per week Estimated Hrs Per Day: .25 hour per day Agreement: Yes Rehab Potential: Fair Time Start Time: 14:00 Stop Time: 14:15 DATE: Jan 07, 2023 Total Time Billed (hr/min): 15 Billed Treatment Time ADL 15 min AMBER CHAUDHARY OT Jan 07, 2023 14:34
[2023-01-07] MEDS: [UNRECOGNIZED DRUG - OTHER] IV SCH ×10 (17:18)
[2023-01-07] MEDS: SODIUM PHOSPHATE IV SCH ×10 (17:18)
[2023-01-07] MEDS: POTASSIUM ACETATE IV SCH ×10 (17:18)
[2023-01-07] MEDS: SODIUM ACETATE IV SCH ×10 (17:18)
[2023-01-07 19:04] VITALS: BP 169/104
[2023-01-08 08:06] VITALS: BP 143/91
[2023-01-08] MEDS: ONDANSETRON 4 MG/2 ML (SDV) Z0FRAN IV PRN (08:12)
[2023-01-08] MEDS: RT-ALBUTEROL/IPRATROPIUM 3 ML (DUONEB) VIAL INH SCH ×2 (08:53→18:33)
[2023-01-08] MEDS: SENNOSIDES 8.6 MG (SENOKOT) TAB PO SCH ×2 (10:19→20:56)
[2023-01-08] MEDS: ENOXAPARIN 40 MG/0.4 ML (LOVENOX) SYR SC SCH ×2 (10:19→20:58)
[2023-01-08] MEDS: DOCUSATE SODIUM 100 MG (COLACE) CAP PO SCH ×2 (10:19→20:56)
--- NOTE | 2023-01-08 12:06 | Physical Therapy Daily Note ---
PT Daily Note-Current Subjective Pt EOB. Reports she is "tired from the chemo yesterday". Agreeable to EOB exercises. At the end of treatment Pt requested a trach care kit; "Something isn't right about it". RN notified immediately. Pain Section J - Health Conditions 1. Rarely or not at all 2. Occasionally 3. Frequently 4. Almost constantly 8. Unable to answer Pain Effect on Sleep: 1 Pain Interference with Therapy: 1 Pain Interference w/Day-to-Day: 1 Mental Status Patient Orientation: Person, Place, Time, Situation Attachments: NG Tube, Other-See Comments (trach), IV Transfers SCALE: Activities may be completed with or without assistive devices. 1-Bsuyygqeqk-slucpuv completes the activity by him/herself with no assistance from a helper. 5-Set-up or Clean-up Assistance-helper sets up or cleans up; patient completes activity. [place] assists only prior to or following the activity. 4-Supervision or Touching Assistance-helper provides verbal cues and/or touching/steadying and/or contact guard assistance as patient completes activity. Assistance may be provided throughout the activity or intermittently. 3-Partial/Moderate Assistance-helper does LESS THAN HALF the effort. [place] lifts, holds or supports trunk or limbs, but provides less than half the effort. 2-Substantial/Maximal Assistance-helper does MORE THAN HALF the effort. [place] lifts or holds trunk or limbs and provides more than half the effort. 4-Xzgwsnhal-atcbgr does ALL the effort. Patient does none of the effort to complete the activity. Or, the assistance of 2 or more helpers is required for the patient to complete the activity. If activity was not attempted, code reason: 7-Patient Refused. 9-Not Applicable-not attempted and the patient did not perform the activity before the current illness, exacerbation or injury. 10-Not Attempted due to Environmental Limitations-(lack of equipment, weather restraints, etc.). 88-Not Attempted due to Medical Conditions or Safety Concerns. Sit to Stand (QC): 5 Weight Bearing Right Lower Extremity: Right Full Weight Bearing Left Lower Extremity: Left Full Weight Bearing Exercises Seated Therapy Exercises: Ankle pumps, Sit to stand, Long arc quads, Hip flexion, Hamstring Curls, Hip abd/add Seated Reps: 10 Standing: Marching Standing Reps: 10 2 x 10 seated exercises Treatments EOB seated and standing exercises for functional strengthening. Pt at EOB post treatment per her request. NA in room, RN notified of Pt request for trach care kit. Assessment Current Status: Good Progress Pt tolerated well. Good balance with standing exercises. PT Senior Care Goals Hat Model Goals PT Senior Care Goals Time Frame: Feb 04, 2023 Roll Left & Right (QC): 6 Sit to Lying (QC): 6 Lying-Sitting on Side/Bed(QC): 6 Sit to Stand (QC): 6 Chair/Tqf-iu-Kzxul Xfer(QC): 6 Toilet Transfer (QC): 6 Car Transfer (QC): 6 Does the Patient Walk: Yes Walk 10 feet (QC): 6 Walk 50ft with 2 Turns (QC): 6 Walk 150 ft (QC): 6 Walking 10ft on Uneven Surface: 6 1 Step (curb) (QC): 9 4 Steps (QC): 9 12 Steps (QC): 9 Picking up an Object (QC): 4 Does the Pt use WC or Scooter?: No Wheel 50 feet with 2 turns (QC: 9 Wheel 150 feet: 9 PT Plan Problem List Problem List: Activity Tolerance, Functional Strength, Safety, Balance, Gait, Transfer, Bed Mobility Treatment/Plan Treatment Plan: Continue Plan of Care Treatment Plan: Bed Mobility, Education, Functional Activity Ambar, Functional Strength, Group Therapy, Gait, Safety, Therapeutic Exercise, Transfers Treatment Duration: Feb 04, 2023 Frequency: 6 times per week Estimated Hrs Per Day: .25 hour per day Patient and/or Family Agrees t: Yes Time Time In: 1132 Time Out: 1147 DATE: Jan 08, 2023 Total Billed Treatment Time: 15 Total Billed Treatment 1, ISMAEL Carvajal DPT Jan 08, 2023 12:06
[2023-01-08] MEDS: SODIUM ACETATE IV SCH ×10 (17:38)
[2023-01-08] MEDS: SODIUM PHOSPHATE IV SCH ×10 (17:38)
[2023-01-08] MEDS: [UNRECOGNIZED DRUG - OTHER] IV SCH ×10 (17:38)
[2023-01-08] MEDS: POTASSIUM ACETATE IV SCH ×10 (17:38)
[2023-01-08 19:29] VITALS: BP 134/86
[2023-01-09] MEDS: ONDANSETRON 4 MG/2 ML (SDV) Z0FRAN IV PRN ×2 (05:50→14:29)
[2023-01-09] MEDS: RT-ALBUTEROL/IPRATROPIUM 3 ML (DUONEB) VIAL INH SCH ×2 (07:30→20:15)
[2023-01-09] MEDS: DOCUSATE SODIUM 100 MG (COLACE) CAP PO SCH ×2 (08:19→21:00)
[2023-01-09] MEDS: SENNOSIDES 8.6 MG (SENOKOT) TAB PO SCH ×2 (08:19→21:00)
[2023-01-09 08:46] VITALS: BP 140/86
[2023-01-09] MEDS: ENOXAPARIN 40 MG/0.4 ML (LOVENOX) SYR SC SCH ×2 (09:40→20:59)
[2023-01-09] MEDS: [UNRECOGNIZED DRUG - OTHER] IV SCH ×10 (17:36)
[2023-01-09] MEDS: SODIUM ACETATE IV SCH ×10 (17:36)
[2023-01-09] MEDS: SODIUM PHOSPHATE IV SCH ×10 (17:36)
[2023-01-09] MEDS: POTASSIUM ACETATE IV SCH ×10 (17:36)
[2023-01-09 20:33] VITALS: BP 103/68
[2023-01-09 22:05] VITALS: BP 103/68
[2023-01-10 07:42] VITALS: BP 117/81
[2023-01-10] MEDS: ONDANSETRON 4 MG/2 ML (SDV) Z0FRAN IV PRN (08:11)
[2023-01-10] MEDS: DOCUSATE SODIUM 100 MG (COLACE) CAP PO SCH ×2 (08:14→19:43)
[2023-01-10] MEDS: SENNOSIDES 8.6 MG (SENOKOT) TAB PO SCH ×2 (08:15→19:44)
[2023-01-10] MEDS: RT-ALBUTEROL SULF 2.5 MG/3 ML PRE-MIX VIAL INH PRN (08:43)
[2023-01-10] MEDS: ENOXAPARIN 40 MG/0.4 ML (LOVENOX) SYR SC SCH ×2 (10:32→20:08)
--- NOTE | 2023-01-10 11:28 | Physical Therapy Progress Note ---
Therapy Progress Note Patient declined PT on this date due to not feeling well. PT will attempt tomorrow a.m. 1 ref NAZARIO ELIAS PT Jan 10, 2023 11:28
--- NOTE | 2023-01-10 15:24 | Progress Note ---
Subjective Subjective/Events-last exam No change in status. Patient states that she is doing ok. Sat down and had a long discussion regarding goals of care. Patient is hesitant for hospice but states that her goals are to get home. She has not had any BMs, unable to tolerate PO and is dependent on NG. Review of Systems General: Fatigue, Malaise Pulmonary: No Dyspnea, No Cough Cardiovascular: No: Chest Pain, Palpitations Gastrointestinal: Nausea, Abdominal Pain Neurological: Weakness Objective Exam Last Set of Vital Signs Vital Signs Date Time Temp Pulse Resp B/P (MAP) Pulse Ox O2 Delivery O2 Flow Rate FiO2 01/10/23 15:04 Trach Collar 8.00 30 01/10/23 08:59 96 01/10/23 07:42 36.6 111 18 117/81 (93) Capillary Refill : I&O Intake and Output 01/10/23 00:00 Intake Total 840 ml Output Total 3290 ml Balance -2450 ml Intake Oral 840 ml Output Urine Total 2240 ml Gastric Drainage Total 1050 ml # Voids 2 General: Alert, Oriented X3, No Acute Distress Lungs: Clear to Auscultation, Normal Air Movement, Other (Trach shield in place) Heart: Regular Rate, No Murmurs Abdomen: Soft, Other (No Bowel sounds) Extremities: Other (trace edema bilateral LE) Neuro: Normal Speech Results/Procedures Lab Laboratory Tests 01/10/23 12:36: Glucometer 105 Assessment/Plan Assessment/Plan (1) Small bowel obstruction Status: Acute Assessment & Plan: Not a surgical candidate, SBO due to cancer mets, receiving TPN, NG in place and receiving chemo. 01/10: Continues to get TPN, NG dependent, discussed goals of care today, patient states that she would like to go home but not on hospice at this time (2) Endometrial cancer Status: Chronic Assessment & Plan: Treatment per Oncology with weekly chemo. Family wondering how long before they will know if effective, discussed that is uncertain, they do recognize that the other option is comfort goals and hospice and I did remind Aayh she can choose that at any point if she wants to. 01/10: No change in bowel status at this time (3) Cancer of peritoneum Status: Chronic (4) Tracheostomy dependent Status: Chronic (5) HTN (hypertension) Status: Chronic (6) Acute on chronic renal failure Status: Acute Assessment & Plan: Worsening creatinine, IVF increased 12/30 (7) Acute hepatitis Status: Acute Assessment & Plan: 01/10: Resultant from cancer/TPN/Chemo, repeat CMP tomorrow AM BRITT VELASCO MD Jan 10, 2023 15:24
--- NOTE | 2023-01-10 15:25 | Occupational Ther Daily Note ---
OT Current Status-Daily Note Subjective Sitting on EOB w/ low motivation, agrees for tidy of room and novel selection for leisure time Mental Status/Objective Patient Orientation: Situation ADL-Treatment Therapy Code Descriptions/Definitions Functional [place] Measure: 0=Not Assessed/NA 4=Minimal Assistance 1=Total Assistance 5=Supervision or Setup 2=Maximal Assistance 6=Modified [place] 3=Moderate Assistance 7=Complete IndependenceSCALE: Activities may be completed with or without assistive devices. 6-Xrzzyohcla-owphzxu completes the activity by him/herself with no assistance from a helper. 5-Set-up or Clean-up Assistance-helper sets up or cleans up; patient completes activity. [place] assists only prior to or following the activity. 4-Supervision or Touching Assistance-helper provides verbal cues and/or touching/steadying and/or contact guard assistance as patient completes activity. Assistance may be provided throughout the activity or intermittently. 3-Partial/Moderate Assistance-helper does LESS THAN HALF the effort. [place] lifts, holds or supports trunk or limbs, but provides less than half the effort. 2-Substantial/Maximal Assistance-helper does MORE THAN HALF the effort. [place] lifts or holds trunk or limbs and provides more than half the effort. 3-Btjibyhkt-zkcojd does ALL the effort. Patient does none of the effort to complete the activity. Or, the assistance of 2 or more helpers is required for the patient to complete the activity. If activity was not attempted, code reason: 7-Patient Refused. 9-Not Applicable-not attempted and the patient did not perform the activity before the current illness, exacerbation or injury. 10-Not Attempted due to Environmental Limitations-(lack of equipment, weather restraints, etc.). 88-Not Attempted due to Medical Conditions or Safety Concerns. Other Treatment Functional reach, static standing tasks, discussion of choice of 3 novels. Education OT Patient Education: Purpose of tx/functional activities Teaching Recipient: Patient Response to Teaching: Verbalize Understanding OT Blacksmith Apprentice Goals Skilled Nursing Goals Eating (QC): 4 (if medically able) Oral Hygiene (QC): 5 Toileting Hygiene (QC): 6 Shower/Bathe Self (QC): 4 Upper Body Dressing (QC): 5 Lower Body Dressing (QC): 5 On/Off Footwear (QC): 6 1=Demonstrate adherence to instructed precautions during ADL tasks. 2=Patient will verbalize/demonstrate understanding of assistive devices/modifications for ADL. 3=Patient will improve strength/tolerance for activity to enable patient to perform ADL's. OT Education/Plan Discharge Recommendations Plan/Recommendations: Continue POC Treatment Plan/Plan of Care Patient would benefit from OT for education, treatment and training to promote independence in ADL's, mobility, safety and/or upper extremity function for ADL's. Plan of Care: ADL Retraining, Functional Mobility, Group Exercise/Act as Ind, UE Funct Exercise/Act Treatment Duration: Feb 04, 2023 Frequency: 5 times per week Estimated Hrs Per Day: .25 hour per day Agreement: Yes Rehab Potential: Fair Time Start Time: 14:17 Stop Time: 14:33 DATE: Jan 10, 2023 Total Time Billed (hr/min): 16 Billed Treatment Time FA 16 min AMBER CHAUDHARY OT Jan 10, 2023 15:24
[2023-01-10] MEDS: SODIUM ACETATE IV SCH ×10 (17:46)
[2023-01-10] MEDS: SODIUM PHOSPHATE IV SCH ×10 (17:46)
[2023-01-10] MEDS: POTASSIUM ACETATE IV SCH ×10 (17:46)
[2023-01-10] MEDS: [UNRECOGNIZED DRUG - OTHER] IV SCH ×10 (17:46)
[2023-01-10 19:10] VITALS: BP 102/64
[2023-01-11] MEDS: ONDANSETRON 4 MG/2 ML (SDV) Z0FRAN IV PRN ×3 (05:24→15:18)
[2023-01-11 05:39] LABS: ALBUMIN 2.8 GM/DL (3.2-4.5); BILIRUBIN,TOTAL 0.9 MG/DL (0.1-1.0); CREATININE SERUM 1.49 MG/DL (0.60-1.30); MAGNESIUM 2.2 MG/DL (1.6-2.4); POTASSIUM 4.4 MMOL/L (3.6-5.0); TOTAL PROTEIN 7.6 GM/DL (6.4-8.2)
[2023-01-11] MEDS: RT-ALBUTEROL SULF 2.5 MG/3 ML PRE-MIX VIAL INH PRN (07:06)
[2023-01-11 07:18] VITALS: BP 128/81
[2023-01-11] MEDS: ENOXAPARIN 40 MG/0.4 ML (LOVENOX) SYR SC SCH ×2 (08:45→20:42)
[2023-01-11] MEDS: DOCUSATE SODIUM 100 MG (COLACE) CAP PO SCH ×2 (09:18→19:45)
[2023-01-11] MEDS: SENNOSIDES 8.6 MG (SENOKOT) TAB PO SCH ×2 (09:18→19:45)
--- NOTE | 2023-01-11 10:55 | Physical Therapy Progress Note ---
Therapy Progress Note Patient up with family and multiple family members present. Patient declined PT on this date. 1 ref NAZARIO ELIAS PT Jan 11, 2023 10:55
--- NOTE | 2023-01-11 11:02 | Occ Therapy Progress Note ---
Therapy Progress Note Patient refused therapy services today, additional needs met for family w/ ice water and exploration of nail file. AMBER CHAUDHARY OT Jan 11, 2023 11:02
--- NOTE | 2023-01-11 13:32 | Progress Note ---
Objective Exam Last Set of Vital Signs Vital Signs Date Time Temp Pulse Resp B/P (MAP) Pulse Ox O2 Delivery O2 Flow Rate FiO2 01/11/23 08:00 97 Trach Collar 8.00 01/11/23 07:18 36.0 109 20 128/81 (97) 01/11/23 07:06 30 Capillary Refill : I&O Intake and Output 01/11/23 00:00 Intake Total 940 ml Output Total 1320 ml Balance -380 ml Intake Oral 940 ml Output Urine Total 1120 ml Gastric Drainage Total 200 ml # Voids 6 Results/Procedures Lab Laboratory Tests 01/11/23 05:10: Sodium Level 146H, Potassium Level 4.4, Chloride Level 112H, Carbon Dioxide Level 23, Anion Gap 11, Blood Urea Nitrogen 42H, Creatinine 1.49H, Estimat Glomerular Filtration Rate 40, BUN/Creatinine Ratio 28, Glucose Level 102, Calcium Level 9.0, Corrected Calcium 10.0, Phosphorus Level 4.0, Magnesium Level 2.2, Total Bilirubin 0.9, Aspartate Amino Transf (AST/SGOT) 83H, Alanine Aminotransferase (ALT/SGPT) 112H, Alkaline Phosphatase 306H, Total Protein 7.6, Albumin 2.8L 01/11/23 11:55: Glucometer 120H Assessment/Plan Assessment/Plan (1) Small bowel obstruction Status: Acute Assessment & Plan: Not a surgical candidate, SBO due to cancer mets, receiving TPN, NG in place and receiving chemo. 01/10: Continues to get TPN, NG dependent, discussed goals of care today, patient states that she would like to go home but not on hospice at this time (2) Endometrial cancer Status: Chronic Assessment & Plan: Treatment per Oncology with weekly chemo. Family wondering how long before they will know if effective, discussed that is uncertain, they do recognize that the other option is comfort goals and hospice and I did remind Ayah she can choose that at any point if she wants to. 01/10: No change in bowel status at this time (3) Cancer of peritoneum Status: Chronic (4) Tracheostomy dependent Status: Chronic (5) HTN (hypertension) Status: Chronic (6) Acute on chronic renal failure Status: Acute Assessment & Plan: Worsening creatinine, IVF increased 12/30 (7) Acute hepatitis Status: Acute Assessment & Plan: 01/10: Resultant from cancer/TPN/Chemo, repeat CMP tomorrow AM BRITT VELASCO MD Jan 11, 2023 13:32
[2023-01-11] MEDS: [UNRECOGNIZED DRUG - OTHER] IV SCH ×10 (17:38)
[2023-01-11] MEDS: SODIUM ACETATE IV SCH ×10 (17:38)
[2023-01-11] MEDS: SODIUM PHOSPHATE IV SCH ×10 (17:38)
[2023-01-11] MEDS: POTASSIUM ACETATE IV SCH ×10 (17:38)
[2023-01-11 19:25] VITALS: BP 112/76
[2023-01-12] MEDS: ONDANSETRON 4 MG/2 ML (SDV) Z0FRAN IV PRN ×2 (04:19→08:35)
[2023-01-12 08:21] VITALS: BP 124/87
[2023-01-12] MEDS: SENNOSIDES 8.6 MG (SENOKOT) TAB PO SCH ×2 (09:22→19:35)
[2023-01-12] MEDS: ENOXAPARIN 40 MG/0.4 ML (LOVENOX) SYR SC SCH ×2 (09:22→21:08)
[2023-01-12] MEDS: DOCUSATE SODIUM 100 MG (COLACE) CAP PO SCH ×2 (09:22→19:35)
--- NOTE | 2023-01-12 14:48 | Occupational Ther Daily Note ---
OT Current Status-Daily Note Subjective Patient is sitting EOB w/ family present, patient is more reserved in conversation than previous sessions Mental Status/Objective Patient Orientation: Person, Situation Attachments: NG Tube, Oxygen ADL-Treatment Therapy Code Descriptions/Definitions Functional [place] Measure: 0=Not Assessed/NA 4=Minimal Assistance 1=Total Assistance 5=Supervision or Setup 2=Maximal Assistance 6=Modified [place] 3=Moderate Assistance 7=Complete IndependenceSCALE: Activities may be completed with or without assistive devices. 0-Goaxttcrpj-brayinp completes the activity by him/herself with no assistance from a helper. 5-Set-up or Clean-up Assistance-helper sets up or cleans up; patient completes activity. [place] assists only prior to or following the activity. 4-Supervision or Touching Assistance-helper provides verbal cues and/or touching/steadying and/or contact guard assistance as patient completes activity. Assistance may be provided throughout the activity or intermittently. 3-Partial/Moderate Assistance-helper does LESS THAN HALF the effort. [place] lifts, holds or supports trunk or limbs, but provides less than half the effort. 2-Substantial/Maximal Assistance-helper does MORE THAN HALF the effort. [place] lifts or holds trunk or limbs and provides more than half the effort. 6-Wbgvzxhtb-lphfhw does ALL the effort. Patient does none of the effort to complete the activity. Or, the assistance of 2 or more helpers is required for the patient to complete the activity. If activity was not attempted, code reason: 7-Patient Refused. 9-Not Applicable-not attempted and the patient did not perform the activity before the current illness, exacerbation or injury. 10-Not Attempted due to Environmental Limitations-(lack of equipment, weather restraints, etc.). 88-Not Attempted due to Medical Conditions or Safety Concerns. Nail care provided. Supplies left in room w/ patient, compliments of [employer] in the [employer] no HIPPA breach Education OT Patient Education: Progress toward Goal/Update tx plan, Purpose of tx/functional activities, Reviewed precautions, Rehab process, Safety issues Teaching Recipient: Patient, Family Teaching Methods: Discussion Response to Teaching: Verbalize Understanding OT Retirement Goals Retirement Goals Eating (QC): 4 (if medically able) Oral Hygiene (QC): 5 Toileting Hygiene (QC): 6 Shower/Bathe Self (QC): 4 Upper Body Dressing (QC): 5 Lower Body Dressing (QC): 5 On/Off Footwear (QC): 6 1=Demonstrate adherence to instructed precautions during ADL tasks. 2=Patient will verbalize/demonstrate understanding of assistive devices/modifications for ADL. 3=Patient will improve strength/tolerance for activity to enable patient to perform ADL's. OT Education/Plan Problem List/Assessment Assessment: Decreased Activ Tolerance Discharge Recommendations Plan/Recommendations: Continue POC Treatment Plan/Plan of Care Patient would benefit from OT for education, treatment and training to promote independence in ADL's, mobility, safety and/or upper extremity function for ADL's. Plan of Care: ADL Retraining, Functional Mobility, Group Exercise/Act as Ind, UE Funct Exercise/Act Treatment Duration: Feb 04, 2023 Frequency: 5 times per week Estimated Hrs Per Day: .25 hour per day Agreement: Yes Rehab Potential: Fair Time Start Time: 13:20 Stop Time: 13:35 DATE: Jan 12, 2023 Total Time Billed (hr/min): 15 Billed Treatment Time ADL 15 min AMBER CHAUDHARY OT Jan 12, 2023 14:48
--- NOTE | 2023-01-12 15:58 | Physical Therapy Daily Note ---
PT Daily Note-Current Subjective Patient sitting on the EOB upon PT arrival, agreeable to treatment. Rates pain at 0/10 Pain Section J - Health Conditions 1. Rarely or not at all 2. Occasionally 3. Frequently 4. Almost constantly 8. Unable to answer Pain Effect on Sleep: 1 Pain Interference with Therapy: 1 Pain Interference w/Day-to-Day: 1 Transfers SCALE: Activities may be completed with or without assistive devices. 9-Byrtjqdlty-rxwftie completes the activity by him/herself with no assistance from a helper. 5-Set-up or Clean-up Assistance-helper sets up or cleans up; patient completes activity. [place] assists only prior to or following the activity. 4-Supervision or Touching Assistance-helper provides verbal cues and/or to uching/steadying and/or contact guard assistance as patient completes activity. Assistance may be provided throughout the activity or intermittently. 3-Partial/Moderate Assistance-helper does LESS THAN HALF the effort. [place] lifts, holds or supports trunk or limbs, but provides less than half the effort. 2-Substantial/Maximal Assistance-helper does MORE THAN HALF the effort. [place] lifts or holds trunk or limbs and provides more than half the effort. 2-Cwxpybihl-eubnjg does ALL the effort. Patient does none of the effort to complete the activity. Or, the assistance of 2 or more helpers is required for the patient to complete the activity. If activity was not attempted, code reason: 7-Patient Refused. 9-Not Applicable-not attempted and the patient did not perform the activity before the current illness, exacerbation or injury. 10-Not Attempted due to Environmental Limitations-(lack of equipment, weather restraints, etc.). 88-Not Attempted due to Medical Conditions or Safety Concerns. Sit to Stand (QC): 5 Chair/Mng-mk-Xwdgd Xfer(QC): 5 Weight Bearing Right Lower Extremity: Right Full Weight Bearing Left Lower Extremity: Left Full Weight Bearing Gait Training Does the Patient Walk?: Yes Distance: 300' Walk 10 feet (QC): 4 Walk 50 ft with 2 Turns(QC): 4 Walk 150 ft (QC): 4 Gait Persons Needed: 1 Gait Assistive Device: FWW Assessment Current Status: Good Progress Patient performs all observed transfers with [place]. Patient ambulates 300 feet with FWW, with SBA/CGA. Patient requires 3 short standing rest breaks due to fatigue. Patient sitting EOB post treatment with all needs met, nursing notified, call light in reach and family in the room. PT Fdc Goals Offal Roller Goals PT Offal Roller Goals Time Frame: Feb 04, 2023 Roll Left & Right (QC): 6 Sit to Lying (QC): 6 Lying-Sitting on Side/Bed(QC): 6 Sit to Stand (QC): 6 Chair/Dxl-ek-Wdrxv Xfer(QC): 6 Toilet Transfer (QC): 6 Car Transfer (QC): 6 Does the Patient Walk: Yes Walk 10 feet (QC): 6 Walk 50ft with 2 Turns (QC): 6 Walk 150 ft (QC): 6 Walking 10ft on Uneven Surface: 6 1 Step (curb) (QC): 9 4 Steps (QC): 9 12 Steps (QC): 9 Picking up an Object (QC): 4 Does the Pt use WC or Scooter?: No Wheel 50 feet with 2 turns (QC: 9 Wheel 150 feet: 9 PT Plan Treatment/Plan Treatment Plan: Continue Plan of Care Treatment Plan: Bed Mobility, Education, Functional Activity [place], Functional Strength, Group Therapy, Gait, Safety, Therapeutic Exercise, Transfers Treatment Duration: Feb 04, 2023 Frequency: 6 times per week Estimated Hrs Per Day: .25 hour per day Patient and/or Family Agrees t: Yes Safety Risks/Education Patient Education: Gait Training, Transfer Techniques Teaching Recipient: Patient Teaching Methods: Demonstration, Discussion Response to Teaching: Verbalize Understanding, Return Demonstration Time Time In: 1131 Time Out: 1150 DATE: Jan 12, 2023 Total Billed Treatment Time: 19 Total Billed Treatment Visit, GT MIRELLA ODONNELL PT Jan 12, 2023 15:58
[2023-01-12 16:41] VITALS: BP 124/87
[2023-01-12] MEDS: SODIUM PHOSPHATE IV SCH ×10 (17:30)
[2023-01-12] MEDS: SODIUM ACETATE IV SCH ×10 (17:30)
[2023-01-12] MEDS: [UNRECOGNIZED DRUG - OTHER] IV SCH ×10 (17:30)
[2023-01-12] MEDS: POTASSIUM ACETATE IV SCH ×10 (17:30)
[2023-01-12 19:33] VITALS: BP 109/67
[2023-01-12] MEDS: ONDANSETRON 4 MG/2 ML (SDV) Z0FRAN IVP PRN (20:54)
[2023-01-13 07:30] VITALS: BP 115/68
[2023-01-13] MEDS: ENOXAPARIN 40 MG/0.4 ML (LOVENOX) SYR SC SCH ×2 (08:20→20:40)
[2023-01-13] MEDS: DOCUSATE SODIUM 100 MG (COLACE) CAP PO SCH ×2 (08:20→20:39)
[2023-01-13] MEDS: SENNOSIDES 8.6 MG (SENOKOT) TAB PO SCH ×2 (08:21→20:39)
[2023-01-13] MEDS: ONDANSETRON 4 MG (ZOFRAN) ORAL DISSOLVE TAB PO PRN (08:24)
--- NOTE | 2023-01-13 11:08 | Physical Therapy Progress Note ---
Therapy Progress Note Patient declined PT on this date. PT will attempt tomorrow a.m. 1 ref NAZARIO ELIAS PT Jan 13, 2023 11:08
--- NOTE | 2023-01-13 11:47 | Occ Therapy Progress Note ---
Therapy Progress Note Patient refused therapy this AM, will monitor for participation this afternoon AMBER CHAUDHARY OT Jan 13, 2023 11:47
--- NOTE | 2023-01-13 13:12 | Progress Note ---
Subjective Subjective/Events-last exam Patient depressed affect. Denies any pain. States that her nausea is better this AM. NG in place Review of Systems General: Fatigue, Malaise Gastrointestinal: Nausea, Vomiting, Abdominal Pain Neurological: Weakness, Incoordination Objective Exam Last Set of Vital Signs Vital Signs Date Time Temp Pulse Resp B/P (MAP) Pulse Ox O2 Delivery O2 Flow Rate FiO2 01/13/23 08:00 Trach Collar 8.00 35 01/13/23 07:30 35.7 103 16 115/68 (84) 99 Capillary Refill : I&O Intake and Output 01/13/23 00:00 Intake Total 200 ml Output Total 2975 ml Balance -2775 ml Intake Oral 200 ml Output Urine Total 1150 ml Gastric Drainage Total 1650 ml Other 175 ml # Voids 2 General: Alert, Oriented X3, No Acute Distress Lungs: Clear to Auscultation, Normal Air Movement Heart: Regular Rate, No Murmurs Abdomen: Soft, No Tenderness Psych/Mental Status: Other (depressed affect) Results/Procedures Lab Laboratory Tests 01/13/23 11:49: Glucometer 114H Assessment/Plan Assessment/Plan (1) Small bowel obstruction Status: Acute Assessment & Plan: Not a surgical candidate, SBO due to cancer mets, receiving TPN, NG in place and receiving chemo. 01/10: Continues to get TPN, NG dependent, discussed goals of care today, patient states that she would like to go home but not on hospice at this time 01/13: Chemo tomorrow, repeat CA125 next week (2) Endometrial cancer Status: Chronic Assessment & Plan: Treatment per Oncology with weekly chemo. Family wondering how long before they will know if effective, discussed that is uncertain, they do recognize that the other option is comfort goals and hospice and I did remind Ayah she can choose that at any point if she wants to. 01/10: No change in bowel status at this time (3) Cancer of peritoneum Status: Chronic (4) Tracheostomy dependent Status: Chronic (5) HTN (hypertension) Status: Chronic (6) Acute on chronic renal failure Status: Acute Assessment & Plan: Worsening creatinine, IVF increased 12/30 (7) Acute hepatitis Status: Acute Assessment & Plan: 01/10: Resultant from cancer/TPN/Chemo, repeat CMP tomorrow AM BRITT VELASCO MD Jan 13, 2023 13:12
[2023-01-13] MEDS: SODIUM ACETATE IV SCH ×10 (17:00)
[2023-01-13] MEDS: POTASSIUM ACETATE IV SCH ×10 (17:00)
[2023-01-13] MEDS: [UNRECOGNIZED DRUG - OTHER] IV SCH ×10 (17:00)
[2023-01-13] MEDS: SODIUM PHOSPHATE IV SCH ×10 (17:00)
[2023-01-13] MEDS: ONDANSETRON 4 MG/2 ML (SDV) Z0FRAN IVP PRN (17:13)
[2023-01-13 19:16] VITALS: BP 104/69
[2023-01-14] MEDS: ONDANSETRON 4 MG/2 ML (SDV) Z0FRAN IVP PRN ×3 (04:44→19:54)
[2023-01-14 05:16] LABS: ALBUMIN 2.8 GM/DL (3.2-4.5); POTASSIUM 4.4 MMOL/L (3.6-5.0)
[2023-01-14 05:18] LABS: CALCIUM 9.1 MG/DL (8.5-10.1)
[2023-01-14 05:20] LABS: BILIRUBIN,TOTAL 0.6 MG/DL (0.1-1.0)
[2023-01-14 05:22] LABS: CREATININE SERUM 1.51 MG/DL (0.60-1.30)
[2023-01-14 05:25] LABS: MAGNESIUM 2.2 MG/DL (1.6-2.4)
--- NOTE | 2023-01-14 05:35 | Progress Note - Hospitalist ---
Subjective HPI/CC On Admission Date Seen by Provider: Jan 14, 2023 Time Seen by Provider: 11:00 Subjective/Events-last exam Patient had a bowel movement this morning and 1 later in the afternoon Dr. Danielson and Dr. Blood updated No major concerns Chemotherapy today Objective Exam Vital Signs Vital Signs Date Time Temp Pulse Resp B/P (MAP) Pulse Ox O2 Delivery O2 Flow Rate FiO2 01/15/23 02:41 Trach Collar 8.00 30 01/14/23 19:23 35.0 120 18 136/96 (109) 98 Capillary Refill : General Appearance: No Apparent Distress, WD/WN, Chronically ill Respiratory: No Accessory Muscle Use, No Respiratory Distress, Crackles Cardiovascular: Regular Rate, Rhythm Neurologic/Psychiatric: Alert, Oriented x3, Depressed Affect Results/Procedures Lab Laboratory Tests 01/14/23 10:08 Patient resulted labs reviewed. Assessment/Plan Assessment and Plan Assess & Plan/Chief Complaint (1) Cancer of peritoneum (2) Acute kidney injury Status: Acute (3) Small bowel obstruction Status: Acute (4) Endometrial cancer Status: Acute (5) COPD (chronic obstructive pulmonary disease) Status: Chronic (6) Acute on chronic renal failure Status: Acute (7) Urinary tract infection Status: Resolved Plan: TPN Bowel movements are occurring Chemotherapy ROBINA MELLO DO Jan 14, 2023 05:35
[2023-01-14 07:38] VITALS: BP 136/95
[2023-01-14] MEDS ORDERED: NS IV 500 ML 500 ML ONE (09:52)
[2023-01-14] MEDS: ENOXAPARIN 40 MG/0.4 ML (LOVENOX) SYR SC SCH ×2 (10:00→19:54)
[2023-01-14] MEDS: DOCUSATE SODIUM 100 MG (COLACE) CAP PO SCH ×2 (10:10→21:00)
[2023-01-14] MEDS: SENNOSIDES 8.6 MG (SENOKOT) TAB PO SCH ×2 (10:10→21:00)
[2023-01-14 10:13] LABS: HEMATOCRIT 34 % (35-52); HEMOGLOBIN 10.6 g/dL (11.5-16.0); MEAN CORPUSCULAR HEMOGLOBIN 26 pg (25-34); MEAN CORPUSCULAR HGB CONC 31 g/dL (32-36); MEAN CORPUSCULAR VOLUME 83 fL (80-99); MEAN PLATELET VOLUME 10.8 fL (9.0-12.2); PLATELET COUNT 304 10^3/uL (130-400)
--- NOTE | 2023-01-14 10:30 | Occ Therapy Progress Note ---
Therapy Progress Note Patient currently receiving chemo treatment AMBER CHAUDHARY OT Jan 14, 2023 10:30
--- NOTE | 2023-01-14 14:19 | Physical Therapy Progress Note ---
Therapy Progress Note Patient declined PT on this date. Will attempt tomorrow. 1 ref NAZARIO ELIAS PT Jan 14, 2023 14:19
[2023-01-14 15:46] VITALS: BP 131/94
[2023-01-14] MEDS: POTASSIUM ACETATE IV SCH ×9 (17:54)
[2023-01-14] MEDS: [UNRECOGNIZED DRUG - OTHER] IV SCH ×9 (17:54)
[2023-01-14] MEDS: POTASSIUM PHOSPHATE IV SCH ×9 (17:54)
[2023-01-14 19:23] VITALS: BP 136/96
--- NOTE | 2023-01-15 07:13 | Progress Note - Hospitalist ---
Subjective HPI/CC On Admission Date Seen by Provider: Jan 15, 2023 Time Seen by Provider: 11:00 Subjective/Events-last exam Bowels are continuing to move No falls Much improved Review of Systems General: Fatigue, Malaise Objective Exam Vital Signs Vital Signs Date Time Temp Pulse Resp B/P (MAP) Pulse Ox O2 Delivery O2 Flow Rate FiO2 01/15/23 08:16 35.9 120 18 132/91 (105) 97 Trach Collar 8.00 01/15/23 08:00 30 Capillary Refill : General Appearance: No Apparent Distress, WD/WN, Chronically ill, Obese Respiratory: Lungs Clear, Normal Breath Sounds Cardiovascular: Regular Rate, Rhythm Neurologic/Psychiatric: Alert, Oriented x3, Depressed Affect Results/Procedures Lab Laboratory Tests 01/15/23 09:11 Patient resulted labs reviewed. Assessment/Plan Assessment and Plan Assess & Plan/Chief Complaint (1) Cancer of peritoneum (2) Acute kidney injury Status: Acute (3) Small bowel obstruction Status: Acute (4) Endometrial cancer Status: Acute (5) COPD (chronic obstructive pulmonary disease) Status: Chronic (6) Acute on chronic renal failure Status: Acute (7) Urinary tract infection Status: Resolved Plan: TPN Bowel movements are occurring Chemotherapy ROBINA MELLO DO Jan 15, 2023 07:13
[2023-01-15 08:16] VITALS: BP 132/91
[2023-01-15] MEDS: ONDANSETRON 4 MG/2 ML (SDV) Z0FRAN IVP PRN (08:21)
[2023-01-15] MEDS: ENOXAPARIN 40 MG/0.4 ML (LOVENOX) SYR SC SCH ×2 (08:22→20:28)
[2023-01-15] MEDS: DOCUSATE SODIUM 100 MG (COLACE) CAP PO SCH ×2 (09:19→20:28)
[2023-01-15] MEDS: SENNOSIDES 8.6 MG (SENOKOT) TAB PO SCH ×2 (09:19→20:28)
[2023-01-15 09:26] LABS: BASOPHILS % (AUTO) 0 % (0-10); EOSINOPHILS # (AUTO) 0.1 10^3/uL (0.0-0.3); EOSINOPHILS % (AUTO) 1 % (0-10); HEMATOCRIT 34 % (35-52); HEMOGLOBIN 10.7 g/dL (11.5-16.0); LYMPHOCYTES % (AUTO) 25 % (12-44); MEAN CORPUSCULAR HEMOGLOBIN 26 pg (25-34); MEAN CORPUSCULAR HGB CONC 31 g/dL (32-36); MEAN CORPUSCULAR VOLUME 84 fL (80-99); MEAN PLATELET VOLUME 10.8 fL (9.0-12.2); MONOCYTES # (AUTO) 0.4 10^3/uL (0.0-1.0); MONOCYTES % (AUTO) 5 % (0-12); NEUTROPHILS # (AUTO) 5.6 10^3/uL (1.8-7.8); NEUTROPHILS % (AUTO) 68 % (42-75); PLATELET COUNT 302 10^3/uL (130-400); WHITE BLOOD COUNT 8.3 10^3/uL (4.3-11.0)
[2023-01-15 09:57] LABS: ALBUMIN 3.1 GM/DL (3.2-4.5); BILIRUBIN,TOTAL 0.7 MG/DL (0.1-1.0); CREATININE SERUM 1.56 MG/DL (0.60-1.30); POTASSIUM 4.7 MMOL/L (3.6-5.0); TOTAL PROTEIN 8.3 GM/DL (6.4-8.2)
--- NOTE | 2023-01-15 09:57 | Progress Note ---
Standard Progress Note Progress Notes/Assess & Plan Date Seen by a Provider: Jan 15, 2023 Time Seen by a Provider: 09:52 Progress/Assessment & Plan Patient having small bowel movements and passing flatus since yesterday. Tolerating chemo well. No vomitting. On exam bowel sounds present but hypo active. May clamp NG tube today and start clear liquids. If no nausea or vomitting and bowels continuing to work, may d/c NGT by tomorrow. As oral intake improves, wean and d/c TPN. Will follow patient with you. MARLO HAWKINS Jan 15, 2023 09:56
--- NOTE | 2023-01-15 10:06 | Physical Therapy Progress Note ---
Therapy Progress Note Pt. seated at EOB, declines PT due to bowel issues and having to frequently go back/forth to commode. PT will return 01/16/23. 0838 HELGA CHAVEZ PT Jan 15, 2023 10:06
[2023-01-15] MEDS: [UNRECOGNIZED DRUG - OTHER] IV SCH ×9 (17:37)
[2023-01-15] MEDS: POTASSIUM ACETATE IV SCH ×9 (17:37)
[2023-01-15] MEDS: POTASSIUM PHOSPHATE IV SCH ×9 (17:37)
[2023-01-15 19:33] VITALS: BP 113/69
--- NOTE | 2023-01-16 06:29 | Progress Note - Hospitalist ---
Subjective HPI/CC On Admission Date Seen by Provider: Jan 16, 2023 Time Seen by Provider: 09:00 Subjective/Events-last exam Patient doing a lot better Still having bowel movements No other major concerns No falls Review of Systems General: Fatigue, Malaise Objective Exam Vital Signs Vital Signs Date Time Temp Pulse Resp B/P (MAP) Pulse Ox O2 Delivery O2 Flow Rate FiO2 01/16/23 08:38 35.7 120 18 119/85 (96) 99 Trach Collar 8.00 01/16/23 08:09 30 Capillary Refill : General Appearance: No Apparent Distress, WD/WN Respiratory: Lungs Clear, Normal Breath Sounds Cardiovascular: Regular Rate, Rhythm Neurologic/Psychiatric: Alert, Oriented x3, Depressed Affect Results/Procedures Lab Patient resulted labs reviewed. Assessment/Plan Assessment and Plan Assess & Plan/Chief Complaint (1) Cancer of peritoneum (2) Acute kidney injury Status: Acute (3) Small bowel obstruction Status: Acute (4) Endometrial cancer Status: Acute (5) COPD (chronic obstructive pulmonary disease) Status: Chronic (6) Acute on chronic renal failure Status: Acute (7) Urinary tract infection Status: Resolved Plan: TPN Bowel movements are occurring Chemotherapy ROBINA MELLO DO Jan 16, 2023 06:29
[2023-01-16] MEDS: SENNOSIDES 8.6 MG (SENOKOT) TAB PO SCH ×2 (08:15→20:26)
[2023-01-16] MEDS: ENOXAPARIN 40 MG/0.4 ML (LOVENOX) SYR SC SCH ×2 (08:15→20:26)
[2023-01-16] MEDS: DOCUSATE SODIUM 100 MG (COLACE) CAP PO SCH ×2 (08:15→20:26)
[2023-01-16] MEDS: ONDANSETRON 4 MG (ZOFRAN) ORAL DISSOLVE TAB PO PRN (08:15)
[2023-01-16 08:38] VITALS: BP 119/85
[2023-01-16] MEDS: RT-ALBUTEROL SULF 2.5 MG/3 ML PRE-MIX VIAL INH PRN (08:41)
--- NOTE | 2023-01-16 16:50 | Diagnostic Imaging Report ---
INDICATION: NG tube placement. Time of Exam: 4:38 PM Comparison is made with prior chest from 12/25/2022 NG tube passes below the diaphragm appears to be coiled in the stomach. Tracheostomy tube is in place. Right chest wall port has tip overlying the SVC. Lungs are clear of acute infiltrates. There is no effusion or pneumothorax. IMPRESSION: Satisfactory NG tube placement. Dictated by: Dictated on workstation # [id number]
[2023-01-16] MEDS: POTASSIUM ACETATE IV SCH ×9 (17:55)
[2023-01-16] MEDS: [UNRECOGNIZED DRUG - OTHER] IV SCH ×9 (17:55)
[2023-01-16] MEDS: POTASSIUM PHOSPHATE IV SCH ×9 (17:55)
[2023-01-16 19:46] VITALS: BP 108/63
[2023-01-16 22:01] VITALS: BP 108/63
--- NOTE | 2023-01-17 05:52 | Progress Note - Hospitalist ---
Subjective HPI/CC On Admission Date Seen by Provider: Jan 17, 2023 Time Seen by Provider: 09:00 Subjective/Events-last exam BM+ NGT still in place Monitoring closely Objective Exam Vital Signs Vital Signs Date Time Temp Pulse Resp B/P (MAP) Pulse Ox O2 Delivery O2 Flow Rate FiO2 01/17/23 09:00 98 Trach Collar 8.00 30 01/17/23 07:16 36.6 103 18 114/85 (95) Capillary Refill : General Appearance: No Apparent Distress, WD/WN, Chronically ill Respiratory: Lungs Clear, Normal Breath Sounds Cardiovascular: Regular Rate, Rhythm Results/Procedures Lab Laboratory Tests 01/17/23 06:40 Patient resulted labs reviewed. Assessment/Plan Assessment and Plan Assess & Plan/Chief Complaint (1) Cancer of peritoneum (2) Acute kidney injury Status: Acute (3) Small bowel obstruction Status: Acute (4) Endometrial cancer Status: Acute (5) COPD (chronic obstructive pulmonary disease) Status: Chronic (6) Acute on chronic renal failure Status: Acute (7) Urinary tract infection Status: Resolved Plan: TPN Bowel movements are occurring Chemotherapy ROBINA MELLO DO Jan 17, 2023 05:52
[2023-01-17 06:46] LABS: BASOPHILS % (AUTO) 1 % (0-10); EOSINOPHILS % (AUTO) 1 % (0-10); HEMATOCRIT 36 % (35-52); HEMOGLOBIN 11.1 g/dL (11.5-16.0); LYMPHOCYTES # (AUTO) 1.4 10^3/uL (1.0-4.0); LYMPHOCYTES % (AUTO) 32 % (12-44); MEAN CORPUSCULAR HEMOGLOBIN 26 pg (25-34); MEAN CORPUSCULAR HGB CONC 31 g/dL (32-36); MEAN CORPUSCULAR VOLUME 84 fL (80-99); MEAN PLATELET VOLUME 10.8 fL (9.0-12.2); MONOCYTES # (AUTO) 0.4 10^3/uL (0.0-1.0); MONOCYTES % (AUTO) 9 % (0-12); NEUTROPHILS # (AUTO) 2.5 10^3/uL (1.8-7.8); NEUTROPHILS % (AUTO) 57 % (42-75); PLATELET COUNT 307 10^3/uL (130-400); WHITE BLOOD COUNT 4.3 10^3/uL (4.3-11.0)
[2023-01-17 07:02] LABS: ALBUMIN 2.9 GM/DL (3.2-4.5); BILIRUBIN,TOTAL 0.5 MG/DL (0.1-1.0); CALCIUM 8.5 MG/DL (8.5-10.1); CREATININE SERUM 1.42 MG/DL (0.60-1.30); POTASSIUM 4.6 MMOL/L (3.6-5.0); TOTAL PROTEIN 7.6 GM/DL (6.4-8.2)
[2023-01-17 07:16] VITALS: BP 114/85
[2023-01-17] MEDS: ENOXAPARIN 40 MG/0.4 ML (LOVENOX) SYR SC SCH ×2 (08:54→20:05)
[2023-01-17] MEDS: ONDANSETRON 4 MG/2 ML (SDV) Z0FRAN IVP PRN (09:09)
[2023-01-17] MEDS: SENNOSIDES 8.6 MG (SENOKOT) TAB PO SCH ×2 (09:45→20:05)
[2023-01-17] MEDS: DOCUSATE SODIUM 100 MG (COLACE) CAP PO SCH ×2 (09:45→20:05)
--- NOTE | 2023-01-17 10:30 | Occ Therapy Progress Note ---
Therapy Progress Note Refused therapy this am, OT will attempt in afternoon. Patient requested additional pillows and OT supplied AMBER CHAUDHARY OT Jan 17, 2023 10:30
--- NOTE | 2023-01-17 10:47 | Physical Therapy Progress Note ---
Therapy Progress Note Patient refused PT. PT will dismiss patient from services this week. 1 ref NAZARIO ELIAS PT Jan 17, 2023 10:47
--- NOTE | 2023-01-17 15:21 | Occupational Ther Daily Note ---
OT Current Status-Daily Note Subjective Patient is less motivated to perform independent ADLS, patient wants to know who NG tube is still in if no canister is connected, questions directed to RN. Mental Status/Objective Patient Orientation: Person, Place, Situation Attachments: IV, NG Tube (clamp), Oxygen (8 liters) ADL-Treatment patient reports shower this am, toileting performed w/ OT Therapy Code Descriptions/Definitions Functional [place] Measure: 0=Not Assessed/NA 4=Minimal Assistance 1=Total Assistance 5=Supervision or Setup 2=Maximal Assistance 6=Modified [place] 3=Moderate Assistance 7=Complete IndependenceSCALE: Activities may be completed with or without assistive devices. 6-Wmcgvcjhvc-gcmscon completes the activity by him/herself with no assistance from a helper. 5-Set-up or Clean-up Assistance-helper sets up or cleans up; patient completes activity. [place] assists only prior to or following the activity. 4-Supervision or Touching Assistance-helper provides verbal cues and/or touching/steadying and/or contact guard assistance as patient completes activity. Assistance may be provided throughout the activity or intermittently. 3-Partial/Moderate Assistance-helper does LESS THAN HALF the effort. [place] lifts, holds or supports trunk or limbs, but provides less than half the effort. 2-Substantial/Maximal Assistance-helper does MORE THAN HALF the effort. [place] lifts or holds trunk or limbs and provides more than half the effort. 1-Oxaxcpski-gptbnq does ALL the effort. Patient does none of the effort to complete the activity. Or, the assistance of 2 or more helpers is required for the patient to complete the activity. If activity was not attempted, code reason: 7-Patient Refused. 9-Not Applicable-not attempted and the patient did not perform the activity before the current illness, exacerbation or injury. 10-Not Attempted due to Environmental Limitations-(lack of equipment, weather restraints, etc.). 88-Not Attempted due to Medical Conditions or Safety Concerns. Toileting Hygiene (QC): 5 Toilet Transfer (QC): 5 Education OT Patient Education: Energy conservation, Modified ADL techniques, Progress toward Goal/Update tx plan, Purpose of tx/functional activities, Reviewed precautions, Rehab process, Safety issues, Transfer techniques, Use of adapted equipment Teaching Recipient: Patient Teaching Methods: Discussion Response to Teaching: Verbalize Understanding OT Retirement Goals Retirement Goals Eating (QC): 4 (if medically able) Oral Hygiene (QC): 5 Toileting Hygiene (QC): 6 Shower/Bathe Self (QC): 4 Upper Body Dressing (QC): 5 Lower Body Dressing (QC): 5 On/Off Footwear (QC): 6 1=Demonstrate adherence to instructed precautions during ADL tasks. 2=Patient will verbalize/demonstrate understanding of assistive devic es/modifications for ADL. 3=Patient will improve strength/tolerance for activity to enable patient to perform ADL's. OT Education/Plan Problem List/Assessment Assessment: Decreased Activ Tolerance, Impaired Self-Care Skills Discharge Recommendations Plan/Recommendations: Continue POC Treatment Plan/Plan of Care Patient would benefit from OT for education, treatment and training to promote independence in ADL's, mobility, safety and/or upper extremity function for ADL's. Plan of Care: ADL Retraining, Functional Mobility, Group Exercise/Act as Ind, UE Funct Exercise/Act Treatment Duration: Feb 04, 2023 Frequency: 5 times per week Estimated Hrs Per Day: .25 hour per day Agreement: Yes Rehab Potential: Fair Time Start Time: 14:30 Stop Time: 14:45 DATE: Jan 17, 2023 Total Time Billed (hr/min): 15 Billed Treatment Time ADL 15 min AMBER CHAUDHARY OT Jan 17, 2023 15:21
[2023-01-17] MEDS: POTASSIUM PHOSPHATE IV SCH ×9 (17:53)
[2023-01-17] MEDS: POTASSIUM ACETATE IV SCH ×9 (17:53)
[2023-01-17] MEDS: [UNRECOGNIZED DRUG - OTHER] IV SCH ×9 (17:53)
[2023-01-17 19:56] VITALS: BP 95/70
--- NOTE | 2023-01-18 06:11 | Progress Note - Hospitalist ---
Subjective HPI/CC On Admission Date Seen by Provider: Jan 18, 2023 Time Seen by Provider: 11:00 Subjective/Events-last exam Patient doing a lot better Eating well NG tube out yesterday We will discharge on home health per Dr. Blood recommendations Review of Systems General: Fatigue, Malaise Objective Exam Vital Signs Vital Signs Date Time Temp Pulse Resp B/P (MAP) Pulse Ox O2 Delivery O2 Flow Rate FiO2 01/18/23 19:39 36.7 78 18 101/71 (81) 92 Trach Collar 01/18/23 19:10 8.00 30 Capillary Refill : General Appearance: No Apparent Distress, WD/WN, Chronically ill Respiratory: Lungs Clear, Normal Breath Sounds Results/Procedures Lab Patient resulted labs reviewed. Assessment/Plan Assessment and Plan Assess & Plan/Chief Complaint (1) Cancer of peritoneum (2) Acute kidney injury Status: Acute (3) Small bowel obstruction Status: Acute (4) Endometrial cancer Status: Acute (5) COPD (chronic obstructive pulmonary disease) Status: Chronic (6) Acute on chronic renal failure Status: Acute (7) Urinary tract infection Status: Resolved Plan: TPN Bowel movements are occurring Chemotherapy ROBINA MELLO DO Jan 18, 2023 06:11
[2023-01-18 07:38] VITALS: BP 123/88
[2023-01-18] MEDS: SENNOSIDES 8.6 MG (SENOKOT) TAB PO SCH ×2 (08:06→19:36)
[2023-01-18] MEDS: DOCUSATE SODIUM 100 MG (COLACE) CAP PO SCH ×2 (08:06→19:36)
[2023-01-18] MEDS: ENOXAPARIN 40 MG/0.4 ML (LOVENOX) SYR SC SCH ×2 (08:07→19:38)
[2023-01-18 10:19] LABS: MAGNESIUM 2.4 MG/DL (1.6-2.4); PHOSPHORUS 3.9 MG/DL (2.3-4.7)
[2023-01-18] MEDS: RT-ALBUTEROL SULF 2.5 MG/3 ML PRE-MIX VIAL INH PRN (10:56)
--- NOTE | 2023-01-18 11:25 | Therapy Team Discharge Summary ---
Therapy Discharge Summary Discharge Recommendations Date of Discharge Physical Therapy Patient has declined skilled PT for several days. Patient remains SBA with all gross motor skills and ambulates with nursing PRN in room. Swing bed coordinator notified. PT to dismiss patient from services at this time. Roll Left to Right (QC): 4 Sit to Lying (QC): 4 Lying to Sitting/Side of Bed(Q: 4 Sit to Stand (QC): 5 Chair/Eja-ps-Bvlan Xfer(QC): 5 Toilet Transfer (QC): 6 Car Transfer (QC): 88 Does the Patient Walk: Yes Mode of Locomotion: Walk Walk 10 feet (QC): 4 Walk 50 ft with 2 Turns(QC): 4 Walk 150 ft (QC): 4 Walking 10ft on uneven surface: 88 Distance: 120 feet Gait Assistive Device: FWW Does the Pt Use a Wheelchair: No Wheel 50 ft with 2 turns (QC): 9 Wheel 150 ft (QC): 9 1 Step (curb) (QC): 88 4 Steps (QC): 88 12 Steps (QC): 88 Balance Sitting Static: Good Balance Sitting Dynamic: Good Balance-Standing Static: Fair Picking up an Object (QC): 88 Occupational Therapy Decreased Activ Tolerance, Impaired Self-Care Skills Eating (QC): 88 Oral Hygiene (QC): 5 (sponge swab) Shower/Bathe Self (QC): 7 (Patient sponge bathes, OT recommend patient positionon shower seat and allow assistance for shower hose w/ bathing) Upper Body Dressing (QC): 4 Lower Body Dressing (QC): 5 On/Off Footwear (QC): 5 Toileting Hygiene (QC): 5 PT Ship Boss Goals Custodial Goals PT Ship Boss Goals Time Frame: Feb 04, 2023 Roll Left to Right (QC): 6 Sit to Lying (QC): 6 Lying-Sitting on Side/Bed(QC): 6 Sit to Stand (QC): 6 Chair/Khd-at-Fvjrc Xfer(QC): 6 Toilet/Commode Transfer (QC): 6 Car Transfer (QC): 6 Does the Patient Walk: Yes Walk 10 feet (QC): 6 Walk 10ft-Uneven Surface(QC): 6 Walk 50ft with 2 Turns (QC): 6 Walk 150 ft (QC): 6 Does the Pt use WC or Scooter?: No Wheel 50 feet with 2 turns (QC: 9 Wheel 150 feet: 9 1 Step (curb) (QC): 9 4 Steps (QC): 9 12 Steps (QC): 9 Picking up an Object (QC): 4 OT Ship Boss Goals Custodial Goals Eating (QC): 4 (if medically able) Oral Hygiene (QC): 5 Toileting Hygiene (QC): 6 Shower/Bathe Self (QC): 4 Upper Body Dressing (QC): 5 Lower Body Dressing (QC): 5 On/Off Footwear (QC): 6 1=Demonstrate adherence to instructed precautions during ADL tasks. 2=Patient will verbalize/demonstrate understanding of assistive devices/modifications for ADL. 3=Patient will improve strength/tolerance for activity to enable patient to perform ADL's. NAZARIO ELIAS PT Jan 18, 2023 11:25
--- NOTE | 2023-01-18 15:14 | Occupational Ther Daily Note ---
OT Current Status-Daily Note Subjective Sidelying on bed, request set up for toileting and wham blankets. Mental Status/Objective Less verbal today, slower moving w/ activity ADL-Treatment Therapy Code Descriptions/Definitions Functional [place] Measure: 0=Not Assessed/NA 4=Minimal Assistance 1=Total Assistance 5=Supervision or Setup 2=Maximal Assistance 6=Modified [place] 3=Moderate Assistance 7=Complete IndependenceSCALE: Activities may be completed with or without assistive devices. 2-Yujsmzsrec-pvfkvfv completes the activity by him/herself with no assistance from a helper. 5-Set-up or Clean-up Assistance-helper sets up or cleans up; patient completes activity. [place] assists only prior to or following the activity. 4-Supervision or Touching Assistance-helper provides verbal cues and/or touching/steadying and/or contact guard assistance as patient completes activity. Assistance may be provided throughout the activity or intermittently. 3-Partial/Moderate Assistance-helper does LESS THAN HALF the effort. [place] lifts, holds or supports trunk or limbs, but provides less than half the effort. 2-Substantial/Maximal Assistance-helper does MORE THAN HALF the effort. [place] lifts or holds trunk or limbs and provides more than half the effort. 7-Kksuabdht-thyrbc does ALL the effort. Patient does none of the effort to complete the activity. Or, the assistance of 2 or more helpers is required for the patient to complete the activity. If activity was not attempted, code reason: 7-Patient Refused. 9-Not Applicable-not attempted and the patient did not perform the activity before the current illness, exacerbation or injury. 10-Not Attempted due to Environmental Limitations-(lack of equipment, weather restraints, etc.). 88-Not Attempted due to Medical Conditions or Safety Concerns. On/Off Footwear: 5 Toileting Hygiene (QC): 5 Toilet Transfer (QC): 5 NG tube removed, patient manages own 02 Education OT Patient Education: Disease process, Energy conservation, Modified ADL techniques, Progress toward Goal/Update tx plan, Purpose of tx/functional activities, Reviewed precautions, Rehab process, Safety issues, Transfer techniques Teaching Recipient: Patient Teaching Methods: Discussion Response to Teaching: Return Demonstration OT Fiberglass Autobody Repairer Goals Fiberglass Autobody Repairer Goals Eating (QC): 4 (if medically able) Oral Hygiene (QC): 5 Toileting Hygiene (QC): 6 Shower/Bathe Self (QC): 4 Upper Body Dressing (QC): 5 Lower Body Dressing (QC): 5 On/Off Footwear (QC): 6 1=Demonstrate adherence to instructed precautions during ADL tasks. 2=Patient will verbalize/demonstrate understanding of assistive devices/modifications for ADL. 3=Patient will improve strength/tolerance for activity to enable patient to perform ADL's. OT Education/Plan Problem List/Assessment Assessment: Decreased Activ Tolerance Discharge Recommendations Plan/Recommendations: Continue POC Treatment Plan/Plan of Care Treatment,Training & Education: Yes Patient would benefit from OT for education, treatment and training to promote independence in ADL's, mobility, safety and/or upper extremity function for ADL's. Plan of Care: ADL Retraining, Functional Mobility, Group Exercise/Act as Ind, UE Funct Exercise/Act Treatment Duration: Feb 04, 2023 Frequency: 5 times per week Estimated Hrs Per Day: .25 hour per day Agreement: Yes Rehab Potential: Fair Time Start Time: 14:00 Stop Time: 14:21 DATE: Jan 18, 2023 Total Time Billed (hr/min): 21 Billed Treatment Time ADL 21 min AMBER CHAUDHARY OT Jan 18, 2023 15:14
[2023-01-18] MEDS ORDERED: POTASSIUM PHOSPHATE IV SCH ×10 (17:00)
[2023-01-18] MEDS ORDERED: POTASSIUM ACETATE IV SCH ×10 (17:00)
[2023-01-18] MEDS ORDERED: SODIUM ACETATE IV SCH ×10 (17:00)
[2023-01-18] MEDS ORDERED: [UNRECOGNIZED DRUG - OTHER] IV SCH ×10 (17:00)
[2023-01-18] MEDS: ONDANSETRON 4 MG/2 ML (SDV) Z0FRAN IVP PRN (17:37)
[2023-01-18 19:39] VITALS: BP 101/71
--- NOTE | 2023-01-19 05:46 | Progress Note - Hospitalist ---
Subjective HPI/CC On Admission Date Seen by Provider: Jan 19, 2023 Time Seen by Provider: 08:45 Subjective/Events-last exam Patient doing a lot better TPN still infusing Creatinine 1.8 Bowels are moving She appears to be a little bit more congested so we will order nebulizer treatments Home health at discharge Review of Systems General: Fatigue, Malaise Objective Exam Vital Signs Vital Signs Date Time Temp Pulse Resp B/P (MAP) Pulse Ox O2 Delivery O2 Flow Rate FiO2 01/19/23 19:39 36.5 80 20 93/63 (73) 98 Trach Collar 8.00 01/19/23 15:10 30 Capillary Refill : General Appearance: No Apparent Distress, WD/WN Respiratory: Lungs Clear, Normal Breath Sounds Cardiovascular: Regular Rate, Rhythm Results/Procedures Lab Laboratory Tests 01/19/23 06:15 Patient resulted labs reviewed. Assessment/Plan Assessment and Plan Assess & Plan/Chief Complaint (1) Cancer of peritoneum (2) Acute kidney injury Status: Acute (3) Small bowel obstruction Status: Acute (4) Endometrial cancer Status: Acute (5) COPD (chronic obstructive pulmonary disease) Status: Chronic (6) Acute on chronic renal failure Status: Acute (7) Urinary tract infection Status: Resolved Plan: TPN Bowel movements are occurring Chemotherapy Home health tomorrow ROBINA MELLO DO Jan 19, 2023 05:46
[2023-01-19 06:33] LABS: ALBUMIN 2.6 GM/DL (3.2-4.5); BASOPHILS % (AUTO) 1 % (0-10); EOSINOPHILS % (AUTO) 1 % (0-10); HEMATOCRIT 33 % (35-52); HEMOGLOBIN 10.2 g/dL (11.5-16.0); LYMPHOCYTES % (AUTO) 50 % (12-44); MEAN CORPUSCULAR HEMOGLOBIN 26 pg (25-34); MEAN CORPUSCULAR HGB CONC 31 g/dL (32-36); MEAN CORPUSCULAR VOLUME 84 fL (80-99); MEAN PLATELET VOLUME 11.2 fL (9.0-12.2); MONOCYTES # (AUTO) 0.4 10^3/uL (0.0-1.0); MONOCYTES % (AUTO) 9 % (0-12); NEUTROPHILS # (AUTO) 1.5 10^3/uL (1.8-7.8); NEUTROPHILS % (AUTO) 38 % (42-75); PLATELET COUNT 307 10^3/uL (130-400)
[2023-01-19 06:34] LABS: POTASSIUM 4.2 MMOL/L (3.6-5.0)
[2023-01-19 06:35] LABS: CALCIUM 8.6 MG/DL (8.5-10.1)
[2023-01-19 06:36] LABS: TOTAL PROTEIN 6.8 GM/DL (6.4-8.2)
[2023-01-19 06:38] LABS: BILIRUBIN,TOTAL 0.4 MG/DL (0.1-1.0)
[2023-01-19 06:40] LABS: CREATININE SERUM 1.81 MG/DL (0.60-1.30)
[2023-01-19 07:09] LABS: ATYPICAL LYMPHOCYTES 1 %; BAND NEUTROPHILS 9 %; EOSINOPHILS % (MANUAL) 1 %; HYPOCHROMASIA SLIGHT; LYMPHOCYTES % (MANUAL) 53 %; MONOCYTES % (MANUAL) 7 %; NEUTROPHILS % (MANUAL) 27 %; NUCLEATED RED BLOOD CELLS 1; POLYCHROMASIA SLIGHT; REACTIVE LYMPHOCYTES 2 %
[2023-01-19 07:10] LABS: ANISOCYTOSIS MARKED
[2023-01-19 07:32] VITALS: BP 114/77
[2023-01-19] MEDS: DOCUSATE SODIUM 100 MG (COLACE) CAP PO SCH ×2 (08:12→21:08)
[2023-01-19] MEDS: SENNOSIDES 8.6 MG (SENOKOT) TAB PO SCH ×2 (08:12→21:08)
[2023-01-19] MEDS: ENOXAPARIN 40 MG/0.4 ML (LOVENOX) SYR SC SCH ×2 (08:13→21:46)
[2023-01-19] MEDS: RT-ALBUTEROL/IPRATROPIUM 3 ML (DUONEB) VIAL INH SCH ×3 (10:58→20:14)
[2023-01-19] MEDS: ONDANSETRON 4 MG/2 ML (SDV) Z0FRAN IVP PRN ×2 (11:01→17:14)
[2023-01-19] MEDS: HYDROmorphone 2 MG/ML VIAL (DILAUDID) IV PRN ×2 (12:16→17:14)
--- NOTE | 2023-01-19 14:54 | Therapy Team Discharge Summary ---
Therapy Discharge Summary Discharge Recommendations Date of Discharge OT CHERYLE 01/19/23 Therapy D/C Recommendations: Home w/ Family Support (patient wishes to go home) Physical Therapy Roll Left to Right (QC): 4 Sit to Lying (QC): 4 Lying to Sitting/Side of Bed(Q: 4 Sit to Stand (QC): 5 Chair/Uek-wf-Fqvtp Xfer(QC): 5 Toilet Transfer (QC): 6 Car Transfer (QC): 88 Does the Patient Walk: Yes Mode of Locomotion: Walk Walk 10 feet (QC): 4 Walk 50 ft with 2 Turns(QC): 4 Walk 150 ft (QC): 4 Walking 10ft on uneven surface: 88 Distance: 120 feet Gait Assistive Device: FWW Does the Pt Use a Wheelchair: No Wheel 50 ft with 2 turns (QC): 9 Wheel 150 ft (QC): 9 1 Step (curb) (QC): 88 4 Steps (QC): 88 12 Steps (QC): 88 Balance Sitting Static: Good Balance Sitting Dynamic: Good Balance-Standing Static: Fair Picking up an Object (QC): 88 Occupational Therapy Decreased Activ Tolerance Eating (QC): 88 Oral Hygiene (QC): 6 (sponge swab) Shower/Bathe Self (QC): 7 (Patient sponge bathes, OT recommend patient position on shower seat and allow assistance for shower hose w/ bathing) Upper Body Dressing (QC): 6 Lower Body Dressing (QC): 6 On/Off Footwear (QC): 6 Toileting Hygiene (QC): 6 (uses BSC, staff to manage bucket) BIMS CAM BIMS Expression of Ideas and Wants: Without Difficulty Understanding Verbal Content: Understands Brief Interview/Mental Status: No IRF BRENNON BIMS: IRF BRENNON BIMS Response (Comments) Value Repitition of Three Words Three 3 Recalls Socks Yes, No Cue Required 2 Recalls Blue Yes, No Cue Required 2 Recalls Bed Yes, No Cue Required 2 Year Correct 3 Month Accurate Within 5 Days 2 Day Correct 1 Total 15 Patient Normally Able to Recal: Location of own room, Staff Names and faces, That he/she in a hsp Should Staff Asses. Mental St.: No PT Featheredger And Reducer Machine Goals Nursing Home Goals PT Nursing Home Goals Time Frame: Feb 04, 2023 Roll Left to Right (QC): 6 Sit to Lying (QC): 6 Lying-Sitting on Side/Bed(QC): 6 Sit to Stand (QC): 6 Chair/Hqg-vx-Pfytj Xfer(QC): 6 Toilet/Commode Transfer (QC): 6 Car Transfer (QC): 6 Does the Patient Walk: Yes Walk 10 feet (QC): 6 Walk 10ft-Uneven Surface(QC): 6 Walk 50ft with 2 Turns (QC): 6 Walk 150 ft (QC): 6 Does the Pt use WC or Scooter?: No Wheel 50 feet with 2 turns (QC: 9 Wheel 150 feet: 9 1 Step (curb) (QC): 9 4 Steps (QC): 9 12 Steps (QC): 9 Picking up an Object (QC): 4 OT Featheredger And Reducer Machine Goals Nursing Home Goals Eating (QC): 4 (if medically able) Oral Hygiene (QC): 6 Toileting Hygiene (QC): 6 Shower/Bathe Self (QC): 6 Upper Body Dressing (QC): 6 Lower Body Dressing (QC): 6 On/Off Footwear (QC): 6 1=Demonstrate adherence to instructed precautions during ADL tasks. 2=Patient will verbalize/demonstrate understanding of assistive devices/modifications for ADL. 3=Patient will improve strength/tolerance for activity to enable patient to perform ADL's. AMBER CHAUDHARY OT Jan 19, 2023 14:54
[2023-01-19] MEDS ORDERED: SODIUM ACETATE IV SCH ×10 (17:00)
[2023-01-19] MEDS ORDERED: [UNRECOGNIZED DRUG - OTHER] IV SCH ×10 (17:00)
[2023-01-19] MEDS ORDERED: POTASSIUM PHOSPHATE IV SCH ×10 (17:00)
[2023-01-19] MEDS ORDERED: POTASSIUM ACETATE IV SCH ×10 (17:00)
[2023-01-19 19:39] VITALS: BP 93/63
[2023-01-20] MEDS: RT-ALBUTEROL/IPRATROPIUM 3 ML (DUONEB) VIAL INH SCH (07:02)
[2023-01-20 07:34] VITALS: BP 105/57
--- NOTE | 2023-01-20 07:53 | Progress Note - Hospitalist ---
Subjective HPI/CC On Admission Date Seen by Provider: Jan 20, 2023 Time Seen by Provider: 11:00 Focused Exam Lactate Level 01/20/23 08:25: Lactic Acid Level 1.08 Objective Exam Vital Signs Vital Signs Date Time Temp Pulse Resp B/P (MAP) Pulse Ox O2 Delivery O2 Flow Rate FiO2 01/20/23 13:00 01/20/23 08:00 100 Trach Collar 8.00 35 01/20/23 07:34 36.9 119 16 Capillary Refill : Results/Procedures Lab Laboratory Tests 01/20/23 09:11 Patient resulted labs reviewed. Assessment/Plan Assessment and Plan Assess & Plan/Chief Complaint (1) Cancer of peritoneum (2) Acute kidney injury Status: Acute (3) Small bowel obstruction Status: Acute (4) Endometrial cancer Status: Acute (5) COPD (chronic obstructive pulmonary disease) Status: Chronic (6) Acute on chronic renal failure Status: Acute (7) Urinary tract infection Status: Resolved Plan: TPN Bowel movements are occurring Chemotherapy Home health tomorrow ROBINA MELLO DO Jan 20, 2023 07:53
[2023-01-20] MEDS ORDERED: NS (IVPB) 250 ML IV ONE (08:00)
--- NOTE | 2023-01-20 08:23 | Diagnostic Imaging Report ---
EXAMINATION: Chest 1 view HISTORY: Sepsis COMPARISON: 01/16/2023 FINDINGS: Heart size and pulmonary vasculature are normal. The lungs are clear without consolidation, pleural effusion, or pneumothorax. The osseous structures are intact. Medical support lines and tubes are unchanged. IMPRESSION: 1. No acute radiographic abnormality in the chest. Dictated by: Dictated on workstation # [id number]
[2023-01-20 08:36] LABS: BILIRUBIN,URINE NEGATIVE (NEGATIVE); CLARITY,URINE CLOUDY; COLOR,URINE YELLOW; GLUCOSE, URINE (UA) NEGATIVE (NEGATIVE); KETONES,URINE NEGATIVE (NEGATIVE); LEUKOCYTE ESTERASE ,URINE 1+ (NEGATIVE); NITRITE,URINE NEGATIVE (NEGATIVE); PH,URINE 5.5 (5-9); PROTEIN,URINE 1+ (NEGATIVE)
[2023-01-20 08:50] LABS: AMORPHOUS SEDIMENT,UR MOD AMOR URATES /LPF; BACTERIA,URINE LARGE /HPF; WBC,URINE 0-2 /HPF
[2023-01-20] MEDS: DOCUSATE SODIUM 100 MG (COLACE) CAP PO SCH (08:50)
[2023-01-20] MEDS: SENNOSIDES 8.6 MG (SENOKOT) TAB PO SCH (08:50)
[2023-01-20] MEDS: ENOXAPARIN 40 MG/0.4 ML (LOVENOX) SYR SC SCH (08:50)
[2023-01-20 09:19] LABS: BASOPHILS % (AUTO) 1 % (0-10); EOSINOPHILS # (AUTO) 0.1 10^3/uL (0.0-0.3); EOSINOPHILS % (AUTO) 1 % (0-10); HEMATOCRIT 32 % (35-52); HEMOGLOBIN 9.9 g/dL (11.5-16.0); LYMPHOCYTES # (AUTO) 2.4 10^3/uL (1.0-4.0); LYMPHOCYTES % (AUTO) 42 % (12-44); MEAN CORPUSCULAR HEMOGLOBIN 26 pg (25-34); MEAN CORPUSCULAR HGB CONC 31 g/dL (32-36); MEAN CORPUSCULAR VOLUME 85 fL (80-99); MEAN PLATELET VOLUME 11.1 fL (9.0-12.2); MONOCYTES # (AUTO) 0.5 10^3/uL (0.0-1.0); MONOCYTES % (AUTO) 9 % (0-12); NEUTROPHILS # (AUTO) 2.5 10^3/uL (1.8-7.8); NEUTROPHILS % (AUTO) 43 % (42-75); PLATELET COUNT 433 10^3/uL (130-400); WHITE BLOOD COUNT 5.7 10^3/uL (4.3-11.0)
[2023-01-20 09:33] LABS: ALBUMIN 2.5 GM/DL (3.2-4.5); POTASSIUM 4.4 MMOL/L (3.6-5.0)
[2023-01-20 09:34] LABS: CALCIUM 8.7 MG/DL (8.5-10.1)
[2023-01-20 09:36] LABS: TOTAL PROTEIN 6.6 GM/DL (6.4-8.2)
[2023-01-20 09:37] LABS: BILIRUBIN,TOTAL 0.4 MG/DL (0.1-1.0)
[2023-01-20 09:39] LABS: CREATININE SERUM 1.95 MG/DL (0.60-1.30)
[2023-01-20] MEDS: ONDANSETRON 4 MG/2 ML (SDV) Z0FRAN IVP PRN (11:38)
[2023-01-20] MEDS: HYDROmorphone 2 MG/ML VIAL (DILAUDID) IV PRN (11:38)
[2023-01-20] MEDS ORDERED: ONDA8TAB13 SL (11:49)
[2023-01-20] MEDS ORDERED: SENN-234 PO (11:49)
[2023-01-20] MEDS ORDERED: ALBU2.5V4 PO (11:49)
[2023-01-20] MEDS ORDERED: OXC5T PO (11:49)
--- NOTE | 2023-01-20 11:52 | Discharge Summary ---
Discharge Summary Hospital Course Was the Problem List Reviewed?: Yes Problems/Dx: (1) Small bowel obstruction Status: Acute (2) Endometrial cancer Status: Chronic (3) Cancer of peritoneum Status: Chronic (4) HTN (hypertension) Status: Chronic (5) Tracheostomy dependent Status: Chronic (6) Acute on chronic renal failure Status: Acute (7) Acute hepatitis Status: Acute (8) COPD exacerbation Status: Acute Hospital Course Date of Admission: December 23, 2022 at 11:16 Admission Diagnosis : Family Physician/Provider: Dorcas Aaron MD Date of Discharge: 01/20/23 Discharge Diagnosis: [ ] Hospital Course: Patient had a lengthy swing bed hospital course but most of his uncomplicated. NG tube remained until the last few days before discharge due to resolution of small bowel obstruction. Chemotherapy was initiated every week which seem to be helping with the bowel obstruction. Chronic kidney disease was noted and was monitored. I stressed to her she needed to increase her fluid intake. Tachycardia did occur 2 days prior to discharge revealing no evidence of sepsis but instead volume depletion so it was recommended she increase her fluid intake. Home health was arranged. Overall prognosis guarded since this is palliative chemotherapy Labs and Pending Lab Test: Laboratory Tests 01/20/23 08:15: Urine Color YELLOW, Urine Clarity CLOUDY, Urine pH 5.5, Urine Specific [place] 1.010L, Urine Protein 1+H, Urine Glucose (UA) NEGATIVE, Urine Ketones NEGATIVE, Urine Nitrite NEGATIVE, Urine Bilirubin NEGATIVE, Urine Urobilinogen 0.2, Urine Leukocyte Esterase 1+H, Urine RBC (Auto) 2+H, Urine RBC 5-10H, Urine WBC 0-2, Urine Squamous Epithelial Cells 5-10, Urine Crystals PRESENTH, Urine Amorphous Sediment MOD ENMANUEL URATESH, Urine Bacteria LARGEH, Urine Casts NONE, Urine Mucus NEGATIVE, Urine Culture Indicated YES 01/20/23 08:25: Lactic Acid Level 1.08 01/20/23 09:11: White Blood Count 5.7, Red Blood Count 3.75L, Hemoglobin 9.9L, Hematocrit 32L, Mean Corpuscular Volume 85, Mean Corpuscular Hemoglobin 26, Mean Corpuscular Hemoglobin Concent 31L, Red Cell Distribution Width 21.6H, Platelet Count 433H, Mean Platelet Volume 11.1, Immature Granulocyte % (Auto) 5, Neutrophils (%) (Auto) 43, Lymphocytes (%) (Auto) 42, Monocytes (%) (Auto) 9, Eosinophils (%) (Auto) 1, Basophils (%) (Auto) 1, Neutrophils # (Auto) 2.5, Lymphocytes # (Auto) 2.4, Monocytes # (Auto) 0.5, Eosinophils # (Auto) 0.1, Basophils # (Auto) 0.0, Immature Granulocyte # (Auto) 0.3H, Sodium Level 141, Potassium Level 4.4, Chloride Level 115H, Carbon Dioxide Level 17L, Anion Gap 9, Blood Urea Nitrogen 83H, Creatinine 1.95H, Estimat Glomerular Filtration Rate 29, BUN/Creatinine Ratio 43, Glucose Level 139H, Calcium Level 8.7, Corrected Calcium 9.9, Total Bilirubin 0.4, Aspartate Amino Transf (AST/SGOT) 31, Alanine Aminotransferase (ALT/SGPT) 37, Alkaline Phosphatase 232H, Total Protein 6.6, Albumin 2.5L Home Meds Active Ondansetron Odt (Ondansetron) 8 Mg Tab.rapdis 8 Mg SL Q4H PRN Senna (Sennosides) 8.6 Mg Tablet 8.6 Mg PO DAILY Oxyir Tablet (Oxycodone HCl) 5 Mg Tab 5 Mg PO Q6H PRN Albuterol Sulfate 2.5 Mg/3 Ml (0.083 %) Vial.neb 1 Vial PO Q6H PRN Reported Ventolin Hfa (Albuterol Sulfate) 90 Mcg Hfa.aer.ad 2 Puff INH Q6H PRN Assessment/Pt Instructions Dr. Blood is scheduled Discharge Planning: <30 minutes discharge planning Discharge Instructions Discharge Diet: Soft Diet Discharge Physical Examination Vital Signs Vital Signs Date Time Temp Pulse Resp B/P (MAP) Pulse Ox O2 Delivery O2 Flow Rate FiO2 01/20/23 08:00 100 Trach Collar 8.00 35 01/20/23 07:34 36.9 119 16 105/57 (73) General Appearance: No Apparent Distress, WD/WN, Chronically ill Allergies: Coded Allergies: No Known Drug Allergies (Unverified , 07/16/22) Discharge Summary Date of Admission December 23, 2022 at 11:16 Date of Discharge Discharge Date: Jan 20, 2023 Discharge Diagnosis (1) Cancer of peritoneum (2) Acute kidney injury Status: Acute (3) Small bowel obstruction Status: Acute (4) Endometrial cancer Status: Acute (5) COPD (chronic obstructive pulmonary disease) Status: Chronic (6) Acute on chronic renal failure Status: Acute (7) Urinary tract infection Status: Resolved Plan: TPN Bowel movements are occurring Chemotherapy Home health tomorrow ROBINA MELLO DO Jan 20, 2023 11:52
--- NOTE | 2023-01-20 11:52 | D/C HH Face to Face Order ---
D/C Face to Face Orders Reconcile Patient Problems Problems Reviewed?: Yes Instructions for Patient [facility] [employer] [employer], Patient Instructions/FollowUp: Dr Lai as scheduled Physician to follow Patient: Ming Discharge Diet for Home: Soft Diet Patient Problems: SBP Endometrial cancer with mets Dehydration Goals for Patient: Increase PO fluids Patient Data-Allergies,Ht & Wt Patient Allergies: Coded Allergies: No Known Drug Allergies (Unverified , 07/16/22) Height (Feet): 5 Height (Inches): 5.00 Weight (Pounds): 335 Weight (Ounces): 0.4 Home Health Need/Face to Face Date of Face to Face: Jan 20, 2023 Clinical Findings: Generalized weakness and fatigue, Instability, Muscle weakness I have seen Pt [id number]: Yes Discharged To: Home Diagnosis/Conditions: Debility Patient is Homebound due to: Muscle weakness Homebound Status Due to the above stated illness, injury or surgical procedure (medical condition or diagnosis) and associated clinical findings, the patient is homebound because of his/her inability to leave home except with aid of a supportive device and/or person AND leaving the home requires a considerable and taxing effort or is medically contraindicated. Pt req the following assistanc: Walker Home Health Nursing Orders Home Health Services Order: Nursing Services, Design Engineering Manager-Evaluate & Treat, Physical Therapy-Evaluate & Treat Home Health Infusion Therapy Line Start Date: January 04, 2023 Certify Stmt I certify that this patient is under my care and that I, a nurse practitioner or a physician; a medical assistant cardiology working with me, had a face to face encounter that - meets the physician face to face encounter requirements with this patient as dated. ROBINA MELLO DO Jan 20, 2023 11:51
== END 2023-01-20 13:27 | disposition home health service (06) | DRG 375 ==
LOC: 4TH 11:16
PROVIDERS: ADMIT Internal Medicine; ATTEND Internal Medicine
DX: C78.6 Secondary malignant neoplasm of retroperitoneum and peritoneum (principal); B17.9 Acute viral hepatitis, unspecified; E46 Unspecified protein-calorie malnutrition; K56.691 Other complete intestinal obstruction; N17.9 Acute kidney failure, unspecified; J44.1 Chronic obstructive pulmonary disease with (acute) exacerbation; Z68.42 Body mass index [BMI] 45.0-49.9, adult; C54.1 Malignant neoplasm of endometrium; I12.9 Hypertensive chronic kidney disease with stage 1 through stage 4 chronic kidney disease, or unspecified chronic kidney disease; N18.9 Chronic kidney disease, unspecified; E66.01 Morbid (severe) obesity due to excess calories; E86.9 Volume depletion, unspecified; I87.2 Venous insufficiency (chronic) (peripheral); Z93.0 Tracheostomy status
CPT/HCPCS: 36415; 71045; 80048; 80053; 81000; 82947; 83605; 83735; 84100; 84134; 84478; 85007; 85025; 85027; 86304; 87040; 87077; 87088; 94640; 94760

== ENCOUNTER → 2023-01-27 | Outpatient (CLI) | payer MEDICARE, MEDICAID ==
[~2023-01-27] MED LIST changes: +IOHEXOL 300 MG/ML 50 ML (OMNIPAQUE 300) VIAL IV ONE; +ONDA8TAB13 SL; +OXC5T PO; +SENN-234 PO
--- NOTE | 2023-01-27 16:42 | Diagnostic Imaging Report ---
INDICATION: Malfunctioning chest wall port. Patient was brought to the fluoroscopy suite and placed on table in the supine position. The patient's right chest wall port was already accessed by oncology nursing. Fluoroscopy over the chest was performed during the injection of approximately 20 mL of Omnipaque 300 contrast. 29 seconds of fluoroscopic time was utilized. Three images were obtained. Preliminary radiograph of the chest demonstrates a right chest wall port with tip overlying the SVC. No kinking or interruption of the tubing is identified. During injection of the port, there is normal flow of contrast through the port tubing and out the catheter tip into the right atrium. There is no evidence of abnormal extravasation of contrast. The port appeared to flush normally. There was normal aspiration of blood. IMPRESSION: Normal-appearing port study. Dictated by: Dictated on workstation # [id number]
== END ==
LOC: RAD 14:35
PROVIDERS: ATTEND Internal Medicine Hematology & Oncology
DX: T82.898D Other specified complication of vascular prosthetic devices, implants and grafts, subsequent encounter (principal)
CPT/HCPCS: 36598